=== PATIENT | female | born 1945 | race Caucasian/White ===

== ENCOUNTER → 2019-12-09 | Outpatient (CLI) | payer MEDICARE, OTHER ==
--- NOTE | 2019-12-09 11:26 | XR ---
EXAMINATION TYPE: XR cervical spine comp DATE OF EXAM: 12/09/2019 COMPARISON: None HISTORY: Cervicalgia TECHNIQUE: Five-view cervical spine FINDINGS: There is loss of disc height diffusely through the mid cervical spine. This appears greates t at C4-5 C5-6 C6-7. Some minimal endplate spurring at C4-5 C5-6 may be present. Posterior spinal hampton ellar line is intact. Mild foraminal narrowing is present C5-6 on the right. Moderate foraminal narro wing is present C5-6 on the left. Milder C4-5 and C6-7 foraminal narrowing is present. Facet degenera tive changes are present. Odontoid is limited due to overlying occiput. IMPRESSION: 1. Foraminal narrowing greater on the left than the right. Greatest through the C5-6 level. 2. Degenerative disc changes through the mid cervical spine. 3. No acute osseous abnormality.
--- NOTE | 2019-12-09 11:30 | XR ---
EXAMINATION TYPE: XR shoulder complete RT DATE OF EXAM: 12/09/2019 COMPARISON: NONE HISTORY: Pain TECHNIQUE: Shoulder examined in 3 projections FINDINGS: The humeral head articulates with the glenoid. There is loss of joint space in this region. Some mamadou ral head spurring is present. The acromio-clavicular junction is normal. No acute fractures or dislocations are evident. A follow up study can be performed 7-10 days from acute trauma for continued pain. IMPRESSION: 1. Moderate osteoarthritic degenerative change right shoulder
== END | disposition home or self-care (01) ==
LOC: RADXRYALE 10:44
PROVIDERS: ATTEND Family Medicine
DX: M48.02 Spinal stenosis, cervical region (principal); M47.812 Spondylosis without myelopathy or radiculopathy, cervical region; M19.011 Primary osteoarthritis, right shoulder
CPT/HCPCS: 72050

== ENCOUNTER → 2020-08-04 | Outpatient (CLI) | payer MEDICARE, OTHER ==
[2020-08-04 13:58] VITALS: BP 118/77; PULSE 90; RESP 20; TEMP 98.1
--- NOTE | 2020-08-04 14:27 | P.PAINCN ---
History of Present Illness - Reason for Consult Consult date: 08/04/20 - History of Present Illness Trisha is a 74-year-old female presents today as a new patient consult. She presents a chief complaint of neck pain and shoulder pain. She'll be seen Dr. Blanco and she has had cervical medial branch blocks which she reports improved her pain significantly. She is here today to schedule a second cervical medial branch blocks at the C3 4 C4 5 levels. She denies any significant numbness or tingling down her arms. She has bilateral shoulder weakness. She has a lot of difficulty raising her arms up above 90. She seen Dr. Marvin for that and he given her to steroid injections which did not improve her symptoms. She does have a follow-up appointment with him. She also does have a history of low back pain, she reports she has lumbar spinal stenosis with pain in the low spine rating down both legs occasionally. She occasionally has weakness but is doing okay right now. We do not have that MRI available at this time. \ X-rays of the cervical spine show potential left foraminal narrowing from C4 to C5 and C5-C6. Is also moderate osteoporosis of the shoulder joint on the left. Review of Systems Negative except as mentioned in HPI Past Medical History Past Medical History: Asthma, GERD/Reflux, Hypertension, Sleep Apnea/CPAP/BIPAP Additional Past Medical History / Comment(s): NO CURRENT MACHINE FOR SLEEP APNEA, hx gastric sleeve, .hx of septicemia., neck, back and shoulder pain, uses cane and rolling walker prn. History of Any Multi-Drug Resistant Organisms: None Reported Past Surgical History: Adenoidectomy, Bariatric Surgery, Hernia Repair, Joint Replacement, Tonsillectomy Additional Past Surgical History / Comment(s): GASTRIC SLEEVE (2010- DR MENDEZ), CARPAL TUNNEL MARILYN, CATARACTS, INGUINAL HERNIA, MARILYN TOTAL KNEES, RIGHT TOTAL HIP., injections in back for spinal stenosis and cervical injections Past Anesthesia/Blood Transfusion Reactions: No Reported Reaction, Motion Sickness Past Psychological History: Anxiety, Depression Smoking Status: Never smoker Past Alcohol Use History: None Reported Additional Drug Use History / Comment(s): cbd gummies daily - Past Family History Mother Family Medical History: No Reported History Medications and Allergies Home Medications Medication Instructions Recorded Confirmed Type ALPRAZolam [Xanax] 0.25 mg PO BID PRN 08/02/20 08/04/20 History Allopurinol [Zyloprim] 300 mg PO DAILY 08/02/20 08/04/20 History Amoxicillin 2,000 mg PO ONCE PRN 08/02/20 08/04/20 History Budesonide [Rhinocort Allergy] 1 spr EA NOSTRIL DAILY 08/02/20 08/04/20 History Calcium 600 With D3 1 tab PO DAILY 08/02/20 08/04/20 History Cannabidiol (Cbd) [Epidiolex] 1 dose PO DAILY 08/02/20 08/04/20 History Cholecalciferol [Vitamin D3 (25 4,000 unit PO DAILY 08/02/20 08/04/20 History Mcg = 1000 Iu)] FLUoxetine HCL [PROzac] 60 mg PO DAILY 08/02/20 08/04/20 History Famotidine [Pepcid] 20 mg PO DAILY 08/02/20 08/04/20 History Ipratropium/Albuterol Updraft 1 dose PO DIRECTED 08/02/20 08/04/20 History Loratadine [Claritin] 10 mg PO DAILY 08/02/20 08/04/20 History Losartan/Hydrochlorothiazide 1 tab PO DAILY 08/02/20 08/04/20 History [Losartan-Hctz 100-25 mg Tab] Multivitamins, Thera [Multivitamin 1 tab PO DAILY 08/02/20 08/04/20 History (formulary)] Naproxen Sodium [Aleve] 220 - 660 mg PO DAILY PRN 08/02/20 08/04/20 History Simvastatin [Zocor] 20 mg PO HS 08/02/20 08/04/20 History Zafirlukast [Accolate] 20 mg PO BID 08/02/20 08/04/20 History amLODIPine BESYLATE 10 mg PO DAILY 08/02/20 08/04/20 History busPIRone HCL 10 mg PO BID 08/02/20 08/04/20 History Allergies Allergy/AdvReac Type Severity Reaction Status Date / Time sulfamethoxazole AdvReac Unknown STOMACH Verified 08/02/20 15:58 [From Bactrim] PAIN trimethoprim [From Bactrim] AdvReac Unknown STOMACH Verified 08/02/20 15:58 PAIN HORSE SERUM TETANAS Allergy Severe Anaphylaxis Uncoded 08/02/20 15:57 Physical Exam General: Awake and alert oriented 3 no distress Respiratory exam: No audible wheezing no accessory muscle usage Cardiovascular exam: regular rate, palpable bilateral pulses, no lower extremity edema Abdominal exam: No distention nontender to palpation Cervical spine: Flexion is preserved, extension is limited to 0 P. Right and left lateral sidebending are significantly limited. Braswell's is negative bilaterally. Upper shoulder strength is normal bilaterally. Woods Overseer strength is normal. Pincer grasp is normal. Lumbar spine: Loss of lumbar lordosis, atrophy of the paraspinal muscles. Lower extremity strength is 4-5 bilaterally at the hamstrings and quadriceps. Is able stand on her toes and her heels. Deep tendon reflexes are 2+ bilaterally. Sacroiliac joints: Nontender to palpation, ALEX is negative, Gaenselon negative Neuro exam: Normal sensation in bilateral upper extremities, deep tendon reflexes are 2+ bilateral upper extremities. Normal sensation in bilateral lower extremities. Deep tendon reflexes are 2+ in lower extremities Psych exam: Cooperative, appropriate mood Assessment and Plan Assessment: Cervical spondylosis without myelopathy Shoulder also arthritis, Lumbar spinal stenosis Plan: Schedule for bilateral cervical medial branch blocks at the C3-C4, C4-C5 levels bilaterally. This is because the second test injection. She had one done Dr. Blanco's office. We discussed beta frequency ablation of the cervical spine the potential long-term treatment. We discussed that she follow-up with Dr. Marvin for shoulder pain. Do not believe any steroid injections would improve her shoulder function. PQRS Measure Charge Sheet Measure #130: Documentation of Current Meds in Medical Chart: Patient's medications documented in chart Measure #226: Tobacco Use: Screen & Cessation Intervention: Pt screened for tobacco use AND intervention given Measure #111: Pneumonia Vaccination: Pneumococcal vaccine administered or previously received Measure #47: Advance Care Plan: Advance care planning discussed & documented, plan or surrogate given Measure #412: Opioid Treatment Agreement: Documented signed opioid trtmnt agreemnt min once during opioid trtmnt Measure #408: Opioid Therapy Follow-up Evaluation: Patient had NO f/u eval minimum every 3 months during opioid therapy Measure #317: Preventitive Care & Scrn High Bld Press & F/U: Normal blood pressure, f/u not required Measure #128: Body Mass Index (BMI) Screening & Follow-up: BMI documented ABOVE normal parameters - f/u documented Measure #131: Pain Assessment & Follow-up: Pain positive & plan documented Measure #431: Unhealthy Alcohol Use Preventative Care & Scrn: Patient not identified as an unhealthy alcohol user PQRS Narrative: Pain Intensity [Bilateral 10 Shoulder] Pain Intensity [Lower Back] 7 Pain Intensity [Neck] 1 Scale Used Numeric (1 - 10) Home Medications: Ambulatory Orders ALPRAZolam [Xanax] 0.25 mg PO BID PRN 08/02/20 Allopurinol [Zyloprim] 300 mg PO DAILY 08/02/20 Amoxicillin 2,000 mg PO ONCE PRN 08/02/20 Budesonide [Rhinocort Allergy] 1 spr EA NOSTRIL DAILY 08/02/20 Calcium 600 With D3 1 tab PO DAILY 08/02/20 Cannabidiol (Cbd) [Epidiolex] 1 dose PO DAILY 08/02/20 Cholecalciferol [Vitamin D3 (25 Mcg = 1000 Iu)] 4,000 unit PO DAILY 08/02/20 FLUoxetine HCL [PROzac] 60 mg PO DAILY 08/02/20 Famotidine [Pepcid] 20 mg PO DAILY 08/02/20 Ipratropium/Albuterol Updraft 1 dose PO DIRECTED 08/02/20 Loratadine [Claritin] 10 mg PO DAILY 08/02/20 Losartan/Hydrochlorothiazide [Losartan-Hctz 100-25 mg Tab] 1 tab PO DAILY 08/02/20 Multivitamins, Thera [Multivitamin (formulary)] 1 tab PO DAILY 08/02/20 Naproxen Sodium [Aleve] 220 - 660 mg PO DAILY PRN 08/02/20 Simvastatin [Zocor] 20 mg PO HS 08/02/20 Zafirlukast [Accolate] 20 mg PO BID 08/02/20 amLODIPine BESYLATE 10 mg PO DAILY 08/02/20 busPIRone HCL 10 mg PO BID 08/02/20
== END | disposition home or self-care (01) ==
LOC: PNWHC3 13:41
PROVIDERS: ATTEND Hospitalist
DX: M48.061 Spinal stenosis, lumbar region without neurogenic claudication (principal); M47.812 Spondylosis without myelopathy or radiculopathy, cervical region; M19.019 Primary osteoarthritis, unspecified shoulder; Z79.899 Other long term (current) drug therapy; Z79.02 Long term (current) use of antithrombotics/antiplatelets; Z79.1 Long term (current) use of non-steroidal anti-inflammatories (NSAID)
CPT/HCPCS: 99211

== ENCOUNTER → 2020-08-27 | Day surgery (SDC) | payer MEDICARE, OTHER ==
[~2020-08-27] MED LIST: IOPAMIDOL M200 10 ML VIAL ONE; IV FLUID CONTINUATION 600 ML IV ONE; LACTATED RINGERS 1,000 ML IV ONE; LIDOCAINE 1% (10MG/ML) FOR IV START INTRADERMA ONE; MIDAZOLAM 2 MG/2 ML VIAL ONE; ROPIVACAINE 5MG/ML 20ML VIAL ONE; fentaNYL (PF) 50 MCG/ML 2 ML AMP ONE
[2020-08-27 12:45] VITALS: RESP 16; TEMP 97.8
--- NOTE | 2020-08-27 13:54 | P.PCN ---
Date of Procedure: 08/27/20 Description of Procedure: PREOPERATIVE DIAGNOSIS : Cervicalgia with Facet Arthropathy without myelopathy POSTOPERATIVE DIAGNOSIS: same PROCEDURE: second Diagnostic cervical medial branch block with fluoroscopy at C3, C4, C5 [bilateral] which covers facets C3-C4 and C4-C5 ANESTHESIA: Local anesthetic; moderate IV sedation Fluoroscopy was used for the procedure and images were saved in the radiology portion of the chart. Surgeon: Chapito Taylor MD PROCEDURE INDICATION: Cervical pain without radiculopathy, not responsive to conservative management. PROCEDURE DESCRIPTION: the patient was seen and identified in the preop holding area , risks and benefits and possible complications of the procedure and alternatives were discussed with the patient, and the patient agreed to proceed with the procedure and signed the consent . IV was started , vital signs were monitored during the procedure and fluoroscopy was used to maximize the benefit and accuracy of the needle placement, and sedation was given to decrease patient anxiety. Patient was taken to the procedure room and placed in prone position. An AP fluoroscopic roustabout hand film was taken to identify the dens, the C3, C4, C5 vertebral bodies, and the waists of the articular pillars at the aforementioned levels. A lateral view was then used to identify the aformentioned levels and centroids of C3, C4, C5 The skin was prepped with chlorhexidine and draped in the usual sterile fashion. The skin and subcutaneous tissue overlying the above levels were anesthetized using a 25-gauge 1-1/2-inch needle with 1% preservative free lidocaine for a total volume of 1 ml per level. An 25-gauge 3.5" Quinke needle was advanced, coaxially, in the pillar view until the needle tip was noted to sit in center of the centroid. A true lateral view needle tips were advanced to cover to the, lateral aspect of the articular pillar at bilateral C3 C4 C5 levels.The needle positions were confirmed with AP and lateral fluoroscopic views. 0.2 mL of Isovue 200 per level was injected which revealed no vascular uptake and after negative aspiration, 0.5 mL of marcaine 0.5% was injected at each level and the needle subsequently removed . At the end of the procedure and the needles were removed and a bandage applied after the skin was cleaned. The patient was taken to recovery room in stable condition and monitors in the recovery room for 20-30 minutes and discharged home in stable condition after discharge criteria met and patient will follow up in clinic in 2 weeks EBL: Minimal COMPLICATION: None.
[2020-08-27 14:10] VITALS: BP 128/72; PULSE 80
--- NOTE | 2020-08-27 14:54 | FL ---
Fluoroscopy INDICATION: Pain FINDINGS: Fluoroscopy time: 29 seconds. Images obtained: 6. IMPRESSIONS: 1. Documentation of fluoroscopy.
== END ==
LOC: ORPAIN 12:12
PROVIDERS: ATTEND Anesthesiology
DX: M47.812 Spondylosis without myelopathy or radiculopathy, cervical region (principal); I10 Essential (primary) hypertension; E78.5 Hyperlipidemia, unspecified; J45.909 Unspecified asthma, uncomplicated; E66.9 Obesity, unspecified; F41.9 Anxiety disorder, unspecified; Z88.2 Allergy status to sulfonamides; Z78.0 Asymptomatic menopausal state; Z68.39 Body mass index [BMI] 39.0-39.9, adult
CPT/HCPCS: 64490; 64491; J2250; J3010; J2795

== ENCOUNTER → 2020-09-13 | Outpatient (CLI) | payer MEDICARE, OTHER ==
[2020-09-13 12:26] VITALS: BP 118/70; PULSE 73; RESP 16; TEMP 97.5
--- NOTE | 2020-09-13 13:05 | P.PN ---
Subjective Progress Note Date: 09/13/20 This is a follow-up visit for this 74 years old female with a chronic history of severe neck pain and bilateral shoulder pain and low back pain, she is diagnosed with cervical spondylosis with cervical facet arthropathy, and bilateral shoulder arthralgia, and lumbar spinal stenosis, patient had diagnostic medial branch block cervical area , the first diagnostic block was done by Dr. Dr. Blanco at the [facility] and she reported that her pain was 7/10 before the block dropped to 1-2/10 after the block, and the second diagnostic medial branch block cervical area was done at [facility], and she reported that her pain was 7-8/10 before the block dropped to 1-2/10 after the block, the pain relief lasted for a few days, currently she is complaining of severe neck pain which is increased with any neck movement, also she is complaining of bilateral shoulder pain increases with any shoulder movement, she denies any motor or sensory deficits denies any fever or night sweats and there is no change in the bowel movement or urination Objective - Vital Signs Vital signs: Vital Signs Temp 97.5 F L 09/13/20 12:19 Pulse 73 09/13/20 12:19 Resp 16 09/13/20 12:19 BP 118/70 09/13/20 12:19 Pulse Ox 97 09/13/20 12:19 - Exam Physical Examinations : -Constitutiona : Cooperative , not in acute distress . -HEENT : nech : supple , no Lymphadenopathy , normal thyroid size . : eyes : no ptosis , no icterus, no photophobia . - neurologic : Cranial nerve II to XII intact , no focal neurological deffecit . -psychatric : alert , oriented X 3 , appropriate affect , intact judgment and insight . -Lymphatic : no Lymphadenopathy . - musculoskeltal : Cervical Spine motor stregnth in the deltoid and biceps, normal right side , normal Left side motor stregnth biceps and the wrist extensors normal right side ,normal left side . motor stregnth in the triceps muscle . normal Right side , normal Left side deep tendon reflexes normal at the biceps , normal at Brachioradialis , normal at triceps. cervical facet loading test= Positive Bilaterally Spurling test= positive bilaterally. Neck distraction test= positive bilaterally. Vernon sign= positive bilaterally. Shoulders= active and passive movement of bilateral shoulder associated with pain and decreased range of motion of shoulder joints bilaterally Lumber spine moter stegnth lower extremities ,thigh and legs 5/5 Right side , 5/5 Left side Assessment and Plan Plan: Assessment and plan=1-cervical spondylosis with cervical facet arthropathy without myelopathy. 2-bilateral shoulder arthralgia. Patient had a positive result after diagnostic medial branch block cervical area 2 , he had more than 70% improvement of her neck pain She will be good candidate to have RFA of the medial branch cervical area at C3, C4 , C5 bilaterally - PQRS measures = - Patient's medications are documented in the chart. -Tobacco use is negative and counseling.Given. -Patient's has not received pneumococcal vaccine. -Advanced care planning discussed, patient not eligible. -Opiate contract signed. -Pain positive and follow-up visit/procedure is scheduled. -Patient's blood pressure measured [118/70 ] , and documented in the record ,and patient will follow up with the primary care. -Patient's weight was measured and body mass index above the normal limits and counseling was done. and patient instructed to follow-up with the primary care physician. -Patient was not identified as an unhealthy alcohol user Time with Patient: Less than 30
== END | disposition home or self-care (01) ==
LOC: PNWHC3 12:11
PROVIDERS: ATTEND Specialist
DX: M47.812 Spondylosis without myelopathy or radiculopathy, cervical region (principal); M25.512 Pain in left shoulder; M25.511 Pain in right shoulder
CPT/HCPCS: 99211

== ENCOUNTER 2020-10-05 12:47 | Day surgery (SDC) | payer MEDICARE, OTHER ==
[2020-10-04 10:52] VITALS: BMI 37.4
[2020-10-05 13:06] VITALS: RESP 16; TEMP 98.5
[2020-10-05] MEDS ORDERED: LACTATED RINGERS 1,000 ML IV SCH (13:06)
[2020-10-05] MEDS ORDERED: LIDOCAINE 1% (10MG/ML) FOR IV START INTRADERMA ONE (13:20)
[2020-10-05] MEDS ORDERED: ROPIVACAINE 5MG/ML 20ML VIAL ONE (13:55)
[2020-10-05] MEDS ORDERED: methylPREDNISolone ACETATE 40 MG/ML 1 ML VIAL ONE (13:55)
--- NOTE | 2020-10-05 14:36 | P.PCN ---
Date of Procedure: 10/05/20 Procedure(s) Performed: PREOPERATIVE DIAGNOSIS: Cervical spondylosis with Facet Arthropathy without myelopathy. POSTOPERATIVE DIAGNOSIS: Cervical spondylosis with Facet Arthropathy without myelopathy. PROCEDURES: Radiofrequency thermocoagulation bilateral C3, C4, C5 medial branch with Fluroscopy [place]idence(fluoroscopy was available in etiology department ) (to denervate the facet joint bilateral at C3- 4 , C4- 5 ) ANESTHESIA: Local infiltration with ropivacaine 0.5% only. EBL: Minimal PROCEDURE INDICATION: The patient with neck pain secondary to cervical arthropathy who had more than 50% relief of her pain with previous diagnostic cervical medial branch block. PROCEDURE DESCRIPTION / TECHNIQUE: The patient was seen and identified in the preoperative area. Risks, benefits, complications, and alternatives were discussed with the patient, the patient agreed to proceed with the procedure and signed the consent. IV was started. Vital signs remained stable throughout the procedure. Patient was taken to the OR and time out was completed. The patient was placed in the prone position on the procedure table. A pillow was placed under the patients chest to increase the cervical interlaminar space. The cervical area was prepped and draped in the usual sterile fashion. Critical pause was taken. Vital signs were closely monitored during the procedure.. Using cross-table lateral fluoroscopy, the centroid of the trapezoid of right C3, C4, C5, were identified, marked, and localized with 1% lidocaine. Subsequently, a 20 [id number] radiofrequency cannula with a 10-mm active tip was advanced guided by fluoroscopy to the centroid of the trapezoid of right C3, C4, C5. Needle tip position was confirmed at the centroid of the trapezoids of right C3, C4, C5, with anteroposterior fluoroscopy. Each site then underwent sensory testing at 50 Hz and 0 to 1 volt and motor testing at 2 Hz and 0 to 3 volt with local stimulation, but no radicular symptoms down the arm. Thereafter each sites underwent radiofrequency thermocoagulation at 80 degrees celsius for 90 seconds after injecting 0.5 ml of PF Ropivacaine 0.5 %. After thermocoagulation, 1 ml of the block solution containing Depo-Medrol 20 mg and 3mL of preservative-free normal saline was injected at the right C3, C4, C5, levels after negative aspiration of CSF and blood and with no paresthesias. Cannulas were retracted while injecting ropivacaine 0.5% % until the needle is out. Then later on the exact same procedure was done for the left side C3 ,C4 and C5, and after the procedure was done Skin was cleansed and bandages were applied. COMPLICATIONS: No acute complications. DISPOSITION / PLANS: The patient was placed in a supine position and transferred to the recovery area in a stable condition for observation and was discharged from the recovery room after meeting discharge criteria. Home discharge instructions given to the patient by the staff. The patient was reexamined prior to discharge. The patient will schedule a follow up in the clinic in 2-4 weeks.
[2020-10-05] MEDS ORDERED: IV FLUID CONTINUATION 500 ML IV ONE (14:38)
[2020-10-05 15:05] VITALS: BP 145/76; PULSE 67
--- NOTE | 2020-10-05 15:07 | FL ---
Fluoroscopy INDICATION: Pain FINDINGS: Fluoroscopy time: 22 seconds. Images obtained: 6. IMPRESSIONS: 1. Documentation of fluoroscopy.
== END 2020-10-05 15:14 | disposition home or self-care (01) ==
LOC: ORPAIN 12:47
PROVIDERS: ATTEND Specialist
DX: M47.812 Spondylosis without myelopathy or radiculopathy, cervical region (principal); Z88.2 Allergy status to sulfonamides; Z91.09 Other allergy status, other than to drugs and biological substances
CPT/HCPCS: 64633; 64634; J1030; J2795; 99152; 99153

== ENCOUNTER → 2020-10-25 | Outpatient (CLI) | payer MEDICARE, OTHER ==
[2020-10-25 11:24] VITALS: BP 134/83; PULSE 98; RESP 18; TEMP 98.2
--- NOTE | 2020-10-25 11:40 | P.PAINPG ---
Subjective Progress Note Date: 10/25/20 75-year-old female who returns for postprocedural follow-up visit. She had bilateral cervical radio fluency ablation of C3-C4, C4-C5 medial branches. She reported 90% relief. She is noted significant improved ADLs, improve range of motion, less pain with activity. She is happy with her current treatment plan. She denies any new symptoms. Objective - Vital Signs Vital signs: Vital Signs Temp 98.2 F 10/25/20 11:21 Pulse 98 10/25/20 11:21 Resp 18 10/25/20 11:21 BP 134/83 10/25/20 11:21 Pulse Ox 97 10/25/20 11:21 - Exam General: Awake and alert oriented 3 no distress Respiratory exam: No audible wheezing no accessory muscle usage Cardiovascular exam: regular rate, palpable bilateral pulses, no lower extremity edema Abdominal exam: No distention nontender to palpation Cervical spine: Flexion is preserved, extension is appropriate prove lateral rotation left and right Braswell's is negative bilaterally. Upper shoulder strength is normal bilaterally. Irrigator Head strength is normal. Pincer grasp is normal. Lumbar spine: Loss of lumbar lordosis, atrophy of the paraspinal muscles. Lower extremity strength is 4-5 bilaterally at the hamstrings and quadriceps. Is able stand on her toes and her heels. Deep tendon reflexes are 2+ bilaterally. Sacroiliac joints: Nontender to palpation, ALEX is negative, Gaenselon negative Neuro exam: Normal sensation in bilateral upper extremities, deep tendon reflexes are 2+ bilateral upper extremities. Normal sensation in bilateral lower extremities. Deep tendon reflexes are 2+ in lower extremities Psych exam: Cooperative, appropriate mood Assessment and Plan Assessment: 1. Cervical spondylosis 2. Cervicalgia Plan: Patient to follow up as needed for repeat RFA's. No further workup required this moment. Time with Patient: Less than 30 PQRS Measure Charge Sheet PQRS Narrative: Blood Pressure 134/83 Pain Intensity [Upper Back] 1 Scale Used Numeric (1 - 10) Hx Alcohol Use (MH) No Home Medications: Ambulatory Orders ALPRAZolam [Xanax] 0.25 mg PO BID PRN 08/02/20 Allopurinol [Zyloprim] 300 mg PO DAILY 08/02/20 Amoxicillin 2,000 mg PO ONCE PRN 08/02/20 Budesonide [Rhinocort Allergy] 1 spr EA NOSTRIL DAILY PRN 08/02/20 Calcium 600 With D3 1 tab PO DAILY 08/02/20 Cholecalciferol [Vitamin D3 (25 Mcg = 1000 Iu)] 4,000 unit PO DAILY 08/02/20 FLUoxetine HCL [PROzac] 60 mg PO DAILY 08/02/20 Famotidine [Pepcid] 20 mg PO DAILY 08/02/20 Ipratropium/Albuterol Updraft 1 dose PO DIRECTED 08/02/20 Loratadine [Claritin] 10 mg PO DAILY 08/02/20 Losartan/Hydrochlorothiazide [Losartan-Hctz 100-25 mg Tab] 1 tab PO DAILY 08/02/20 Multivitamins, Thera [Multivitamin (formulary)] 1 tab PO DAILY 08/02/20 Naproxen Sodium [Aleve] 220 - 660 mg PO DAILY PRN 08/02/20 Simvastatin [Zocor] 20 mg PO HS 08/02/20 Zafirlukast [Accolate] 20 mg PO BID 08/02/20 amLODIPine BESYLATE 10 mg PO DAILY 08/02/20 busPIRone HCL 10 mg PO BID 08/02/20 Controlled Substance Measures - Controlled Substance Measures Is patient prescribed a controlled substance at discharge?: No
== END | disposition home or self-care (01) ==
LOC: PNWHC3 11:12
PROVIDERS: ATTEND Anesthesiology
DX: M47.812 Spondylosis without myelopathy or radiculopathy, cervical region (principal); Z79.899 Other long term (current) drug therapy; Z79.891 Long term (current) use of opiate analgesic
CPT/HCPCS: 99211

== ENCOUNTER → 2021-03-11 | Outpatient (CLI) | payer MEDICARE, OTHER ==
--- NOTE | 2021-03-11 16:04 | XR ---
EXAMINATION TYPE: XR lumbosacral spine min 4V DATE OF EXAM: 03/11/2021 CLINICAL HISTORY: Right lower back pain and burning after strain injury. Burning down right leg into groin TECHNIQUE: Frontal, lateral, and oblique images of the lumbar spine are obtained. COMPARISON: None FINDINGS: Diffuse bony demineralization. There are 5 nonrib-bearing lumbar-type vertebral bodies. Loni ntenance of the normal lumbar lordosis. Narrowing of the intervertebral disc spaces at L1-2, L2-3, L3 -4, L4-5 and L5-S1. There is grade 1 anterolisthesis of L4 on L5. Minimal retrolisthesis of L1 on L2. Mild loss of vertebral body height of T12 is age-indeterminate. There is a bridging osteophyte at T1 1-12. Degenerative changes of the facets which appear in alignment. Mild levocurvature of the lumbar spine. Sacroiliac joints are intact. IMPRESSION: 1. Multilevel degenerative changes as described above. 2. There is a mild compression deformity of the T12 vertebral body which is age-indeterminate.
== END | disposition home or self-care (01) ==
LOC: RADXRYALE 10:35
PROVIDERS: ATTEND Family Medicine
DX: M51.37 Other intervertebral disc degeneration, lumbosacral region (principal); M43.16 Spondylolisthesis, lumbar region; M25.78 Osteophyte, vertebrae; M47.816 Spondylosis without myelopathy or radiculopathy, lumbar region; M43.8X6 Other specified deforming dorsopathies, lumbar region
CPT/HCPCS: 72110

== ENCOUNTER → 2021-08-10 | Outpatient (CLI) | payer MEDICARE, OTHER ==
[2021-08-10 14:04] VITALS: BP 105/70; PULSE 104; RESP 18; TEMP 96.8
--- NOTE | 2021-08-10 15:21 | P.PN ---
Subjective Progress Note Date: 08/10/21 Ms. Brito is a 75-year-old female presenting to clinic today for a complaint of low back pain. She was last seen in our office in October 2020 after completing a cervical radiofrequency ablation with very good success. Today she is reporting continued chronic low back pain that has been aggravating her for many years. She describes it as a nonradiating pain in her lower back just above her buttocks. She just describes it as an ache and states it hurts a lot. Pain is aggravated with walking. Pain is relieved with sitting and rest. She has not had physical therapy for this issue. She does take Mobic daily. She reports on average her pain is 5 out of 10. She denies any bowel or bladder dysfunction, saddle anesthesia, or any other red flag symptoms. Objective - Exam Physical Examinations : -Constitutiona : Cooperative , not in acute distress . -HEENT : nech : supple , no Lymphadenopathy , normal thyroid size . : eyes : no ptosis , no icterus, no photop hobia . - neurologic : Cranial nerve II to XII intact , no focal neurological deffecit . -psychatric : alert , oriented X 3 , appropriate affect , intact judgment and insight . -Lymphatic : no Lymphadenopathy . - musculoskeltal : Lumber spine moter stegnth lower extremities ,thigh and legs 5/5 Right side , 5/5 Left side deep tendon reflexes : normal Knee Jerk , normal ankle Jerk lumber facet Loading Test =positive Right , positive Left Range of motion of the lumbar spine Flexion 30 degrees, extension 10 degrees Lumbar paraspinal muscles painful to palpation bilaterally strait leg raising test = negative Fabere test= negative Limited tenderness over the Sacroiliac joint on the Right , and Left sides Gaenslen test= negative Seated flexion test= negative Distraction test= negative Sacroiliac compression test= negative Assessment and Plan Assessment: Assessment and plan Assessment: Lumbar spondylosis and facet arthropathy without myelopathy Lumbar degenerative disc disease Cervical spondylosis and facet arthropathy without myelopathy Cervical degenerative disc disease Plan: Scheduled patient for diagnostic medial branch block at L4 5 and L5-S1. If she has significant relief with the diagnostic moved to confirmatory medial branch block up to and including RFA - PQRS measures = - Patient's medications are documented in the chart. -Tobacco use is positive/negative and counseling.Given. -Patient's has not received pneumococcal vaccine. -Advanced care planning discussed, patient not eligible. -Opiate contract signed. -Pain positive and follow-up visit/procedure is scheduled. -Patient's blood pressure measured [ ] , and documented in the record ,and patient will follow up with the primary care. -Patient's weight was measured and body mass index [ ] above the,within the normal limits and counseling was done. and patient instructed to follow-up with the primary care physician. -Patient was not identified as an unhealthy alcohol user Time with Patient: Less than 30
== END ==
LOC: PNWHC3 13:48
PROVIDERS: ATTEND Student in an Organized Health Care Education/Training Program
DX: M47.816 Spondylosis without myelopathy or radiculopathy, lumbar region (principal); M51.36 Other intervertebral disc degeneration, lumbar region; M47.812 Spondylosis without myelopathy or radiculopathy, cervical region; M50.30 Other cervical disc degeneration, unspecified cervical region; Z88.7 Allergy status to serum and vaccine; Z88.2 Allergy status to sulfonamides
CPT/HCPCS: 99211

== ENCOUNTER → 2021-09-05 | Outpatient (CLI) | payer MEDICARE, OTHER ==
--- NOTE | 2021-09-05 08:40 | US ---
EXAMINATION TYPE: US abdomen limited DATE OF EXAM: 09/05/2021 COMPARISON: NONE CLINICAL HISTORY: R10.11 Right upper quadrant pain. EXAM MEASUREMENTS: Liver Length: 16.5 cm Gallbladder Wall: 0.2 cm CBD: 0.8 cm Right Kidney: 10.3x3.4x6.0 cm Pancreas: Duct 0.2cm Liver: Slightly heterogenous Gallbladder: Multiple gallstones 0.8cm largest. large amount of sludge. Evidence for sonographic Marvin's sign: No CBD: wnl Right Kidney: Cyst inferior lateral 0.8x0.6x0.7cm IMPRESSION: 1. Mild fatty liver. 2. Gallstones with underlying gallbladder sludge.
== END | disposition home or self-care (01) ==
LOC: RADUSWWP 07:49
PROVIDERS: ATTEND Family Medicine
DX: K76.0 Fatty (change of) liver, not elsewhere classified (principal); K80.20 Calculus of gallbladder without cholecystitis without obstruction
CPT/HCPCS: 76705

== ENCOUNTER → 2021-09-08 | Outpatient (CLI) | payer MEDICARE, OTHER ==
--- NOTE | 2021-09-08 15:47 | BD ---
EXAMINATION TYPE: Axial Bone Density DATE OF EXAM: 09/08/2021 COMPARISON: 05/31/2016 CLINICAL HISTORY: Height: 63 IN Weight: 227 LBS FRAX RISK QUESTIONS: History of Fracture in Adulthood: RT ANKLE AGE 73; RT FOREARM AGE 50 Secondary Osteoporosis: 3. Menopause before 45: AGE 53 RISK FACTORS HISTORY OF: History of Wrist Fracture: RT WRIST FX AGE 50 Surgery to Hip(right): YES AGE 65 Active: LIMITED Diet low in dairy products/other sources of calcium: YES Postmenopausal woman: AGE 53 Lost more than 2 inches in height since high school: YES 10/09" MEDICATIONS: Additional Medications: CALCIUM, VIT D, LOSARTAN, FAMOTIDINE, FLUOXETINE, BUSPIRONE, AMLODIPINE, ALLO PURINOL, ZAFIRLUKAST, SIMVASTATIN OMEPRAZOLE, MOBIC, EXAM MEASUREMENTS: Bone mineral densitometry was performed using the [employer] System. Bone mineral density as measured about the Lumbar spine is: ----- L1-L4(G/cm2): 1.240 T Score Values are as follows: ----- L2: 0.1 ----- L3: 0.4 ----- L4: 0.9 ----- L1-L4: 0.5 Bone mineral density has: Increased 3.5since study of: 05/31/2016 Bone mineral density about the L hip (g/cm2): 0.842 T Score values are as follows: -----L Neck: -1.4 -----L Total: -1.1 Bone mineral density has: Decreased -5.1ince study of: 05/31/2016 IMPRESSION: Osteopenia NOTE: T-SCORE=SD OF THE YOUNG ADULT MEAN.
== END | disposition home or self-care (01) ==
LOC: RADBDWWP 15:01
PROVIDERS: ATTEND Family Medicine
DX: M85.88 Other specified disorders of bone density and structure, other site (principal); Z78.0 Asymptomatic menopausal state
CPT/HCPCS: 77080

== ENCOUNTER 2021-09-22 09:52 | Day surgery (SDC) | payer MEDICARE, OTHER ==
[2021-09-21 09:58] VITALS: BMI 38.9
[2021-09-22 10:27] VITALS: TEMP 96.9
[2021-09-22] MEDS: LACTATED RINGERS 1,000 ML IV SCH ×2 (10:27→10:33)
[2021-09-22 10:32] LABS: Glucose,Whole Blood 123 mg/dL (75-99)
[2021-09-22] MEDS ORDERED: methylPREDNISolone ACETATE 40 MG/ML 1 ML VIAL ONE (10:34)
[2021-09-22] MEDS ORDERED: .fentaNYL (PF) 50 MCG/ML 2 ML AMP ONE (10:34)
[2021-09-22] MEDS ORDERED: MIDAZOLAM 2 MG/2 ML VIAL ONE (10:34)
[2021-09-22] MEDS ORDERED: ROPIVACAINE 5MG/ML 20ML VIAL ONE (10:34)
--- NOTE | 2021-09-22 10:58 | P.PCN ---
Date of Procedure: 09/22/21 Procedure(s) Performed: PREOPERATIVE DIAGNOSIS : 1- Lumbar spondylosis with Facet Arthropathy without myelopathy . 2- Lumber degenerative disc disease POSTOPERATIVE DIAGNOSIS: 1- Lumbar spondylosis with Facet Arthropathy without myelopathy . 2- Lumber degenerative disc disease PROCEDURE: Diagnostic bilateral L3 , L4 , and L5 medial branch block under fluoroscopy guidance(fluoroscopy images available in the radiology Department ) ( To target the facet joint between Bilateral L4-5 , and L5-S1 )# 1st ANESTHESIA:, moderate sedation with intravenous Versed 1 mg and Fentanyl 50 mcg. EBL: Minimal COMPLICATION: None PROCEDURE INDICATION: Chronic low back pain secondary to Facet arthropathy unresponsive to conservative treatment. PROCEDURE DESCRIPTION: the patient was seen and identified in the preop holding area , risks and benefits and possible complications of the procedure and alternative were discussed with the patient, and the patient agreed to proceed with the procedure and signed the consent and vital signs monitored during the procedure and fluoroscopy was used to maximize the benefit and accuracy of the needle placement, and sedation was given to decrease patient anxiety, patient was taken to the procedure room and placed in prone position vital signs monitored in the back prepped with chlorhexidine X3 then under strict sterile technique using a right oblique fluoroscopy ,the junction of the transverse process and the superior articulating process of the right L3 , L4 , and L5 vertebra which corresponding to the fluoroscopy image of the eye of the Gianluca dog on the block side for the medial branches and subsequently , after local infiltration of skin and subcu tissuies with Ropivacaine 0.5 % , one mL at each level ,then 22-gauge 5 inches long Quincke-type needles , 3 needle was used , each one of them placed at the junction of the base of the transverse process and the superior articular process at the appropriate level, and the needle was advanced until the periosteum contacted, needle placement confirmed with AP oblique and lateral view and after appropriate needle placement confirmed, and after negative aspiration for heme and CSF and there was no paresthesia 1-1/2 mL of Ropivacaine 0.5% mixed with 20 mg Depo-Medrol , then half mL injected at each level after negative aspiration the needle subsequently removed and the same procedure repeated for the left side at left side at L3 , L4 and L5 levels. At the end of the procedure and the needles removed and a bandage applied after the skin was cleaned the cleaning solution patient taken to recovery room in stable condition and monitors in the recovery room for 20-30 minutes and discharged home in stable condition after discharge criteria met and patient will follow up with the pain clinic in 2-4 weeks
[2021-09-22 11:04] VITALS: RESP 14
[2021-09-22 11:15] VITALS: BP 117/79; PULSE 90
--- NOTE | 2021-09-22 15:09 | FL ---
EXAMINATION TYPE: FL guided pain mgmt statistic DATE OF EXAM: 09/22/2021 FLUOROSCOPY Fluoroscopy time of 17 seconds was used during bilateral lumbar facet blocks. 4 image/s document/s t he procedure.
== END 2021-09-22 11:38 | disposition home or self-care (01) ==
LOC: ORPAIN 09:52
PROVIDERS: ATTEND Specialist
DX: G89.29 Other chronic pain (principal); M51.36 Other intervertebral disc degeneration, lumbar region; M47.816 Spondylosis without myelopathy or radiculopathy, lumbar region; Z88.2 Allergy status to sulfonamides; Z88.8 Allergy status to other drugs, medicaments and biological substances
CPT/HCPCS: 64493; 64494; J2250; J1030; J3010; J2795; 99152

== ENCOUNTER → 2021-10-20 | Outpatient (CLI) | payer MEDICARE, OTHER ==
--- NOTE | 2021-10-20 13:12 | XR ---
EXAMINATION TYPE: XR chest 2V DATE OF EXAM: 10/20/2021 COMPARISON: 02/20/2013 HISTORY: 76-year-old female [id number], preoperative evaluation TECHNIQUE: Frontal and lateral views FINDINGS: Heart upper limits of normal in size. Aorta and pulmonary vasculature within normal limits. Focal bib asilar opacities have strained the configuration. Hyperinflation. Dictation the mid and lower thoraci c spine with mild to moderate degenerative disc disease midthoracic spine is accentuated midthoracic kyphosis. No pleural effusion. IMPRESSION: COPD and strandy bibasilar areas of atelectasis or scarring. No definite acute process.
== END | disposition home or self-care (01) ==
LOC: RADXRYALE 10:11
PROVIDERS: ATTEND Physician Assistant
DX: Z01.811 Encounter for preprocedural respiratory examination (principal); J44.9 Chronic obstructive pulmonary disease, unspecified; J98.11 Atelectasis
CPT/HCPCS: 71046

== ENCOUNTER → 2021-11-07 | Outpatient (CLI) | payer MEDICARE, OTHER ==
--- NOTE | 2021-11-07 11:27 | P.PN ---
Subjective Progress Note Date: 11/07/21 Principal diagnosis: A 76 yr old female with a history of severe and chronic low back pain secondary to lumbar degenerative disc diseases and lumbar spondylosis with facet arthropathy presents today for evaluation after a bilateral facet medial branch block of the L4-L5 and L5-S1. Patient experienced 75% pain relief for 5 weeks after procedure Pain level is currently at 7 out of 10 in intensity, dull and achy in the lumbar spine and radiates and a sharp shooting character down the bilateral hips . Pain is provoked by walking, sitting or standing for periods of 30 minutes or more or twisting. Pain is alleviated with medications, topicals, heat, stretching, physical therapy, rest and repositioning. Interventional pain procedures completed include bilateral L3-L4, L4-L5 facet block medial branches Patient is currently on Mobic Patient denies any side effects of the medication(s), denies excessive drowsiness or sleepiness, denies suicidal ideation and reports that the current pain medication is helping to control the pain and improve activities of daily living. Patient denies any motor or sensory deficits. Patient denies any fever or night sweats, denies any change in the bowel movements or urination. Physical Examination: -Constitutional: Cooperative. Not in acute distress . -HEENT: Neck is supple. No lymphadenopathy. No thyromegaly. Normal thyroid size. Eyes: No ptosis , no icterus, no photophobia. ENT: No auditory deficits. Normal oropharynx. No Thrush. - Respiratory: Chest clear to auscultations bilaterally. No wheezing. No rhonchi. - Cardiovascular: Regular rate and rhythm. S1 / S2 , no S3 , no S4. - Gastrointestinal: Abdomen soft no tenderness. Bowel sounds positive in all four quadrants. No organomegaly. - Genitourinary: Deferred. - Neurologic: Cranial nerve II to XII intact. No focal neurological deficits. - Psychatric: Alert & oriented x 3. Matching mood & appropriate affect. Judgment and insight intact. - Lymphatic: No Lymphadenopathy. - Musculoskeletal: Cervical spine: Muscle bulk/ tone/ strength in the bilateral upper extremities normal. Facet loading test cervical area positive. Lumbar spine: Motor bulk/ tone/ strength lower extremities , thigh and legs : 5/5 Deep tendon reflexes : Normal Knee Jerk. Normal Ankle Jerk . Lumbar Facet Loading Test positive over the L4-L5 & L5-S1 bilaterally Mild vertebral body tenderness to palpation over L5 & S1 Straight Leg Raise: positive at 30 degree right side/ left side Beny test: positive right side / left side Gaenslen's test positive Range of motion: Flexion of the lumbar spine <90 degrees Range of motion: Extension of the lumbar spine <20 degrees Severe tenderness over the Sacroiliac joint: right side / left side Assessment and plan: Chronic low back pain secondary to lumbar degenerative disc disease , lumbar spondylosis with facet arthropathy without myelopathy Recommendation of bilateral facet blocks medial branch block of the L4-L5 and L5-S1 Discontinue Mobic 3 days prior to procedure Risk benefits of the procedure discussed and patient verbalizes understanding All patient questions answered MAPS reviewed and it was appropriate. I have spent 31 minutes on patient care today. Dr Denton was available by phone for the evaluation of this patient. The time was used to review the medical records including relevant urine studies and Prescription history (MAPs), review of the available imaging, evaluation and examination of the patient, coordination of care with the medical staff and if applicable referring physicians, as well as creation of the medical record PQRS Measure Charge Sheet PQRS Narrative: Pain Intensity [Lower Back] 7 Scale Used Numeric (1 - 10) Hx Alcohol Use (MH) No Home Medications: Ambulatory Orders ALPRAZolam [Xanax] 0.25 mg PO BID PRN 08/02/20 Allopurinol [Zyloprim] 300 mg PO DAILY 08/02/20 Budesonide [Rhinocort Allergy] 1 spr EA NOSTRIL DAILY PRN 08/02/20 Calcium 600 With D3 1 tab PO DAILY 08/02/20 Cholecalciferol [Vitamin D3 (25 Mcg = 1000 Iu)] 4,000 unit PO DAILY 08/02/20 FLUoxetine HCL [PROzac] 60 mg PO DAILY 08/02/20 Famotidine [Pepcid] 20 mg PO DAILY 08/02/20 Ipratropium/Albuterol Updraft 1 dose PO DIRECTED 08/02/20 Loratadine [Claritin] 10 mg PO DAILY 08/02/20 Losartan/Hydrochlorothiazide [Losartan-Hctz 100-25 mg Tab] 1 tab PO DAILY 08/02/20 Multivitamins, Thera [Multivitamin (formulary)] 1 tab PO DAILY 08/02/20 Simvastatin [Zocor] 20 mg PO HS 08/02/20 Zafirlukast [Accolate] 20 mg PO BID 08/02/20 amLODIPine BESYLATE 10 mg PO DAILY 08/02/20 busPIRone HCL 10 mg PO BID 08/02/20 Meloxicam [Mobic] 15 mg PO DAILY 08/10/21 Omeprazole 20 mg PO DAILY 08/10/21
[2021-11-07 11:31] VITALS: BP 125/57; PULSE 89; RESP 18; TEMP 98.1
== END ==
LOC: PNWHC3 11:03
PROVIDERS: ATTEND Physician Assistant Medical
DX: G89.29 Other chronic pain (principal); M51.36 Other intervertebral disc degeneration, lumbar region; M47.816 Spondylosis without myelopathy or radiculopathy, lumbar region; Z88.2 Allergy status to sulfonamides; Z88.7 Allergy status to serum and vaccine
CPT/HCPCS: 99211

== ENCOUNTER 2021-12-16 08:13 | Day surgery (SDC) | payer MEDICARE, OTHER ==
[2021-12-15 10:14] VITALS: BMI 39.8
[~2021-12-16 08:13] MED LIST changes: -IOPAMIDOL M200 10 ML VIAL ONE; -IV FLUID CONTINUATION 600 ML IV ONE; -LACTATED RINGERS 1,000 ML IV ONE; +LACTATED RINGERS 1,000 ML IV SCH; -LIDOCAINE 1% (10MG/ML) FOR IV START INTRADERMA ONE; +LIDOCAINE 1% (10MG/ML) FOR IV START INTRADERMA PRN; -MIDAZOLAM 2 MG/2 ML VIAL ONE; -ROPIVACAINE 5MG/ML 20ML VIAL ONE; -fentaNYL (PF) 50 MCG/ML 2 ML AMP ONE
[2021-12-16 08:37] LABS: Glucose,Whole Blood 119 mg/dL (75-99)
[2021-12-16 08:39] VITALS: TEMP 98.1
[2021-12-16] MEDS ORDERED: fentaNYL (PF) 50 MCG/ML 2 ML AMP ONE (09:14)
[2021-12-16] MEDS ORDERED: ROPIVACAINE 5MG/ML 20ML VIAL ONE (09:14)
[2021-12-16] MEDS ORDERED: methylPREDNISolone ACETATE 40 MG/ML 1 ML VIAL ONE (09:14)
[2021-12-16] MEDS ORDERED: MIDAZOLAM 2 MG/2 ML VIAL ONE (09:14)
--- NOTE | 2021-12-16 09:38 | P.PCN ---
Date of Procedure: 12/16/21 Procedure(s) Performed: PREOPERATIVE DIAGNOSIS : 1- Lumbar spondylosis with Facet Arthropathy without myelopathy . 2- Lumber degenerative disc disease POSTOPERATIVE DIAGNOSIS: 1- Lumbar spondylosis with Facet Arthropathy without myelopathy . 2- Lumber degenerative disc disease PROCEDURE: Diagnostic bilateral L3 , L4 , and L5 medial branch block under fluoroscopy guidance(fluoroscopy images available in the radiology Department ) ( To target the facet joint between Bilateral L4-5 , and L5-S1 )# 2nd ANESTHESIA:, Monitored anesthesia care as per anesthesia department. EBL: Minimal COMPLICATION: None PROCEDURE INDICATION: Chronic low back pain secondary to Facet arthropathy unresponsive to conservative treatment. PROCEDURE DESCRIPTION: the patient was seen and identified in the preop holding area , risks and benefits and possible complications of the procedure and alternative were discussed with the patient, and the patient agreed to proceed with the procedure and signed the consent and vital signs monitored during the procedure and fluoroscopy was used to maximize the benefit and accuracy of the needle placement, and sedation was given to decrease patient anxiety, patient was taken to the procedure room and placed in prone position vital signs monitored in the back prepped with chlorhexidine X3 then under strict sterile technique using a right oblique fluoroscopy ,the junction of the transverse process and the superior articulating process of the right L3 , L4 , and L5 vertebra which corresponding to the fluoroscopy image of the eye of the Gianluca dog on the block side for the medial branches and subsequently , after local infiltration of skin and subcu tissuies with Ropivacaine 0.5 % , one mL at each level ,then 22-gauge 5 inches long Quincke-type needles , 3 needle was used , each one of them placed at the junction of the base of the transverse process and the superior articular process at the appropriate level, and the needle was advanced until the periosteum contacted, needle placement confirmed with AP oblique and lateral view and after appropriate needle placement confirmed, and after negative aspiration for heme and CSF and there was no paresthesia 1-1/2 mL of Ropivacaine 0.5% mixed with 20 mg Depo-Medrol , then half mL injected at each level after negative aspiration the needle subsequently removed and the same procedure repeated for the left side at left side at L3 , L4 and L5 levels. At the end of the procedure and the needles removed and a bandage applied after the skin was cleaned the cleaning solution patient taken to recovery room in stable condition and monitors in the recovery room for 20-30 minutes and discharged home in stable condition after discharge criteria met and patient will follow up with the pain clinic in 2-4 weeks
--- NOTE | 2021-12-16 09:49 | FL ---
Fluoroscopy History: LUMBAR PAIN 30 SEC FL
[2021-12-16 10:04] VITALS: RESP 16
[2021-12-16 10:15] VITALS: BP 100/66; PULSE 78
== END 2021-12-16 10:17 | disposition home or self-care (01) ==
LOC: ORPAIN 08:13
PROVIDERS: ATTEND Specialist
DX: G89.29 Other chronic pain (principal); M47.816 Spondylosis without myelopathy or radiculopathy, lumbar region; M51.36 Other intervertebral disc degeneration, lumbar region; I10 Essential (primary) hypertension; E78.5 Hyperlipidemia, unspecified; G47.33 Obstructive sleep apnea (adult) (pediatric); K21.9 Gastro-esophageal reflux disease without esophagitis; Z79.1 Long term (current) use of non-steroidal anti-inflammatories (NSAID); Z79.899 Other long term (current) drug therapy
CPT/HCPCS: 64493; 64494; J2250; J1030; J3010; J2795

== ENCOUNTER → 2022-01-02 | Outpatient (CLI) | payer MEDICARE, OTHER ==
--- NOTE | 2022-01-02 13:19 | P.PN ---
Subjective Progress Note Date: 01/02/22 Principal diagnosis: A 76 yr old female with a history of severe and chronic low back pain secondary to lumbar degenerative disc diseases and lumbar spondylosis with facet arthropathy presents today for evaluation of facet blocks of the medial branches L4-L5 and L5-S1 #2. Patient states she expresses 100% pain relief for 4 hours status post procedure. Pain level is currently at 1 out of 10 in intensity, sore, pressure, weak, heavy sensation in the lower aspects of her lumbar spine that radiates to the left hip occasionally. Pain is provoked by any form of activity that lasts 5 minutes or more. Pain is alleviated with medications, injections, heat, physical therapy 3 years ago, use of a cane for ambulation, use of a recliner and rest. Interventional pain procedures completed include BL facet blocks of the medial branches L4-L5, L5-S1 #2, BL RFA C3 to C5. Patient is currently on Mobic, Tylenol ES. Patient denies any side effects of the medication(s), denies excessive drowsiness or sleepiness, denies suicidal ideation and reports that the current pain medication is helping to control the pain and improve activities of daily living. Patient denies any motor or sensory deficits. Patient denies any fever or night sweats, denies any change in the bowel movements or urination. Physical Examination: -Constitutional: Cooperative. Not in acute distress . -HEENT: Neck is supple. No lymphadenopathy. No thyromegaly. Normal thyroid size. Eyes: No ptosis , no icterus, no photophobia. ENT: No auditory deficits. Normal oropharynx. No Thrush. - Respiratory: Chest clear to auscultations bilaterally. No wheezing. No rhonchi. - Cardiovascular: Regular rate and rhythm. S1 / S2 , no S3 , no S4. - Gastrointestinal: Abdomen soft no tenderness. Bowel sounds positive in all four quadrants. No organomegaly. - Genitourinary: Deferred. - Neurologic: Cranial nerve II to XII intact. No focal neurological deficits. - Psychatric: Alert & oriented x 3. Matching mood & appropriate affect. Judgment and insight intact. - Lymphatic: No Lymphadenopathy. - Musculoskeletal: Cervical spine: Muscle bulk/ tone/ strength in the bilateral upper extremities normal. Facet loading test cervical area positive. Lumbar spine: Motor bulk/ tone/ strength lower extremities , thigh and legs : 5/5 Deep tendon reflexes : Normal Knee Jerk. Normal Ankle Jerk . Vertebral body tenderness to palpation over Lumbar Facet Loading Test positive Straight Leg Raise: positive at 30 degrees right side/ left side Gaenslen's Test positive Sacral spine : Severe tenderness over the Sacroiliac joint: right side / left side Range of motion: Flexion of the lumbar spine <60 degrees Range of motion: Extension of the lumbar spine <20 degrees Gaenslen's Test positive Beny test: positive right side / left side Assessment and plan: Chronic low back pain secondary to lumbar degenerative disc disease , lumbar spondylosis with facet arthropathy without myelopathy Recommendation of BL RFA L4-L5, L5-S1. Pt states she experienced optimal but short lived pain relief with the series of nerve blocks. Risks, benefits of procedure discussed and pt acknowledged understanding. Denies anticoagulant use. Denies medical history of diabetes. All patient questions answered MAPS reviewed and it was appropriate. I have spent 31 minutes on patient care today. Dr Denton was available by phone for the evaluation of this patient. The time was used to review the medical records including relevant urine studies and Prescription history (MAPs), review of the available imaging, evaluation and examination of the patient, coordination of care with the medical staff and if applicable referring physicians, as well as creation of the medical record PQRS Measure Charge Sheet PQRS Narrative: Hx Alcohol Use (MH) No Home Medications: Ambulatory Orders ALPRAZolam [Xanax] 0.25 mg PO BID PRN 08/02/20 Allopurinol [Zyloprim] 300 mg PO DAILY 08/02/20 Budesonide [Rhinocort Allergy] 1 spr EA NOSTRIL DAILY PRN 08/02/20 Calcium 600 With D3 1 tab PO DAILY 08/02/20 Cholecalciferol [Vitamin D3 (25 Mcg = 1000 Iu)] 4,000 unit PO DAILY 08/02/20 FLUoxetine HCL [PROzac] 60 mg PO DAILY 08/02/20 Famotidine [Pepcid] 20 mg PO DAILY 08/02/20 Ipratropium/Albuterol Updraft 1 dose PO DIRECTED 08/02/20 Loratadine [Claritin] 10 mg PO DAILY 08/02/20 Losartan/Hydrochlorothiazide [Losartan-Hctz 100-25 mg Tab] 1 tab PO DAILY 08/02/20 Multivitamins, Thera [Multivitamin (formulary)] 1 tab PO DAILY 08/02/20 Simvastatin [Zocor] 20 mg PO HS 08/02/20 Zafirlukast [Accolate] 20 mg PO BID 08/02/20 amLODIPine BESYLATE 10 mg PO DAILY 08/02/20 busPIRone HCL 10 mg PO BID 08/02/20 Meloxicam [Mobic] 15 mg PO DAILY 08/10/21 Omeprazole 20 mg PO DAILY 08/10/21
[2022-01-02 14:56] VITALS: BP 124/71; PULSE 86; RESP 18; TEMP 98.3
== END ==
LOC: PNWHC3 12:54
PROVIDERS: ATTEND Specialist
DX: G89.29 Other chronic pain (principal); M51.36 Other intervertebral disc degeneration, lumbar region; M47.816 Spondylosis without myelopathy or radiculopathy, lumbar region; Z88.2 Allergy status to sulfonamides; Z88.7 Allergy status to serum and vaccine
CPT/HCPCS: 99211

== ENCOUNTER 2022-02-10 07:55 | Day surgery (SDC) | payer MEDICARE, OTHER ==
[2022-02-09 13:36] VITALS: BMI 41.3
[~2022-02-10 07:55] MED LIST changes: -LIDOCAINE 1% (10MG/ML) FOR IV START INTRADERMA PRN
[2022-02-10 08:10] VITALS: TEMP 97.4
[2022-02-10] MEDS ORDERED: LACTATED RINGERS 1,000 ML IV ONE (08:10)
[2022-02-10] MEDS ORDERED: ROPIVACAINE 5MG/ML 20ML VIAL ONE (09:00)
[2022-02-10] MEDS ORDERED: MIDAZOLAM 2 MG/2 ML VIAL ONE (09:00)
[2022-02-10] MEDS ORDERED: fentaNYL (PF) 50 MCG/ML 2 ML AMP ONE (09:00)
[2022-02-10] MEDS ORDERED: TRIAMCINOLONE ACETONIDE 40 MG/ML 1 ML VIAL ONE (09:00)
--- NOTE | 2022-02-10 09:34 | P.PCN ---
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 Procedure: Bilateral L4-5 radiofrequency thermocoagulation of medial branch under fluoroscopic guidance Bilateral L5-S1 dorsal ramus radiofrequency thermocoagulation under fluoroscopic guidance Surgeon: Marleny Leary Anesthesia: Local: 1% Lidocaine, IV sedation : Midazolam 2 mg, and fentanyl 50 + 50 micrograms. Complications: None Estimated blood loss: None. Specimen removed: None Fluoroscopic image: Saved to patient electronic medical records. Indications for Procedure: The patient is well known to pain clinic for his chronic low back pain management. The lumbar facet loading test was positive with a clinical diagnosis of lumbar facet arthropathy. Patient had marked decrease in pain after the diagnostic medial branch procedure. Came here for radiofrequency ablation for longer pain relief. PROCEDURE DESCRIPTION: The patient was seen and identified in the preoperative area. Risks, benefits, complications, and alternatives were discussed with the patient. The patient agreed to proceed with the procedure and signed the consent. IV was started. Vital signs were stable. Patient was taken to the procedure room and timeout was completed. The patient was placed in the prone position on procedure table and a pillow was placed under the abdomen to reduce lumbar lordosis. The lumbosacral area was prepped and draped in the usual sterile fashion. Critical pause was taken. Vital signs were closely monitored during the procedure. The fluoroscopic camera was placed in the anteroposterior position to identify the junction of superior articular process and its corresponding injection with its transverse process of Right side L4, L5, S1, which were anesthetized with 1% lidocaine. We used 20-gauge 100-mm curved, sharp radiofrequency cannula with 10-mm active tip for the procedure. The first cannula was guided by fluoroscopy to the S1 superior articular process and its corresponding junction with its ala. The second cannula was guided by fluoroscopy into the L5 superior articular process and its corresponding junction with its transverse process and pedicle. The third cannula was guided by fluoroscopy into the L4 SAP and its corresponding junction with its transverse process and its pedicle. After confirmation of needle tip position on oblique view, each site underwent motor testing at 2 Hz and 0 to 2.5 volts, and there was good motor stimulation in the back and no radicular symptoms or paresthesias. After confirmation of motor testing, 0.5 mL of block solution injected at each site . Block solution contained 4 mL of 0.5% ropivacaine preservative free mixed with 40 MG of Kenalog. At this time, each site was ablated using continuous radiofrequency mode at 80 degrees Celsius for 90 seconds at each level. At the end of the procedure, each needle was retracted approximately 1 cm and the skin was infiltrated with 0.5% ropivacaine preservative free 1 ml at each site. Skin was cleansed and bandages were applied. Entire procedure repeated on the left side. Skin was cleansed and bandages were applied. Disposition : The patient tolerated the procedure very well. The patient was transferred to the recovery room and remained stable until discharged home. The patient was given detailed discharge instructions for infection, bleeding, and increased pain at the injection site, and was advised to seek immediate medical attention should significant side effects develop. The patient will be scheduled with Pain Clinic within 4 weeks.
[2022-02-10] MEDS ORDERED: IV FLUID CONTINUATION 1,000 ML IV ONE (09:39)
--- NOTE | 2022-02-10 09:44 | FL ---
Fluoroscopy History: M47.817 LUMBAR SPONDYLOSIS Eddie lum RF. 14 sec fl. 8 images sent.
[2022-02-10 09:56] VITALS: BP 129/84; PULSE 83; RESP 18
== END 2022-02-10 10:09 | disposition home or self-care (01) ==
LOC: ORPAIN 07:55
DX: M47.817 Spondylosis without myelopathy or radiculopathy, lumbosacral region (principal); I10 Essential (primary) hypertension; M19.90 Unspecified osteoarthritis, unspecified site; F32.A Depression, unspecified; F41.9 Anxiety disorder, unspecified; E78.5 Hyperlipidemia, unspecified; G47.33 Obstructive sleep apnea (adult) (pediatric); K21.9 Gastro-esophageal reflux disease without esophagitis; Z79.899 Other long term (current) drug therapy; Z88.2 Allergy status to sulfonamides; Z96.653 Presence of artificial knee joint, bilateral; Z96.641 Presence of right artificial hip joint; Z98.890 Other specified postprocedural states
CPT/HCPCS: 64635; 64636; J2250; J3301; J3010; J2795

== ENCOUNTER → 2022-02-22 | Outpatient (CLI) | payer MEDICARE ==
[2022-02-22 12:58] VITALS: BP 126/78; PULSE 73; RESP 18; TEMP 98.3
--- NOTE | 2022-02-22 13:02 | P.PN ---
Subjective Progress Note Date: 02/22/22 Principal diagnosis: A 76 yr old female with a history of severe and chronic low back pain secondary to lumbar degenerative disc diseases and lumbar spondylosis with facet arthropathy and left hip OA presents today for evaluation status post bilateral RFA L3-L5. She states she experienced over 60% pain relief status post procedure. Pain level is 2 out of 10 in intensity, constant, dull, achy pain in the left hip region. Patient denies radiation of pain from her lumbar spine. Pain is provoked by walking for periods of 10 minutes or more, or bending. Patient uses a walker for ambulatory assistance. Pain is alleviated with medications, injections, heat, physical therapy but only of the lumbar spine, use of a walker for ambulation, sitting and laying supine. Interventional pain procedures completed include BL RFA L3-L5 Patient is currently on Tylenol OTC. Mobic daily. Patient denies any side effects of the medication(s), denies excessive drowsiness or sleepiness, denies suicidal ideation and reports that the current pain medication is helping to control the pain and improve activities of daily living. Patient denies any motor or sensory deficits. Patient denies any fever or night sweats, denies any change in the bowel movements or urination. Physical Examination: -Constitutional: Cooperative. Not in acute distress . -HEENT: Neck is supple. No lymphadenopathy. No thyromegaly. Normal thyroid size. Eyes: No ptosis , no icterus, no photophobia. ENT: No auditory deficits. Normal oropharynx. No Thrush. - Respiratory: Chest clear to auscultations bilaterally. No wheezing. No rhonchi. - Cardiovascular: Regular rate and rhythm. S1 / S2 , no S3 , no S4. - Gastrointestinal: Abdomen soft no tenderness. Bowel sounds positive in all four quadrants. No organomegaly. - Genitourinary: Deferred. - Neurologic: Cranial nerve II to XII intact. No focal neurological deficits. - Psychatric: Alert & oriented x 3. Matching mood & appropriate affect. Judgment and insight intact. - Lymphatic: No Lymphadenopathy. - Musculoskeletal: Cervical spine: Muscle bulk/ tone/ strength in the bilateral upper extremities normal. Vertebral body tenderness to palpation over Facet loading test cervical area positive. Lumbar spine: Motor bulk/ tone/ strength lower extremities , thigh and legs : 5/5 Deep tendon reflexes : Normal Knee Jerk. Normal Ankle Jerk . Vertebral body tenderness to palpation over Lumbar Facet Loading Test positive Straight Leg Raise: positive at 30 degrees right side/ left side Gaenslen's Test positive Sacral spine : Severe tenderness over the Sacroiliac joint: right side / left side Range of motion: Flexion of the lumbar spine <60 degrees Range of motion: Extension of the lumbar spine <20 degrees Gaenslen's Test positive Sohail's Test positive Beny test: positive right side / left side Pelvis: Pain elicited with abduction <45. Pain elicited with flexion <60. Imaging: X-ray of the L hip from 08/15/21 reviewed. Assessment and plan: Chronic low back pain secondary to lumbar degenerative disc disease , lumbar spondylosis with facet arthropathy without myelopathy, left hip OA Recommendation of left hip trochanteric injection. May need a series of injections, up to 3 within a six-month period, for optimal pain relief. Risks, benefits of procedure discussed and patient verbalized understanding. Denies anticoagulant use or medical history of diabetes. All patient questions answered MAPS reviewed and it was appropriate. I have spent 31 minutes on patient care today. Dr Denton was available by phone for the evaluation of this patient. The time was used to review the medical records including relevant urine studies and Prescription history (MAPs), review of the available imaging, evaluation and examination of the patient, coordination of care with the medical staff and if applicable referring physicians, as well as creation of the medical record PQRS Measure Charge Sheet Mode of Arrival: Ambulatory, Walker PQRS Narrative: Blood Pressure 126/78 Pain Intensity [Left Hip] 2 Scale Used Numeric (1 - 10) Hx Alcohol Use (MH) No Home Medications: Ambulatory Orders ALPRAZolam [Xanax] 0.25 mg PO BID PRN 08/02/20 Allopurinol [Zyloprim] 300 mg PO DAILY 08/02/20 Budesonide [Rhinocort Allergy] 1 spr EA NOSTRIL DAILY PRN 08/02/20 Calcium 600 With D3 1 tab PO DAILY 08/02/20 Cholecalciferol [Vitamin D3 (25 Mcg = 1000 Iu)] 4,000 unit PO DAILY 08/02/20 FLUoxetine HCL [PROzac] 60 mg PO DAILY 08/02/20 Famotidine [Pepcid] 20 mg PO DAILY 08/02/20 Loratadine [Claritin] 10 mg PO DAILY 08/02/20 Losartan/Hydrochlorothiazide [Losartan-Hctz 100-25 mg Tab] 1 tab PO DAILY 08/02/20 Multivitamins, Thera [Multivitamin (formulary)] 1 tab PO DAILY 08/02/20 Simvastatin [Zocor] 20 mg PO HS 08/02/20 Zafirlukast [Accolate] 20 mg PO BID 08/02/20 amLODIPine BESYLATE 10 mg PO DAILY 08/02/20 busPIRone HCL 10 mg PO BID 08/02/20 Meloxicam [Mobic] 15 mg PO DAILY 08/10/21 Ipratropium-Albuterol Nebulize [Duoneb 0.5 mg-3 mg/3 ml Soln] 3 ml INHALATION Q6H PRN 02/09/22 Levothyroxine(Unk Dose) 1 dose PO DAILY 02/09/22
== END ==
LOC: PNWHC3 12:24
PROVIDERS: ATTEND Specialist
DX: M51.36 Other intervertebral disc degeneration, lumbar region (principal); M47.816 Spondylosis without myelopathy or radiculopathy, lumbar region; G89.29 Other chronic pain; M16.12 Unilateral primary osteoarthritis, left hip; Z88.2 Allergy status to sulfonamides; Z88.8 Allergy status to other drugs, medicaments and biological substances
CPT/HCPCS: 99211

== ENCOUNTER 2022-04-06 09:35 | Day surgery (SDC) | payer MEDICARE ==
[~2022-04-06 09:35] MED LIST changes: +LIDOCAINE 1% (10MG/ML) FOR IV START INTRADERMA PRN
[2022-04-06 10:02] VITALS: RESP 16; TEMP 97.3
[2022-04-06] MEDS ORDERED: fentaNYL (PF) 50 MCG/ML 2 ML AMP ONE (10:25)
[2022-04-06] MEDS ORDERED: methylPREDNISolone ACETATE 40 MG/ML 1 ML VIAL ONE (10:25)
[2022-04-06] MEDS ORDERED: MIDAZOLAM 2 MG/2 ML VIAL ONE (10:25)
[2022-04-06] MEDS ORDERED: ROPIVACAINE 5MG/ML 20ML VIAL ONE (10:25)
--- NOTE | 2022-04-06 10:35 | P.PCN ---
Date of Procedure: 04/06/22 Procedure(s) Performed: Pre- and Post-operative Diagnosis: left -sided Trochanteric Bursitis Procedure: left Greater Trochanteric Bursa injection under fluoroscopic guidance Anesthesia: Moderate sedation with Versed 1 mg and fentanyl 50 g Complications: none Indications for Procedure: Patient had a history of greater trochanteric bursitis. Tried conservative therapy with minimal response. Came here for intervention procedure. Procedure and Findings: The patient was seen and examined. The written informed consent was obtained after explaining the risks, benefits and alternatives of the procedure to the patient. Patient agreed to proceed for the procedure signed the informed consent. The patient was brought to the procedure room and was placed in prone position on the operating table. The anesthesia was started as mentioned above and monitoring was done with noninvasive blood pressure cuff, EKG and pulse oximetry. The skin preparation was done with ChloraPrep 1, and draping was done in usual sterile fashion. Sterile technique was observed throughout the procedure. Using fluoroscope in the AP view, the greater trochanter was identified. The middle of the greater trochanter was targeted for needle placement. 3 ml of 0.5% ropivacaine was injected with a 25 gauge needle to achieve adequate local anesthesia of the skin and subcutaneous tissue. then 22 gauge 5 inch needle was introduced and advanced into the target area under direct fluoroscopic guidance. A bony contact was felt and the needle was withdrawn for about two millimeters. A negative aspiration was confirmed. then total of 7ml solution containing depo-medrol 40 mg and 6 ml of 0.5% preservative-free ropivacaine was injected slowly. The needle was removed intact, area was cleaned and bandage was applied. The patient tolerated the procedure very well. Additional comments: None Disposition : The patient was transferred to the recovery room and remained stable until discharged home. The patient was given detailed discharge instructions for infection, bleeding, increased pain at the injection site, and was advised to seek immediate medical attention should significant side effects develop. Patient was routinely examined by RN before discharging home. The patient will be followed up with Pain Clinic within 3 weeks.
[2022-04-06] MEDS ORDERED: IV FLUID CONTINUATION 1,000 ML IV ONE (10:39)
--- NOTE | 2022-04-06 10:45 | FL ---
Fluoroscopy History: Bursa Inj FL BURSA INJ. 1SEC. FL TIME. 1 IMAGE SENT TO PACS.
[2022-04-06 11:13] VITALS: BP 114/75; PULSE 75
== END 2022-04-06 11:19 | disposition home or self-care (01) ==
LOC: ORPAIN 09:35
PROVIDERS: ATTEND Specialist
DX: M70.62 Trochanteric bursitis, left hip (principal); Y93.9 Activity, unspecified
CPT/HCPCS: 20610; J2250; J1030; J3010; J2795

== ENCOUNTER → 2022-04-19 | Outpatient (CLI) | payer MEDICARE ==
[2022-04-19 11:48] VITALS: BP 104/64; PULSE 104; RESP 18; TEMP 98
--- NOTE | 2022-04-19 11:49 | P.PAINPG ---
PQRS Measure Charge Sheet Comment: A 76 yr old female with a history of severe and chronic low back pain secondary to lumbar degenerative disc diseases and lumbar spondylosis with facet arthropathy presents today for evaluation status post L trochanteric injection. Pt states she experienced 0% pain relief s/p procedure. Pain level is currently at 8/10 in intensity, intermittent sharp pain from the back of the L hip towards the L knee. Pain is provoked by overactivity. Pain is alleviated with medications, injections, heat, use of a walker for ambulation, repositioning and rest. Interventional pain procedures completed include L Trochanteric injection, BL RFA L3-L5. Patient is currently on Aleve OTC Patient denies any side effects of the medication(s), denies excessive drowsiness or sleepiness, denies suicidal ideation and reports that the current pain medication is helping to control the pain and improve activities of daily living. Patient denies any motor or sensory deficits. Patient denies any fever or night sweats, denies any change in the bowel movements or urination. Physical Examination: -Constitutional: Cooperative. Not in acute distress . - Neurologic: Cranial nerve II to XII intact. No focal neurological deficits. - Psychatric: Alert & oriented x 3. Matching mood & appropriate affect. Judgment and insight intact. - Musculoskeletal: Cervical spine: Muscle bulk/ tone/ strength in the bilateral upper extremities normal Vertebral body tenderness to palpation over Spurling test positive Distraction test positive Facet loading test positive Thoracic spine Muscle bulk / tone/ strength in the bilateral paraspinal muscles normal Vertebral body tender to palpation over Facet loading test positive Lumbar spine: Motor bulk/ tone/ strength lower extremities , thigh and legs : 5/5 Deep tendon reflexes : Normal Knee Jerk. Normal Ankle Jerk . Vertebral body tenderness to palpation over Lumbar Facet Loading Test positive Straight Leg Raise: positive at 30 degrees right side/ left side Gaenslen's Test positive Sacral spine : +L acetabulofemoral TTP Severe tenderness over the Sacroiliac joint: right side / left side Range of motion: Flexion of the lumbar spine <60 degrees Range of motion: Extension of the lumbar spine <20 degrees Gaenslen's Test positive Sohail's Test positive Beny test: positive right side / left side Thigh Thrust Test Sacral Thrust Test Assessment and plan: Chronic low back pain secondary to lumbar degenerative disc disease , lumbar spondylosis with facet arthropathy without myelopathy Did not receive sufficient or satisfactory pain relief with procedure(s). Pt has severe OA of the L hip with L hip total arthroplasty in consideration at [facility]. Pt will follow up with OA for additional treatment options and take Lavelle prn in addition to OTC Aleve with food & water for intermittent pain relief. Risks, benefits of procedure discussed and pt verbalized understanding. Denies anticoagulant use or medical history of diabetes. Chronic and current use of high-risk medication (Opioids). The patient was counseled about risk of opioid use, psychological risk associated with opioids and was orally counseled to not overuse , divert or sell medications. Pt is to store medication in a safe location. The patient is counseled against driving while using narcotic medications and also not to use alcohol or any illicit recreational drugs. Patient verbalized understanding that the lack of compliance will result in failure to renew narcotic prescription(s) as well as possible discharge from the clinic Diagnoses, prognosis and treatment options including but not limited to physical therapy, surgical interventions, interventional therapies and medication management including narcotics and adjuvant medication were discussed. All patient questions answered MAPS reviewed and it was appropriate. Prescription for Lavelle 5/325mg #18 NR. Use, side effects and adverse reactions discussed and pt acknowledged understanding. I have spent less than 30 minutes on patient care today. Dr Denton was available by phone for the evaluation of this patient. The time was used to review the medical records including relevant urine studies and Prescription history (MAPs), review of the available imaging, evaluation and examination of the patient, coordination of care with the medical staff and if applicable referring physicians, as well as creation of the medical record PQRS Narrative: Hx Alcohol Use (MH) No Home Medications: Ambulatory Orders ALPRAZolam [Xanax] 0.25 mg PO BID PRN 08/02/20 Budesonide [Rhinocort Allergy] 1 spr EA NOSTRIL DAILY PRN 08/02/20 Calcium 600 With D3 1 tab PO DAILY 08/02/20 Cholecalciferol [Vitamin D3 (25 Mcg = 1000 Iu)] 4,000 unit PO DAILY 08/02/20 FLUoxetine HCL [PROzac] 60 mg PO DAILY 08/02/20 Famotidine [Pepcid] 20 mg PO DAILY 08/02/20 Loratadine [Claritin] 10 mg PO DAILY 08/02/20 Losartan/Hydrochlorothiazide [Losartan-Hctz 100-25 mg Tab] 1 tab PO DAILY 08/02/20 Multivitamins, Thera [Multivitamin (formulary)] 1 tab PO DAILY 08/02/20 Simvastatin [Zocor] 20 mg PO HS 08/02/20 Zafirlukast [Accolate] 20 mg PO BID 08/02/20 allopurinoL [Zyloprim] 300 mg PO DAILY 08/02/20 amLODIPine BESYLATE 10 mg PO DAILY 08/02/20 busPIRone HCL 10 mg PO BID 08/02/20 Ipratropium-Albuterol Nebulize [Duoneb 0.5 mg-3 mg/3 ml Soln] 3 ml INHALATION Q6H PRN 02/09/22 Levothyroxine Sodium [Synthroid] 50 mcg PO DAILY 02/09/22 Naproxen Sodium [Aleve] 220 mg PO BID 04/04/22 HYDROcodone/APAP 5-325MG [Lavelle 5-325] 1 tab PO Q4HR PRN 3 Days #18 tab 04/19/22 Controlled Substance Measures - Controlled Substance Measures Is patient prescribed a controlled substance at discharge?: Yes When asked, does pt state using other controlled substances?: No If Rx opioid, was Start Talking consent form obtained?: Yes If opioid is for acute pain is fill amount 7 days or less?: Yes Was information provided regarding opioid addiction?: Yes
== END ==
LOC: PNWHC3 11:14
PROVIDERS: ATTEND Specialist
DX: M51.36 Other intervertebral disc degeneration, lumbar region (principal); M47.816 Spondylosis without myelopathy or radiculopathy, lumbar region; G89.29 Other chronic pain; Z88.2 Allergy status to sulfonamides; Z88.7 Allergy status to serum and vaccine; Z79.891 Long term (current) use of opiate analgesic
CPT/HCPCS: 99211

== ENCOUNTER → 2022-05-12 | Outpatient (CLI) | payer MEDICARE ==
[2022-05-12 16:09] LABS: INR 0.9 (<1.2); Partial Thromboplastin Time 22.1 sec (22.0-30.0); Prothrombin Time 9.7 sec (9.0-12.0)
[2022-05-12 22:25] LABS: HCT 40.6 % (37.2-46.3); HGB 13.1 g/dL (12.0-15.0); MCH 31.3 pg (27.0-32.0); MCHC 32.3 g/dL (32.0-37.0); MCV 96.9 fL (80.0-97.0); Mean Platelet Volume 11.7 fL (9.5-12.2); NRBC Per 100 WBC 0 /100 WBCS (0.0-0.0); Platelet Count 313 X 10*3/uL (140-440); RBC 4.19 X 10*6/uL (4.10-5.20); RDW 13.2 % (11.5-14.5); WBC 6.98 X 10*3/uL (4.50-10.00)
[2022-05-12 22:32] LABS: African American GFR (CKD) 42.2 (60.0-200.0); Albumin 4.2 g/dL (3.8-4.9); Albumin/Globulin Ratio 1.68 (1.60-3.17); Anion Gap 9.4 mmol/L (10.00-18.00); Blood Urea Nitrogen 32.2 mg/dL (9.0-27.0); Carbon Dioxide 25.6 mmol/L (20.0-27.5); Globulin 2.5 g/dL (1.6-3.3); Non-African American GFR(CKD) 36.4 (60.0-200.0); Potassium 4.3 mmol/L (3.5-5.5); Total Bilirubin 0.3 mg/dL (0.30-1.20); Total Protein 6.7 g/dL (6.2-8.2)
== END | disposition home or self-care (01) ==
LOC: LABPAT 14:29
PROVIDERS: ATTEND Orthopaedic Surgery
DX: Z01.818 Encounter for other preprocedural examination (principal); M16.12 Unilateral primary osteoarthritis, left hip
CPT/HCPCS: 80053; 85027; 85610; 85730; 93005

== ENCOUNTER 2022-05-19 05:53 | Day surgery (SDC) | payer MEDICARE ==
[2022-05-12 11:48] VITALS: BMI 38.9
[~2022-05-19 05:53] MED LIST changes: -LACTATED RINGERS 1,000 ML IV SCH; -LIDOCAINE 1% (10MG/ML) FOR IV START INTRADERMA PRN; +ROPIVACAINE/EPI/CLONIDINE/KET 50 ML SYRINGE MISCELLANE PRN
[2022-05-19] MEDS ORDERED: DEXAMETHASONE SOD PHOSPHATE 10 MG/ML 1 ML VIAL IV PRN (06:00)
[2022-05-19] MEDS ORDERED: oxyCODONE ER 10 MG TAB.ER.12H PO PRN (06:00)
[2022-05-19] MEDS ORDERED: KETOROLAC 15 MG/ML 1 ML VIAL IVP PRN (06:00)
[2022-05-19] MEDS ORDERED: ACETAMINOPHEN TAB 500 MG TAB PO PRN (06:00)
[2022-05-19] MEDS ORDERED: FAMOTIDINE 20 MG/2 ML VIAL IVP PRN (06:00)
[2022-05-19] MEDS ORDERED: DOCUSATE 100 MG CAP PO PRN (06:00)
[2022-05-19] MEDS ORDERED: ONDANSETRON 4 MG/2 ML VIAL IVP PRN (06:00)
[2022-05-19] MEDS ORDERED: TRANEXAMIC ACID IN NACL,ISO-OS 1,000 MG in SALINE 1 100ML.BAG IVPB PRN (06:00)
[2022-05-19] MEDS ORDERED: DEXAMETHASONE SOD PHOSPHATE 4 MG/ML 1 ML VIAL IV ONE (06:02)
[2022-05-19] MEDS ORDERED: LIDOCAINE 1% (10MG/ML) FOR IV START INTRADERMA PRN (06:02)
[2022-05-19] MEDS ORDERED: ONDANSETRON 4 MG/2 ML VIAL IVP ONE (06:02)
[2022-05-19] MEDS ORDERED: MIDAZOLAM 2 MG/2 ML VIAL IV PRN (06:02)
[2022-05-19] MEDS: LACTATED RINGERS 1,000 ML IV SCH ×3 (06:47→23:12)
[2022-05-19] MEDS ORDERED: MIDAZOLAM 2 MG/2 ML VIAL IVP ONE (07:21)
[2022-05-19] MEDS ORDERED: HYDROmorphone (PF) 1 MG/ML ONE (07:32)
[2022-05-19] MEDS ORDERED: fentaNYL (PF) 50 MCG/ML 2 ML AMP ONE (07:32)
[2022-05-19] MEDS ORDERED: PROPOFOL 10 MG/ML 20 ML VIAL IV ONE (07:32)
[2022-05-19] MEDS ORDERED: GLYCOPYRROLATE 0.2 MG/ML 2 ML VIAL ONE (07:32)
[2022-05-19] MEDS ORDERED: NEOSTIGMINE 1 MG/ML 10 ML VIAL ONE (07:32)
[2022-05-19] MEDS ORDERED: ROCURONIUM 10 MG/ML (5 ML VIAL) IV ONE (07:32)
[2022-05-19] MEDS ORDERED: SUCCINYLCHOLINE CHLORIDE 200 MG/10 ML VIAL IV ONE (07:32)
[2022-05-19] MEDS ORDERED: LIDOCAINE 2% INJ 20 MG/ML (2 ML VIAL) ONE (07:32)
[2022-05-19] MEDS ORDERED: PHENYLEPHRINE-0.9% NACL SYG 1,000 MCG/10 ML SYRINGE ONE (07:32)
[2022-05-19] MEDS ORDERED: ceFAZolin 3,000 MG in SODIUM CHLORIDE 0.9% IRRIGATIO 3,000 ML IRRIGATION ONE (08:33)
[2022-05-19] MEDS ORDERED: LACTATED RINGERS 1,000 ML IV ONE (10:02)
--- NOTE | 2022-05-19 10:15 | XR ---
EXAMINATION TYPE: XR Hip Limited LT DATE OF EXAM: 05/19/2022 CLINICAL HISTORY: Postoperative evaluation TECHNIQUE: Single portable view of the left hip was submitted. FINDINGS: Noted are changes of total hip arthroplasty with femoral and acetabular components appearin g well seated. Alignment is anatomic. Postsurgical soft tissue changes are evident. IMPRESSION: Satisfactory postoperative alignment
[2022-05-19] MEDS ORDERED: NALOXONE 0.4 MG/ML 1 ML VIAL IV PRN (10:26)
[2022-05-19] MEDS ORDERED: hydrOXYzine pamoate 25 MG CAP PO PRN (10:26)
[2022-05-19] MEDS ORDERED: HYDROmorphone 0.5 MG/0.5 ML SYRINGE IVP PRN ×3 (10:26)
[2022-05-19] MEDS ORDERED: HYDROcodone/APAP 5-325MG 1 EACH TAB PO PRN (10:26)
--- NOTE | 2022-05-19 10:28 | P.OP ---
Date of Procedure: 05/19/22 Preoperative Diagnosis: 1. Severe left hip osteoarthritis 2. BMI 39.1 3. Asthma 4. Preoperative creatinine 1.4 Postoperative Diagnosis: Same Procedure(s) Performed: Left direct anterior total hip arthroplasty Implants: 1. Newell Trident II Acetabular Cup, Size #52 2. Kerrie Accolade C Size #5 Femoral Stem, Standard Offset 3. Dual Mobility OD 42-mm, Biolox delta ceramic ID 28-mm, -4 neck Anesthesia: GETA Surgeon: Chip Pham Single Needle Tufting Machine Operator #1: Layton Vera Estimated Blood Loss (ml): 300 IV fluids (ml): 1,200 Pathology: none sent Condition: stable Disposition: PACU Indications for Procedure: I had a long discussion with the patient in the office on the potential risks and complications of an elective total hip replacement through a direct anterior approach. Risks discussed include, but are certainly not limited to, risks from anesthesia, superficial infection requiring local wound care or antibiotics, deep trev-prosthetic joint infection and the treatment required to eradicate infection, intraoperative fracture, postoperative periprosthetic fracture, damage to local blood vessels or nerves particularly the lateral femoral cutaneous nerve, delayed wound healing requiring local wound care or possibly surgical debridement, hip dislocation, leg length discrepancy, soft tissue irritation around the total hip implant such as iliopsoas tendinitis or trochanteric bursitis, wear and osteolysis from the implants, squeaking or audible noises, groin pain, thigh pain, heterotopic ossification, stiffness, aseptic loosening of the implants, dissatisfaction with surgical outcome, need for revision surgery, DVT, PE, swelling of the operative extremity, acute coronary event, stroke, failure to thrive, and possibly loss of life or limb. The patient understands that while these are the most common complications after an elective hip replacement there are certainly other less common complications possible. They were given ample time to ask questions regarding the potential complications of a hip replacement. Following our discussion the patient provided their verbal and written consent to go forward with an elective total hip replacement. Description of Procedure: The patient was identified in the preoperative holding area and the correct hip was marked with my initials. I reviewed the procedure and consent with the patient. All of their questions were answered. The patient was then brought back into the operating room by anesthesia. While on the [facility] anesthesia was administered by the anesthesia team. Preoperative antibiotics and tranexamic acid were also given. After the patient was under anesthesia I examined their ankles to determine their preoperative leg length discrepancy. The skin over the anterior aspect of the hip was shaved to remove hair over the site of planned incision. Both feet and ankles were padded with webril and boots for the [place] were applied. The patient was then carefully transferred onto the [place] table. A perineal post was immediately placed. The arms were placed on arm holders and were well-padded. Both boots were secured to the spars on the [place] table. The patient was positioned so that the pelvis was centered over the post. Nonsterile drapes were applied. A timeout was performed identifying the correct patient, operative extremity, and procedure. At this point fluoroscopy was brought in to take preoperative images of the pelvis and operative hip. Using the standing AP pelvis from the office as a template, a comparable image was obtained with fluoroscopy. A metallic bar was used to create a bi-ischial line for use as a reference to leg length adjustments during the procedure. Global offset was also measured on both the operative and nonoperative leg. Fluoroscopy was then brought out and a pre-scrub using a chlorhexidine scrub brush was performed. The operative limb was then prepped and draped in the standard sterile fashion. An anterior longitudinal incision was made lateral and distal to the ASIS. The skin and subcutaneous tissues were incised sharply. The underlying tensor fascia was identified and incised in its midportion. The fascia was dissected free from the underlying muscle and the muscle belly was retracted. A blunt tipped cobra retractor was placed over the superior neck under the muscle fibers of the gluteus minimus. The deep enveloping fascia of the tensor was incised. The anterior leash of vessels were then identified and cauterized. The fascia between the rectus and the capsule was then incised and the pre-capsular fat was excised. A second Cobra was placed inferior to the neck. The interval between the rectus and iliocapsularis and the hip capsule was developed and a retractor was placed carefully over the anterior rim of the acetabulum. A T-shaped anterior capsulotomy was performed. The superior capsular leaflet was left in place in the inferior capsular flap was excised. The Cobra retractors were placed intracapsularly. We then made a femoral neck osteotomy according to preoperative and intraoperative templating and confirmed the level of the osteotomy using fluoroscopic imaging. The femoral head was removed, passed off to the back table, and sized. The superior capsular flap was excised. Retractors were placed circumferentially exposing the acetabulum. We then circumferentially debrided the acetabulum free of labrum and osteophytes. The pulvinar was removed to fully visualize the cotyloid fossa. We then sequentially reamed to achieve peripheral fit and excellent bleeding subchondral bone. The socket was thoroughly irrigated. The acetabular component was impacted into the appropriate position using fluoroscopy to guide version, inclination, and depth of insertion taking care to have a comparable image of the AP pelvis to the standing image taken in the office. An excellent press-fit was achieved and final position was confirmed using fluoroscopy. The press fit was augmented with bony cancellus dome screws. The liner was then impacted into the socket. Attention was then turned to the femur. The remnant dorsal lateral capsule was excised. The short external rotators were visible and protected. A bone hook was used to confirm appropriate translation of the trochanter away from the acetabulum. The leg was then extended and adducted and the bone hook was used to elevate the femur for broaching. On inspection of the patient's proximal femur, they appeared to have poor bone quality so I elected to proceed with cemented fixation of the femoral component. A box osteotome and blunt tipped canal sound was then utilized to gain access to the femoral canal. We then sequentially broached the femur in appropriate anteversion until torsional stability was achieved and the implant was felt to have reached the appropriate size to allow trialing. The neck cut was brought flush to the trial broach with a calcar planar. A trial neck and head were then placed onto the broach and the hip was atraumatically reduced under direct visualization. External rotation to 90 was performed to assess stability. Fluoroscopy was brought in. An AP and lateral fluoroscopic image of the proximal femur was obtained to assess position and fill of the trial broach. An AP of the pelvis was then obtained and matched to the preoperative image taken. A bi-ischial bar was then placed and measurements were taken to assess changes in length and offset. The hip was then carefully dislocated, the proximal femur was exposed, and the trial implants were removed. The proximal femur was then prepared for cementing. The canal was thoroughly irrigated with pulsatile lavage to remove blood and marrow contents. A cement restrictor was placed to a depth just distal to the tip of the final implant. Epinephrine-soaked gauze was then packed into the proximal femur. 2 bags of cement were then mixed using a centrifuge and placed into a cement gun. Anesthesia was notified that cementing was about to commence to make sure the patient was appropriately ventilated and hydrated. Once the cement had reached appropriate consistency, the cement gun was used to fill the canal in a retrograde fashion starting at the restrictor. Cement was then pressurized into the canal with a blue tipped agriculture instructor. The stem was then carefully introduced into the cement taking care to guide the implant into appropriate version. The stem was held in position until the cement had fully set. All extra cement was removed while the cement was hardening. The trunnion was cleansed and the final head was tapped into place to engage the Campbell taper. The acetabulum was irrigated and visualized to be free of debris. The hip was carefully reduced. Stability was checked clinically with external rotation to 90 and there was no evidence of instability. Final fluoroscopic images were taken. The wound was then thoroughly irrigated and soaked with a dilute Betadine rinse for 3 minutes. 3 L of sterile saline was irrigated through the wound using pulsatile lavage. Local anesthetic cocktail was injected into the soft tissues around the surgical field. A deep drain was placed. The wound was then closed in layers. A sterile dressing was placed over the surgical incision and drain site. The drapes were taken down and the patient was carefully transferred off of the [place] table. Following removal of the boots the leg lengths felt acceptable. The patient was then taken to recovery room having tolerated the procedure well. Layton Vera PA-C was required as a skilled commissary assistant for patient positioning, surgical exposure, retraction, placement of implants, and closure of the surgical wound. PLAN: The patient can weight-bear as tolerated on the operative extremity. 2 doses of postoperative antibiotics. DVT prophylaxis with aspirin 81 mg twice a day based on preoperative risk stratification. Physical therapy for gait training. Discontinue drain postoperative day #1 if output is less than 100 mL per shift.
[2022-05-19] MEDS: HYDROmorphone 0.5 MG/0.5 ML SYRINGE IVP PRN ×3 (10:50→11:26)
[2022-05-19] MEDS ORDERED: FLUTICASONE 50MCG/SPRAY NASAL 16GM EA NOSTRIL PRN (15:22)
[2022-05-19] MEDS ORDERED: IPRATROPIUM-ALBUTEROL 3 ML NEB INHALATION PRN (15:22)
--- NOTE | 2022-05-19 15:25 | P.CONS ---
History of Present Illness - Reason for Consult Consult date: 05/19/22 Asthma Requesting physician: Chip Pham - Chief Complaint hip pain - History of Present Illness Patient is a 76-year-old female with past medical history of asthma, obesity with BMI 39.1, and osteoarthritis who presented for elective left direct anterior total hip arthroplasty. She has been slightly hypotensive on arrival to the floor after surgery. Patient seen and examined at bedside. She is still feeling a little loopy and groogy. She denies light headedness/dizziness. No chest pain, no shortness of breath. No recent cough, cold, fevers, flu. She has fully recovered from her recent gallbladder surgery. She states that her hip was getting worse and worse at home, so she had no choice but surgery. Pertinent positives and negatives as discussed in HPI, a complete review of systems was performed and all other systems are negative. Vital signs reviewed General: nontoxic, no distress, appears at stated age Derm: warm, dry Head: atraumatic, normocephalic, symmetric Eyes: EOMI, no lid lag, anicteric sclera, pupils equal round reactive to light ENT: Nose and ears atraumatic, no thrush, no pharyngeal erythema Neck: No thyromegaly, no cervical lymphadenopathy, trachea midline, supple Mouth: no lip lesion, mucus membranes moist Cardiovascular: S1S2 reg, no murmur, positive posterior tibial pulse bilateral, no edema, capillary refill less than 2 seconds Lungs: clear to auscultation bilateral, no rhonchi, no rales, no wheeze, no accessory muscle use Abdominal: soft, nontender to palpation, no guarding, no appreciable organomegaly, normal bowel sounds Ext: no gross muscle atrophy, muscle strength 5 out of 5 in upper 4 extremities, no contractures Neuro: CN II-XII grossly intact, light touch intact all 4 extremities, finger to nose within normal limits, Psych: awake, oriented, Jovial affect Assessment/Plan: 76 yo CF here for elective total hip arthroplatsy - management per ortho HTN - hypotnesive after surgery -- check stat CBC and BMP in AM - hold lisinopril/hctz, amlodipine - follow BP closely GERD - H2 marce HLD - statin Asthma - prn bronchdilators Obesity with BMI 39.1 - outpatient follow-up Thank you for allowing us to participate in the care of this pleasant patient. Do not hesitate to contact us with questions. Someone can be reached from the [facility] hospitalist group all hours of the day at [phone] or via [employer] Past Medical History Past Medical History: Asthma, GERD/Reflux, Hypertension, Sleep Apnea/CPAP/BIPAP Additional Past Medical History / Comment(s): Sleep Apnea (no machine), hx of septicemia, neck, back and shoulder pain, uses cane and rolling walker prn, just had gallbladder removed 2 weeks ago History of Any Multi-Drug Resistant Organisms: None Reported Past Surgical History: Adenoidectomy, Bariatric Surgery, Cholecystectomy, Hernia Repair, Joint Replacement, Tonsillectomy Additional Past Surgical History / Comment(s): GASTRIC SLEEVE (2010- DR MENDEZ), CARPAL TUNNEL MARILYN, CATARACTS, INGUINAL HERNIA, MARILYN TOTAL KNEES, RIGHT TOTAL HIP, injections in back for spinal stenosis and cervical injections., pain clinic procedures. recent lap kaylan mid March 2022 @[facility] Past Anesthesia/Blood Transfusion Reactions: No Reported Reaction, Motion Sickness Past Psychological History: Anxiety, Depression Smoking Status: Never smoker Past Alcohol Use History: None Reported Past Drug Use History: None Reported Additional History: uses a cane and a walker at home. - Past Family History Mother Additional Family Medical History / Comment(s): heart disease Father Additional Family Medical History / Comment(s): heart disease Medications and Allergies Home Medications Medication Instructions Recorded Confirmed Type ALPRAZolam [Xanax] 0.25 mg PO BID PRN 08/02/20 05/19/22 History Budesonide [Rhinocort Allergy] 1 spr EA NOSTRIL DAILY PRN 08/02/20 05/19/22 History Calcium 600 With D3 1 tab PO DAILY 08/02/20 05/12/22 History Cholecalciferol [Vitamin D3 (25 4,000 unit PO DAILY 08/02/20 05/12/22 History Mcg = 1000 Iu)] FLUoxetine HCL [PROzac] 60 mg PO QAM 08/02/20 05/19/22 History Famotidine [Pepcid] 20 mg PO QAM 08/02/20 05/19/22 History Loratadine [Claritin] 10 mg PO DAILY 08/02/20 05/19/22 History Losartan/Hydrochlorothiazide 1 tab PO QAM 08/02/20 05/19/22 History [Losartan-Hctz 100-25 mg Tab] Multivitamins, Thera [Multivitamin 1 tab PO DAILY 08/02/20 05/12/22 History (formulary)] Simvastatin [Zocor] 20 mg PO HS 08/02/20 05/19/22 History Zafirlukast [Accolate] 20 mg PO BID 08/02/20 05/19/22 History allopurinoL [Zyloprim] 300 mg PO DAILY 08/02/20 05/19/22 History amLODIPine BESYLATE 10 mg PO QAM 08/02/20 05/19/22 History busPIRone HCL 10 mg PO BID 08/02/20 05/19/22 History Ipratropium-Albuterol Nebulize 3 ml INHALATION Q6H PRN 02/09/22 05/19/22 History [Duoneb 0.5 mg-3 mg/3 ml Soln] Levothyroxine Sodium [Synthroid] 50 mcg PO QAM 02/09/22 05/19/22 History HYDROcodone/APAP 5-325MG [[place] 1 tab PO Q4HR PRN 3 Days #18 tab 04/19/22 05/19/22 Rx 5-325] Allergies Allergy/AdvReac Type Severity Reaction Status Date / Time sulfamethoxazole AdvReac Unknown STOMACH Verified 05/19/22 06:30 [From Bactrim] PAIN trimethoprim [From Bactrim] AdvReac Unknown STOMACH Verified 05/19/22 06:30 PAIN HORSE SERUM TETANAS Allergy Severe Anaphylaxis Uncoded 05/19/22 06:30 Novacaine Allergy Swelling Uncoded 05/19/22 06:30 Physical Exam Osteopathic Statement: *. No significant issues noted on an osteopathic structural exam other than those noted in the History and Physical/Consult. Vitals: Vital Signs Temp Pulse Pulse Resp BP BP Pulse Ox 05/19/22 14:41 98.2 F 86 17 91/55 94 L 05/19/22 14:40 98.1 F 83 17 69/52 93 L 05/19/22 14:39 98.2 F 88 17 93/58 93 L 05/19/22 14:38 98.2 F 78 17 76/49 94 L 05/19/22 14:37 98.2 F 93 17 77/51 94 L 05/19/22 14:36 98.2 F 95 18 81/52 89 L 05/19/22 14:35 98.3 F 85 17 77/51 90 L 05/19/22 14:34 98.5 F 86 17 89/60 93 L 05/19/22 14:00 97.5 F L 88 17 94/58 92 L 05/19/22 12:20 97.8 F 86 17 91/55 94 L 05/19/22 11:55 86 16 105/57 96 05/19/22 11:40 86 15 105/55 95 05/19/22 11:25 86 18 106/52 99 05/19/22 11:10 84 16 106/55 99 05/19/22 10:55 75 16 106/53 98 05/19/22 10:40 78 16 104/57 98 05/19/22 10:25 97.5 F L 84 12 101/57 97 05/19/22 07:07 97.2 F L 94 16 120/69 98 Intake and Output 05/19/22 05/19/22 05/19/22 06:59 14:59 22:59 Intake Total 1351 Output Total 215 Balance 1136 Intake: IV 1351 Output: Estimated Blood Loss 215 Other: Weight 100.2 kg
[2022-05-19 15:53] LABS: HCT 37.8 % (34.0-46.0); HGB 11.9 gm/dL (11.4-16.0); MCH 31.2 pg (25.0-35.0); MCHC 31.4 g/dL (31.0-37.0); MCV 99.4 fL (80.0-100.0); Mean Platelet Volume 8.4; Platelet Count 278 k/uL (150-450); RDW 12.8 % (11.5-15.5); WBC 17.2 k/uL (3.8-10.6)
--- NOTE | 2022-05-19 17:14 | FL ---
EXAMINATION TYPE: FL guidance operating room DATE OF EXAM: 05/19/2022 FLUOROSCOPY Fluoroscopy time of 43 seconds was used during left total hip arthroplasty. 10 image/s document/s th e procedure.
[2022-05-19] MEDS ORDERED: ATORVASTATIN 10 MG TAB PO SCH (21:00)
[2022-05-19] MEDS ORDERED: SENNOSIDES-DOCUSATE SODIUM 1 EACH TAB PO SCH (21:00)
[2022-05-19] MEDS ORDERED: MONTELUKAST 10 MG TAB PO SCH (21:00)
[2022-05-19] MEDS: ASPIRIN 81 MG PO SCH (21:25)
[2022-05-19] MEDS: busPIRone HCl 10 MG TAB PO SCH (21:25)
[2022-05-20] MEDS: HYDROcodone/APAP 5-325MG 1 EACH TAB PO PRN ×2 (04:49→13:58)
[2022-05-20] MEDS ORDERED: LEVOTHYROXINE 50 MCG TAB PO SCH (06:30)
[2022-05-20] MEDS: busPIRone HCl 10 MG TAB PO SCH (07:50)
[2022-05-20] MEDS: ASPIRIN 81 MG PO SCH (07:50)
[2022-05-20 07:58] LABS: African American GFR (CKD) 41 (>60 ml/min/1.73 sqM); Anion Gap 8 mmol/L; Blood Urea Nitrogen 33 mg/dL (7-17); Carbon Dioxide 26 mmol/L (22-30); Chloride 100 mmol/L (98-107); Glucose 140 mg/dL (74-99); Non-African American GFR(CKD) 35 (>60 ml/min/1.73 sqM); Potassium 4.1 mmol/L (3.5-5.1); Sodium 134 mmol/L (137-145)
[2022-05-20] MEDS ORDERED: FLUoxetine HCL 20 MG CAP PO SCH (09:00)
[2022-05-20] MEDS ORDERED: FAMOTIDINE 20 MG TAB PO SCH (09:00)
[2022-05-20] MEDS ORDERED: CHOLECALCIFEROL 25 MCG (1000 IU) TABLET PO SCH (09:00)
[2022-05-20] MEDS ORDERED: allopurinoL 300 MG TAB PO SCH (09:00)
[2022-05-20] MEDS ORDERED: LORATADINE 10 MG TAB PO SCH (09:00)
--- NOTE | 2022-05-20 09:08 | P.DS ---
Providers Expected date of discharge: 05/20/22 Attending physician: Chip Pham Consults: 05/19/22 10:33 Consult Physician Routine Consulting Provider: Miranda Estrada Consult Reason/Comments: medical management Do you want consulting provider notified?: Yes [facility] Course: This is a 76-year-old female with known history of degenerative arthritis of the left hip. The patient presents for evaluation. After discussion and consideration patient elects to proceed with direct anterior left total hip arthroplasty. The patient is seen preoperatively by Dr. Williamson and cleared for surgery. Patient is admitted to [facility] on 05/19/22 for left total hip arthroplasty. The procedures performed without complication or sequelae. The patient is doing well postoperatively. Labs and vital signs are stable on day of discharge. Patient is examined bedside this morning with Dr. Pham. Her pain is well- controlled in the left hip. She has been ambulating with a walker with minimal assistance. She has passed physical therapy. No complaints or concerns day of discharge. Patient is mildly short of breath, although this is her baseline. Vital signs stable. On examination, patient is sitting up in the bedside chair in no apparent distress. She is alert and orientated x3. On inspection of the left hip, there are clean, dry, intact Opsite dressings intact. Hemovac drain removed bedside this morning. Mild swelling of the thigh, thigh is soft and compressible. Motor and sensory function intact LLE, femoral nerve function intact. Left lower extremity warm and well perfused. Calf non-tender. Patient is discharged to home with home health care in good condition, pending medical clearance. Please see med rec for accurate list of discharge medications. She was instructed to follow-up in the office in two weeks with Dr. Pham. Plan - Discharge Summary Discharge Rx Participant: Yes New Discharge Prescriptions: New Aspirin 81 mg PO BID 30 Days #60 tab HYDROcodone/APAP 5-325MG [[place] 5-325] 1 - 2 tab PO Q6HR PRN 7 Days #30 tab PRN Reason: Pain Omeprazole 40 mg PO DAILY 30 Days #30 cap Docusate [Colace] 100 mg PO BID #60 capsule Doxycycline Monohydrate 100 mg PO BID 14 Days #28 cap No Action Losartan/Hydrochlorothiazide [Losartan-Hctz 100-25 mg Tab] 1 tab PO QAM Famotidine [Pepcid] 20 mg PO QAM FLUoxetine HCL [PROzac] 60 mg PO QAM busPIRone HCL 10 mg PO BID amLODIPine BESYLATE 10 mg PO QAM allopurinoL [Zyloprim] 300 mg PO DAILY Zafirlukast [Accolate] 20 mg PO BID Simvastatin [Zocor] 20 mg PO HS Loratadine [Claritin] 10 mg PO DAILY ALPRAZolam [Xanax] 0.25 mg PO BID PRN PRN Reason: Anxiety Budesonide [Rhinocort Allergy] 1 spr EA NOSTRIL DAILY PRN PRN Reason: ALLERGY SYMPTOMS Multivitamins, Thera [Multivitamin (formulary)] 1 tab PO DAILY Cholecalciferol [Vitamin D3 (25 Mcg = 1000 Iu)] 4,000 unit PO DAILY Calcium 600 With D3 1 tab PO DAILY Ipratropium-Albuterol Nebulize [Duoneb 0.5 mg-3 mg/3 ml Soln] 3 ml INHALATION Q6H PRN PRN Reason: Shortness Of Breath Levothyroxine Sodium [Synthroid] 50 mcg PO QAM HYDROcodone/APAP 5-325MG [[place] 5-325] 1 tab PO Q4HR PRN 3 Days #18 tab PRN Reason: Pain Discharge Medication List ALPRAZolam [Xanax] 0.25 mg PO BID PRN 08/02/20 [History] Budesonide [Rhinocort Allergy] 1 spr EA NOSTRIL DAILY PRN 08/02/20 [History] Calcium 600 With D3 1 tab PO DAILY 08/02/20 [History] Cholecalciferol [Vitamin D3 (25 Mcg = 1000 Iu)] 4,000 unit PO DAILY 08/02/20 [History] FLUoxetine HCL [PROzac] 60 mg PO QAM 08/02/20 [History] Famotidine [Pepcid] 20 mg PO QAM 08/02/20 [History] Loratadine [Claritin] 10 mg PO DAILY 08/02/20 [History] Losartan/Hydrochlorothiazide [Losartan-Hctz 100-25 mg Tab] 1 tab PO QAM 08/02/20 [History] Multivitamins, Thera [Multivitamin (formulary)] 1 tab PO DAILY 08/02/20 [History] Simvastatin [Zocor] 20 mg PO HS 08/02/20 [History] Zafirlukast [Accolate] 20 mg PO BID 08/02/20 [History] allopurinoL [Zyloprim] 300 mg PO DAILY 08/02/20 [History] amLODIPine BESYLATE 10 mg PO QAM 08/02/20 [History] busPIRone HCL 10 mg PO BID 08/02/20 [History] Ipratropium-Albuterol Nebulize [Duoneb 0.5 mg-3 mg/3 ml Soln] 3 ml INHALATION Q6H PRN 02/09/22 [History] Levothyroxine Sodium [Synthroid] 50 mcg PO QAM 02/09/22 [History] HYDROcodone/APAP 5-325MG [[place] 5-325] 1 tab PO Q4HR PRN 3 Days #18 tab 04/19/22 [Rx] Aspirin 81 mg PO BID 30 Days #60 tab 05/20/22 [Rx] Docusate [Colace] 100 mg PO BID #60 capsule 05/20/22 [Rx] Doxycycline Monohydrate 100 mg PO BID 14 Days #28 cap 05/20/22 [Rx] HYDROcodone/APAP 5-325MG [[place] 5-325] 1 - 2 tab PO Q6HR PRN 7 Days #30 tab 05/20/22 [Rx] Omeprazole 40 mg PO DAILY 30 Days #30 cap 05/20/22 [Rx] Follow up Appointment(s)/Referral(s): [facility] [NON-STAFF] - As Needed Chip Pham MD [Medical Doctor] - 2 Weeks Activity/Diet/Wound Care/Special Instructions: Weight bear as tolerated on operative extremity with a walker. Keep operative dressing intact until follow-up in the office. Call the office if dressing becomes saturated or falls off. Take pain medications as prescribed. Take aspirin 81mg BID x 4 weeks for blood clot prevention. Follow-up in the office in two weeks with Dr. Pham. Call the office with any questions or concerns, Discharge Disposition: HOME WITH HOME HEALTH SERVICES
--- NOTE | 2022-05-20 11:39 | P.PN ---
Subjective Progress Note Date: 05/20/22 Patient this morning he was sleeping comfortably in her bed. When I saw the patient she denied any acute complaints. No acute issues overnight. Patient's blood pressure is normotensive this morning. I discussed with the patient that she should continue to hold her lisinopril and hydrochlorothiazide. I told patient to check up blood pressure at home and to contact her physician if elevated. Objective - Vital Signs Vital signs: Vital Signs Temp 98.5 F 05/20/22 08:00 Pulse 79 05/20/22 08:00 Resp 18 05/20/22 08:00 BP 115/75 05/20/22 08:00 Pulse Ox 97 05/20/22 08:19 FiO2 Intake & Output 05/19/22 05/20/22 05/20/22 18:59 06:59 18:59 Intake Total 1351 Output Total 285 Balance 1066 Weight 100.2 kg Intake: IV 1351 Output: Drainage 70 Left Hip 70 Estimated Blood Loss 215 Other: Voiding Method Toilet Toilet # Voids 1 2 - Exam General examination - Alert and Oriented 3 in NAD Heart - + S1S2 no murmurs Lungs - Clear to auscultation Abdomen soft NT ND +ve BS Extremities - No edema MANAGER RAIL - Moving all 4 extremities spontaneously Psych - Calm and cooperative - Labs CBC & Chem 7: 05/19/22 15:28 05/20/22 07:36 Labs: Abnormal Lab Results - Last 24 Hours (Table) 05/19/22 05/20/22 Range/Units 15:28 07:36 WBC 17.2 H (3.8-10.6) k/uL Sodium 134 L (137-145) mmol/L BUN 33 H (7-17) mg/dL Creatinine 1.44 H (0.52-1.04) mg/dL Glucose 140 H (74-99) mg/dL Assessment and Plan Assessment: 76 yo CF here for elective total hip arthroplatsy - management per ortho HTN - Blood pressure normotensive today - hold lisinopril/hctz -Resume amlodipine on discharge Leukocytosis Likely reactive from surgery Patient denies any sinus symptoms of infection CK D stage III -Patient had blood work done 2 weeks ago that showed a creatinine of 1.4. General hospitalization patient creatinine was 1.44. This is likely patient's baseline. GERD - H2 marce HLD - statin Asthma - prn bronchdilators Obesity with BMI 39.1 - outpatient follow-up Patient stable for discharge from a medical standpoint.
[2022-05-20 11:40] LABS: Basophils # (A) 0.04 X 10*3/uL (0.00-0.10); Basophils % (A) 0.3 %; Eosinophils # (A) 0.03 X 10*3/uL (0.04-0.35); Eosinophils % (A) 0.2 %; HCT 34.4 % (37.2-46.3); HGB 10.8 g/dL (12.0-15.0); Immature Grans, Automated 0.8 %; Lymphocytes # (A) 1.19 X 10*3/uL (0.90-5.00); Lymphocytes % (A) 8.3 %; MCHC 31.4 g/dL (32.0-37.0); MCV 98.9 fL (80.0-97.0); Mean Platelet Volume 11.6 fL (9.5-12.2); Monocytes # (A) 1.22 X 10*3/uL (0.20-1.00); Monocytes % (A) 8.5 %; NRBC Per 100 WBC 0 /100 WBCS (0.0-0.0); Neutrophils # (A) 11.74 X 10*3/uL (1.80-7.70); Neutrophils % (A) 81.9 %; Platelet Count 268 X 10*3/uL (140-440); RBC 3.48 X 10*6/uL (4.10-5.20); RDW 13.2 % (11.5-14.5); WBC 14.33 X 10*3/uL (4.50-10.00)
[2022-05-20 14:10] VITALS: BP 101/59; PULSE 91; RESP 16; TEMP 98.4
== END 2022-05-20 14:51 | disposition home health service (06) ==
LOC: OR 05:53 → 4SSUR 11:44 → OR 05-20 14:51
PROVIDERS: ATTEND Orthopaedic Surgery
DX: M16.12 Unilateral primary osteoarthritis, left hip (principal); J45.909 Unspecified asthma, uncomplicated; Z88.2 Allergy status to sulfonamides; Z88.3 Allergy status to other anti-infective agents; Z88.4 Allergy status to anesthetic agent; Z88.7 Allergy status to serum and vaccine; Z79.899 Other long term (current) drug therapy; Z79.890 Hormone replacement therapy; Z79.82 Long term (current) use of aspirin; Z82.49 Family history of ischemic heart disease and other diseases of the circulatory system
CPT/HCPCS: 94760; 97162; 86900; 86901; 80048; 85025; 85027; 86850; 73501; 27130; C1776; C1713; J2250; J1100; J0690 ×2; J2405; J1885; J1170 ×2

== ENCOUNTER 2023-10-10 11:59 | Inpatient (IN) | payer MEDICARE ==
--- NOTE | 2023-10-10 12:16 | ED ---
Arrhythmia/Palpitations HPI - General Source: patient, RN notes reviewed Mode of arrival: wheelchair Limitations: no limitations <Lizy Laird - Last Filed: 10/10/23 12:19> <Levi Adler - Last Filed: 10/10/23 15:31> - General Chief Complaint: Arrhythmia/Palpitations Stated Complaint: Abnormal EKG Time Seen by Provider: 10/10/23 12:13 - History of Present Illness Initial Comments: This is a 78 year old female who presents to the emergency department for palpitations. Patient saw her PCP for concerns of tachycardia and shortness of breath, and was found to be in a-fib. Denies any hx of a-fib or other cardiac problems. Denies any chest pain. Her PCP instructed her to come to the emergency department for further evaluation/management of new onset a-fib. She did have a chest x-ray at this facility just a few hours before arrival that was ordered by her PCP. (Lizy Laird) This is a 78-year-old female who presents to the emergency department stating over the weekend she felt short of breath and it was worthless exertion. Patient states she went to see her primary medical care doctor today and the doctor told her she had atrial fibrillation and she was rapidly needed to come to the hospital. Patient states she has no chest pain. Patient denies any fever chills or cough per patient denies any swelling to the legs or calf tenderness. Patient denies any recent illness. Patient is still short of breath. Patient has no history of any heart disease. (Levi Adler) - Related Data Home Medications Medication Instructions Recorded Confirmed ALPRAZolam [Xanax] 0.25 mg PO BID PRN 08/02/20 05/19/22 Budesonide [Rhinocort Allergy] 1 spr EA NOSTRIL DAILY PRN 08/02/20 05/19/22 Calcium 600 With D3 1 tab PO DAILY 08/02/20 05/12/22 Cholecalciferol [Vitamin D3 (25 4,000 unit PO DAILY 08/02/20 05/12/22 Mcg = 1000 Iu)] FLUoxetine HCL [PROzac] 60 mg PO QAM 08/02/20 05/19/22 Famotidine [Pepcid] 20 mg PO QAM 08/02/20 05/19/22 Loratadine [Claritin] 10 mg PO DAILY 08/02/20 05/19/22 Multivitamins, Thera [Multivitamin 1 tab PO DAILY 08/02/20 05/12/22 (formulary)] Simvastatin [Zocor] 20 mg PO HS 08/02/20 05/19/22 Zafirlukast [Accolate] 20 mg PO BID 08/02/20 05/19/22 allopurinoL [Zyloprim] 300 mg PO DAILY 08/02/20 05/19/22 amLODIPine BESYLATE 10 mg PO QAM 08/02/20 05/19/22 busPIRone HCL 10 mg PO BID 08/02/20 05/19/22 Ipratropium-Albuterol Nebulize 3 ml INHALATION Q6H PRN 02/09/22 05/19/22 [Duoneb 0.5 mg-3 mg/3 ml Soln] Levothyroxine Sodium [Synthroid] 50 mcg PO QAM 02/09/22 05/19/22 Previous Rx's Medication Instructions Recorded Aspirin 81 mg PO BID 30 Days #60 tab 05/20/22 Docusate [Colace] 100 mg PO BID #60 capsule 05/20/22 Doxycycline Monohydrate 100 mg PO BID 14 Days #28 cap 05/20/22 HYDROcodone/APAP 5-325MG [Phelps 1 - 2 tab PO Q6HR PRN 7 Days #30 05/20/22 5-325] tab Omeprazole 40 mg PO DAILY 30 Days #30 cap 05/20/22 Allergies Allergy/AdvReac Type Severity Reaction Status Date / Time sulfamethoxazole AdvReac Unknown STOMACH Verified 10/10/23 12:05 [From Bactrim] PAIN trimethoprim [From Bactrim] AdvReac Unknown STOMACH Verified 10/10/23 12:05 PAIN HORSE SERUM TETANAS Allergy Severe Anaphylaxis Uncoded 05/19/22 06:30 Novacaine Allergy Swelling Uncoded 05/19/22 06:30 Review of Systems ROS Other: All systems not noted in ROS Statement are negative. <Lizy Laird - Last Filed: 10/10/23 12:19> ROS Other: All systems not noted in ROS Statement are negative. <Levi Adler - Last Filed: 10/10/23 15:31> ROS Statement: Those systems with pertinent positive or pertinent negative responses have been documented in the HPI. Past Medical History Past Medical History: Asthma, GERD/Reflux, Hypertension, Sleep Apnea/CPAP/BIPAP Additional Past Medical History / Comment(s): Sleep Apnea (no machine), hx of septicemia, neck, back and shoulder pain, uses cane and rolling walker prn, just had gallbladder removed 2 weeks ago History of Any Multi-Drug Resistant Organisms: None Reported Past Surgical History: Adenoidectomy, Bariatric Surgery, Cholecystectomy, Hernia Repair, Joint Replacement, Tonsillectomy Additional Past Surgical History / Comment(s): GASTRIC SLEEVE (2010- DR MENDEZ), CARPAL TUNNEL MARILYN, CATARACTS, INGUINAL HERNIA, MARILYN TOTAL KNEES, RIGHT TOTAL HIP, injections in back for spinal stenosis and cervical injections., pain clinic procedures. recent [facility] kaylan mid March 2022 [facility] Past Anesthesia/Blood Transfusion Reactions: No Reported Reaction, Motion Sickness Past Psychological History: Anxiety, Depression Smoking Status: Never smoker Past Alcohol Use History: None Reported Past Drug Use History: None Reported - Past Family History Mother Family Medical History: No Reported History Additional Family Medical History / Comment(s): heart disease Father Additional Family Medical History / Comment(s): heart disease <Lizy Laird - Last Filed: 10/10/23 12:19> General Exam Limitations: no limitations <Lizy Laird - Last Filed: 10/10/23 12:19> <Levi Adler - Last Filed: 10/10/23 15:31> - General Exam Comments Initial Comments: Visual Physical Exam Vital signs reviewed General: Well-appearing, nontoxic, no acute distress. Head: Normocephalic, atraumatic Eyes: PERRLA, EOMI ENT: Airway patent Chest: Nonlabored breathing Skin: No visual rash, normal skin tone Neuro: Alert and oriented 3 Musculoskeletal: No gross abnormalities (Lizy Laird) GENERAL: Patient is well-developed and well-nourished. Patient is nontoxic and well- hydrated and is in mild distress. ENT: Neck is soft and supple. No significant lymphadenopathy is noted. Oropharynx is clear. Moist mucous membranes. Neck has full range of motion without eliciting any pain. There is no thyroid enlargement and no masses were felt. EYES: The sclera were anicteric and conjunctiva were pink and moist. Extraocular movements were intact and pupils were equal round and reactive to light. Eyelids were unremarkable. PULMONARY: Unlabored respirations. Good breath sounds bilaterally. No audible rales rhonchi or wheezing was noted. CARDIOVASCULAR: Patient's heart rate to 150 beats a minute ABDOMEN: Soft and nontender with normal bowel sounds. No palpable organomegaly was noted. There is no palpable pulsatile mass. SKIN: Skin is clear with no lesions or rashes and otherwise unremarkable. NEUROLOGIC: Patient is alert and oriented x3. Cranial nerves II through XII are grossly intact. Motor and sensory are also intact. Normal speech, volume and content. Symmetrical smile. Cerebellar exam grossly intact. MUSCULOSKELETAL: Normal extremities with adequate strength and full range of motion. No lower extremity swelling or edema. No calf tenderness. LYMPHATICS: No significant lymphadenopathy is noted PSYCHIATRIC: Normal psychiatric evaluation. Normal interpersonal interactions appears functionally intact in deals appropriately with others. No signs of depression. No signs of anxiety. No delusions. No hallucinations. (Levi Adler) Course Vital Signs 10/10/23 10/10/23 10/10/23 12:02 13:39 14:00 Temperature 97.8 F 98.6 F Pulse Rate 121 H 110 H 96 Respiratory 18 18 20 Rate Blood Pressure 110/67 101/87 117/95 O2 Sat by Pulse 96 95 96 Oximetry Medical Decision Making <Lizy Laird - Last Filed: 10/10/23 12:19> - Lab Data Result diagrams: 10/10/23 12:26 10/10/23 12:26 <Levi Adler - Last Filed: 10/10/23 15:31> - Medical Decision Making I performed the QuickNote portion of this chart. Signed Lizy Laird PA-C. (Lizy Laird) EKG is interpreted by myself. EKG shows atrial fibrillation with rapid ventricular response at 147 bpm QRS is 90 QT interval 33 QTC is 387. Patient's CT shows no ST segment elevation or depression. Was pt. sent in by a medical professional or institution (ANA LAURA Rodriguez, EVENT MANAGER, urgent care, hospital, or fpc...) When possible be specific @ -Patient was sent into us from her primary medical care doctor's office Did you speak to anyone other than the patient for history (EMS, parent, family, police, friend...)? What history was obtained from this source @ -No Did you review nursing and triage notes (agree or disagree)? Why? @ -I reviewed and agree with nursing and triage notes Were old charts reviewed (outside hosp., previous admission, EMS record, old EKG, old radiological studies, urgent care reports/EKG's, fpc records)? Report findings @ -I reviewed prior charts and prior lab work. Differential Diagnosis (chest pain, altered mental status, abdominal pain women, abdominal pain men, vaginal bleeding, weakness, fever, dyspnea, syncope, headache, dizziness, GI bleed, back pain, seizure, CVA, palpatations, mental health, musculoskeletal)? @ -Differential Palpitations Ventricular arrhythmias, atrial arrhythmias, myocardial infarction, anemia, thyrotoxicosis, electrolyte imbalance, hypokalemia, pulmonary embolism, pulmonary disease, drugs, alcohol, anxiety, stress.... This is not meant to be an all-inclusive list. EKG interpreted by me (3pts min.). @ -As above X-rays interpreted by me (1pt min.). @ -None done CT interpreted by me (1pt min.). @ -CT of the chest shows no pulmonary embolism however does show pulmonary edema U/S interpreted by me (1pt. min.). @ -None done What testing was considered but not performed or refused? (CT, X-rays, U/S, labs)? Why? @ -None What meds were considered but not given or refused? Why? @ -None Did you discuss the management of the patient with other professionals (professionals i.e. , PA, EVENT MANAGER, lab, RT, psych nurse, social scientist, shuttle filler, teacher, chief commercial officer, rehabilitation case coordinator)? Give summary @ -I spoke with Dr. tenorio Was smoking cessation discussed for >3mins.? @ -No Was critical care preformed (if so, how long)? @ -35 minutes Were there social determinants of health that impacted care today? How? (Homelessness, low income, unemployed, alcoholism, drug addiction, transportation, low edu. Level, literacy, decrease access to med. care, correction, rehab)? @ -No Was there de-escalation of care discussed even if they declined (Discuss DNR or withdrawal of care, Hospice)? DNR status @ -No What co-morbidities impacted this encounter? (DM, HTN, Smoking, COPD, CAD, Cancer, CVA, ARF, Chemo, Hep., AIDS, mental health diagnosis, sleep apnea, morbid obesity)? @ -None Was patient admitted / discharged? Hospital course, mention meds given and route, prescriptions, significant lab abnormalities, going to OR and other pertinent info. @ -Patient was started on Cardizem drip after giving the patient a Cardizem bolus per patient also got a fluid bolus. Patient also started on heparin. Undiagnosed new problem with uncertain prognosis? @ -No Drug Therapy requiring intensive monitoring for toxicity (Heparin, Nitro, Insulin, Cardizem)? @ -No Were any procedures done? @ -No Diagnosis/symptom? @ -A. fib with rapid ventricular response Acute, or Chronic, or Acute on Chronic? @ -Acute Uncomplicated (without systemic symptoms) or Complicated (systemic symptoms)? @ -Complicated Side effects of treatment? @ -No Exacerbation, Progression, or Severe Exacerbation? @ -No Poses a threat to life or bodily function? How? (Chest pain, [place], AR, pneumonia, PE, COPD, DKA, ARF, appy, cholecystitis, CVA, Diverticulitis, Homicidal, Suicidal, threat to staff... and all critical care pts) @ -Yes this can lead to hypoxia and intermittent dysfunction Diagnosis/symptom? @ -Pulmonary edema Acute, or Chronic, or Acute on Chronic? @ -Acute Uncomplicated (without systemic symptoms) or Complicated (systemic symptoms)? @ -Complicated Side effects of treatment? @ -none Exacerbation, Progression, or Severe Exacerbation] @ -no Poses a threat to life or bodily function? @ -This facility can lead to hypoxia and end organ dysfunction (Levi Adler) - Lab Data Lab Results 10/10/23 10/10/23 10/10/23 Range/Units 12:26 12:26 12:26 WBC 6.9 (3.8-10.6) k/uL RBC 4.51 (3.80-5.40) m/uL Hgb 13.6 (11.4-16.0) gm/dL Hct 42.8 (34.0-46.0) % MCV 94.9 (80.0-100.0) fL MCH 30.1 (25.0-35.0) pg MCHC 31.7 (31.0-37.0) g/dL RDW 14.1 (11.5-15.5) % Plt Count 260 (150-450) k/uL MPV 8.9 Neutrophils % 75 % Lymphocytes % 14 % Monocytes % 6 % Eosinophils % 2 % Basophils % 1 % Neutrophils # 5.2 (1.3-7.7) k/uL Lymphocytes # 1.0 (1.0-4.8) k/uL Monocytes # 0.4 (0-1.0) k/uL Eosinophils # 0.1 (0-0.7) k/uL Basophils # 0.1 (0-0.2) k/uL Hypochromasia Slight PT 10.6 (10.0-12.5) sec INR 1.0 (<1.2) APTT 22.1 (22.0-30.0) sec D-Dimer (<0.60) mg/L FEU Sodium 142 (137-145) mmol/L Potassium 4.4 (3.5-5.1) mmol/L Chloride 107 (98-107) mmol/L Carbon Dioxide 25 (22-30) mmol/L Anion Gap 10 mmol/L BUN 19 H (7-17) mg/dL Creatinine 1.10 H (0.52-1.04) mg/dL Est GFR (CKD-EPI)AfAm 56 (>60 ml/min/1.73 sqM) Est GFR (CKD-EPI)NonAf 48 (>60 ml/min/1.73 sqM) Glucose 132 H (74-99) mg/dL Calcium 10.0 (8.4-10.2) mg/dL Magnesium 2.0 (1.6-2.3) mg/dL Total Bilirubin 0.9 (0.2-1.3) mg/dL AST 50 H (14-36) U/L ALT 63 H (4-34) U/L Alkaline Phosphatase 123 (38-126) U/L Troponin I (0.000-0.034) ng/mL NT-Pro-B Natriuret Pep 7660 pg/mL Total Protein 6.9 (6.3-8.2) g/dL Albumin 4.2 (3.5-5.0) g/dL TSH (0.465-4.680) mIU/L 10/10/23 10/10/23 10/10/23 Range/Units 12:26 12:26 12:26 WBC (3.8-10.6) k/uL RBC (3.80-5.40) m/uL Hgb (11.4-16.0) gm/dL Hct (34.0-46.0) % MCV (80.0-100.0) fL MCH (25.0-35.0) pg MCHC (31.0-37.0) g/dL RDW (11.5-15.5) % Plt Count (150-450) k/uL MPV Neutrophils % % Lymphocytes % % Monocytes % % Eosinophils % % Basophils % % Neutrophils # (1.3-7.7) k/uL Lymphocytes # (1.0-4.8) k/uL Monocytes # (0-1.0) k/uL Eosinophils # (0-0.7) k/uL Basophils # (0-0.2) k/uL Hypochromasia PT (10.0-12.5) sec INR (<1.2) APTT (22.0-30.0) sec D-Dimer 0.93 H (<0.60) mg/L FEU Sodium (137-145) mmol/L Potassium (3.5-5.1) mmol/L Chloride (98-107) mmol/L Carbon Dioxide (22-30) mmol/L Anion Gap mmol/L BUN (7-17) mg/dL Creatinine (0.52-1.04) mg/dL Est GFR (CKD-EPI)AfAm (>60 ml/min/1.73 sqM) Est GFR (CKD-EPI)NonAf (>60 ml/min/1.73 sqM) Glucose (74-99) mg/dL Calcium (8.4-10.2) mg/dL Magnesium (1.6-2.3) mg/dL Total Bilirubin (0.2-1.3) mg/dL AST (14-36) U/L ALT (4-34) U/L Alkaline Phosphatase (38-126) U/L Troponin I 0.016 (0.000-0.034) ng/mL NT-Pro-B Natriuret Pep pg/mL Total Protein (6.3-8.2) g/dL Albumin (3.5-5.0) g/dL TSH 4.230 (0.465-4.680) mIU/L Critical Care Time Critical Care Time: Yes Total Critical Care Time: 35 <Levi Adler - Last Filed: 10/10/23 15:31> Disposition <Lizy Laird - Last Filed: 10/10/23 12:19> Time of Disposition: 15:31 <Levi Adler - Last Filed: 10/10/23 15:31> Clinical Impression: Atrial fibrillation with rapid ventricular response, Acute pulmonary edema Disposition: ADMITTED IP TO THIS HOSP Referrals: Blas Williamson DO [Primary Care Provider] - 1-2 days
[2023-10-10 12:43] LABS: Basophils # (A) 0.1 k/uL (0-0.2); Basophils % (A) 1 %; Eosinophils # (A) 0.1 k/uL (0-0.7); Eosinophils % (A) 2 %; HCT 42.8 % (34.0-46.0); HGB 13.6 gm/dL (11.4-16.0); Hypochromasia Slight; Lymphocytes % (A) 14 %; MCH 30.1 pg (25.0-35.0); MCHC 31.7 g/dL (31.0-37.0); MCV 94.9 fL (80.0-100.0); Mean Platelet Volume 8.9; Monocytes # (A) 0.4 k/uL (0-1.0); Monocytes % (A) 6 %; Neutrophils # (A) 5.2 k/uL (1.3-7.7); Neutrophils % (A) 75 %; Platelet Count 260 k/uL (150-450); RBC 4.51 m/uL (3.80-5.40); RDW 14.1 % (11.5-15.5); WBC 6.9 k/uL (3.8-10.6)
[2023-10-10] MEDS ORDERED: DILTIAZEM DRIP BOLUS FROM BAG 1 MG SOLN IV ONE (12:52)
[2023-10-10] MEDS ORDERED: HEPARIN SODIUM 1,000 UN/ML (10ML VL) IV ONE (12:52)
[2023-10-10] MEDS ORDERED: SODIUM CHLORIDE 0.9% 1,000 ML IV ONE (12:53)
[2023-10-10] MEDS ORDERED: HEPARIN SOD,PORK IN 0.45% NACL 25,000 UNIT in 0.45% NACL 1 250ML.BAG IV SCH (13:00)
[2023-10-10 13:03] LABS: ALT 63 U/L (4-34); AST 50 U/L (14-36); African American GFR (CKD) 56 (>60 ml/min/1.73 sqM); Albumin 4.2 g/dL (3.5-5.0); Alkaline Phosphatase 123 U/L (38-126); Anion Gap 10 mmol/L; Blood Urea Nitrogen 19 mg/dL (7-17); Carbon Dioxide 25 mmol/L (22-30); Chloride 107 mmol/L (98-107); Glucose 132 mg/dL (74-99); Non-African American GFR(CKD) 48 (>60 ml/min/1.73 sqM); Potassium 4.4 mmol/L (3.5-5.1); Sodium 142 mmol/L (137-145); Total Bilirubin 0.9 mg/dL (0.2-1.3); Total Protein 6.9 g/dL (6.3-8.2)
[2023-10-10 13:04] LABS: Partial Thromboplastin Time 22.1 sec (22.0-30.0); Prothrombin Time 10.6 sec (10.0-12.5)
[2023-10-10 13:11] LABS: NT-Pro-B-Type Natriuretic Pept 7660 pg/mL
[2023-10-10] MEDS: DILTIAZEM 125 MG in SODIUM CHLORIDE 0.9% 100 ML IV SCH (13:12)
--- NOTE | 2023-10-10 15:08 | CT ---
EXAMINATION TYPE: CT chest angio for PE DATE OF EXAM: 10/10/2023 COMPARISON: NONE HISTORY: Abnormal EKG, elevated d-dimer, SOB CT DLP: 577.4 mGycm. Automated Exposure Control for Dose Reduction was Utilized. CONTRAST: CTA scan of the thorax is performed with IV Contrast, patient injected with 80 mL of Isovue 300, pulm onary embolism protocol. MIP Images are created on CT scanner and reviewed. FINDINGS: LUNGS: Small bilateral pleural effusions are present with associated compressive atelectasis in the b ases. No pneumothorax seen bilaterally. MEDIASTINUM: There is satisfactory enhancement of the pulmonary artery and its branches, there is no CT evidence for pulmonary embolism. Cardiomegaly is present. There is at least moderate right greater than left by atrial dilatation. There is mild to moderate biventricular dilatation. There is moderat e to severe coronary artery calcification. Trace pericardial effusion anterior inferior aspect is see n. Some enhancement of the thoracic aorta without aneurysm or dissection. Slightly small thyroid glan d is noted.. OTHER: Surgical changes from gastric sleeve procedure are seen. Scoliotic curvature in the spine. Mul tilevel spurring is present. IMPRESSION: 1. No CT evidence for acute pulmonary embolism. 2. CT findings are consistent with CHF exacerbation as there is cardiomegaly with small bilateral ple ural effusions. Correlate clinically and with BNP values.
[2023-10-10] MEDS ORDERED: FUROSEMIDE 10 MG/ML 2 ML VIAL IV ONE (15:34)
[2023-10-10] MEDS ORDERED: IPRATROPIUM-ALBUTEROL 3 ML NEB INHALATION PRN (16:24)
--- NOTE | 2023-10-10 16:27 | P.HPIM ---
History of Present Illness H&P Date: 10/10/23 78-year-old female with PMH of anxiety disorder, asthma, dyslipidemia, GERD, hypothyroidism presents to the ED for shortness of breath. Shortness of breath has been ongoing for the past 3-4 days. Worsened with exertion. She reports difficulty laying flat. No lower extremity edema. No history of CAD or CHF. In the ED, she underwent extensive evaluation. BP 138/89, HR 106, T 98F, 96% on RA. CBC unremarkable. Coagulation panel within normal limits. D-dimer 0.93. CMP BUN 19, Cr 1.10, glu 132, AST 50, ALT 63. Troponin 0.016. BNP 7660. TSH 4.23. EKG A-Fib with RVR rate 147 Chest CTA no PE, cardiomegaly, small bilateral pleural effusion. Patient is admitted for further management and workup. General: non toxic, no distress, appears at stated age Derm: warm, dry Head: atraumatic, normocephalic, symmetric Eyes: EOMI, no lid lag, anicteric sclera Mouth: no lip lesion, mucus membranes moist Cardiovascular: Irr Irregular, no murmur Lungs: Decreased BS bilateral, no rhonchi, no rales , no accessory muscle use Abdominal: soft, nontender to palpation, no guarding, no appreciable organomegaly Ext: no gross muscle atrophy, no edema, no contractures Neuro: no focal neuro deficits Psych: Alert, oriented, appropriate affect Based on my assessment of this patient, this patient meets a high complexity level of care. Patient has an acute diagnosis of CHF exacerbation with A-Fib with RVR which poses a threat to life or bodily function. Atrial fibrillation with RVR: Cardizem drip at 5 ml/hr. Heparin drip at 10.16 units/kg/hr. Echo. Maintain K > 4 and Mg > 2. Likely CHF exacerbation: Lasix 40 mg IV QD. Strict intake and outtake. Daily weights. Cardiology consult. Acute kidney injury: Monitor while patient is on Lasix. Transaminitis: Venous congestion from CHF? Elevated D-Dimer: PE ruled out. Chronic conditions: anxiety disorder, asthma, dyslipidemia, GERD, hypothyroidism CODE STATUS: FULL CODE DVT Prophylaxis: Heparin drip GI Prophylaxis: Designated medical POA if patient is not able to make medical decisions for themselves: I have reviewed the following industrial methods consultant notes: I have reviewed the results of the following tests: As above. I have ordered the following tests: I have discussed the care of this patient with the following independent historian: I have independently interpreted the following test below: EKG I have discussed the management of this patient with the following physician: Past Medical History Past Medical History: Asthma, GERD/Reflux, Hypertension, Sleep Apnea/CPAP/BIPAP Additional Past Medical History / Comment(s): Sleep Apnea (no machine), hx of septicemia, neck, back and shoulder pain, uses cane and rolling walker prn, just had gallbladder removed 2 weeks ago History of Any Multi-Drug Resistant Organisms: None Reported Past Surgical History: Adenoidectomy, Bariatric Surgery, Cholecystectomy, Hernia Repair, Joint Replacement, Tonsillectomy Additional Past Surgical History / Comment(s): GASTRIC SLEEVE (2010- DR MENDEZ), CARPAL TUNNEL MARILYN, CATARACTS, INGUINAL HERNIA, MARILYN TOTAL KNEES, RIGHT TOTAL HIP, injections in back for spinal stenosis and cervical injections., pain clinic procedures. recent lap kaylan mid March 2022 @[facility] Past Anesthesia/Blood Transfusion Reactions: No Reported Reaction, Motion Sickness Past Psychological History: Anxiety, Depression Smoking Status: Never smoker Past Alcohol Use History: None Reported Past Drug Use History: None Reported - Past Family History Mother Family Medical History: No Reported History Additional Family Medical History / Comment(s): heart disease Father Additional Family Medical History / Comment(s): heart disease Medications and Allergies Home Medications Medication Instructions Recorded Confirmed Type ALPRAZolam [Xanax] 0.25 mg PO BID PRN 08/02/20 05/19/22 History Budesonide [Rhinocort Allergy] 1 spr EA NOSTRIL DAILY PRN 08/02/20 05/19/22 History Calcium 600 With D3 1 tab PO DAILY 08/02/20 05/12/22 History Cholecalciferol [Vitamin D3 (25 4,000 unit PO DAILY 08/02/20 05/12/22 History Mcg = 1000 Iu)] FLUoxetine HCL [PROzac] 60 mg PO QAM 08/02/20 05/19/22 History Famotidine [Pepcid] 20 mg PO QAM 08/02/20 05/19/22 History Loratadine [Claritin] 10 mg PO DAILY 08/02/20 05/19/22 History Multivitamins, Thera [Multivitamin 1 tab PO DAILY 08/02/20 05/12/22 History (formulary)] Simvastatin [Zocor] 20 mg PO HS 08/02/20 05/19/22 History Zafirlukast [Accolate] 20 mg PO BID 08/02/20 05/19/22 History allopurinoL [Zyloprim] 300 mg PO DAILY 08/02/20 05/19/22 History amLODIPine BESYLATE 10 mg PO QAM 08/02/20 05/19/22 History busPIRone HCL 10 mg PO BID 08/02/20 05/19/22 History Ipratropium-Albuterol Nebulize 3 ml INHALATION Q6H PRN 02/09/22 05/19/22 History [Duoneb 0.5 mg-3 mg/3 ml Soln] Levothyroxine Sodium [Synthroid] 50 mcg PO QAM 02/09/22 05/19/22 History Aspirin 81 mg PO BID 30 Days #60 tab 05/20/22 Rx Docusate [Colace] 100 mg PO BID #60 capsule 05/20/22 Rx Doxycycline Monohydrate 100 mg PO BID 14 Days #28 cap 05/20/22 Rx HYDROcodone/APAP 5-325MG [[place] 1 - 2 tab PO Q6HR PRN 7 Days #30 05/20/22 Rx 5-325] tab Omeprazole 40 mg PO DAILY 30 Days #30 cap 05/20/22 Rx Allergies Allergy/AdvReac Type Severity Reaction Status Date / Time sulfamethoxazole AdvReac Unknown STOMACH Verified 10/10/23 12:05 [From Bactrim] PAIN trimethoprim [From Bactrim] AdvReac Unknown STOMACH Verified 10/10/23 12:05 PAIN HORSE SERUM TETANAS Allergy Severe Anaphylaxis Uncoded 05/19/22 06:30 Novacaine Allergy Swelling Uncoded 05/19/22 06:30 Physical Exam Vitals: Vital Signs Temp Pulse Resp BP Pulse Ox 10/10/23 16:18 98.0 F 106 H 18 138/89 96 10/10/23 14:00 96 20 117/95 96 10/10/23 13:39 98.6 F 110 H 18 101/87 95 10/10/23 12:02 97.8 F 121 H 18 110/67 96 Intake and Output 10/10/23 10/10/23 10/10/23 06:59 14:59 22:59 Other: Weight 98.43 kg Results CBC & Chem 7: 10/10/23 12:26 10/10/23 12:26 Labs: Abnormal Lab Results - Last 24 Hours (Table) 10/10/23 10/10/23 Range/Units 12:26 12:26 D-Dimer 0.93 H (<0.60) mg/L FEU BUN 19 H (7-17) mg/dL Creatinine 1.10 H (0.52-1.04) mg/dL Glucose 132 H (74-99) mg/dL AST 50 H (14-36) U/L ALT 63 H (4-34) U/L
[2023-10-10 16:55] LABS: Appearance,Urine Clear (Clear); Bacteria,Urine Rare /hpf; Bilirubin,Urine Negative (Negative); Blood,Urine Negative (Negative); Color,Urine Colorless; Glucose,Urine (UA) Negative (Negative); Ketones,Urine Negative (Negative); Leukocyte Esterase,Urine Moderate (Negative); Mucus,Urine Rare /hpf; Nitrite,Urine Positive (Negative); Protein,Urine Trace (Negative); RBC,Urine 2 /hpf (0-5); Specific Gravity,Urine 1.025 (1.001-1.035); Squamous Epithelial Cell,Urine 4 /hpf (0-4); Urobilinogen,Urine <2.0 mg/dL (<2.0); WBC,Urine 32 /hpf (0-5)
[2023-10-10] MEDS: busPIRone HCl 10 MG TAB PO SCH (20:17)
[2023-10-10] MEDS: ATORVASTATIN 10 MG TAB PO SCH (20:17)
[2023-10-10] MEDS: MONTELUKAST 10 MG TAB PO SCH (20:17)
[2023-10-10] MEDS: HEPARIN SODIUM 1,000 UN/ML (10ML VL) IV PRN (21:01)
[2023-10-11 02:47] LABS: HCT 39.1 % (34.0-46.0); HGB 12.5 gm/dL (11.4-16.0); Hypochromasia Slight; MCH 30.2 pg (25.0-35.0); MCHC 31.9 g/dL (31.0-37.0); MCV 94.7 fL (80.0-100.0); Mean Platelet Volume 8.9; Platelet Count 237 k/uL (150-450); RBC 4.13 m/uL (3.80-5.40); WBC 6.9 k/uL (3.8-10.6)
[2023-10-11 03:02] LABS: ALT 52 U/L (4-34); AST 40 U/L (14-36); African American GFR (CKD) 54 (>60 ml/min/1.73 sqM); Alkaline Phosphatase 115 U/L (38-126); Anion Gap 11 mmol/L; Blood Urea Nitrogen 18 mg/dL (7-17); Calcium 9.8 mg/dL (8.4-10.2); Carbon Dioxide 22 mmol/L (22-30); Chloride 108 mmol/L (98-107); Glucose 103 mg/dL (74-99); Non-African American GFR(CKD) 46 (>60 ml/min/1.73 sqM); Potassium 3.9 mmol/L (3.5-5.1); Sodium 141 mmol/L (137-145); Total Bilirubin 0.9 mg/dL (0.2-1.3); Total Protein 6.5 g/dL (6.3-8.2)
[2023-10-11] MEDS: HEPARIN SODIUM 1,000 UN/ML (10ML VL) IV PRN (04:44)
[2023-10-11] MEDS: LEVOTHYROXINE 50 MCG TAB PO SCH (06:39)
[2023-10-11] MEDS ORDERED: amLODIPine 10 MG TAB PO SCH (09:00)
[2023-10-11 09:01] LABS: Chol/HDL Ratio 2.07 Ratio; LDL Cholesterol,Calculated 35.5 mg/dL (0.0-131.0)
[2023-10-11] MEDS: ASPIRIN 325 MG TAB PO SCH (09:04)
[2023-10-11] MEDS: APIXABAN 5 MG TAB PO SCH ×2 (09:05→21:57)
[2023-10-11] MEDS: amLODIPine 5 MG TAB PO SCH (09:05)
[2023-10-11] MEDS: allopurinoL 300 MG TAB PO SCH (09:05)
[2023-10-11] MEDS: PANTOPRAZOLE 40 MG TABLET PO SCH (09:05)
[2023-10-11] MEDS: FAMOTIDINE 20 MG TAB PO SCH ×2 (09:06→09:07)
[2023-10-11] MEDS: busPIRone HCl 10 MG TAB PO SCH ×2 (09:06→21:58)
[2023-10-11] MEDS: METOPROLOL TARTRATE 50 MG TAB PO SCH ×2 (09:07→21:57)
[2023-10-11] MEDS: FLUoxetine HCL 20 MG CAP PO SCH (09:07)
[2023-10-11] MEDS: LORATADINE 10 MG TAB PO SCH (09:07)
[2023-10-11] MEDS: FUROSEMIDE 10 MG/ML 4 ML VIAL IV SCH (09:08)
[2023-10-11 09:54] LABS: African American GFR (CKD) 57 (>60 ml/min/1.73 sqM); Anion Gap 13 mmol/L; Blood Urea Nitrogen 17 mg/dL (7-17); Calcium 9.8 mg/dL (8.4-10.2); Carbon Dioxide 20 mmol/L (22-30); Chloride 108 mmol/L (98-107); Glucose 120 mg/dL (74-99); Non-African American GFR(CKD) 49 (>60 ml/min/1.73 sqM); Sodium 141 mmol/L (137-145)
--- NOTE | 2023-10-11 11:09 | P.CRDCN ---
History of Present Illness Consult date: 10/11/23 Requesting physician: Levi Adler Consult reason: atrial fibrillation History of present illness: History of present illness: This is a 78-year-old female patient with past medical history of anxiety, asthma, dyslipidemia, gastroesophageal reflux disease, hypothyroidism. We have been asked to evaluate the patient for A. fib with RVR. Patient presented to the hospital due to shortness of breath at about going on for a few days, dyspnea with exertion and difficulty laying flat. Patient states that she has been feeling quite weak and tired and couldn't catch her breath. She denies any lower extremity edema. It has been going on since Sunday almost a week. 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 She is seen today in the emergency center waiting for a bed on the cardiac stepdown unit. Patient is status post IV Lasix 20 mg, Cardizem bolus of 5 mg and a drip at 5 mg per hour and she has been started on heparin drip. EKG atrial fibrillation with ventricular rate of 147 bpm. Telemetry is atrial fibrillation 128 bpm. CTA of the chest negative for acute pulmonary embolism. Findings consistent with CHF exacerbation, cardiomegaly with small bilateral pleural effusions. CBC normal. INR 1. Dimer 0.93. Sodium 141, potassium 3.9, BUN 18 creatinine 1.14. Troponin negative 3. Magnesium 2.0. AST 40, ALT 52, alkaline phosphatase 115. ProBNP 7660. TSH 4.23. Urinalysis with leukoesterase moder ate, wbc's 30 to nitrate positive. Home cardiac medications: Amlodipine 10 mg daily, losartan/hydrochlorothiazide 76780 milligrams daily, simvastatin 20 mg daily. Review Of Systems: At the time of my exam: CONSTITUTIONAL: Denies fever or chills. Reports weakness, fatigue CARDIOVASCULAR: Denies chest pain, reports shortness of breath, no orthopnea, PND or palpitations. RESPIRATORY: Denies cough. GASTROINTESTINAL: Denies abdominal pain, diarrhea, constipation, nausea or vomiting. MUSCULOSKELETAL: Denies myalgias. NEUROLOGIC: Denies numbness, tingling or weakness. ENDOCRINE: Denies fatigue, weight change, polydipsia or polyurina. GENITOURINARY: Denies burning, hematuria or urgency with micturation. HEMATOLOGIC: Denies history of anemia or bleeding. Physical examination: Gen: This is a 78-year-old female appears to be in no acute distress. VS: reviewed HEENT: Head is atraumatic, normocephalic. Pupils equal, round. Sclerae is anicteric. NECK: Supple. No JVD. LUNGS: Clear to auscultation. No wheezes or rhonchi. No intercostal retractions. HEART: Irregular rate and rhythm. No murmur. ABDOMEN: Soft No tenderness. EXTREMITIES: No pedal edema. No calf tenderness. NEUROLOGICAL: Patient is awake, alert and oriented x3. Assessment: New onset paroxysmal atrial fibrillation with RVR History of anxiety History of asthma Dyslipidemia Gastroesophageal reflux disease Hypothyroidism Plan: Discontinue heparin drip and start patient on eliquis 5 mg twice daily Continue Cardizem 5 mg per hour Start patient on Lopressor 50 mg twice daily and if heart rate is controlled t his afternoon, Cardizem will be discontinued. Obtain 2-D echocardiogram and Doppler study to assess cardiac structure and function Further recommendations to follow based upon clinical course Thank you kindly for this consultation. Nurse practitioner note has been reviewed, I agree with documented findings and plan of care. Patient was seen and examined. Past Medical History Past Medical History: Asthma, GERD/Reflux, Hypertension, Sleep Apnea/CPAP/BIPAP Additional Past Medical History / Comment(s): Sleep Apnea (no machine), hx of septicemia, neck, back and shoulder pain, uses cane and rolling walker prn, just had gallbladder removed 2 weeks ago History of Any Multi-Drug Resistant Organisms: None Reported Past Surgical History: Adenoidectomy, Bariatric Surgery, Cholecystectomy, Hernia Repair, Joint Replacement, Tonsillectomy Additional Past Surgical History / Comment(s): GASTRIC SLEEVE (2010- DR MENDEZ), CARPAL TUNNEL MARILYN, CATARACTS, INGUINAL HERNIA, MARILYN TOTAL KNEES, RIGHT TOTAL HIP, injections in back for spinal stenosis and cervical injections., pain clinic procedures. recent lap kaylan mid March 2022 @[facility] Past Anesthesia/Blood Transfusion Reactions: No Reported Reaction, Motion Sickness Past Psychological History: Anxiety, Depression Smoking Status: Never smoker Past Alcohol Use History: None Reported Past Drug Use History: None Reported - Past Family History Mother Family Medical History: No Reported History Additional Family Medical History / Comment(s): heart disease Father Additional Family Medical History / Comment(s): heart disease Medications and Allergies Home Medications Medication Instructions Recorded Confirmed Type ALPRAZolam [Xanax] 0.25 mg PO BID PRN 08/02/20 10/10/23 History Cholecalciferol [Vitamin D3 (25 50 mcg PO DAILY 08/02/20 10/10/23 History Mcg = 1000 Iu)] FLUoxetine HCL [PROzac] 60 mg PO DAILY 08/02/20 10/10/23 History Multivitamins, Thera [Multivitamin 1 tab PO DAILY 08/02/20 10/10/23 History (formulary)] Simvastatin [Zocor] 20 mg PO HS 08/02/20 10/10/23 History Zafirlukast [Accolate] 20 mg PO BID 08/02/20 10/10/23 History allopurinoL [Zyloprim] 300 mg PO DAILY 08/02/20 10/10/23 History amLODIPine BESYLATE 10 mg PO DAILY 08/02/20 10/10/23 History busPIRone HCL 10 mg PO BID 08/02/20 10/10/23 History Levothyroxine Sodium [Synthroid] 50 mcg PO AC-BRKFST 02/09/22 10/10/23 History Losartan/Hydrochlorothiazide 1 tab PO DAILY 10/10/23 10/10/23 History [Losartan-Hctz 100-25 mg Tab] Pantoprazole [Protonix] 40 mg PO DAILY 10/10/23 10/10/23 History Allergies Allergy/AdvReac Type Severity Reaction Status Date / Time sulfamethoxazole AdvReac Unknown STOMACH Verified 10/10/23 16:30 [From Bactrim] PAIN trimethoprim [From Bactrim] AdvReac Unknown STOMACH Verified 10/10/23 16:30 PAIN HORSE SERUM TETANAS Allergy Severe Anaphylaxis Uncoded 10/10/23 16:30 Novacaine Allergy Anaphylaxis Uncoded 10/10/23 16:30 Physical Exam Vitals: Vital Signs Temp Pulse Resp BP Pulse Ox 10/11/23 06:18 98.4 F 72 16 128/92 98 10/10/23 22:35 112 H 18 144/97 95 10/10/23 21:06 111 H 18 115/92 96 10/10/23 19:26 111 H 18 130/95 96 10/10/23 17:23 98.1 F 92 20 159/129 98 10/10/23 16:18 98.0 F 106 H 18 138/89 96 10/10/23 14:00 96 20 117/95 96 10/10/23 13:39 98.6 F 110 H 18 101/87 95 10/10/23 12:02 97.8 F 121 H 18 110/67 96 Intake and Output 10/10/23 10/11/23 10/11/23 22:59 06:59 14:59 Intake Total 69.667 99.738 Balance 69.667 99.738 Intake: Intake, IV Titration 69.667 99.738 Amount Heparin Sod,Pork in 0.45% 69.667 99.738 NaCl 25,000 unit In 0.45 % NaCl 1 250ml.bag @ 10. 16 UNITS/KG/HR 10 mls/hr IV .Q24H [facility] Rx#: [id number] Results 10/11/23 02:15 10/11/23 08:26 Cardiac Enzymes 10/10/23 10/10/23 10/10/23 Range/Units 12:26 12:26 16:34 AST 50 H (14-36) U/L Troponin I 0.016 0.013 (0.000-0.034) ng/mL 10/10/23 10/11/23 Range/Units 19:50 02:15 AST 40 H (14-36) U/L Troponin I 0.013 (0.000-0.034) ng/mL Coagulation 10/10/23 10/10/23 10/11/23 Range/Units 12:26 19:50 02:15 PT 10.6 (10.0-12.5) sec APTT 22.1 26.1 22.7 (22.0-30.0) sec CBC 10/10/23 10/11/23 Range/Units 12:26 02:15 WBC 6.9 6.9 (3.8-10.6) k/uL RBC 4.51 4.13 (3.80-5.40) m/uL Hgb 13.6 12.5 (11.4-16.0) gm/dL Hct 42.8 39.1 (34.0-46.0) % Plt Count 260 237 (150-450) k/uL Comprehensive Metabolic Panel 10/10/23 10/11/23 Range/Units 12:26 02:15 Sodium 142 141 (137-145) mmol/L Potassium 4.4 3.9 (3.5-5.1) mmol/L Chloride 107 108 H (98-107) mmol/L Carbon Dioxide 25 22 (22-30) mmol/L BUN 19 H 18 H (7-17) mg/dL Creatinine 1.10 H 1.14 H (0.52-1.04) mg/dL Glucose 132 H 103 H (74-99) mg/dL Calcium 10.0 9.8 (8.4-10.2) mg/dL AST 50 H 40 H (14-36) U/L ALT 63 H 52 H (4-34) U/L Alkaline Phosphatase 123 115 (38-126) U/L Total Protein 6.9 6.5 (6.3-8.2) g/dL Albumin 4.2 4.0 (3.5-5.0) g/dL Current Medications Generic Name Dose Route Start Last Admin Trade Name Freq PRN Reason Stop Dose Admin Albuterol/Ipratropium 3 ml 10/10/23 16:24 Ipratropium-Albuterol 3 Ml Neb INHALATION Q6H PRN Shortness Of Breath Allopurinol 300 mg 10/11/23 09:00 Allopurinol 300 Mg Tab PO DAILY [facility] Alprazolam 0.25 mg 10/10/23 16:24 Alprazolam 0.25 Mg Tab PO BID PRN Anxiety Amlodipine Besylate 10 mg 10/11/23 09:00 Amlodipine 10 Mg Tab PO QAM [facility] Aspirin 325 mg 10/11/23 09:00 Aspirin 325 Mg Tab PO DAILY [facility] Atorvastatin Calcium 10 mg 10/10/23 21:00 10/10/23 20:17 Atorvastatin 10 Mg Tab PO 10 mg HS CLIVE Administration Buspirone HCl 10 mg 10/10/23 21:00 10/10/23 20:17 Buspirone Hcl 10 Mg Tab PO 10 mg BID [facility] Administration Famotidine 20 mg 10/11/23 09:00 Famotidine 20 Mg Tab PO QAM [facility] Fluoxetine HCl 60 mg 10/11/23 09:00 Fluoxetine Hcl 20 Mg Cap PO QAM [facility] Furosemide 40 mg 10/11/23 09:00 Furosemide 10 Mg/Ml 4 Ml Vial IV DAILY [facility] Heparin Sodium (Porcine) 0 unit 10/10/23 20:56 10/11/23 04:44 Heparin Sodium 1,000 Un/Ml (10ml Vl) IV 4,000 unit PER PROTOCOL PRN Administration Low PTT Protocol Heparin Sodium/Sodium Chloride 250 mls @ 10 mls/hr 10/10/23 13:00 10/11/23 04:42 25,000 unit/ Sodium Chloride IV 16.16 units/kg/hr .Q24H [facility] 15.906 mls/hr Titration Protocol 10.16 UNITS/KG/HR Diltiazem HCl 125 mg/ Sodium 125 mls @ 5 mls/hr 10/10/23 13:00 10/10/23 13:12 Chloride IV 5 mg/hr .Q24H [facility] 5 mls/hr Administration 5 MG/HR Levothyroxine Sodium 50 mcg 10/11/23 06:30 10/11/23 06:39 Levothyroxine 50 Mcg Tab PO 50 mcg DAILY@0630 [facility] Administration Loratadine 10 mg 10/11/23 09:00 Loratadine 10 Mg Tab PO DAILY [facility] Montelukast Sodium 10 mg 10/10/23 21:00 10/10/23 20:17 Montelukast 10 Mg Tab PO 10 mg HS [facility] Administration Pantoprazole Sodium 40 mg 10/11/23 07:30 Pantoprazole 40 Mg Tablet PO AC-BRKFST [facility] Intake and Output 10/10/23 10/11/23 10/11/23 22:59 06:59 14:59 Intake Total 69.667 99.738 Balance 69.667 99.738 Intake: Intake, IV Titration 69.667 99.738 Amount Heparin Sod,Pork in 0.45% 69.667 99.738 NaCl 25,000 unit In 0.45 % NaCl 1 250ml.bag @ 10. 16 UNITS/KG/HR 10 mls/hr IV .Q24H [facility] Rx#: [id number] 10/11/23 02:15 10/11/23 02:15
--- NOTE | 2023-10-11 11:50 | P.PN ---
Subjective Progress Note Date: 10/11/23 78-year-old female with PMH of anxiety disorder, asthma, dyslipidemia, GERD, hypothyroidism presents to the ED for shortness of breath. Shortness of breath has been ongoing for the past 3-4 days. Worsened with exertion. She reports difficulty laying flat. No lower extremity edema. No history of CAD or CHF. In the ED, she underwent extensive evaluation. BP 138/89, HR 106, T 98F, 96% on RA. CBC unremarkable. Coagulation panel within normal limits. D-dimer 0.93. CMP BUN 19, Cr 1.10, glu 132, AST 50, ALT 63. Troponin 0.016. BNP 7660. TSH 4.23. EKG A-Fib with RVR rate 147 Chest CTA no PE, cardiomegaly, small bilateral pleural effusion. 10/11 Patient was seen and examined. Currently on Lasix 40 mg IV QD. Cardiology consulted, heparin drip switched to Eliquis, started on Metoprolol 50 mg PO BID, maintained on Cardizem drip at 5 mg/hr. BMP Cl 108, bicarb 20, Cr 1.08, glu 120. General: non toxic, no distress, appears at stated age Derm: warm, dry Head: atraumatic, normocephalic, symmetric Eyes: EOMI, no lid lag, anicteric sclera Mouth: no lip lesion, mucus membranes moist Cardiovascular: Irr Irregular, no murmur Lungs: Decreased BS bilateral, no rhonchi, no rales , no accessory muscle use Ext: no gross muscle atrophy, no edema, no contractures Neuro: no focal neuro deficits Psych: Alert, oriented, appropriate affect Based on my assessment of this patient, this patient meets a high complexity level of care. Patient has an acute diagnosis of CHF exacerbation with A-Fib with RVR which po ses a threat to life or bodily function. Atrial fibrillation with RVR: Cardizem drip at 5 ml/hr. Eliquis 5 mg PO BID. Metoprolol 50 mg PO BID. Echo. Maintain K > 4 and Mg > 2. Cardiology on board. Likely CHF exacerbation: Lasix 40 mg IV QD. Strict intake and outtake. Daily weights. Echo as above. Cardiology consult. Acute kidney injury: Monitor while patient is on Lasix. Transaminitis: Venous congestion from CHF? Elevated D-Dimer: PE ruled out. Chronic conditions: anxiety disorder, asthma, dyslipidemia, GERD, hypothyroidism CODE STATUS: FULL CODE DVT Prophylaxis: Eliquis GI Prophylaxis: Designated medical POA if patient is not able to make medical decisions for themselves: I have reviewed the following technical marketing consultant notes: Cardiology note. I have reviewed the results of the following tests: BMP. I have ordered the following tests: BMP. Pending: Echo. I have discussed the care of this patient with the following independent historian: I have independently interpreted the following test below: I have discussed the management of this patient with the following physician: Objective - Vital Signs Vital signs: Vital Signs Temp 98.4 F 10/11/23 06:18 Pulse 133 H 10/11/23 07:57 Resp 22 10/11/23 07:57 BP 123/97 10/11/23 07:57 Pulse Ox 96 10/11/23 07:57 FiO2 Intake & Output 10/10/23 10/11/23 10/11/23 18:59 06:59 18:59 Intake Total 169.405 Balance 169.405 Weight 98.43 kg Intake: Intake, IV Titration 169.405 Amount Heparin Sod,Pork in 0.45% 169.405 NaCl 25,000 unit In 0.45 % NaCl 1 250ml.bag @ 10. 16 UNITS/KG/HR 10 mls/hr IV .Q24H [facility] Rx#: [id number] - Labs CBC & Chem 7: 10/11/23 02:15 10/11/23 08:26 Labs: Abnormal Lab Results - Last 24 Hours (Table) 10/10/23 10/10/23 10/10/23 Range/Units 12:26 12:26 16:35 D-Dimer 0.93 H (<0.60) mg/L FEU Chloride (98-107) mmol/L BUN 19 H (7-17) mg/dL Creatinine 1.10 H (0.52-1.04) mg/dL Glucose 132 H (74-99) mg/dL AST 50 H (14-36) U/L ALT 63 H (4-34) U/L Urine Protein Trace H (Negative) Urine Nitrite Positive H (Negative) Ur Leukocyte Esterase Moderate H (Negative) Urine WBC 32 H (0-5) /hpf Urine Bacteria Rare H (None) /hpf Urine Mucus Rare H (None) /hpf 10/11/23 Range/Units 02:15 D-Dimer (<0.60) mg/L FEU Chloride 108 H (98-107) mmol/L BUN 18 H (7-17) mg/dL Creatinine 1.14 H (0.52-1.04) mg/dL Glucose 103 H (74-99) mg/dL AST 40 H (14-36) U/L ALT 52 H (4-34) U/L Urine Protein (Negative) Urine Nitrite (Negative) Ur Leukocyte Esterase (Negative) Urine WBC (0-5) /hpf Urine Bacteria (None) /hpf Urine Mucus (None) /hpf
[2023-10-11] MEDS: DILTIAZEM 125 MG in SODIUM CHLORIDE 0.9% 100 ML IV SCH (15:16)
[2023-10-11] MEDS ORDERED: NON FORMULARY DRUG PO SCH (21:00)
[2023-10-11] MEDS: ATORVASTATIN 10 MG TAB PO SCH (21:57)
[2023-10-11] MEDS: MONTELUKAST 10 MG TAB PO SCH (21:57)
[2023-10-12] MEDS: PANTOPRAZOLE 40 MG TABLET PO SCH (06:44)
[2023-10-12] MEDS: LEVOTHYROXINE 50 MCG TAB PO SCH (06:44)
[2023-10-12] MEDS: busPIRone HCl 10 MG TAB PO SCH ×2 (08:33→20:27)
[2023-10-12] MEDS: allopurinoL 300 MG TAB PO SCH (08:33)
[2023-10-12] MEDS: LORATADINE 10 MG TAB PO SCH (08:33)
[2023-10-12] MEDS: FLUoxetine HCL 20 MG CAP PO SCH (08:33)
[2023-10-12] MEDS: METOPROLOL TARTRATE 50 MG TAB PO SCH ×3 (08:33→20:27)
[2023-10-12] MEDS: APIXABAN 5 MG TAB PO SCH ×2 (08:33→20:26)
[2023-10-12] MEDS: amLODIPine 5 MG TAB PO SCH (08:33)
[2023-10-12] MEDS: ASPIRIN 325 MG TAB PO SCH (08:33)
[2023-10-12] MEDS: DILTIAZEM 125 MG in SODIUM CHLORIDE 0.9% 100 ML IV SCH (08:34)
[2023-10-12] MEDS: FUROSEMIDE 10 MG/ML 4 ML VIAL IV SCH (08:34)
[2023-10-12] MEDS: FAMOTIDINE 20 MG TAB PO SCH (08:35)
--- NOTE | 2023-10-12 09:19 | CA ---
Transthoracic Echo Report Name: Trisha rBito Age: 78 Gender: F : 1945 Exam Date: 10/11/2023 11:18 Exam Location: [facility] Ht (in): 65 Wt (lb): 217 Ordering Physician: Wang Mix MD Attending/Referring Phys: Basket Hand Braider Gissell Steiner RDCS Procedure CPT: Indications: chf Cardiac Hx: Technical Quality: Technically difficult study Contrast 1: Definity Total Dose (mL): 2 Contrast 2: Total Dose (mL): MEASUREMENTS (Male / Female) Normal Values 2D ECHO LV Diastolic Diameter PLAX 5.1 cm 4.2 - 5.9 / 3.9 - 5.3 cm LV Systolic Diameter PLAX 4.3 cm IVS Diastolic Thickness 1.1 cm 0.6 - 1.0 / 0.6 - 0.9 cm LVPW Diastolic Thickness 1.0 cm 0.6 - 1.0 / 0.6 - 0.9 cm LV Relative Wall Thickness 0.4 RV Internal Dim ED PLAX 3.0 cm LVOT Diameter 2.2 cm LA Systolic Diameter LX 4.3 cm 3.0 - 4.0 / 2.7 - 3.8 cm LV Diastolic Volume MOD BP 79.4 cm??? 67 - 155 / 56 - 104 cm??? LV Systolic Volume MOD BP 60.3 cm??? - 58 / 19 - 49 cm??? LV Ejection Fraction MOD BP 24.1 % >= 55 % LV Cardiac Index MOD BP 880.8 cm???/min???m??? LV Diastolic Volume MOD 4C 89.6 cm??? LV Systolic Volume MOD 4C 61.7 cm??? LV Ejection Fraction MOD 4C 31.2 % LV Cardiac Index MOD 4C 1289.7 cm???/min???m??? LV Diastolic Length 4C 7.0 cm LV Systolic Length 4C 6.8 cm LV Diastolic Volume MOD 2C 53.4 cm??? LV Systolic Volume MOD 2C 38.5 cm??? LV Ejection Fraction MOD 2C 27.8 % LV Cardiac Index MOD 2C 685.3 cm???/min???m??? LV Diastolic Length 2C 5.3 cm LV Systolic Length 2C 4.4 cm LA Volume 96.9 cm??? 18 - 58 / 22 - 52 cm??? LA Volume Index 44.7 cm???/m??? 16 - 28 cm???/m??? M-MODE Aortic Root Diameter MM 3.4 cm MV E Point Septal Separation 1.0 cm AV Cusp Separation MM 2.0 cm DOPPLER AV Peak Velocity 119.6 cm/s AV Peak Gradient 5.7 mmHg MV Area PHT 5.7 cm??? MV Deceleration Time 129.3 ms TR Peak Velocity 260.2 cm/s TR Peak Gradient 27.1 mmHg Right Atrial Pressure 15.0 mmHg Pulmonary Artery Systolic Pressu 42.1 mmHg Right Ventricular Systolic Press 42.0 mmHg FINDINGS Left Ventricle Left ventricular ejection fraction is estimated at 25-30 %. Left ventricular wall thickness normal. Mildly increased septal wall thickness. Moderately increased left ventricular systolic volume. Severely decreased left ventricular ejection fraction. Right Ventricle Normal right ventricular size. Right ventricular systolic pressure estimated at 42 mm hg. Mild pulmonary hypertension. Right Atrium Mild right atrial dilatation. Left Atrium Mildly increased left atrial diameter. Severely increased left atrial volume. Moderately increased left atrial area. Mitral Valve Mitral valve thickened. Mild mitral annular calcification. Mild mitral regurgitation. Aortic Valve Trileaflet aortic valve. Aortic valve sclerosis. Tricuspid Valve Structurally normal tricuspid valve. Moderate tricuspid regurgitation. Pulmonic Valve Pulmonic valve not well visualized. Pericardium Small pericardial effusion by posterior wall Aorta Normal size aortic root and proximal ascending aorta. CONCLUSIONS Technically difficult study. Left ventricle is enlarged there is global decrease in contractility estimated ejection fraction of 25%. Both atria are enlarged. Moderate pulmonary hypertension mild to moderate mitral and tricuspid regurgitation small pericardial effusion Previewed by: Dr. Christopher Jacobson MD (Electronically Signed) Final Date: 12 October 2023 09:17
[2023-10-12 09:24] LABS: African American GFR (CKD) 41 (>60 ml/min/1.73 sqM); Anion Gap 15 mmol/L; Blood Urea Nitrogen 26 mg/dL (7-17); Carbon Dioxide 22 mmol/L (22-30); Chloride 105 mmol/L (98-107); Glucose 174 mg/dL (74-99); Non-African American GFR(CKD) 36 (>60 ml/min/1.73 sqM); Potassium 4.3 mmol/L (3.5-5.1); Sodium 142 mmol/L (137-145)
--- NOTE | 2023-10-12 12:00 | P.PN ---
Subjective Progress Note Date: 10/12/23 Consult reason: atrial fibrillation History of present illness: History of present illness: This is a 78-year-old female patient with past medical history of anxiety, asthma, dyslipidemia, gastroesophageal reflux disease, hypothyroidism. We have been asked to evaluate the patient for A. fib with RVR. Patient presented to the hospital due to shortness of breath at about going on for a few days, dyspnea with exertion and difficulty laying flat. Patient states that she has been feeling quite weak and tired and couldn't catch her breath. She denies any lower extremity edema. It has been going on since Sunday almost a week. She does not follow with a card stripper. She is seen today in the emergency center waiting for a bed on the cardiac stepdown unit. Patient is status post IV Lasix 20 mg, Cardizem bolus of 5 mg and a drip at 5 mg per hour and she has been started on heparin drip. EKG atrial fibrillation with ventricular rate of 147 bpm. Telemetry is atrial fibrillation 128 bpm. CTA of the chest negative for acute pulmonary embolism. Findings consistent with CHF exacerbation, cardiomegaly with small bilateral pleural effusions. CBC normal. INR 1. Dimer 0.93. Sodium 141, potassium 3.9, BUN 18 creatinine 1.14. Troponin negative 3. Magnesium 2.0. AST 40, ALT 52, alkaline phosphatase 115. ProBNP 7660. TSH 4.23. Urinalysis with leukoesterase moderate, wbc's 30 to nitrate positive. Home cardiac medications: Amlodipine 10 mg daily, losartan/hydrochlorothiazide 13519 milligrams daily, simvastatin 20 mg daily. 10/12 Telemetry is atrial fibrillation with controlled rate. Heart rate is in the 90s to 109, blood pressure 110/92, pulse ox 97% on room air. Echocardiogram reveals EF of 25%. Moderate pulmonary hypertension, [id number] mitral and tricuspid regurgitation, small pericardial effusion. Patient has been continued on Cardizem drip at 5 mg per hour, metoprolol 50 mg 3 times daily. BUN 26 creatinine 1.42. Physical examination: Gen: This is a 78-year-old female appears to be in no acute distress. VS: reviewed HEENT: Head is atraumatic, normocephalic. Pupils equal, round. Sclerae is anict severiano. NECK: Supple. No JVD. LUNGS: Clear to auscultation. No wheezes or rhonchi. No intercostal r etractions. HEART: Irregular rate and rhythm. No murmur. ABDOMEN: Soft No tenderness. EXTREMITIES: No pedal edema. No calf tenderness. NEUROLOGICAL: Patient is awake, alert and oriented x3. Assessment: New onset paroxysmal atrial fibrillation with RVR History of anxiety History of asthma Dyslipidemia Gastroesophageal reflux disease Hypothyroidism Plan: Continue patient on eliquis 5 mg twice daily Continue Cardizem 5 mg per hour and plan to discontinue at 10 AM tomorrow Discontinue amlodipine Increase metoprolol tartrate 50 mg 3 times daily. Tomorrow, increase metoprolol tartrate to 100 mg twice daily. Nurse practitioner note has been reviewed, I agree with documented findings and plan of care. Patient was seen and examined. Objective - Vital Signs Vital signs: Vital Signs Temp 97.7 F 10/12/23 04:00 Pulse 91 10/12/23 04:00 Resp 18 10/12/23 04:00 BP 110/92 10/12/23 04:00 Pulse Ox 97 10/12/23 04:00 FiO2 Intake & Output 10/11/23 10/12/23 10/12/23 18:59 06:59 18:59 Intake Total 243 180 Balance 243 180 Weight 96.9 kg Intake: Intake, IV Titration 125 Amount Diltiazem 125 mg In 125 Sodium Chloride 0.9% 100 ml @ 5 MG/HR 5 mls/hr IV .Q24H [facility] Rx#:[id number] Oral 118 180 - Labs CBC & Chem 7: 10/11/23 02:15 10/12/23 08:22 Labs: Abnormal Lab Results - Last 24 Hours (Table) 10/11/23 10/12/23 Range/Units 08:26 08:22 Chloride 108 H (98-107) mmol/L Carbon Dioxide 20 L (22-30) mmol/L BUN 26 H (7-17) mg/dL Creatinine 1.08 H 1.42 H (0.52-1.04) mg/dL Glucose 120 H 174 H (74-99) mg/dL
--- NOTE | 2023-10-12 12:18 | P.PN ---
Subjective Progress Note Date: 10/12/23 78-year-old female with PMH of anxiety disorder, asthma, dyslipidemia, GERD, hypothyroidism presents to the ED for shortness of breath. Shortness of breath has been ongoing for the past 3-4 days. Worsened with exertion. She reports difficulty laying flat. No lower extremity edema. No history of CAD or CHF. In the ED, she underwent extensive evaluation. BP 138/89, HR 106, T 98F, 96% on RA. CBC unremarkable. Coagulation panel within normal limits. D-dimer 0.93. CMP BUN 19, Cr 1.10, glu 132, AST 50, ALT 63. Troponin 0.016. BNP 7660. TSH 4.23. EKG A-Fib with RVR rate 147 Chest CTA no PE, cardiomegaly, small bilateral pleural effusion. 10/11 Patient was seen and examined. Currently on Lasix 40 mg IV QD. Cardiology consulted, heparin drip switched to Eliquis, started on Metoprolol 50 mg PO BID, maintained on Cardizem drip at 5 mg/hr. BMP Cl 108, bicarb 20, Cr 1.08, glu 120. 10/12 Patient was seen and examined. Slight improvement in breathing. Continued on Lasix IV, Metoprolol increased to 50 mg PO TID, Eliquis PO. Cardizem drip running at 5 mg/hr. Inaccurate intake/outtake documented. Weight 98.43-96.9 kg since admission. Echocardiogram shows EF 25% with mod pulmonary HTN and mild-mod MR/TR, small pericardial effusion. BMP shows BUN 26, Cr 1.42, glu 174. General: non toxic, no distress, appears at stated age Derm: warm, dry Head: atraumatic, normocephalic, symmetric Eyes: EOMI, no lid lag, anicteric sclera Mouth: no lip lesion, mucus membranes moist Cardiovascular: Irr Irregular, no murmur Lungs: Decreased BS bilateral, no rhonchi, no rales , no accessory muscle use Ext: no gross muscle atrophy, no edema, no contractures Neuro: no focal neuro deficits Psych: Alert, oriented, appropriate affect Based on my assessment of this patient, this patient meets a high complexity level of care. Patient has an acute diagnosis of CHF exacerbation with A-Fib with RVR which poses a threat to life or bodily function. Atrial fibrillation with RVR: Eliquis 5 mg PO BID. Metoprolol 50 mg PO TID. Continue Cardizem drip at 5mg/hr. Echo as above. Maintain K > 4 and Mg > 2. Cardiology on board. Systolic CHF exacerbation: Lasix 40 mg IV QD. Beta marce as above. Would benefit from ACEi and Aldactone. Wound benefit from cardiac cath. Strict intake and outtake. Daily weights. Echo as above. Cardiology consult. Acute kidney injury: Monitor while patient is on Lasix. Transaminitis: Venous congestion from CHF? Elevated D-Dimer: PE ruled out. Chronic conditions: anxiety disorder, asthma, dyslipidemia, GERD, hypothyroidism CODE STATUS: FULL CODE DVT Prophylaxis: Eliquis GI Prophylaxis: Pepcid Designated medical POA if patient is not able to make medical decisions for themselves: I have reviewed the following accounting policy consultant notes: Cardiology note. I have reviewed the results of the following tests: BMP. Echo. I have ordered the following tests: BMP. I have discussed the care of this patient with the following independent historian: I have independently interpreted the following test below: I have discussed the management of this patient with the following physician: Objective - Vital Signs Vital signs: Vital Signs Temp 97.7 F 10/12/23 04:00 Pulse 91 10/12/23 04:00 Resp 18 10/12/23 04:00 BP 110/92 10/12/23 04:00 Pulse Ox 97 10/12/23 04:00 FiO2 Intake & Output 10/11/23 10/12/23 10/12/23 18:59 06:59 18:59 Intake Total 118 Balance 118 Weight 96.9 kg Intake: Oral 118 - Labs CBC & Chem 7: 10/11/23 02:15 10/12/23 08:22 Labs: Abnormal Lab Results - Last 24 Hours (Table) 10/11/23 Range/Units 08:26 Chloride 108 H (98-107) mmol/L Carbon Dioxide 20 L (22-30) mmol/L Creatinine 1.08 H (0.52-1.04) mg/dL Glucose 120 H (74-99) mg/dL
[2023-10-12] MEDS: ATORVASTATIN 10 MG TAB PO SCH (20:27)
[2023-10-12] MEDS: MONTELUKAST 10 MG TAB PO SCH (20:27)
[2023-10-13] MEDS: DILTIAZEM 125 MG in SODIUM CHLORIDE 0.9% 100 ML IV SCH (04:00)
[2023-10-13] MEDS: LEVOTHYROXINE 50 MCG TAB PO SCH (06:39)
[2023-10-13] MEDS: PANTOPRAZOLE 40 MG TABLET PO SCH (06:39)
[2023-10-13] MEDS: FUROSEMIDE 10 MG/ML 4 ML VIAL IV SCH (08:42)
[2023-10-13] MEDS: allopurinoL 300 MG TAB PO SCH (08:43)
[2023-10-13] MEDS: FAMOTIDINE 20 MG TAB PO SCH (08:43)
[2023-10-13] MEDS: APIXABAN 5 MG TAB PO SCH ×2 (08:43→20:19)
[2023-10-13] MEDS: LORATADINE 10 MG TAB PO SCH (08:43)
[2023-10-13] MEDS: ASPIRIN 81 MG PO SCH (08:43)
[2023-10-13] MEDS: busPIRone HCl 10 MG TAB PO SCH ×2 (08:43→20:19)
[2023-10-13] MEDS: FLUoxetine HCL 20 MG CAP PO SCH (08:43)
[2023-10-13] MEDS: METOPROLOL TARTRATE 50 MG TAB PO SCH ×2 (08:44→20:19)
[2023-10-13 09:23] LABS: African American GFR (CKD) 44 (>60 ml/min/1.73 sqM); Anion Gap 15 mmol/L; Blood Urea Nitrogen 37 mg/dL (7-17); Calcium 8.9 mg/dL (8.4-10.2); Carbon Dioxide 21 mmol/L (22-30); Chloride 104 mmol/L (98-107); Glucose 349 mg/dL (74-99); Non-African American GFR(CKD) 38 (>60 ml/min/1.73 sqM); Potassium 3.8 mmol/L (3.5-5.1); Sodium 140 mmol/L (137-145)
[2023-10-13] MEDS ORDERED: SODIUM CHLORIDE 0.9% 1,000 ML IV SCH (11:30)
[2023-10-13] MEDS: AMIODARONE 200 MG TAB PO SCH ×2 (11:35→20:19)
--- NOTE | 2023-10-13 13:05 | P.PN ---
Subjective Progress Note Date: 10/13/23 The patient is a 78-year-old female who presented to the hospital with shortness of breath. She was found to be in A. fib with RVR. Patient was started on anticoagulation and Cardizem drip. Over the last 24 hours her heart rates have improved with high-dose beta blockers and therefore her Cardizem drip has been discontinued. Unfortunately she remains extremely symptomatic while in atrial fibrillation despite being rate controlled. The patient attempted to walk in the hallway with Dr. Garibay, however had to stop after walking approximately 20 feet in order to catch her breath. He recommends starting oral antiarrhythmic therapy and proceeding with cardioversion on Sunday. The patient states she does have old dizziness and lightheadedness upon standing. She is short of breath with minimal exertion. No chest pain. GENERAL: Well-appearing, well-nourished and in no acute distress. NECK: Supple without JVD or thyromegaly. LUNGS: Breath sounds diminished to auscultation bilaterally. Respiration equal and unlabored. No wheezes, rales or rhonchi. HEART: Irregular rate and rhythm without murmurs, rubs or gallops. S1 and S2 heard. EXTREMITIES: Normal range of motion, no edema. No clubbing or cyanosis. Peripheral pulses intact and strong. TELEMETRY: Rate controlled atrial fibrillation IMPRESSION: New onset paroxysmal atrial fibrillation with RVR New onset cardiomyopathy, EF 25% History of anxiety History of asthma Dyslipidemia Gastroesophageal reflux disease Hypothyroidism PLAN: Add oral amiodarone Increase statin as she has coronary calcifications noted on computed tomography scan of the chest Nothing by mouth after midnight on Sunday REJI and cardioversion Sunday I am dictating on behalf of Dr Chet Garibay's history/physical and assessment/plan. Objective - Vital Signs Vital signs: Vital Signs Temp 98.4 F 10/13/23 08:35 Pulse 84 10/13/23 08:35 Resp 18 10/13/23 08:35 BP 118/61 10/13/23 08:35 Pulse Ox 96 10/13/23 08:35 FiO2 Intake & Output 10/12/23 10/13/23 10/13/23 18:59 06:59 18:59 Intake Total 540 337.167 Balance 540 337.167 Weight 96.2 kg Intake: Intake, IV Titration 97.167 Amount Diltiazem 125 mg In 97.167 Sodium Chloride 0.9% 100 ml @ 5 MG/HR 5 mls/hr IV .Q24H [facility] Rx#:[id number] Oral 540 240 - Labs CBC & Chem 7: 10/11/23 02:15 10/13/23 08:38 Labs: Abnormal Lab Results - Last 24 Hours (Table) 10/13/23 Range/Units 08:38 Carbon Dioxide 21 L (22-30) mmol/L BUN 37 H (7-17) mg/dL Creatinine 1.33 H (0.52-1.04) mg/dL Glucose 349 H (74-99) mg/dL
--- NOTE | 2023-10-13 14:13 | P.PN ---
Subjective Progress Note Date: 10/13/23 78-year-old female with PMH of anxiety disorder, asthma, dyslipidemia, GERD, hypothyroidism presents to the ED for shortness of breath. Shortness of breath has been ongoing for the past 3-4 days. Worsened with exertion. She reports difficulty laying flat. No lower extremity edema. No history of CAD or CHF. In the ED, she underwent extensive evaluation. BP 138/89, HR 106, T 98F, 96% on RA. CBC unremarkable. Coagulation panel within normal limits. D-dimer 0.93. CMP BUN 19, Cr 1.10, glu 132, AST 50, ALT 63. Troponin 0.016. BNP 7660. TSH 4.23. EKG A-Fib with RVR rate 147 Chest CTA no PE, cardiomegaly, small bilateral pleural effusion. 10/11 Patient was seen and examined. Currently on Lasix 40 mg IV QD. Cardiology consulted, heparin drip switched to Eliquis, started on Metoprolol 50 mg PO BID, maintained on Cardizem drip at 5 mg/hr. BMP Cl 108, bicarb 20, Cr 1.08, glu 120. 10/12 Patient was seen and examined. Slight improvement in breathing. Continued on Lasix IV, Metoprolol increased to 50 mg PO TID, Eliquis PO. Cardizem drip running at 5 mg/hr. Inaccurate intake/outtake documented. Weight 98.43-96.9 kg since admission. Echocardiogram shows EF 25% with mod pulmonary HTN and mild-mod MR/TR, small pericardial effusion. BMP shows BUN 26, Cr 1.42, glu 174. 10/13 Patient was seen and examined. Persistent SOB with ambulation. Discussed with Dr. Garibay, switched lasix IV to PO, start Amiodarone 200 mg PO BID, plans for REJI and cardioversion on Sunday. BMP bicarb 21, BUN 37, Cr 1.33, glu 349. General: non toxic, no distress, appears at stated age Derm: warm, dry Head: atraumatic, normocephalic, symmetric Eyes: EOMI, no lid lag, anicteric sclera Mouth: no lip lesion, mucus membranes moist Cardiovascular: Irr Irregular, no murmur Lungs: Decreased BS bilateral, no rhonchi, no rales , no accessory muscle use Ext: no gross muscle atrophy, no edema, no contractures Neuro: no focal neuro deficits Psych: Alert, oriented, appropriate affect Based on my assessment of this patient, this patient meets a moderate complexity level of care. Patient has an acute diagnosis of CHF exacerbation with A-Fib with RVR which poses a threat to life or bodily function. Atrial fibrillation with RVR: Eliquis 5 mg PO BID. Metoprolol 50 mg PO TID. Amiodarone 200 mg PO BID. DC Cardizem drip. Echo as above. Maintain K > 4 and Mg > 2. Cardiology on board. Systolic CHF exacerbation: Lasix 40 mg PO QD. Beta marce as above. Would benefit from ACEi and Aldactone. Outpatient cardiac cath per Dr. Garibay. Strict intake and outtake. Daily weights. Echo as above. Cardiology consult. Acute kidney injury: Monitor while patient is on Lasix. Transaminitis: Venous congestion from CHF? Elevated D-Dimer: PE ruled out. Chronic conditions: anxiety disorder, asthma, dyslipidemia, GERD, hypothyroidism CODE STATUS: FULL CODE DVT Prophylaxis: Eliquis GI Prophylaxis: Pepcid Designated medical POA if patient is not able to make medical decisions for themselves: I have reviewed the following retirement consultant notes: Cardiology note. I have reviewed the results of the following tests: BMP. I have ordered the following tests: BMP. I have discussed the care of this patient with the following independent historian: I have independently interpreted the following test below: I have discussed the management of this patient with the following physician: Discussed with Dr. Garibay Objective - Vital Signs Vital signs: Vital Signs Temp 98.4 F 10/13/23 08:35 Pulse 77 10/13/23 11:35 Resp 17 10/13/23 11:35 BP 104/57 10/13/23 11:35 Pulse Ox 98 10/13/23 11:35 FiO2 Intake & Output 10/12/23 10/13/23 10/13/23 18:59 06:59 18:59 Intake Total 540 337.167 Balance 540 337.167 Weight 96.2 kg Intake: Intake, IV Titration 97.167 Amount Diltiazem 125 mg In 97.167 Sodium Chloride 0.9% 100 ml @ 5 MG/HR 5 mls/hr IV .Q24H [facility] Rx#:[id number] Oral 540 240 - Labs CBC & Chem 7: 10/11/23 02:15 10/13/23 08:38 Labs: Abnormal Lab Results - Last 24 Hours (Table) 10/13/23 Range/Units 08:38 Carbon Dioxide 21 L (22-30) mmol/L BUN 37 H (7-17) mg/dL Creatinine 1.33 H (0.52-1.04) mg/dL Glucose 349 H (74-99) mg/dL
[2023-10-13] MEDS: MONTELUKAST 10 MG TAB PO SCH (20:19)
[2023-10-13] MEDS: ATORVASTATIN 20 MG TAB PO SCH (20:19)
[2023-10-13 20:34] LABS: Glucose,Whole Blood 153 mg/dL (70-110)
[2023-10-13] MEDS ORDERED: DEXTROSE 50% SYRINGE 50 ML IVP PRN ×2 (21:59)
[2023-10-14] MEDS: ALPRAZolam 0.25 MG TAB PO PRN ×2 (01:01→20:36)
[2023-10-14 06:13] LABS: Glucose,Whole Blood 150 mg/dL (70-110)
[2023-10-14] MEDS: INSULIN ASPART (NovoLOG) 100 UNIT/ML VIAL SQ SCH ×4 (06:17→20:29)
[2023-10-14] MEDS: LEVOTHYROXINE 50 MCG TAB PO SCH (06:20)
[2023-10-14] MEDS: PANTOPRAZOLE 40 MG TABLET PO SCH (06:21)
[2023-10-14] MEDS: METOPROLOL TARTRATE 50 MG TAB PO SCH ×2 (08:42→20:36)
[2023-10-14] MEDS: FUROSEMIDE 40 MG TAB PO SCH (08:42)
[2023-10-14] MEDS: FLUoxetine HCL 20 MG CAP PO SCH (08:42)
[2023-10-14] MEDS: ASPIRIN 81 MG PO SCH (08:42)
[2023-10-14] MEDS: FAMOTIDINE 20 MG TAB PO SCH (08:43)
[2023-10-14] MEDS: allopurinoL 300 MG TAB PO SCH (08:43)
[2023-10-14] MEDS: AMIODARONE 200 MG TAB PO SCH ×2 (08:43→20:36)
[2023-10-14] MEDS: APIXABAN 5 MG TAB PO SCH ×2 (08:43→20:36)
[2023-10-14] MEDS: LORATADINE 10 MG TAB PO SCH (08:43)
[2023-10-14] MEDS: busPIRone HCl 10 MG TAB PO SCH ×2 (08:43→20:36)
--- NOTE | 2023-10-14 11:45 | P.PN ---
Subjective Progress Note Date: 10/14/23 78-year-old female with PMH of anxiety disorder, asthma, dyslipidemia, GERD, hypothyroidism presents to the ED for shortness of breath. Shortness of breath has been ongoing for the past 3-4 days. Worsened with exertion. She reports difficulty laying flat. No lower extremity edema. No history of CAD or CHF. In the ED, she underwent extensive evaluation. BP 138/89, HR 106, T 98F, 96% on RA. CBC unremarkable. Coagulation panel within normal limits. D-dimer 0.93. CMP BUN 19, Cr 1.10, glu 132, AST 50, ALT 63. Troponin 0.016. BNP 7660. TSH 4.23. EKG A-Fib with RVR rate 147 Chest CTA no PE, cardiomegaly, small bilateral pleural effusion. 10/11 Patient was seen and examined. Currently on Lasix 40 mg IV QD. Cardiology consulted, heparin drip switched to Eliquis, started on Metoprolol 50 mg PO BID, maintained on Cardizem drip at 5 mg/hr. BMP Cl 108, bicarb 20, Cr 1.08, glu 120. 10/12 Patient was seen and examined. Slight improvement in breathing. Continued on Lasix IV, Metoprolol increased to 50 mg PO TID, Eliquis PO. Cardizem drip running at 5 mg/hr. Inaccurate intake/outtake documented. Weight 98.43-96.9 kg since admission. Echocardiogram shows EF 25% with mod pulmonary HTN and mild-mod MR/TR, small pericardial effusion. BMP shows BUN 26, Cr 1.42, glu 174. 10/13 Patient was seen and examined. Persistent SOB with ambulation. Discussed with Dr. Garibay, switched lasix IV to PO, start Amiodarone 200 mg PO BID, plans for REJI and cardioversion on Sunday. BMP bicarb 21, BUN 37, Cr 1.33, glu 349. 10/14 Patient was seen and examined. Clinical condition unchanged. Plans for REJI with cardioversion tomorrow. General: non toxic, no distress, appears at stated age Derm: warm, dry Head: atraumatic, normocephalic, symmetric Eyes: EOMI, no lid lag, anicteric sclera Mouth: no lip lesion, mucus membranes moist Cardiovascular: Irr Irregular, no murmur Lungs: Decreased BS bilateral, no rhonchi, no rales , no accessory muscle use Ext: no gross muscle atrophy, no edema, no contractures Neuro: no focal neuro deficits Psych: Alert, oriented, appropriate affect Based on my assessment of this patient, this patient meets a moderate complexity level of care. Patient has an acute diagnosis of CHF exacerbation with A-Fib with RVR which poses a threat to life or bodily function. Atrial fibrillation with RVR: Eliquis 5 mg PO BID. Metoprolol 100 mg PO BID. Amiodarone 200 mg PO BID. Echo as above. Maintain K > 4 and Mg > 2. Cardiology on board. Systolic CHF exacerbation: Lasix 40 mg PO QD. Beta marce as above. Would benefit from ACEi and Aldactone when renal function improved. Outpatient ischemic workup per Dr. Garibay. Strict intake and outtake. Daily weights. Echo as above. Cardiology on board. Acute kidney injury: Monitor while patient is on Lasix. Transaminitis: Venous congestion from CHF? Elevated D-Dimer: PE ruled out. Chronic conditions: anxiety disorder, asthma, dyslipidemia, GERD, hypothyroidism CODE STATUS: FULL CODE DVT Prophylaxis: Eliquis GI Prophylaxis: Pepcid Designated medical POA if patient is not able to make medical decisions for themselves: I have reviewed the following crop consultant notes: Cardiology note. I have reviewed the results of the following tests: BMP. I have ordered the following tests: BMP. I have discussed the care of this patient with the following independent historian: I have independently interpreted the following test below: I have discussed the management of this patient with the following physician: Objective - Vital Signs Vital signs: Vital Signs Temp 98.0 F 10/13/23 20:00 Pulse 82 10/14/23 04:00 Resp 20 10/14/23 04:00 BP 121/60 10/14/23 04:00 Pulse Ox 96 10/14/23 04:00 FiO2 Intake & Output 10/13/23 10/14/23 10/14/23 18:59 06:59 18:59 Intake Total 540 Balance 540 Weight 97.1 kg Intake: Oral 540 Other: Voiding Method Toilet - Labs CBC & Chem 7: 10/11/23 02:15 10/13/23 08:38 Labs: Abnormal Lab Results - Last 24 Hours (Table) 10/13/23 10/13/23 10/14/23 Range/Units 08:38 20:25 06:11 Carbon Dioxide 21 L (22-30) mmol/L BUN 37 H (7-17) mg/dL Creatinine 1.33 H (0.52-1.04) mg/dL Glucose 349 H (74-99) mg/dL POC Glucose (mg/dL) 153 H 150 H (70-110) mg/dL
[2023-10-14 12:04] LABS: Glucose,Whole Blood 150 mg/dL (70-110)
--- NOTE | 2023-10-14 13:40 | P.PN ---
Subjective Progress Note Date: 10/14/23 The patient is a 78-year-old female who presented to the hospital with shortness of breath. She was found to be in A. fib with RVR. Patient was started on anticoagulation and Cardizem drip. Over the last 24 hours her heart rates have improved with high-dose beta blockers and therefore her Cardizem drip has been discontinued. Unfortunately she remains extremely symptomatic while in atrial fibrillation despite being rate controlled. Oral amiodarone was started within the last 24 hours and we plan on proceeding with REJI and cardioversion Sunday or Sunday of this week. The patient states she does have old dizziness and lightheadedness upon standing. She is short of breath with minimal exertion. No chest pain. GENERAL: Well-appearing, well-nourished and in no acute distress. NECK: Supple without JVD or thyromegaly. LUNGS: Breath sounds diminished to auscultation bilaterally. Respiration equal and unlabored. No wheezes, rales or rhonchi. HEART: Irregular rate and rhythm without murmurs, rubs or gallops. S1 and S2 heard. EXTREMITIES: Normal range of motion, no edema. No clubbing or cyanosis. Peripheral pulses intact and strong. TELEMETRY: Rate controlled atrial fibrillation IMPRESSION: New onset paroxysmal atrial fibrillation with RVR New onset cardiomyopathy, EF 25% History of anxiety History of asthma Dyslipidemia Gastroesophageal reflux disease Hypothyroidism PLAN: Continue oral amiodarone as she remains rate controlled Nothing by mouth after midnight on Sunday REJI and cardioversion Sunday or Sunday with Dr Garibay I am dictating on behalf of Dr Chet Garibay's history/physical and assessment/plan. Objective - Vital Signs Vital signs: Vital Signs Temp 97.6 F 10/14/23 08:35 Pulse 81 10/14/23 12:05 Resp 17 10/14/23 12:05 BP 118/84 10/14/23 12:05 Pulse Ox 99 10/14/23 12:05 FiO2 Intake & Output 10/13/23 10/14/23 10/14/23 18:59 06:59 18:59 Intake Total 540 118 Balance 540 118 Weight 97.1 kg Intake: Oral 540 118 Other: Voiding Method Toilet Toilet - Labs CBC & Chem 7: 10/11/23 02:15 01/06/24 08:38 Labs: Abnormal Lab Results - Last 24 Hours (Table) 10/13/23 10/14/23 10/14/23 Range/Units 20:25 06:11 12:03 POC Glucose (mg/dL) 153 H 150 H 150 H (70-110) mg/dL
[2023-10-14 16:20] LABS: Glucose,Whole Blood 172 mg/dL (70-110)
[2023-10-14] MEDS ORDERED: SODIUM CHLORIDE 0.9% 1,000 ML IV SCH (18:00)
[2023-10-14 20:12] LABS: Glucose,Whole Blood 139 mg/dL (70-110)
[2023-10-14] MEDS: MONTELUKAST 10 MG TAB PO SCH (20:36)
[2023-10-14] MEDS: ATORVASTATIN 20 MG TAB PO SCH (20:36)
[2023-10-15] MEDS: INSULIN ASPART (NovoLOG) 100 UNIT/ML VIAL SQ SCH ×4 (02:25→20:30)
[2023-10-15] MEDS: LEVOTHYROXINE 50 MCG TAB PO SCH (02:25)
[2023-10-15] MEDS: PANTOPRAZOLE 40 MG TABLET PO SCH (02:26)
[2023-10-15 05:56] LABS: Glucose,Whole Blood 145 mg/dL (70-110)
[2023-10-15] MEDS: METOPROLOL TARTRATE 50 MG TAB PO SCH ×2 (09:10→20:29)
[2023-10-15] MEDS: FLUoxetine HCL 20 MG CAP PO SCH (09:10)
[2023-10-15] MEDS: FAMOTIDINE 20 MG TAB PO SCH (09:10)
[2023-10-15] MEDS: LORATADINE 10 MG TAB PO SCH (09:10)
[2023-10-15] MEDS: busPIRone HCl 10 MG TAB PO SCH ×2 (09:10→20:29)
[2023-10-15] MEDS: AMIODARONE 200 MG TAB PO SCH ×2 (09:10→20:29)
[2023-10-15] MEDS: ASPIRIN 81 MG PO SCH (09:10)
[2023-10-15] MEDS: FUROSEMIDE 40 MG TAB PO SCH (09:10)
[2023-10-15] MEDS: APIXABAN 5 MG TAB PO SCH ×2 (09:10→20:29)
[2023-10-15] MEDS: allopurinoL 300 MG TAB PO SCH (09:11)
[2023-10-15 09:26] LABS: HCT 43.8 % (34.0-46.0); HGB 13.7 gm/dL (11.4-16.0); Hypochromasia Moderate; MCH 30.2 pg (25.0-35.0); MCHC 31.3 g/dL (31.0-37.0); MCV 96.6 fL (80.0-100.0); Mean Platelet Volume 9.5; Platelet Count 218 k/uL (150-450); RBC 4.54 m/uL (3.80-5.40); RDW 13.9 % (11.5-15.5); WBC 6.9 k/uL (3.8-10.6)
[2023-10-15 10:45] LABS: African American GFR (CKD) 46 (>60 ml/min/1.73 sqM); Anion Gap 13 mmol/L; Blood Urea Nitrogen 42 mg/dL (7-17); Calcium 9.3 mg/dL (8.4-10.2); Carbon Dioxide 19 mmol/L (22-30); Chloride 108 mmol/L (98-107); Glucose 118 mg/dL (74-99); Magnesium 1.9 mg/dL (1.6-2.3); Non-African American GFR(CKD) 40 (>60 ml/min/1.73 sqM); Sodium 140 mmol/L (137-145)
[2023-10-15 10:46] LABS: Potassium 4.5 mmol/L (3.5-5.1)
[2023-10-15] MEDS ORDERED: IV FLUID CONTINUATION 1,000 ML IV ONE ×2 (11:16→17:43)
[2023-10-15] MEDS ORDERED: SODIUM CHLORIDE 0.9% 500 ML 500 ML IV ONE ×2 (11:16→17:43)
--- NOTE | 2023-10-15 11:18 | P.PN ---
Subjective Progress Note Date: 10/15/23 78-year-old female with PMH of anxiety disorder, asthma, dyslipidemia, GERD, hypothyroidism presents to the ED for shortness of breath. Shortness of breath has been ongoing for the past 3-4 days. Worsened with exertion. She reports difficulty laying flat. No lower extremity edema. No history of CAD or CHF. In the ED, she underwent extensive evaluation. BP 138/89, HR 106, T 98F, 96% on RA. CBC unremarkable. Coagulation panel within normal limits. D-dimer 0.93. CMP BUN 19, Cr 1.10, glu 132, AST 50, ALT 63. Troponin 0.016. BNP 7660. TSH 4.23. EKG A-Fib with RVR rate 147 Chest CTA no PE, cardiomegaly, small bilateral pleural effusion. Patient was admitted for CHF exacerbation and A-Fib with RVR. Started on Lasix 40 mg IV QD from 10/10-10/13, switched to PO. Started on Cardizem drip from 10/10-10/13, Cardiology added Amiodarone and titrated Metoprolol. Echocardiogram showed EF 25% with mod pulmonary HTN and mild-mod MR/TR, small pericardial effusion. Patient continued to feel short of breath with little exertion, discussed with Dr. Garibay, ischemic workup outpatient when renal function stable, plans for REJI and cardioversion on 10/15. 10/15 Patient was seen and examined. Still continues to reports SOB with exertion. Plans for REJI with cardioversion today with Dr. Garibay. CBC unremarkable. BMP Cl 108, bicarb 19, BUN 42, Cr 1.3, glu 118. General: non toxic, no distress, appears at stated age Derm: warm, dry Head: atraumatic, normocephalic, symmetric Eyes: EOMI, no lid lag, anicteric sclera Mouth: no lip lesion, mucus membranes moist Cardiovascular: Irr Irregular, no murmur Lungs: Decreased BS bilateral, no rhonchi, no rales , no accessory muscle use Ext: no gross muscle atrophy, no edema, no contractures Neuro: no focal neuro deficits Psych: Alert, oriented, appropriate affect Based on my assessment of this patient, this patient meets a moderate complexity level of care. Patient has an acute diagnosis of CHF exacerbation with A-Fib with RVR which poses a threat to life or bodily function. Atrial fibrillation with RVR: Eliquis 5 mg PO BID. Metoprolol 100 mg PO BID. Amiodarone 200 mg PO BID. Echo as above. Maintain K > 4 and Mg > 2. Cardiology on board, plans for REJI and cardioversion today. Systolic CHF exacerbation: Lasix 40 mg PO QD. Beta marce as above. Would benefit from ACEi and Aldactone when renal function improved. Outpatient ischemic workup per Dr. Garibay. Strict intake and outtake. Daily weights. Echo as above. Acute kidney injury: Due to forced diuresis. Monitor while patient is on Lasix. Transaminitis: Venous congestion from CHF? Elevated D-Dimer: PE ruled out. Chronic conditions: anxiety disorder, asthma, dyslipidemia, GERD, hypothyroidism CODE STATUS: FULL CODE DVT Prophylaxis: Eliquis GI Prophylaxis: Pepcid Designated medical POA if patient is not able to make medical decisions for themselves: I have reviewed the following sales consultant residential manager notes: Cardiology note. I have reviewed the results of the following tests: CBC, BMP. I have ordered the following tests: BMP. I have discussed the care of this patient with the following independent istorian: I have independently interpreted the following test below: I have discussed the management of this patient with the following physician: Objective - Vital Signs Vital signs: Vital Signs Temp 97.4 F L 10/15/23 08:00 Pulse 89 10/15/23 08:00 Resp 18 10/15/23 08:00 BP 120/76 10/15/23 08:00 Pulse Ox 97 10/15/23 08:00 FiO2 Intake & Output 10/14/23 10/15/23 10/15/23 18:59 06:59 18:59 Intake Total 295 540 Balance 295 540 Intake: Oral 295 540 Other: Voiding Method Toilet Toilet Toilet - Labs CBC & Chem 7: 10/15/23 07:19 10/15/23 07:19 Labs: Abnormal Lab Results - Last 24 Hours (Table) 10/14/23 10/14/23 10/14/23 Range/Units 12:03 16:19 20:09 Chloride (98-107) mmol/L Carbon Dioxide (22-30) mmol/L BUN (7-17) mg/dL Creatinine (0.52-1.04) mg/dL Glucose (74-99) mg/dL POC Glucose (mg/dL) 150 H 172 H 139 H (70-110) mg/dL 10/15/23 10/15/23 Range/Units 05:54 07:19 Chloride 108 H (98-107) mmol/L Carbon Dioxide 19 L (22-30) mmol/L BUN 42 H (7-17) mg/dL Creatinine 1.30 H (0.52-1.04) mg/dL Glucose 118 H (74-99) mg/dL POC Glucose (mg/dL) 145 H (70-110) mg/dL
[2023-10-15] MEDS ORDERED: fentaNYL (PF) 50 MCG/ML 2 ML AMP ONE (11:22)
[2023-10-15] MEDS ORDERED: LIDOCAINE 2% GLYDO JELLY 11 ML APPL MUCOUS MEM STA (11:43)
[2023-10-15] MEDS ORDERED: fentaNYL (PF) 50 MCG/1 ML VIAL IVP ONE (11:53)
[2023-10-15] MEDS ORDERED: MIDAZOLAM 2 MG/2 ML VIAL IVP ONE ×2 (11:53→11:55)
[2023-10-15 11:55] VITALS: BMI 35.6
--- NOTE | 2023-10-15 12:17 | P.TEE ---
Date of Procedure: 10/15/23 Description of Procedure(s): Procedure performed: 1. Transesophageal Echocardiogram with color flow doppler, pulsed wave doppler and continuous wave doppler 2. Moderate conscious sedation. Sedation time 30 mins. Indications: Persistent atrial fibrillation with reduced global LV systolic function. Consent: I have discussed the risks, benefits and alternative therapies for the above-mentioned procedure. The patient has indicated understanding and acceptance of the risks of the procedure. Signed consent was obtained and was placed in the paper chart. Procedural Steps: Timeout was performed in usual fashion. Patient's heart rate, blood pressure, oxygen saturation and ECG were monitored. Benzocaine was not sprayed due to ALLERGY reported to novocaine. Bite block was placed between the jaw.4 mg of Versed and 50 mcg of Fentanyl were administered intravenously. After achieving appropriate moderate conscious sedation, REJI probe was advanced without difficulty and without any immediate complications to the esophagus. REJI study was performed with color flow doppler, pulsed wave doppler and continuous wave doppler. Agitated saline bubbles were injected to assess for any intra- atrial shunt. The probe was then removed. Patient tolerated the procedure we ll. Patient was transferred to the post procedure area in stable and satisfactory condition. Throughout the procedure patient's heart rate, blood pressure, oxygen saturation and ECG were monitored. Total sedation time 30 mins. Complications: none FINDINGS Left Atrium: Mild left atrial dilatation dilatation. No thrombus Left Atrial Appendage: No evidence of thrombus or mass seen in KIMBERLEE. Reduced Doppler velocities and left atrial appendage Inter atrial septum: Intact inter-atrial septum with no evidence of atrial septal defect on color Doppler. Left Ventricle: Globally reduced LV systolic function Right Atrium: Mild right atrial dilatation Right Ventricle: Normal global RV size and systolic function Aortic Valve: Structurally normal Trileaflet, mild regurgitation. Mitral Valve: Restricted posterior mitral leaflet causing eccentric mild to moderate regurgitation Pulmonic Valve: No significant regurgitation Tricuspid Valve: Structurally normal. Moderate regurgitation. Ascending aorta, Aortic root and Aortic arch: Mild intimal thickening. Calcific atheroma was noticed. Descending aorta: Calcific atheroma noticed, intimal thickening. CONCLUSION: No evidence of thrombus and left atrial appendage left atrium Mild biatrial dilatation Moderately reduced global LV systolic function [id number] MR with restricted posterior mitral leaflet Mild aortic regurgitation Moderate tricuspid regurgitation
[2023-10-15 16:45] LABS: Glucose,Whole Blood 124 mg/dL (70-110)
[2023-10-15] MEDS ORDERED: PROPOFOL 10 MG/ML 20 ML VIAL IV ONE (17:43)
--- NOTE | 2023-10-15 18:13 | P.EPPROC ---
- EP Procedure Note Electrophysiology Procedure Note: Diagnosis Persistent atrial fibrillation with reasonable rate control Patient is extremely short of breath with minimal exertion. She underwent a REJI this morning Dilated cardio myopathy with severe LV dysfunction No intracardiac mass or thrombus, mild to moderate mitral regurgitation by REJI Details At 200 J synchronized biphasic shock in the AP configuration was used to convert the patient to sinus rhythm. Plan Switch to metoprolol succinate 100 mg daily in the morning Losartan 50 mg by mouth daily at noontime Continue ELIQUIS 5 mg twice daily Amiodarone 400 mg by mouth daily In addition continue baby aspirin Atorvastatin 20 mg by mouth daily in place of simvastatin Discontinue amlodipine Discontinue hydrochlorothiazide Follow-up with Dr. Garibay in 2 weeks
[2023-10-15] MEDS: MONTELUKAST 10 MG TAB PO SCH (20:29)
[2023-10-15] MEDS: ATORVASTATIN 20 MG TAB PO SCH (20:29)
[2023-10-15 20:35] LABS: Glucose,Whole Blood 252 mg/dL (70-110)
[2023-10-15] MEDS: ALPRAZolam 0.25 MG TAB PO PRN (23:18)
[2023-10-16 05:50] LABS: Glucose,Whole Blood 160 mg/dL (70-110)
[2023-10-16] MEDS: PANTOPRAZOLE 40 MG TABLET PO SCH (06:30)
[2023-10-16] MEDS: INSULIN ASPART (NovoLOG) 100 UNIT/ML VIAL SQ SCH ×2 (06:30→13:05)
[2023-10-16] MEDS: METOPROLOL SUCCINATE (ER) 100 MG TAB.ER.24H PO SCH ×2 (06:30→10:19)
[2023-10-16] MEDS: LEVOTHYROXINE 50 MCG TAB PO SCH (06:30)
[2023-10-16 08:31] VITALS: BP 118/70; PULSE 69; RESP 22; TEMP 97.4
[2023-10-16] MEDS: FLUoxetine HCL 20 MG CAP PO SCH (10:07)
[2023-10-16] MEDS: ASPIRIN 81 MG PO SCH (10:08)
[2023-10-16] MEDS: APIXABAN 5 MG TAB PO SCH (10:08)
[2023-10-16] MEDS: FAMOTIDINE 20 MG TAB PO SCH (10:08)
[2023-10-16] MEDS: LORATADINE 10 MG TAB PO SCH (10:08)
[2023-10-16] MEDS: busPIRone HCl 10 MG TAB PO SCH (10:08)
[2023-10-16] MEDS: allopurinoL 300 MG TAB PO SCH (10:08)
[2023-10-16] MEDS: AMIODARONE 200 MG TAB PO SCH (10:09)
[2023-10-16] MEDS: FUROSEMIDE 40 MG TAB PO SCH (10:09)
--- NOTE | 2023-10-16 10:44 | P.DS ---
Providers Date of admission: 10/10/23 15:36 Expected date of discharge: 10/16/23 Attending physician: Jose Carrasco MD Consults: 10/10/23 15:35 Consult Physician Urgent Consulting Provider: [facility] Consult Reason/Comments: A. fib with rapid ventricular response Do you want consulting provider notified?: Yes Primary care physician: [facility] Course: 78-year-old female with PMH of anxiety disorder, asthma, dyslipidemia, GERD, hypothyroidism presents to the ED for shortness of breath. Shortness of breath has been ongoing for the past 3-4 days. Worsened with exertion. She reports difficulty laying flat. No lower extremity edema. No history of CAD or CHF. In the ED, she underwent extensive evaluation. BP 138/89, HR 106, T 98F, 96% on RA. CBC unremarkable. Coagulation panel within normal limits. D-dimer 0.93. CMP BUN 19, Cr 1.10, glu 132, AST 50, ALT 63. Troponin 0.016. BNP 7660. TSH 4.23. EKG A-Fib with RVR rate 147 Chest CTA no PE, cardiomegaly, small bilateral pleural effusion. Patient was admitted for CHF exacerbation and A-Fib with RVR. Started on Lasix 40 mg IV QD from 10/10-10/13, switched to PO. Started on Cardizem drip from 10/10-10/13, Cardiology added Amiodarone and titrated Metoprolol. Echocardiogram showed EF 25% with mod pulmonary HTN and mild-mod MR/TR, small pericardial effusion. Patient continued to feel short of breath with little exertion, discussed with Dr. Garibay, ischemic workup outpatient when renal function stable. Patient underwent REJI and cardioversion on 10/15. Cardiology recommended the following medications on discharge: Metoprolol succinate 100 mg PO QD. Losartan 50 mg PO Qnoon. Eliquis 5 mg PO BID. Amiodarone 400 mg PO QD. ASA 81 mg PO QD. Atorvastatin 20 mg PO QD. Discontinue amlodipine and hydrochlorothiazide. Also will continue Lasix 40 mg PO QD. 10/16 Patient was seen and examined. Rate controlled. Complains of exertional SOB. Possible discharge home today if cleared by Cardiology. She will need to follow up with Dr. Garibay in 2 weeks. General: non toxic, no distress, appears at stated age Derm: warm, dry Head: atraumatic, normocephalic, symmetric Eyes: EOMI, no lid lag, anicteric sclera Mouth: no lip lesion, mucus membranes moist Cardiovascular: Normal S1 S2, no murmur Lungs: Decreased BS bilateral, no rhonchi, no rales , no accessory muscle use Ext: no gross muscle atrophy, no edema, no contractures Neuro: no focal neuro deficits Psych: Alert, oriented, appropriate affect Discharge Diagnosis: Atrial fibrillation with RVR Systolic CHF exacerbation Acute kidney injury Transaminitis Elevated D-Dimer Chronic conditions: anxiety disorder, asthma, dyslipidemia, GERD, hypothyroidism This complex discharge took 35 minutes to complete. Patient Condition at Discharge: Stable Plan - Discharge Summary Discharge Rx Participant: No New Discharge Prescriptions: New Amiodarone [Cordarone] 400 mg PO DAILY #90 tablet Metoprolol Succinate [Toprol XL] 100 mg PO DAILY #90 tab Aspirin 81 mg PO DAILY #30 tab Furosemide [Lasix] 40 mg PO DAILY #30 tab Losartan [Cozaar] 50 mg PO DAILY #90 tab Atorvastatin [Lipitor] 20 mg PO DAILY #90 tablet Apixaban [Eliquis] 5 mg PO BID #60 tab Continue FLUoxetine HCL [PROzac] 60 mg PO DAILY busPIRone HCL 10 mg PO BID allopurinoL [Zyloprim] 300 mg PO DAILY Zafirlukast [Accolate] 20 mg PO BID ALPRAZolam [Xanax] 0.25 mg PO BID PRN PRN Reason: Anxiety Multivitamins, Thera [Multivitamin (formulary)] 1 tab PO DAILY Cholecalciferol [Vitamin D3 (25 Mcg = 1000 Iu)] 50 mcg PO DAILY Levothyroxine Sodium [Synthroid] 50 mcg PO AC-BRKFST Pantoprazole [Protonix] 40 mg PO DAILY Discontinued amLODIPine BESYLATE 10 mg PO DAILY Simvastatin [Zocor] 20 mg PO HS Losartan/Hydrochlorothiazide [Losartan-Hctz 100-25 mg Tab] 1 tab PO DAILY Discharge Medication List ALPRAZolam [Xanax] 0.25 mg PO BID PRN 08/02/20 [History] Cholecalciferol [Vitamin D3 (25 Mcg = 1000 Iu)] 50 mcg PO DAILY 08/02/20 [History] FLUoxetine HCL [PROzac] 60 mg PO DAILY 08/02/20 [History] Multivitamins, Thera [Multivitamin (formulary)] 1 tab PO DAILY 08/02/20 [History] Zafirlukast [Accolate] 20 mg PO BID 08/02/20 [History] allopurinoL [Zyloprim] 300 mg PO DAILY 08/02/20 [History] busPIRone HCL 10 mg PO BID 08/02/20 [History] Levothyroxine Sodium [Synthroid] 50 mcg PO AC-BRKFST 02/09/22 [History] Pantoprazole [Protonix] 40 mg PO DAILY 10/10/23 [History] Amiodarone [Cordarone] 400 mg PO DAILY #90 tablet 10/15/23 [Rx] Atorvastatin [Lipitor] 20 mg PO DAILY #90 tablet 10/15/23 [Rx] Losartan [Cozaar] 50 mg PO DAILY #90 tab 10/15/23 [Rx] Metoprolol Succinate [Toprol XL] 100 mg PO DAILY #90 tab 10/15/23 [Rx] Apixaban [Eliquis] 5 mg PO BID #60 tab 10/16/23 [Rx] Aspirin 81 mg PO DAILY #30 tab 10/16/23 [Rx] Furosemide [Lasix] 40 mg PO DAILY #30 tab 10/16/23 [Rx] Follow up Appointment(s)/Referral(s): Chet Garibay MD [STAFF PHYSICIAN] - 2 Weeks Blas Williamson DO [Primary Care Provider] - 1-2 days Discharge Disposition: HOME SELF-CARE
[2023-10-16 11:16] LABS: Glucose,Whole Blood 144 mg/dL (70-110)
[2023-10-16] MEDS ORDERED: LOSARTAN 50 MG TAB PO SCH (12:00)
--- NOTE | 2023-10-16 12:37 | P.PN ---
Subjective HISTORY OF PRESENT ILLNESS: Patient is status post REJI and cardioversion. Patient examined this morning at the bedside. Patient reports she is feeling short of breath this morning. She denies any chest pain or pressure. Telemetry reveals sinus mechanism with PACs. PHYSICAL EXAM: VITAL SIGNS: Reviewed. GENERAL: Well-developed in no acute distress. NECK: Supple. No JVD or thyromegaly LUNGS: Respirations even and unlabored. Lungs essentially clear to auscultation bilaterally. HEART: Regular rate and rhythm. S1 and S2 heard. EXTREMITIES: Normal range of motion. No clubbing or cyanosis. Peripheral pulses intact. No lower extremity edema ASSESSMENT: New onset paroxysmal atrial fibrillation with RVR Status post REJI and cardioversion, currently maintaining sinus mechanism New onset cardiomyopathy, EF 25% History of anxiety History of asthma Dyslipidemia Gastroesophageal reflux disease Hypothyroidism PLAN: Continue current cardiac medications Continue telemetry monitoring Further recommendations pending patient's course Nurse practitioner note has been reviewed by physician. Signing provider agrees with the documented findings, assessment, and plan of care. Objective - Vital Signs Vital signs: Vital Signs Temp 97.4 F L 10/16/23 08:00 Pulse 69 10/16/23 08:00 Resp 22 10/16/23 08:00 BP 118/70 10/16/23 08:00 Pulse Ox 96 10/16/23 08:59 FiO2 Intake & Output 10/15/23 10/16/23 10/16/23 18:59 06:59 18:59 Intake Total 490 550 Output Total 1400 200 Balance -910 350 Weight 97.1 kg Intake: IV 250 10 Invasive Line 2 10 Intake, IV Titration 240 Amount Sodium Chloride 0.9% 1, 240 000 ml @ 20 mls/hr IV . Q24H CLIVE Rx#:[id number] Oral 540 Output: Urine 1400 200 Other: Voiding Method Toilet Toilet # Voids 1 # Bowel Movements 1 - Labs CBC & Chem 7: 10/15/23 07:19 10/15/23 07:19 Labs: Abnormal Lab Results - Last 24 Hours (Table) 10/15/23 10/15/23 10/16/23 Range/Units 16:44 20:23 05:48 POC Glucose (mg/dL) 124 H 252 H 160 H (70-110) mg/dL 10/16/23 Range/Units 11:15 POC Glucose (mg/dL) 144 H (70-110) mg/dL
== END 2023-10-16 13:43 | disposition home or self-care (01) | DRG 308 ==
LOC: EC 11:59 → 3SCARD 15:36
PROVIDERS: ADMIT Student in an Organized Health Care Education/Training Program; ATTEND Student in an Organized Health Care Education/Training Program
PROC: B246ZZ4 Ultrasonography of Right and Left Heart, Transesophageal (ICD-10-PCS; 2023-10-15)
PROC: 5A2204Z Restoration of Cardiac Rhythm, Single (ICD-10-PCS; principal; 2023-10-15 09:35)
DX: I48.19 Other persistent atrial fibrillation (principal); I50.23 Acute on chronic systolic (congestive) heart failure; N17.9 Acute kidney failure, unspecified; J44.0 Chronic obstructive pulmonary disease with (acute) lower respiratory infection; I31.39 Other pericardial effusion (noninflammatory); I11.0 Hypertensive heart disease with heart failure; E03.9 Hypothyroidism, unspecified; F32.A Depression, unspecified; I08.1 Rheumatic disorders of both mitral and tricuspid valves; I25.10 Atherosclerotic heart disease of native coronary artery without angina pectoris; I27.20 Pulmonary hypertension, unspecified; I42.9 Cardiomyopathy, unspecified; E78.5 Hyperlipidemia, unspecified; K21.9 Gastro-esophageal reflux disease without esophagitis; G47.30 Sleep apnea, unspecified; F41.9 Anxiety disorder, unspecified; Z79.890 Hormone replacement therapy; Z79.01 Long term (current) use of anticoagulants; Z79.82 Long term (current) use of aspirin; Z79.899 Other long term (current) drug therapy; Z98.84 Bariatric surgery status; Z98.42 Cataract extraction status, left eye; Z98.41 Cataract extraction status, right eye; Z96.641 Presence of right artificial hip joint; Z87.19 Personal history of other diseases of the digestive system; Z90.49 Acquired absence of other specified parts of digestive tract; Z88.2 Allergy status to sulfonamides; Z88.1 Allergy status to other antibiotic agents
CPT/HCPCS: 36415; 71275; 80048; 80053; 80061; 81001; 83735; 83880; 84443; 84484; 85025; 85027; 85379; 85610; 85730; 92960; 93005; 93306; 93312; 93320; 93325; 94760; 96365; 96366; 96368; 96375; 99291

== ENCOUNTER → 2023-10-10 | Outpatient (CLI) | payer MEDICARE ==
--- NOTE | 2023-10-10 10:34 | XR ---
EXAMINATION TYPE: XR chest 2V DATE OF EXAM: 10/10/2023 COMPARISON: 10/20/2021 INDICATION: Tachycardia short of breath TECHNIQUE: Frontal and lateral views of the chest are obtained. FINDINGS: The heart size is upper limits of normal for size. The pulmonary vasculature is normal. Small bilateral pleural effusions are present. Upper lung arthur are clear.. IMPRESSION: 1. Small bilateral pleural effusions
== END | disposition home or self-care (01) ==
LOC: RADXRYALE 10:06
PROVIDERS: ATTEND Physician Assistant Medical
DX: J90 Pleural effusion, not elsewhere classified (principal); R00.0 Tachycardia, unspecified; R06.02 Shortness of breath
CPT/HCPCS: 71046

== ENCOUNTER → 2023-10-25 | Outpatient (CLI) | payer MEDICARE | END | disposition home or self-care (01) | LOC: LABPRL 15:38 | PROVIDERS: ATTEND Orthopaedic Surgery | DX: M25.572 Pain in left ankle and joints of left foot (principal); M10.9 Gout, unspecified | CPT/HCPCS: 87070; 87075; 87205 ==

== ENCOUNTER 2023-11-07 06:22 | Inpatient (IN) | payer MEDICARE ==
[~2023-11-07 06:22] MED LIST changes: +ALPRAZolam 0.25 MG TAB PO PRN; +ALPRAZolam 0.5 MG TAB PO PRN; +NITROGLYCERIN SL TABS 0.4 MG TAB SUBLINGUAL PRN; -ROPIVACAINE/EPI/CLONIDINE/KET 50 ML SYRINGE MISCELLANE PRN
[2023-11-07] MEDS ORDERED: SODIUM CHLORIDE 0.9% 1,000 ML IV ONE ×2 (06:54→13:30)
[2023-11-07] MEDS ORDERED: METOPROLOL SUCCINATE (ER) 50 MG TAB.ER.24H PO STA (06:59)
[2023-11-07] MEDS ORDERED: LOSARTAN 50 MG TAB PO STA (06:59)
[2023-11-07] MEDS ORDERED: AMIODARONE 50 MG TAB PO STA (06:59)
[2023-11-07] MEDS ORDERED: ASPIRIN 325 MG TAB PO ONE (07:00)
[2023-11-07] MEDS ORDERED: LIDOCAINE 1% INJ 10MG/ML (20 ML MDV) ONE (09:04)
[2023-11-07] MEDS ORDERED: VERAPAMIL 2.5 MG/ML 2 ML AMP ONE (09:04)
[2023-11-07] MEDS ORDERED: HEPARIN SODIUM 1,000 UN/ML (10ML VL) ONE (09:12)
[2023-11-07] MEDS ORDERED: fentaNYL (PF) 50 MCG/ML 2 ML AMP ONE (09:12)
[2023-11-07] MEDS ORDERED: fentaNYL (PF) 50 MCG/ML 2 ML AMP IVP ONE (09:18)
[2023-11-07] MEDS ORDERED: MIDAZOLAM 2 MG/2 ML VIAL IVP ONE ×2 (09:18→14:23)
[2023-11-07] MEDS ORDERED: LIDOCAINE 1% INJ 10MG/ML (10 ML MDV) SQ ONE (09:21)
[2023-11-07] MEDS ORDERED: VERAPAMIL SYRINGE (5 MG/10 ML) INTRAARTER ONE (09:24)
[2023-11-07] MEDS ORDERED: HEPARIN SODIUM 1,000 UN/ML (10ML VL) IVP ONE (09:27)
[2023-11-07] MEDS ORDERED: LIDOCAINE 1% INJ 10MG/ML (20 ML MDV) SQ ONE ×2 (09:50→14:20)
[2023-11-07] MEDS ORDERED: IOPAMIDOL-370 100ML BTL INJ ONE ×2 (10:05→15:57)
--- NOTE | 2023-11-07 11:13 | P.CARDCATH ---
Date of Procedure: 11/07/23 Description of Procedure: DIAGNOSTIC CORONARY ANGIOGRAPHY and LEFT HEART CATH REPORT PROCEDURES PERFORMED: Left heart catheterization Selective coronary angiography Moderate conscious sedation 45 mins Right radial access Ultrasound assisted right common femoral access Right common femoral arteriogram Right subclavian artery arteriogram INDICATION: 78-year-old female who saw Dr. Garibay because of worsening shortness of breath with NYHA class III symptoms. She was found to have atrial fibrillation, and cardiomyopathy with a EF of 25%. Her chest CT scan showed coronary artery calcification. Because of these findings she was scheduled for an outpatient heart catheterization procedure. CONSENT: I have discussed the risks, benefits and alternative therapies for the above-mentioned procedure, sedation/analgesia and necessary blood product administration (if indicated, as they pertain to this patient). The patient has indicated understanding and acceptance of the risks and procedures discussed. Conscious Sedation: Patient's ECG, heart rate, blood pressure, pulse oximetry was monitored throughout the duration of procedure under the direct supervision. 2 mg Versed and 25 mg Fentanyl were used for induction of moderate conscious sedation. Total duration of 45 minutes. PROCEDURE:After the risks, benefits and alternatives of the above mentioned procedure explained in detail with the patient, informed consent was obtained. Patient was taken to the catheterization lab and prepped and draped in usual sterile fashion. Right radial artery was identified by palpation method. 1% lidocaine was infiltrated over the right radial artery. The right radial access was obtained by modified Seldinger technique. A 6-English sheath was placed in the right radial artery. J tipped wire was advanced under fluoroscopic guidance. Over the wire JR4 diagnostic catheter was advanced. The catheter and the wire was manipulated to cross the aortic valve. The wire was removed and the catheter was flushed and LV pressures were obtained. The pullback was performed. The catheter was manipulated to selectively engage the right coronary ostium. Right coronary angiogram was performed in different angiographic projections. With the help of the J wire the catheter was exchanged for a JL 4 diagnostic catheter. Due to significant tortuosity at the junction of right subclavian and aortic arch, there was difficulty in manipulating the JR4 diagnostic catheter to selectively engage the left coronary ostium. For this the JL 4 catheter was exchanged for a AL-1 diagnostic catheter. AL-1 catheter was unsuccessful to engage the left coronary ostium. This catheter was exchanged for a 6 English JL 5 diagnostic catheter. This catheter was unsuccessful to engage the left coronary ostium. This catheter was exchanged for a 5 English JL 5 diagnostic catheter. This catheter could not be passed into the aortic arch due to significant tortuosity. Right subclavian angiogram was performed to make sure there was no dissection. The wire and the catheter was removed under fluoroscopy guidance. Decision was made to proceed with ultrasound assisted right common femoral access. Ultrasound was used to identify the right common femoral artery. After confirming the bifurcation site, 1% lidocaine was infiltrated over the right common femoral artery. Under ultrasound guidance right common femoral artery access was obtained using a micropuncture needle. Using modified Seldinger technique, a 6 English sheath was secured into the right common femoral artery. Right common femoral artery angiogram was performed to confirm the placement and seemed appropriate. The J-wire was advanced through the sheath and over the wire a JL 4 diagnostic catheter was advanced. The catheter was manipulated to selectively engage the left coronary ostium. Left coronary angioplasty was performed in different ariela ographic projections. Catheter was removed over the wire. Femoral sheath was flushed. After careful review of images decision was made to plan for PCI of mid LAD. The case was discussed with Dr. Lindsey who agreed with these findings. HEMODYNAMICS: Aortic Pressure: 100/70 mmHg. LV pressure: 104/5 mmHg. LVEDP 10 mmHg. SELECTIVE CORONARY ARTERIOGRAPHY: LEFT MAIN: Very short left main and bifurcates into the LAD and LCx. Appears angiographically normal LEFT ANTERIOR DESCENDING CORONARY ARTERY: LAD is a large-caliber. Proximal LAD has mild to moderate irregularities. Mid LAD has diffuse calcific disease with 80% stenosis. LAD gives rise to a medium subseptate branching medium size diagonal branches which appears to angiographically normal. Distal LAD appears angiographically normal and has GRAHAM-3 flow. LEFT CIRCUMFLEX CORONARY ARTERY: It is nondominant vessel. Left circumflex is a moderate caliber vessel. It gives rise to an 2 mm OM1 which has mild ostial disease but is nonflow limiting. LCx continues to give a medium size OM 2 which appears angiographically normal. RIGHT CORONARY ARTERY: Dominant vessel. The right coronary artery is a large caliber vessel which gives PDA and PLV branch. Distal RCA has 20 to 30% luminal irregularities. 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 Staged PCI with Dr Moreira today overnight observation admission dicussed with family and updated them and they understand the plan Performing Physician Philipp Ulrich MD
[2023-11-07] MEDS ORDERED: HEPARIN SODIUM 1,000 UN/ML (10ML VL) IV ONE (14:31)
[2023-11-07] MEDS ORDERED: CLOPIDOGREL 75 MG TAB PO ONE (14:36)
[2023-11-07] MEDS ORDERED: HYDROmorphone 0.5 MG/0.5 ML SYRINGE IVP ONE ×3 (15:36→16:51)
[2023-11-07] MEDS ORDERED: MORPHINE SULFATE 4 MG/ML SYRINGE IVP ONE (15:45)
[2023-11-07] MEDS ORDERED: AMOXICILLIN PO PRN (16:08)
[2023-11-07] MEDS ORDERED: ALPRAZolam 0.25 MG TAB PO PRN (16:08)
[2023-11-07] MEDS ORDERED: RX INFO: IV CONTRAST WAS GIVEN 1 EACH MISC MISCELLANE PRN (16:09)
[2023-11-07] MEDS ORDERED: MAG HYDROX/AL HYDROX/SIMETH 30 ML CUP PO PRN (16:09)
[2023-11-07] MEDS ORDERED: NITROGLYCERIN SL TABS 0.4 MG TAB SUBLINGUAL PRN (16:09)
[2023-11-07] MEDS ORDERED: ZOLPIDEM 5 MG TAB PO PRN (16:09)
[2023-11-07] MEDS ORDERED: ATROPINE SULFATE 0.1 MG/ML 10ML SYRINGE IV PRN (16:09)
[2023-11-07] MEDS ORDERED: SODIUM CHLORIDE 0.9% 1,000 ML in EMPTY BAG 1 BAG IV SCH (16:15)
[2023-11-07] MEDS: SODIUM CHLORIDE 0.9% 1,000 ML in EMPTY BAG 1 BAG IV SCH ×2 (17:11→17:12)
[2023-11-07 17:12] LABS: Glucose,Whole Blood 165 mg/dL (70-110)
[2023-11-07 17:40] LABS: HCT 36.2 % (34.0-46.0); HGB 11.6 gm/dL (11.4-16.0); Hypochromasia Moderate; MCH 30.4 pg (25.0-35.0); MCV 95.1 fL (80.0-100.0); Mean Platelet Volume 8.5; Platelet Count 288 k/uL (150-450); RDW 14.8 % (11.5-15.5); WBC 9.6 k/uL (3.8-10.6)
[2023-11-07] MEDS ORDERED: ACETAMINOPHEN TAB 325 MG TAB PO PRN (20:00)
[2023-11-07] MEDS: busPIRone HCl 10 MG TAB PO SCH (20:18)
[2023-11-07] MEDS ORDERED: FUROSEMIDE 10 MG/ML 2 ML VIAL IV ONE (20:30)
--- NOTE | 2023-11-07 20:40 | P.PCN ---
Date of Procedure: 11/07/23 Operative Findings: Percutaneous coronary intervention Performing physician Wiley Moreira MD Procedure performed 1. Successful stenting extremely calcified and tortuous tubular lesion involving the proximal LAD artery using 4.0 x 38 mm Xience RODRIGO with an excellent angiographic results and reduction of stenosis 99% to 0% 2. Adjunctive use of orbital atherectomy,lithotripsy balloon, IVUS, and mechanical support 3. Selective left common femoral artery angiogram and the right common femoral artery angiogram Indication The patient is a pleasant 78-year-old female patient who was diagnosed recently with cardiomyopathy. She underwent a heart catheterization by Dr. Ulrich and that revealed critical disease involving the left anterior descending artery was extremely calcified and eccentric lesion. Her last echo showed an EF between 20-25% with a dilated left ventricle. Approach Right and left common femoral arteries Complication None Level of sedation Moderate with sedation length of 2 hours Procedure description Please refer to diagnostic heart catheterization was performed earlier by Dr. Ulrcih. The patient was brought to the cardiac rags laborer in stable medical condition after obtaining an informed consent. The patient was prepped and the drapped in the usual sterile fashion. Subsequently after conscious sedation was performed I decided to change the 6 Malian 11 cm sheath into a new one. That was performed overall 3 5 wire. Subsequently I did selective right common femoral artery angiogram which showed that the entry of the sheath was on the low side and because I wanted to be with mechanical support using Impella CP I decided to access the left common femoral artery. Left common femoral artery was cannulated using micropuncture technique, the micropuncture wire passed easily then I did selective left common femoral artery angiogram with injection through the sheath. After that and after assuring that the sheath entry was appropriate I did exchange my micropuncture sheath into 60 Malian sheath using all 3 5 wire. Subsequently I did deployed two Perclose at 10:00 and 2:00. After that I placed an 8 Malian sheath at the left common femoral artery. After that I did exchange my all 3 5 wire into a stiff all 3 5 wire. Then after that I was able to redilate using 12 Malian dilator before I did advance a 14 Malian 23 cm sheath under fluoroscopy guidance in the left common femoral artery and that she it went very smooth. Subsequently the sheath was flushed. Antic oagulation was initiated using heparin with continuous ACT monitoring. After that I was able to proximal aortic valve using all 3 5 wire with pigtail catheter. Subsequently the or 3 5 wire was exchanged into 018 wire and then the pigtail catheter was pulled out. Then I was able to advance the Impella CP over the 018 wire to the LV under fluoroscopy guidance and subsequently it was turned on. The patient was stable hemodynamically and electrically as well. No PVCs noted. Subsequently I attempted engaging the left main using initially CLS 3.5 guiding catheter but that was unsuccessful and then using JL4 guiding catheter and that was unsuccessful but finally I was able to engage the left main using JL 3.5 carotid guiding catheter. An angiogram was performed and identified the lesion in the proximal left anterior descending artery which is a long tubular lesion heavily calcified. I was able to wire the lesion using along with a wisper wire. Attempting advancing endovascular imaging catheter was unsuccessful after the proximal LAD was the lesion was very heavily calcified. That we get an idea that the LAD diameter was around 4 mm. After that I did exchange my all 4 wire into the flex wire with pinning for talectomy. I did orbital atherectomy of the lesion using four runs in the low speed. After that I did balloon angioplasty using 3 mm balloon. After that I was able to advance 4 mm lithotripsy balloon which was inflated multiple times in the proximal left anterior descending artery before I deployed a 4.0 x 38 mm stent or the stent was positioned under fluoroscopy guidance and deployed under fluoroscopy guidance. The proximal edge of the stent was postdilated using 4.5 mm balloon but subsequently attempting advancing again the endovascular imaging catheter was unsuccessful because of wire bias to the stented segment in spite of wearing the LAD using a jude wire. I decided to postdilated the whole stented segment and a dilated that using 4.5 mm balloon. Final angiogram showed excellent angiographic results. The procedure was completed with no implication and the patient tolerated the procedure very well. Subsequently the mechanical support catheter was pulled from the left ventricle across the aortic valve and then subsequently was pulled out completely. Hemostasis of the left groin was achieved using the Percloses devices and final angiogram from the right groin was performed using a rim catheter and showed good hemostasis. The right groin he is was pulled manually because of the thick was on the low side. Postprocedure management Dual antiplatelet therapy using ASA and Plavix for at least 6 months Standard groin care Risk factors modification Follow-up with the patient
[2023-11-07] MEDS ORDERED: MONTELUKAST 10 MG TAB PO SCH (21:00)
[2023-11-08 00:58] LABS: HCT 36.3 % (34.0-46.0); HGB 11.7 gm/dL (11.4-16.0); Hypochromasia Slight; MCH 30.6 pg (25.0-35.0); MCHC 32.2 g/dL (31.0-37.0); MCV 95.1 fL (80.0-100.0); Mean Platelet Volume 8.8; Platelet Count 186 k/uL (150-450); RBC 3.82 m/uL (3.80-5.40); RDW 14.9 % (11.5-15.5); WBC 10.6 k/uL (3.8-10.6)
[2023-11-08] MEDS: SODIUM CHLORIDE 0.9% 1,000 ML in EMPTY BAG 1 BAG IV SCH ×2 (02:28→08:20)
[2023-11-08 06:03] LABS: HCT 33.1 % (34.0-46.0); HGB 10.2 gm/dL (11.4-16.0); Hypochromasia Moderate; MCH 29.7 pg (25.0-35.0); MCHC 30.9 g/dL (31.0-37.0); MCV 95.8 fL (80.0-100.0); Platelet Count 209 k/uL (150-450); RBC 3.45 m/uL (3.80-5.40); RDW 15.4 % (11.5-15.5); WBC 8.2 k/uL (3.8-10.6)
[2023-11-08] MEDS ORDERED: ONDANSETRON 4 MG/2 ML VIAL IVP STA (06:04)
[2023-11-08] MEDS ORDERED: LEVOTHYROXINE 50 MCG TAB PO SCH (07:30)
[2023-11-08 07:53] LABS: African American GFR (CKD) 50 (>60 ml/min/1.73 sqM); Non-African American GFR(CKD) 43 (>60 ml/min/1.73 sqM)
[2023-11-08] MEDS: busPIRone HCl 10 MG TAB PO SCH (08:21)
[2023-11-08] MEDS ORDERED: FLUoxetine HCL 20 MG CAP PO SCH (09:00)
[2023-11-08] MEDS ORDERED: CHOLECALCIFEROL 25 MCG (1000 IU) TABLET PO SCH (09:00)
[2023-11-08] MEDS ORDERED: allopurinoL 300 MG TAB PO SCH (09:00)
[2023-11-08] MEDS ORDERED: CLOPIDOGREL 75 MG TAB PO SCH (09:00)
[2023-11-08] MEDS ORDERED: PANTOPRAZOLE 40 MG TABLET PO SCH (09:00)
[2023-11-08] MEDS ORDERED: AMIODARONE 200 MG TAB PO SCH (09:00)
[2023-11-08] MEDS ORDERED: LOSARTAN 50 MG TAB PO SCH (09:00)
[2023-11-08] MEDS ORDERED: ATORVASTATIN 20 MG TAB PO SCH (09:00)
[2023-11-08] MEDS ORDERED: MULTIVITAMINS, THERA 1 EACH TAB PO SCH (09:00)
[2023-11-08] MEDS ORDERED: FUROSEMIDE 20 MG TAB PO SCH (09:00)
[2023-11-08] MEDS ORDERED: METOPROLOL SUCCINATE (ER) 50 MG TAB.ER.24H PO SCH (09:00)
[2023-11-08] MEDS ORDERED: ASPIRIN 81 MG PO SCH (09:00)
[2023-11-08 11:52] VITALS: BMI 37.0
[2023-11-08 12:27] VITALS: BP 115/59; PULSE 95; RESP 16; TEMP 98.2
--- NOTE | 2023-11-08 13:17 | P.DS ---
Providers Date of admission: 11/07/23 16:16 Expected date of discharge: 11/08/23 Attending physician: Philipp Ulrich MD Consults: 11/07/23 16:09 Consult Physician Routine Consulting Provider: [facility] Consult Reason/Comments: Post Interventional Patient Do you want consulting provider notified?: Already Contacted Primary care physician: [facility] Course: Patient is a 76-year-old female who is known to Dr. Garibay. She was seen in the clinic because of worsening shortness of breath with NYHA class III symptoms. She was found to have atrial fibrillation along with cardiomyopathy with an EF of 20 to 25%. Her chest CT scan showed moderate to severe coronary artery calcification. Due to these findings she was scheduled for an outpatient heart catheterization procedure yesterday on 11/07/[address] Ulrich. Cath was attempted via right radial approach but due to significant tortuosity at the junction point of right subclavian and aortic arch selective coronary angiogram of left coronary artery could not be obtained. Due to this decision was made to proceed with right common femoral access. Angiogram showed 80% diffuse calcific disease involving the mid LAD which is a large caliber vessel. Case was discussed with Dr. Lindsey who is on-call and decision was made to proceed with LAD PCI. This was staged for later afternoon yesterday. Due to significant low EF, and anticipated need of plaque modification with orbital arthrectomy and shockwave balloon Dr. Moreira decided to place an Impella device via left femoral access approach. He was able to successfully place the 4 x 38 mm RODRIGO in mid LAD with good results. Postoperatively patient was monitored overnight in the ICU. It was noted that patient developed a small hematoma in the right groin. Was examined today. She denied having any active chest pain chest pressure or shortness of breath. She was hemodynamically stable with SBP around 100, diastolic BP around 70. Her heart rate was around 80 to 90 bpm and was in atrial fibrillation. She did not appear volume overloaded. JVD was not elevated no swelling in the bilateral lower extremity. does have systolic murmur which is radiating to her axilla S1-S2 audible, irregularly irregular pulse Good pulses in bilateral lower extremity. Ecchymosis noticed in right groin, small hematoma palpable which has been stable. No swelling or hematoma or ecchymosis on the left groin. Right radial access site appears intact with no hematoma or swelling or ecchymosis Patient is cleared to be discharged from cardiovascular standpoint with outpatient follow-up with Dr. Garibay in next 1 week. Discharge medications include aspirin, Plavix, Eliquis. Once patient follows up with Dr. Garibay we will decide about the triple antiplatelet therapy. Her hemoglobin level is 10 today. On admission yesterday it was 11. Her baseline hemoglobin varies around 10-11. Creatinine is 1.20 stable at baseline. Other medications amiodarone 200 mg, metoprolol 150 mg daily. Reducing dose of losartan from 50 mg to 25 mg due to low blood pressure. Lasix 20 mg daily Assessment: CAD s/p PCI to mid LAD 4 x 38 mm RODRIGO. Impella assisted procedure with shockwave and orbital arthrectomy Dilated cardiomyopathy EF 20 to 25% Persistent atrial fibrillation Anemia CKD Patient is cleared to be discharged from cardiovascular standpoint with outpatient follow-up with Dr. Garibay in next 1 week. Discharge medications include aspirin, Plavix, Eliquis. Once patient follows up with Dr. Garibay we will decide about the triple antiplatelet therapy. Her hemoglobin level is 10 today. On admission yesterday it was 11. Her baseline hemoglobin varies around 10-11. Creatinine is 1.20 stable at baseline. Other medications amiodarone 200 mg, metoprolol 150 mg daily. Reducing dose of losartan from 50 mg to 25 mg due to low blood pressure. Lasix 20 mg daily Plan - Discharge Summary Discharge Rx Participant: No New Discharge Prescriptions: New Atorvastatin [Lipitor] 40 mg PO HS #90 tablet Nitroglycerin Sl Tabs [Nitrostat] 0.4 mg SUBLINGUAL Q5M PRN #100 tab PRN Reason: Chest Pain Clopidogrel [Plavix] 75 mg PO DAILY #90 tab Losartan [Cozaar] 25 mg PO DAILY #90 tab Continue FLUoxetine HCL [PROzac] 60 mg PO DAILY busPIRone HCL 10 mg PO BID allopurinoL [Zyloprim] 300 mg PO DAILY Zafirlukast [Accolate] 20 mg PO BID Multivitamins, Thera [Multivitamin (formulary)] 1 tab PO DAILY Cholecalciferol [Vitamin D3 (25 Mcg = 1000 Iu)] 50 mcg PO DAILY Levothyroxine Sodium [Synthroid] 50 mcg PO AC-BRKFST Aspirin 81 mg PO DAILY #30 tab Pantoprazole [Protonix] 40 mg PO DAILY Apixaban [Eliquis] 5 mg PO BID #60 tab Furosemide [Lasix] 20 mg PO DAILY Metoprolol Succinate [Toprol XL] 150 mg PO DAILY Changed Amiodarone [Cordarone] 200 mg PO DAILY #90 tablet Discontinued Unk Amoxicillin 1 tab PO DIRECTED PRN PRN Reason: prior to dental procedures Losartan [Cozaar] 50 mg PO DAILY #90 tab Atorvastatin [Lipitor] 20 mg PO DAILY #90 tablet No Action ALPRAZolam [Xanax] 0.25 mg PO BID PRN PRN Reason: Anxiety Discharge Medication List ALPRAZolam [Xanax] 0.25 mg PO BID PRN 08/02/20 [History] Cholecalciferol [Vitamin D3 (25 Mcg = 1000 Iu)] 50 mcg PO DAILY 08/02/20 [History] FLUoxetine HCL [PROzac] 60 mg PO DAILY 08/02/20 [History] Multivitamins, Thera [Multivitamin (formulary)] 1 tab PO DAILY 08/02/20 [History] Zafirlukast [Accolate] 20 mg PO BID 08/02/20 [History] allopurinoL [Zyloprim] 300 mg PO DAILY 08/02/20 [History] busPIRone HCL 10 mg PO BID 08/02/20 [History] Levothyroxine Sodium [Synthroid] 50 mcg PO AC-BRKFST 02/09/22 [History] Pantoprazole [Protonix] 40 mg PO DAILY 10/10/23 [History] Apixaban [Eliquis] 5 mg PO BID #60 tab 10/16/23 [Rx] Aspirin 81 mg PO DAILY #30 tab 10/16/23 [Rx] Furosemide [Lasix] 20 mg PO DAILY 11/01/23 [History] Metoprolol Succinate [Toprol XL] 150 mg PO DAILY 11/01/23 [History] Amiodarone [Cordarone] 200 mg PO DAILY #90 tablet 11/08/23 [Rx] Atorvastatin [Lipitor] 40 mg PO HS #90 tablet 11/08/23 [Rx] Clopidogrel [Plavix] 75 mg PO DAILY #90 tab 11/08/23 [Rx] Losartan [Cozaar] 25 mg PO DAILY #90 tab 11/08/23 [Rx] Nitroglycerin Sl Tabs [Nitrostat] 0.4 mg SUBLINGUAL Q5M PRN #100 tab 11/08/23 [Rx] Follow up Appointment(s)/Referral(s): Chet Garibay MD [STAFF PHYSICIAN] - 11/14/23 10:30 am Patient Instructions/Handouts: Moderate Sedation (DC), After Radial Heart Catheterization (GEN) Activity/Diet/Wound Care/Special Instructions: No driving for two days Ok to shower tomorrow but no baths, pools, lakes, doing dishes by hand for five days. Signs of infection IE: fever, rash, drainage from puncture site, swelling go to ER/doctor for immediate evaluation. Avoid using right wrist/hand to bend, flex, lift greater than 5 lbs for five days. For Heavy Bleeding of puncture site apply firm direct pressure and return to ER. Do not attempt to drive self. low sodium/low fat diet medications as directed by Cardiologists
--- NOTE | 2023-11-12 08:45 | CDI ---
Documentation Clarification Form Date: 11/12/2023 08:39:30 AM From: Lucero Stephenson Phone: Admit Date: 11/07/2023 04:16:00 PM Patient Name: Trisha Brito Visit Number: [id number] Discharge Date: 11/08/2023 01:22:00 PM ATTENTION: The Clinical Documentation Specialists (CDI) and [facility] Coding Staff appreciate your assistance in clarifying documentation. Please respond to the clarification below the line at the bottom and electronically sign. The CDI & [facility] Coding staff will review the response and follow-up if needed. Please note: Queries are made part of the Legal Health Record. If you have any questions, please contact the author of this message via ITS. Dr. Philipp Ulrich Unspecified CKD is documented H&P and DC Summary. Additional clarification regarding the stage of CKD is requested. History/Risk Factors: 78yo F, DCM, persistent A Fib, CKD w anemia, HTN, AC, MR, TR, CAD, HLD, gout Clinical Indicators: AfAm GFR 50 Creat: 1.21 Non AFAM GFR: 43 Treatment: monitored Please clarify the stage of the CKD, if known: [ x] CKD Stage 3a [ ] CKD Stage 3b [ ] Other, please specify [ ] Unable to determine Reference: National [employer] Stage 1 eGFR = 90 and kidney damage for =3 months Stage 2 eGFR 60-89 and kidney damage for =3 months Stage 3a eGFR 45-59 and kidney damage for =3 months Stage 3b eGFR 30-44 and kidney damage for =3 months Stage 4 eGFR 15-29 r and kidney damage for =3 months Stage 5 eGFR <15 and kidney damage for =3 months (Template Last revised: October 2023) MTDD
== END 2023-11-08 13:22 | disposition home or self-care (01) | DRG 217 ==
LOC: CATHCVL 06:22 → 2SICU 16:16
PROVIDERS: ADMIT Student in an Organized Health Care Education/Training Program; ATTEND Student in an Organized Health Care Education/Training Program
PROC: 5A0221D Assistance with Cardiac Output using Impeller Pump, Continuous (ICD-10-PCS; 2023-11-07)
PROC: B2111ZZ Fluoroscopy of Multiple Coronary Arteries using Low Osmolar Contrast (ICD-10-PCS; 2023-11-07)
PROC: B41F1ZZ Fluoroscopy of Right Lower Extremity Arteries using Low Osmolar Contrast (ICD-10-PCS; 2023-11-07)
PROC: B3111ZZ Fluoroscopy of Right Brachiocephalic-Subclavian Artery using Low Osmolar Contrast (ICD-10-PCS; 2023-11-07)
PROC: 6A750Z5 Ultrasound Therapy of Heart, Single (ICD-10-PCS; 2023-11-07)
PROC: B41G1ZZ Fluoroscopy of Left Lower Extremity Arteries using Low Osmolar Contrast (ICD-10-PCS; 2023-11-07)
PROC: 02HA3RJ Insertion of Short-term External Heart Assist System into Heart, Intraoperative, Percutaneous Approach (ICD-10-PCS; principal; 2023-11-07 09:00)
PROC: 4A023N7 Measurement of Cardiac Sampling and Pressure, Left Heart, Percutaneous Approach (ICD-10-PCS; 2023-11-07 09:00)
PROC: 027034Z Dilation of Coronary Artery, One Artery with Drug-eluting Intraluminal Device, Percutaneous Approach (ICD-10-PCS; 2023-11-07 11:25)
PROC: 02C03Z7 Extirpation of Matter from Coronary Artery, One Artery, Orbital Atherectomy Technique, Percutaneous Approach (ICD-10-PCS; 2023-11-07 11:25)
DX: I42.0 Dilated cardiomyopathy (principal); I48.19 Other persistent atrial fibrillation; D63.1 Anemia in chronic kidney disease; N18.31 Chronic kidney disease, stage 3a; I12.9 Hypertensive chronic kidney disease with stage 1 through stage 4 chronic kidney disease, or unspecified chronic kidney disease; I08.3 Combined rheumatic disorders of mitral, aortic and tricuspid valves; I25.10 Atherosclerotic heart disease of native coronary artery without angina pectoris; M10.9 Gout, unspecified; E78.5 Hyperlipidemia, unspecified; R03.1 Nonspecific low blood-pressure reading; Z88.1 Allergy status to other antibiotic agents; Z88.7 Allergy status to serum and vaccine; Z88.8 Allergy status to other drugs, medicaments and biological substances; Z79.82 Long term (current) use of aspirin; Z79.01 Long term (current) use of anticoagulants; Z79.899 Other long term (current) drug therapy; Z79.890 Hormone replacement therapy
CPT/HCPCS: 33990; 76937; 82565; 84132; 85027; 86850; 86900; 86901; 92972; 92978; 93458

== ENCOUNTER → 2023-11-16 | Outpatient (CLI) | payer MEDICARE ==
--- NOTE | 2023-11-18 20:48 | XR ---
EXAMINATION TYPE: XR thoracic spine complete DATE OF EXAM: 11/16/2023 3:46 PM CLINICAL INDICATION:Female, 78 years old with history of M546 THOR PAIN; [facility] COMPARISON: CT chest 10/10/2023 TECHNIQUE: 2 views of the thoracic spine in Frontal and lateral projections. FINDINGS: Osseous mineralization appears appropriate. No destructive osseous lesion is seen. There is moderate multilevel degenerative disc disease with disc space narrowing and marginal osteophytes, mostly anter ior. An element of DISH is not excluded. Slight exaggerated thoracic kyphosis. Mild apex right scolio sis in the lower thoracic region. The pedicles appear intact. No paraspinous soft tissue abnormality is seen. The heart appears enlarged. If clinical concern persists, CT or MRI may be obtained as indicated for further evaluation. IMPRESSION: Moderate thoracic spondylosis. No acute radiographic abnormality.
== END | disposition home or self-care (01) ==
LOC: RADXRYALE 15:28
PROVIDERS: ATTEND Physician Assistant Medical
DX: M47.814 Spondylosis without myelopathy or radiculopathy, thoracic region (principal)
CPT/HCPCS: 72072

== ENCOUNTER 2023-11-29 09:58 | Day surgery (SDC) | payer MEDICARE ==
[2023-11-27 11:40] VITALS: BMI 35.2
[~2023-11-29 09:58] MED LIST changes: -ALPRAZolam 0.25 MG TAB PO PRN; -ALPRAZolam 0.5 MG TAB PO PRN; +LACTATED RINGERS 1,000 ML IV SCH; -NITROGLYCERIN SL TABS 0.4 MG TAB SUBLINGUAL PRN; +SODIUM CHLORIDE 0.9% 1,000 ML IV SCH
[2023-11-29] MEDS: SODIUM CHLORIDE 0.9% 500 ML 500 ML IV ONE (10:09)
[2023-11-29 10:36] VITALS: RESP 16; TEMP 98.6
[2023-11-29] MEDS ORDERED: PROPOFOL 10 MG/ML 20 ML VIAL IV ONE (10:53)
--- NOTE | 2023-11-29 11:13 | P.EPPROC ---
- EP Procedure Note Electrophysiology Procedure Note: This is Dr. Garibay dictating an H/P on this patient The patient was interviewed and examined IMPRESSION / ASSESSMENT: Persistent symptomatic atrial fibrillation with difficult rate control Single-vessel coronary artery disease proximal LAD status post stenting Dilated cardiomyopathy ejection fraction 25% Moderate MR Hypertension History of post stenting hypertension and at that time losartan was held PLAN: Electrical cardioversion and amiodarone 200 mg p.o. daily Thereafter follow thyroid function tests and LFTs Reduce the dose of metoprolol thereafter Continue amiodarone Continue Eliquis along with Plavix If this strategy fails then a pace and ablate strategy would be recommended in the future HPI Patient remains short of breath. Even when walking to the bathroom, a very short distance she was found to be quite short of breath in the ESU She remains in atrial fibrillation with RVR. I asked her to hold metoprolol this morning but continue with Eliquis She is also on oral amiodarone She denies any syncope she denies any shortness of breath at rest or while sleeping ROS: No fever chills or rigors, no cough, phlegm or expectoration, no nausea, vomiting or diarrhea, no hematuria, dysuria, no musculoskeletal complaints, no strokes or seizures, no skin lesions. EXAMINATION: Pulse rate at rest 136 beats minute irregular Respiration 16 Blood pressure 159/95 mmHg afebrile Heart sounds are tachycardic No JVD No orthopnea No lower extremity edema Soft abdomen Clear lungs no rhonchi no crackles REVIEW OF LABS, ECG & MEDICAL DATA Amiodarone 200 mg daily, Plavix 75 mg daily, Eliquis 5 mg twice daily, Lasix 20 mg daily Levothyroxine 50 mcg daily, metoprolol succinate 100 mg twice daily
--- NOTE | 2023-11-29 11:15 | P.EPPROC ---
- EP Procedure Note Electrophysiology Procedure Note: Diagnosis Persistent atrial fibrillation with associated cardiomyopathy Single-vessel CAD Atrial fibrillation with RVR Procedure Electrical cardioversion was performed successfully with a 200 J biphasic shock to sinus rhythm in the 50s Plan Continue Eliquis along with Plavix Continue metoprolol long-acting at low-dose of 100 mg p.o. daily Follow-up 2D echo and Doppler study in 6 weeks Follow-up 7-day Holter monitor in 6 weeks
[2023-11-29] MEDS: METOPROLOL SUCCINATE (ER) 100 MG TAB.ER.24H PO STA (11:57)
[2023-11-29] MEDS: FUROSEMIDE 80 MG TAB PO STA (11:58)
[2023-11-29 12:44] LABS: ALT 77 U/L (4-34); AST 52 U/L (14-36); African American GFR (CKD) 54 (>60 ml/min/1.73 sqM); Albumin 3.5 g/dL (3.5-5.0); Alkaline Phosphatase 130 U/L (38-126); Anion Gap 4 mmol/L; Blood Urea Nitrogen 23 mg/dL (7-17); Calcium 8.7 mg/dL (8.4-10.2); Carbon Dioxide 28 mmol/L (22-30); Chloride 108 mmol/L (98-107); Glucose 145 mg/dL (74-99); Non-African American GFR(CKD) 47 (>60 ml/min/1.73 sqM); Potassium 3.7 mmol/L (3.5-5.1); Sodium 140 mmol/L (137-145); Total Bilirubin 1.5 mg/dL (0.2-1.3); Total Protein 5.6 g/dL (6.3-8.2)
[2023-11-29 16:25] VITALS: BP 138/64; PULSE 65
== END 2023-11-29 14:15 | disposition home or self-care (01) ==
LOC: CATHEP 09:58
PROVIDERS: ATTEND Internal Medicine Clinical Cardiac Electrophysiology
DX: I48.19 Other persistent atrial fibrillation (principal); I25.10 Atherosclerotic heart disease of native coronary artery without angina pectoris; I10 Essential (primary) hypertension; Z79.899 Other long term (current) drug therapy
CPT/HCPCS: 92960; 80053; 84443; J2704

== ENCOUNTER 2023-12-06 10:35 | Emergency (ER) | payer MEDICARE ==
[2023-12-06 11:37] LABS: Appearance,Urine Clear (Clear); Bacteria,Urine Occasional /hpf; Bilirubin,Urine Negative (Negative); Blood,Urine Trace (Negative); Color,Urine Colorless; Glucose,Urine (UA) Negative (Negative); Ketones,Urine Negative (Negative); Leukocyte Esterase,Urine Negative (Negative); Nitrite,Urine Positive (Negative); PH, Urine 6.5 (5.0-8.0); Protein,Urine Trace (Negative); RBC,Urine 9 /hpf (0-5); Specific Gravity,Urine 1.006 (1.001-1.035); Squamous Epithelial Cell,Urine <1 /hpf (0-4); Urobilinogen,Urine <2.0 mg/dL (<2.0); WBC,Urine 7 /hpf (0-5)
[2023-12-06 11:52] LABS: Anisocytosis Slight; Basophils # (A) 0.1 k/uL (0-0.2); Basophils % (A) 1 %; Eosinophils # (A) 0.2 k/uL (0-0.7); Eosinophils % (A) 3 %; HCT 38.4 % (34.0-46.0); HGB 12.4 gm/dL (11.4-16.0); Hypochromasia Slight; Lymphocytes # (A) 0.9 k/uL (1.0-4.8); Lymphocytes % (A) 13 %; MCH 32.4 pg (25.0-35.0); MCHC 32.2 g/dL (31.0-37.0); MCV 100.6 fL (80.0-100.0); Macrocytosis Moderate; Monocytes # (A) 0.5 k/uL (0-1.0); Monocytes % (A) 7 %; Neutrophils # (A) 5.1 k/uL (1.3-7.7); Neutrophils % (A) 74 %; Platelet Count 220 k/uL (150-450); RBC 3.82 m/uL (3.80-5.40); RDW 17.9 % (11.5-15.5); WBC 6.9 k/uL (3.8-10.6)
[2023-12-06 12:24] LABS: ALT 79 U/L (4-34); AST 70 U/L (14-36); African American GFR (CKD) 54 (>60 ml/min/1.73 sqM); Albumin 3.4 g/dL (3.5-5.0); Alkaline Phosphatase 140 U/L (38-126); Anion Gap 4 mmol/L; Blood Urea Nitrogen 23 mg/dL (7-17); Calcium 9.1 mg/dL (8.4-10.2); Carbon Dioxide 31 mmol/L (22-30); Chloride 105 mmol/L (98-107); Glucose 147 mg/dL (74-99); Non-African American GFR(CKD) 46 (>60 ml/min/1.73 sqM); Sodium 140 mmol/L (137-145); Total Bilirubin 1.2 mg/dL (0.2-1.3); Total Protein 5.7 g/dL (6.3-8.2)
--- NOTE | 2023-12-06 12:29 | ED ---
Extremity Problem HPI - General Chief complaint: Extremity Problem,Nontraumatic Stated complaint: FEET SWELLING Time Seen by Provider: 12/06/23 11:02 Source: patient, RN notes reviewed Mode of arrival: wheelchair Limitations: no limitations - History of Present Illness Initial comments: This is a 78-year-old female who presents to the emergency department for swelling in her bilateral lower extremities. This has been present for several weeks, but increasing over the last couple of days. She has some wounds on the legs as a result of the swelling that are uncomfortable, but otherwise denies any leg pain. She was diagnosed with congestive heart failure earlier this year. She does take Lasix. Denies any chest pain or shortness of breath associ ated with this. She does also have a history of atrial fibrillation. Follows with Dr. Garibay, cardiology. She is on dual antiplatelet therapy with Eliquis and Plavix. She was told with the swelling to just monitor it for the meantime, but to have it evaluated if it started to increase. MD Complaint: extremity swelling - Related Data Home Medications Medication Instructions Recorded Confirmed ALPRAZolam [Xanax] 0.25 mg PO BID PRN 08/02/20 12/06/23 Cholecalciferol [Vitamin D3 (25 50 mcg PO DAILY 08/02/20 12/06/23 Mcg = 1000 Iu)] FLUoxetine HCL [PROzac] 60 mg PO DAILY 08/02/20 12/06/23 Multivitamins, Thera [Multivitamin 1 tab PO DAILY 08/02/20 12/06/23 (formulary)] Zafirlukast [Accolate] 10 mg PO BID 08/02/20 12/06/23 allopurinoL [Zyloprim] 300 mg PO HS 08/02/20 12/06/23 busPIRone HCL 10 mg PO HS 08/02/20 12/06/23 Levothyroxine Sodium [Synthroid] 50 mcg PO AC-BRKFST 02/09/22 12/06/23 Pantoprazole [Protonix] 40 mg PO DAILY 10/10/23 12/06/23 Furosemide [Lasix] 20 mg PO DAILY 11/01/23 12/06/23 Amiodarone [Cordarone] 400 mg PO DAILY 12/06/23 12/06/23 Budesonide/Formoterol Fumarate 2 puff INHALATION RT-BID 12/06/23 12/06/23 [Symbicort 160-4.5 Mcg Inhaler] amLODIPine [Norvasc] 10 mg PO DAILY 12/06/23 12/06/23 Previous Rx's Medication Instructions Recorded Apixaban [Eliquis] 5 mg PO BID #60 tab 10/16/23 Atorvastatin [Lipitor] 40 mg PO HS #90 tablet 11/08/23 Clopidogrel [Plavix] 75 mg PO DAILY #90 tab 11/08/23 Losartan [Cozaar] 25 mg PO DAILY #90 tab 11/08/23 Nitroglycerin Sl Tabs [Nitrostat] 0.4 mg SUBLINGUAL Q5M PRN #100 tab 11/08/23 Metoprolol Succinate [Toprol XL] 100 mg PO DAILY #90 tab 11/29/23 cefUROXime axetiL [Ceftin] 500 mg PO BID 7 Days #14 tab 12/06/23 Allergies Allergy/AdvReac Type Severity Reaction Status Date / Time sulfamethoxazole AdvReac Unknown STOMACH Verified 12/06/23 14:59 [From Bactrim] PAIN trimethoprim [From Bactrim] AdvReac Unknown STOMACH Verified 12/06/23 14:59 PAIN HORSE SERUM TETANAS Allergy Severe Anaphylaxis Uncoded 11/27/23 11:08 Novacaine Allergy Anaphylaxis Uncoded 11/27/23 11:08 Review of Systems ROS Statement: Those systems with pertinent positive or pertinent negative responses have been documented in the HPI. ROS Other: All systems not noted in ROS Statement are negative. Past Medical History Past Medical History: Atrial Fibrillation, Hyperlipidemia, Hypertension Additional Past Medical History / Comment(s): Sleep Apnea (no machine not working), hx of septicemia, neck, back and shoulder pain, uses cane and rolling walker prn, gout . pt states recent SOB, weakness, History of Any Multi-Drug Resistant Organisms: None Reported Past Surgical History: Adenoidectomy, Bariatric Surgery, Cholecystectomy, Hernia Repair, Joint Replacement, Tonsillectomy Additional Past Surgical History / Comment(s): GASTRIC SLEEVE (2010- DR MENDEZ), CARPAL TUNNEL MARILYN, CATARACTS, INGUINAL HERNIA, MARILYN TOTAL KNEES, Bilateral TOTAL HIPs, injections in back for spinal stenosis and cervical injections., pain clinic procedures. Past Anesthesia/Blood Transfusion Reactions: No Reported Reaction, Motion Sickness Past Psychological History: Anxiety, Depression Smoking Status: Never smoker - Past Family History Mother Additional Family Medical History / Comment(s): heart disease Father Family Medical History: Coronary Artery Disease (CAD), CVA/TIA Additional Family Medical History / Comment(s): heart disease General Exam Limitations: no limitations General appearance: alert, in no apparent distress Head exam: Present: atraumatic, normocephalic, normal inspection Respiratory exam: Present: normal lung sounds bilaterally. Absent: respiratory distress, wheezes, rales, rhonchi, stridor Cardiovascular Exam: Present: regular rate, irregular rhythm Extremities exam: Present: other (Pitting edema to the bilateral lower extremities. No tenderness. No erythema.) Neurological exam: Present: alert, oriented X3, CN II-XII intact Psychiatric exam: Present: normal affect, normal mood Course Vital Signs 12/06/23 12/06/23 12/06/23 10:43 13:57 14:58 Temperature 98.5 F 97.6 F Pulse Rate 104 H 99 76 Respiratory 20 18 18 Rate Blood Pressure 140/80 144/108 125/78 O2 Sat by Pulse 97 97 98 Oximetry Medical Decision Making - Medical Decision Making This is a 78-year-old female who presents to the emergency department for lower extremity swelling. Was pt. sent in by a medical professional or institution? @ -No Did you speak to anyone other than the patient for history? @ -No Did you review nursing and triage notes? @ -Yes, and I agree, it is accurate with regards to the patient's symptoms. Were old charts reviewed? @ -No Differential Diagnosis? @ -Differential Leg Edema: CHF, renal failure, hypothyroidism, dependent edema, DVT, this is not meant to be an all-inclusive list. EKG interpreted by me (3pts min.)? @ -EKG interpreted by me demonstrating the following: Atrial fibrillation. Ventricular rate 102 bpm, QRS duration 109 ms, QTc 420 ms. X-rays interpreted by me (1pt min.)? @ -Chest x-ray obtained. My interpretation identifies no evidence of pulmonary edema. CT interpreted by me (1pt min.)? @ -Not obtained U/S interpreted by me (1pt. min.)? @ -Not obtained What testing was considered but not performed? (CT, X-rays, U/S, labs)? Why? @ -None What meds were considered but not given? Why? @ -None Did you discuss the management of the patient with other professionals? @ -No Did you reconcile home meds? @ -No Was smoking cessation discussed for >3mins.? @ -No Was critical care preformed (if so, how long)? @ -No Were there social determinants of health that impacted care today? How? ( Homelessness, low income, unemployed, alcoholism, drug addiction, transportation, low edu. Level, literacy, decrease access to med. care, intermediate, rehab)? @ -No Was there de-escalation of care discussed even if they declined? (Discuss DNR or withdrawal of care, Hospice)? @ -No What co-morbidities impacted this encounter? (DM, HTN, Smoking, COPD, CAD, Cancer, CVA, Hep., AIDS, mental health diagnosis, sleep apnea, morbid obesity)? @ -A-fib, CHF Was patient admitted / discharged? @ -Discharged. Lab work demonstrates an elevated BNP of 15,600, which has increased when compared with prior. Renal function is stable. Urinalysis also suggestive of infection. Chest x-ray demonstrates a possible small left pleural effusion without evidence of pulmonary edema. Patient was not exhibiting any chest pain or shortness of breath. She was also in atrial fibrillation while in the emergency department, with her heart rate ranging from 85 to 105 bpm. She was also asymptomatic with regards to the atrial fibrillation and states that she is almost always in A-fib with her heart rate around this range. She is a lready on dual antiplatelet therapy. Aside from the lower extremity swelling, patient was essentially asymptomatic in general. She was given 1 g of ceftriaxone in the emergency department and urine cultures were obtained. 40 mg of IV Lasix administered as well. At that point patient requested discharge home. Patient is only on 20 mg of Lasix at home. Advised increasing this to 40 mg daily for about a week. Prescription for Ceftin provided as well for the UTI. Patient discharged home in stable condition and advised to follow-up with her primary care provider and interpretive program coordinator. Undiagnosed new problem with uncertain prognosis? @ -None Drug Therapy requiring intensive monitoring for toxicity (Heparin, Nitro, Insulin, Cardizem)? @ -None Were any procedures done? @ -None Diagnosis/symptom? @ -Bilateral leg edema Acute, or Chronic, or Acute on Chronic? @ -Acute Uncomplicated (without systemic symptoms) or Complicated (systemic symptoms)? @ -Uncomplicated Side effects of treatment? @ -None Exacerbation, Progression, or Severe Exacerbation] @ -Not applicable Poses a threat to life or bodily function? @ -Unlikely Return precautions reviewed in depth, the patient is instructed to return to the emergency department with any new, worsening, or concerning symptoms. Patient verbalized understanding. This case was discussed in detail with the attending ED physician, Dr. Pearl. Presentation, findings, and treatment plan discussed in detail as well. - Lab Data Result diagrams: 12/06/23 11:14 12/06/23 11:14 Lab Results 12/06/23 12/06/23 12/06/23 Range/Units 11:14 11:14 11:14 WBC 6.9 (3.8-10.6) k/uL RBC 3.82 (3.80-5.40) m/uL Hgb 12.4 (11.4-16.0) gm/dL Hct 38.4 (34.0-46.0) % MCV 100.6 H (80.0-100.0) fL MCH 32.4 (25.0-35.0) pg MCHC 32.2 (31.0-37.0) g/dL RDW 17.9 H (11.5-15.5) % Plt Count 220 (150-450) k/uL MPV 8.0 Neutrophils % 74 % Lymphocytes % 13 % Monocytes % 7 % Eosinophils % 3 % Basophils % 1 % Neutrophils # 5.1 (1.3-7.7) k/uL Lymphocytes # 0.9 L (1.0-4.8) k/uL Monocytes # 0.5 (0-1.0) k/uL Eosinophils # 0.2 (0-0.7) k/uL Basophils # 0.1 (0-0.2) k/uL Hypochromasia Slight Anisocytosis Slight Macrocytosis Moderate Sodium 140 (137-145) mmol/L Potassium 4.0 (3.5-5.1) mmol/L Chloride 105 (98-107) mmol/L Carbon Dioxide 31 H (22-30) mmol/L Anion Gap 4 mmol/L BUN 23 H (7-17) mg/dL Creatinine 1.14 H (0.52-1.04) mg/dL Est GFR (CKD-EPI)AfAm 54 (>60 ml/min/1.73 sqM) Est GFR (CKD-EPI)NonAf 46 (>60 ml/min/1.73 sqM) Glucose 147 H (74-99) mg/dL Calcium 9.1 (8.4-10.2) mg/dL Total Bilirubin 1.2 (0.2-1.3) mg/dL AST 70 H (14-36) U/L ALT 79 H (4-34) U/L Alkaline Phosphatase 140 H (38-126) U/L NT-Pro-B Natriuret Pep 61767 pg/mL Total Protein 5.7 L (6.3-8.2) g/dL Albumin 3.4 L (3.5-5.0) g/dL TSH 6.490 H (0.465-4.680) mIU/L Free T4 2.11 (0.78-2.19) ng/dL Urine Color Colorless Urine Appearance Clear (Clear) Urine pH 6.5 (5.0-8.0) Ur Specific [place] 1.006 (1.001-1.035) Urine Protein Trace H (Negative) Urine Glucose (UA) Negative (Negative) Urine Ketones Negative (Negative) Urine Blood Trace H (Negative) Urine Nitrite Positive H (Negative) Urine Bilirubin Negative (Negative) Urine Urobilinogen <2.0 (<2.0) mg/dL Ur Leukocyte Esterase Negative (Negative) Urine RBC 9 H (0-5) /hpf Urine WBC 7 H (0-5) /hpf Ur Squamous Epith Cells <1 (0-4) /hpf Urine Bacteria Occasional H (None) /hpf - Radiology Data Radiology results: report reviewed, image reviewed Disposition Clinical Impression: CHF (congestive heart failure), Bilateral lower extremity edema Disposition: HOME SELF-CARE Instructions (If sedation given, give patient instructions): Heart Failure (ER), Leg Edema (ED) Additional Instructions: Return to the emergency department with any new, worsening, or concerning symptoms. Take the antibiotic as prescribed for 7 days. Double your Lasix dosage for 1 week. Keep your legs elevated. Follow up with your primary care provider in 1-2 days. Prescriptions: cefUROXime axetiL [Ceftin] 500 mg PO BID 7 Days #14 tab Is patient prescribed a controlled substance at d/c from ED?: No Referrals: Blas Williamson, [Primary Care Provider] - 1-2 days Time of Disposition: 14:42
[2023-12-06 12:31] LABS: NT-Pro-B-Type Natriuretic Pept 15600 pg/mL
[2023-12-06] MEDS: cefTRIAXone IN SWFI 1,000 MG/10 ML SYRINGE IVP STA (12:40)
[2023-12-06] MEDS: FUROSEMIDE 10 MG/ML 4 ML VIAL IV STA (12:44)
[2023-12-06 13:35] LABS: T4, Free (Free Thyroxine) 2.11 ng/dL (0.78-2.19)
[2023-12-06 14:25] VITALS: RESP 18
--- NOTE | 2023-12-06 14:39 | XR ---
EXAMINATION TYPE: XR chest 1V portable DATE OF EXAM: 12/06/2023 Comparison: 10/10/2023 Clinical History: 78-year-old female CHF and leg swelling Findings: Heart mildly enlarged. Hyperinflation. There is blunting of the left costophrenic angle with mild pat valentin left basilar opacity. Prominent degenerative change at the left glenohumeral joint. Impression: Mild cardiomegaly and COPD. A small left pleural effusion may indicate mild CHF. No pulmonary edema.
[2023-12-06 15:30] VITALS: BP 125/78; PULSE 76; TEMP 97.6
== END 2023-12-06 15:10 | disposition home or self-care (01) ==
LOC: EC 10:35
DX: I11.0 Hypertensive heart disease with heart failure (principal); I50.9 Heart failure, unspecified; J90 Pleural effusion, not elsewhere classified; I48.91 Unspecified atrial fibrillation; F32.A Depression, unspecified; F41.9 Anxiety disorder, unspecified; Z79.899 Other long term (current) drug therapy; Z88.1 Allergy status to other antibiotic agents; Z88.2 Allergy status to sulfonamides; Z88.7 Allergy status to serum and vaccine; Z88.8 Allergy status to other drugs, medicaments and biological substances; Z90.49 Acquired absence of other specified parts of digestive tract; Z98.84 Bariatric surgery status
CPT/HCPCS: 36415; 93005; 84439; 83880; 80053; 84443; 85025; 81001; 87086; 71045; 99284; 96374; 96375; J1940; J0696

== ENCOUNTER → 2024-02-11 | Outpatient (CLI) | payer MEDICARE ==
--- NOTE | 2024-02-11 10:53 | XR ---
EXAMINATION TYPE: XR thoracic spine complete DATE OF EXAM: 02/11/2024 10:38 AM CLINICAL INDICATION:Female, 78 years old with history of M546,[id number] THOR PAIN,FALL; [facility] COMPARISON: None TECHNIQUE: XR thoracic spine complete views of the spine in Frontal and lateral projections. FINDINGS: There is a fracture line through the anterior vertebral body lower thoracic spine new from prior. The re is scattered multilevel disk space narrowing without loss of vertebral body height. There is alexander l alignment of the thoracic vertebral bodies. Scattered osteophyte formation along the anterior and l ateral aspects of the vertebral bodies. Neural foramen are patent given limitations of this exam. Spi nal canal appears patent. Mild cardiomegaly. IMPRESSION: 1. Fracture line suggested to the anterior vertebral body of the lower thoracic spine 2. Moderate degeneration changes throughout the spine.
== END | disposition home or self-care (01) ==
LOC: RADXRYALE 10:18
PROVIDERS: ATTEND Physician Assistant Medical
DX: M54.6 Pain in thoracic spine (principal); W01.0XXA Fall on same level from slipping, tripping and stumbling without subsequent striking against object, initial encounter
CPT/HCPCS: 72072

== ENCOUNTER 2024-02-20 06:48 | Emergency (ER) | payer MEDICARE ==
--- NOTE | 2024-02-20 07:05 | ED ---
Fall HPI - General Chief Complaint: Fall Stated Complaint: fall Time Seen by Provider: 02/20/24 06:58 Source: patient, EMS, RN notes reviewed Mode of arrival: EMS Limitations: no limitations - History of Present Illness Initial Comments: 78-year-old female presents emergency department chief complaint of a fall. She states she is on her couch and rolled off falling striking her head. She is on blood thinners for A-fib. Patient states she has no significant headache no blurred vision no focal weakness. Patient does complain of left shoulder pain d enies any hip pain denies any back pain, lower extremity injuries. No paresthesias patient has no other associated symptoms or complaints. - Related Data Home Medications Medication Instructions Recorded Confirmed ALPRAZolam [Xanax] 0.25 mg PO BID PRN 08/02/20 12/06/23 Cholecalciferol [Vitamin D3 (25 50 mcg PO DAILY 08/02/20 12/06/23 Mcg = 1000 Iu)] FLUoxetine HCL [PROzac] 60 mg PO DAILY 08/02/20 12/06/23 Multivitamins, Thera [Multivitamin 1 tab PO DAILY 08/02/20 12/06/23 (formulary)] Zafirlukast [Accolate] 10 mg PO BID 08/02/20 12/06/23 allopurinoL [Zyloprim] 300 mg PO HS 08/02/20 12/06/23 busPIRone HCL 10 mg PO HS 08/02/20 12/06/23 Levothyroxine Sodium [Synthroid] 50 mcg PO AC-BRKFST 02/09/22 12/06/23 Pantoprazole [Protonix] 40 mg PO DAILY 10/10/23 12/06/23 Furosemide [Lasix] 20 mg PO DAILY 11/01/23 12/06/23 Amiodarone [Cordarone] 400 mg PO DAILY 12/06/23 12/06/23 Budesonide/Formoterol Fumarate 2 puff INHALATION RT-BID 12/06/23 12/06/23 [Symbicort 160-4.5 Mcg Inhaler] amLODIPine [Norvasc] 10 mg PO DAILY 12/06/23 12/06/23 Previous Rx's Medication Instructions Recorded Apixaban [Eliquis] 5 mg PO BID #60 tab 10/16/23 Atorvastatin [Lipitor] 40 mg PO HS #90 tablet 11/08/23 Clopidogrel [Plavix] 75 mg PO DAILY #90 tab 11/08/23 Losartan [Cozaar] 25 mg PO DAILY #90 tab 11/08/23 Nitroglycerin Sl Tabs [Nitrostat] 0.4 mg SUBLINGUAL Q5M PRN #100 tab 11/08/23 Metoprolol Succinate [Toprol XL] 100 mg PO DAILY #90 tab 11/29/23 cefUROXime axetiL [Ceftin] 500 mg PO BID 7 Days #14 tab 12/06/23 Allergies Allergy/AdvReac Type Severity Reaction Status Date / Time sulfamethoxazole AdvReac Unknown STOMACH Verified 02/20/24 06:57 [From Bactrim] PAIN trimethoprim [From Bactrim] AdvReac Unknown STOMACH Verified 02/20/24 06:57 PAIN HORSE SERUM TETANAS Allergy Severe Anaphylaxis Uncoded 02/20/24 06:57 Novacaine Allergy Anaphylaxis Uncoded 02/20/24 06:57 Review of Systems ROS Statement: Those systems with pertinent positive or pertinent negative responses have been documented in the HPI. ROS Other: All systems not noted in ROS Statement are negative. Past Medical History Past Medical History: Atrial Fibrillation, Hyperlipidemia, Hypertension Additional Past Medical History / Comment(s): Sleep Apnea (no machine not working), hx of septicemia, neck, back and shoulder pain, uses cane and rolling walker prn, gout . pt states recent SOB, weakness, History of Any Multi-Drug Resistant Organisms: None Reported Past Surgical History: Adenoidectomy, Bariatric Surgery, Cholecystectomy, Hernia Repair, Joint Replacement, Tonsillectomy Additional Past Surgical History / Comment(s): GASTRIC SLEEVE (2010- DR MENDEZ), CARPAL TUNNEL MARILYN, CATARACTS, INGUINAL HERNIA, MARILYN TOTAL KNEES, Bilateral TOTAL HIPs, injections in back for spinal stenosis and cervical injections., pain clinic procedures. Past Anesthesia/Blood Transfusion Reactions: No Reported Reaction, Motion Sickness Past Psychological History: Anxiety, Depression Smoking Status: Never smoker Past Alcohol Use History: None Reported Past Drug Use History: None Reported - Past Family History Mother Additional Family Medical History / Comment(s): heart disease Father Family Medical History: Coronary Artery Disease (CAD), CVA/TIA Additional Family Medical History / Comment(s): heart disease General Exam Limitations: no limitations General appearance: alert, in no apparent distress Head exam: Present: atraumatic, normocephalic, normal inspection Eye exam: Present: normal appearance, PERRL, EOMI. Absent: scleral icterus, conjunctival injection, periorbital swelling ENT exam: Present: normal exam, normal oropharynx, mucous membranes moist Neck exam: Present: normal inspection, full ROM. Absent: tenderness, meningismus, lymphadenopathy Respiratory exam: Present: normal lung sounds bilaterally. Absent: respiratory distress, wheezes, rales, rhonchi, stridor Cardiovascular Exam: Present: regular rate, normal rhythm, normal heart sounds. Absent: systolic murmur, diastolic murmur, rubs, gallop, clicks GI/Abdominal exam: Present: soft, normal bowel sounds. Absent: distended, tenderness, guarding, rebound, rigid Extremities exam: Present: other (Left shoulder there is mild tenderness and discomfort with range of motion, neurovascular tact remaining extremities and within normal limits) Back exam: Present: full ROM. Absent: tenderness, paraspinal tenderness, vertebral tenderness Neurological exam: Present: alert, oriented X3, CN II-XII intact, reflexes normal. Absent: motor sensory deficit Skin exam: Present: warm, dry, intact, normal color. Absent: rash Course Vital Signs 02/20/24 06:50 Temperature 98.3 F Pulse Rate 93 Respiratory 18 Rate Blood Pressure 153/117 O2 Sat by Pulse 95 Oximetry Medical Decision Making - Medical Decision Making Was pt. sent in by a medical professional or institution (, PA, SOFTLINES SUPERVISOR, urgent care, hospital, or residential...) When possible be specific @ -No Did you speak to anyone other than the patient for history (EMS, parent, family, police, friend...)? What history was obtained from this source @ -No Did you review nursing and triage notes (agree or disagree)? Why? @ -I reviewed and agree with nursing and triage notes Were old charts reviewed (outside hosp., previous admission, EMS record, old EKG, old radiological studies, urgent care reports/EKG's, residential records)? Report findings @ -No old charts were reviewed Differential Diagnosis (chest pain, altered mental status, abdominal pain women, abdominal pain men, vaginal bleeding, weakness, fever, dyspnea, syncope, headache, dizziness, GI bleed, back pain, seizure, CVA, palpatations, mental health, musculoskeletal)? @ -Fall, intracranial hemorrhage, head injury, shoulder fracture, dislocation, contusion EKG interpreted by me (3pts min.). @ -None X-rays interpreted by me (1pt min.). @ -X-ray left shoulder no acute fracture or dislocation CT interpreted by me (1pt min.). @ -CT brain C-spine showing chronic small vessel disease brain, no intracranial hemorrhage, degenerative changes of the cervical spine without acute fracture U/S interpreted by me (1pt. min.). @ -None done What testing was considered but not performed or refused? (CT, X-rays, U/S, labs)? Why? @ -None What meds were considered but not given or refused? Why? @ -None Did you discuss the management of the patient with other professionals (professionals i.e. , PA, SOFTLINES SUPERVISOR, lab, RT, psych nurse, social media marketer, video game engineer, teacher, forest fire officer, case making machine operator)? Give summary @ -No Was smoking cessation discussed for >3mins.? @ -No Was critical care preformed (if so, how long)? @ -No Were there social determinants of health that impacted care today? How? (Homelessness, low income, unemployed, alcoholism, drug addiction, transportation, low edu. Level, literacy, decrease access to med. care, alf, rehab)? @ -No Was there de-escalation of care discussed even if they declined (Discuss DNR or withdrawal of care, Hospice)? DNR status @ -No What co-morbidities impacted this encounter? (DM, HTN, Smoking, COPD, CAD, Cancer, CVA, ARF, Chemo, Hep., AIDS, mental health diagnosis, sleep apnea, morbid obesity)? @ -A-fib Was patient admitted / discharged? Hospital course, mention meds given and route, prescriptions, significant lab abnormalities, going to OR and other pertinent info. @ -Discharge imaging including brain, cervical spine and shoulder x-ray were negative for acute problems or chronic degenerative changes. Patient is discharged in stable condition return parameters discussed. Undiagnosed new problem with uncertain prognosis? @ -No Drug Therapy requiring intensive monitoring for toxicity (Heparin, Nitro, Insulin, Cardizem)? @ -No Were any procedures done? @ -No Diagnosis/symptom? @ -Fall, closed head injury, shoulder contusion Acute, or Chronic, or Acute on Chronic? @ -Acute Uncomplicated (without systemic symptoms) or Complicated (systemic symptoms)? @ -Uncomplicated Side effects of treatment? @ -No Exacerbation, Progression, or Severe Exacerbation? @ -No Poses a threat to life or bodily function? How? (Chest pain, [place], [place], pneumonia, PE, COPD, DKA, ARF, appy, cholecystitis, CVA, Diverticulitis, Homicidal, Suicidal, threat to staff... and all critical care pts) @ -No Disposition Clinical Impression: Fall, Shoulder contusion, Closed head injury Disposition: HOME SELF-CARE Condition: Stable Instructions (If sedation given, give patient instructions): Head Injury (ED) Additional Instructions: Please return to the Emergency Department if symptoms worsen or any other concerns. Is patient prescribed a controlled substance at d/c from ED?: No Referrals: Laina Aldridge PAC [Family Provider] - 1-2 days Time of Disposition: 08:35
--- NOTE | 2024-02-20 08:22 | CT ---
EXAMINATION TYPE: CT brain andrez rodriguez con DATE OF EXAM: 02/20/2024 COMPARISON: None HISTORY: 78-year-old female with pain after Fall CT DLP: 1438.2 mGycm Automated exposure control for dose reduction was used. Technique: Examination of the head was done in axial plane without intravenous contrast. Coronal and sagittal reconstructions performed. CT of the cervical spine was obtained in axial plane without intravenous injection of contrast mater ial. Coronal and sagittal reformatted images were obtained from the axial views for evaluation of f ractures, spinal alignment and canal. FINDINGS: Head: There is no evidence of acute intracranial hemorrhage, acute ischemic changes, mass, mass-effect, or extra-axial fluid collection. There is no effacement of cerebral sulci or basal subarachnoid cister ns. Mild ventricular prominence likely mild central cerebral atrophy. There is no midline shift. Gra y-white matter distinction is preserved. Moderate patchy white matter hypodensities in both cervical hemispheres. Empty sella noted with smooth remodeling and sellar enlargement. Paranasal sinuses and mastoid air cells well pneumatized. Orbits and globes are intact. Cervical spine: Trace bilateral pleural effusions. No craniocervical junction anomaly, predental space widening, or prevertebral soft tissue swelling. D egenerative change C1 dens articulation. Moderate spondylotic changes especially mid to lower cervical spine. There is reversal of the normal cervical lordosis. Trace degenerative grade 1 anterolisthesis C2-C3, C7-T1, and T1-T2, T2-T3. Disc osteophyte complex at C4-C5 mildly narrows the spinal canal. Variable moderate neuroforaminal narrowing secondary to hypertrophic facet and uncovertebral joint ar thropathy. No acute fracture seen of the cervical spine. Sagittal and coronal reformatted images confirm above findings. COMBINED IMPRESSION: 1. Mild central cerebral atrophy and moderate patchy burden of chronic small vessel ischemic disease. No acute intracranial abnormality seen. Incidental empty sella. 2. Moderate multilevel spondylotic change. Degenerative trace grade 1 anterolisthesis C2-C3 and C7-T3 levels. No acute fracture of the cervical spine. 3. Trace bilateral pleural effusions partially seen in the visualized upper chest. Correlate for any fluid overload state/CHF.
--- NOTE | 2024-02-20 08:26 | XR ---
EXAMINATION TYPE: XR shoulder complete 3 views LT DATE OF EXAM: 02/20/2024 Comparison: None Clinical History: 78-year-old female with pain Findings: Mild degenerative change AC joint. Subacromial space is preserved. There is moderate to severe, suspe cted bone on bone degenerative change at the glenohumeral joint with bulky marginal spurring and subc hondral sclerosis. Electronic device projects at the left lower chest. No acute fracture, subluxation , dislocation is seen. Impression: Severe glenohumeral joint OA. Suspect bone on bone change. No acute osseous abnormality seen.
[2024-02-20 09:13] LABS: Amorphous Sediment,Urine Rare /hpf; Appearance,Urine Cloudy (Clear); Bacteria,Urine Many /hpf; Bilirubin,Urine Negative (Negative); Blood,Urine Small (Negative); Color,Urine Yellow; Glucose,Urine (UA) Negative (Negative); Ketones,Urine Negative (Negative); Leukocyte Esterase,Urine Moderate (Negative); Mucus,Urine Rare /hpf; Nitrite,Urine Negative (Negative); PH, Urine 5.5 (5.0-8.0); Protein,Urine 2+ (Negative); RBC,Urine 3 /hpf (0-5); Specific Gravity,Urine 1.015 (1.001-1.035); Urobilinogen,Urine <2.0 mg/dL (<2.0); WBC,Urine 18 /hpf (0-5)
[2024-02-20 09:18] LABS: Anisocytosis Slight; Basophils % (A) 1 %; Eosinophils # (A) 0.2 k/uL (0-0.7); Eosinophils % (A) 2 %; HCT 42.5 % (34.0-46.0); HGB 13.9 gm/dL (11.4-16.0); Hypochromasia Slight; Lymphocytes % (A) 14 %; MCHC 32.8 g/dL (31.0-37.0); MCV 100.8 fL (80.0-100.0); Macrocytosis Slight; Mean Platelet Volume 9.4; Monocytes # (A) 0.5 k/uL (0-1.0); Monocytes % (A) 7 %; Neutrophils # (A) 5.5 k/uL (1.3-7.7); Neutrophils % (A) 75 %; Platelet Count 255 k/uL (150-450); RBC 4.22 m/uL (3.80-5.40); RDW 16.4 % (11.5-15.5); WBC 7.4 k/uL (3.8-10.6)
[2024-02-20 09:21] LABS: ALT 72 U/L (4-34); AST 59 U/L (14-36); African American GFR (CKD) 51 (>60 ml/min/1.73 sqM); Albumin 3.3 g/dL (3.5-5.0); Alkaline Phosphatase 207 U/L (38-126); Anion Gap 6 mmol/L; Blood Urea Nitrogen 22 mg/dL (7-17); Calcium 9.2 mg/dL (8.4-10.2); Carbon Dioxide 26 mmol/L (22-30); Chloride 108 mmol/L (98-107); Glucose 157 mg/dL (74-99); Non-African American GFR(CKD) 44 (>60 ml/min/1.73 sqM); Potassium 3.4 mmol/L (3.5-5.1); Sodium 140 mmol/L (137-145); Total Bilirubin 1.1 mg/dL (0.2-1.3); Total Protein 5.9 g/dL (6.3-8.2)
[2024-02-20] MEDS: cefTRIAXone IN SWFI 1,000 MG/10 ML SYRINGE IVP STA (09:41)
[2024-02-20] MEDS: cefTRIAXone 1,000 MG VIAL (IM USE) IM STA (09:42)
[2024-02-20 10:53] VITALS: BP 154/110; PULSE 87; RESP 18; TEMP 97.8
== END 2024-02-20 10:32 | disposition home or self-care (01) ==
LOC: EC 06:48
DX: S40.012A Contusion of left shoulder, initial encounter (principal); S09.90XA Unspecified injury of head, initial encounter; Z88.2 Allergy status to sulfonamides; Z88.1 Allergy status to other antibiotic agents; Z88.8 Allergy status to other drugs, medicaments and biological substances; W18.09XA Striking against other object with subsequent fall, initial encounter
CPT/HCPCS: 36415; 80053; 85025; 81001; 87086; 73030; 72125; 70450; 99285; 96374; J0696; 87077; 87186

== ENCOUNTER 2024-03-04 18:11 | Inpatient (IN) | payer MEDICARE ==
--- NOTE | 2024-03-04 18:32 | ED ---
Altered Mental Status HPI - General Source: patient, family, RN notes reviewed Mode of arrival: wheelchair Limitations: no limitations <Arlette Dial - Last Filed: 03/04/24 18:30> <Bro Chand - Last Filed: 03/17/24 04:17> - General Source: RN notes reviewed, old records reviewed Mode of arrival: ambulatory Limitations: no limitations - History of Present Illness MD Complaint: altered mental status, confusion, weakness, other (Lower extremity edema) -: unknown Consistency of Symptoms: waxing and waning Context: drug abuse <Levi Pearl - Last Filed: 03/20/24 13:49> - General Chief Complaint: Altered Mental Status Stated Complaint: AMS Time Seen by Provider: 03/04/24 18:25 - History of Present Illness Initial Comments: Quick Note-this is a 70-year-old female presents emergency department accompanied by her daughter and chief complaint of increasing effusion. Daughter states that patient was started on antibiotics on 02/18 after she was diagnosed with a urinary tract infection. Family states that the patient has been having increased confusion during this time periods of incontinence. (Arlette Dial) This is a 78-year-old female to ER for evaluation today. This patient presents for increased confusion and increased lower extremity swelling and edema (Levi Pearl) - Related Data Home Medications Medication Instructions Recorded Confirmed ALPRAZolam [Xanax] 0.25 mg PO BID PRN 08/02/20 03/04/24 FLUoxetine HCL [PROzac] 60 mg PO DAILY 08/02/20 03/04/24 Multivitamins, Thera [Multivitamin 1 tab PO DAILY 08/02/20 03/04/24 (formulary)] Zafirlukast [Accolate] 20 mg PO BID 08/02/20 03/04/24 allopurinoL [Zyloprim] 300 mg PO HS 08/02/20 03/04/24 Levothyroxine Sodium [Synthroid] 50 mcg PO DAILY 02/09/22 03/04/24 Furosemide [Lasix] 40 mg PO DAILY 11/01/23 03/04/24 Cholecalciferol [Vitamin D3 (25 50 mcg PO DAILY 03/04/24 03/04/24 Mcg = 1000 Iu)] Losartan [Cozaar] 25 mg PO HS 03/04/24 03/04/24 Spironolactone [Aldactone] 25 mg PO DAILY 03/04/24 03/04/24 Previous Rx's Medication Instructions Recorded Apixaban [Eliquis] 5 mg PO BID #60 tab 10/16/23 Atorvastatin [Lipitor] 40 mg PO HS #90 tablet 11/08/23 Clopidogrel [Plavix] 75 mg PO DAILY #90 tab 11/08/23 Nitroglycerin Sl Tabs [Nitrostat] 0.4 mg SUBLINGUAL Q5M PRN #100 tab 11/08/23 Metoprolol Succinate [Toprol XL] 100 mg PO DAILY #90 tab 11/29/23 Allergies Allergy/AdvReac Type Severity Reaction Status Date / Time sulfamethoxazole AdvReac Unknown STOMACH Verified 03/04/24 19:57 [From Bactrim] PAIN trimethoprim [From Bactrim] AdvReac Unknown STOMACH Verified 03/04/24 19:57 PAIN HORSE SERUM TETANAS Allergy Severe Anaphylaxis Uncoded 02/20/24 06:57 Novacaine Allergy Anaphylaxis Uncoded 02/20/24 06:57 Review of Systems ROS Other: All systems not noted in ROS Statement are negative. <Arlette Dial - Last Filed: 03/04/24 18:30> ROS Other: All systems not noted in ROS Statement are negative. <Bro Chand - Last Filed: 03/17/24 04:17> ROS Other: All systems not noted in ROS Statement are negative. <Levi Pearl - Last Filed: 03/20/24 13:49> ROS Statement: Those systems with pertinent positive or pertinent negative responses have been documented in the HPI. Past Medical History Past Medical History: Atrial Fibrillation, Hyperlipidemia, Hypertension Additional Past Medical History / Comment(s): Sleep Apnea (no machine not working), hx of septicemia, neck, back and shoulder pain, uses cane and rolling walker prn, gout . pt states recent SOB, weakness,. Bed Bugs (03/04/24) History of Any Multi-Drug Resistant Organisms: None Reported Past Surgical History: Adenoidectomy, Bariatric Surgery, Cholecystectomy, Hernia Repair, Joint Replacement, Tonsillectomy Additional Past Surgical History / Comment(s): GASTRIC SLEEVE (2010- DR MENDEZ), CARPAL TUNNEL MARILYN, CATARACTS, INGUINAL HERNIA, MARILYN TOTAL KNEES, Bilateral TOTAL HIPs, injections in back for spinal stenosis and cervical injections., pain clinic procedures. Past Anesthesia/Blood Transfusion Reactions: No Reported Reaction, Motion Sickness Past Psychological History: Anxiety, Depression Smoking Status: Never smoker Past Alcohol Use History: None Reported Past Drug Use History: None Reported - Past Family History Mother Additional Family Medical History / Comment(s): heart disease Father Family Medical History: Coronary Artery Disease (CAD), CVA/TIA Additional Family Medical History / Comment(s): heart disease <Arlette Dial - Last Filed: 03/04/24 18:30> General Exam Limitations: no limitations <Arlette Dial - Last Filed: 03/04/24 18:30> General appearance: alert, in no apparent distress Head exam: Present: atraumatic, normocephalic, normal inspection Eye exam: Present: normal appearance, PERRL, EOMI. Absent: scleral icterus, conjunctival injection, periorbital swelling ENT exam: Present: normal exam, mucous membranes moist Neck exam: Present: normal inspection. Absent: tenderness, meningismus, lymphadenopathy Respiratory exam: Present: normal lung sounds bilaterally. Absent: respiratory distress, wheezes, rales, rhonchi, stridor Cardiovascular Exam: Present: regular rate, normal rhythm, normal heart sounds. Absent: systolic murmur, diastolic murmur, rubs, gallop, clicks GI/Abdominal exam: Present: soft, normal bowel sounds. Absent: distended, tenderness, guarding, rebound, rigid Extremities exam: Present: normal inspection, full ROM, normal capillary refill. Absent: tenderness, pedal edema, joint swelling, calf tenderness Back exam: Present: normal inspection Neurological exam: Present: alert, oriented X3, CN II-XII intact Psychiatric exam: Present: normal affect, normal mood Skin exam: Present: warm, dry, intact, normal color. Absent: rash <Levi Pearl - Last Filed: 03/20/24 13:49> - General Exam Comments Initial Comments: Visual Physical Exam Vital signs reviewed General: Well-appearing, nontoxic, no acute distress. Head: Normocephalic, atraumatic Eyes: PERRLA, EOMI ENT: Airway patent Chest: Nonlabored breathing Skin: No visual rash, normal skin tone Neuro: Alert and oriented 3 Musculoskeletal: No gross abnormalities (Stieler,Arlette) Course <Levi Pearl - Last Filed: 03/20/24 13:49> Vital Signs 03/04/24 03/04/24 03/04/24 18:20 21:13 23:26 Temperature 98.3 F Pulse Rate 113 H 98 105 H Pulse Rate [ Pulse Oximetery ] Respiratory 18 18 20 Rate Blood Pressure 144/107 156/102 136/107 Blood Pressure [Left Arm] O2 Sat by Pulse 96 95 98 Oximetry 03/04/24 03/05/24 03/05/24 23:43 00:23 02:00 Temperature Pulse Rate 113 H 109 H 90 Pulse Rate [ Pulse Oximetery ] Respiratory 22 20 Rate Blood Pressure 151/113 165/136 152/118 Blood Pressure [Left Arm] O2 Sat by Pulse 96 97 Oximetry 03/05/24 03/05/24 03/05/24 02:44 04:04 06:17 Temperature 98.2 F Pulse Rate 109 H 108 H 112 H Pulse Rate [ Pulse Oximetery ] Respiratory 20 18 18 Rate Blood Pressure 150/117 136/101 122/112 Blood Pressure [Left Arm] O2 Sat by Pulse 94 L 93 L 95 Oximetry 03/05/24 03/05/24 03/05/24 07:29 15:19 18:12 Temperature 98.2 F 96.7 F L Pulse Rate 111 H Pulse Rate [ 102 H 109 H Pulse Oximetery ] Respiratory 16 18 20 Rate Blood Pressure 134/117 Blood Pressure 129/91 139/96 [Left Arm] O2 Sat by Pulse 96 Oximetry 03/05/24 03/05/24 20:00 22:56 Temperature 98.9 F Pulse Rate Pulse Rate [ 106 H Pulse Oximetery ] Respiratory 18 Rate Blood Pressure Blood Pressure 155/100 131/85 [Left Arm] O2 Sat by Pulse Oximetry - Reevaluation(s) Reevaluation #1: Medical records reviewed (Levi Pearl) Reevaluation #2: Patient symptoms unchanged (Levi Pearl) Reevaluation #3: Patient informed of results questions answered (Levi Pearl) Reevaluation #4: Was pt. sent in by a medical professional or institution (, PA, BELT LOOP MACHINE OPERATOR, urgent care, hospital, or [place] health care facility...) When possible be specific @ -no Did you speak to anyone other than the patient for history (EMS, parent, family, police, friend...)? What history was obtained from this source @ -no Did you review nursing and triage notes (agree or disagree)? Why? @ -agree Are old charts reviewed (outside hosp., previous admission, EMS record, old EKG, old radiological studies, urgent care reports/EKG's, [place] health [facility] facility records)? Report findings @ -yes Differential Diagnosis (chest pain, altered mental status, abdominal pain women, abdominal pain men, vaginal bleeding, weakness, fever, dyspnea, syncope, headache, dizziness, GI bleed, back pain, seizure, CVA, palpatations, mental health, musculoskeletal)? @ -prior EKG interpreted by me (3pts min.). @ -yes X-rays interpreted by me (1pt min.). @ -yes negative for acute disease CT interpreted by me (1pt min.). @ -Yes negative for acute disease U/S interpreted by me (1pt. min.). @ -no What testing was considered but not performed or refused? (CT, X-rays, U/S, labs)? Why? @ -none What meds were considered but not given or refused? Why? @ -none Did you discuss the management of the patient with other professionals (professionals i.e. , PA, BELT LOOP MACHINE OPERATOR, lab, RT, psych nurse, social economist, client strategist, teacher, ground nuclear weapons assembly officer, keycase assembler)? Give summary @ -no Was smoking cessation discussed for >3mins.? @ -no Were there social determinants of health that impacted care today? How? (Homelessness, low income, unemployed, alcoholism, drug addiction, transportation, low edu. Level, literacy, decrease access to med. care, halfway, rehab)? @ -none Was there de-escalation of care discussed even if they declined (Discuss DNR or withdrawal of care, Hospice)? DNR status @ -no What co-morbidities impacted this encounter? (DM, HTN, Smoking, COPD, CAD, Cancer, CVA, ARF, Chemo, Hep., AIDS, mental health diagnosis, sleep apnea, morbid obesity)? @ -none Was patient admitted / discharged? Hospital course, mention meds given and route, prescriptions, significant lab abnormalities, going to OR and other pertinent info. @ - 78 female will be admitted after he became more altered and confused with elevated blood pressure, patient will need to be admitted for significant confusion Admitted Was critical care preformed (if so, how long)? @ -no Undiagnosed new problem with uncertain prognosis? @ -no Drug Therapy requiring intensive monitoring for toxicity (Heparin, Nitro, Insulin, Cardizem)? @ -no Were any procedures done? @ -no Diagnosis/symptom? @ -Confusion, hypertensive, altered mental status Acute, or Chronic, or Acute on Chronic? @ -Acute Uncomplicated (without systemic symptoms) or Complicated (systemic symptoms)? @ -Complicated Side effects of treatment? @ -no Exacerbation, Progression, or Severe Exacerbation? @ -exacerbation Poses a threat to life or bodily function? How? (Chest pain, USA, LA, pneumonia, PE, COPD, DKA, ARF, appy, cholecystitis, CVA, Diverticulitis, Homicidal, Suicidal, threat to staff... and all critical care pts) @ -yes with extremes of age (Levi Pearl) Reevaluation #5: Differential Altered Mental Status: Hypoglycemia, DKA, hypercapnia, ETOH, overdose, CO poisoning, trauma, myxedema coma, HTN encephalopathy, infection, encephalitis, psychosis, intercranial hemorrhage, hepatic encephalopathy, meningitis, CVA, this is not meant to be an all-inclusive list (Levi Pearl) - Consultations Consultation #1: Spoke with admitting physicians who agreed to admit this patient (Levi Pearl) Medical Decision Making <Arlette Dial - Last Filed: 03/04/24 18:30> - Lab Data Result diagrams: 03/15/24 08:07 03/16/24 10:20 <Bro Chand - Last Filed: 03/17/24 04:17> - Lab Data Result diagrams: 03/19/24 07:44 03/19/24 07:44 - EKG Data -: EKG Interpreted by Me (EKG is A-fib with RVR 110 QRS 107 QTc 421) - Radiology Data Radiology results: report reviewed (CT brain and chest x-ray are negative for acute disease), image reviewed <Levi Pearl - Last Filed: 03/20/24 13:49> - Medical Decision Making I completed the quick note portion of this chart signed Arlette Dial PA-C (Arlette Dial) This patient is 78-year-old woman who was initially seen by midlevel practitioner and then by Dr. Pearl, at that point she was felt stable for discharge. While the patient was pending the medication effect of the antihypertensive, she became increasingly disoriented and family stated that this is something completely out of character for her. When I evaluated the patient, she was only oriented to person. She did not know where she was. She did not recognize that her daughter was present, she stated that her mother was with her in the room. As family maintains this is all acute change, patient will be admitted for further evaluation including neurology consultation. Was patient admitted / discharged? Hospital course, mention meds given and route, prescriptions, significant lab abnormalities, going to OR and other pertinent info. @ -[See the above note related to patient's course Undiagnosed new problem with uncertain prognosis? @ -[No] Drug Therapy requiring intensive monitoring for toxicity (Heparin, Nitro, Insulin, Cardizem)? @ -[No] Were any procedures done? @ -[No] Diagnosis/symptom? @ -[Acute altered mental status Acute, or Chronic, or Acute on Chronic? @ -[Acute Uncomplicated (without systemic symptoms) or Complicated (systemic symptoms)? @ -[Uncomplicated Side effects of treatment? @ -[No] Exacerbation, Progression, or Severe Exacerbation? @ -[No] Poses a threat to life or bodily function? How? (Chest pain, USA, LA, pneumonia, PE, COPD, DKA, ARF, appy, cholecystitis, CVA, Diverticulitis, Homicidal, Suicidal, threat to staff... and all critical care pts) @ -[yes (Bro Chand) 78 female will be admitted after he became more altered and confused with ney vated blood pressure, patient will need to be admitted for significant confusion (Levi Pearl) - Lab Data Lab Results 03/04/24 03/04/24 03/04/24 Range/Units 19:21 19:21 19:21 WBC 8.4 (3.8-10.6) k/uL RBC 4.74 (3.80-5.40) m/uL Hgb 14.6 (11.4-16.0) gm/dL Hct 48.3 H (34.0-46.0) % MCV 101.9 H (80.0-100.0) fL MCH 30.8 (25.0-35.0) pg MCHC 30.2 L (31.0-37.0) g/dL RDW 16.9 H (11.5-15.5) % Plt Count 258 (150-450) k/uL MPV 8.6 Neutrophils % 74 % Lymphocytes % 14 % Monocytes % 6 % Eosinophils % 2 % Basophils % 2 % Neutrophils # 6.3 (1.3-7.7) k/uL Lymphocytes # 1.2 (1.0-4.8) k/uL Monocytes # 0.5 (0-1.0) k/uL Eosinophils # 0.2 (0-0.7) k/uL Basophils # 0.2 (0-0.2) k/uL Hypochromasia Slight Anisocytosis Slight Macrocytosis Moderate PT 11.8 (10.0-12.5) sec INR 1.1 (<1.2) APTT 24.9 (22.0-30.0) sec Sodium 138 (137-145) mmol/L Potassium 4.4 (3.5-5.1) mmol/L Chloride 106 (98-107) mmol/L Carbon Dioxide 25 (22-30) mmol/L Anion Gap 7 mmol/L BUN 21 H (7-17) mg/dL Creatinine 1.21 H (0.52-1.04) mg/dL Est GFR (CKD-EPI)AfAm 50 (>60 ml/min/1.73 sqM) Est GFR (CKD-EPI)NonAf 43 (>60 ml/min/1.73 sqM) Glucose 152 H (74-99) mg/dL Calcium 9.6 (8.4-10.2) mg/dL Total Bilirubin 2.3 H (0.2-1.3) mg/dL AST 65 H (14-36) U/L ALT 60 H (4-34) U/L Alkaline Phosphatase 201 H (38-126) U/L Ammonia (<30) umol/L Troponin I (0.000-0.034) ng/mL Total Protein 6.6 (6.3-8.2) g/dL Albumin 4.2 (3.5-5.0) g/dL Urine Color Urine Appearance (Clear) Urine pH (5.0-8.0) Ur Specific [place] (1.001-1.035) Urine Protein (Negative) Urine Glucose (UA) (Negative) Urine Ketones (Negative) Urine Blood (Negative) Urine Nitrite (Negative) Urine Bilirubin (Negative) Urine Urobilinogen (<2.0) mg/dL Ur Leukocyte Esterase (Negative) Urine RBC (0-5) /hpf Urine WBC (0-5) /hpf Ur Squamous Epith Cells (0-4) /hpf Amorphous Sediment (None) /hpf Hyaline Casts (0-2) /lpf Urine Mucus (None) /hpf Urine Opiates Screen (NotDetected) Ur Oxycodone Screen (NotDetected) Urine Methadone Screen (NotDetected) Ur Barbiturates Screen (NotDetected) U Tricyclic Antidepress (NotDetected) Ur Phencyclidine Scrn (NotDetected) Ur Amphetamines Screen (NotDetected) U Methamphetamines Scrn (NotDetected) U Benzodiazepines Scrn (NotDetected) Urine Cocaine Screen (NotDetected) U Marijuana (THC) Screen (NotDetected) 03/04/24 03/04/24 03/04/24 Range/Units 19:21 21:46 21:46 WBC (3.8-10.6) k/uL RBC (3.80-5.40) m/uL Hgb (11.4-16.0) gm/dL Hct (34.0-46.0) % MCV (80.0-100.0) fL MCH (25.0-35.0) pg MCHC (31.0-37.0) g/dL RDW (11.5-15.5) % Plt Count (150-450) k/uL MPV Neutrophils % % Lymphocytes % % Monocytes % % Eosinophils % % Basophils % % Neutrophils # (1.3-7.7) k/uL Lymphocytes # (1.0-4.8) k/uL Monocytes # (0-1.0) k/uL Eosinophils # (0-0.7) k/uL Basophils # (0-0.2) k/uL Hypochromasia Anisocytosis Macrocytosis PT (10.0-12.5) sec INR (<1.2) APTT (22.0-30.0) sec Sodium (137-145) mmol/L Potassium (3.5-5.1) mmol/L Chloride (98-107) mmol/L Carbon Dioxide (22-30) mmol/L Anion Gap mmol/L BUN (7-17) mg/dL Creatinine (0.52-1.04) mg/dL Est GFR (CKD-EPI)AfAm (>60 ml/min/1.73 sqM) Est GFR (CKD-EPI)NonAf (>60 ml/min/1.73 sqM) Glucose (74-99) mg/dL Calcium (8.4-10.2) mg/dL Total Bilirubin (0.2-1.3) mg/dL AST (14-36) U/L ALT (4-34) U/L Alkaline Phosphatase (38-126) U/L Ammonia (<30) umol/L Troponin I 0.015 (0.000-0.034) ng/mL Total Protein (6.3-8.2) g/dL Albumin (3.5-5.0) g/dL Urine Color Light Yellow Urine Appearance Clear (Clear) Urine pH 5.5 (5.0-8.0) Ur Specific [place] 1.013 (1.001-1.035) Urine Protein 1+ H (Negative) Urine Glucose (UA) Negative (Negative) Urine Ketones Negative (Negative) Urine Blood Negative (Negative) Urine Nitrite Negative (Negative) Urine Bilirubin Negative (Negative) Urine Urobilinogen <2.0 (<2.0) mg/dL Ur Leukocyte Esterase Small H (Negative) Urine RBC 1 (0-5) /hpf Urine WBC 3 (0-5) /hpf Ur Squamous Epith Cells 2 (0-4) /hpf Amorphous Sediment Few H (None) /hpf Hyaline Casts 8 H (0-2) /lpf Urine Mucus Rare H (None) /hpf Urine Opiates Screen Not Detected (NotDetected) Ur Oxycodone Screen Not Detected (NotDetected) Urine Methadone Screen Not Detected (NotDetected) Ur Barbiturates Screen Not Detected (NotDetected) U Tricyclic Antidepress Not Detected (NotDetected) Ur Phencyclidine Scrn Not Detected (NotDetected) Ur Amphetamines Screen Not Detected (NotDetected) U Methamphetamines Scrn Not Detected (NotDetected) U Benzodiazepines Scrn Detected H (NotDetected) Urine Cocaine Screen Not Detected (NotDetected) U Marijuana (THC) Screen Not Detected (NotDetected) 03/04/24 Range/Units 22:02 WBC (3.8-10.6) k/uL RBC (3.80-5.40) m/uL Hgb (11.4-16.0) gm/dL Hct (34.0-46.0) % MCV (80.0-100.0) fL MCH (25.0-35.0) pg MCHC (31.0-37.0) g/dL RDW (11.5-15.5) % Plt Count (150-450) k/uL MPV Neutrophils % % Lymphocytes % % Monocytes % % Eosinophils % % Basophils % % Neutrophils # (1.3-7.7) k/uL Lymphocytes # (1.0-4.8) k/uL Monocytes # (0-1.0) k/uL Eosinophils # (0-0.7) k/uL Basophils # (0-0.2) k/uL Hypochromasia Anisocytosis Macrocytosis PT (10.0-12.5) sec INR (<1.2) APTT (22.0-30.0) sec Sodium (137-145) mmol/L Potassium (3.5-5.1) mmol/L Chloride (98-107) mmol/L Carbon Dioxide (22-30) mmol/L Anion Gap mmol/L BUN (7-17) mg/dL Creatinine (0.52-1.04) mg/dL Est GFR (CKD-EPI)AfAm (>60 ml/min/1.73 sqM) Est GFR (CKD-EPI)NonAf (>60 ml/min/1.73 sqM) Glucose (74-99) mg/dL Calcium (8.4-10.2) mg/dL Total Bilirubin (0.2-1.3) mg/dL AST (14-36) U/L ALT (4-34) U/L Alkaline Phosphatase (38-126) U/L Ammonia <9 (<30) umol/L Troponin I (0.000-0.034) ng/mL Total Protein (6.3-8.2) g/dL Albumin (3.5-5.0) g/dL Urine Color Urine Appearance (Clear) Urine pH (5.0-8.0) Ur Specific [place] (1.001-1.035) Urine Protein (Negative) Urine Glucose (UA) (Negative) Urine Ketones (Negative) Urine Blood (Negative) Urine Nitrite (Negative) Urine Bilirubin (Negative) Urine Urobilinogen (<2.0) mg/dL Ur Leukocyte Esterase (Negative) Urine RBC (0-5) /hpf Urine WBC (0-5) /hpf Ur Squamous Epith Cells (0-4) /hpf Amorphous Sediment (None) /hpf Hyaline Casts (0-2) /lpf Urine Mucus (None) /hpf Urine Opiates Screen (NotDetected) Ur Oxycodone Screen (NotDetected) Urine Methadone Screen (NotDetected) Ur Barbiturates Screen (NotDetected) U Tricyclic Antidepress (NotDetected) Ur Phencyclidine Scrn (NotDetected) Ur Amphetamines Screen (NotDetected) U Methamphetamines Scrn (NotDetected) U Benzodiazepines Scrn (NotDetected) Urine Cocaine Screen (NotDetected) U Marijuana (THC) Screen (NotDetected) Disposition <Arlette Dial - Last Filed: 03/04/24 18:30> Is patient prescribed a controlled substance at d/c from ED?: No <Bro Chand - Last Filed: 03/17/24 04:17> Is patient prescribed a controlled substance at d/c from ED?: No <Levi Pearl - Last Filed: 03/20/24 13:49> Clinical Impression: Altered mental status, Hypertension Disposition: ADMITTED IP TO THIS HOSP Condition: Fair
[2024-03-04] MEDS: SODIUM CHLORIDE 0.9% 1,000 ML IV STA (19:31)
[2024-03-04 19:43] LABS: Anisocytosis Slight; Basophils # (A) 0.2 k/uL (0-0.2); Basophils % (A) 2 %; Eosinophils # (A) 0.2 k/uL (0-0.7); Eosinophils % (A) 2 %; HCT 48.3 % (34.0-46.0); HGB 14.6 gm/dL (11.4-16.0); Hypochromasia Slight; Lymphocytes # (A) 1.2 k/uL (1.0-4.8); Lymphocytes % (A) 14 %; MCH 30.8 pg (25.0-35.0); MCHC 30.2 g/dL (31.0-37.0); MCV 101.9 fL (80.0-100.0); Macrocytosis Moderate; Mean Platelet Volume 8.6; Monocytes # (A) 0.5 k/uL (0-1.0); Monocytes % (A) 6 %; Neutrophils # (A) 6.3 k/uL (1.3-7.7); Neutrophils % (A) 74 %; Platelet Count 258 k/uL (150-450); RBC 4.74 m/uL (3.80-5.40); RDW 16.9 % (11.5-15.5); WBC 8.4 k/uL (3.8-10.6)
[2024-03-04 19:54] LABS: INR 1.1 (<1.2); Partial Thromboplastin Time 24.9 sec (22.0-30.0); Prothrombin Time 11.8 sec (10.0-12.5)
[2024-03-04 19:58] LABS: ALT 60 U/L (4-34); AST 65 U/L (14-36); African American GFR (CKD) 50 (>60 ml/min/1.73 sqM); Albumin 4.2 g/dL (3.5-5.0); Alkaline Phosphatase 201 U/L (38-126); Anion Gap 7 mmol/L; Blood Urea Nitrogen 21 mg/dL (7-17); Calcium 9.6 mg/dL (8.4-10.2); Carbon Dioxide 25 mmol/L (22-30); Chloride 106 mmol/L (98-107); Glucose 152 mg/dL (74-99); Non-African American GFR(CKD) 43 (>60 ml/min/1.73 sqM); Potassium 4.4 mmol/L (3.5-5.1); Sodium 138 mmol/L (137-145); Total Bilirubin 2.3 mg/dL (0.2-1.3); Total Protein 6.6 g/dL (6.3-8.2)
--- NOTE | 2024-03-04 20:35 | XR ---
EXAMINATION TYPE: XR chest 2V DATE OF EXAM: 03/04/2024 8:22 PM CLINICAL INDICATION:Female, 78 years old with history of altered mental status; [facility] COMPARISON: Chest radiographs from 12/06/2023 TECHNIQUE: XR chest 2V Frontal and lateral views of the chest. FINDINGS: Lungs/Pleura: There is flattening of the diaphragm with increased lucency of the lungs. No evidence o f pneumothorax, pleural effusion or focal consolidation. Pulmonary vascularity: Unremarkable. Heart/mediastinum: Cardiomediastinal silhouette is enlarged and stable. Atherosclerotic calcificatio ns are seen in the aorta. Musculoskeletal: Degenerative changes of the shoulder joints. IMPRESSION: 1. Cardiomegaly. 2. COPD changes.
--- NOTE | 2024-03-04 21:59 | CT ---
EXAMINATION TYPE: CT brain wo con CT DLP: 1137.4 mGycm, Automated exposure control for dose reduction was used. DATE OF EXAM: 03/04/2024 9:42 PM COMPARISON: 02/20/2024. CLINICAL INDICATION:Female, 78 years old with history of ams, AMS TECHNIQUE: Brain: Axial CT images of the brain were obtained with coronal and sagittal reformats created and rev iewed. Contrast used: None. Oral contrast used: None. FINDINGS: Brain: Extra-axial spaces: No abnormal extra-axial fluid collections. Ventricular system: Dilatation in proportion to cerebral atrophy. Cerebral parenchyma: Hypodense areas within the left periventricular white matter of the frontal lobe and anterior limb of the internal capsule. These are unchanged. Cerebral atrophy. No acute intrapare nchymal hemorrhage or mass effect. The garrison-white junction is well differentiated. Scattered hypoatt enuating areas are seen within the white matter. Cerebellum: Unremarkable. Mass effect: No evidence of midline shift. Intracranial vasculature: unremarkable Soft tissues: Normal. Calvarium/osseous structures: No depressed skull fracture. Paranasal sinuses and mastoid air cells: Mild scattered paranasal sinus disease. Visualized orbits: Bilaterally aphakia. IMPRESSION: 1. No acute intracranial process. 2. Remote left periventricular white matter injuries. Nonspecific white matter changes, likely second elzbieta to chronic small vessel ischemic disease.
[2024-03-04 22:24] LABS: Amorphous Sediment,Urine Few /hpf; Appearance,Urine Clear (Clear); Bilirubin,Urine Negative (Negative); Blood,Urine Negative (Negative); Color,Urine Light Yellow; Glucose,Urine (UA) Negative (Negative); Hyaline Casts,Urine 8 /lpf (0-2); Ketones,Urine Negative (Negative); Leukocyte Esterase,Urine Small (Negative); Mucus,Urine Rare /hpf; Nitrite,Urine Negative (Negative); PH, Urine 5.5 (5.0-8.0); Protein,Urine 1+ (Negative); RBC,Urine 1 /hpf (0-5); Specific Gravity,Urine 1.013 (1.001-1.035); Squamous Epithelial Cell,Urine 2 /hpf (0-4); Urobilinogen,Urine <2.0 mg/dL (<2.0); WBC,Urine 3 /hpf (0-5)
[2024-03-04 22:31] LABS: Amphetamine Screen,Urine Not Detected (NotDetected); Barbiturate Screen,Urine Not Detected (NotDetected); Benzodiazepines Screen,Urine Detected (NotDetected); Cocaine Screen,Urine Not Detected (NotDetected); Methadone Screen, Urine Not Detected (NotDetected); Opiate Screen,Urine Not Detected (NotDetected); Oxycodone Screen, Urine Not Detected (NotDetected); Phencyclidine Screen,Urine Not Detected (NotDetected); Tricyclic Antidepressant,Urine Not Detected (NotDetected); Urn Cannabinoid Scrn Not Detected (NotDetected)
[2024-03-04] MEDS: METOPROLOL TARTRATE 5 MG/5 ML VIAL IVP STA (23:34)
[2024-03-05] MEDS: LOSARTAN 25 MG TAB PO STA (01:33)
[2024-03-05] MEDS: ALPRAZolam 0.5 MG TAB PO STA (01:33)
[2024-03-05] MEDS: METOPROLOL SUCCINATE (ER) 100 MG TAB.ER.24H PO STA (01:33)
[2024-03-05] MEDS ORDERED: MAG HYDROX/AL HYDROX/SIMETH 30 ML CUP PO PRN (02:33)
[2024-03-05] MEDS ORDERED: NALOXONE 0.4 MG/ML 1 ML VIAL IV PRN (02:33)
[2024-03-05] MEDS: SODIUM CHLORIDE 0.9% 1,000 ML IV SCH (03:23)
[2024-03-05] MEDS: MELATONIN 3 MG TABLET PO PRN (03:44)
[2024-03-05 04:19] LABS: Glucose,Whole Blood 151 mg/dL (70-110)
[2024-03-05] MEDS: ACETAMINOPHEN TAB 325 MG TAB PO PRN (04:25)
[2024-03-05] MEDS: QUEtiapine 25 MG TAB PO STA (05:41)
--- NOTE | 2024-03-05 06:44 | P.HPIM ---
History of Present Illness H&P Date: 03/05/24 Chief Complaint: altered mental status 78-year-old female with hypertension hyperlipidemia history of A-fib Patient is unable to provide any meaningful history at this time she seems to be disoriented. She responds to her name she is moving spontaneously but looks uncomfortable and irritable she does not follow commands History obtained by reviewing ER notes she was brought in by family for concerns regarding disorientation and confusion they deny any history of dementia they claimed that this happened all of a sudden she was accompanied by her daughter and . They recall that she was recently started on some antibiotics for presumed UTI about 2 weeks ago, over the past few days she has been having increased confusion and urinary incontinence No further history available at this time While patient in the ED she has been screaming uncontrollably and seems very irritable but then she will get lucid periods in between where she would briefly follow commands and make good eye contact and then becomes irritable again Imaging done in the ED with CT of the brain showed no acute intracranial pathology however did notice some chronic small vessel i ischemic changes Patient nurse noted that she presented with bedbugs and she had to be decontaminated review of systems Unable to obtain due to mental status on exam Constitutional: Irritable restless with lucid periods where she would make good eye contact and respond to her name Eyes: Anicteric sclerae, moist conjunctiva, Pupils equal round reactive to light Neck: Supple, no masses, or JVD No carotid bruits No thyromegaly Lungs: Clear to auscultation Clear to percussion Normal respiratory effort, no accessory muscle use Cardiovascular: Heart regular in rate and rhythm, No murmurs, gallops, or rubs +1 bilateral peripheral edema Abdominal: Soft Nontender, no guarding, rebound or rigidity Abdomen moving with respiration Normoactive bowel sounds Skin: Multiple shallow ulcers from skin picking due to possible bedbugs Extremities: No digital cyanosis No clubbing Pedal pulses intact on the left foot weak on the right foot capillary refill immediate Radial pulses intact and symmetrical No calf tenderness Psychiatric: Disoriented irritable and restless Neuro unable to perform proper neuroexam due to patient disorientation and confusion fails to follow commands, patient moving all 4 extremities spontaneously Past Medical History Past Medical History: Atrial Fibrillation, Hyperlipidemia, Hypertension Additional Past Medical History / Comment(s): Sleep Apnea (no machine not working), hx of septicemia, neck, back and shoulder pain, uses cane and rolling walker prn, gout . pt states recent SOB, weakness,. Bed Bugs (03/04/24) History of Any Multi-Drug Resistant Organisms: None Reported Past Surgical History: Adenoidectomy, Bariatric Surgery, Cholecystectomy, Hernia Repair, Joint Replacement, Tonsillectomy Additional Past Surgical History / Comment(s): GASTRIC SLEEVE (2010- DR MENDEZ), CARPAL TUNNEL MARILYN, CATARACTS, INGUINAL HERNIA, MARILYN TOTAL KNEES, Bilateral TOTAL HIPs, injections in back for spinal stenosis and cervical injections., pain clinic procedures. Past Anesthesia/Blood Transfusion Reactions: No Reported Reaction, Motion Sic kness Past Psychological History: Anxiety, Depression Smoking Status: Never smoker Past Alcohol Use History: None Reported Past Drug Use History: None Reported - Past Family History Mother Additional Family Medical History / Comment(s): heart disease Father Family Medical History: Coronary Artery Disease (CAD), CVA/TIA Additional Family Medical History / Comment(s): heart disease Medications and Allergies Home Medications Medication Instructions Recorded Confirmed Type ALPRAZolam [Xanax] 0.25 mg PO BID PRN 08/02/20 03/04/24 History FLUoxetine HCL [PROzac] 60 mg PO DAILY 08/02/20 03/04/24 History Multivitamins, Thera [Multivitamin 1 tab PO DAILY 08/02/20 03/04/24 History (formulary)] Zafirlukast [Accolate] 20 mg PO BID 08/02/20 03/04/24 History allopurinoL [Zyloprim] 300 mg PO HS 08/02/20 03/04/24 History Levothyroxine Sodium [Synthroid] 50 mcg PO DAILY 02/09/22 03/04/24 History Apixaban [Eliquis] 5 mg PO BID #60 tab 10/16/23 03/04/24 Rx Furosemide [Lasix] 40 mg PO DAILY 11/01/23 03/04/24 History Atorvastatin [Lipitor] 40 mg PO HS #90 tablet 11/08/23 03/04/24 Rx Clopidogrel [Plavix] 75 mg PO DAILY #90 tab 11/08/23 03/04/24 Rx Nitroglycerin Sl Tabs [Nitrostat] 0.4 mg SUBLINGUAL Q5M PRN #100 tab 11/08/23 03/04/24 Rx Metoprolol Succinate [Toprol XL] 100 mg PO DAILY #90 tab 11/29/23 03/04/24 Rx Cholecalciferol [Vitamin D3 (25 50 mcg PO DAILY 03/04/24 03/04/24 History Mcg = 1000 Iu)] Losartan [Cozaar] 25 mg PO HS 03/04/24 03/04/24 History Spironolactone [Aldactone] 25 mg PO DAILY 03/04/24 03/04/24 History Allergies Allergy/AdvReac Type Severity Reaction Status Date / Time sulfamethoxazole AdvReac Unknown STOMACH Verified 03/04/24 19:57 [From Bactrim] PAIN trimethoprim [From Bactrim] AdvReac Unknown STOMACH Verified 03/04/24 19:57 PAIN HORSE SERUM TETANAS Allergy Severe Anaphylaxis Uncoded 02/20/24 06:57 Novacaine Allergy Anaphylaxis Uncoded 02/20/24 06:57 Physical Exam Vitals: Vital Signs Temp Pulse Resp BP Pulse Ox 03/05/24 06:17 112 H 18 122/112 95 03/05/24 04:04 98.2 F 108 H 18 136/101 93 L 03/05/24 02:44 109 H 20 150/117 94 L 03/05/24 02:00 90 20 152/118 97 03/05/24 00:23 109 H 22 165/136 96 03/04/24 23:43 113 H 151/113 03/04/24 23:26 105 H 20 136/107 98 03/04/24 21:13 98 18 156/102 95 03/04/24 18:20 98.3 F 113 H 18 144/107 96 Intake and Output 03/04/24 03/04/24 03/05/24 14:59 22:59 06:59 Other: Weight 90.718 kg Results CBC & Chem 7: 03/04/24 19:21 03/04/24 19:21 Labs: Abnormal Lab Results - Last 24 Hours (Table) 03/04/24 03/04/24 03/04/24 Range/Units 19:21 19:21 21:46 Hct 48.3 H (34.0-46.0) % MCV 101.9 H (80.0-100.0) fL MCHC 30.2 L (31.0-37.0) g/dL RDW 16.9 H (11.5-15.5) % BUN 21 H (7-17) mg/dL Creatinine 1.21 H (0.52-1.04) mg/dL Glucose 152 H (74-99) mg/dL POC Glucose (mg/dL) (70-110) mg/dL Total Bilirubin 2.3 H (0.2-1.3) mg/dL AST 65 H (14-36) U/L ALT 60 H (4-34) U/L Alkaline Phosphatase 201 H (38-126) U/L Urine Protein 1+ H (Negative) Ur Leukocyte Esterase Small H (Negative) Amorphous Sediment Few H (None) /hpf Hyaline Casts 8 H (0-2) /lpf Urine Mucus Rare H (None) /hpf U Benzodiazepines Scrn (NotDetected) 03/04/24 03/05/24 Range/Units 21:46 04:17 Hct (34.0-46.0) % MCV (80.0-100.0) fL MCHC (31.0-37.0) g/dL RDW (11.5-15.5) % BUN (7-17) mg/dL Creatinine (0.52-1.04) mg/dL Glucose (74-99) mg/dL POC Glucose (mg/dL) 151 H (70-110) mg/dL Total Bilirubin (0.2-1.3) mg/dL AST (14-36) U/L ALT (4-34) U/L Alkaline Phosphatase (38-126) U/L Urine Protein (Negative) Ur Leukocyte Esterase (Negative) Amorphous Sediment (None) /hpf Hyaline Casts (0-2) /lpf Urine Mucus (None) /hpf U Benzodiazepines Scrn Detected H (NotDetected) Assessment and Plan Assessment: 78-year-old female with history of A-fib, hypertension, coming in for evaluation of confusion and disorientation family reports recent diagnosis of UTI she was on antibiotics unknown time I discussed the case with ED doctor and accepted the admission for altered mental status for neuro evaluation and further workup with anticipated length of stay less than 2 midnights Altered mental status not clear underlying cause Suspected progressive vascular dementia, versus metabolic encephalopathy CT of the brain no acute intracranial pathology but revealed white matter small vessel chronic ischemic changes Bedside sitter for safety Seroquel 25 mg p.o. once Neuro consult Continue with Plavix and statin Blood work revealed stable chronic kidney disease with sodium 138 potassium 4.4 BUN 21 creatinine 1.2 Elevated liver enzymes with bilirubin of 2.3 AST 65 ALT 60 alkaline phosphatase 201 Check abdominal ultrasound rule out biliary stones Tropes negative UA negative White count 8 hemoglobin 14.5 Hypothyroid Continue with levothyroxine Hypertension Continue with losartan metoprolol and spironolactone Paroxysmal A-fib Continue with metoprolol and Eliquis Full code DVT prophylaxis on Eliquis for A-fib
--- NOTE | 2024-03-05 08:09 | US ---
EXAMINATION TYPE: US liver DATE OF EXAM: 03/05/2024 COMPARISON: NONE CLINICAL INDICATION: Female, 78 years old with history of elevated liver enzymes rule out stones; Pat ient very combative and confused, here with AMS, elevated labs, she does not answer questioning, chol ecystomy TECHNIQUE: Multiple sonographic images of the right upper quadrant are obtained. FINDINGS: EXAM MEASUREMENTS: Liver Length: 17.8 cm Gallbladder Wall: Surgically absent CBD: 0.8 cm Right Kidney: 8.6 x 4.3 x 4.5 cm [employer] NOTES: Patient was unable to tolerate exam by the end Pancreas: wnl Liver: wnl Gallbladder: Surgically absent Evidence for sonographic Marvin's sign: no CBD: wnl Right Kidney: 0.9cm cyst seen mid pole Exam somewhat limited due to intolerance of exam IMPRESSION: 1. Small right renal cyst
[2024-03-05] MEDS: FAMOTIDINE 20 MG TAB PO SCH (08:58)
[2024-03-05] MEDS: SPIRONOLACTONE 25 MG TAB PO SCH (08:58)
[2024-03-05] MEDS: LEVOTHYROXINE 50 MCG TAB PO SCH (08:58)
[2024-03-05] MEDS: APIXABAN 5 MG TAB PO SCH (08:58)
[2024-03-05] MEDS: CLOPIDOGREL 75 MG TAB PO SCH (08:58)
[2024-03-05] MEDS: METOPROLOL SUCCINATE (ER) 100 MG TAB.ER.24H PO SCH (08:58)
[2024-03-05] MEDS: ALPRAZolam 0.25 MG TAB PO PRN (11:53)
--- NOTE | 2024-03-05 14:42 | P.PN ---
Subjective Progress Note Date: 03/05/24 Patient is a 79-year-old female with a past medical history of hypertension, hyperlipidemia and atrial fibrillation who presents to the ED with worsening altered mental status for the past 2 weeks. Per family patient was recently being treated for UTI. In the ED CT head was unremarkable. Patient's labs were mainly remarkable for elevated LFTs. Abdominal ultrasound was unremarkable and only showed small renal cyst. Her UA was negative for UTI. Patient was admitted to the medicine service with neurology consultation. Patient was seen today. She is delirious. Daughter was at bedside. Per brian hudson patient's mental status is worse than when she came in. Per daughter patient has been on Xanax for many years. Per daughter the only change in medication was patient restarting her spironolactone. Physical exam General examination - Alert and Oriented 0 Heart - + S1S2 no murmurs Lungs - Clear to auscultation Abdomen soft NT ND +ve BS Extremities - No edema CPHT -patient is delirious, she is not following any commands. Patient is moving all 4 extremities Psych - Calm and cooperative Assessment and plan Acute encephalopathy. Could be due to progressing vascular dementia One-to-one sitter Will increase Seroquel to 50 mg at bedtime UDS only positive for benzodiazepine. Patient does take Xanax at home UA negative for UTI Check TSH with T4 Check ammonia level Will continue with the home dose Xanax as needed Neurology consult Transaminitis and hyperbilirubinemia Suspect due to fatty liver Abdominal ultrasound was unremarkable Trend CMP Chronic disease stage II Renal function is stable Hypothyroidism Continue levothyroxine Check TSH with free T4 Hypertension Continue with losartan metoprolol and spironolactone Paroxysmal atrial fibrillation Continue metoprolol and Eliquis Full code DVT prophylaxis: Eliquis Objective - Vital Signs Vital signs: Vital Signs Temp 98.2 F 03/05/24 04:04 Pulse 111 H 03/05/24 07:29 Resp 16 03/05/24 07:29 BP 134/117 03/05/24 07:29 Pulse Ox 95 03/05/24 06:17 FiO2 Intake & Output 03/04/24 03/05/24 03/05/24 18:59 06:59 18:59 Weight 90.718 kg - Labs CBC & Chem 7: 03/04/24 19:21 03/04/24 19:21 Labs: Abnormal Lab Results - Last 24 Hours (Table) 03/04/24 03/04/24 03/04/24 Range/Units 19:21 19:21 21:46 Hct 48.3 H (34.0-46.0) % MCV 101.9 H (80.0-100.0) fL MCHC 30.2 L (31.0-37.0) g/dL RDW 16.9 H (11.5-15.5) % BUN 21 H (7-17) mg/dL Creatinine 1.21 H (0.52-1.04) mg/dL Glucose 152 H (74-99) mg/dL POC Glucose (mg/dL) (70-110) mg/dL Total Bilirubin 2.3 H (0.2-1.3) mg/dL AST 65 H (14-36) U/L ALT 60 H (4-34) U/L Alkaline Phosphatase 201 H (38-126) U/L Urine Protein 1+ H (Negative) Ur Leukocyte Esterase Small H (Negative) Amorphous Sediment Few H (None) /hpf Hyaline Casts 8 H (0-2) /lpf Urine Mucus Rare H (None) /hpf U Benzodiazepines Scrn (NotDetected) 03/04/24 03/05/24 Range/Units 21:46 04:17 Hct (34.0-46.0) % MCV (80.0-100.0) fL MCHC (31.0-37.0) g/dL RDW (11.5-15.5) % BUN (7-17) mg/dL Creatinine (0.52-1.04) mg/dL Glucose (74-99) mg/dL POC Glucose (mg/dL) 151 H (70-110) mg/dL Total Bilirubin (0.2-1.3) mg/dL AST (14-36) U/L ALT (4-34) U/L Alkaline Phosphatase (38-126) U/L Urine Protein (Negative) Ur Leukocyte Esterase (Negative) Amorphous Sediment (None) /hpf Hyaline Casts (0-2) /lpf Urine Mucus (None) /hpf U Benzodiazepines Scrn Detected H (NotDetected)
[2024-03-05 16:42] LABS: T4, Free (Free Thyroxine) 1.76 ng/dL (0.78-2.19)
--- NOTE | 2024-03-05 21:01 | P.CNNES ---
History of Present Illness Consult date: 03/05/24 Requesting physician: Bro Chand Reason for Consult: Acute altered mental status History of Present Illness: Patient is a 78-year-old right-handed female came to the hospital yesterday at 6:11 PM for altered mental status. Patient's son, patient's daughter and son-in-law were present who provided with a history, as patient is completely confused, delirious. Patient's family mentions that for the past few weeks to a month, the memory is getting worse. About 4 weeks ago she developed confusion, and was diagnosed with UTI on 02/20/2024 started on antibiotics. However this was not the right antibiotic and was changed to another antibiotic on 02/25/2024. Patient has been throwing up when she eats for the last couple months, trouble keeping food down. Patient has been having hallucinations for the past 1 month, she sees kids, cats, dogs, and a person who is "playing ". He sometimes see flashlight tags. Family took the patient to her primary physician at 4 PM yesterday where she was falling asleep in the office. She was recommended to go to the hospital, and family brought her here. Since arrival to the hospital patient's mentation has further gone worse. Yesterday she was able to walk and talk, but today she is not able to do these tasks. She is not able to drink any fluid, or food. Her mentation is getting worse and she is not able to talk. She is twitching, irritable. Patient at present denies headache, or any pain anywhere (by nodding "no"). Family denies any history of slurred speech facial droop focal weakness numbness or any strokelike symptoms. Vital signs on arrival blood pressure 144/107, pulse rate 1 and 13, temperature 98.3. Patient's blood pressure has been running high, 134/117. The most recent is 139/96. Blood test shows normal CBC with elevated MCV 101.9. PT PTT normal, electrolytes are normal, BUN 21 creatinine 1.1. AST is 65, ALT 60, ammonia is normal, thyroid functions with TSH elevated 14.9, normal free T41.76. UA is negative. Urine drug screen positive for benzodiazepine. EKG shows atrial fibrillation with rapid ventricular rate. Chest x-ray shows cardiomegaly with COPD changes. CT head revealed no acute intracranial process. Remote left periventricular white matter injuries. Nonspecific white matter changes, likely secondary to chronic small vessel ischemic disease. I personally reviewed CT head agree with the findings. Ultrasound of the liver shows small right renal cyst. Patient's 2D echo from 10/10/2023 shows technically limited study. Left ventricle is enlarged with global decrease in contractility estimated ejection fraction is 25%. Both atria are enlarged. Moderate pulmonary hypertension. Moderate MR. She has been using walker for couple years related to her knee surgery, fall and his hip issues. No previous history of strokes or TIA. She is a non-smoker, does not drink alcohol. Family members denies any previous history of dementia except for forgetfulness that has been going on for last 1 month, progressively getting worse Patient was diagnosed with atrial fibrillation several months ago. She was treated with medication for 3 months. She is still in atrial fibrillation, currently on Eliquis. Review of Systems As per report from the family members. Constitutional: Denies chills, Denies fever Eyes: denies blurred vision, denies diplopia, denies pain, denies loss of vision Ears: bilateral: decreased hearing (Aids), deny: earache Ears, nose, mouth and throat: Denies headache, Denies sore throat, Denies vertigo Cardiovascular: Reports shortness of breath, Denies chest pain, Denies lightheadedness Respiratory: Reports excessive sputum, Denies cough Gastrointestinal: Reports nausea, Reports vomiting, Denies abdominal pain, Denies diarrhea Genitourinary: Reports mixed incontinence (last week), Denies dysuria, Denies hematuria Musculoskeletal: Reports low back pain, Denies neck pain Neurological: Reports as per HPI Psychiatric: Reports anxiety, Reports depression Past Medical History Past Medical History: Atrial Fibrillation, Hyperlipidemia, Hypertension Additional Past Medical History / Comment(s): Sleep Apnea (no machine not working), hx of septicemia, neck, back and shoulder pain, uses cane and rolling walker prn, gout . pt states recent SOB, weakness,. Bed Bugs (03/04/24) History of Any Multi-Drug Resistant Organisms: None Reported Past Surgical History: Adenoidectomy, Bariatric Surgery, Cholecystectomy, Hernia Repair, Joint Replacement, Tonsillectomy Additional Past Surgical History / Comment(s): GASTRIC SLEEVE (2010- DR MENDEZ), CARPAL TUNNEL MARILYN, CATARACTS, INGUINAL HERNIA, MARILYN TOTAL KNEES, Bilateral TOTAL HIPs, injections in back for spinal stenosis and cervical injections., pain clinic procedures. Past Anesthesia/Blood Transfusion Reactions: No Reported Reaction, Motion Sickness Past Psychological History: Anxiety, Depression Smoking Status: Never smoker Past Alcohol Use History: None Reported Past Drug Use History: None Reported - Past Family History Mother Additional Family Medical History / Comment(s): heart disease Father Family Medical History: Coronary Artery Disease (CAD), CVA/TIA Additional Family Medical History / Comment(s): heart disease Medications and Allergies Home Medications Medication Instructions Recorded Confirmed Type ALPRAZolam [Xanax] 0.25 mg PO BID PRN 08/02/20 03/04/24 History FLUoxetine HCL [PROzac] 60 mg PO DAILY 08/02/20 03/04/24 History Multivitamins, Thera [Multivitamin 1 tab PO DAILY 08/02/20 03/04/24 History (formulary)] Zafirlukast [Accolate] 20 mg PO BID 08/02/20 03/04/24 History allopurinoL [Zyloprim] 300 mg PO HS 08/02/20 03/04/24 History Levothyroxine Sodium [Synthroid] 50 mcg PO DAILY 02/09/22 03/04/24 History Apixaban [Eliquis] 5 mg PO BID #60 tab 10/16/23 03/04/24 Rx Furosemide [Lasix] 40 mg PO DAILY 11/01/23 03/04/24 History Atorvastatin [Lipitor] 40 mg PO HS #90 tablet 11/08/23 03/04/24 Rx Clopidogrel [Plavix] 75 mg PO DAILY #90 tab 11/08/23 03/04/24 Rx Nitroglycerin Sl Tabs [Nitrostat] 0.4 mg SUBLINGUAL Q5M PRN #100 tab 11/08/23 03/04/24 Rx Metoprolol Succinate [Toprol XL] 100 mg PO DAILY #90 tab 11/29/23 03/04/24 Rx Cholecalciferol [Vitamin D3 (25 50 mcg PO DAILY 03/04/24 03/04/24 History Mcg = 1000 Iu)] Losartan [Cozaar] 25 mg PO HS 03/04/24 03/04/24 History Spironolactone [Aldactone] 25 mg PO DAILY 03/04/24 03/04/24 History Allergies Allergy/AdvReac Type Severity Reaction Status Date / Time sulfamethoxazole AdvReac Unknown STOMACH Verified 03/04/24 19:57 [From Bactrim] PAIN trimethoprim [From Bactrim] AdvReac Unknown STOMACH Verified 03/04/24 19:57 PAIN HORSE SERUM TETANAS Allergy Severe Anaphylaxis Uncoded 02/20/24 06:57 Novacaine Allergy Anaphylaxis Uncoded 02/20/24 06:57 Physical Examination - Vital Signs Vital Signs: Vital Signs Temp Pulse Pulse Resp BP BP Pulse Ox 03/05/24 18:12 96.7 F L 109 H 20 139/96 03/05/24 15:19 98.2 F 102 H 18 129/91 96 03/05/24 07:29 111 H 16 134/117 03/05/24 06:17 112 H 18 122/112 95 03/05/24 04:04 98.2 F 108 H 18 136/101 93 L 03/05/24 02:44 109 H 20 150/117 94 L 03/05/24 02:00 90 20 152/118 97 03/05/24 00:23 109 H 22 165/136 96 03/04/24 23:43 113 H 151/113 03/04/24 23:26 105 H 20 136/107 98 03/04/24 21:13 98 18 156/102 95 Patient is an elderly female, who is obviously encephalopathic, delirious. Patient is having some myoclonic jerks noted intermittently. Patient is very encephalopathic. She is keeping her eyes closed. On calling her name loudly, she does open her eyes, makes slight eye contact, but does not speak. Patient not able to tell me her name, city or month or the year. Patie nt not verbalizing, sometimes moans. Attention, concentration are severely limited and fund of knowledge cannot be assessed due to mentation. On cranial nerve examination, pupils are equal, round and reacting to light. Her gaze was midline. She does move her eyes to the sides. Visual arthur could not be tested because of noncooperation. Face is symmetric, did not protrude her tongue to be checked. Lower cranial nerves cannot be checked mentation. On muscle strength testing, patient did not allow to check for pronator drift, she brings her arms down very soon but equally. She is moving all 4 extremities randomly, but does not follow directions. She did make the furnace roaster about 4, and biceps were equal. She withdraws to painful stimuli bilaterally. Deep tendon reflexes are symmetric (right/left) [] Sensory to touch cannot be assessed, but she withdraws to painful stimuli equally. Cerebellar function cannot be tested because of noncooperation. Tone and bulk of muscles normal. I did not notice any obvious myoclonic jerks of outstretched hands. Gait deferred.. On general examination, there is no carotid bruit or murmur, S1-S2 audible. Chest is clear on consultation. Abdomen is soft nontender. No organomegaly, bowel sounds present. Patient has numerous scabs from picking on the skin and some bruises on the back of the thighs and calves. Patient has badly infested w [facility] bedbugs and she itches to the point of scratching the skin off. Results - Laboratory Findings CBC and BMP: 03/06/24 07:29 03/06/24 07:29 Abnormal Lab Findings: Abnormal Labs 03/04/24 03/04/24 03/04/24 19:21 19:21 21:46 Hct 48.3 H MCV 101.9 H MCHC 30.2 L RDW 16.9 H BUN 21 H Creatinine 1.21 H Glucose 152 H POC Glucose (mg/dL) Total Bilirubin 2.3 H AST 65 H ALT 60 H Alkaline Phosphatase 201 H TSH Urine Protein 1+ H Ur Leukocyte Esterase Small H Amorphous Sediment Few H Hyaline Casts 8 H Urine Mucus Rare H U Benzodiazepines Scrn 03/04/24 03/05/24 03/05/24 21:46 04:17 14:39 Hct MCV MCHC RDW BUN Creatinine Glucose POC Glucose (mg/dL) 151 H Total Bilirubin AST ALT Alkaline Phosphatase TSH 14.900 H Urine Protein Ur Leukocyte Esterase Amorphous Sediment Hyaline Casts Urine Mucus U Benzodiazepines Scrn Detected H Assessment and Plan Assessment: * Altered mental status, likely due to toxic metabolic encephalopathy * Atrial fibrillation with rapid ventricular rate * Acute kidney injury * Elevated liver enzymes * Congestive heart failure with EF 25% * COPD * Hypothyroidism, getting worse * Poor social condition with bedbugs Plan: * Carotid Doppler * EEG * B12, folate, MMA, B6, A1c * Patient's thyroid functions are abnormal. We will defer to IM. * Treatment of other medical conditions as per IM. * Neurology will follow. Thank you for the consult.
[2024-03-05] MEDS: QUEtiapine 50 MG TAB PO SCH (21:41)
[2024-03-05] MEDS: LOSARTAN 25 MG TAB PO SCH (21:41)
[2024-03-05] MEDS: ATORVASTATIN 40 MG TAB PO SCH (21:41)
--- NOTE | 2024-03-06 06:01 | US ---
EXAMINATION TYPE: US carotid duplex BILAT DATE OF EXAM: 03/05/2024 COMPARISON: NONE CLINICAL INDICATION: Female, 78 years old with history of AMS, speech difficulty; Altered mental stat us TECHNIQUE: Carotid duplex ultrasound examination. Indirect Doppler criteria was utilized. FINDINGS: [employer]OPER NOTES: Patient altered mental status and combative. Unable to obtain diagnostic images due to patient movement and uncooperation. IMPRESSION: Nondiagnostic study. Criteria for Assigning % of Stenosis / Diameter reduction (Estimation based on the indirect measurements of the internal carotid artery velocities (ICA PSV). 1. Normal (no stenosis)=ICA PSV < 125 cm/s: ratio < 2.0: ICA EDV<40 cm/s. 2. Less than 50% stenosis=ICA PSV < 125 cm/s: ratio < 2.0: ICA EDV<40 cm/s. 3. 50 to 69% stenosis=ICA PSV of 125 to 230 cm/s: ration 2.0 ? 4.0: ICA EDV 40-100 cm/s. 4. Greater than 70% stenosis to near occlusion= ICA PSV > 230 cm/s: ratio > 4.0: ICA EDV > 100 cm/s. 5. Near occlusion= ICA PSV velocities may be low or undetectable: variable ratio and ICA EDV. 6. Total occlusion=unable to detect flow.
[2024-03-06 08:15] LABS: Anisocytosis Slight; Basophils # (A) 0.1 k/uL (0-0.2); Basophils % (A) 1 %; Eosinophils # (A) 0.1 k/uL (0-0.7); Eosinophils % (A) 1 %; HCT 43.7 % (34.0-46.0); HGB 13.2 gm/dL (11.4-16.0); Hypochromasia Moderate; Lymphocytes # (A) 0.9 k/uL (1.0-4.8); Lymphocytes % (A) 12 %; MCH 31.1 pg (25.0-35.0); MCHC 30.1 g/dL (31.0-37.0); MCV 103.3 fL (80.0-100.0); Macrocytosis Moderate; Mean Platelet Volume 9.4; Monocytes # (A) 0.5 k/uL (0-1.0); Monocytes % (A) 6 %; Neutrophils # (A) 6.3 k/uL (1.3-7.7); Neutrophils % (A) 79 %; Platelet Count 212 k/uL (150-450); RBC 4.23 m/uL (3.80-5.40); RDW 17.2 % (11.5-15.5)
[2024-03-06 08:24] LABS: ALT 135 U/L (4-34); AST 197 U/L (14-36); African American GFR (CKD) 37 (>60 ml/min/1.73 sqM); Albumin 2.8 g/dL (3.5-5.0); Alkaline Phosphatase 170 U/L (38-126); Anion Gap 3 mmol/L; Blood Urea Nitrogen 25 mg/dL (7-17); Calcium 8.8 mg/dL (8.4-10.2); Carbon Dioxide 26 mmol/L (22-30); Chloride 109 mmol/L (98-107); Glucose 125 mg/dL (74-99); Non-African American GFR(CKD) 32 (>60 ml/min/1.73 sqM); Potassium 4.3 mmol/L (3.5-5.1); Sodium 138 mmol/L (137-145); Total Bilirubin 2.1 mg/dL (0.2-1.3); Total Protein 4.9 g/dL (6.3-8.2)
[2024-03-06] MEDS: FAMOTIDINE 20 MG TAB PO SCH (10:36)
--- NOTE | 2024-03-06 15:55 | P.PN ---
Subjective Progress Note Date: 03/06/24 Patient was seen for a follow-up. Patient's daughter and patient's son were present today. They believe that patient is slightly better. She is making out some words although mostly it is unintelligible. She did asked to go to the bathroom. Patient continues to be delirious, hallucinating at times very restless, encephalopathic. Patient denies headache. Objective - Vital Signs Vital signs: Vital Signs Temp 98 F 03/06/24 13:05 Pulse 86 03/06/24 13:05 Resp 20 03/06/24 13:05 BP 144/87 03/06/24 13:05 Pulse Ox 97 03/06/24 13:05 FiO2 Intake & Output 03/05/24 03/06/24 03/06/24 18:59 06:59 18:59 Weight 95 kg Other: Voiding Method Diaper Diaper # Voids 1 1 # Bowel Movements 1 - Exam Patient continues to be delirious, encephalopathic, restless. Family has noticed hallucinations. Patient able to name a few objects presented like "p en". She did not name eyeglasses. Patient tells me that she does live in [facility], but could not tell what building she is in, or current month or year. She mumbles at times, appears to get sometimes irritable when questions are asked. Her face is symmetric, pupils are equal, round and reacting, visual arthur could not be assessed. Patient moves all 4 extremities equally. - Labs CBC & Chem 7: 03/06/24 07:29 03/06/24 07:29 Labs: Abnormal Lab Results - Last 24 Hours (Table) 03/05/24 03/06/24 03/06/24 Range/Units 14:39 07:29 07:29 MCV 103.3 H (80.0-100.0) fL MCHC 30.1 L (31.0-37.0) g/dL RDW 17.2 H (11.5-15.5) % Lymphocytes # 0.9 L (1.0-4.8) k/uL Chloride (98-107) mmol/L BUN (7-17) mg/dL Creatinine (0.52-1.04) mg/dL Glucose (74-99) mg/dL Hemoglobin A1c 8.0 H (<=6.0) % Total Bilirubin (0.2-1.3) mg/dL AST (14-36) U/L ALT (4-34) U/L Alkaline Phosphatase (38-126) U/L Total Protein (6.3-8.2) g/dL Albumin (3.5-5.0) g/dL TSH 14.900 H (0.465-4.680) mIU/L 03/06/24 Range/Units 07:29 MCV (80.0-100.0) fL MCHC (31.0-37.0) g/dL RDW (11.5-15.5) % Lymphocytes # (1.0-4.8) k/uL Chloride 109 H (98-107) mmol/L BUN 25 H (7-17) mg/dL Creatinine 1.53 H (0.52-1.04) mg/dL Glucose 125 H (74-99) mg/dL Hemoglobin A1c (<=6.0) % Total Bilirubin 2.1 H (0.2-1.3) mg/dL AST 197 H (14-36) U/L ALT 135 H (4-34) U/L Alkaline Phosphatase 170 H (38-126) U/L Total Protein 4.9 L (6.3-8.2) g/dL Albumin 2.8 L (3.5-5.0) g/dL TSH (0.465-4.680) mIU/L Assessment and Plan Assessment: * Altered mental status, likely due to toxic metabolic encephalopathy * Atrial fibrillation with rapid ventricular rate * Abnormal CT head, with 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 * Elevated hemoglobin A1c 8.0, probable with new onset diabetes. * Acute kidney injury, slightly worse * Elevated liver enzymes, worsening * Congestive heart failure with EF 25% * COPD * Hypothyroidism, getting worse * Poor social condition with bedbugs infestation. Status post decontamination Plan: * Patient's mentation has not much improved. Patient is still very encephalo pathic, confused, slurring. * Repeat CT head, rule out any bleed or other structural abnormality. * Patient has worsening renal functions, worsening liver functions. However platelets are normal. No evidence of TTP at this time. Repeat CMP, CBC with differential in the morning. * Carotid Doppler could not be performed as patient was not cooperative. * EEG was performed, which was abnormal due to background slowing of moderate to severe degree. This is suggestive of generalized cerebral dysfunction as can be seen with toxic metabolic encephalopathy or related to diffuse structural brain abnormality. Clinical correlation is recommended. No epileptiform activity was seen. * B12, folate, MMA, B6, all pending. Ammonia is normal 16. * Hemoglobin A1c 8.0, consistent with new onset diabetes. Will defer to IM. * Patient has atrial fibrillation, currently on Eliquis 5 mg twice daily and Plavix. These will be continued. * Patient's thyroid functions are abnormal. We will defer to IM. * Treatment of other medical conditions as per IM. * Discussed with family members and primary physician in detail.
--- NOTE | 2024-03-06 16:22 | EEG ---
DATE OF SERVICE: 03/06/2024 ELECTROENCEPHALOGRAM REPORT PREAMBLE: This is a 78-year-old female with altered mental status. EEG FINDINGS: This is a 21-channel digital EEG recorded with video component, utilizing 10/20 international system with referential and bipolar montages. The recording starts and continues with presence of diffuse moderate voltage activity in mixed frequency of 4 to 6 hertz theta, intermixed with some 2 to 3 hertz delta slowing in bihemispheric region. Background does not seem to be reactive to eye opening and closing. Photic driving response was not seen. Some stage 2 sleep was seen periodically with presence of sleep spindles and vertex waves. No focal or generalized epileptiform activity was seen. Well-formed awake pattern not seen in the entire study. IMPRESSION: This is an abnormal EEG due to background slowing of moderate to severe degree. This is suggestive of generalized cerebral dysfunction as can be seen with toxic metabolic encephalopathy or related to diffuse structural brain abnormality. Clinical correlation is recommended. No epileptiform activity was seen. MMODL / IJN: [id number] / MTDD
[2024-03-06] MEDS ORDERED: DEXTROSE 50% SYRINGE 50 ML IVP PRN ×2 (16:24)
--- NOTE | 2024-03-06 16:30 | P.PN ---
Subjective Progress Note Date: 03/06/24 Patient is a 79-year-old female with a past medical history of hypertension, hyperlipidemia and atrial fibrillation who presents to the ED with worsening altered mental status for the past 2 weeks. Per family patient was recently being treated for UTI. In the ED CT head was unremarkable. Patient's labs were mainly remarkable for elevated LFTs. Abdominal ultrasound was unremarkable and only showed small renal cyst. Her UA was negative for UTI. Patient was admitted to the medicine service with neurology consultation. Patient had an EEG done that was consistent with metabolic encephalopathy. Patient's ammonia level was within normal limits. Patient's TSH was elevated but T4 was within normal limits. This is consistent with subclinical hypothyroidism. Her levothyroxine was increased to 75 mcg. Patient was started on Seroquel 50 mg twice daily. Unfortunately patient's mental status is worsening. Family were at bedside. Family is concerned that the patient's mental status is worsening. Patient this morning is also diaphoretic. Physical exam General examination - Alert and Oriented 0, patient is not delirious Heart - + S1S2 no murmurs Lungs -diminished breath sounds bilaterally Abdomen soft NT ND +ve BS Extremities - No edema CRYSTAL GROWER -patient is delirious, she is not following any commands. Patient is moving all 4 extremities Psych -patient delirious and not following any commands Assessment and plan Acute encephalopathy. Could be due to progressing vascular dementia One-to-one sitter Will increase Seroquel to 50 mg twice daily UDS only positive for benzodiazepine. Patient does take Xanax at home I have asked the family to check her Xanax bottle at home and see if she may have overdosed UA negative for UTI We will check blood cultures. Low suspicion for infection since patient is afebrile and no leukocytosis Check ammonia level Will continue with the home dose Xanax as needed Carotid ultrasound was nondiagnostic I discussed with neurology who is recommending to repeat CT head to rule out stroke. Unable to get MRI due to patient not able to tolerate from delirium Transaminitis and hyperbilirubinemia Suspect due to fatty liver Abdominal ultrasound was unremarkable AST is 197 and ALT is 135 and ALP is 170. Liver enzymes are worsening Will consult GI Acute kidney injury on chronic disease stage II Patient's creatinine is worse this morning at 1.53 I suspect it could be due to patient not drinking enough fluids and also on diuretics I will increase patient's normal saline to 100 cc an hour Will discontinue spironolactone and losartan Hypothyroidism TSH is low and T4 within normal limits. Increase levothyroxine to 75 mcg daily Hypertension Continue with losartan metoprolol and spironolactone Paroxysmal atrial fibrillation Continue metoprolol and Eliquis Patient is mildly tachycardic so we will consult cardiology. Full code DVT prophylaxis: Brandiequis Objective - Vital Signs Vital signs: Vital Signs Temp 98 F 03/06/24 13:05 Pulse 86 03/06/24 13:05 Resp 20 03/06/24 13:05 BP 144/87 03/06/24 13:05 Pulse Ox 97 03/06/24 13:05 FiO2 Intake & Output 03/05/24 03/06/24 03/06/24 18:59 06:59 18:59 Weight 95 kg Other: Voiding Method Diaper Diaper # Voids 1 1 # Bowel Movements 1 - Labs CBC & Chem 7: 03/06/24 07:29 03/06/24 07:29 Labs: Abnormal Lab Results - Last 24 Hours (Table) 03/06/24 03/06/24 03/06/24 Range/Units 07:29 07:29 07:29 MCV 103.3 H (80.0-100.0) fL MCHC 30.1 L (31.0-37.0) g/dL RDW 17.2 H (11.5-15.5) % Lymphocytes # 0.9 L (1.0-4.8) k/uL Chloride 109 H (98-107) mmol/L BUN 25 H (7-17) mg/dL Creatinine 1.53 H (0.52-1.04) mg/dL Glucose 125 H (74-99) mg/dL Hemoglobin A1c 8.0 H (<=6.0) % Total Bilirubin 2.1 H (0.2-1.3) mg/dL AST 197 H (14-36) U/L ALT 135 H (4-34) U/L Alkaline Phosphatase 170 H (38-126) U/L Total Protein 4.9 L (6.3-8.2) g/dL Albumin 2.8 L (3.5-5.0) g/dL
--- NOTE | 2024-03-06 16:38 | P.CONS ---
History of Present Illness - Reason for Consult Consult date: 03/06/24 Elevated LFTs Requesting physician: Joel Santiago - Chief Complaint Altered mental status changes - History of Present Illness This is a 78-year-old female with a past medical history of coronary artery disease, atrial fibrillation, hyperlipidemia, hypertension, sleep apnea and recent urinary tract infection as well as bedbug infestation. HPI is obtained by family and chart Due to patient's current mental status. Patient was brought in by her family states that she became confused 1 to 2 days ago with altered mental status changes and not acting like herself. She was noted to have elevated LFTs on admission she was noted to have elevated LFTs on admission and gastroenterology was consulted.family states she has no previous history of liver disease, no history of alcoholism. New medications include Keflex and Cipro as well as spironolactone. They state that she was started on amiodarone as well however that was discontinued about 1 month ago. States that she was recently diagnosed with urinary tract infection and had been started cephalexin however that was not sensitive to the culture and they stated that she was switched to ciprofloxacin. Patient has been obese most of her life. When reviewing her previous LFTs looks like patient has had some mild elevation of her AST and ALT as far back as 2013. She had elevated LFTs on admission with increase in her AST and ALT today. Today's labs WBC 8.0 hemoglobin 13.2 platelet count 212,000 INR 1.1 sodium 138 potassium 4.3 BUN 25 creatinine 1.5 total bilirubin 2.1 AST 197 ALT 135 alkaline phosphatase 170 ammonia 16 Review of Systems ROS unobtainable: due to mental status Past Medical History Past Medical History: Atrial Fibrillation, Hyperlipidemia, Hypertension Additional Past Medical History / Comment(s): Sleep Apnea (no machine not working), hx of septicemia, neck, back and shoulder pain, uses cane and rolling walker prn, gout . pt states recent SOB, weakness,. Bed Bugs (03/04/24) History of Any Multi-Drug Resistant Organisms: None Reported Past Surgical History: Adenoidectomy, Bariatric Surgery, Cholecystectomy, Hernia Repair, Joint Replacement, Tonsillectomy Additional Past Surgical History / Comment(s): GASTRIC SLEEVE (2010- DR MENDEZ), CARPAL TUNNEL MARILYN, CATARACTS, INGUINAL HERNIA, MARILYN TOTAL KNEES, Bilateral TOTAL HIPs, injections in back for spinal stenosis and cervical injections., pain c linic procedures. Past Anesthesia/Blood Transfusion Reactions: No Reported Reaction, Motion Sickness Past Psychological History: Anxiety, Depression Smoking Status: Never smoker Past Alcohol Use History: None Reported Past Drug Use History: None Reported - Past Family History Mother Additional Family Medical History / Comment(s): heart disease Father Family Medical History: Coronary Artery Disease (CAD), CVA/TIA Additional Family Medical History / Comment(s): heart disease Medications and Allergies Home Medications Medication Instructions Recorded Confirmed Type ALPRAZolam [Xanax] 0.25 mg PO BID PRN 08/02/20 03/04/24 History FLUoxetine HCL [PROzac] 60 mg PO DAILY 08/02/20 03/04/24 History Multivitamins, Thera [Multivitamin 1 tab PO DAILY 08/02/20 03/04/24 History (formulary)] Zafirlukast [Accolate] 20 mg PO BID 08/02/20 03/04/24 History allopurinoL [Zyloprim] 300 mg PO HS 08/02/20 03/04/24 History Levothyroxine Sodium [Synthroid] 50 mcg PO DAILY 02/09/22 03/04/24 History Apixaban [Eliquis] 5 mg PO BID #60 tab 10/16/23 03/04/24 Rx Furosemide [Lasix] 40 mg PO DAILY 11/01/23 03/04/24 History Atorvastatin [Lipitor] 40 mg PO HS #90 tablet 11/08/23 03/04/24 Rx Clopidogrel [Plavix] 75 mg PO DAILY #90 tab 11/08/23 03/04/24 Rx Nitroglycerin Sl Tabs [Nitrostat] 0.4 mg SUBLINGUAL Q5M PRN #100 tab 11/08/23 03/04/24 Rx Metoprolol Succinate [Toprol XL] 100 mg PO DAILY #90 tab 11/29/23 03/04/24 Rx Cholecalciferol [Vitamin D3 (25 50 mcg PO DAILY 03/04/24 03/04/24 History Mcg = 1000 Iu)] Losartan [Cozaar] 25 mg PO HS 03/04/24 03/04/24 History Spironolactone [Aldactone] 25 mg PO DAILY 03/04/24 03/04/24 History Allergies Allergy/AdvReac Type Severity Reaction Status Date / Time sulfamethoxazole AdvReac Unknown STOMACH Verified 03/04/24 19:57 [From Bactrim] PAIN trimethoprim [From Bactrim] AdvReac Unknown STOMACH Verified 03/04/24 19:57 PAIN HORSE SERUM TETANAS Allergy Severe Anaphylaxis Uncoded 02/20/24 06:57 Novacaine Allergy Anaphylaxis Uncoded 02/20/24 06:57 Physical Exam Vitals: Vital Signs Temp Pulse Resp BP Pulse Ox 03/06/24 13:05 98 F 86 20 144/87 97 03/06/24 07:46 98.4 F 109 H 19 141/98 98 03/06/24 00:06 97.9 F 111 H 15 117/72 95 03/05/24 22:56 131/85 03/05/24 20:00 98.9 F 106 H 18 155/100 03/05/24 18:12 96.7 F L 109 H 20 139/96 03/05/24 15:19 98.2 F 102 H 18 129/91 96 Intake and Output 03/05/24 03/06/24 03/06/24 22:59 06:59 14:59 Other: Voiding Method Diaper Diaper # Voids 2 1 1 # Bowel Movements 1 Weight 90.718 kg 95 kg General appearance: The patient is disoriented, confused. Obtunded. Appears in no acute distress. HET: Head is normocephalic and atraumatic. Conjunctiva pink. Sclera anicteric. Neck: Supple without lymphadenopathy. Trachea midline. Heart: Regular. Lungs: Equal expansion, normal respiratory effort. Abdomen: Soft, nontender, nondistended. Skin: Rash/bug bites on upper and lower extremities. Mildly jaundiced. Extremities: Normal skin color and turgor. No pedal edema. Neurological: Patient is disoriented and confused. Arousable. Results CBC & Chem 7: 03/06/24 07:29 03/06/24 07:29 Labs: Abnormal Lab Results - Last 24 Hours (Table) 03/05/24 03/06/24 03/06/24 Range/Units 14:39 07:29 07:29 MCV 103.3 H (80.0-100.0) fL MCHC 30.1 L (31.0-37.0) g/dL RDW 17.2 H (11.5-15.5) % Lymphocytes # 0.9 L (1.0-4.8) k/uL Chloride (98-107) mmol/L BUN (7-17) mg/dL Creatinine (0.52-1.04) mg/dL Glucose (74-99) mg/dL Hemoglobin A1c 8.0 H (<=6.0) % Total Bilirubin (0.2-1.3) mg/dL AST (14-36) U/L ALT (4-34) U/L Alkaline Phosphatase (38-126) U/L Total Protein (6.3-8.2) g/dL Albumin (3.5-5.0) g/dL TSH 14.900 H (0.465-4.680) mIU/L 03/06/24 Range/Units 07:29 MCV (80.0-100.0) fL MCHC (31.0-37.0) g/dL RDW (11.5-15.5) % Lymphocytes # (1.0-4.8) k/uL Chloride 109 H (98-107) mmol/L BUN 25 H (7-17) mg/dL Creatinine 1.53 H (0.52-1.04) mg/dL Glucose 125 H (74-99) mg/dL Hemoglobin A1c (<=6.0) % Total Bilirubin 2.1 H (0.2-1.3) mg/dL AST 197 H (14-36) U/L ALT 135 H (4-34) U/L Alkaline Phosphatase 170 H (38-126) U/L Total Protein 4.9 L (6.3-8.2) g/dL Albumin 2.8 L (3.5-5.0) g/dL TSH (0.465-4.680) mIU/L Comments: Liver ultrasound reports normal liver, gallbladder surgically absent, CBD within normal limits and there is a small right renal cyst. Brain CT: No acute intracranial process. Remote left periventricular white matter injuries. Nonspecific white matter changes. Likely secondary to chronic small vessel ischemic disease. Assessment and Plan (1) Elevated LFTs Narrative/Plan: 78-year-old female presenting with altered mental status changes likely secondary to metabolic encephalopathy who had presented with mildly elevated LFTs on admission yesterday with increase in her AST and ALT today. Unclear etiology of elevated LFTs however patient has had some mild elevation in the past dating as far back as 2013. Patient has no history of known liver disease, no history of alcoholism but has been overweight most of her life. There could be some underlying liver disease secondary to hepatic steatosis with acute medication induced secondary to recent antibiotics for urinary tract infection. Patient also had been on amiodarone recently but that has been discontinued about a month ago according to family. Will continue to monitor and trend LFTs, avoid hepatotoxic medications. Liver serologies will be ordered. Current Visit: Yes Status: Acute Code(s): R79.89 - OTHER SPECIFIED ABNORMAL FINDINGS OF BLOOD CHEMISTRY SNOMED Code(s): 893772539 (2) Chronic atrial fibrillation Current Visit: Yes Status: Acute Code(s): I48.20 - CHRONIC ATRIAL FIBRILLATION, UNSPECIFIED SNOMED Code(s): 793353900 (3) Altered mental status Current Visit: Yes Status: Acute Code(s): R41.82 - ALTERED MENTAL STATUS, UNSPECIFIED SNOMED Code(s): 868755052 (4) Recent urinary tract infection Current Visit: Yes Status: Acute Code(s): Z87.440 - PERSONAL HISTORY OF URINARY (TRACT) INFECTIONS SNOMED Code(s): 4570249829369 Plan: 1. Continue symptomatic and supportive care 2. Hepatitis panel ordered 3. Liver serologies ordered 4. Avoid hepatotoxic medications. Hold Lipitor for now. 5. Rest of medical management per primary medical team 6. Patient will likely need to follow-up with gastroenterology on an outpatient basis Thank you for this consultation, we will continue to follow. Dr. Adam Harmon I agree with the dictator's note, documented as a scribe by Nataliya Junior.
[2024-03-06] MEDS: INSULIN ASPART (NovoLOG) 100 UNIT/ML VIAL SQ SCH (18:13)
--- NOTE | 2024-03-06 18:47 | CT ---
EXAMINATION TYPE: CT brain wo con DATE OF EXAM: 03/06/2024 HISTORY: AMS CT DLP: 1166.3 mGycm. Automated Exposure Control for Dose Reduction was Utilized. TECHNIQUE: CT scan of the head is performed without contrast. COMPARISON: CT FINDINGS: There is no skull fracture or intracranial hemorrhage. No mass or mass effect. No definite new attenu ation defect. Extra-axial compartment is unremarkable. Paranasal sinuses and middle ear cavities and mastoid sinus air cells are clear. Orbits are unremarkable. IMPRESSION: No acute process.
[2024-03-06] MEDS: QUEtiapine 50 MG TAB PO SCH (20:34)
[2024-03-06 20:43] LABS: Glucose,Whole Blood 214 mg/dL (70-110)
[2024-03-07 04:10] LABS: Hepatitis A Antibody IgM Nonreactive (Nonreactive); Hepatitis B Core IgM Nonreactive (Nonreactive); Hepatitis B Surface Antigen Nonreactive (Nonreactive); Hepatitis C IgG Antibody Nonreactive (Nonreactive)
[2024-03-07] MEDS: LEVOTHYROXINE 75 MCG TAB PO SCH (05:04)
[2024-03-07 07:28] LABS: Glucose,Whole Blood 130 mg/dL (70-110)
[2024-03-07] MEDS: METOPROLOL TARTRATE 50 MG TAB PO SCH (08:27)
--- NOTE | 2024-03-07 08:44 | XR ---
EXAMINATION TYPE: XR chest 1V DATE OF EXAM: 03/07/2024 COMPARISON: 03/04/2024 INDICATION: Hypoxia TECHNIQUE: Single frontal view of the chest is obtained. FINDINGS: The heart size is prominent. The pulmonary vasculature is normal. Mild bibasilar infiltrates are present. IMPRESSION: 1. Mild bibasilar infiltrates. Correlate for pneumonia and atelectasis. Findings are worsened.
[2024-03-07] MEDS: METOPROLOL TARTRATE 50 MG TAB ONE (09:25)
[2024-03-07 09:27] LABS: Alpha Fetoprotein, Tumor Mkr <3.00 ng/mL (0.00-7.90)
--- NOTE | 2024-03-07 10:30 | P.CRDCN ---
History of Present Illness Consult date: 03/07/24 Reason for Consult (text): Atrial fibrillation with RVR History of present illness: History of present illness: This is a 78-year-old female patient of Dr. Garibay with past medical history of atrial tachycardia with RVR, persistent atrial fibrillation, dilated cardiomyopathy with a EF of 25%, coronary artery disease status post stenting, moderate mitral regurgitation. We have been asked to evaluate the patient for A-fib with RVR. Patient was brought into the hospital on 03/04 for altered mental status and has been seen and followed by neurology, GI for elevated liver function test. This morning, patient is minimally responsive to verbal stimuli. She briefly opens her eyes only. EKG A-fib with moderate ventricular rate, telemetry atrial fibrillation with moderately controlled ventricular rate Chest x-ray: Performed 03/07 reveals mild bibasilar infiltrates correlate for pneumonia and atelectasis. Carotid duplex nondiagnostic study WBC 8, hemoglobin 13.2. Sodium 138, potassium 4.3, BUN 25 and creatinine 1.53. A1c 8. Elevated liver function test. TSH 14.9 with free T4 normal at 1.76. Hepatitis panel negative. Urine drug screen positive for benzodiazepines. Home cardiac medications: Eliquis 5 mg twice daily, atorvastatin 40 mg at bedtime, Plavix 75 mg daily, Lasix 40 mg daily, losartan 25 mg at bedtime, Toprol-XL 100 mg daily, Nitrostat as needed, Aldactone 25 mg daily, patient also on levothyroxine 50 mcg daily. Echocardiogram performed on 03/01/2024 reveals EF of 45 to 50%, moderate to severe mitral regurgitation, moderate tricuspid regurgitation, moderately increased pulmonary artery systolic pressure of 49 mmHg. Physiologic pulmonic regurgitation. Electrocardioversion 11/29/2023 for persistent atrial fibrillation and associated cardiomyopathy Electrocardioversion 10/10/2023 for persistent atrial fibrillation Cardiac catheterization 11/07/[address] Ulrich revealed 80% diffuse calcified mid LAD disease, TIMI3 flow, mild CAD in the left circumflex and RCA. Normal left-sided filling pressures. LVEF 25% by echocardiogram. PCI 11/07/[address] Moreira with stenting of the proximal LAD Review Of Systems: Unable to obtain due to patient's mental status Physical examination: Gen: This is a obese 78-year-old female in no acute distress VS: reviewed, blood pressure 124/84-164/99, heart rate between 58 and 113, pulse ox 97% on 2 L nasal cannula. HEENT: Head is atraumatic, normocephalic. Pupils equal, round. Sclerae is anicteric. NECK: Supple. No JVD. LUNGS: Clear to auscultation. No wheezes or rhonchi. No intercostal retractions. HEART: Irregular rate and rhythm. No murmur. ABDOMEN: Soft No tenderness. EXTREMITIES: No pedal edema. No calf tenderness. NEUROLOGICAL: Patient is not arousable. Assessment: Persistent atrial fibrillation Acute kidney injury Metabolic encephalopathy with concern for dementia No active cardiac concerns at this time History of atrial tachycardia with RVR Dilated cardiomyopathy with EF of 25% in the past, now 45 to 50% Coronary artery disease status post stenting, single-vessel and proximal LAD Moderate mitral regurgitation and moderate tricuspid regurgitation Abnormal TSH Plan: Resume patient's home cardiac medications Change beta-marce to Lopressor 50 mg 3 times daily No need to repeat echocardiogram as this was done this week Further recommendations to follow based upon clinical course Thank you kindly for this consultation. Nurse practitioner note has been reviewed, I agree with documented findings and plan of care. Patient was seen and examined. Past Medical History Past Medical History: Atrial Fibrillation, Hyperlipidemia, Hypertension Additional Past Medical History / Comment(s): Sleep Apnea (no machine not working), hx of septicemia, neck, back and shoulder pain, uses cane and rolling walker prn, gout . pt states recent SOB, weakness,. Bed Bugs (03/04/24) History of Any Multi-Drug Resistant Organisms: None Reported Past Surgical History: Adenoidectomy, Bariatric Surgery, Cholecystectomy, Hernia Repair, Joint Replacement, Tonsillectomy Additional Past Surgical History / Comment(s): GASTRIC SLEEVE (2010- DR MENDEZ), CARPAL TUNNEL MARILYN, CATARACTS, INGUINAL HERNIA, MARILYN TOTAL KNEES, Bilateral TOTAL HIPs, injections in back for spinal stenosis and cervical injections., pain clinic procedures. Past Anesthesia/Blood Transfusion Reactions: No Reported Reaction, Motion Sickness Past Psychological History: Anxiety, Depression Smoking Status: Never smoker Past Alcohol Use History: None Reported Past Drug Use History: None Reported - Past Family History Mother Additional Family Medical History / Comment(s): heart disease Father Family Medical History: Coronary Artery Disease (CAD), CVA/TIA Additional Family Medical History / Comment(s): heart disease Medications and Allergies Home Medications Medication Instructions Recorded Confirmed Type ALPRAZolam [Xanax] 0.25 mg PO BID PRN 08/02/20 03/04/24 History FLUoxetine HCL [PROzac] 60 mg PO DAILY 08/02/20 03/04/24 History Multivitamins, Thera [Multivitamin 1 tab PO DAILY 08/02/20 03/04/24 History (formulary)] Zafirlukast [Accolate] 20 mg PO BID 08/02/20 03/04/24 History allopurinoL [Zyloprim] 300 mg PO HS 08/02/20 03/04/24 History Levothyroxine Sodium [Synthroid] 50 mcg PO DAILY 02/09/22 03/04/24 History Apixaban [Eliquis] 5 mg PO BID #60 tab 10/16/23 03/04/24 Rx Furosemide [Lasix] 40 mg PO DAILY 11/01/23 03/04/24 History Atorvastatin [Lipitor] 40 mg PO HS #90 tablet 11/08/23 03/04/24 Rx Clopidogrel [Plavix] 75 mg PO DAILY #90 tab 11/08/23 03/04/24 Rx Nitroglycerin Sl Tabs [Nitrostat] 0.4 mg SUBLINGUAL Q5M PRN #100 tab 11/08/23 03/04/24 Rx Metoprolol Succinate [Toprol XL] 100 mg PO DAILY #90 tab 11/29/23 03/04/24 Rx Cholecalciferol [Vitamin D3 (25 50 mcg PO DAILY 03/04/24 03/04/24 History Mcg = 1000 Iu)] Losartan [Cozaar] 25 mg PO HS 03/04/24 03/04/24 History Spironolactone [Aldactone] 25 mg PO DAILY 03/04/24 03/04/24 History Allergies Allergy/AdvReac Type Severity Reaction Status Date / Time sulfamethoxazole AdvReac Unknown STOMACH Verified 03/04/24 19:57 [From Bactrim] PAIN trimethoprim [From Bactrim] AdvReac Unknown STOMACH Verified 03/04/24 19:57 PAIN HORSE SERUM TETANAS Allergy Severe Anaphylaxis Uncoded 02/20/24 06:57 Novacaine Allergy Anaphylaxis Uncoded 02/20/24 06:57 Physical Exam Vitals: Vital Signs Temp Pulse Resp BP Pulse Ox 03/07/24 08:00 96.6 F L 113 H 19 164/99 97 03/07/24 02:00 98 F 110 H 16 124/84 91 L 03/06/24 20:00 16 03/06/24 19:00 97.5 F L 58 L 16 137/56 91 L 03/06/24 13:05 98 F 86 20 144/87 97 Intake and Output 03/06/24 03/07/24 03/07/24 22:59 06:59 14:59 Intake Total 1200 Balance 1200 Intake: Intake, IV Titration 1200 Amount Sodium Chloride 0.9% 1, 1200 000 ml @ 100 mls/hr IV . Q10H [facility] Rx#:[id number] Other: Voiding Method Diaper Diaper # Voids 2 # Bowel Movements 1 Results 03/06/24 07:29 03/06/24 07:29 Current Medications Generic Name Dose Route Start Last Admin Trade Name Freq PRN Reason Stop Dose Admin Acetaminophen 650 mg 03/05/24 02:33 03/07/24 05:04 Acetaminophen Tab 325 Mg Tab PO 650 mg Q6HR PRN Administration Mild Pain or Fever > 100.5 Al Hydroxide/Mg Hydroxide 15 ml 03/05/24 02:33 Mag Hydrox/Al Hydrox/Simeth 30 Ml Cup PO Q6HR PRN Indigestion Alprazolam 0.25 mg 03/05/24 02:33 03/07/24 01:43 Alprazolam 0.25 Mg Tab PO 0.25 mg Q6HR PRN Administration Anxiety Apixaban 5 mg 03/05/24 09:00 03/07/24 08:16 Apixaban 5 Mg Tab PO 5 mg BID CLIVE Administration Protocol Clopidogrel Bisulfate 75 mg 03/05/24 09:00 03/07/24 08:16 Clopidogrel 75 Mg Tab PO 75 mg DAILY CLIVE Administration Dextrose/Water 25 ml 03/06/24 16:24 Dextrose 50% Syringe 50 Ml IVP PER PROTOCOL PRN Hypoglycemia Protocol Dextrose/Water 50 ml 03/06/24 16:24 Dextrose 50% Syringe 50 Ml IVP PER PROTOCOL PRN Hypoglycemia Protocol Famotidine 20 mg 03/06/24 09:00 03/07/24 08:16 Famotidine 20 Mg Tab PO 20 mg DAILY CLIVE Administration Insulin Aspart 0 unit 03/06/24 17:30 03/07/24 07:33 Insulin Aspart (Novolog) 100 Unit/Ml Vial SQ Not Given ACHS [facility] Protocol Levothyroxine Sodium 75 mcg 03/07/24 06:30 03/07/24 05:04 Levothyroxine 75 Mcg Tab PO 75 mcg DAILY@0630 CLIVE Administration Melatonin 3 mg 03/05/24 02:33 03/05/24 03:44 Melatonin 3 Mg Tablet PO 3 mg HS PRN Administration Insomnia Metoprolol Tartrate 50 mg 03/07/24 09:00 03/07/24 08:27 Metoprolol Tartrate 50 Mg Tab PO 50 mg TID CLIVE Administration Naloxone HCl 0.2 mg 03/05/24 02:33 Naloxone 0.4 Mg/Ml 1 Ml Vial IV Q2M PRN Opioid Reversal Quetiapine Fumarate 50 mg 03/06/24 21:00 03/07/24 08:16 Quetiapine 50 Mg Tab PO 50 mg BID CLIVE Administration Intake and Output 03/06/24 03/07/24 03/07/24 22:59 06:59 14:59 Intake Total 1200 Balance 1200 Intake: Intake, IV Titration 1200 Amount Sodium Chloride 0.9% 1, 1200 000 ml @ 100 mls/hr IV . Q10H [facility] Rx#:[id number] Other: Voiding Method Diaper Diaper # Voids 2 # Bowel Movements 1 03/06/24 07:29 03/06/24 07:29
[2024-03-07 11:09] LABS: HCT 46.9 % (37.2-46.3); HGB 13.6 g/dL (12.0-15.0); MCH 32.2 pg (27.0-32.0); MCV 111.1 FL (80.0-97.0); NRBC Per 100 WBC 0 X 10*3/uL (0.00-0.01); Platelet Count 226 X 10*3/uL (140-440); RBC 4.22 X 10*6/uL (4.10-5.20); RDW 18.1 % (11.5-14.5); WBC 8.44 X 10*3/uL (4.50-10.00)
[2024-03-07 11:28] LABS: ALT 189 U/L (8-44); AST 199 U/L (13-35); Albumin 3.1 g/dL (3.8-4.9); Albumin/Globulin Ratio 1.94 Ratio (1.60-3.17); Alkaline Phosphatase 225 U/L (41-126); BUN/Creat Ratio 15.24 Ratio (12.00-20.00); Blood Urea Nitrogen 25.9 mg/dL (9.0-27.0); Calcium 8.8 mg/dL (8.7-10.3); Chloride 111 mmol/L (96-109); Globulin 1.6 g/dL (1.6-3.3); Glucose 141 mg/dL (70-110); Potassium 4.4 mmol/L (3.5-5.5); Sodium 143 mmol/L (135-145); Total Bilirubin 1.4 mg/dL (0.3-1.2); Total Protein 4.7 g/dL (6.2-8.2)
[2024-03-07 11:44] LABS: Basophils # (A) 0.14 X 10*3/uL (0.00-0.10); Basophils % (A) 1.7 %; Elliptocytes 2+; Eosinophils # (A) 0.16 X 10*3/uL (0.04-0.35); Eosinophils % (A) 1.9 %; Lymphocytes # (A) 0.89 X 10*3/uL (0.90-5.00); Lymphocytes % (A) 10.5 %; Macrocytosis (M) 2+; Monocytes # (A) 0.75 X 10*3/uL (0.20-1.00); Monocytes % (A) 8.9 %; Neutrophils # (A) 6.44 X 10*3/uL (1.80-7.70); Neutrophils % (A) 76.3 %
[2024-03-07 11:56] LABS: Glucose,Whole Blood 126 mg/dL (70-110)
--- NOTE | 2024-03-07 13:22 | P.PN ---
Subjective Progress Note Date: 03/07/24 (Patient was seen at 0640) Principal diagnosis: Elevated LFTs This is a 78-year-old female with a past medical history of coronary artery disease, atrial fibrillation, hyperlipidemia, hypertension, sleep apnea and recent urinary tract infection as well as bedbug infestation. HPI is obtained by family and chart Due to patient's current mental status. Patient was brought in by her family states that she became confused 1 to 2 days ago with altered mental status changes and not acting like herself. She was noted to have elevated LFTs on admission she was noted to have elevated LFTs on admission and gastroenterology was consulted.family states she has no previous history of liver disease, no history of alcoholism. New medications include Keflex and Cipro as well as spironolactone. They state that she was started on amiodarone as well however that was discontinued about 1 month ago. States that she was recently diagnosed with urinary tract infection and had been started cephalexin however that was not sensitive to the culture and they stated that she was switc hed to ciprofloxacin. Patient has been obese most of her life. When reviewing her previous LFTs looks like patient has had some mild elevation of her AST and ALT as far back as 2013. She had elevated LFTs on admission with increase in her AST and ALT today. Today's labs WBC 8.0 hemoglobin 13.2 platelet count 212,000 INR 1.1 sodium 138 potassium 4.3 BUN 25 creatinine 1.5 total bilirubin 2.1 AST 197 ALT 135 alkaline phosphatase 170 ammonia 16 03/07/2024 Patient was seen and examined today as a follow-up. She was resting with her eyes closed. She is still has altered mental status. Repeat LFTs today total bilirubin 1.4 AST 199 ALT 189 alkaline phosphatase 225 liver serologies normal to date. AFP tumor marker normal. Hepatitis panel nonreactive. Patient had a repeat CT of the brain which reported no acute process. Chest x-ray reports mild bibasilar infiltrates. Correlate for pneumonia and atelectasis. Findings are worsened. Objective - Vital Signs Vital signs: Vital Signs Temp 96.6 F L 03/07/24 08:00 Pulse 113 H 03/07/24 08:00 Resp 19 03/07/24 08:00 BP 164/99 03/07/24 08:00 Pulse Ox 97 03/07/24 08:00 FiO2 Intake & Output 03/06/24 03/07/24 03/07/24 18:59 06:59 18:59 Intake Total 1200 Balance 1200 Intake: Intake, IV Titration 1200 Amount Sodium Chloride 0.9% 1, 1200 000 ml @ 100 mls/hr IV . Q10H [facility] Rx#:[id number] Other: Voiding Method Diaper Diaper Diaper # Voids 1 2 # Bowel Movements 1 1 - Exam General appearance: The patient is Obtunded. Appears in no acute distress. HET: Head is normocephalic and atraumatic. Conjunctiva pink. Sclera anicteric. Neck: Supple without lymphadenopathy. Trachea midline. Abdomen: Soft, nontender, nondistended. Skin: Rash/bug bites on upper and lower extremities. Mildly jaundiced. Extremities: Normal skin color and turgor. No pedal edema. Neurological: Altered mental status, obtunded but arousable. - Labs CBC & Chem 7: 03/07/24 06:58 03/07/24 06:58 Labs: Abnormal Lab Results - Last 24 Hours (Table) 03/06/24 03/07/24 03/07/24 Range/Units 20:40 06:58 06:58 Hct 46.9 H (37.2-46.3) % MCV 111.1 H (80.0-97.0) FL MCH 32.2 H (27.0-32.0) pg MCHC 29.0 L (32.0-37.0) g/dL RDW 18.1 H (11.5-14.5) % Immature Gran # 0.06 H (0.00-0.04) X 10*3/uL Lymphocytes # 0.89 L (0.90-5.00) X 10*3/uL Basophils # 0.14 H (0.00-0.10) X 10*3/uL Macrocytosis (manual) 2+ A Elliptocytes 2+ A Chloride (96-109) mmol/L Carbon Dioxide (21.6-31.8) mmol/L Creatinine (0.6-1.5) mg/dL Est GFR (CKD-EPI) (>=60) Glucose (70-110) mg/dL POC Glucose (mg/dL) 214 H (70-110) mg/dL Hemoglobin A1c 7.9 H (<=6.0) % Total Bilirubin (0.3-1.2) mg/dL AST (13-35) U/L ALT (8-44) U/L Alkaline Phosphatase (41-126) U/L Total Protein (6.2-8.2) g/dL Albumin (3.8-4.9) g/dL 03/07/24 03/07/24 03/07/24 Range/Units 06:58 07:16 11:52 Hct (37.2-46.3) % MCV (80.0-97.0) FL MCH (27.0-32.0) pg MCHC (32.0-37.0) g/dL RDW (11.5-14.5) % Immature Gran # (0.00-0.04) X 10*3/uL Lymphocytes # (0.90-5.00) X 10*3/uL Basophils # (0.00-0.10) X 10*3/uL Macrocytosis (manual) Elliptocytes Chloride 111 H (96-109) mmol/L Carbon Dioxide 20.0 L (21.6-31.8) mmol/L Creatinine 1.7 H (0.6-1.5) mg/dL Est GFR (CKD-EPI) 30 L (>=60) Glucose 141 H (70-110) mg/dL POC Glucose (mg/dL) 130 H 126 H (70-110) mg/dL Hemoglobin A1c (<=6.0) % Total Bilirubin 1.4 H (0.3-1.2) mg/dL AST 199 H (13-35) U/L ALT 189 H (8-44) U/L Alkaline Phosphatase 225 H (41-126) U/L Total Protein 4.7 L (6.2-8.2) g/dL Albumin 3.1 L (3.8-4.9) g/dL Assessment and Plan (1) Elevated LFTs Narrative/Plan: 78-year-old female presenting with altered mental status changes likely secondary to metabolic encephalopathy who had presented with mildly elevated LFTs on admission yesterday with increase in her AST and ALT today. Unclear etiology of elevated LFTs however patient has had some mild elevation in the past dating as far back as 2013. Patient has no history of known liver disease, no history of alcoholism but has been overweight most of her life. There could be some underlying liver disease secondary to hepatic steatosis with acute medication induced secondary to recent antibiotics for urinary tract infection. Patient also had been on amiodarone recently but that has been discontinued about a month ago according to family. Will continue to monitor and trend LFTs, avoid hepatotoxic medications. Liver serologies will be ordered. Current Visit: Yes Status: Acute Code(s): R79.89 - OTHER SPECIFIED ABNORMAL FINDINGS OF BLOOD CHEMISTRY SNOMED Code(s): 976573154 (2) Chronic atrial fibrillation Current Visit: Yes Status: Acute Code(s): I48.20 - CHRONIC ATRIAL FIBRILLATION, UNSPECIFIED SNOMED Code(s): 683693221 (3) Altered mental status Current Visit: Yes Status: Acute Code(s): R41.82 - ALTERED MENTAL STATUS, UNSPECIFIED SNOMED Code(s): 096513019 (4) Recent urinary tract infection Current Visit: Yes Status: Acute Code(s): Z87.440 - PERSONAL HISTORY OF URINARY (TRACT) INFECTIONS SNOMED Code(s): 8260888202230 Plan: 1. Continue symptomatic and supportive care 2. Hepatitis panel ordered and reviewed 3. Liver serologies ordered and reviewed, negative to date. 4. Avoid hepatotoxic medications. Hold Lipitor for now. 5. Rest of medical management per primary medical team 6. No further workup from gastroenterology at this time. Patient will need to follow-up with gastroenterology on an outpatient basis Thank you for this consultation, we will sign off at this time. Dr. Adam Harmon I agree with the dictator's note, documented as a scribe by Nataliya Junior.
--- NOTE | 2024-03-07 14:54 | P.PN ---
Subjective Progress Note Date: 03/07/24 Hospital course Patient is a 79-year-old female with a past medical history of hypertension, hyperlipidemia and atrial fibrillation who presents to the ED with worsening altered mental status for the past 2 weeks. Per family patient was recently being treated for UTI. In the ED CT head was unremarkable. Patient's labs were mainly remarkable for elevated LFTs. Abdominal ultrasound was unremarkable and only showed small renal cyst. Her UA was negative for UTI. Patient was admitted to the medicine service with neurology consultation. Patient had an EEG done that was consistent with metabolic encephalopathy. Patient's ammonia level was within normal limits. Patient's TSH was elevated but T4 was within normal limits. This is consistent with subclinical hypothyroidism. Her levothyroxine was increased to 75 mcg. Patient was started on Seroquel. Patient's LFTs were also worsening. GI was consulted. Patient's hepatitis panel and liver serology testings have been negative. Patient's renal function also worsening. Patient was on fluids and her diuretics were held. Per cardiology note patient does have a history of systolic heart failure with an EF of 25% that recovered to 45%. I suspect that patient's renal function is worsening due to cardiorenal syndrome and I suspect that liver function is worsening due to hepatic congestion. I discontinued the fluids and will give patient 1 dose of IV Lasix. Chest x-ray this morning shows worsening bilateral consolidation. I believe this is due to volume overload. I will empirically start the patient on Unasyn for possible aspiration pneumonia. This morning patient's mental status was slightly better where she was following some simple commands. She is however somnolent. I have decreased her Seroquel dose. Patient seen this morning. She was following some simple commands. However she was somnolent and drowsy. She will quickly fall back asleep. Per nurse patient has urinated twice this morning. Physical exam General examination - Alert and Oriented 0, patient is not delirious Heart - + S1S2 no murmurs Lungs -diminished breath sounds bilaterally Abdomen soft NT ND +ve BS Extremities - No edema NURSING SECRETARY -patient following some simple commands this morning. Patient is moving all 4 extremities Psych -patient delirious and drowsy Assessment and plan Acute encephalopathy. Could be due to progressing vascular dementia One-to-one sitter Patient is somnolent this morning so I will decrease Seroquel to 25 mg at bedtime only Resume home dose as needed Xanax. I did tell the nurse to only given the patient is awake and alert UA negative for UTI Ammonia level is within normal limits Repeat CT head was negative for acute pathology EEG showed toxic encephalopathy Neurology on board This morning patient mental status was slightly better where she was following some simple commands Acute hypoxic respiratory failure Acute on chronic systolic heart failure This morning chest x-ray shows worsening bilateral consolidation which I suspect is due to pulmonary edema I doubt pneumonia because patient does not have leukocytosis or fever. Will continue to monitor for signs of infection and if she does have a fever will start Unasyn. Follow-up on blood cultures that were ordered empirically Patient is now on oxygen on 2 L Per cardiology note patient's echocardiogram in the past was 25% and then recovered to 45% I will give a one-time dose of IV Lasix 40 mg Continue with metoprolol Holding losartan due to JANNETH To consider restarting spironolactone tomorrow if okay with nephrology Transaminitis and hyperbilirubinemia I suspect is due to hepatic congestion Patient does have a history of systolic failure Initially patient was started on IV fluids Since the liver functions are worsening I believe patient may have hepatic congestion. Fluids have been discontinued Will give 1 dose of IV Lasix 40 mg GI on board Hepatitis panel negative. Hepatic serologies are all negative. Acute kidney injury on chronic disease stage II likely due to cardiorenal Fluids have been discontinued Hold losartan Will give 1 dose of IV Lasix 40 mg Will consult nephrology Check bladder scan Hypothyroidism TSH is low and T4 within normal limits. Increase levothyroxine to 75 mcg daily Hypertension Continue with metoprolol. Holding losartan due to acute kidney injury Paroxysmal atrial fibrillation Continue metoprolol and Eliquis Patient is mildly tachycardic so we will consult cardiology. Cardiology increased patient's metoprolol to 50 mg 3 times daily Heart rate this morning is controlled Full code DVT prophylaxis: Eliquis Objective - Vital Signs Vital signs: Vital Signs Temp 96.7 F L 03/07/24 13:17 Pulse 108 H 03/07/24 13:17 Resp 18 03/07/24 13:17 BP 149/100 03/07/24 13:17 Pulse Ox 97 03/07/24 13:17 FiO2 Intake & Output 03/06/24 03/07/24 03/07/24 18:59 06:59 18:59 Intake Total 1200 Balance 1200 Intake: Intake, IV Titration 1200 Amount Sodium Chloride 0.9% 1, 1200 000 ml @ 100 mls/hr IV . Q10H [facility] Rx#:[id number] Other: Voiding Method Diaper Diaper Diaper # Voids 1 2 2 # Bowel Movements 1 1 - Labs CBC & Chem 7: 03/07/24 06:58 03/07/24 06:58 Labs: Abnormal Lab Results - Last 24 Hours (Table) 03/06/24 03/07/24 03/07/24 Range/Units 20:40 06:58 06:58 Hct 46.9 H (37.2-46.3) % MCV 111.1 H (80.0-97.0) FL MCH 32.2 H (27.0-32.0) pg MCHC 29.0 L (32.0-37.0) g/dL RDW 18.1 H (11.5-14.5) % Immature Gran # 0.06 H (0.00-0.04) X 10*3/uL Lymphocytes # 0.89 L (0.90-5.00) X 10*3/uL Basophils # 0.14 H (0.00-0.10) X 10*3/uL Macrocytosis (manual) 2+ A Elliptocytes 2+ A Chloride (96-109) mmol/L Carbon Dioxide (21.6-31.8) mmol/L Creatinine (0.6-1.5) mg/dL Est GFR (CKD-EPI) (>=60) Glucose (70-110) mg/dL POC Glucose (mg/dL) 214 H (70-110) mg/dL Hemoglobin A1c 7.9 H (<=6.0) % Total Bilirubin (0.3-1.2) mg/dL AST (13-35) U/L ALT (8-44) U/L Alkaline Phosphatase (41-126) U/L Total Protein (6.2-8.2) g/dL Albumin (3.8-4.9) g/dL 03/07/24 03/07/24 03/07/24 Range/Units 06:58 07:16 11:52 Hct (37.2-46.3) % MCV (80.0-97.0) FL MCH (27.0-32.0) pg MCHC (32.0-37.0) g/dL RDW (11.5-14.5) % Immature Gran # (0.00-0.04) X 10*3/uL Lymphocytes # (0.90-5.00) X 10*3/uL Basophils # (0.00-0.10) X 10*3/uL Macrocytosis (manual) Elliptocytes Chloride 111 H (96-109) mmol/L Carbon Dioxide 20.0 L (21.6-31.8) mmol/L Creatinine 1.7 H (0.6-1.5) mg/dL Est GFR (CKD-EPI) 30 L (>=60) Glucose 141 H (70-110) mg/dL POC Glucose (mg/dL) 130 H 126 H (70-110) mg/dL Hemoglobin A1c (<=6.0) % Total Bilirubin 1.4 H (0.3-1.2) mg/dL AST 199 H (13-35) U/L ALT 189 H (8-44) U/L Alkaline Phosphatase 225 H (41-126) U/L Total Protein 4.7 L (6.2-8.2) g/dL Albumin 3.1 L (3.8-4.9) g/dL
[2024-03-07] MEDS: FUROSEMIDE 10 MG/ML 4 ML VIAL IV STA (15:43)
[2024-03-07 17:22] LABS: Glucose,Whole Blood 183 mg/dL (70-110)
[2024-03-07] MEDS: QUEtiapine 25 MG TAB PO SCH (20:22)
[2024-03-07] MEDS: NYSTATIN 100,000 UNIT/GM POWD 15 GM TOPICAL SCH (20:25)
[2024-03-07 20:27] LABS: Glucose,Whole Blood 144 mg/dL (70-110)
[2024-03-08 07:02] LABS: Glucose,Whole Blood 135 mg/dL (70-110)
[2024-03-08] MEDS: METOPROLOL TARTRATE 50 MG TAB PO ONE (09:03)
[2024-03-08 11:17] LABS: ALT 175 U/L (8-44); AST 128 U/L (13-35); Albumin 3.5 g/dL (3.8-4.9); Albumin/Globulin Ratio 1.84 Ratio (1.60-3.17); Alkaline Phosphatase 233 U/L (41-126); BUN/Creat Ratio 15.06 Ratio (12.00-20.00); Blood Urea Nitrogen 24.1 mg/dL (9.0-27.0); Calcium 9.4 mg/dL (8.7-10.3); Carbon Dioxide 21.5 mmol/L (21.6-31.8); Chloride 110 mmol/L (96-109); Globulin 1.9 g/dL (1.6-3.3); Glucose 161 mg/dL (70-110); Magnesium 1.9 mg/dL (1.5-2.4); Potassium 4.5 mmol/L (3.5-5.5); Sodium 144 mmol/L (135-145); Total Bilirubin 1.2 mg/dL (0.3-1.2); Total Protein 5.4 g/dL (6.2-8.2)
[2024-03-08 11:53] LABS: Glucose,Whole Blood 155 mg/dL (70-110)
--- NOTE | 2024-03-08 12:23 | P.PN ---
Subjective Progress Note Date: 03/08/24 This is Casey Gaston NP, I'm dictating on behalf of Dr. Garibay's H&P and A&P. Patient was interviewed and examined. Patient is a 78-year-old female who presented to the hospital with altered mental status, and was subsequently found to be in A-fib with RVR. Patient is responsive this morning, but unable to respond to questions appropriately. She grunts and makes noise but no appreciable words come out. Telemetry was reviewed and patient is found to still be in atrial fibrillation with rapid vent ricular response with heart rates between 105 and 115. Patient was recently started on metoprolol 50 mg 3 times daily. GENERAL: Well-appearing, well-nourished and in no acute distress. NECK: Supple without JVD or thyromegaly. LUNGS: Breath sounds demonstrate expiratory wheezing in the left lung field, clear in the right. Respiration equal and unlabored. No rales or rhonchi. HEART: Irregular rate and rhythm without murmurs, rubs or gallops. S1 and S2 heard. EXTREMITIES: Normal range of motion, no edema. No clubbing or cyanosis. Peripheral pulses intact and strong. VITALS: Temp 97.6, pulse 109, respirations 20, blood pressure 144/97, O2 saturation 95% on 2 L TELEMETRY: Atrial fibrillation with rapid ventricular response LABS: Sodium 144, potassium 4.5, BUN 24.1, creatinine 1.6, magnesium 1.9 IMPRESSION: 1. Atrial fibrillation with rapid ventricular response 2. Altered mental status 3. Elevated liver enzymes PLAN: Increase metoprolol to 100 mg twice daily. Will check a magnesium level. Further recommendations based on patient's clinical course. Objective - Vital Signs Vital signs: Vital Signs Temp 97.6 F 03/08/24 06:53 Pulse 109 H 03/08/24 06:53 Resp 20 03/08/24 06:53 BP 144/97 03/08/24 06:53 Pulse Ox 95 03/08/24 06:53 FiO2 Intake & Output 03/07/24 03/08/24 03/08/24 18:59 06:59 18:59 Intake Total 120 Balance 120 Intake: Oral 120 Other: Voiding Method Diaper Diaper # Voids 3 1 # Bowel Movements 1 - Labs CBC & Chem 7: 03/07/24 06:58 03/08/24 04:29 Labs: Abnormal Lab Results - Last 24 Hours (Table) 03/06/24 03/07/24 03/07/24 Range/Units 07:29 06:58 06:58 Hct 46.9 H (37.2-46.3) % MCV 111.1 H (80.0-97.0) FL MCH 32.2 H (27.0-32.0) pg MCHC 29.0 L (32.0-37.0) g/dL RDW 18.1 H (11.5-14.5) % Immature Gran # 0.06 H (0.00-0.04) X 10*3/uL Lymphocytes # 0.89 L (0.90-5.00) X 10*3/uL Basophils # 0.14 H (0.00-0.10) X 10*3/uL Macrocytosis (manual) 2+ A Elliptocytes 2+ A Chloride (96-109) mmol/L Carbon Dioxide (21.6-31.8) mmol/L Creatinine (0.6-1.5) mg/dL Est GFR (CKD-EPI) (>=60) Glucose (70-110) mg/dL POC Glucose (mg/dL) (70-110) mg/dL Hemoglobin A1c 7.9 H (<=6.0) % Total Bilirubin (0.3-1.2) mg/dL AST (13-35) U/L ALT (8-44) U/L Alkaline Phosphatase (41-126) U/L Total Protein (6.2-8.2) g/dL Albumin (3.8-4.9) g/dL Vitamin B12 1659.0 H (200.0-944.0) pg/mL 03/07/24 03/07/24 03/07/24 Range/Units 06:58 11:52 17:06 Hct (37.2-46.3) % MCV (80.0-97.0) FL MCH (27.0-32.0) pg MCHC (32.0-37.0) g/dL RDW (11.5-14.5) % Immature Gran # (0.00-0.04) X 10*3/uL Lymphocytes # (0.90-5.00) X 10*3/uL Basophils # (0.00-0.10) X 10*3/uL Macrocytosis (manual) Elliptocytes Chloride 111 H (96-109) mmol/L Carbon Dioxide 20.0 L (21.6-31.8) mmol/L Creatinine 1.7 H (0.6-1.5) mg/dL Est GFR (CKD-EPI) 30 L (>=60) Glucose 141 H (70-110) mg/dL POC Glucose (mg/dL) 126 H 183 H (70-110) mg/dL Hemoglobin A1c (<=6.0) % Total Bilirubin 1.4 H (0.3-1.2) mg/dL AST 199 H (13-35) U/L ALT 189 H (8-44) U/L Alkaline Phosphatase 225 H (41-126) U/L Total Protein 4.7 L (6.2-8.2) g/dL Albumin 3.1 L (3.8-4.9) g/dL Vitamin B12 (200.0-944.0) pg/mL 03/07/24 03/08/24 Range/Units 20:25 07:00 Hct (37.2-46.3) % MCV (80.0-97.0) FL MCH (27.0-32.0) pg MCHC (32.0-37.0) g/dL RDW (11.5-14.5) % Immature Gran # (0.00-0.04) X 10*3/uL Lymphocytes # (0.90-5.00) X 10*3/uL Basophils # (0.00-0.10) X 10*3/uL Macrocytosis (manual) Elliptocytes Chloride (96-109) mmol/L Carbon Dioxide (21.6-31.8) mmol/L Creatinine (0.6-1.5) mg/dL Est GFR (CKD-EPI) (>=60) Glucose (70-110) mg/dL POC Glucose (mg/dL) 144 H 135 H (70-110) mg/dL Hemoglobin A1c (<=6.0) % Total Bilirubin (0.3-1.2) mg/dL AST (13-35) U/L ALT (8-44) U/L Alkaline Phosphatase (41-126) U/L Total Protein (6.2-8.2) g/dL Albumin (3.8-4.9) g/dL Vitamin B12 (200.0-944.0) pg/mL Microbiology - Last 24 Hours (Table) 03/06/24 17:21 Blood Culture - Preliminary Blood 03/06/24 17:07 Blood Culture - Preliminary Blood
[2024-03-08 12:36] LABS: Basophils # (A) 0.08 X 10*3/uL (0.00-0.10); Basophils % (A) 0.8 %; Eosinophils # (A) 0.14 X 10*3/uL (0.04-0.35); Eosinophils % (A) 1.5 %; HCT 44.8 % (37.2-46.3); HGB 13.9 g/dL (12.0-15.0); Lymphocytes # (A) 0.99 X 10*3/uL (0.90-5.00); Lymphocytes % (A) 10.4 %; MCH 31.2 pg (27.0-32.0); MCV 100.7 FL (80.0-97.0); Mean Platelet Volume 11.5 FL (9.5-12.2); Monocytes # (A) 0.89 X 10*3/uL (0.20-1.00); Monocytes % (A) 9.3 %; NRBC Per 100 WBC 0 X 10*3/uL (0.00-0.01); Neutrophils # (A) 7.38 X 10*3/uL (1.80-7.70); Neutrophils % (A) 77.3 %; Platelet Count 297 X 10*3/uL (140-440); RBC 4.45 X 10*6/uL (4.10-5.20); RDW 17.9 % (11.5-14.5); WBC 9.55 X 10*3/uL (4.50-10.00)
--- NOTE | 2024-03-08 12:45 | P.PN ---
Subjective Progress Note Date: 03/07/24 Patient was seen for a follow-up. Patient's daughter and patient's son were present today. They believe that patient slept a lot. She is tiny bit talking better. She is understanding conversations a little more. She was able to eat food and responding to questions slightly more quicker. No new focal symptoms. Patient denies headache. Objective - Vital Signs Vital signs: Vital Signs Temp 96.7 F L 03/07/24 13:17 Pulse 108 H 03/07/24 13:17 Resp 18 03/07/24 13:17 BP 149/100 03/07/24 13:17 Pulse Ox 97 03/07/24 13:17 FiO2 Intake & Output 03/06/24 03/07/24 03/07/24 18:59 06:59 18:59 Intake Total 1200 Balance 1200 Intake: Intake, IV Titration 1200 Amount Sodium Chloride 0.9% 1, 1200 000 ml @ 100 mls/hr IV . Q10H [facility] Rx#:[id number] Other: Voiding Method Diaper Diaper Diaper # Voids 1 2 2 # Bowel Movements 1 1 - Exam Patient is sleeping at this time. Detailed examination deferred. Family gave detailed information as above. - Labs CBC & Chem 7: 03/08/24 04:29 03/08/24 04:29 Labs: Abnormal Lab Results - Last 24 Hours (Table) 03/06/24 03/06/24 03/07/24 Range/Units 07:29 20:40 06:58 Hct (37.2-46.3) % MCV (80.0-97.0) FL MCH (27.0-32.0) pg MCHC (32.0-37.0) g/dL RDW (11.5-14.5) % Immature Gran # (0.00-0.04) X 10*3/uL Lymphocytes # (0.90-5.00) X 10*3/uL Basophils # (0.00-0.10) X 10*3/uL Macrocytosis (manual) Elliptocytes Chloride (96-109) mmol/L Carbon Dioxide (21.6-31.8) mmol/L Creatinine (0.6-1.5) mg/dL Est GFR (CKD-EPI) (>=60) Glucose (70-110) mg/dL POC Glucose (mg/dL) 214 H (70-110) mg/dL Hemoglobin A1c 7.9 H (<=6.0) % Total Bilirubin (0.3-1.2) mg/dL AST (13-35) U/L ALT (8-44) U/L Alkaline Phosphatase (41-126) U/L Total Protein (6.2-8.2) g/dL Albumin (3.8-4.9) g/dL Vitamin B12 1659.0 H (200.0-944.0) pg/mL 03/07/24 03/07/24 03/07/24 Range/Units 06:58 06:58 07:16 Hct 46.9 H (37.2-46.3) % MCV 111.1 H (80.0-97.0) FL MCH 32.2 H (27.0-32.0) pg MCHC 29.0 L (32.0-37.0) g/dL RDW 18.1 H (11.5-14.5) % Immature Gran # 0.06 H (0.00-0.04) X 10*3/uL Lymphocytes # 0.89 L (0.90-5.00) X 10*3/uL Basophils # 0.14 H (0.00-0.10) X 10*3/uL Macrocytosis (manual) 2+ A Elliptocytes 2+ A Chloride 111 H (96-109) mmol/L Carbon Dioxide 20.0 L (21.6-31.8) mmol/L Creatinine 1.7 H (0.6-1.5) mg/dL Est GFR (CKD-EPI) 30 L (>=60) Glucose 141 H (70-110) mg/dL POC Glucose (mg/dL) 130 H (70-110) mg/dL Hemoglobin A1c (<=6.0) % Total Bilirubin 1.4 H (0.3-1.2) mg/dL AST 199 H (13-35) U/L ALT 189 H (8-44) U/L Alkaline Phosphatase 225 H (41-126) U/L Total Protein 4.7 L (6.2-8.2) g/dL Albumin 3.1 L (3.8-4.9) g/dL Vitamin B12 (200.0-944.0) pg/mL 03/07/24 Range/Units 11:52 Hct (37.2-46.3) % MCV (80.0-97.0) FL MCH (27.0-32.0) pg MCHC (32.0-37.0) g/dL RDW (11.5-14.5) % Immature Gran # (0.00-0.04) X 10*3/uL Lymphocytes # (0.90-5.00) X 10*3/uL Basophils # (0.00-0.10) X 10*3/uL Macrocytosis (manual) Elliptocytes Chloride (96-109) mmol/L Carbon Dioxide (21.6-31.8) mmol/L Creatinine (0.6-1.5) mg/dL Est GFR (CKD-EPI) (>=60) Glucose (70-110) mg/dL POC Glucose (mg/dL) 126 H (70-110) mg/dL Hemoglobin A1c (<=6.0) % Total Bilirubin (0.3-1.2) mg/dL AST (13-35) U/L ALT (8-44) U/L Alkaline Phosphatase (41-126) U/L Total Protein (6.2-8.2) g/dL Albumin (3.8-4.9) g/dL Vitamin B12 (200.0-944.0) pg/mL Assessment and Plan Assessment: * Altered mental status, likely due to toxic metabolic encephalopathy * Atrial fibrillation with rapid ventricular rate * Abnormal CT head, with 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 * Elevated hemoglobin A1c 8.0, probable with new onset diabetes. * Acute kidney injury, slightly worse * Elevated liver enzymes, worsening * Congestive heart failure with EF 25% * COPD * Hypothyroidism, getting worse * Poor social condition with bedbugs infestation. Status post decontamination Plan: * Patient's mentation has not much improved. Patient is still very encephalopathic, confused, slurring. * Repeat CT head, showed no acute process. * Check MRI of the brain because of persistent severe encephalopathy. * Patient has worsening renal functions, worsening liver functions, even as of today. However platelets are normal. No evidence of TTP at this time. * GI has seen the patient, ordered labs. Reviewed notes. * Carotid Doppler could not be performed as patient was not cooperative. * EEG was performed, which was abnormal due to background slowing of moderate to severe degree. This is suggestive of generalized cerebral dysfunction as can be seen with toxic metabolic encephalopathy or related to diffuse structural brain abnormality. Clinical correlation is recommended. No epileptiform activity was seen. * B12 1659, folate 30.9, MMA, B6, pending. Ammonia is normal 16. * Hemoglobin A1c 8.0, consistent with new onset diabetes. Patient does have history of borderline diabetes in the past. Will defer to IM. * Patient has atrial fibrillation, currently on Eliquis 5 mg twice daily and Plavix. These will be continued. * Patient's thyroid functions are abnormal. We will defer to IM. * Treatment of other medical conditions as per IM. * Discussed with multiple family members in detail.
[2024-03-08] MEDS: LORazepam 1 MG/0.5 ML VIAL IV STA (12:48)
--- NOTE | 2024-03-08 13:02 | P.PN ---
Subjective Progress Note Date: 03/08/24 (delayed charting seen at 0915) Patient is a 78-year-old female with known hypertension, dyslipidemia, and A-fib who presented to the emergency department with altered mentation for the previous 2 weeks. Patient was recently being treated for urinary tract infection with Cipro and then nitrofurantoin. On arrival labs were remarkable for creatinine of 1.21 which appears to be at patient's baseline. She had mildly elevated bilirubin at 2.3, AST 65, and ALT of 60. Urinalysis was negative. Urine drug screen was positive for benzodiazepines. She underwent chest x-ray which showed cardiomegaly and COPD. She underwent CT head which demonstrated no acute intracranial process with remote left periventricular white matter changes consistent with small vessel ischemic disease. She was admitted and subsequently underwent liver ultrasound which demonstrated small right renal cyst. She was followed by neurology and GI. She underwent repeat head CT which again showed no acute process. She underwent EEG which demonstrated moderate to severe background slowing consistent with toxic meta bolic encephalopathy. She had carotid Dopplers performed which were nondiagnostic as patient was combative. She developed fluid overload and cardiology was subsequently consulted. It came to light that patient had history of dilated cardiomyopathy and with current ejection fraction 45 to 50%. GI was consulted and the patient had hepatitis serologies performed which were negative, and negative antimitochondrial antibody, and a normal alpha 1 antitrypsin and AFP. B12 and folate were normal. TSH was elevated at 14.9 and hemoglobin A1c was elevated at 8 consistent with new onset diabetes. She developed worsening JANNETH which was felt to be due to cardiorenal syndrome. And nephrology was consulted. Patient seen and examined at bedside. No family present at bedside. Patient is alert to self. She then said beaks about being at the police station. She denies any pain, shortness of breath, nausea, vomiting. Vital signs reviewed General: Nontoxic, no distress, appears at stated age Cardiovascular: S1S2 reg, no murmur Lungs: Coarse breath sounds bilateral, no rhonchi, no rales, no accessory muscle use Abdominal: Soft, nontender to palpation, no guarding Ext: No gross muscle atrophy, 1+ edema bilateral lower extremities, no contractures Neuro: CN II-XI grossly intact, no focal neuro deficits Psych: Alert, oriented to self, appropriate affect Assessment/Plan: Acute encephalopathy with history of underlying dementia, undetermined etiology Hypothyroidism -Possible multifocal etiologies including recent ciprofloxacin use, benzodiazepine use, and undertreated hypothyroidism. -TSH is mildly elevated, levothyroxine increased to 75 mcg this hospital stay -Await further neurology recommendations -Patient scheduled for MRI brain today -Discontinue oral benzodiazepines. Will order 1 dose of IV Ativan as patient is scheduled to undergo MRI brain. -Head CT negative for acute pathology, EEG consistent with toxic metabolic encephalopathy -UA is negative, ammonia level mildly elevated -Check VDRL Acute hypoxic respiratory failure Acute on chronic systolic congestive heart failure with ejection fraction 45 to 50% Persistent atrial fibrillation Hypertension -Status post Lasix 40 mg IV x 1 -Await further cardiology recommendations -Lopressor 100 mg twice daily, Cozaar on hold -Eliquis 5 mg twice daily, Plavix 75 mg daily Transaminitis associated with hyperbilirubinemia, improving Pain could be related to ciprofloxacin use versus hepatic congestion secondary to acute exacerbation of CHF -Patient had been following by GI. They recommend continuing to hold Lipitor. Follow-up with GI as an outpatient basis no further workup needed at this time. -Repeat CMP in a.m. Acute kidney injury chronic kidney disease stage III -Possible cardiorenal syndrome. Patient received Lasix x 1 yesterday -Await nephrology evaluation. -Off of Aldactone and Cozaar Newly discovered diabetes -Continue with sliding scale insulin -Follow blood sugars. This morning blood sugar was 135. -Will need oral medications on discharge to help with diabetes management but given liver and kidney dysfunction will defer decision of this until later time. Imaging: None new Data Review: CMP reviewed from today with creatinine 1.6 down from 1.7, AST 128, ALT 175. DVT prophylaxis: eliquis Anticipated discharge date: pending clinical course Anticipated discharge place: pending clinical course This dictation was prepared using [employer] voice recognition software. Though every attempt is made to correct errors during dictation some may still exist. Objective - Vital Signs Vital signs: Vital Signs Temp 97.6 F 03/08/24 06:53 Pulse 109 H 03/08/24 08:50 Resp 20 03/08/24 08:50 BP 144/97 03/08/24 06:53 Pulse Ox 95 03/08/24 06:53 FiO2 Intake & Output 03/07/24 03/08/24 03/08/24 18:59 06:59 18:59 Intake Total 120 Balance 120 Intake: Oral 120 Other: Voiding Method Diaper Diaper Diaper Incontinent # Voids 3 1 # Bowel Movements 1 - Labs CBC & Chem 7: 03/08/24 04:29 03/08/24 04:29 Labs: Abnormal Lab Results - Last 24 Hours (Table) 03/06/24 03/07/24 03/07/24 Range/Units 07:29 17:06 20:25 MCV (80.0-97.0) FL MCHC (32.0-37.0) g/dL RDW (11.5-14.5) % Immature Gran # (0.00-0.04) X 10*3/uL Chloride (96-109) mmol/L Carbon Dioxide (21.6-31.8) mmol/L Anion Gap (4.00-12.00) mmol/L Creatinine (0.6-1.5) mg/dL Est GFR (CKD-EPI) (>=60) Glucose (70-110) mg/dL POC Glucose (mg/dL) 183 H 144 H (70-110) mg/dL AST (13-35) U/L ALT (8-44) U/L Alkaline Phosphatase (41-126) U/L Total Protein (6.2-8.2) g/dL Albumin (3.8-4.9) g/dL Vitamin B12 1659.0 H (200.0-944.0) pg/mL 03/08/24 03/08/24 03/08/24 Range/Units 04:29 04:29 07:00 MCV 100.7 H (80.0-97.0) FL MCHC 31.0 L (32.0-37.0) g/dL RDW 17.9 H (11.5-14.5) % Immature Gran # 0.07 H (0.00-0.04) X 10*3/uL Chloride 110 H (96-109) mmol/L Carbon Dioxide 21.5 L (21.6-31.8) mmol/L Anion Gap 12.50 H (4.00-12.00) mmol/L Creatinine 1.6 H (0.6-1.5) mg/dL Est GFR (CKD-EPI) 33 L (>=60) Glucose 161 H (70-110) mg/dL POC Glucose (mg/dL) 135 H (70-110) mg/dL AST 128 H (13-35) U/L ALT 175 H (8-44) U/L Alkaline Phosphatase 233 H (41-126) U/L Total Protein 5.4 L (6.2-8.2) g/dL Albumin 3.5 L (3.8-4.9) g/dL Vitamin B12 (200.0-944.0) pg/mL 03/08/24 Range/Units 11:51 MCV (80.0-97.0) FL MCHC (32.0-37.0) g/dL RDW (11.5-14.5) % Immature Gran # (0.00-0.04) X 10*3/uL Chloride (96-109) mmol/L Carbon Dioxide (21.6-31.8) mmol/L Anion Gap (4.00-12.00) mmol/L Creatinine (0.6-1.5) mg/dL Est GFR (CKD-EPI) (>=60) Glucose (70-110) mg/dL POC Glucose (mg/dL) 155 H (70-110) mg/dL AST (13-35) U/L ALT (8-44) U/L Alkaline Phosphatase (41-126) U/L Total Protein (6.2-8.2) g/dL Albumin (3.8-4.9) g/dL Vitamin B12 (200.0-944.0) pg/mL Microbiology - Last 24 Hours (Table) 03/06/24 17:21 Blood Culture - Preliminary Blood 03/06/24 17:07 Blood Culture - Preliminary Blood
--- NOTE | 2024-03-08 13:48 | P.NPCON ---
History of Present Illness - Reason for Consult acute renal failure - History of Present Illness patient is a 78-year-old female with history of hypertension, chronic A. fib was admitted to the hospital with mental status changes. Patient was being treated for UTI as outpatient but her general condition continued to deteriorate that her she was brought in by the family. No evidence of UTI after hospitalization. No previous history of kidney diseases. serum creatinine was 1.2 on initial admission and increased to 1.7 yesterday. To date is at 1.6. it appears that patient was maintained on IV hydration which was eventually discontinued due to concern for volume overload. patient has been incontinent. She had been on losartan which was discontinued. No hypotension documented. Review of Systems as per HPI Past Medical History Past Medical History: Atrial Fibrillation, Hyperlipidemia, Hypertension Additional Past Medical History / Comment(s): Sleep Apnea (no machine not working), hx of septicemia, neck, back and shoulder pain, uses cane and rolling walker prn, gout . pt states recent SOB, weakness,. Bed Bugs (03/04/24) History of Any Multi-Drug Resistant Organisms: None Reported Past Surgical History: Adenoidectomy, Bariatric Surgery, Cholecystectomy, Hernia Repair, Joint Replacement, Tonsillectomy Additional Past Surgical History / Comment(s): GASTRIC SLEEVE (2010- DR MENDEZ), CARPAL TUNNEL MARILYN, CATARACTS, INGUINAL HERNIA, MARILYN TOTAL KNEES, Bilateral TOTAL HIPs, injections in back for spinal stenosis and cervical injections., pain clinic procedures. Past Anesthesia/Blood Transfusion Reactions: No Reported Reaction, Motion Sickness Past Psychological History: Anxiety, Depression Smoking Status: Never smoker Past Alcohol Use History: None Reported Past Drug Use History: None Reported - Past Family History Mother Additional Family Medical History / Comment(s): heart disease Father Family Medical History: Coronary Artery Disease (CAD), CVA/TIA Additional Family Medical History / Comment(s): heart disease Medications and Allergies Home Medications Medication Instructions Recorded Confirmed Type ALPRAZolam [Xanax] 0.25 mg PO BID PRN 08/02/20 03/04/24 History FLUoxetine HCL [PROzac] 60 mg PO DAILY 08/02/20 03/04/24 History Multivitamins, Thera [Multivitamin 1 tab PO DAILY 08/02/20 03/04/24 History (formulary)] Zafirlukast [Accolate] 20 mg PO BID 10/26/20 05/28/24 History allopurinoL [Zyloprim] 300 mg PO HS 08/02/20 03/04/24 History Levothyroxine Sodium [Synthroid] 50 mcg PO DAILY 02/09/22 03/04/24 History Apixaban [Eliquis] 5 mg PO BID #60 tab 10/16/23 03/04/24 Rx Furosemide [Lasix] 40 mg PO DAILY 11/01/23 03/04/24 History Atorvastatin [Lipitor] 40 mg PO HS #90 tablet 11/08/23 03/04/24 Rx Clopidogrel [Plavix] 75 mg PO DAILY #90 tab 11/08/23 03/04/24 Rx Nitroglycerin Sl Tabs [Nitrostat] 0.4 mg SUBLINGUAL Q5M PRN #100 tab 11/08/23 03/04/24 Rx Metoprolol Succinate [Toprol XL] 100 mg PO DAILY #90 tab 11/29/23 03/04/24 Rx Cholecalciferol [Vitamin D3 (25 50 mcg PO DAILY 03/04/24 03/04/24 History Mcg = 1000 Iu)] Losartan [Cozaar] 25 mg PO HS 03/04/24 03/04/24 History Spironolactone [Aldactone] 25 mg PO DAILY 03/04/24 03/04/24 History Allergies Allergy/AdvReac Type Severity Reaction Status Date / Time sulfamethoxazole AdvReac Unknown STOMACH Verified 03/04/24 19:57 [From Bactrim] PAIN trimethoprim [From Bactrim] AdvReac Unknown STOMACH Verified 03/04/24 19:57 PAIN HORSE SERUM TETANAS Allergy Severe Anaphylaxis Uncoded 02/20/24 06:57 Novacaine Allergy Anaphylaxis Uncoded 02/20/24 06:57 Physical Exam Vitals: Vital Signs Temp Pulse Resp BP Pulse Ox 03/08/24 08:50 109 H 20 03/08/24 06:53 97.6 F 109 H 20 144/97 95 03/08/24 01:40 98.0 F 114 H 20 123/95 98 03/07/24 20:00 18 Intake and Output 03/07/24 03/08/24 03/08/24 22:59 06:59 14:59 Intake Total 120 Balance 120 Intake: Oral 120 Other: Voiding Method Diaper Diaper Incontinent # Voids 1 1 # Bowel Movements 1 patient is sleeping. She is arousable but does not communicate much. Examination of the heart S1 and S2 Examination of the lungs bilateral breath sounds are heard no crackles are heard Abdomen is soft nontender Examination of lower extremities shows no significant edema [employer]ACH[employer] exam shows patient is moving all 4 extremities but does not communicate Results - Lab Results Most recent lab results Calcium 9.4 mg/dL (8.7-10.3) 03/08/24 04:29 Magnesium 1.9 mg/dL (1.5-2.4) 03/08/24 04:29 03/08/24 04:29 03/08/24 04:29 Assessment and Plan Assessment: 1. Acute kidney injury most likely ATN, rule out urine retention. At this time patient does not appear to be in volume overload. She is currently not on diuretics or IV fluids. Chest x-ray from yesterday did not show any significant pulmonary vascular congestion. UA is unremarkable. Check ultrasound of the kidneys 2. Mental status changes, mostly metabolic encephalopathy. Patient is being followed by neurology. CT of the brain was unremarkable. 3. status post recent treatment for UTI as outpatient with Cipro 4. chronic A. fib Plan: check ultrasound of the kidneys Hold diuresis for now. Patient does not appear to be in volume overload currently. Repeat labs in a.m. Continue off of angiotensin receptor blockers thank you for the consultation. We will continue to follow the patient with you during her hospitalization.
--- NOTE | 2024-03-08 16:18 | US ---
EXAMINATION TYPE: US kidneys/renal and bladder DATE OF EXAM: 03/08/2024 COMPARISON: 03/05/2024 CLINICAL INDICATION: Female, 78 years old with history of janneth; JANNETH EXAM MEASUREMENTS: Right Kidney: 7.2x5.6x4.6 cm Left Kidney: 8.7x5.1x4.7 cm Right Kidney: small [id number] mid pole cystic structure again seen Left Kidney: No hydronephrosis or masses seen Bladder: wnl Bilateral Jets seen: rt jet visualized There is no evidence for hydronephrosis at this point in time. No nephrolithiasis is seen. The urin elzbieta bladder is anechoic. right ureteral jets are seen. exam limited by limited patient mobility, bowel gas, body habitus IMPRESSION: 1. Small cortical renal cyst right kidney.
[2024-03-08 16:58] LABS: Glucose,Whole Blood 185 mg/dL (70-110)
[2024-03-08 19:58] LABS: Glucose,Whole Blood 168 mg/dL (70-110)
--- NOTE | 2024-03-08 22:41 | P.CONS ---
History of Present Illness - Reason for Consult Consult date: 03/08/24 - History of Present Illness Patient is a 78-year-old female with a past medical history significant for hypertension hyperlipidemia sleep apnea atrial fibrillation patient has been brought into the hospital 5 days ago on 03/04/2024 for evaluation of increasing confusion and this patient apparently was recently t reated with antibiotics for UTI and apparently the patient did have a confusion while on antibiotics and did have worsening of the symptoms patient also noticed to have multiple bedbug bites especially to the upper and lower extremity mostly pronounced to the lower extremity and apparently patient has been scratching them to make them to be worse however the daughter mention she has been applying triple antibiotic cream on those and apparently has been getting worse patient has been eval of multiple consultants including cardiology and neurology and nephrology infectious disease was consulted today regarding her bedbug lesions rule out cellulitis pneumonia patient is currently sleepy lethargic and did not answer any question most information has been obtained from review the chart and talking with the family at the bedside as multiple of them are at the bedside, patient did not have any fever during this hospital stay patient is mildly tachycardic but not hypotensive and currently on a 2 L nasal cannula oxygen patient did have a normal white count on admission as well as this morning of 9.55 creatinine is mildly up at 1.6 liver enzymes are mildly elevated urine has been negative urine drug screen was positive for benzo hepatitis panel negative Treponema pallidum antibodies negative patient did have a chest x-ray mild bibasilar infiltrate correlate for pneumonia atelectasis Past Medical History Past Medical History: Atrial Fibrillation, Hyperlipidemia, Hypertension Additional Past Medical History / Comment(s): Sleep Apnea (no machine not working), hx of septicemia, neck, back and shoulder pain, uses cane and rolling walker prn, gout . pt states recent SOB, weakness,. Bed Bugs (03/04/24) History of Any Multi-Drug Resistant Organisms: None Reported Past Surgical History: Adenoidectomy, Bariatric Surgery, Cholecystectomy, Hernia Repair, Joint Replacement, Tonsillectomy Additional Past Surgical History / Comment(s): GASTRIC SLEEVE (2010- DR MENDEZ), CARPAL TUNNEL MARILYN, CATARACTS, INGUINAL HERNIA, MARILYN TOTAL KNEES, Bilateral TOTAL HIPs, injections in back for spinal stenosis and cervical injections., pain clinic procedures. Past Anesthesia/Blood Transfusion Reactions: No Reported Reaction, Motion Sickness Past Psychological History: Anxiety, Depression Smoking Status: Never smoker Past Alcohol Use History: None Reported Past Drug Use History: None Reported - Past Family History Mother Additional Family Medical History / Comment(s): heart disease Father Family Medical History: Coronary Artery Disease (CAD), CVA/TIA Additional Family Medical History / Comment(s): heart disease Medications and Allergies Home Medications Medication Instructions Recorded Confirmed Type ALPRAZolam [Xanax] 0.25 mg PO BID PRN 08/02/20 03/04/24 History FLUoxetine HCL [PROzac] 60 mg PO DAILY 08/02/20 03/04/24 History Multivitamins, Thera [Multivitamin 1 tab PO DAILY 08/02/20 03/04/24 History (formulary)] Zafirlukast [Accolate] 20 mg PO BID 08/02/20 03/04/24 History allopurinoL [Zyloprim] 300 mg PO HS 08/02/20 03/04/24 History Levothyroxine Sodium [Synthroid] 50 mcg PO DAILY 02/09/22 03/04/24 History Apixaban [Eliquis] 5 mg PO BID #60 tab 10/16/23 03/04/24 Rx Furosemide [Lasix] 40 mg PO DAILY 11/01/23 03/04/24 History Atorvastatin [Lipitor] 40 mg PO HS #90 tablet 11/08/23 03/04/24 Rx Clopidogrel [Plavix] 75 mg PO DAILY #90 tab 11/08/23 03/04/24 Rx Nitroglycerin Sl Tabs [Nitrostat] 0.4 mg SUBLINGUAL Q5M PRN #100 tab 11/08/23 03/04/24 Rx Metoprolol Succinate [Toprol XL] 100 mg PO DAILY #90 tab 11/29/23 03/04/24 Rx Cholecalciferol [Vitamin D3 (25 50 mcg PO DAILY 03/04/24 03/04/24 History Mcg = 1000 Iu)] Losartan [Cozaar] 25 mg PO HS 03/04/24 03/04/24 History Spironolactone [Aldactone] 25 mg PO DAILY 03/04/24 03/04/24 History Allergies Allergy/AdvReac Type Severity Reaction Status Date / Time sulfamethoxazole AdvReac Unknown STOMACH Verified 03/04/24 19:57 [From Bactrim] PAIN trimethoprim [From Bactrim] AdvReac Unknown STOMACH Verified 03/04/24 19:57 PAIN HORSE SERUM TETANAS Allergy Severe Anaphylaxis Uncoded 02/20/24 06:57 Novacaine Allergy Anaphylaxis Uncoded 02/20/24 06:57 Physical Exam Vitals: Vital Signs Temp Pulse Resp BP BP Pulse Ox 03/08/24 14:17 97.1 F L 117 H 28 H 158/95 98 03/08/24 08:50 109 H 20 03/08/24 06:53 97.6 F 109 H 20 144/97 95 03/08/24 01:40 98.0 F 114 H 20 123/95 98 03/07/24 20:00 18 Intake and Output 03/08/24 03/08/24 03/08/24 06:59 14:59 22:59 Other: Voiding Method Diaper Incontinent # Voids 1 Results CBC & Chem 7: 03/08/24 04:29 03/08/24 04:29 Labs: Abnormal Lab Results - Last 24 Hours (Table) 03/06/24 03/07/24 03/07/24 Range/Units 07:29 17:06 20:25 MCV (80.0-97.0) FL MCHC (32.0-37.0) g/dL RDW (11.5-14.5) % Immature Gran # (0.00-0.04) X 10*3/uL Chloride (96-109) mmol/L Carbon Dioxide (21.6-31.8) mmol/L Anion Gap (4.00-12.00) mmol/L Creatinine (0.6-1.5) mg/dL Est GFR (CKD-EPI) (>=60) Glucose (70-110) mg/dL POC Glucose (mg/dL) 183 H 144 H (70-110) mg/dL AST (13-35) U/L ALT (8-44) U/L Alkaline Phosphatase (41-126) U/L Total Protein (6.2-8.2) g/dL Albumin (3.8-4.9) g/dL Vitamin B12 1659.0 H (200.0-944.0) pg/mL 03/08/24 03/08/24 03/08/24 Range/Units 04:29 04:29 07:00 MCV 100.7 H (80.0-97.0) FL MCHC 31.0 L (32.0-37.0) g/dL RDW 17.9 H (11.5-14.5) % Immature Gran # 0.07 H (0.00-0.04) X 10*3/uL Chloride 110 H (96-109) mmol/L Carbon Dioxide 21.5 L (21.6-31.8) mmol/L Anion Gap 12.50 H (4.00-12.00) mmol/L Creatinine 1.6 H (0.6-1.5) mg/dL Est GFR (CKD-EPI) 33 L (>=60) Glucose 161 H (70-110) mg/dL POC Glucose (mg/dL) 135 H (70-110) mg/dL AST 128 H (13-35) U/L ALT 175 H (8-44) U/L Alkaline Phosphatase 233 H (41-126) U/L Total Protein 5.4 L (6.2-8.2) g/dL Albumin 3.5 L (3.8-4.9) g/dL Vitamin B12 (200.0-944.0) pg/mL 03/08/24 Range/Units 11:51 MCV (80.0-97.0) FL MCHC (32.0-37.0) g/dL RDW (11.5-14.5) % Immature Gran # (0.00-0.04) X 10*3/uL Chloride (96-109) mmol/L Carbon Dioxide (21.6-31.8) mmol/L Anion Gap (4.00-12.00) mmol/L Creatinine (0.6-1.5) mg/dL Est GFR (CKD-EPI) (>=60) Glucose (70-110) mg/dL POC Glucose (mg/dL) 155 H (70-110) mg/dL AST (13-35) U/L ALT (8-44) U/L Alkaline Phosphatase (41-126) U/L Total Protein (6.2-8.2) g/dL Albumin (3.8-4.9) g/dL Vitamin B12 (200.0-944.0) pg/mL Microbiology - Last 24 Hours (Table) 03/06/24 17:21 Blood Culture - Preliminary Blood 03/06/24 17:07 Blood Culture - Preliminary Blood Assessment and Plan Plan: 1patient presented to hospital mental status changes likely multifactorial patient did have multiple bug bites to the lower extremity however those are drying out with no evidence of any active cellulitis at the same time the patient did have a chest x-ray with bibasilar infiltrate more likely representing atelectasis clinically not behaving as pneumonia in this patient with no fever or elevated white count 2-we will check inflammatory markers including procalcitonin 3-with low clinical suspicion for cellulitis or pneumonia we will hold on adding antibiotic therapy at this point this has been explained to the patient and family who agree with not adding antibiotic at this point Multiple question concern answered We will follow on clinical condition and cultures to further adjust medication if needed Thank you for this consultation we will follow the patient along with you Dictation was produced using [employer] dictation software. please excuse any grammatical, word or spelling errors. Time with Patient: Greater than 30
[2024-03-09] MEDS: METOPROLOL TARTRATE 50 MG TAB PO SCH ×2 (00:02→22:01)
[2024-03-09] MEDS: LEVOTHYROXINE 75 MCG TAB PO SCH (06:08)
[2024-03-09] MEDS ORDERED: LEVOTHYROXINE 88 MCG TAB PO SCH (06:30)
[2024-03-09 06:59] LABS: Glucose,Whole Blood 145 mg/dL (70-110)
[2024-03-09 08:00] LABS: NT-Pro-B-Type Natriuretic Pept 26600 pg/mL
[2024-03-09 08:04] LABS: ALT 130 U/L (4-34); AST 83 U/L (14-36); African American GFR (CKD) 50 (>60 ml/min/1.73 sqM); Albumin/Globulin Ratio 1.3; Alkaline Phosphatase 222 U/L (38-126); Anion Gap 6 mmol/L; Blood Urea Nitrogen 24 mg/dL (7-17); Calcium 9.2 mg/dL (8.4-10.2); Carbon Dioxide 22 mmol/L (22-30); Chloride 114 mmol/L (98-107); Globulin 2.3 g/dL; Glucose 144 mg/dL (74-99); Non-African American GFR(CKD) 44 (>60 ml/min/1.73 sqM); Potassium 4.7 mmol/L (3.5-5.1); Sodium 142 mmol/L (137-145); Total Bilirubin 1.9 mg/dL (0.2-1.3); Total Protein 5.3 g/dL (6.3-8.2)
[2024-03-09 08:51] LABS: C Reactive Protein 1.3 mg/dL (<1.0)
--- NOTE | 2024-03-09 09:17 | P.PN ---
Subjective Progress Note Date: 03/09/24 This is Casey Gaston NP, I'm dictating on behalf of Dr. Garibay's H&P and A&P. Patient was interviewed and examined. Patient is a 78-year-old female who presented to hospital with status A-fib RVR. Patient remains relatively unresponsive today, unable to answer questions or respond to questions. She continues to moan incoherently. Unknown etiology for patient's altered mental status. GENERAL: Well-appearing, well-nourished and in no acute distress. NECK: Supple without JVD or thyromegaly. LUNGS: Breath sounds demonstrate expiratory wheezing to auscultation bilaterally. Respiration equal and unlabored. No rales or rhonchi. HEART: Irregular rate and rhythm without murmurs, rubs or gallops. S1 and S2 heard. EXTREMITIES: Normal range of motion, no edema. No clubbing or cyanosis. Peripheral pulses intact and strong. VITALS: Temp 97.3, pulse 116, respirations 24, blood pressure 145/110, O2 saturation 97% on 2 L TELEMETRY: Atrial fibrillation with rapid ventricular response LABS: Sodium 142, potassium 4.7, BUN 24, creatinine 1.2, calcium 9.2, CRP 1.3, BNP 26,600 IMPRESSION: 1. Atrial fibrillation with rapid ventricular response 2. Altered mental status 3. Elevated liver enzymes PLAN: Increase metoprolol to 150 mg twice daily. Internal medicine is working the patient up for possible infection. Further recommendations based on patient's clinical course. Objective - Vital Signs Vital signs: Vital Signs Temp 97.3 F L 03/09/24 06:59 Pulse 116 H 03/09/24 06:59 Resp 24 03/09/24 06:59 BP 145/110 03/09/24 06:59 Pulse Ox 97 03/09/24 06:59 FiO2 Intake & Output 03/08/24 03/09/24 03/09/24 18:59 06:59 18:59 Other: Voiding Method Diaper Diaper Incontinent Incontinent # Voids 3 1 - Labs CBC & Chem 7: 03/08/24 04:29 03/09/24 06:47 Labs: Abnormal Lab Results - Last 24 Hours (Table) 03/08/24 03/08/24 03/08/24 Range/Units 04:29 04:29 11:51 MCV 100.7 H (80.0-97.0) FL MCHC 31.0 L (32.0-37.0) g/dL RDW 17.9 H (11.5-14.5) % Immature Gran # 0.07 H (0.00-0.04) X 10*3/uL Chloride 110 H (96-109) mmol/L Carbon Dioxide 21.5 L (21.6-31.8) mmol/L Anion Gap 12.50 H (4.00-12.00) mmol/L BUN (7-17) mg/dL Creatinine 1.6 H (0.6-1.5) mg/dL Est GFR (CKD-EPI) 33 L (>=60) Glucose 161 H (70-110) mg/dL POC Glucose (mg/dL) 155 H (70-110) mg/dL Total Bilirubin (0.2-1.3) mg/dL AST 128 H (13-35) U/L ALT 175 H (8-44) U/L Alkaline Phosphatase 233 H (41-126) U/L C-Reactive Protein (<1.0) mg/dL Total Protein 5.4 L (6.2-8.2) g/dL Albumin 3.5 L (3.8-4.9) g/dL 03/08/24 03/08/24 03/09/24 Range/Units 16:56 19:55 06:47 MCV (80.0-97.0) FL MCHC (32.0-37.0) g/dL RDW (11.5-14.5) % Immature Gran # (0.00-0.04) X 10*3/uL Chloride 114 H (96-109) mmol/L Carbon Dioxide (21.6-31.8) mmol/L Anion Gap (4.00-12.00) mmol/L BUN 24 H (7-17) mg/dL Creatinine 1.20 H (0.6-1.5) mg/dL Est GFR (CKD-EPI) (>=60) Glucose 144 H (70-110) mg/dL POC Glucose (mg/dL) 185 H 168 H (70-110) mg/dL Total Bilirubin 1.9 H (0.2-1.3) mg/dL AST 83 H (13-35) U/L ALT 130 H (8-44) U/L Alkaline Phosphatase 222 H (41-126) U/L C-Reactive Protein 1.3 H (<1.0) mg/dL Total Protein 5.3 L (6.2-8.2) g/dL Albumin 3.0 L (3.8-4.9) g/dL 03/09/24 Range/Units 06:57 MCV (80.0-97.0) FL MCHC (32.0-37.0) g/dL RDW (11.5-14.5) % Immature Gran # (0.00-0.04) X 10*3/uL Chloride (96-109) mmol/L Carbon Dioxide (21.6-31.8) mmol/L Anion Gap (4.00-12.00) mmol/L BUN (7-17) mg/dL Creatinine (0.6-1.5) mg/dL Est GFR (CKD-EPI) (>=60) Glucose (70-110) mg/dL POC Glucose (mg/dL) 145 H (70-110) mg/dL Total Bilirubin (0.2-1.3) mg/dL AST (13-35) U/L ALT (8-44) U/L Alkaline Phosphatase (41-126) U/L C-Reactive Protein (<1.0) mg/dL Total Protein (6.2-8.2) g/dL Albumin (3.8-4.9) g/dL Microbiology - Last 24 Hours (Table) 03/06/24 17:21 Blood Culture - Preliminary Blood 03/06/24 17:07 Blood Culture - Preliminary Blood
[2024-03-09 10:25] LABS: Appearance,Urine Cloudy (Clear); Bacteria,Urine Many /hpf; Bilirubin,Urine Negative (Negative); Blood,Urine Trace (Negative); Color,Urine Yellow; Glucose,Urine (UA) Negative (Negative); Ketones,Urine Negative (Negative); Leukocyte Esterase,Urine Large (Negative); Mucus,Urine Many /hpf; Nitrite,Urine Negative (Negative); PH, Urine 5.5 (5.0-8.0); Protein,Urine 2+ (Negative); RBC,Urine 8 /hpf (0-5); Specific Gravity,Urine 1.017 (1.001-1.035); Urobilinogen,Urine <2.0 mg/dL (<2.0); WBC,Urine >182 /hpf (0-5)
--- NOTE | 2024-03-09 11:08 | XR ---
EXAMINATION TYPE: XR chest 2V DATE OF EXAM: 03/09/2024 COMPARISON: 03/04/2024 HISTORY: Pneumonia TECHNIQUE: Frontal and lateral views of the chest are obtained. FINDINGS: There is persistent [id number] cardiomegaly. There has been interval development of small bilat eral pleural effusions. The pulmonary vasculature appears mildly congested. IMPRESSION: Findings most consistent with moderate CHF. Left lower lobe pneumonia less likely but no t excluded. Short-term follow-up is suggested
--- NOTE | 2024-03-09 11:42 | P.PN ---
Subjective Progress Note Date: 03/08/24 Patient was seen for a follow-up. Patient's , patient's daughter and patient's son were present today. Patient did have bowel movement. She gets agitated when she has to go to the bathroom. She continues to speak with monitoring. However she does express herself when she has to pass urine. She did recognize her daughter, her nephew who came to visit her. She said "is anyone coming to help" when she wanted to pass urine. Patient denies headache. Objective - Vital Signs Vital signs: Vital Signs Temp 97.1 F L 03/08/24 14:17 Pulse 117 H 03/08/24 14:17 Resp 28 H 03/08/24 14:17 BP 158/95 03/08/24 14:17 Pulse Ox 98 03/08/24 14:17 FiO2 Intake & Output 03/07/24 03/08/24 03/08/24 18:59 06:59 18:59 Intake Total 120 Balance 120 Intake: Oral 120 Other: Voiding Method Diaper Diaper Diaper Incontinent # Voids 3 1 # Bowel Movements 1 - Exam Patient continues to be encephalopathic, keeps her eyes closed. She speaks as mentioned above. Patient moves all 4 extremities equally. Patient has multiple scratches on her body from bedbugs bite. Uncertain if there is some cellulitis. Examination limited because patient has received Ativan for MRI. - Labs CBC & Chem 7: 03/08/24 04:29 03/09/24 06:47 Labs: Abnormal Lab Results - Last 24 Hours (Table) 03/06/24 03/07/24 03/07/24 Range/Units 07:29 17:06 20:25 MCV (80.0-97.0) FL MCHC (32.0-37.0) g/dL RDW (11.5-14.5) % Immature Gran # (0.00-0.04) X 10*3/uL Chloride (96-109) mmol/L Carbon Dioxide (21.6-31.8) mmol/L Anion Gap (4.00-12.00) mmol/L Creatinine (0.6-1.5) mg/dL Est GFR (CKD-EPI) (>=60) Glucose (70-110) mg/dL POC Glucose (mg/dL) 183 H 144 H (70-110) mg/dL AST (13-35) U/L ALT (8-44) U/L Alkaline Phosphatase (41-126) U/L Total Protein (6.2-8.2) g/dL Albumin (3.8-4.9) g/dL Vitamin B12 1659.0 H (200.0-944.0) pg/mL 03/08/24 03/08/24 03/08/24 Range/Units 04:29 04:29 07:00 MCV 100.7 H (80.0-97.0) FL MCHC 31.0 L (32.0-37.0) g/dL RDW 17.9 H (11.5-14.5) % Immature Gran # 0.07 H (0.00-0.04) X 10*3/uL Chloride 110 H (96-109) mmol/L Carbon Dioxide 21.5 L (21.6-31.8) mmol/L Anion Gap 12.50 H (4.00-12.00) mmol/L Creatinine 1.6 H (0.6-1.5) mg/dL Est GFR (CKD-EPI) 33 L (>=60) Glucose 161 H (70-110) mg/dL POC Glucose (mg/dL) 135 H (70-110) mg/dL AST 128 H (13-35) U/L ALT 175 H (8-44) U/L Alkaline Phosphatase 233 H (41-126) U/L Total Protein 5.4 L (6.2-8.2) g/dL Albumin 3.5 L (3.8-4.9) g/dL Vitamin B12 (200.0-944.0) pg/mL 03/08/24 Range/Units 11:51 MCV (80.0-97.0) FL MCHC (32.0-37.0) g/dL RDW (11.5-14.5) % Immature Gran # (0.00-0.04) X 10*3/uL Chloride (96-109) mmol/L Carbon Dioxide (21.6-31.8) mmol/L Anion Gap (4.00-12.00) mmol/L Creatinine (0.6-1.5) mg/dL Est GFR (CKD-EPI) (>=60) Glucose (70-110) mg/dL POC Glucose (mg/dL) 155 H (70-110) mg/dL AST (13-35) U/L ALT (8-44) U/L Alkaline Phosphatase (41-126) U/L Total Protein (6.2-8.2) g/dL Albumin (3.8-4.9) g/dL Vitamin B12 (200.0-944.0) pg/mL Microbiology - Last 24 Hours (Table) 03/06/24 17:21 Blood Culture - Preliminary Blood 03/06/24 17:07 Blood Culture - Preliminary Blood Assessment and Plan Assessment: * Altered mental status, likely due to toxic metabolic encephalopathy * Atrial fibrillation with rapid ventricular rate * Abnormal CT head, with 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 * Elevated hemoglobin A1c 8.0, probable with new onset diabetes. * Acute kidney injury, today slightly better * Elevated liver enzymes, today slightly better * Congestive heart failure with EF 25% * COPD * Hypothyroidism, getting worse * Poor social condition with bedbugs infestation. Status post decontamination Plan: * Patient's mentation has not much improved. Patient is still very encephalopathic, confused, slurring. * Repeat CT head, showed no acute process. * MRI was attempted, but patient did not cooperate and was very restless. It was aborted. * Patient has worsening renal functions, worsening liver functions, slightly better as of today. * GI has seen the patient, ordered labs. Reviewed notes. * Patient has multiple scratches on the body. Uncertain if there is some cellulitis. Consult infectious disease. * Carotid Doppler could not be performed as patient was not cooperative. * EEG was performed, which was abnormal due to background slowing of moderate to severe degree. This is suggestive of generalized cerebral dysfunction as can be seen with toxic metabolic encephalopathy or related to diffuse structural brain abnormality. Clinical correlation is recommended. No epileptiform activity was seen. * B12 1659, folate 30.9, MMA, B6, pending. Ammonia is normal 16. * Hemoglobin A1c 8.0, consistent with new onset diabetes. Patient does have history of borderline diabetes in the past. Will defer to IM. * Patient has atrial fibrillation, currently on Eliquis 5 mg twice daily and Plavix. These will be continued. * Patient's thyroid functions are abnormal. We will defer to IM. * Treatment of other medical conditions as per IM. * Discussed with multiple family members in detail.
[2024-03-09 11:49] LABS: Glucose,Whole Blood 186 mg/dL (70-110)
--- NOTE | 2024-03-09 14:49 | P.PN ---
Subjective Progress Note Date: 03/09/24 (delayed charting seen at 0810) Patient is a 78-year-old female with known hypertension, dyslipidemia, and A-fib who presented to the emergency department with altered mentation for the previous 2 weeks. Patient was recently being treated for urinary tract infection with Cipro and then nitrofurantoin. On arrival labs were remarkable for creatinine of 1.21 which appears to be at patient's baseline. She had mildly elevated bilirubin at 2.3, AST 65, and ALT of 60. Urinalysis was negative. Urine drug screen was positive for benzodiazepines. She underwent chest x-ray which showed cardiomegaly and COPD. She underwent CT head which demonstrated no acute intracranial process with remote left periventricular white matter changes consistent with small vessel ischemic disease. She was admitted and subsequently underwent liver ultrasound which demonstrated small right renal cyst. She was followed by neurology and GI. She underwent repeat head CT which again showed no acute process. She underwent EEG which demonstrated moderate to severe background slowing consistent with toxic meta bolic encephalopathy. She had carotid Dopplers performed which were nondiagnostic as patient was combative. She developed fluid overload and cardiology was subsequently consulted. It came to light that patient had history of dilated cardiomyopathy and with current ejection fraction 45 to 50%. GI was consulted and the patient had hepatitis serologies performed which were negative, and negative antimitochondrial antibody, and a normal alpha 1 antitrypsin and AFP. B12 and folate were normal. TSH was elevated at 14.9 and hemoglobin A1c was elevated at 8 consistent with new onset diabetes. She developed worsening JANNETH which was felt to be due to cardiorenal syndrome. And nephrology was consulted. Patient seen and examined at bedside. No family present at bedside. Does not answer questions today. She is staring into space. She is grunting. She is tracting Per nursing as been eating. Slept form 9 pm to 4 am Vital signs reviewed General: Nontoxic, no distress, appears at stated age Cardiovascular: S1S2 reg, no murmur Lungs: Coarse breath sounds bilateral, no rhonchi, no rales, no accessory muscle use Abdominal: Soft, nontender to palpation, no guarding Ext: No gross muscle atrophy, 1+ edema bilateral lower extremities, no contractures Neuro: CN II-XI grossly intact, no focal neuro deficits Psych: Alert, oriented to self, appropriate affect Assessment/Plan: Acute encephalopathy with history of underlying dementia, undetermined etiology Hypothyroidism -Possible multifocal etiologies including recent ciprofloxacin use, benzodiazepine use, under treated hypothyroidism, CVA -TSH is mildly elevated, levothyroxine increased to 75 mcg this hospital stay -Neurology note reviewed from 03/08/2024. -Infectious disease consult reviewed: Low clinical suspicion for pneumonia or cellulitis -Patient unable to follow instructions for MRI brain -Stay off oral benzos. Patient MAPs reviewed and last fill was in Sep 2023. - Decrease seroquel to 12.5 mg daily. -Head CT negative for acute pathology, EEG consistent with toxic metabolic encephalopathy -UA is negative, ammonia negative -Check Urinalysis for RBC, ESR, and YANET to evaluate for possible vasculitis -syphillus antibody negative Acute hypoxic respiratory failure Acute on chronic systolic congestive heart failure with ejection fraction 45 to 50% Persistent atrial fibrillation Hypertension -Cardiology note reviewed: Increase metoprolol to 150 mg twice daily -Lopressor 100 mg twice daily, Cozaar on hold -Eliquis 5 mg twice daily, Plavix 75 mg daily Transaminitis associated with hyperbilirubinemia, worsening today Pain could be related to ciprofloxacin use versus hepatic congestion secondary to acute exacerbation of CHF -Patient had been following by GI. They recommend continuing to hold Lipitor. Follow-up with GI as an outpatient basis no further workup needed at this time. -Repeat CMP in a.m. Acute kidney injury chronic kidney disease stage III - improving - nephrolopgy recs reviewed: off lasix and cozaar, follow CR -Off of Aldactone and Cozaar Newly discovered diabetes -Continue with sliding scale insulin -Follow blood sugars. This morning blood sugar was 135. -Will need oral medications on discharge to help with diabetes management but given liver and kidney dysfunction will defer decision of this until later time. Bedbug infestation on arrival -Status post decontamination Imaging: Renal US with right renal cyst Data Review: Labs reviewed from today include complete metabolic profile which are remarkable for creatinine 1.2, bilirubin 1.9, AST 83, ALT 130, CRP mildly elevated at 1.3, BNP elevated at 26,600. DVT prophylaxis: eliquis Anticipated discharge date: pending clinical course Anticipated discharge place: pending clinical course This dictation was prepared using [employer] voice recognition software. Though every attempt is made to correct errors during dictation some may still exist. Objective - Vital Signs Vital signs: Vital Signs Temp 97.7 F 03/09/24 14:01 Pulse 121 H 03/09/24 14:01 Resp 24 03/09/24 14:01 BP 138/89 03/09/24 14:01 Pulse Ox 97 03/09/24 14:01 FiO2 Intake & Output 03/08/24 03/09/24 03/09/24 18:59 06:59 18:59 Other: Voiding Method Diaper Diaper Diaper Incontinent Incontinent Incontinent # Voids 3 1 - Labs CBC & Chem 7: 03/08/24 04:29 03/09/24 06:47 Labs: Abnormal Lab Results - Last 24 Hours (Table) 03/08/24 03/08/24 03/09/24 Range/Units 16:56 19:55 06:47 Chloride 114 H (98-107) mmol/L BUN 24 H (7-17) mg/dL Creatinine 1.20 H (0.52-1.04) mg/dL Glucose 144 H (74-99) mg/dL POC Glucose (mg/dL) 185 H 168 H (70-110) mg/dL Total Bilirubin 1.9 H (0.2-1.3) mg/dL AST 83 H (14-36) U/L ALT 130 H (4-34) U/L Alkaline Phosphatase 222 H (38-126) U/L C-Reactive Protein 1.3 H (<1.0) mg/dL Total Protein 5.3 L (6.3-8.2) g/dL Albumin 3.0 L (3.5-5.0) g/dL Urine Appearance (Clear) Urine Protein (Negative) Urine Blood (Negative) Ur Leukocyte Esterase (Negative) Urine RBC (0-5) /hpf Urine WBC (0-5) /hpf Urine Bacteria (None) /hpf Urine Mucus (None) /hpf 03/09/24 03/09/24 03/09/24 Range/Units 06:57 10:08 11:48 Chloride (98-107) mmol/L BUN (7-17) mg/dL Creatinine (0.52-1.04) mg/dL Glucose (74-99) mg/dL POC Glucose (mg/dL) 145 H 186 H (70-110) mg/dL Total Bilirubin (0.2-1.3) mg/dL AST (14-36) U/L ALT (4-34) U/L Alkaline Phosphatase (38-126) U/L C-Reactive Protein (<1.0) mg/dL Total Protein (6.3-8.2) g/dL Albumin (3.5-5.0) g/dL Urine Appearance Cloudy H (Clear) Urine Protein 2+ H (Negative) Urine Blood Trace H (Negative) Ur Leukocyte Esterase Large H (Negative) Urine RBC 8 H (0-5) /hpf Urine WBC >182 H (0-5) /hpf Urine Bacteria Many H (None) /hpf Urine Mucus Many H (None) /hpf Microbiology - Last 24 Hours (Table) 03/06/24 17:21 Blood Culture - Preliminary Blood 03/06/24 17:07 Blood Culture - Preliminary Blood
[2024-03-09 17:17] LABS: Glucose,Whole Blood 162 mg/dL (70-110)
--- NOTE | 2024-03-09 18:26 | P.PN ---
Subjective Patient is seen for follow-up for acute kidney injury. Status post recent diuresis. IV fluids and diuretics currently on hold. Mentation slightly improved this morning but patient is not able to carry on a conversation. Serum creatinine improved to 1.2 today. Objective - Vital Signs Vital signs: Vital Signs Temp 97.7 F 03/09/24 14:01 Pulse 121 H 03/09/24 14:01 Resp 24 03/09/24 14:01 BP 138/89 03/09/24 14:01 Pulse Ox 97 03/09/24 14:01 FiO2 Intake & Output 03/08/24 03/09/24 03/09/24 18:59 06:59 18:59 Intake Total 240 Output Total 100 Balance 140 Intake: Oral 240 Output: Urine 100 Other: Voiding Method Diaper Diaper Diaper Incontinent Incontinent Incontinent # Voids 3 1 2 # Bowel Movements 1 - Exam patient is sleeping. She is arousable but does not communicate much. Appears slightly better than yesterday. Examination of the heart S1 and S2 Examination of the lungs bilateral breath sounds are heard no crackles are heard Abdomen is soft nontender Examination of lower extremities shows no significant edema [employer] exam shows patient is moving all 4 extremities but does not communicate - Labs CBC & Chem 7: 03/08/24 04:29 03/09/24 06:47 Labs: Abnormal Lab Results - Last 24 Hours (Table) 03/08/24 03/09/24 03/09/24 Range/Units 19:55 06:47 06:57 Chloride 114 H (98-107) mmol/L BUN 24 H (7-17) mg/dL Creatinine 1.20 H (0.52-1.04) mg/dL Glucose 144 H (74-99) mg/dL POC Glucose (mg/dL) 168 H 145 H (70-110) mg/dL Total Bilirubin 1.9 H (0.2-1.3) mg/dL AST 83 H (14-36) U/L ALT 130 H (4-34) U/L Alkaline Phosphatase 222 H (38-126) U/L C-Reactive Protein 1.3 H (<1.0) mg/dL Total Protein 5.3 L (6.3-8.2) g/dL Albumin 3.0 L (3.5-5.0) g/dL Urine Appearance (Clear) Urine Protein (Negative) Urine Blood (Negative) Ur Leukocyte Esterase (Negative) Urine RBC (0-5) /hpf Urine WBC (0-5) /hpf Urine Bacteria (None) /hpf Urine Mucus (None) /hpf 03/09/24 03/09/24 03/09/24 Range/Units 10:08 11:48 17:15 Chloride (98-107) mmol/L BUN (7-17) mg/dL Creatinine (0.52-1.04) mg/dL Glucose (74-99) mg/dL POC Glucose (mg/dL) 186 H 162 H (70-110) mg/dL Total Bilirubin (0.2-1.3) mg/dL AST (14-36) U/L ALT (4-34) U/L Alkaline Phosphatase (38-126) U/L C-Reactive Protein (<1.0) mg/dL Total Protein (6.3-8.2) g/dL Albumin (3.5-5.0) g/dL Urine Appearance Cloudy H (Clear) Urine Protein 2+ H (Negative) Urine Blood Trace H (Negative) Ur Leukocyte Esterase Large H (Negative) Urine RBC 8 H (0-5) /hpf Urine WBC >182 H (0-5) /hpf Urine Bacteria Many H (None) /hpf Urine Mucus Many H (None) /hpf Microbiology - Last 24 Hours (Table) 03/06/24 17:21 Blood Culture - Preliminary Blood 03/06/24 17:07 Blood Culture - Preliminary Blood Assessment and Plan Assessment: 1. Acute kidney injury most likely ATN, improved. Restarted on diuretics as chest x-ray from today does show pulmonary vascular congestion. UA is unr emarkable with 3 WBCs noted. No evidence of obstruction on ultrasound. 2. Mental status changes, mostly metabolic encephalopathy. Patient is being followed by neurology. CT of the brain was unremarkable. 3. status post recent treatment for UTI as outpatient with Cipro 4. chronic A. fib Plan: Decrease diuretics in a.m. if volume status has improved. Repeat labs in a.m. Continue off of angiotensin receptor blockers
--- NOTE | 2024-03-09 20:03 | P.PN ---
Subjective Progress Note Date: 03/09/24 Patient was seen for a follow-up. Patient's daughter was present today. She is concerned that patient is not eating or drinking. I spoke with the nurse, who said that patient had good breakfast and lunch, did not had dinner. Patient states fingerstick glucose are running on the high side. Patient continues to speak sporadically but mostly mumbling. She responds by moving her eyebrows. N o seizure-like activity. Patient has been found to have acute UTI. Objective - Vital Signs Vital signs: Vital Signs Temp 97.7 F 03/09/24 14:01 Pulse 121 H 03/09/24 14:01 Resp 24 03/09/24 14:01 BP 138/89 03/09/24 14:01 Pulse Ox 97 03/09/24 14:01 FiO2 Intake & Output 03/09/24 03/09/24 03/10/24 06:59 18:59 06:59 Intake Total 240 Output Total 100 Balance 140 Intake: Oral 240 Output: Urine 100 Other: Voiding Method Diaper Diaper Incontinent Incontinent # Voids 1 2 # Bowel Movements 1 - Exam Patient continues to be encephalopathic, keeps her eyes closed. She speaks as mentioned above. Patient moves all 4 extremities equally. Patient has multiple scratches on her body from bedbugs bite. Uncertain if there is some cellulitis. Patient speaks some words when she wants to go to the bathroom. She moves all 4 extremities. - Labs CBC & Chem 7: 03/08/24 04:29 03/09/24 06:47 Labs: Abnormal Lab Results - Last 24 Hours (Table) 03/08/24 03/09/24 03/09/24 Range/Units 19:55 06:47 06:57 Chloride 114 H (98-107) mmol/L BUN 24 H (7-17) mg/dL Creatinine 1.20 H (0.52-1.04) mg/dL Glucose 144 H (74-99) mg/dL POC Glucose (mg/dL) 168 H 145 H (70-110) mg/dL Total Bilirubin 1.9 H (0.2-1.3) mg/dL AST 83 H (14-36) U/L ALT 130 H (4-34) U/L Alkaline Phosphatase 222 H (38-126) U/L C-Reactive Protein 1.3 H (<1.0) mg/dL Total Protein 5.3 L (6.3-8.2) g/dL Albumin 3.0 L (3.5-5.0) g/dL Urine Appearance (Clear) Urine Protein (Negative) Urine Blood (Negative) Ur Leukocyte Esterase (Negative) Urine RBC (0-5) /hpf Urine WBC (0-5) /hpf Urine Bacteria (None) /hpf Urine Mucus (None) /hpf 03/09/24 03/09/24 03/09/24 Range/Units 10:08 11:48 17:15 Chloride (98-107) mmol/L BUN (7-17) mg/dL Creatinine (0.52-1.04) mg/dL Glucose (74-99) mg/dL POC Glucose (mg/dL) 186 H 162 H (70-110) mg/dL Total Bilirubin (0.2-1.3) mg/dL AST (14-36) U/L ALT (4-34) U/L Alkaline Phosphatase (38-126) U/L C-Reactive Protein (<1.0) mg/dL Total Protein (6.3-8.2) g/dL Albumin (3.5-5.0) g/dL Urine Appearance Cloudy H (Clear) Urine Protein 2+ H (Negative) Urine Blood Trace H (Negative) Ur Leukocyte Esterase Large H (Negative) Urine RBC 8 H (0-5) /hpf Urine WBC >182 H (0-5) /hpf Urine Bacteria Many H (None) /hpf Urine Mucus Many H (None) /hpf Microbiology - Last 24 Hours (Table) 03/06/24 17:21 Blood Culture - Preliminary Blood 03/06/24 17:07 Blood Culture - Preliminary Blood Assessment and Plan Assessment: * Altered mental status, likely due to toxic metabolic encephalopathy. Patient diagnosed with acute UTI. 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 * Elevated hemoglobin A1c 8.0, probable with new onset diabetes. * Acute kidney injury, today further better * Elevated liver enzymes, today further better * Congestive heart failure with EF 25% * COPD * Hypothyroidism, getting worse * Poor social condition with bedbugs infestation. Status post decontamination Plan: * Patient's mentation has not much improved. Patient is still very encephalopathic, confused, slurring. * Repeat CT head, showed no acute process. * MRI was attempted, but patient did not cooperate and was very restless. It was aborted. * Patient now diagnosed with acute UTI, started on Zosyn. ID following. * Patient's renal functions, and liver functions have improved. * GI has seen the patient, ordered labs. Reviewed notes. * Patient has multiple scratches on the body. Uncertain if there is some cellulitis. Consult infectious disease. * Carotid Doppler could not be performed as patient was not cooperative. * EEG was performed, which was abnormal due to background slowing of moderate to severe degree. This is suggestive of generalized cerebral dysfunction as can be seen with toxic metabolic encephalopathy or related to diffuse structural brain abnormality. Clinical correlation is recommended. No epileptiform activity was seen. * B12 1659, folate 30.9, MMA, B6, pending. Ammonia is normal 16. * Hemoglobin A1c 8.0, consistent with new onset diabetes. Patient does have history of borderline diabetes in the past. Will defer to IM. * Patient has atrial fibrillation, currently on Eliquis 5 mg twice daily and Plavix. These will be continued. * Patient's thyroid functions are abnormal. We will defer to IM. * Treatment of other medical conditions as per IM. * Dr. Joe Mayes to resume neurology service in the morning.
[2024-03-09 20:26] LABS: Glucose,Whole Blood 177 mg/dL (70-110)
[2024-03-09] MEDS: FUROSEMIDE 10 MG/ML 4 ML VIAL IV SCH (22:02)
[2024-03-09] MEDS: QUEtiapine 25 MG TAB PO SCH (22:02)
[2024-03-09] MEDS: PIPERACILLIN-TAZOBACTAM 3.375 GM in SODIUM CHLORIDE 0.9% 100 ML IVPB SCH (22:13)
[2024-03-10 05:51] LABS: Anisocytosis Slight; HCT 50.1 % (34.0-46.0); HGB 15.1 gm/dL (11.4-16.0); Hypochromasia Moderate; MCH 31.5 pg (25.0-35.0); MCHC 30.2 g/dL (31.0-37.0); MCV 104.3 fL (80.0-100.0); Macrocytosis Moderate; Mean Platelet Volume 9.2; Platelet Count 284 k/uL (150-450); WBC 8.8 k/uL (3.8-10.6)
[2024-03-10 05:52] LABS: ALT 126 U/L (4-34); AST 109 U/L (14-36); African American GFR (CKD) 34 (>60 ml/min/1.73 sqM); Albumin 2.9 g/dL (3.5-5.0); Albumin/Globulin Ratio 1.3; Alkaline Phosphatase 243 U/L (38-126); Anion Gap 4 mmol/L; Blood Urea Nitrogen 32 mg/dL (7-17); Calcium 9.3 mg/dL (8.4-10.2); Carbon Dioxide 23 mmol/L (22-30); Chloride 115 mmol/L (98-107); Globulin 2.3 g/dL; Glucose 157 mg/dL (74-99); Non-African American GFR(CKD) 30 (>60 ml/min/1.73 sqM); Phosphorus 4.4 mg/dL (2.5-4.5); Potassium 4.7 mmol/L (3.5-5.1); Sodium 142 mmol/L (137-145); Total Protein 5.2 g/dL (6.3-8.2)
[2024-03-10 05:54] LABS: INR 1.3 (<1.2); Prothrombin Time 13.4 sec (10.0-12.5)
[2024-03-10 07:08] LABS: Glucose,Whole Blood 167 mg/dL (70-110)
--- NOTE | 2024-03-10 08:38 | P.PN ---
Subjective Patient is seen in follow-up for acute kidney injury. Creatinine 1.64 today. Per nurse, more drowsy today. Remains in A-fib. On IV Lasix. Vital signs: Afebrile. Blood pressure on the higher side. In A-fib. General: No acute distress. HEENT: Head exam is unremarkable. LUNGS: No audible rhonchi or wheezes. HEART: Irregular rate and rhythm. ABDOMEN: Nontender. EXTREMITITES: No edema. Objective - Vital Signs Vital signs: Vital Signs Temp 97.7 F 03/10/24 07:18 Pulse 114 H 03/10/24 07:18 Resp 17 03/10/24 07:18 BP 160/139 03/10/24 07:18 Pulse Ox 97 03/10/24 07:57 FiO2 Intake & Output 03/09/24 03/10/24 03/10/24 18:59 06:59 18:59 Intake Total 240 Output Total 100 100 Balance 140 -100 Intake: Oral 240 Output: Urine 100 100 Other: Voiding Method Diaper Diaper Incontinent Incontinent External Catheter # Voids 2 # Bowel Movements 1 - Labs CBC & Chem 7: 03/10/24 05:15 03/10/24 05:15 Labs: Abnormal Lab Results - Last 24 Hours (Table) 03/09/24 03/09/24 03/09/24 Range/Units 06:47 10:08 11:48 Hct (34.0-46.0) % MCV (80.0-100.0) fL MCHC (31.0-37.0) g/dL RDW (11.5-15.5) % PT (10.0-12.5) sec INR (<1.2) Chloride (98-107) mmol/L BUN (7-17) mg/dL Creatinine (0.52-1.04) mg/dL Glucose (74-99) mg/dL POC Glucose (mg/dL) 186 H (70-110) mg/dL Total Bilirubin (0.2-1.3) mg/dL AST (14-36) U/L ALT (4-34) U/L Alkaline Phosphatase (38-126) U/L C-Reactive Protein 1.3 H (<1.0) mg/dL Total Protein (6.3-8.2) g/dL Albumin (3.5-5.0) g/dL Urine Appearance Cloudy H (Clear) Urine Protein 2+ H (Negative) Urine Blood Trace H (Negative) Ur Leukocyte Esterase Large H (Negative) Urine RBC 8 H (0-5) /hpf Urine WBC >182 H (0-5) /hpf Urine Bacteria Many H (None) /hpf Urine Mucus Many H (None) /hpf 03/09/24 03/09/24 03/10/24 Range/Units 17:15 20:24 05:15 Hct 50.1 H (34.0-46.0) % MCV 104.3 H (80.0-100.0) fL MCHC 30.2 L (31.0-37.0) g/dL RDW 18.0 H (11.5-15.5) % PT (10.0-12.5) sec INR (<1.2) Chloride (98-107) mmol/L BUN (7-17) mg/dL Creatinine (0.52-1.04) mg/dL Glucose (74-99) mg/dL POC Glucose (mg/dL) 162 H 177 H (70-110) mg/dL Total Bilirubin (0.2-1.3) mg/dL AST (14-36) U/L ALT (4-34) U/L Alkaline Phosphatase (38-126) U/L C-Reactive Protein (<1.0) mg/dL Total Protein (6.3-8.2) g/dL Albumin (3.5-5.0) g/dL Urine Appearance (Clear) Urine Protein (Negative) Urine Blood (Negative) Ur Leukocyte Esterase (Negative) Urine RBC (0-5) /hpf Urine WBC (0-5) /hpf Urine Bacteria (None) /hpf Urine Mucus (None) /hpf 03/10/24 03/10/24 03/10/24 Range/Units 05:15 05:15 07:00 Hct (34.0-46.0) % MCV (80.0-100.0) fL MCHC (31.0-37.0) g/dL RDW (11.5-15.5) % PT 13.4 H (10.0-12.5) sec INR 1.3 H (<1.2) Chloride 115 H (98-107) mmol/L BUN 32 H (7-17) mg/dL Creatinine 1.64 H (0.52-1.04) mg/dL Glucose 157 H (74-99) mg/dL POC Glucose (mg/dL) 167 H (70-110) mg/dL Total Bilirubin 2.0 H (0.2-1.3) mg/dL AST 109 H (14-36) U/L ALT 126 H (4-34) U/L Alkaline Phosphatase 243 H (38-126) U/L C-Reactive Protein (<1.0) mg/dL Total Protein 5.2 L (6.3-8.2) g/dL Albumin 2.9 L (3.5-5.0) g/dL Urine Appearance (Clear) Urine Protein (Negative) Urine Blood (Negative) Ur Leukocyte Esterase (Negative) Urine RBC (0-5) /hpf Urine WBC (0-5) /hpf Urine Bacteria (None) /hpf Urine Mucus (None) /hpf Microbiology - Last 24 Hours (Table) 03/06/24 17:21 Blood Culture - Preliminary Blood 03/06/24 17:07 Blood Culture - Preliminary Blood Assessment and Plan Plan: Assessment: 1. Acute kidney injury secondary to ATN secondary to cardiorenal syndrome. Creatinine 1.64 today. No hydronephrosis noted on kidney ultrasound. Both kidneys atrophic. 2. Chronic kidney disease stage IIIa with baseline creatinine 1.1-1.2 in October and November 2023. 3. A-fib with RVR. On metoprolol. Cardiology following. On metoprolol. 4. Diabetes mellitus. 5. Acute on chronic systolic CHF with ejection fraction of 25 to 30% with mild to moderate mitral and tricuspid regurgitation and moderate pulmonary hypertension noted on echocardiogram done October 2023. 6. Volume overload. 7. Hypothyroidism maintained on Synthroid. Plan: Maintain IV Lasix for now. Repeat chest x-ray tomorrow morning. Encouraged oral intake. Avoid nephrotoxins. Continue to monitor renal function and urine output. Add as needed hydralazine.
--- NOTE | 2024-03-10 11:34 | P.PN ---
Subjective HISTORY OF PRESENT ILLNESS: This is a 78-year-old female patient of Dr. Garibay with past medical history of atrial tachycardia with RVR, persistent atrial fibrillation, dilated cardiomyopathy with a EF of 25%, coronary artery disease status post stenting, moderate mitral regurgitation. We have been asked to evaluate the patient for A-fib with RVR. Patient was brought into the hospital on 03/04 for altered mental status and has been seen and followed by neurology, GI for elevated liver function test. This morning, patient is minimally responsive to verbal stimuli. She briefly opens her eyes only. EKG A-fib with moderate ventricular rate, telemetry atrial fibrillation with moderately controlled ventricular rate Chest x-ray: Performed 03/07 reveals mild bibasilar infiltrates correlate for pneumonia and atelectasis. Carotid duplex nondiagnostic study WBC 8, hemoglobin 13.2. Sodium 138, potassium 4.3, BUN 25 and creatinine 1.53. A1c 8. Elevated liver function test. TSH 14.9 with free T4 normal at 1.76. Hepatitis panel negative. Urine drug screen positive for benzodiazepines. Home cardiac medications: Eliquis 5 mg twice daily, atorvastatin 40 mg at bedtime, Plavix 75 mg daily, Lasix 40 mg daily, losartan 25 mg at bedtime, Toprol-XL 100 mg daily, Nitrostat as needed, Aldactone 25 mg daily, patient also on levothyroxine 50 mcg daily. Echocardiogram performed on 03/01/2024 reveals EF of 45 to 50%, moderate to severe mitral regurgitation, moderate tricuspid regurgitation, moderately increased pulmonary artery systolic pressure of 49 mmHg. Physiologic pulmonic regurgitation. Electrocardioversion 11/29/2023 for persistent atrial fibrillation and associated cardiomyopathy Electrocardioversion 10/10/2023 for persistent atrial fibrillation Cardiac catheterization 11/07/[address] Ulrich revealed 80% diffuse calcified mid LAD disease, TIMI3 flow, mild CAD in the left circumflex and RCA. Normal left-sided filling pressures. LVEF 25% by echocardiogram. PCI 11/07/[address] Moreira with stenting of the proximal LAD 03/09/2024 Patient is a 78-year-old female who presented to hospital with status A-fib RVR. Patient remains relatively unresponsive today, unable to answer questions or respond to questions. She continues to moan incoherently. Unknown etiology for patient's altered mental status. 03/10/2024 Patient examined this morning at the bedside. Patient's family is present. Patient remains lethargic and unable to answer any questions. Patient remains on IV Lasix 40 mg every 12 hours per primary medicine. Patient remains in atrial fibrillation with a heart rate in the 120s. She is currently on metoprolol 150 mg twice a day. Blood pressure has also been elevated with a systolic in the 160s and a diastolic ranging between [id number]. PHYSICAL EXAM: VITAL SIGNS: Reviewed. GENERAL: Well-developed in no acute distress. NECK: Supple. No JVD or thyromegaly LUNGS: Respirations even and unlabored. Lungs essentially clear to auscultation bilaterally. HEART: Tachycardic. Irregular rate and rhythm. S1 and S2 heard. EXTREMITIES: Normal range of motion. No clubbing or cyanosis. Peripheral pulses intact. No lower extremity edema ASSESSMENT: Altered mental status Persistent atrial fibrillation with RVR Acute on chronic heart failure with mildly reduced EF, 45-50, previously reduced EF of 25% Transaminitis Acute kidney injury History of atrial tachycardia with RVR Dilated cardiomyopathy with EF of 25% in the past, now 45 to 50% Coronary artery disease status post stenting Moderate mitral regurgitation and moderate tricuspid regurgitation Abnormal TSH PLAN: Add Cardizem 30 mg 3 times a day Continue additional cardiac medications Continue current dose of metoprolol Continue telemetry monitoring Decrease Lasix to once daily dosing secondary to increased creatinine this morning Further recommendations pending patient course Nurse practitioner note has been reviewed by physician. Signing provider agrees with the documented findings, assessment, and plan of care documented by [employer] as a scribe. Objective - Vital Signs Vital signs: Vital Signs Temp 97.7 F 03/10/24 07:18 Pulse 125 H 03/10/24 09:11 Resp 17 03/10/24 07:18 BP 136/102 03/10/24 09:11 Pulse Ox 97 03/10/24 07:57 FiO2 Intake & Output 03/09/24 03/10/24 03/10/24 18:59 06:59 18:59 Intake Total 240 Output Total 100 100 Balance 140 -100 Intake: Oral 240 Output: Urine 100 100 Other: Voiding Method Diaper Diaper Incontinent Incontinent External Catheter # Voids 2 # Bowel Movements 1 - Labs CBC & Chem 7: 03/10/24 05:15 03/10/24 05:15 Labs: Abnormal Lab Results - Last 24 Hours (Table) 03/09/24 03/09/24 03/09/24 Range/Units 10:08 11:48 17:15 Hct (34.0-46.0) % MCV (80.0-100.0) fL MCHC (31.0-37.0) g/dL RDW (11.5-15.5) % PT (10.0-12.5) sec INR (<1.2) Chloride (98-107) mmol/L BUN (7-17) mg/dL Creatinine (0.52-1.04) mg/dL Glucose (74-99) mg/dL POC Glucose (mg/dL) 186 H 162 H (70-110) mg/dL Total Bilirubin (0.2-1.3) mg/dL AST (14-36) U/L ALT (4-34) U/L Alkaline Phosphatase (38-126) U/L Total Protein (6.3-8.2) g/dL Albumin (3.5-5.0) g/dL Urine Appearance Cloudy H (Clear) Urine Protein 2+ H (Negative) Urine Blood Trace H (Negative) Ur Leukocyte Esterase Large H (Negative) Urine RBC 8 H (0-5) /hpf Urine WBC >182 H (0-5) /hpf Urine Bacteria Many H (None) /hpf Urine Mucus Many H (None) /hpf 03/09/24 03/10/24 03/10/24 Range/Units 20:24 05:15 05:15 Hct 50.1 H (34.0-46.0) % MCV 104.3 H (80.0-100.0) fL MCHC 30.2 L (31.0-37.0) g/dL RDW 18.0 H (11.5-15.5) % PT 13.4 H (10.0-12.5) sec INR 1.3 H (<1.2) Chloride (98-107) mmol/L BUN (7-17) mg/dL Creatinine (0.52-1.04) mg/dL Glucose (74-99) mg/dL POC Glucose (mg/dL) 177 H (70-110) mg/dL Total Bilirubin (0.2-1.3) mg/dL AST (14-36) U/L ALT (4-34) U/L Alkaline Phosphatase (38-126) U/L Total Protein (6.3-8.2) g/dL Albumin (3.5-5.0) g/dL Urine Appearance (Clear) Urine Protein (Negative) Urine Blood (Negative) Ur Leukocyte Esterase (Negative) Urine RBC (0-5) /hpf Urine WBC (0-5) /hpf Urine Bacteria (None) /hpf Urine Mucus (None) /hpf 03/10/24 03/10/24 Range/Units 05:15 07:00 Hct (34.0-46.0) % MCV (80.0-100.0) fL MCHC (31.0-37.0) g/dL RDW (11.5-15.5) % PT (10.0-12.5) sec INR (<1.2) Chloride 115 H (98-107) mmol/L BUN 32 H (7-17) mg/dL Creatinine 1.64 H (0.52-1.04) mg/dL Glucose 157 H (74-99) mg/dL POC Glucose (mg/dL) 167 H (70-110) mg/dL Total Bilirubin 2.0 H (0.2-1.3) mg/dL AST 109 H (14-36) U/L ALT 126 H (4-34) U/L Alkaline Phosphatase 243 H (38-126) U/L Total Protein 5.2 L (6.3-8.2) g/dL Albumin 2.9 L (3.5-5.0) g/dL Urine Appearance (Clear) Urine Protein (Negative) Urine Blood (Negative) Ur Leukocyte Esterase (Negative) Urine RBC (0-5) /hpf Urine WBC (0-5) /hpf Urine Bacteria (None) /hpf Urine Mucus (None) /hpf Microbiology - Last 24 Hours (Table) 03/06/24 17:21 Blood Culture - Preliminary Blood 03/06/24 17:07 Blood Culture - Preliminary Blood
[2024-03-10 12:26] LABS: Glucose,Whole Blood 159 mg/dL (70-110)
[2024-03-10] MEDS: DILTIAZEM ORAL 30 MG TAB PO SCH (13:01)
[2024-03-10] MEDS: hydrALAZINE HCL 20 MG/ML 1 ML VIAL IVP PRN (13:12)
--- NOTE | 2024-03-10 14:51 | P.PN ---
Subjective Progress Note Date: 03/10/24 I am seeing the patient for the first time during this admission. Please refer to Dr. Hunt's notes for further details. The patient has altered mental status and was found to due to toxic metabolic encephalopathy. Patient has acute urinary tract infection. During this hospital visit the MRI was attempted but did not cooperate for and was restless therefore was aborted. She had an EEG which was negative for any seizure or discharges. It shows suggestive of toxic metabolic encephalopathy. Today the patient drowsy. Objective - Vital Signs Vital signs: Vital Signs Temp 97.7 F 03/10/24 07:18 Pulse 125 H 03/10/24 13:47 Resp 17 03/10/24 07:18 BP 110/74 03/10/24 13:47 Pulse Ox 97 03/10/24 13:47 FiO2 Intake & Output 03/09/24 03/10/24 03/10/24 18:59 06:59 18:59 Intake Total 240 Output Total 100 100 Balance 140 -100 Intake: Oral 240 Output: Urine 100 100 Other: Voiding Method Diaper Diaper Diaper Incontinent Incontinent Incontinent External Catheter External Catheter # Voids 2 # Bowel Movements 1 - Exam General: Lying in bed and does not appear in acute distress. HENT: Supple neck Neuro: very limited. Is severely drowsy and is minimally open the eyes very briefly. Not verbalizing or following commands. Decrease tone throughout. - Labs CBC & Chem 7: 03/10/24 05:15 03/10/24 05:15 Labs: Abnormal Lab Results - Last 24 Hours (Table) 03/09/24 03/09/24 03/10/24 Range/Units 17:15 20:24 05:15 Hct 50.1 H (34.0-46.0) % MCV 104.3 H (80.0-100.0) fL MCHC 30.2 L (31.0-37.0) g/dL RDW 18.0 H (11.5-15.5) % PT (10.0-12.5) sec INR (<1.2) Chloride (98-107) mmol/L BUN (7-17) mg/dL Creatinine (0.52-1.04) mg/dL Glucose (74-99) mg/dL POC Glucose (mg/dL) 162 H 177 H (70-110) mg/dL Total Bilirubin (0.2-1.3) mg/dL AST (14-36) U/L ALT (4-34) U/L Alkaline Phosphatase (38-126) U/L Total Protein (6.3-8.2) g/dL Albumin (3.5-5.0) g/dL 03/10/24 03/10/24 03/10/24 Range/Units 05:15 05:15 07:00 Hct (34.0-46.0) % MCV (80.0-100.0) fL MCHC (31.0-37.0) g/dL RDW (11.5-15.5) % PT 13.4 H (10.0-12.5) sec INR 1.3 H (<1.2) Chloride 115 H (98-107) mmol/L BUN 32 H (7-17) mg/dL Creatinine 1.64 H (0.52-1.04) mg/dL Glucose 157 H (74-99) mg/dL POC Glucose (mg/dL) 167 H (70-110) mg/dL Total Bilirubin 2.0 H (0.2-1.3) mg/dL AST 109 H (14-36) U/L ALT 126 H (4-34) U/L Alkaline Phosphatase 243 H (38-126) U/L Total Protein 5.2 L (6.3-8.2) g/dL Albumin 2.9 L (3.5-5.0) g/dL 03/10/24 Range/Units 12:23 Hct (34.0-46.0) % MCV (80.0-100.0) fL MCHC (31.0-37.0) g/dL RDW (11.5-15.5) % PT (10.0-12.5) sec INR (<1.2) Chloride (98-107) mmol/L BUN (7-17) mg/dL Creatinine (0.52-1.04) mg/dL Glucose (74-99) mg/dL POC Glucose (mg/dL) 159 H (70-110) mg/dL Total Bilirubin (0.2-1.3) mg/dL AST (14-36) U/L ALT (4-34) U/L Alkaline Phosphatase (38-126) U/L Total Protein (6.3-8.2) g/dL Albumin (3.5-5.0) g/dL Microbiology - Last 24 Hours (Table) 03/06/24 17:21 Blood Culture - Preliminary Blood 03/06/24 17:07 Blood Culture - Preliminary Blood Assessment and Plan Assessment: * Altered mental status, likely due to toxic metabolic encephalopathy. Patient diagnosed with acute UTI. Patient is afebrile and no leukocytosis. 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 * Elevated hemoglobin A1c 8.0, probable with new onset diabetes. * Acute kidney injury, today further better * Elevated liver enzymes, today is slightly worse * Congestive heart failure with EF 25% * COPD * Hypothyroidism, getting worse * Poor social condition with bedbugs infestation. Status post decontamination Plan: * Repeat CT head, showed no acute process. * I will get repeat CT head today. If still confused by tomorrow will pursue with MRI Brain (it seems in past it was aborted since was restless). * Patient now diagnosed with acute UTI, started on Zosyn. ID following. * GI has seen the patient, ordered labs. Reviewed notes. * Patient has multiple scratches on the body. Uncertain if there is some cellulitis. Consult infectious disease. * Carotid Doppler could not be performed as patient was not cooperative. * EEG was performed, which was abnormal due to background slowing of moderate to severe degree. This is suggestive of generalized cerebral dysfunction as can be seen with toxic metabolic encephalopathy or related to diffuse structural brain abnormality. Clinical correlation is recommended. No epileptiform activity was seen. * B12 1659, folate 30.9, MMA, B6, pending. Ammonia is normal 16. * Hemoglobin A1c 8.0, consistent with new onset diabetes. Patient does have history of borderline diabetes in the past. Will defer to IM. * Patient has atrial fibrillation, currently on Eliquis 5 mg twice daily and Plavix. These will be continued. * Patient's thyroid functions are abnormal. We will defer to IM. * Treatment of other medical conditions as per IM. The plan is discussed with patient's family member who is at bedside and primary team. Time with Patient: Less than 30
--- NOTE | 2024-03-10 15:39 | P.PN ---
Subjective Progress Note Date: 03/10/24 Patient is a 78-year-old female with known hypertension, dyslipidemia, and A-fib who presented to the emergency department with altered mentation for the previous 2 weeks. Patient was recently being treated for urinary tract infection with Cipro and then nitrofurantoin. On arrival labs were remarkable for creatinine of 1.21 which appears to be at patient's baseline. She had mildly elevated bilirubin at 2.3, AST 65, and ALT of 60. Urinalysis was negative. Urine drug screen was positive for benzodiazepines. She underwent chest x-ray which showed cardiomegaly and COPD. She underwent CT head which demonstrated no acute intracranial process with remote left periventricular white matter changes consistent with small vessel ischemic disease. She was admitted and subsequently underwent liver ultrasound which demonstrated small right renal cyst. She was followed by neurology and GI. She underwent repeat head CT which again showed no acute process. She underwent EEG which demonstr ated moderate to severe background slowing consistent with toxic metabolic encephalopathy. She had carotid Dopplers performed which were nondiagnostic as patient was combative. She developed fluid overload and cardiology was subsequently consulted. It came to light that patient had history of dilated cardiomyopathy and with current ejection fraction 45 to 50%. GI was consulted and the patient had hepatitis serologies performed which were negative, and negative antimitochondrial antibody, and a normal alpha 1 antitrypsin and AFP. B12 and folate were normal. TSH was elevated at 14.9 and hemoglobin A1c was elevated at 8 consistent with new onset diabetes. She developed worsening JANNETH which was felt to be due to cardiorenal syndrome. And nephrology was consulted. Patient seen and examined at bedside. Family present at bedside. Does not answer questions today. Frequenting Per nursing as been eating. Slept form 9 pm to 4 am Vital signs reviewed General: Nontoxic, no distress, appears at stated age Cardiovascular: S1S2 reg, no murmur Lungs: Coarse breath sounds bilateral, no rhonchi, no rales, no accessory muscle use Abdominal: Soft, nontender to palpation, no guarding Ext: No gross muscle atrophy, 1+ edema bilateral lower extremities, no contractures Neuro: CN II-XI grossly intact, no focal neuro deficits Psych: Normal return oriented Assessment/Plan: Acute encephalopathy with history of underlying dementia, undetermined etiology Hypothyroidism -Possible multifocal etiologies including recent ciprofloxacin use, benzodiazepine use, under treated hypothyroidism, CVA -TSH is mildly elevated, levothyroxine increased to 75 mcg this hospital stay -Discussed with neurology, repeat CT head without contrast -Infectious disease: Low clinical suspicion for pneumonia or cellulitis -Patient unable to follow instructions for MRI brain -Stay off oral benzos. Patient has not been receiving any benzos since September 2023 -Will decrease to 12.5 daily during this admission -Previous head CT negative for any acute process, EEG consistent with toxic metabolic encephalopathy -UA is negative, ammonia negative -YANET pending -syphillus antibody negative -Repeat ammonia level Acute hypoxic respiratory failure Acute on chronic systolic congestive heart failure with ejection fraction 45 to 50% Persistent atrial fibrillation Hypertension -Continue to wean oxygen -Cardiology note reviewed: On metoprolol 150 twice daily, also started on Cardizem 30 3 times daily however, patient unable to take oral medications at the moment -Eliquis 5 mg twice daily, Plavix 75 mg daily -Plan to upgrade patient to stepdown unit. Transaminitis associated with hyperbilirubinemia, stable Possibly related to ciprofloxacin use versus hepatic congestion secondary to acute exacerbation of CHF -Patient had been following by GI. They recommend continuing to hold Lipitor. Follow-up with GI as an outpatient basis no further workup needed at this time. -Repeat CMP in a.m. Acute kidney injury chronic kidney disease stage III - improving - nephrolopgy recs reviewed: Continue IV Lasix 40 mg, monitor renal function and electrolytes, repeat chest x-ray tomorrow, as needed hydralazine added -Off of Aldactone and Cozaar Newly discovered diabetes -Continue with sliding scale insulin -Follow blood sugars -Will need oral medications on discharge to help with diabetes management but given liver and kidney dysfunction will defer decision of this until later time. Bedbug infestation on arrival -Status post decontamination Imaging: Renal US with right renal cyst CT head pending, will be reviewed when available Data Review: WBC 8.8, hemoglobin 15.1, sodium 142, creatinine 1.64, total bili 2, AST 109, ALT 126, ALP 243 DVT prophylaxis: eliquis Anticipated discharge date: pending clinical course Anticipated discharge place: pending clinical course Objective - Vital Signs Vital signs: Vital Signs Temp 97.7 F 03/10/24 07:18 Pulse 125 H 03/10/24 13:47 Resp 17 03/10/24 07:18 BP 110/74 03/10/24 13:47 Pulse Ox 97 06/03/24 13:47 FiO2 Intake & Output 03/09/24 03/10/24 03/10/24 18:59 06:59 18:59 Intake Total 240 Output Total 100 100 Balance 140 -100 Intake: Oral 240 Output: Urine 100 100 Other: Voiding Method Diaper Diaper Diaper Incontinent Incontinent Incontinent External Catheter External Catheter # Voids 2 # Bowel Movements 1 - Labs CBC & Chem 7: 03/10/24 05:15 03/10/24 05:15 Labs: Abnormal Lab Results - Last 24 Hours (Table) 03/09/24 03/09/24 03/10/24 Range/Units 17:15 20:24 05:15 Hct 50.1 H (34.0-46.0) % MCV 104.3 H (80.0-100.0) fL MCHC 30.2 L (31.0-37.0) g/dL RDW 18.0 H (11.5-15.5) % PT (10.0-12.5) sec INR (<1.2) Chloride (98-107) mmol/L BUN (7-17) mg/dL Creatinine (0.52-1.04) mg/dL Glucose (74-99) mg/dL POC Glucose (mg/dL) 162 H 177 H (70-110) mg/dL Total Bilirubin (0.2-1.3) mg/dL AST (14-36) U/L ALT (4-34) U/L Alkaline Phosphatase (38-126) U/L Total Protein (6.3-8.2) g/dL Albumin (3.5-5.0) g/dL 03/10/24 03/10/24 03/10/24 Range/Units 05:15 05:15 07:00 Hct (34.0-46.0) % MCV (80.0-100.0) fL MCHC (31.0-37.0) g/dL RDW (11.5-15.5) % PT 13.4 H (10.0-12.5) sec INR 1.3 H (<1.2) Chloride 115 H (98-107) mmol/L BUN 32 H (7-17) mg/dL Creatinine 1.64 H (0.52-1.04) mg/dL Glucose 157 H (74-99) mg/dL POC Glucose (mg/dL) 167 H (70-110) mg/dL Total Bilirubin 2.0 H (0.2-1.3) mg/dL AST 109 H (14-36) U/L ALT 126 H (4-34) U/L Alkaline Phosphatase 243 H (38-126) U/L Total Protein 5.2 L (6.3-8.2) g/dL Albumin 2.9 L (3.5-5.0) g/dL 03/10/24 Range/Units 12:23 Hct (34.0-46.0) % MCV (80.0-100.0) fL MCHC (31.0-37.0) g/dL RDW (11.5-15.5) % PT (10.0-12.5) sec INR (<1.2) Chloride (98-107) mmol/L BUN (7-17) mg/dL Creatinine (0.52-1.04) mg/dL Glucose (74-99) mg/dL POC Glucose (mg/dL) 159 H (70-110) mg/dL Total Bilirubin (0.2-1.3) mg/dL AST (14-36) U/L ALT (4-34) U/L Alkaline Phosphatase (38-126) U/L Total Protein (6.3-8.2) g/dL Albumin (3.5-5.0) g/dL Microbiology - Last 24 Hours (Table) 03/06/24 17:21 Blood Culture - Preliminary Blood 03/06/24 17:07 Blood Culture - Preliminary Blood
[2024-03-10] MEDS: PIPERACILLIN-TAZOBACTAM 3.375 GM in SODIUM CHLORIDE 0.9% 100 ML IVPB SCH (15:52)
[2024-03-10 16:43] LABS: Glucose,Whole Blood 167 mg/dL (70-110)
--- NOTE | 2024-03-10 17:22 | CT ---
EXAMINATION TYPE: CT brain wo con CT DLP: 1233 mGycm, Automated exposure control for dose reduction was used. DATE OF EXAM: 03/10/2024 3:19 PM COMPARISON: . CLINICAL INDICATION:Female, 78 years old with history of altered mental status, ams TECHNIQUE: Brain: Axial CT images of the brain were obtained with coronal and sagittal reformats created and rev iewed. Contrast used: None. Oral contrast used: None. FINDINGS: Brain: Extra-axial spaces: No abnormal extra-axial fluid collections. Ventricular system: Dilated ventricles and sulci consistent with involutional change Cerebral parenchyma: No acute intraparenchymal hemorrhage or mass effect. The garrison-white junction is well differentiated. Scattered hypoattenuating areas are seen within the white matter. Cerebellum: Unremarkable. Mass effect: No evidence of midline shift. Intracranial vasculature: unremarkable Soft tissues: Normal. Calvarium/osseous structures: No depressed skull fracture. Paranasal sinuses and mastoid air cells: Mild scattered paranasal sinus disease. Visualized orbits: Orbital contents are intact. IMPRESSION: No acute intracranial process. Age-related findings. No change from 03/06/2024
[2024-03-10] MEDS: DILTIAZEM 125 MG in SODIUM CHLORIDE 0.9% 100 ML IV SCH (17:59)
[2024-03-10] MEDS: DILTIAZEM DRIP BOLUS FROM BAG 1 MG SOLN IV ONE (17:59)
[2024-03-10 19:50] LABS: Glucose,Whole Blood 157 mg/dL (70-110)
[2024-03-11 06:11] LABS: Glucose,Whole Blood 145 mg/dL (70-110)
[2024-03-11] MEDS: FUROSEMIDE 10 MG/ML 4 ML VIAL IV SCH (07:34)
--- NOTE | 2024-03-11 08:55 | XR ---
EXAMINATION TYPE: XR chest 1V DATE OF EXAM: 03/11/2024 COMPARISON: 03/09/2024 HISTORY: 78 year-old female shortness of breath TECHNIQUE: Single frontal view of the chest is obtained. FINDINGS: Heart mild to moderately enlarged. Patchy mid and lower lung densities similar to slightly increased, particularly on the left. Underlying small bilateral pleural effusions. IMPRESSION: Mild patchy mid and lower lung densities particularly on the left slightly increased. On going cardiomegaly and small bilateral pleural effusions. Consider sequela of CHF.
--- NOTE | 2024-03-11 10:05 | P.PN ---
Subjective Patient is seen in follow-up for acute kidney injury. Creatinine 1.64 yesterday. On IV Lasix. Nonoliguric. On Cardizem drip for A-fib with RVR. Now has Navarrete catheter. Vital signs stable. General: No acute distress. HEENT: Head exam is unremarkable. LUNGS: No audible rhonchi or wheezes. HEART: Irregular rate and rhythm. ABDOMEN: Nontender. EXTREMITITES: No edema. Objective - Vital Signs Vital signs: Vital Signs Temp 98.1 F 03/11/24 08:00 Pulse 110 H 03/11/24 08:00 Resp 20 03/11/24 08:00 BP 151/66 03/11/24 08:00 Pulse Ox 95 03/11/24 08:00 FiO2 Intake & Output 03/10/24 03/11/24 03/11/24 18:59 06:59 18:59 Intake Total 0 108.667 0 Output Total 575 0 300 Balance -575 108.667 -300 Weight 95.6 kg Intake: Intake, IV Titration 108.667 Amount Diltiazem 125 mg In 108.667 Sodium Chloride 0.9% 100 ml @ 10 MG/HR 10 mls/hr IV .[id number] [facility] Rx#: [id number] Oral 0 0 0 Output: Urine 575 0 300 Other: Voiding Method Indwelling Catheter Indwelling Catheter Indwelling Catheter - Labs CBC & Chem 7: 03/10/24 05:15 03/10/24 05:15 Labs: Abnormal Lab Results - Last 24 Hours (Table) 03/10/24 03/10/24 03/10/24 Range/Units 12:23 16:42 19:49 POC Glucose (mg/dL) 159 H 167 H 157 H (70-110) mg/dL 03/11/24 Range/Units 06:09 POC Glucose (mg/dL) 145 H (70-110) mg/dL Microbiology - Last 24 Hours (Table) 03/09/24 10:08 Urine Culture - Preliminary Urine,Voided Gram Neg Bacilli Assessment and Plan Plan: Assessment: 1. Acute kidney injury secondary to ATN secondary to cardiorenal syndrome and hemodynamic instability. Creatinine 1.64 yesterday. No hydronephrosis noted on kidney ultrasound. Both kidneys atrophic. 2. Chronic kidney disease stage IIIa with baseline creatinine 1.1-1.2 in October and November 2023. 3. A-fib with RVR. On Cardizem drip. Cardiology following. 4. Diabetes mellitus. 5. Acute on chronic systolic CHF with ejection fraction of 25 to 30% with mild to moderate mitral and tricuspid regurgitation and moderate pulmonary hypertension noted on echocardiogram done October 2023. 6. Volume overload. On IV Lasix. 7. Hypothyroidism maintained on Synthroid. Plan: Maintain IV Lasix for now. Encouraged oral intake. Avoid nephrotoxins. Continue to monitor renal function and urine output.
[2024-03-11] MEDS: LORazepam 1 MG/0.5 ML VIAL IV PRN (10:34)
[2024-03-11 11:42] LABS: Glucose,Whole Blood 137 mg/dL (70-110)
--- NOTE | 2024-03-11 12:12 | P.PN ---
Objective - Vital Signs Vital signs: Vital Signs Temp 98.1 F 03/11/24 08:00 Pulse 110 H 03/11/24 08:00 Resp 20 03/11/24 08:00 BP 151/66 03/11/24 08:00 Pulse Ox 95 03/11/24 08:00 FiO2 Intake & Output 03/10/24 03/11/24 03/11/24 18:59 06:59 18:59 Intake Total 0 108.667 0 Output Total 575 0 300 Balance -575 108.667 -300 Weight 95.6 kg Intake: Intake, IV Titration 108.667 Amount Diltiazem 125 mg In 108.667 Sodium Chloride 0.9% 100 ml @ 10 MG/HR 10 mls/hr IV .[id number] [facility] Rx#: [id number] Oral 0 0 0 Output: Urine 575 0 300 Other: Voiding Method Indwelling Catheter Indwelling Catheter Indwelling Catheter - Labs CBC & Chem 7: 03/10/24 05:15 03/10/24 05:15 Labs: Abnormal Lab Results - Last 24 Hours (Table) 03/10/24 03/10/24 03/10/24 Range/Units 12:23 16:42 19:49 POC Glucose (mg/dL) 159 H 167 H 157 H (70-110) mg/dL 03/11/24 Range/Units 06:09 POC Glucose (mg/dL) 145 H (70-110) mg/dL Microbiology - Last 24 Hours (Table) 03/09/24 10:08 Urine Culture - Preliminary Urine,Voided Gram Neg Bacilli
[2024-03-11 13:39] LABS: ALT 85 U/L (4-34); African American GFR (CKD) 22 (>60 ml/min/1.73 sqM); Albumin 2.5 g/dL (3.5-5.0); Anion Gap 7 mmol/L; Blood Urea Nitrogen 43 mg/dL (7-17); Calcium 8.9 mg/dL (8.4-10.2); Carbon Dioxide 21 mmol/L (22-30); Chloride 118 mmol/L (98-107); Glucose 143 mg/dL (74-99); Non-African American GFR(CKD) 20 (>60 ml/min/1.73 sqM); Sodium 146 mmol/L (137-145); Total Bilirubin 1.9 mg/dL (0.2-1.3); Total Protein 4.7 g/dL (6.3-8.2)
[2024-03-11 13:44] LABS: Anisocytosis Slight; Basophils # (A) 0.1 k/uL (0-0.2); Basophils % (A) 1 %; Eosinophils % (A) 0 %; HCT 49.9 % (34.0-46.0); HGB 15.1 gm/dL (11.4-16.0); Hypochromasia Moderate; Lymphocytes # (A) 0.7 k/uL (1.0-4.8); Lymphocytes % (A) 7 %; MCH 31.6 pg (25.0-35.0); MCHC 30.2 g/dL (31.0-37.0); MCV 104.7 fL (80.0-100.0); Macrocytosis Marked; Mean Platelet Volume 9.2; Monocytes # (A) 0.7 k/uL (0-1.0); Monocytes % (A) 6 %; Neutrophils # (A) 8.8 k/uL (1.3-7.7); Neutrophils % (A) 85 %; Platelet Count 272 k/uL (150-450); RBC 4.76 m/uL (3.80-5.40); RDW 17.9 % (11.5-15.5); WBC 10.4 k/uL (3.8-10.6)
[2024-03-11] MEDS ORDERED: HEPARIN SODIUM 1,000 UN/ML (10ML VL) IV PRN (14:07)
[2024-03-11 14:12] LABS: AST 71 U/L (14-36); Alkaline Phosphatase 189 U/L (38-126); Potassium 4.7 mmol/L (3.5-5.1)
[2024-03-11] MEDS: HEPARIN SODIUM 1,000 UN/ML (10ML VL) IV ONE (14:30)
[2024-03-11] MEDS: HEPARIN SOD,PORK IN 0.45% NACL 25,000 UNIT in 0.45% NACL 1 250ML.BAG IV SCH (14:31)
--- NOTE | 2024-03-11 15:15 | P.PN ---
Subjective Progress Note Date: 03/11/24 HISTORY OF PRESENT ILLNESS: This is a 78-year-old female patient of Dr. Garibay with past medical history of atrial tachycardia with RVR, persistent atrial fibrillation, dilated cardiomyopathy with a EF of 25%, coronary artery disease status post stenting, moderate mitral regurgitation. We have been asked to evaluate the patient for A-fib with RVR. Patient was brought into the hospital on 03/04 for altered mental status and has been seen and followed by neurology, GI for elevated liver function test. This morning, patient is minimally responsive to verbal stimuli. She briefly opens her eyes only. EKG A-fib with moderate ventricular rate, telemetry atrial fibrillation with moderately controlled ventricular rate Chest x-ray: Performed 03/07 reveals mild bibasilar infiltrates correlate for pne umonia and atelectasis. Carotid duplex nondiagnostic study WBC 8, hemoglobin 13.2. Sodium 138, potassium 4.3, BUN 25 and creatinine 1.53. A1c 8. Elevated liver function test. TSH 14.9 with free T4 normal at 1.76. Hepatitis panel negative. Urine drug screen positive for benzodiazepines. Home cardiac medications: Eliquis 5 mg twice daily, atorvastatin 40 mg at bedtime, Plavix 75 mg daily, Lasix 40 mg daily, losartan 25 mg at bedtime, Toprol-XL 100 mg daily, Nitrostat as needed, Aldactone 25 mg daily, patient also on levothyroxine 50 mcg daily. Echocardiogram performed on 03/01/2024 reveals EF of 45 to 50%, moderate to severe mitral regurgitation, moderate tricuspid regurgitation, moderately increased pulmonary artery systolic pressure of 49 mmHg. Physiologic pulmonic regurgitation. Electrocardioversion 11/29/2023 for persistent atrial fibrillation and associated cardiomyopathy Electrocardioversion 10/10/2023 for persistent atrial fibrillation Cardiac catheterization 11/07/[address] Ulrich revealed 80% diffuse calcified mid LAD disease, TIMI3 flow, mild CAD in the left circumflex and RCA. Normal left-sided filling pressures. LVEF 25% by echocardiogram. PCI 11/07/[address] Moreira with stenting of the proximal LAD 03/09/2024 Patient is a 78-year-old female who presented to hospital with status A-fib RVR. Patient remains relatively unresponsive today, unable to answer questions or respond to questions. She continues to moan incoherently. Unknown etiology for patient's altered mental status. 03/10/2024 Patient examined this morning at the bedside. Patient's family is present. Patient remains lethargic and unable to answer any questions. Patient remains on IV Lasix 40 mg every 12 hours per primary medicine. Patient remains in atrial fibrillation with a heart rate in the 120s. She is currently on metoprolol 150 mg twice a day. Blood pressure has also been elevated with a systolic in the 160s and a diastolic ranging between [id number]. 03/11 Yesterday, patient went into [facility] with RVR and was transferred back to the cardiac stepdown unit. She was started on a Cardizem drip currently at 15 mg/h. Patient is unable to swallow and take her medications. She continues to have significant mental status changes of unclear etiology. She is followed by neurology and infectious disease. Heart rate is currently around the 1 teens to 120s. She is not on/able to take oral anticoagulation. Blood pressure 112/70, pulse ox 97% on 2 L nasal cannula. PHYSICAL EXAM: VITAL SIGNS: Reviewed. GENERAL: Well-developed in no acute distress. NECK: Supple. No JVD or thyromegaly LUNGS: Respirations even and unlabored. Lungs essentially clear to auscultation bilaterally. HEART: Mild tachycardic. Irregular rate and rhythm. S1 and S2 heard. EXTREMITIES: Normal range of motion. No clubbing or cyanosis. Peripheral pulses intact. No lower extremity edema ASSESSMENT: Altered mental status Persistent atrial fibrillation with RVR Acute on chronic heart failure with mildly reduced EF, 45-50, previously reduced EF of 25% Transaminitis Acute kidney injury History of atrial tachycardia with RVR Dilated cardiomyopathy with EF of 25% in the past, now 45 to 50% Coronary artery disease status post stenting Moderate mitral regurgitation and moderate tricuspid regurgitation Abnormal TSH PLAN: Continue Cardizem drip at 15 mg/h Start patient on heparin drip until she is able to take oral medications Further recommendations pending patient course Nurse practitioner note has been reviewed by physician. Signing provider agrees with the documented findings, assessment, and plan of care documented by MEMBER SERVICES REPRESENTATIVE as a scribe. Objective - Vital Signs Vital signs: Vital Signs Temp 97.6 F 03/11/24 11:38 Pulse 101 H 03/11/24 11:38 Resp 18 03/11/24 11:38 BP 112/70 03/11/24 11:38 Pulse Ox 97 03/11/24 11:38 FiO2 Intake & Output 03/10/24 03/11/24 03/11/24 18:59 06:59 18:59 Intake Total 0 108.667 0 Output Total 575 0 300 Balance -575 108.667 -300 Weight 95.6 kg Intake: Intake, IV Titration 108.667 Amount Diltiazem 125 mg In 108.667 Sodium Chloride 0.9% 100 ml @ 10 MG/HR 10 mls/hr IV .[id number] [facility] Rx#: [id number] Oral 0 0 0 Output: Urine 575 0 300 Other: Voiding Method Indwelling Catheter Indwelling Catheter Indwelling Catheter - Labs CBC & Chem 7: 03/11/24 12:29 03/11/24 12:29 Labs: Abnormal Lab Results - Last 24 Hours (Table) 03/10/24 03/10/24 03/11/24 Range/Units 16:42 19:49 06:09 Hct (34.0-46.0) % MCV (80.0-100.0) fL MCHC (31.0-37.0) g/dL RDW (11.5-15.5) % Neutrophils # (1.3-7.7) k/uL Lymphocytes # (1.0-4.8) k/uL Macrocytosis POC Glucose (mg/dL) 167 H 157 H 145 H (70-110) mg/dL 03/11/24 03/11/24 Range/Units 11:37 12:29 Hct 49.9 H (34.0-46.0) % MCV 104.7 H (80.0-100.0) fL MCHC 30.2 L (31.0-37.0) g/dL RDW 17.9 H (11.5-15.5) % Neutrophils # 8.8 H (1.3-7.7) k/uL Lymphocytes # 0.7 L (1.0-4.8) k/uL Macrocytosis Marked A POC Glucose (mg/dL) 137 H (70-110) mg/dL Microbiology - Last 24 Hours (Table) 03/09/24 10:08 Urine Culture - Preliminary Urine,Voided Gram Neg Bacilli
[2024-03-11] MEDS: DEXTROSE 5% IN WATER 1,000 ML IV SCH (15:38)
[2024-03-11 16:23] LABS: Glucose,Whole Blood 133 mg/dL (70-110)
[2024-03-11 16:27] LABS: INR 1.5 (<1.2); Prothrombin Time 15.3 sec (10.0-12.5)
[2024-03-11 16:33] LABS: Partial Thromboplastin Time >200.0 sec (22.0-30.0)
[2024-03-11] MEDS: PIPERACILLIN-TAZOBACTAM 3.375 GM in SODIUM CHLORIDE 0.9% 100 ML IVPB SCH (17:00)
[2024-03-11 20:19] LABS: Glucose,Whole Blood 152 mg/dL (70-110)
[2024-03-12 06:12] LABS: Glucose,Whole Blood 156 mg/dL (70-110)
--- NOTE | 2024-03-12 09:02 | P.PN ---
Subjective Progress Note Date: 03/09/24 Principal diagnosis: Reason for follow-up is urinary tract infection Patient is a 78-year-old female with a past medical history significant for hypertension hyperlipidemia sleep apnea atrial fibrillation patient has been brought into the hospital on 03/04/2024 for evaluation of increasing confusion, initial consult placed for bug bites and concern for possible cellulitis. On today's evaluation that is 03/09/2024, patient has been afebrile, patient is breathing comfortably and is currently on 2 L nasal cannula oxygen the patient remains to be lethargic nonresponsive did not answer any question and will be diarrhea has been reported by the family at the bedside. No CBC was done today patient creatinine is 1.20 urine was positive cultures pending Objective - Vital Signs Vital signs: Vital Signs Temp 97.3 F L 03/09/24 06:59 Pulse 100 03/09/24 08:40 Resp 24 03/09/24 08:40 BP 145/110 03/09/24 06:59 Pulse Ox 97 03/09/24 06:59 FiO2 Intake & Output 03/08/24 03/09/24 03/09/24 18:59 06:59 18:59 Other: Voiding Method Diaper Diaper Diaper Incontinent Incontinent Incontinent # Voids 3 1 - Exam GENERAL DESCRIPTION: An elderly female lying in bed in no distress RESPIRATORY SYSTEM: Unlabored breathing , decreased breath sounds at bases HEART: S1 S2 regular rate and rhythm , ABDOMEN: Soft , no tenderness EXTREMITIES: Multiple scratch and bite hernandez on the leg which are drying out - Labs CBC & Chem 7: 03/11/24 12:29 03/11/24 12:29 Labs: Abnormal Lab Results - Last 24 Hours (Table) 03/08/24 03/08/24 03/09/24 Range/Units 16:56 19:55 06:47 Chloride 114 H (98-107) mmol/L BUN 24 H (7-17) mg/dL Creatinine 1.20 H (0.52-1.04) mg/dL Glucose 144 H (74-99) mg/dL POC Glucose (mg/dL) 185 H 168 H (70-110) mg/dL Total Bilirubin 1.9 H (0.2-1.3) mg/dL AST 83 H (14-36) U/L ALT 130 H (4-34) U/L Alkaline Phosphatase 222 H (38-126) U/L C-Reactive Protein 1.3 H (<1.0) mg/dL Total Protein 5.3 L (6.3-8.2) g/dL Albumin 3.0 L (3.5-5.0) g/dL Urine Appearance (Clear) Urine Protein (Negative) Urine Blood (Negative) Ur Leukocyte Esterase (Negative) Urine RBC (0-5) /hpf Urine WBC (0-5) /hpf Urine Bacteria (None) /hpf Urine Mucus (None) /hpf 03/09/24 03/09/24 03/09/24 Range/Units 06:57 10:08 11:48 Chloride (98-107) mmol/L BUN (7-17) mg/dL Creatinine (0.52-1.04) mg/dL Glucose (74-99) mg/dL POC Glucose (mg/dL) 145 H 186 H (70-110) mg/dL Total Bilirubin (0.2-1.3) mg/dL AST (14-36) U/L ALT (4-34) U/L Alkaline Phosphatase (38-126) U/L C-Reactive Protein (<1.0) mg/dL Total Protein (6.3-8.2) g/dL Albumin (3.5-5.0) g/dL Urine Appearance Cloudy H (Clear) Urine Protein 2+ H (Negative) Urine Blood Trace H (Negative) Ur Leukocyte Esterase Large H (Negative) Urine RBC 8 H (0-5) /hpf Urine WBC >182 H (0-5) /hpf Urine Bacteria Many H (None) /hpf Urine Mucus Many H (None) /hpf Microbiology - Last 24 Hours (Table) 03/06/24 17:21 Blood Culture - Preliminary Blood 03/06/24 17:07 Blood Culture - Preliminary Blood Assessment and Plan (1) Urinary tract infection Current Visit: Yes Status: Acute Code(s): N39.0 - URINARY TRACT INFECTION, SITE NOT SPECIFIED SNOMED Code(s): 39565681 Plan: 1patient presented to hospital mental status changes likely multifactorial patient did have multiple bug bites to the lower extremity however those are drying out with no evidence of any active cellulitis at the same time the patient did have a chest x-ray with bibasilar infiltrate more likely representing atelectasis clinically not behaving as pneumonia in this patient with no fever or elevated white count 2-patient did have normal procalcitonin however she did have a positive UA 3-patient started on Zosyn to continue while waiting for the culture to finalize family at the bedside questions answered Dictation was produced using [employer] dictation software. please excuse any grammatical, word or spelling errors. Time with Patient: Less than 30
--- NOTE | 2024-03-12 09:03 | P.PN ---
Subjective Progress Note Date: 03/10/24 Principal diagnosis: Reason for follow-up is urinary tract infection Patient is a 78-year-old female with a past medical history significant for hypertension hyperlipidemia sleep apnea atrial fibrillation patient has been brought into the hospital on 03/04/2024 for evaluation of increasing confusion, initial consult placed for bug bites and concern for possible cellulitis. On today's evaluation that is 03/10/2024,the patient continues to be afebrile, patient is breathing comfortably on 2 L nasal cannula oxygen, the patient has been noted to be slightly restless remains to be nonverbal no vomiting diarrhea and the changes reported by the family at the bedside. Patient white count is 8.8 creatinine is 1.64 Objective - Vital Signs Vital signs: Vital Signs Temp 97.2 F L 03/10/24 20:45 Pulse 118 H 03/10/24 20:45 Resp 18 03/10/24 20:45 BP 135/80 03/10/24 20:45 Pulse Ox 94 L 03/10/24 20:45 FiO2 Intake & Output 03/10/24 03/10/24 03/11/24 06:59 18:59 06:59 Intake Total 0 Output Total 100 575 Balance -100 -575 Intake: Oral 0 Output: Urine 100 575 Other: Voiding Method Diaper Indwelling Catheter Indwelling Catheter Incontinent External Catheter - Labs CBC & Chem 7: 03/11/24 12:29 03/11/24 12:29 Labs: Abnormal Lab Results - Last 24 Hours (Table) 03/10/24 03/10/24 03/10/24 Range/Units 05:15 05:15 05:15 Hct 50.1 H (34.0-46.0) % MCV 104.3 H (80.0-100.0) fL MCHC 30.2 L (31.0-37.0) g/dL RDW 18.0 H (11.5-15.5) % PT 13.4 H (10.0-12.5) sec INR 1.3 H (<1.2) Chloride 115 H (98-107) mmol/L BUN 32 H (7-17) mg/dL Creatinine 1.64 H (0.52-1.04) mg/dL Glucose 157 H (74-99) mg/dL POC Glucose (mg/dL) (70-110) mg/dL Total Bilirubin 2.0 H (0.2-1.3) mg/dL AST 109 H (14-36) U/L ALT 126 H (4-34) U/L Alkaline Phosphatase 243 H (38-126) U/L Total Protein 5.2 L (6.3-8.2) g/dL Albumin 2.9 L (3.5-5.0) g/dL 03/10/24 03/10/24 03/10/24 Range/Units 07:00 12:23 16:42 Hct (34.0-46.0) % MCV (80.0-100.0) fL MCHC (31.0-37.0) g/dL RDW (11.5-15.5) % PT (10.0-12.5) sec INR (<1.2) Chloride (98-107) mmol/L BUN (7-17) mg/dL Creatinine (0.52-1.04) mg/dL Glucose (74-99) mg/dL POC Glucose (mg/dL) 167 H 159 H 167 H (70-110) mg/dL Total Bilirubin (0.2-1.3) mg/dL AST (14-36) U/L ALT (4-34) U/L Alkaline Phosphatase (38-126) U/L Total Protein (6.3-8.2) g/dL Albumin (3.5-5.0) g/dL 03/10/24 Range/Units 19:49 Hct (34.0-46.0) % MCV (80.0-100.0) fL MCHC (31.0-37.0) g/dL RDW (11.5-15.5) % PT (10.0-12.5) sec INR (<1.2) Chloride (98-107) mmol/L BUN (7-17) mg/dL Creatinine (0.52-1.04) mg/dL Glucose (74-99) mg/dL POC Glucose (mg/dL) 157 H (70-110) mg/dL Total Bilirubin (0.2-1.3) mg/dL AST (14-36) U/L ALT (4-34) U/L Alkaline Phosphatase (38-126) U/L Total Protein (6.3-8.2) g/dL Albumin (3.5-5.0) g/dL Microbiology - Last 24 Hours (Table) 03/09/24 10:08 Urine Culture - Preliminary Urine,Voided Gram Neg Bacilli 03/06/24 17:21 Blood Culture - Preliminary Blood 03/06/24 17:07 Blood Culture - Preliminary Blood Assessment and Plan (1) Urinary tract infection Current Visit: Yes Status: Acute Code(s): N39.0 - URINARY TRACT INFECTION, SITE NOT SPECIFIED SNOMED Code(s): 95461862 Plan: 1patient presented to hospital mental status changes likely multifactorial patient did have multiple bug bites to the lower extremity however those are drying out with no evidence of any active cellulitis at the same time the patient did have a chest x-ray with bibasilar infiltrate more likely representing atelectasis clinically not behaving as pneumonia in this patient with no fever or elevated white count 2-patient did have normal procalcitonin however she did have a positive UA 3-patient to continue with Zosyn while waiting for the culture to finalize and monitor clinical course closely Dictation was produced using [employer] dictation software. please excuse any grammatical, word or spelling errors. Time with Patient: Less than 30
--- NOTE | 2024-03-12 09:04 | P.PN ---
Subjective Progress Note Date: 03/11/24 Principal diagnosis: Reason for follow-up is urinary tract infection Patient is a 78-year-old female with a past medical history significant for hypertension hyperlipidemia sleep apnea atrial fibrillation patient has been brought into the hospital on 03/04/2024 for evaluation of increasing confusion, initial consult placed for bug bites and concern for possible cellulitis. On today's evaluation that is 03/11/2024,the patient remains to be afebrile, patient is on 2 L nasal cannula supplemental oxygen and seems to be more comfortable today not as restless no vomiting diarrhea any other changes reported by the nursing staff. Patient white count is 10.4 creatinine is 2.33 urine is growing gram-negative with ID sensitivities pending Objective - Vital Signs Vital signs: Vital Signs Temp 97.6 F 03/11/24 11:38 Pulse 101 H 03/11/24 11:38 Resp 18 03/11/24 11:38 BP 112/70 03/11/24 11:38 Pulse Ox 97 03/11/24 11:38 FiO2 Intake & Output 03/10/24 03/11/24 03/11/24 18:59 06:59 18:59 Intake Total 0 108.667 0 Output Total 575 0 300 Balance -575 108.667 -300 Weight 95.6 kg Intake: Intake, IV Titration 108.667 Amount Diltiazem 125 mg In 108.667 Sodium Chloride 0.9% 100 ml @ 10 MG/HR 10 mls/hr IV .[id number] [facility] Rx#: [id number] Oral 0 0 0 Output: Urine 575 0 300 Other: Voiding Method Indwelling Catheter Indwelling Catheter Indwelling Catheter - Exam GENERAL DESCRIPTION: An elderly female lying in bed in no distress RESPIRATORY SYSTEM: Unlabored breathing , decreased breath sounds at bases HEART: S1 S2 regular rate and rhythm , ABDOMEN: Soft , no tenderness EXTREMITIES: Multiple scratch and bite hernandez on the leg which are drying out - Labs CBC & Chem 7: 03/11/24 12:29 03/11/24 12:29 Labs: Abnormal Lab Results - Last 24 Hours (Table) 03/10/24 03/10/24 03/11/24 Range/Units 16:42 19:49 06:09 POC Glucose (mg/dL) 167 H 157 H 145 H (70-110) mg/dL 03/11/24 Range/Units 11:37 POC Glucose (mg/dL) 137 H (70-110) mg/dL Microbiology - Last 24 Hours (Table) 03/09/24 10:08 Urine Culture - Preliminary Urine,Voided Gram Neg Bacilli Assessment and Plan (1) Urinary tract infection Current Visit: Yes Status: Acute Code(s): N39.0 - URINARY TRACT INFECTION, SITE NOT SPECIFIED SNOMED Code(s): 61247649 Plan: 1patient presented to hospital mental status changes likely multifactorial patient did have multiple bug bites to the lower extremity however those are drying out with no evidence of any active cellulitis at the same time the patie nt did have a chest x-ray with bibasilar infiltrate more likely representing atelectasis clinically not behaving as pneumonia in this patient with no fever or elevated white count 2-patient did have normal procalcitonin however she did have a positive UA 3-patient urine is growing gram-negative bacilli with ID sensitive pending patient is covered with Zosyn while waiting for the culture to finalize Dictation was produced using [employer] dictation software. please excuse any grammatical, word or spelling errors.
--- NOTE | 2024-03-12 09:31 | P.PN ---
Subjective Progress Note Date: 03/12/24 Principal diagnosis: Patient is a 78-year-old female with known hypertension, dyslipidemia, and A-fib who presented to the emergency department with altered mentation for the previous 2 weeks. Patient was recently being treated for urinary tract infection with Cipro and then nitrofurantoin. On arrival labs were remarkable for creatinine of 1.21 which appears to be at patient's baseline. She had mildly elevated bilirubin at 2.3, AST 65, and ALT of 60. Urinalysis was negative. Urine drug screen was positive for benzodiazepines. She underwent chest x-ray which showed cardiomegaly and COPD. She underwent CT head which demonstrated no acute intracranial process with remote left periventricular white matter changes consistent with small vessel ischemic disease. She was a dmitted and subsequently underwent liver ultrasound which demonstrated small right renal cyst. She was followed by neurology and GI. She underwent repeat head CT which again showed no acute process. She underwent EEG which demonstrated moderate to severe background slowing consistent with toxic m etabolic encephalopathy. She had carotid Dopplers performed which were nondiagnostic as patient was combative. She developed fluid overload and cardiology was subsequently consulted. It came to light that patient had history of dilated cardiomyopathy and with current ejection fraction 45 to 50%. GI was consulted and the patient had hepatitis serologies performed which were negative, and negative antimitochondrial antibody, and a normal alpha 1 antitrypsin and AFP. B12 and folate were normal. TSH was elevated at 14.9 and hemoglobin A1c was elevated at 8 consistent with new onset diabetes. She developed worsening JANNETH which was felt to be due to cardiorenal syndrome. And nephrology was consulted. Remains confused, no reported vomiting, no reported diarrhea. Sleepy Objective - Vital Signs Vital signs: Vital Signs Temp 97.8 F 03/12/24 08:00 Pulse 101 H 03/12/24 08:00 Resp 20 03/12/24 08:00 BP 125/73 03/12/24 08:00 Pulse Ox 98 03/12/24 09:19 FiO2 Intake & Output 03/11/24 03/12/24 03/12/24 18:59 06:59 18:59 Intake Total 99.25 302.75 0 Output Total 775 425 125 Balance -675.75 -122.25 -125 Intake: Intake, IV Titration 99.25 302.75 Amount Diltiazem 125 mg In 99.25 231.25 Sodium Chloride 0.9% 100 ml @ 15 MG/HR 15 mls/hr IV .Q8H20M [facility] Rx#: [id number] Heparin Sod,Pork in 0.45% 71.5 NaCl 25,000 unit In 0.45 % NaCl 1 250ml.bag @ 10. 46 UNITS/KG/HR 10 mls/hr IV .Q24H [facility] Rx#: [id number] Oral 0 0 Output: Urine 775 425 125 Other: Voiding Method Indwelling Catheter Indwelling Catheter Indwelling Catheter - Exam General: Nontoxic, no distress, appears at stated age Cardiovascular: S1S2 reg, no murmur Lungs: Coarse breath sounds bilateral, no rhonchi, no rales, no accessory muscle use Abdominal: Soft, nontender to palpation, no guarding Ext: No gross muscle atrophy, trace+ edema bilateral lower extremities, no contractures Neuro: CN II-XI grossly intact, no focal neuro deficits Psych: Partially oriented - Labs CBC & Chem 7: 03/11/24 12:29 03/11/24 12:29 Labs: Abnormal Lab Results - Last 24 Hours (Table) 03/11/24 03/11/24 03/11/24 Range/Units 11:37 12:29 12:29 Hct 49.9 H (34.0-46.0) % MCV 104.7 H (80.0-100.0) fL MCHC 30.2 L (31.0-37.0) g/dL RDW 17.9 H (11.5-15.5) % Neutrophils # 8.8 H (1.3-7.7) k/uL Lymphocytes # 0.7 L (1.0-4.8) k/uL Macrocytosis Marked A PT (10.0-12.5) sec INR (<1.2) APTT (22.0-30.0) sec Sodium 146 H (137-145) mmol/L Chloride 118 H (98-107) mmol/L Carbon Dioxide 21 L (22-30) mmol/L BUN 43 H (7-17) mg/dL Creatinine 2.33 H (0.52-1.04) mg/dL Glucose 143 H (74-99) mg/dL POC Glucose (mg/dL) 137 H (70-110) mg/dL Total Bilirubin 1.9 H (0.2-1.3) mg/dL AST 71 H (14-36) U/L ALT 85 H (4-34) U/L Alkaline Phosphatase 189 H (38-126) U/L Total Protein 4.7 L (6.3-8.2) g/dL Albumin 2.5 L (3.5-5.0) g/dL 03/11/24 03/11/24 03/11/24 Range/Units 15:20 16:22 20:04 Hct (34.0-46.0) % MCV (80.0-100.0) fL MCHC (31.0-37.0) g/dL RDW (11.5-15.5) % Neutrophils # (1.3-7.7) k/uL Lymphocytes # (1.0-4.8) k/uL Macrocytosis PT 15.3 H (10.0-12.5) sec INR 1.5 H (<1.2) APTT >200.0 H* >200.0 H* (22.0-30.0) sec Sodium (137-145) mmol/L Chloride (98-107) mmol/L Carbon Dioxide (22-30) mmol/L BUN (7-17) mg/dL Creatinine (0.52-1.04) mg/dL Glucose (74-99) mg/dL POC Glucose (mg/dL) 133 H (70-110) mg/dL Total Bilirubin (0.2-1.3) mg/dL AST (14-36) U/L ALT (4-34) U/L Alkaline Phosphatase (38-126) U/L Total Protein (6.3-8.2) g/dL Albumin (3.5-5.0) g/dL 03/11/24 03/12/24 Range/Units 20:18 06:11 Hct (34.0-46.0) % MCV (80.0-100.0) fL MCHC (31.0-37.0) g/dL RDW (11.5-15.5) % Neutrophils # (1.3-7.7) k/uL Lymphocytes # (1.0-4.8) k/uL Macrocytosis PT (10.0-12.5) sec INR (<1.2) APTT (22.0-30.0) sec Sodium (137-145) mmol/L Chloride (98-107) mmol/L Carbon Dioxide (22-30) mmol/L BUN (7-17) mg/dL Creatinine (0.52-1.04) mg/dL Glucose (74-99) mg/dL POC Glucose (mg/dL) 152 H 156 H (70-110) mg/dL Total Bilirubin (0.2-1.3) mg/dL AST (14-36) U/L ALT (4-34) U/L Alkaline Phosphatase (38-126) U/L Total Protein (6.3-8.2) g/dL Albumin (3.5-5.0) g/dL Microbiology - Last 24 Hours (Table) 03/06/24 17:21 Blood Culture - Final Blood 03/06/24 17:07 Blood Culture - Final Blood 03/09/24 10:08 Urine Culture - Final Urine,Voided Escherichia coli Assessment and Plan Plan: Acute encephalopathy with history of underlying dementia, undetermined etiology Hypothyroidism -Possible multifocal etiologies including recent ciprofloxacin use, benzodiazepine use, under treated hypothyroidism, CVA -TSH is mildly elevated, levothyroxine increased to 75 mcg this hospital stay -Neurology following -Infectious disease: Low clinical suspicion for pneumonia or cellulitis -Patient unable to follow instructions for MRI brain -Stay off oral benzos much as possible. Patient has not been receiving any benzos since September 2023 decrease to 12.5 daily during this admission -Previous head CT negative for any acute process, EEG consistent with toxic metabolic encephalopathy -UA is negative, ammonia negative -YANET pending -syphillus antibody negative Continue supportive care, continue to monitor. Acute hypoxic respiratory failure Acute on chronic systolic congestive heart failure with ejection fraction 45 to 50% Persistent atrial fibrillation Hypertension -Continue to wean oxygen -Cardiology note reviewed: On metoprolol 150 twice daily, also started on Cardiz em 30 3 times daily however, patient unable to take oral medications at the moment -Eliquis 5 mg twice daily, Plavix 75 mg daily Persistent atrial fibrillation with RVR: Cardiology on board Switch to heparin drip On Cardizem drip. Acute on chronic congestive heart failure systolic ejection fraction 25% but now up to 45 to 50%. Cardiology following. Transaminitis associated with hyperbilirubinemia, stable Possibly related to ciprofloxacin use versus hepatic congestion secondary to acute exacerbation of CHF -Patient had been following by GI. They recommend continuing to hold Lipitor. Follow-up with GI as an outpatient basis no further workup needed at this time. Acute kidney injury chronic kidney disease stage III - improving - nephrolopgy recs reviewed: Continue IV Lasix 40 mg, monitor renal function and electrolytes, repeat chest x-ray tomorrow, as needed hydralazine added -Off of Aldactone and Cozaar Creatinine stable at 1.6-1.7 Newly discovered diabetes -Continue with sliding scale insulin -Follow blood sugars -Will need oral medications on discharge to help with diabetes management but given liver and kidney dysfunction will defer decision of this until later time. Bedbug infestation on arrival -Status post decontamination Imaging: Renal US with right renal cyst CT head pending, will be reviewed when available DVT prophylaxis: armani Anticipated discharge date: pending clinical course
--- NOTE | 2024-03-12 11:30 | P.PN ---
Subjective Patient is seen in follow-up for acute kidney injury. Creatinine 2.33 yesterday. On IV Lasix. Nonoliguric. On Cardizem drip for A-fib with RVR. Has Navarrete catheter. Nonoliguric. Not a reliable historian. present at bedside. Vital signs stable. General: No acute distress. Lethargic. HEENT: Head exam is unremarkable. On nasal cannula. LUNGS: No audible rhonchi or wheezes. HEART: Irregular rate and rhythm. ABDOMEN: Nontender. EXTREMITITES: No edema. Objective - Vital Signs Vital signs: Vital Signs Temp 97.8 F 03/12/24 08:00 Pulse 101 H 03/12/24 08:00 Resp 20 03/12/24 08:00 BP 125/73 03/12/24 08:00 Pulse Ox 98 03/12/24 09:19 FiO2 Intake & Output 03/11/24 03/12/24 03/12/24 18:59 06:59 18:59 Intake Total 99.25 302.75 0 Output Total 775 425 125 Balance -675.75 -122.25 -125 Intake: Intake, IV Titration 99.25 302.75 Amount Diltiazem 125 mg In 99.25 231.25 Sodium Chloride 0.9% 100 ml @ 15 MG/HR 15 mls/hr IV .Q8H20M [facility] Rx#: [id number] Heparin Sod,Pork in 0.45% 71.5 NaCl 25,000 unit In 0.45 % NaCl 1 250ml.bag @ 10. 46 UNITS/KG/HR 10 mls/hr IV .Q24H [facility] Rx#: [id number] Oral 0 0 Output: Urine 775 425 125 Other: Voiding Method Indwelling Catheter Indwelling Catheter Indwelling Catheter - Labs CBC & Chem 7: 03/11/24 12:29 03/11/24 12:29 Labs: Abnormal Lab Results - Last 24 Hours (Table) 03/11/24 03/11/24 03/11/24 Range/Units 11:37 12:29 12:29 Hct 49.9 H (34.0-46.0) % MCV 104.7 H (80.0-100.0) fL MCHC 30.2 L (31.0-37.0) g/dL RDW 17.9 H (11.5-15.5) % Neutrophils # 8.8 H (1.3-7.7) k/uL Lymphocytes # 0.7 L (1.0-4.8) k/uL Macrocytosis Marked A PT (10.0-12.5) sec INR (<1.2) APTT (22.0-30.0) sec Sodium 146 H (137-145) mmol/L Chloride 118 H (98-107) mmol/L Carbon Dioxide 21 L (22-30) mmol/L BUN 43 H (7-17) mg/dL Creatinine 2.33 H (0.52-1.04) mg/dL Glucose 143 H (74-99) mg/dL POC Glucose (mg/dL) 137 H (70-110) mg/dL Total Bilirubin 1.9 H (0.2-1.3) mg/dL AST 71 H (14-36) U/L ALT 85 H (4-34) U/L Alkaline Phosphatase 189 H (38-126) U/L Total Protein 4.7 L (6.3-8.2) g/dL Albumin 2.5 L (3.5-5.0) g/dL 03/11/24 03/11/24 03/11/24 Range/Units 15:20 16:22 20:04 Hct (34.0-46.0) % MCV (80.0-100.0) fL MCHC (31.0-37.0) g/dL RDW (11.5-15.5) % Neutrophils # (1.3-7.7) k/uL Lymphocytes # (1.0-4.8) k/uL Macrocytosis PT 15.3 H (10.0-12.5) sec INR 1.5 H (<1.2) APTT >200.0 H* >200.0 H* (22.0-30.0) sec Sodium (137-145) mmol/L Chloride (98-107) mmol/L Carbon Dioxide (22-30) mmol/L BUN (7-17) mg/dL Creatinine (0.52-1.04) mg/dL Glucose (74-99) mg/dL POC Glucose (mg/dL) 133 H (70-110) mg/dL Total Bilirubin (0.2-1.3) mg/dL AST (14-36) U/L ALT (4-34) U/L Alkaline Phosphatase (38-126) U/L Total Protein (6.3-8.2) g/dL Albumin (3.5-5.0) g/dL 03/11/24 03/12/24 Range/Units 20:18 06:11 Hct (34.0-46.0) % MCV (80.0-100.0) fL MCHC (31.0-37.0) g/dL RDW (11.5-15.5) % Neutrophils # (1.3-7.7) k/uL Lymphocytes # (1.0-4.8) k/uL Macrocytosis PT (10.0-12.5) sec INR (<1.2) APTT (22.0-30.0) sec Sodium (137-145) mmol/L Chloride (98-107) mmol/L Carbon Dioxide (22-30) mmol/L BUN (7-17) mg/dL Creatinine (0.52-1.04) mg/dL Glucose (74-99) mg/dL POC Glucose (mg/dL) 152 H 156 H (70-110) mg/dL Total Bilirubin (0.2-1.3) mg/dL AST (14-36) U/L ALT (4-34) U/L Alkaline Phosphatase (38-126) U/L Total Protein (6.3-8.2) g/dL Albumin (3.5-5.0) g/dL Microbiology - Last 24 Hours (Table) 03/06/24 17:21 Blood Culture - Final Blood 03/06/24 17:07 Blood Culture - Final Blood 03/09/24 10:08 Urine Culture - Final Urine,Voided Escherichia coli Assessment and Plan Plan: Assessment: 1. Acute kidney injury secondary to ATN secondary to cardiorenal syndrome and hemodynamic instability. Creatinine 2.33 yesterday. No hydronephrosis noted on kidney ultrasound. Both kidneys atrophic. 2. Chronic kidney disease stage IIIa with baseline creatinine 1.1-1.2 in October and November 2023. 3. A-fib with RVR. On Cardizem drip. Cardiology following. 4. Diabetes mellitus. 5. Acute on chronic systolic CHF with ejection fraction of 25 to 30% with mild to moderate mitral and tricuspid regurgitation and moderate pulmonary hypertension noted on echocardiogram done October 2023. 6. Volume overload. On IV Lasix. 7. Hypothyroidism maintained on Synthroid. 8. Mild hypernatremia from lack of oral water intake. On D5W. 9. E. coli UTI on antibiotics. Plan: Maintain D5W. Maintain IV Lasix for now. Encouraged oral intake. Avoid nephrotoxins. Continue to monitor renal function and urine output. Morning labs pending.
[2024-03-12 11:49] LABS: Glucose,Whole Blood 134 mg/dL (70-110)
[2024-03-12 12:12] LABS: INR 1.2 (<1.2); Partial Thromboplastin Time 38.5 sec (22.0-30.0); Prothrombin Time 12.5 sec (10.0-12.5)
[2024-03-12 12:36] LABS: Anisocytosis Slight; Basophils % (A) 0 %; Eosinophils # (A) 0.1 k/uL (0-0.7); Eosinophils % (A) 1 %; HCT 47.7 % (34.0-46.0); HGB 14.6 gm/dL (11.4-16.0); Hypochromasia Moderate; Lymphocytes # (A) 0.8 k/uL (1.0-4.8); Lymphocytes % (A) 8 %; MCH 31.6 pg (25.0-35.0); MCHC 30.5 g/dL (31.0-37.0); MCV 103.7 fL (80.0-100.0); Macrocytosis Moderate; Mean Platelet Volume 9.5; Monocytes # (A) 0.6 k/uL (0-1.0); Monocytes % (A) 6 %; Neutrophils # (A) 8.5 k/uL (1.3-7.7); Neutrophils % (A) 84 %; Platelet Count 255 k/uL (150-450); RDW 17.8 % (11.5-15.5); WBC 10.1 k/uL (3.8-10.6)
[2024-03-12 13:03] LABS: ALT 74 U/L (4-34); African American GFR (CKD) 21 (>60 ml/min/1.73 sqM); Albumin 2.6 g/dL (3.5-5.0); Anion Gap 8 mmol/L; Blood Urea Nitrogen 50 mg/dL (7-17); Calcium 8.8 mg/dL (8.4-10.2); Carbon Dioxide 20 mmol/L (22-30); Chloride 118 mmol/L (98-107); Glucose 144 mg/dL (74-99); Non-African American GFR(CKD) 18 (>60 ml/min/1.73 sqM); Sodium 146 mmol/L (137-145); Total Bilirubin 1.7 mg/dL (0.2-1.3)
[2024-03-12 13:10] LABS: AST 60 U/L (14-36); Alkaline Phosphatase 162 U/L (38-126); Magnesium 2.1 mg/dL (1.6-2.3); Potassium 4.7 mmol/L (3.5-5.1)
--- NOTE | 2024-03-12 13:34 | P.PN ---
Subjective Progress Note Date: 03/12/24 HISTORY OF PRESENT ILLNESS: This is a 78-year-old female patient of Dr. Garibay with past medical history of atrial tachycardia with RVR, persistent atrial fibrillation, dilated cardiomyopathy with a EF of 25%, coronary artery disease status post stenting, moderate mitral regurgitation. We have been asked to evaluate the patient for A-fib with RVR. Patient was brought into the hospital on 03/04 for altered mental status and has been seen and followed by neurology, GI for elevated liver function test. This morning, patient is minimally responsive to verbal stimuli. She briefly opens her eyes only. EKG A-fib with moderate ventricular rate, telemetry atrial fibrillation with moderately controlled ventricular rate Chest x-ray: Performed 03/07 reveals mild bibasilar infiltrates correlate for pne umonia and atelectasis. Carotid duplex nondiagnostic study WBC 8, hemoglobin 13.2. Sodium 138, potassium 4.3, BUN 25 and creatinine 1.53. A1c 8. Elevated liver function test. TSH 14.9 with free T4 normal at 1.76. Hepatitis panel negative. Urine drug screen positive for benzodiazepines. Home cardiac medications: Eliquis 5 mg twice daily, atorvastatin 40 mg at bedtime, Plavix 75 mg daily, Lasix 40 mg daily, losartan 25 mg at bedtime, Toprol-XL 100 mg daily, Nitrostat as needed, Aldactone 25 mg daily, patient also on levothyroxine 50 mcg daily. Echocardiogram performed on 03/01/2024 reveals EF of 45 to 50%, moderate to severe mitral regurgitation, moderate tricuspid regurgitation, moderately increased pulmonary artery systolic pressure of 49 mmHg. Physiologic pulmonic regurgitation. Electrocardioversion 11/29/2023 for persistent atrial fibrillation and associated cardiomyopathy Electrocardioversion 10/10/2023 for persistent atrial fibrillation Cardiac catheterization 11/07/[address] Ulrich revealed 80% diffuse calcified mid LAD disease, TIMI3 flow, mild CAD in the left circumflex and RCA. Normal left-sided filling pressures. LVEF 25% by echocardiogram. PCI 11/07/[address] Moreira with stenting of the proximal LAD 03/09/2024 Patient is a 78-year-old female who presented to hospital with status A-fib RVR. Patient remains relatively unresponsive today, unable to answer questions or respond to questions. She continues to moan incoherently. Unknown etiology for patient's altered mental status. 03/10/2024 Patient examined this morning at the bedside. Patient's family is present. Patient remains lethargic and unable to answer any questions. Patient remains on IV Lasix 40 mg every 12 hours per primary medicine. Patient remains in atrial fibrillation with a heart rate in the 120s. She is currently on metoprolol 150 mg twice a day. Blood pressure has also been elevated with a systolic in the 160s and a diastolic ranging between [id number]. 03/11 Yesterday, patient went into [facility] with RVR and was transferred back to the cardiac stepdown unit. She was started on a Cardizem drip currently at 15 mg/h. Patient is unable to swallow and take her medications. She continues to have significant mental status changes of unclear etiology. She is followed by neurology and infectious disease. Heart rate is currently around the 1 teens to 120s. She is not on/able to take oral anticoagulation. Blood pressure 112/70, pulse ox 97% on 2 L nasal cannula. 03/12 Patient remains in atrial fibrillation with rate not well-controlled. She is maintained on Cardizem drip at 15 mg/h as well as heparin drip. At 15 mg/h as well as heparin drip. Family states that patient did open her eyes today and took a little bit of water off a sponge. Blood pressure 124/64, heart rate 101- 124, pulse ox 94% on 2 L. Repeat blood work reveals sodium 146, CO2 20, BUN 50 creatinine 2.49. AST 60, ALT 74, alkaline phosphatase 162. PHYSICAL EXAM: VITAL SIGNS: Reviewed. GENERAL: Well-developed in no acute distress. NECK: Supple. No JVD or thyromegaly LUNGS: Re which is an improvement to her mental status.spirations even and un labored. Lungs essentially clear to auscultation bilaterally. HEART: Mild tachycardic. Irregular rate and rhythm. S1 and S2 heard. EXTREMITIES: No clubbing or cyanosis. Peripheral pulses intact. No lower extremity edema ASSESSMENT: Altered mental status of unclear etiology Persistent atrial fibrillation with RVR Acute on chronic heart failure with mildly reduced EF, 45-50, previously reduced EF of 25% Transaminitis Acute kidney injury History of atrial tachycardia with RVR Dilated cardiomyopathy with EF of 25% in the past, now 45 to 50% Coronary artery disease status post stenting Moderate mitral regurgitation and moderate tricuspid regurgitation Abnormal TSH PLAN: Discontinue Cardizem drip at 15 mg/h Start patient on amiodarone bolus followed by drip Continue patient on heparin drip until she is able to take oral medications Further recommendations pending patient course Nurse practitioner note has been reviewed by physician. Signing provider agrees with the documented findings, assessment, and plan of care documented by [employer] as a scribe. Objective - Vital Signs Vital signs: Vital Signs Temp 97.7 F 03/12/24 11:29 Pulse 105 H 03/12/24 11:29 Resp 18 03/12/24 11:29 BP 124/64 03/12/24 11:29 Pulse Ox 94 L 03/12/24 11:29 FiO2 Intake & Output 03/11/24 03/12/24 03/12/24 18:59 06:59 18:59 Intake Total 99.25 302.75 0 Output Total 775 425 450 Balance -675.75 -122.25 -450 Intake: Intake, IV Titration 99.25 302.75 Amount Diltiazem 125 mg In 99.25 231.25 Sodium Chloride 0.9% 100 ml @ 15 MG/HR 15 mls/hr IV .Q8H20M [facility] Rx#: [id number] Heparin Sod,Pork in 0.45% 71.5 NaCl 25,000 unit In 0.45 % NaCl 1 250ml.bag @ 10. 46 UNITS/KG/HR 10 mls/hr IV .Q24H [facility] Rx#: [id number] Oral 0 0 Output: Urine 775 425 450 Other: Voiding Method Indwelling Catheter Indwelling Catheter Indwelling Catheter - Labs CBC & Chem 7: 03/12/24 11:32 03/12/24 11:32 Labs: Abnormal Lab Results - Last 24 Hours (Table) 03/11/24 03/11/24 03/11/24 Range/Units 12:29 12:29 15:20 Hct 49.9 H (34.0-46.0) % MCV 104.7 H (80.0-100.0) fL MCHC 30.2 L (31.0-37.0) g/dL RDW 17.9 H (11.5-15.5) % Neutrophils # 8.8 H (1.3-7.7) k/uL Lymphocytes # 0.7 L (1.0-4.8) k/uL Macrocytosis Marked A PT 15.3 H (10.0-12.5) sec INR 1.5 H (<1.2) APTT >200.0 H* (22.0-30.0) sec Sodium 146 H (137-145) mmol/L Chloride 118 H (98-107) mmol/L Carbon Dioxide 21 L (22-30) mmol/L BUN 43 H (7-17) mg/dL Creatinine 2.33 H (0.52-1.04) mg/dL Glucose 143 H (74-99) mg/dL POC Glucose (mg/dL) (70-110) mg/dL Total Bilirubin 1.9 H (0.2-1.3) mg/dL AST 71 H (14-36) U/L ALT 85 H (4-34) U/L Alkaline Phosphatase 189 H (38-126) U/L Total Protein 4.7 L (6.3-8.2) g/dL Albumin 2.5 L (3.5-5.0) g/dL 03/11/24 03/11/24 03/11/24 Range/Units 16:22 20:04 20:18 Hct (34.0-46.0) % MCV (80.0-100.0) fL MCHC (31.0-37.0) g/dL RDW (11.5-15.5) % Neutrophils # (1.3-7.7) k/uL Lymphocytes # (1.0-4.8) k/uL Macrocytosis PT (10.0-12.5) sec INR (<1.2) APTT >200.0 H* (22.0-30.0) sec Sodium (137-145) mmol/L Chloride (98-107) mmol/L Carbon Dioxide (22-30) mmol/L BUN (7-17) mg/dL Creatinine (0.52-1.04) mg/dL Glucose (74-99) mg/dL POC Glucose (mg/dL) 133 H 152 H (70-110) mg/dL Total Bilirubin (0.2-1.3) mg/dL AST (14-36) U/L ALT (4-34) U/L Alkaline Phosphatase (38-126) U/L Total Protein (6.3-8.2) g/dL Albumin (3.5-5.0) g/dL 03/12/24 Range/Units 06:11 Hct (34.0-46.0) % MCV (80.0-100.0) fL MCHC (31.0-37.0) g/dL RDW (11.5-15.5) % Neutrophils # (1.3-7.7) k/uL Lymphocytes # (1.0-4.8) k/uL Macrocytosis PT (10.0-12.5) sec INR (<1.2) APTT (22.0-30.0) sec Sodium (137-145) mmol/L Chloride (98-107) mmol/L Carbon Dioxide (22-30) mmol/L BUN (7-17) mg/dL Creatinine (0.52-1.04) mg/dL Glucose (74-99) mg/dL POC Glucose (mg/dL) 156 H (70-110) mg/dL Total Bilirubin (0.2-1.3) mg/dL AST (14-36) U/L ALT (4-34) U/L Alkaline Phosphatase (38-126) U/L Total Protein (6.3-8.2) g/dL Albumin (3.5-5.0) g/dL Microbiology - Last 24 Hours (Table) 03/06/24 17:21 Blood Culture - Final Blood 03/06/24 17:07 Blood Culture - Final Blood 03/09/24 10:08 Urine Culture - Final Urine,Voided Escherichia coli
[2024-03-12] MEDS: AMIODARONE 360 MG in DEXTROSE 5% IN WATER 200 ML IV ONE (14:17)
[2024-03-12] MEDS: DEXTROSE 5% IN WATER 100 ML with AMIODARONE 150 MG IV ONE (14:17)
[2024-03-12 15:17] LABS: Crenated RBC Present; Poikilocytosis (M) Present
[2024-03-12 16:36] LABS: Glucose,Whole Blood 169 mg/dL (70-110)
--- NOTE | 2024-03-12 18:25 | P.PN ---
Subjective Progress Note Date: 03/12/24 I am following up with patient. Per patient's family members her son and other family members. It seems that the patient has acute urinary tract infection and she is having confusion and upper family members she is having some improvement today compared to other days. Was attempted to have MRI last week but she was too agitated restless she got medication to help her calm down but then she got more drowsy and the MRI was unable to be completed. Objective - Vital Signs Vital signs: Vital Signs Temp 97.6 F 03/12/24 15:56 Pulse 103 H 03/12/24 15:56 Resp 17 03/12/24 15:56 BP 120/70 03/12/24 15:56 Pulse Ox 97 03/12/24 15:56 FiO2 Intake & Output 03/11/24 03/12/24 03/12/24 18:59 06:59 18:59 Intake Total 99.25 302.75 191.422 Output Total 775 425 875 Balance -675.75 -122.25 -683.578 Weight 95.6 kg Intake: Intake, IV Titration 99.25 302.75 191.422 Amount Diltiazem 125 mg In 99.25 231.25 97.25 Sodium Chloride 0.9% 100 ml @ 15 MG/HR 15 mls/hr IV .Q8H20M [facility] Rx#: [id number] Heparin Sod,Pork in 0.45% 71.5 94.172 NaCl 25,000 unit In 0.45 % NaCl 1 250ml.bag @ 10. 46 UNITS/KG/HR 10 mls/hr IV .Q24H [facility] Rx#: [id number] Oral 0 0 Output: Urine 775 425 875 Other: Voiding Method Indwelling Catheter Indwelling Catheter Indwelling Catheter - Exam General: Lying in bed and does not appear in acute distress. HENT: Supple neck Neuro: Limited. Is severely drowsy but is briefly awakeable to verbal stimuli. She is able to follow few simple commands (showing thumbs up, wiggling toes, tracking right and left briefly to commands). She is not verbalizing. No facial droop appreciated. Motor: Unable to assess strength. Decrease tone throughout. - Labs CBC & Chem 7: 03/12/24 11:32 03/12/24 11:32 Labs: Abnormal Lab Results - Last 24 Hours (Table) 03/11/24 03/11/24 03/12/24 Range/Units 20:04 20:18 06:11 Hct (34.0-46.0) % MCV (80.0-100.0) fL MCHC (31.0-37.0) g/dL RDW (11.5-15.5) % Neutrophils # (1.3-7.7) k/uL Lymphocytes # (1.0-4.8) k/uL INR (<1.2) APTT >200.0 H* (22.0-30.0) sec Sodium (137-145) mmol/L Chloride (98-107) mmol/L Carbon Dioxide (22-30) mmol/L BUN (7-17) mg/dL Creatinine (0.52-1.04) mg/dL Glucose (74-99) mg/dL POC Glucose (mg/dL) 152 H 156 H (70-110) mg/dL Total Bilirubin (0.2-1.3) mg/dL AST (14-36) U/L ALT (4-34) U/L Alkaline Phosphatase (38-126) U/L Total Protein (6.3-8.2) g/dL Albumin (3.5-5.0) g/dL 03/12/24 03/12/24 03/12/24 Range/Units 11:32 11:32 11:32 Hct 47.7 H (34.0-46.0) % MCV 103.7 H (80.0-100.0) fL MCHC 30.5 L (31.0-37.0) g/dL RDW 17.8 H (11.5-15.5) % Neutrophils # 8.5 H (1.3-7.7) k/uL Lymphocytes # 0.8 L (1.0-4.8) k/uL INR 1.2 H (<1.2) APTT 38.5 H (22.0-30.0) sec Sodium 146 H (137-145) mmol/L Chloride 118 H (98-107) mmol/L Carbon Dioxide 20 L (22-30) mmol/L BUN 50 H (7-17) mg/dL Creatinine 2.49 H (0.52-1.04) mg/dL Glucose 144 H (74-99) mg/dL POC Glucose (mg/dL) (70-110) mg/dL Total Bilirubin 1.7 H (0.2-1.3) mg/dL AST 60 H (14-36) U/L ALT 74 H (4-34) U/L Alkaline Phosphatase 162 H (38-126) U/L Total Protein 5.0 L (6.3-8.2) g/dL Albumin 2.6 L (3.5-5.0) g/dL 03/12/24 03/12/24 Range/Units 11:40 16:30 Hct (34.0-46.0) % MCV (80.0-100.0) fL MCHC (31.0-37.0) g/dL RDW (11.5-15.5) % Neutrophils # (1.3-7.7) k/uL Lymphocytes # (1.0-4.8) k/uL INR (<1.2) APTT (22.0-30.0) sec Sodium (137-145) mmol/L Chloride (98-107) mmol/L Carbon Dioxide (22-30) mmol/L BUN (7-17) mg/dL Creatinine (0.52-1.04) mg/dL Glucose (74-99) mg/dL POC Glucose (mg/dL) 134 H 169 H (70-110) mg/dL Total Bilirubin (0.2-1.3) mg/dL AST (14-36) U/L ALT (4-34) U/L Alkaline Phosphatase (38-126) U/L Total Protein (6.3-8.2) g/dL Albumin (3.5-5.0) g/dL Microbiology - Last 24 Hours (Table) 03/06/24 17:21 Blood Culture - Final Blood 03/06/24 17:07 Blood Culture - Final Blood 03/09/24 10:08 Urine Culture - Final Urine,Voided Escherichia coli Assessment and Plan Assessment: * Altered mental status, likely due to toxic metabolic encephalopathy. Patient diagnosed with acute UTI. Patient is afebrile and no leukocytosis---minimal improvement in mentation and followed few simple commands. 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 * Elevated hemoglobin A1c 8.0, probable with new onset diabetes. * Acute kidney injury, today further better * Elevated liver enzymes, today is slightly worse * Congestive heart failure with EF 25% * COPD * Hypothyroidism, getting worse * Poor social condition with bedbugs infestation. Status post decontamination Plan: * Repeat CT head on 03/10/2024, showed no acute process. * The family would like to hold off MRI and if not improving they will consider attempting MRI Brain again. * Patient now diagnosed with acute UTI, started on Zosyn. ID following. * GI is on board. * Patient has multiple scratches on the body. Uncertain if there is some cellulitis. Infectious disease on consult. * Carotid Doppler could not be performed as patient was not cooperative. * EEG was performed, which was abnormal due to background slowing of moderate to severe degree. This is suggestive of generalized cerebral dysfunction as can be seen with toxic metabolic encephalopathy or related to diffuse structural brain abnormality. Clinical correlation is recommended. No epileptiform activity was seen. * B12 1659, folate 30.9, MMA, B6, pending. Ammonia is normal 16. * Hemoglobin A1c 8.0, consistent with new onset diabetes. Patient does have history of borderline diabetes in the past. Will defer to IM. * Patient has atrial fibrillation, currently on Eliquis 5 mg twice daily and Plavix. These will be continued. * Patient's thyroid functions are abnormal. We will defer to IM. * Treatment of other medical conditions as per IM. The plan is discussed with patient's family member who is at bedside and N.P. from primary team. Time with Patient: Less than 30
[2024-03-12 20:07] LABS: Glucose,Whole Blood 186 mg/dL (70-110)
[2024-03-12] MEDS: AMIODARONE 450 MG in DEXTROSE 5% IN WATER 250 ML IV SCH (20:34)
[2024-03-13 05:43] LABS: Glucose,Whole Blood 216 mg/dL (70-110)
[2024-03-13 08:04] LABS: Anisocytosis Slight; Basophils % (A) 1 %; Eosinophils # (A) 0.2 k/uL (0-0.7); Eosinophils % (A) 2 %; HCT 52.2 % (34.0-46.0); HGB 15.1 gm/dL (11.4-16.0); Hypochromasia Marked; Lymphocytes # (A) 0.7 k/uL (1.0-4.8); Lymphocytes % (A) 8 %; MCHC 28.8 g/dL (31.0-37.0); MCV 107.6 fL (80.0-100.0); Macrocytosis Marked; Mean Platelet Volume 8.4; Monocytes # (A) 0.5 k/uL (0-1.0); Monocytes % (A) 6 %; Neutrophils # (A) 7.2 k/uL (1.3-7.7); Neutrophils % (A) 83 %; Platelet Count 229 k/uL (150-450); RBC 4.85 m/uL (3.80-5.40); RDW 17.3 % (11.5-15.5); WBC 8.8 k/uL (3.8-10.6)
[2024-03-13 09:12] LABS: ALT 59 U/L (4-34); African American GFR (CKD) 23 (>60 ml/min/1.73 sqM); Albumin 2.4 g/dL (3.5-5.0); Anion Gap 4 mmol/L; Blood Urea Nitrogen 46 mg/dL (7-17); Calcium 8.4 mg/dL (8.4-10.2); Carbon Dioxide 24 mmol/L (22-30); Chloride 116 mmol/L (98-107); Glucose 198 mg/dL (74-99); Non-African American GFR(CKD) 20 (>60 ml/min/1.73 sqM); Sodium 144 mmol/L (137-145); Total Bilirubin 1.4 mg/dL (0.2-1.3); Total Protein 4.7 g/dL (6.3-8.2)
[2024-03-13 09:22] LABS: AST 57 U/L (14-36); Alkaline Phosphatase 144 U/L (38-126); Potassium 4.1 mmol/L (3.5-5.1)
--- NOTE | 2024-03-13 10:35 | P.PN ---
Subjective Progress Note Date: 03/13/24 Principal diagnosis: Patient is a 78-year-old female with known hypertension, dyslipidemia, and A-fib who presented to the emergency department with altered mentation for the previous 2 weeks. Patient was recently being treated for urinary tract infection with Cipro and then nitrofurantoin. On arrival labs were remarkable for creatinine of 1.21 which appears to be at patient's baseline. She had mildly elevated bilirubin at 2.3, AST 65, and ALT of 60. Urinalysis was negative. Urine drug screen was positive for benzodiazepines. She underwent chest x-ray which showed cardiomegaly and COPD. She underwent CT head which demonstrated no acute intracranial process with remote left periventricular white matter changes consistent with small vessel ischemic disease. She was a dmitted and subsequently underwent liver ultrasound which demonstrated small right renal cyst. She was followed by neurology and GI. She underwent repeat head CT which again showed no acute process. She underwent EEG which demonstrated moderate to severe background slowing consistent with toxic m etabolic encephalopathy. She had carotid Dopplers performed which were nondiagnostic as patient was combative. She developed fluid overload and cardiology was subsequently consulted. It came to light that patient had history of dilated cardiomyopathy and with current ejection fraction 45 to 50%. GI was consulted and the patient had hepatitis serologies performed which were negative, and negative antimitochondrial antibody, and a normal alpha 1 antitrypsin and AFP. B12 and folate were normal. TSH was elevated at 14.9 and hemoglobin A1c was elevated at 8 consistent with new onset diabetes. She developed worsening JANNETH which was felt to be due to cardiorenal syndrome. And nephrology was consulted. , Does not appear to be in distress. Patient's family friend at bedside. Objective - Vital Signs Vital signs: Vital Signs Temp 97.7 F 03/12/24 20:00 Pulse 100 03/13/24 03:50 Resp 16 03/13/24 03:50 BP 119/75 03/13/24 03:50 Pulse Ox 98 03/13/24 03:50 FiO2 Intake & Output 03/12/24 03/13/24 03/13/24 18:59 06:59 18:59 Intake Total 191.422 68.883 Output Total 875 500 Balance -683.578 -431.117 Weight 95.6 kg 92.5 kg Intake: Intake, IV Titration 191.422 68.883 Amount Diltiazem 125 mg In 97.25 Sodium Chloride 0.9% 100 ml @ 15 MG/HR 15 mls/hr IV .Q8H20M [facility] Rx#: [id number] Heparin Sod,Pork in 0.45% 94.172 68.883 NaCl 25,000 unit In 0.45 % NaCl 1 250ml.bag @ 10. 46 UNITS/KG/HR 10 mls/hr IV .Q24H [facility] Rx#: [id number] Oral 0 Output: Urine 875 500 Other: Voiding Method Indwelling Catheter Indwelling Catheter # Bowel Movements 1 - Exam General: Nontoxic, no distress, appears at stated age Cardiovascular: S1S2 reg, no murmur Lungs: Coarse breath sounds bilateral, no rhonchi, no rales, no accessory muscle use Abdominal: Soft, nontender to palpation, no guarding Ext: No gross muscle atrophy, trace+ edema bilateral lower extremities, no contractures Neuro: CN II-XI grossly intact, no focal neuro deficits Psych: Partially oriented - Labs CBC & Chem 7: 03/13/24 07:41 03/13/24 07:41 Labs: Abnormal Lab Results - Last 24 Hours (Table) 03/12/24 03/12/24 03/12/24 Range/Units 11:32 11:32 11:32 Hct 47.7 H (34.0-46.0) % MCV 103.7 H (80.0-100.0) fL MCHC 30.5 L (31.0-37.0) g/dL RDW 17.8 H (11.5-15.5) % Neutrophils # 8.5 H (1.3-7.7) k/uL Lymphocytes # 0.8 L (1.0-4.8) k/uL Macrocytosis INR 1.2 H (<1.2) APTT 38.5 H (22.0-30.0) sec Sodium 146 H (137-145) mmol/L Chloride 118 H (98-107) mmol/L Carbon Dioxide 20 L (22-30) mmol/L BUN 50 H (7-17) mg/dL Creatinine 2.49 H (0.52-1.04) mg/dL Glucose 144 H (74-99) mg/dL POC Glucose (mg/dL) (70-110) mg/dL Total Bilirubin 1.7 H (0.2-1.3) mg/dL AST 60 H (14-36) U/L ALT 74 H (4-34) U/L Alkaline Phosphatase 162 H (38-126) U/L Total Protein 5.0 L (6.3-8.2) g/dL Albumin 2.6 L (3.5-5.0) g/dL 03/12/24 03/12/24 03/12/24 Range/Units 11:40 16:30 19:58 Hct (34.0-46.0) % MCV (80.0-100.0) fL MCHC (31.0-37.0) g/dL RDW (11.5-15.5) % Neutrophils # (1.3-7.7) k/uL Lymphocytes # (1.0-4.8) k/uL Macrocytosis INR (<1.2) APTT 54.4 H (22.0-30.0) sec Sodium (137-145) mmol/L Chloride (98-107) mmol/L Carbon Dioxide (22-30) mmol/L BUN (7-17) mg/dL Creatinine (0.52-1.04) mg/dL Glucose (74-99) mg/dL POC Glucose (mg/dL) 134 H 169 H (70-110) mg/dL Total Bilirubin (0.2-1.3) mg/dL AST (14-36) U/L ALT (4-34) U/L Alkaline Phosphatase (38-126) U/L Total Protein (6.3-8.2) g/dL Albumin (3.5-5.0) g/dL 03/12/24 03/13/24 03/13/24 Range/Units 20:06 05:41 07:11 Hct (34.0-46.0) % MCV (80.0-100.0) fL MCHC (31.0-37.0) g/dL RDW (11.5-15.5) % Neutrophils # (1.3-7.7) k/uL Lymphocytes # (1.0-4.8) k/uL Macrocytosis INR (<1.2) APTT 73.1 H (22.0-30.0) sec Sodium (137-145) mmol/L Chloride (98-107) mmol/L Carbon Dioxide (22-30) mmol/L BUN (7-17) mg/dL Creatinine (0.52-1.04) mg/dL Glucose (74-99) mg/dL POC Glucose (mg/dL) 186 H 216 H (70-110) mg/dL Total Bilirubin (0.2-1.3) mg/dL AST (14-36) U/L ALT (4-34) U/L Alkaline Phosphatase (38-126) U/L Total Protein (6.3-8.2) g/dL Albumin (3.5-5.0) g/dL 03/13/24 03/13/24 Range/Units 07:41 07:41 Hct 52.2 H (34.0-46.0) % MCV 107.6 H (80.0-100.0) fL MCHC 28.8 L (31.0-37.0) g/dL RDW 17.3 H (11.5-15.5) % Neutrophils # (1.3-7.7) k/uL Lymphocytes # 0.7 L (1.0-4.8) k/uL Macrocytosis Marked A INR (<1.2) APTT (22.0-30.0) sec Sodium (137-145) mmol/L Chloride 116 H (98-107) mmol/L Carbon Dioxide (22-30) mmol/L BUN 46 H (7-17) mg/dL Creatinine 2.26 H (0.52-1.04) mg/dL Glucose 198 H (74-99) mg/dL POC Glucose (mg/dL) (70-110) mg/dL Total Bilirubin 1.4 H (0.2-1.3) mg/dL AST 57 H (14-36) U/L ALT 59 H (4-34) U/L Alkaline Phosphatase 144 H (38-126) U/L Total Protein 4.7 L (6.3-8.2) g/dL Albumin 2.4 L (3.5-5.0) g/dL Assessment and Plan Plan: Acute encephalopathy with history of underlying dementia, undetermined etiology Hypothyroidism -Possible multifocal etiologies including recent ciprofloxacin use, benzodiazepine use, under treated hypothyroidism, CVA -TSH is mildly elevated, levothyroxine increased to 75 mcg this hospital stay -Neurology following -Infectious disease: Low clinical suspicion for pneumonia or cellulitis -Patient unable to follow instructions for MRI brain -Stay off oral benzos much as possible. Patient has not been receiving any benzos since September 2023 decrease to 12.5 daily during this admission -Previous head CT negative for any acute process, EEG consistent with toxic metabolic encephalopathy -UA is negative, ammonia negative -YANET pending -syphillus antibody negative Continue supportive care, continue to monitor. Neurology on board, discussed possible MRI, family want to hold off for now. Acute hypoxic respiratory failure Acute on chronic systolic congestive heart failure with ejection fraction 45 to 50% Persistent atrial fibrillation Hypertension -Continue to wean oxygen -Cardiology note reviewed: On metoprolol 150 twice daily, also started on Cardizem 30 3 times daily however, patient unable to take oral medications at the moment -Eliquis 5 mg twice daily, Plavix 75 mg daily Persistent atrial fibrillation with RVR: Cardiology on board Switch to heparin drip On Cardizem drip. Acute on chronic congestive heart failure systolic ejection fraction 25% but now up to 45 to 50%. Cardiology following. Transaminitis associated with hyperbilirubinemia, stable Possibly related to ciprofloxacin use versus hepatic congestion secondary to acute exacerbation of CHF -Patient had been following by GI. They recommend continuing to hold Lipitor. Follow-up with GI as an outpatient basis no further workup needed at this time. Acute kidney injury chronic kidney disease stage III - improving - nephrolopgy recs reviewed: Continue IV Lasix 40 mg, monitor renal function and electrolytes, repeat chest x-ray tomorrow, as needed hydralazine added -Off of Aldactone and Cozaar Creatinine stable at 1.6-1.7 Newly discovered diabetes -Continue with sliding scale insulin -Follow blood sugars -Will need oral medications on discharge to help with diabetes management but given liver and kidney dysfunction will defer decision of this until later time. Bedbug infestation on arrival -Status post decontamination Imaging: Renal US with right renal cyst CT head pending, will be reviewed when available DVT prophylaxis: eliquis Anticipated discharge date: pending clinical course
--- NOTE | 2024-03-13 11:09 | P.PN ---
Subjective Progress Note Date: 03/13/24 HISTORY OF PRESENT ILLNESS: This is a 78-year-old female patient of Dr. Garibay with past medical history of atrial tachycardia with RVR, persistent atrial fibrillation, dilated cardiomyopathy with a EF of 25%, coronary artery disease status post stenting, moderate mitral regurgitation. We have been asked to evaluate the patient for A-fib with RVR. Patient was brought into the hospital on 03/04 for altered mental status and has been seen and followed by neurology, GI for elevated liver function test. This morning, patient is minimally responsive to verbal stimuli. She briefly opens her eyes only. EKG A-fib with moderate ventricular rate, telemetry atrial fibrillation with moderately controlled ventricular rate Chest x-ray: Performed 03/07 reveals mild bibasilar infiltrates correlate for pne umonia and atelectasis. Carotid duplex nondiagnostic study WBC 8, hemoglobin 13.2. Sodium 138, potassium 4.3, BUN 25 and creatinine 1.53. A1c 8. Elevated liver function test. TSH 14.9 with free T4 normal at 1.76. Hepatitis panel negative. Urine drug screen positive for benzodiazepines. Home cardiac medications: Eliquis 5 mg twice daily, atorvastatin 40 mg at bedtime, Plavix 75 mg daily, Lasix 40 mg daily, losartan 25 mg at bedtime, Toprol-XL 100 mg daily, Nitrostat as needed, Aldactone 25 mg daily, patient also on levothyroxine 50 mcg daily. Echocardiogram performed on 03/01/2024 reveals EF of 45 to 50%, moderate to severe mitral regurgitation, moderate tricuspid regurgitation, moderately increased pulmonary artery systolic pressure of 49 mmHg. Physiologic pulmonic regurgitation. Electrocardioversion 11/29/2023 for persistent atrial fibrillation and associated cardiomyopathy Electrocardioversion 10/10/2023 for persistent atrial fibrillation Cardiac catheterization 11/07/[address] Ulrich revealed 80% diffuse calcified mid LAD disease, TIMI3 flow, mild CAD in the left circumflex and RCA. Normal left-sided filling pressures. LVEF 25% by echocardiogram. PCI 11/07/[address] Moreira with stenting of the proximal LAD 03/09/2024 Patient is a 78-year-old female who presented to hospital with status A-fib RVR. Patient remains relatively unresponsive today, unable to answer questions or respond to questions. She continues to moan incoherently. Unknown etiology for patient's altered mental status. 03/10/2024 Patient examined this morning at the bedside. Patient's family is present. Patient remains lethargic and unable to answer any questions. Patient remains on IV Lasix 40 mg every 12 hours per primary medicine. Patient remains in atrial fibrillation with a heart rate in the 120s. She is currently on metoprolol 150 mg twice a day. Blood pressure has also been elevated with a systolic in the 160s and a diastolic ranging between [id number]. 03/11 Yesterday, patient went into A-fib with RVR and was transferred back to the cardiac stepdown unit. She was started on a Cardizem drip currently at 15 mg/h. Patient is unable to swallow and take her medications. She continues to have significant mental status changes of unclear etiology. She is followed by neurology and infectious disease. Heart rate is currently around the 1 teens to 120s. She is not on/able to take oral anticoagulation. Blood pressure 112/70, pulse ox 97% on 2 L nasal cannula. 03/12 Patient remains in atrial fibrillation with rate not well-controlled. She is maintained on Cardizem drip at 15 mg/h as well as heparin drip. At 15 mg/h as well as heparin drip. Family states that patient did open her eyes today and took a little bit of water off a sponge. Blood pressure 124/64, heart rate 101- 124, pulse ox 94% on 2 L. Repeat blood work reveals sodium 146, CO2 20, BUN 50 creatinine 2.49. AST 60, ALT 74, alkaline phosphatase 162. 03/13 Patient continues to have significant change in mental status although she did open her eyes to verbal stimuli this morning. She is maintained on amiodarone drip. She is still not able to take any oral medications. She is also on a heparin drip. Heart rate is running in the low 100s, blood pressure 119/75, pulse ox 90% on 2 L nasal cannula. Patient is on D5W per nephrology. PHYSICAL EXAM: VITAL SIGNS: Reviewed. GENERAL: Well-developed in no acute distress. NECK: Supple. No JVD or thyromegaly LUNGS: Re which is an improvement to her mental status.spirations even and unlabored. Lungs essentially clear to auscultation bilaterally. HEART: Mild tachycardic. Irregular rate and rhythm. S1 and S2 heard. EXTREMITIES: No clubbing or cyanosis. Peripheral pulses intact. No lower extre mity edema ASSESSMENT: Altered mental status of unclear etiology Persistent atrial fibrillation with fairly controlled ventricular rate Acute on chronic heart failure with mildly reduced EF, 45-50, previously reduced EF of 25% Transaminitis Acute kidney injury History of atrial tachycardia with RVR Dilated cardiomyopathy with EF of 25% in the past, now 45 to 50% Coronary artery disease status post stenting Moderate mitral regurgitation and moderate tricuspid regurgitation Abnormal TSH PLAN: Continue patient on amiodarone drip Continue patient on heparin drip until she is able to take oral medications Further recommendations pending patient course Nurse practitioner note has been reviewed by physician. Signing provider agrees with the documented findings, assessment, and plan of care documented by [employer] as a scribe. Objective - Vital Signs Vital signs: Vital Signs Temp 97.7 F 03/12/24 20:00 Pulse 100 03/13/24 03:50 Resp 16 03/13/24 03:50 BP 119/75 03/13/24 03:50 Pulse Ox 98 03/13/24 03:50 FiO2 Intake & Output 03/12/24 03/13/24 03/13/24 18:59 06:59 18:59 Intake Total 191.422 68.883 Output Total 875 500 Balance -683.578 -431.117 Weight 95.6 kg 92.5 kg Intake: Intake, IV Titration 191.422 68.883 Amount Diltiazem 125 mg In 97.25 Sodium Chloride 0.9% 100 ml @ 15 MG/HR 15 mls/hr IV .Q8H20M [facility] Rx#: [id number] Heparin Sod,Pork in 0.45% 94.172 68.883 NaCl 25,000 unit In 0.45 % NaCl 1 250ml.bag @ 10. 46 UNITS/KG/HR 10 mls/hr IV .Q24H [facility] Rx#: [id number] Oral 0 Output: Urine 875 500 Other: Voiding Method Indwelling Catheter Indwelling Catheter # Bowel Movements 1 - Labs CBC & Chem 7: 03/13/24 07:41 03/13/24 07:41 Labs: Abnormal Lab Results - Last 24 Hours (Table) 03/12/24 03/12/24 03/12/24 Range/Units 11:32 11:32 11:32 Hct 47.7 H (34.0-46.0) % MCV 103.7 H (80.0-100.0) fL MCHC 30.5 L (31.0-37.0) g/dL RDW 17.8 H (11.5-15.5) % Neutrophils # 8.5 H (1.3-7.7) k/uL Lymphocytes # 0.8 L (1.0-4.8) k/uL Macrocytosis INR 1.2 H (<1.2) APTT 38.5 H (22.0-30.0) sec Sodium 146 H (137-145) mmol/L Chloride 118 H (98-107) mmol/L Carbon Dioxide 20 L (22-30) mmol/L BUN 50 H (7-17) mg/dL Creatinine 2.49 H (0.52-1.04) mg/dL Glucose 144 H (74-99) mg/dL POC Glucose (mg/dL) (70-110) mg/dL Total Bilirubin 1.7 H (0.2-1.3) mg/dL AST 60 H (14-36) U/L ALT 74 H (4-34) U/L Alkaline Phosphatase 162 H (38-126) U/L Total Protein 5.0 L (6.3-8.2) g/dL Albumin 2.6 L (3.5-5.0) g/dL 03/12/24 03/12/24 03/12/24 Range/Units 11:40 16:30 19:58 Hct (34.0-46.0) % MCV (80.0-100.0) fL MCHC (31.0-37.0) g/dL RDW (11.5-15.5) % Neutrophils # (1.3-7.7) k/uL Lymphocytes # (1.0-4.8) k/uL Macrocytosis INR (<1.2) APTT 54.4 H (22.0-30.0) sec Sodium (137-145) mmol/L Chloride (98-107) mmol/L Carbon Dioxide (22-30) mmol/L BUN (7-17) mg/dL Creatinine (0.52-1.04) mg/dL Glucose (74-99) mg/dL POC Glucose (mg/dL) 134 H 169 H (70-110) mg/dL Total Bilirubin (0.2-1.3) mg/dL AST (14-36) U/L ALT (4-34) U/L Alkaline Phosphatase (38-126) U/L Total Protein (6.3-8.2) g/dL Albumin (3.5-5.0) g/dL 03/12/24 03/13/24 03/13/24 Range/Units 20:06 05:41 07:11 Hct (34.0-46.0) % MCV (80.0-100.0) fL MCHC (31.0-37.0) g/dL RDW (11.5-15.5) % Neutrophils # (1.3-7.7) k/uL Lymphocytes # (1.0-4.8) k/uL Macrocytosis INR (<1.2) APTT 73.1 H (22.0-30.0) sec Sodium (137-145) mmol/L Chloride (98-107) mmol/L Carbon Dioxide (22-30) mmol/L BUN (7-17) mg/dL Creatinine (0.52-1.04) mg/dL Glucose (74-99) mg/dL POC Glucose (mg/dL) 186 H 216 H (70-110) mg/dL Total Bilirubin (0.2-1.3) mg/dL AST (14-36) U/L ALT (4-34) U/L Alkaline Phosphatase (38-126) U/L Total Protein (6.3-8.2) g/dL Albumin (3.5-5.0) g/dL 03/13/24 Range/Units 07:41 Hct 52.2 H (34.0-46.0) % MCV 107.6 H (80.0-100.0) fL MCHC 28.8 L (31.0-37.0) g/dL RDW 17.3 H (11.5-15.5) % Neutrophils # (1.3-7.7) k/uL Lymphocytes # 0.7 L (1.0-4.8) k/uL Macrocytosis Marked A INR (<1.2) APTT (22.0-30.0) sec Sodium (137-145) mmol/L Chloride (98-107) mmol/L Carbon Dioxide (22-30) mmol/L BUN (7-17) mg/dL Creatinine (0.52-1.04) mg/dL Glucose (74-99) mg/dL POC Glucose (mg/dL) (70-110) mg/dL Total Bilirubin (0.2-1.3) mg/dL AST (14-36) U/L ALT (4-34) U/L Alkaline Phosphatase (38-126) U/L Total Protein (6.3-8.2) g/dL Albumin (3.5-5.0) g/dL
--- NOTE | 2024-03-13 11:20 | P.PN ---
Subjective Patient is seen in follow-up for acute kidney injury. Renal function stable. Creatinine 2.26 today. Sodium level 144. On IV Lasix. Nonoliguric. Now on amiodarone drip for A-fib with RVR. Not a reliable historian. Daughter present at bedside. Vital signs stable. General: No acute distress. Lethargic. HEENT: Head exam is unremarkable. On nasal cannula. LUNGS: No audible rhonchi or wheezes. HEART: Irregular rate and rhythm. ABDOMEN: Nontender. EXTREMITITES: No edema. Objective - Vital Signs Vital signs: Vital Signs Temp 97.7 F 03/12/24 20:00 Pulse 100 03/13/24 03:50 Resp 16 03/13/24 03:50 BP 119/75 03/13/24 03:50 Pulse Ox 98 03/13/24 03:50 FiO2 Intake & Output 03/12/24 03/13/24 03/13/24 18:59 06:59 18:59 Intake Total 191.422 68.883 Output Total 875 500 Balance -683.578 -431.117 Weight 95.6 kg 92.5 kg Intake: Intake, IV Titration 191.422 68.883 Amount Diltiazem 125 mg In 97.25 Sodium Chloride 0.9% 100 ml @ 15 MG/HR 15 mls/hr IV .Q8H20M [facility] Rx#: [id number] Heparin Sod,Pork in 0.45% 94.172 68.883 NaCl 25,000 unit In 0.45 % NaCl 1 250ml.bag @ 10. 46 UNITS/KG/HR 10 mls/hr IV .Q24H [facility] Rx#: [id number] Oral 0 Output: Urine 875 500 Other: Voiding Method Indwelling Catheter Indwelling Catheter # Bowel Movements 1 - Labs CBC & Chem 7: 03/13/24 07:41 03/13/24 07:41 Labs: Abnormal Lab Results - Last 24 Hours (Table) 03/12/24 03/12/24 03/12/24 Range/Units 11:32 11:32 11:32 Hct 47.7 H (34.0-46.0) % MCV 103.7 H (80.0-100.0) fL MCHC 30.5 L (31.0-37.0) g/dL RDW 17.8 H (11.5-15.5) % Neutrophils # 8.5 H (1.3-7.7) k/uL Lymphocytes # 0.8 L (1.0-4.8) k/uL Macrocytosis INR 1.2 H (<1.2) APTT 38.5 H (22.0-30.0) sec Sodium 146 H (137-145) mmol/L Chloride 118 H (98-107) mmol/L Carbon Dioxide 20 L (22-30) mmol/L BUN 50 H (7-17) mg/dL Creatinine 2.49 H (0.52-1.04) mg/dL Glucose 144 H (74-99) mg/dL POC Glucose (mg/dL) (70-110) mg/dL Total Bilirubin 1.7 H (0.2-1.3) mg/dL AST 60 H (14-36) U/L ALT 74 H (4-34) U/L Alkaline Phosphatase 162 H (38-126) U/L Total Protein 5.0 L (6.3-8.2) g/dL Albumin 2.6 L (3.5-5.0) g/dL 03/12/24 03/12/24 03/12/24 Range/Units 11:40 16:30 19:58 Hct (34.0-46.0) % MCV (80.0-100.0) fL MCHC (31.0-37.0) g/dL RDW (11.5-15.5) % Neutrophils # (1.3-7.7) k/uL Lymphocytes # (1.0-4.8) k/uL Macrocytosis INR (<1.2) APTT 54.4 H (22.0-30.0) sec Sodium (137-145) mmol/L Chloride (98-107) mmol/L Carbon Dioxide (22-30) mmol/L BUN (7-17) mg/dL Creatinine (0.52-1.04) mg/dL Glucose (74-99) mg/dL POC Glucose (mg/dL) 134 H 169 H (70-110) mg/dL Total Bilirubin (0.2-1.3) mg/dL AST (14-36) U/L ALT (4-34) U/L Alkaline Phosphatase (38-126) U/L Total Protein (6.3-8.2) g/dL Albumin (3.5-5.0) g/dL 03/12/24 03/13/24 03/13/24 Range/Units 20:06 05:41 07:11 Hct (34.0-46.0) % MCV (80.0-100.0) fL MCHC (31.0-37.0) g/dL RDW (11.5-15.5) % Neutrophils # (1.3-7.7) k/uL Lymphocytes # (1.0-4.8) k/uL Macrocytosis INR (<1.2) APTT 73.1 H (22.0-30.0) sec Sodium (137-145) mmol/L Chloride (98-107) mmol/L Carbon Dioxide (22-30) mmol/L BUN (7-17) mg/dL Creatinine (0.52-1.04) mg/dL Glucose (74-99) mg/dL POC Glucose (mg/dL) 186 H 216 H (70-110) mg/dL Total Bilirubin (0.2-1.3) mg/dL AST (14-36) U/L ALT (4-34) U/L Alkaline Phosphatase (38-126) U/L Total Protein (6.3-8.2) g/dL Albumin (3.5-5.0) g/dL 03/13/24 03/13/24 Range/Units 07:41 07:41 Hct 52.2 H (34.0-46.0) % MCV 107.6 H (80.0-100.0) fL MCHC 28.8 L (31.0-37.0) g/dL RDW 17.3 H (11.5-15.5) % Neutrophils # (1.3-7.7) k/uL Lymphocytes # 0.7 L (1.0-4.8) k/uL Macrocytosis Marked A INR (<1.2) APTT (22.0-30.0) sec Sodium (137-145) mmol/L Chloride 116 H (98-107) mmol/L Carbon Dioxide (22-30) mmol/L BUN 46 H (7-17) mg/dL Creatinine 2.26 H (0.52-1.04) mg/dL Glucose 198 H (74-99) mg/dL POC Glucose (mg/dL) (70-110) mg/dL Total Bilirubin 1.4 H (0.2-1.3) mg/dL AST 57 H (14-36) U/L ALT 59 H (4-34) U/L Alkaline Phosphatase 144 H (38-126) U/L Total Protein 4.7 L (6.3-8.2) g/dL Albumin 2.4 L (3.5-5.0) g/dL Assessment and Plan Plan: Assessment: 1. Acute kidney injury secondary to ATN secondary to cardiorenal syndrome and hemodynamic instability. Creatinine stable at 2.26 today. No hydronephrosis noted on kidney ultrasound. Both kidneys atrophic. 2. Chronic kidney disease stage IIIa with baseline creatinine 1.1-1.2 in October and November 2023. 3. A-fib with RVR. On amiodarone drip. Cardiology following. 4. Diabetes mellitus. 5. Acute on chronic systolic CHF with ejection fraction of 25 to 30% with mild to moderate mitral and tricuspid regurgitation and moderate pulmonary hypertension noted on echocardiogram done October 2023. Per cardiology, EF is now 45 to 50%. 6. Volume overload. On IV Lasix. 7. Hypothyroidism maintained on Synthroid. 8. Mild hypernatremia from lack of oral water intake. On D5W. better. 9. E. coli UTI on antibiotics. Plan: Maintain D5W. Maintain IV Lasix for now. Encouraged oral intake. Avoid nephrotoxins. Continue to monitor renal function and urine output.
[2024-03-13 11:29] LABS: Glucose,Whole Blood 161 mg/dL (70-110)
--- NOTE | 2024-03-13 16:31 | P.PN ---
Subjective Progress Note Date: 03/12/24 Principal diagnosis: Reason for follow-up is urinary tract infection Patient is a 78-year-old female with a past medical history significant for hypertension hyperlipidemia sleep apnea atrial fibrillation patient has been brought into the hospital on 03/04/2024 for evaluation of increasing confusion, initial consult placed for bug bites and concern for possible cellulitis. On today's evaluation that is 03/12/2024, the patient continues to be afebrile, the patient is on 2 L nasal oxygen and breathing comfortably, the Pt remains to be lethargic however she did open eyes to her name but did not answer any question no vomiting diarrhea and the changes reported by the family at the bedside Patient white count is 10.1, creatinine is 2.49 Objective - Vital Signs Vital signs: Vital Signs Temp 97.7 F 03/12/24 11:29 Pulse 105 H 03/12/24 11:29 Resp 18 03/12/24 11:29 BP 124/64 03/12/24 11:29 Pulse Ox 94 L 03/12/24 11:29 FiO2 Intake & Output 03/11/24 03/12/24 03/12/24 18:59 06:59 18:59 Intake Total 99.25 302.75 0 Output Total 775 425 450 Balance -675.75 -122.25 -450 Intake: Intake, IV Titration 99.25 302.75 Amount Diltiazem 125 mg In 99.25 231.25 Sodium Chloride 0.9% 100 ml @ 15 MG/HR 15 mls/hr IV .Q8H20M [facility] Rx#: [id number] Heparin Sod,Pork in 0.45% 71.5 NaCl 25,000 unit In 0.45 % NaCl 1 250ml.bag @ 10. 46 UNITS/KG/HR 10 mls/hr IV .Q24H [facility] Rx#: [id number] Oral 0 0 Output: Urine 775 425 450 Other: Voiding Method Indwelling Catheter Indwelling Catheter Indwelling Catheter - Exam GENERAL DESCRIPTION: An elderly female lying in bed in no distress RESPIRATORY SYSTEM: Unlabored breathing , decreased breath sounds at bases HEART: S1 S2 regular rate and rhythm , ABDOMEN: Soft , no tenderness EXTREMITIES: Multiple scratch and bite hernandez on the leg which are drying out - Labs CBC & Chem 7: 03/13/24 07:41 03/13/24 07:41 Labs: Abnormal Lab Results - Last 24 Hours (Table) 03/11/24 03/11/24 03/11/24 Range/Units 12:29 12:29 15:20 Hct 49.9 H (34.0-46.0) % MCV 104.7 H (80.0-100.0) fL MCHC 30.2 L (31.0-37.0) g/dL RDW 17.9 H (11.5-15.5) % Neutrophils # 8.8 H (1.3-7.7) k/uL Lymphocytes # 0.7 L (1.0-4.8) k/uL Macrocytosis Marked A PT 15.3 H (10.0-12.5) sec INR 1.5 H (<1.2) APTT >200.0 H* (22.0-30.0) sec Sodium 146 H (137-145) mmol/L Chloride 118 H (98-107) mmol/L Carbon Dioxide 21 L (22-30) mmol/L BUN 43 H (7-17) mg/dL Creatinine 2.33 H (0.52-1.04) mg/dL Glucose 143 H (74-99) mg/dL POC Glucose (mg/dL) (70-110) mg/dL Total Bilirubin 1.9 H (0.2-1.3) mg/dL AST 71 H (14-36) U/L ALT 85 H (4-34) U/L Alkaline Phosphatase 189 H (38-126) U/L Total Protein 4.7 L (6.3-8.2) g/dL Albumin 2.5 L (3.5-5.0) g/dL 03/11/24 03/11/24 03/11/24 Range/Units 16:22 20:04 20:18 Hct (34.0-46.0) % MCV (80.0-100.0) fL MCHC (31.0-37.0) g/dL RDW (11.5-15.5) % Neutrophils # (1.3-7.7) k/uL Lymphocytes # (1.0-4.8) k/uL Macrocytosis PT (10.0-12.5) sec INR (<1.2) APTT >200.0 H* (22.0-30.0) sec Sodium (137-145) mmol/L Chloride (98-107) mmol/L Carbon Dioxide (22-30) mmol/L BUN (7-17) mg/dL Creatinine (0.52-1.04) mg/dL Glucose (74-99) mg/dL POC Glucose (mg/dL) 133 H 152 H (70-110) mg/dL Total Bilirubin (0.2-1.3) mg/dL AST (14-36) U/L ALT (4-34) U/L Alkaline Phosphatase (38-126) U/L Total Protein (6.3-8.2) g/dL Albumin (3.5-5.0) g/dL 03/12/24 03/12/24 Range/Units 06:11 11:40 Hct (34.0-46.0) % MCV (80.0-100.0) fL MCHC (31.0-37.0) g/dL RDW (11.5-15.5) % Neutrophils # (1.3-7.7) k/uL Lymphocytes # (1.0-4.8) k/uL Macrocytosis PT (10.0-12.5) sec INR (<1.2) APTT (22.0-30.0) sec Sodium (137-145) mmol/L Chloride (98-107) mmol/L Carbon Dioxide (22-30) mmol/L BUN (7-17) mg/dL Creatinine (0.52-1.04) mg/dL Glucose (74-99) mg/dL POC Glucose (mg/dL) 156 H 134 H (70-110) mg/dL Total Bilirubin (0.2-1.3) mg/dL AST (14-36) U/L ALT (4-34) U/L Alkaline Phosphatase (38-126) U/L Total Protein (6.3-8.2) g/dL Albumin (3.5-5.0) g/dL Microbiology - Last 24 Hours (Table) 03/06/24 17:21 Blood Culture - Final Blood 03/06/24 17:07 Blood Culture - Final Blood 03/09/24 10:08 Urine Culture - Final Urine,Voided Escherichia coli Assessment and Plan (1) Urinary tract infection Current Visit: Yes Status: Acute Code(s): N39.0 - URINARY TRACT INFECTION, SITE NOT SPECIFIED SNOMED Code(s): 94243727 Plan: 1patient presented to hospital mental status changes likely multifactorial patient did have multiple bug bites to the lower extremity however those are drying out with no evidence of any active cellulitis at the same time the patient did have a chest x-ray with bibasilar infiltrate more likely representing atelectasis clinically not behaving as pneumonia in this patient with no fever or elevated white count 2-patient did have normal procalcitonin however she did have a positive UA 3-patient urine is growing E. coli that is sensitive to Zosyn to continue and monitor clinical course closely Dictation was produced using [employer] dictation software. please excuse any grammatical, word or spelling errors. Time with Patient: Less than 30
--- NOTE | 2024-03-13 16:32 | P.PN ---
Subjective Progress Note Date: 03/13/24 Principal diagnosis: Reason for follow-up is urinary tract infection Patient is a 78-year-old female with a past medical history significant for hypertension hyperlipidemia sleep apnea atrial fibrillation patient has been brought into the hospital on 03/04/2024 for evaluation of increasing confusion, initial consult placed for bug bites and concern for possible cellulitis. On today's evaluation that is 03/13/2024, Patient is afebrile patient is currently on 2 L nasal oxygen and breathing more comfortably patient is slightly more awake alert today as she open eyes to her name I did answer some simple question and specifically she denies having any headache or intake remains to be poor no diarrhea has been reported by the daughter at the bedside Patient white count is 8.8, creatinine is 2.26 Objective - Vital Signs Vital signs: Vital Signs Temp 97.7 F 03/12/24 20:00 Pulse 100 03/13/24 03:50 Resp 16 03/13/24 03:50 BP 119/75 03/13/24 03:50 Pulse Ox 98 03/13/24 03:50 FiO2 Intake & Output 03/12/24 03/13/24 03/13/24 18:59 06:59 18:59 Intake Total 191.422 68.883 Output Total 875 500 Balance -683.578 -431.117 Weight 95.6 kg 92.5 kg Intake: Intake, IV Titration 191.422 68.883 Amount Diltiazem 125 mg In 97.25 Sodium Chloride 0.9% 100 ml @ 15 MG/HR 15 mls/hr IV .Q8H20M [facility] Rx#: [id number] Heparin Sod,Pork in 0.45% 94.172 68.883 NaCl 25,000 unit In 0.45 % NaCl 1 250ml.bag @ 10. 46 UNITS/KG/HR 10 mls/hr IV .Q24H [facility] Rx#: [id number] Oral 0 Output: Urine 875 500 Other: Voiding Method Indwelling Catheter Indwelling Catheter # Bowel Movements 1 - Exam GENERAL DESCRIPTION: An elderly female lying in bed in no distress RESPIRATORY SYSTEM: Unlabored breathing , decreased breath sounds at bases HEART: S1 S2 regular rate and rhythm , ABDOMEN: Soft , no tenderness EXTREMITIES: Multiple scratch and bite hernandez on the leg which are drying out - Labs CBC & Chem 7: 03/13/24 07:41 03/13/24 07:41 Labs: Abnormal Lab Results - Last 24 Hours (Table) 03/12/24 03/12/24 03/12/24 Range/Units 11:32 11:32 11:32 Hct 47.7 H (34.0-46.0) % MCV 103.7 H (80.0-100.0) fL MCHC 30.5 L (31.0-37.0) g/dL RDW 17.8 H (11.5-15.5) % Neutrophils # 8.5 H (1.3-7.7) k/uL Lymphocytes # 0.8 L (1.0-4.8) k/uL Macrocytosis INR 1.2 H (<1.2) APTT 38.5 H (22.0-30.0) sec Sodium 146 H (137-145) mmol/L Chloride 118 H (98-107) mmol/L Carbon Dioxide 20 L (22-30) mmol/L BUN 50 H (7-17) mg/dL Creatinine 2.49 H (0.52-1.04) mg/dL Glucose 144 H (74-99) mg/dL POC Glucose (mg/dL) (70-110) mg/dL Total Bilirubin 1.7 H (0.2-1.3) mg/dL AST 60 H (14-36) U/L ALT 74 H (4-34) U/L Alkaline Phosphatase 162 H (38-126) U/L Total Protein 5.0 L (6.3-8.2) g/dL Albumin 2.6 L (3.5-5.0) g/dL 03/12/24 03/12/24 03/12/24 Range/Units 11:40 16:30 19:58 Hct (34.0-46.0) % MCV (80.0-100.0) fL MCHC (31.0-37.0) g/dL RDW (11.5-15.5) % Neutrophils # (1.3-7.7) k/uL Lymphocytes # (1.0-4.8) k/uL Macrocytosis INR (<1.2) APTT 54.4 H (22.0-30.0) sec Sodium (137-145) mmol/L Chloride (98-107) mmol/L Carbon Dioxide (22-30) mmol/L BUN (7-17) mg/dL Creatinine (0.52-1.04) mg/dL Glucose (74-99) mg/dL POC Glucose (mg/dL) 134 H 169 H (70-110) mg/dL Total Bilirubin (0.2-1.3) mg/dL AST (14-36) U/L ALT (4-34) U/L Alkaline Phosphatase (38-126) U/L Total Protein (6.3-8.2) g/dL Albumin (3.5-5.0) g/dL 03/12/24 03/13/24 03/13/24 Range/Units 20:06 05:41 07:11 Hct (34.0-46.0) % MCV (80.0-100.0) fL MCHC (31.0-37.0) g/dL RDW (11.5-15.5) % Neutrophils # (1.3-7.7) k/uL Lymphocytes # (1.0-4.8) k/uL Macrocytosis INR (<1.2) APTT 73.1 H (22.0-30.0) sec Sodium (137-145) mmol/L Chloride (98-107) mmol/L Carbon Dioxide (22-30) mmol/L BUN (7-17) mg/dL Creatinine (0.52-1.04) mg/dL Glucose (74-99) mg/dL POC Glucose (mg/dL) 186 H 216 H (70-110) mg/dL Total Bilirubin (0.2-1.3) mg/dL AST (14-36) U/L ALT (4-34) U/L Alkaline Phosphatase (38-126) U/L Total Protein (6.3-8.2) g/dL Albumin (3.5-5.0) g/dL 03/13/24 03/13/24 03/13/24 Range/Units 07:41 07:41 11:27 Hct 52.2 H (34.0-46.0) % MCV 107.6 H (80.0-100.0) fL MCHC 28.8 L (31.0-37.0) g/dL RDW 17.3 H (11.5-15.5) % Neutrophils # (1.3-7.7) k/uL Lymphocytes # 0.7 L (1.0-4.8) k/uL Macrocytosis Marked A INR (<1.2) APTT (22.0-30.0) sec Sodium (137-145) mmol/L Chloride 116 H (98-107) mmol/L Carbon Dioxide (22-30) mmol/L BUN 46 H (7-17) mg/dL Creatinine 2.26 H (0.52-1.04) mg/dL Glucose 198 H (74-99) mg/dL POC Glucose (mg/dL) 161 H (70-110) mg/dL Total Bilirubin 1.4 H (0.2-1.3) mg/dL AST 57 H (14-36) U/L ALT 59 H (4-34) U/L Alkaline Phosphatase 144 H (38-126) U/L Total Protein 4.7 L (6.3-8.2) g/dL Albumin 2.4 L (3.5-5.0) g/dL Assessment and Plan (1) Urinary tract infection Current Visit: Yes Status: Acute Code(s): N39.0 - URINARY TRACT INFECTION, SITE NOT SPECIFIED SNOMED Code(s): 40926393 Plan: 1patient presented to hospital mental status changes likely multifactorial patient did have multiple bug bites to the lower extremity however those are drying out with no evidence of any active cellulitis at the same time the patient did have a chest x-ray with bibasilar infiltrate more likely representing atelectasis clinically not behaving as pneumonia in this patient with no fever or elevated white count 2-patient did have normal procalcitonin however she did have a positive UA 3-patient urine is growing E. coli that is sensitive to Zosyn, patient did have some improvement in her mentation, care has been discussed in detail with the daughter and the at the bedside as well as with the neurologist clinically doubt encephalitis however LP has been offered to the patient daughter and has been offered which has currently being refused at this point Dictation was produced using [employer] software. please excuse any grammatical, word or spelling errors.
[2024-03-13 16:54] LABS: Glucose,Whole Blood 164 mg/dL (70-110)
[2024-03-13 19:46] LABS: Glucose,Whole Blood 185 mg/dL (70-110)
[2024-03-14 05:58] LABS: Glucose,Whole Blood 198 mg/dL (70-110)
[2024-03-14] MEDS: AMIODARONE 200 MG TAB PO SCH (10:34)
[2024-03-14] MEDS: APIXABAN 5 MG TAB PO SCH (10:34)
--- NOTE | 2024-03-14 11:20 | P.PN ---
Subjective Patient is seen in follow-up for acute kidney injury. Renal function stable. Creatinine 2.26 yesterday. Sodium level 144. On IV Lasix. Nonoliguric. On amiodarone drip for A-fib with RVR. Will be transition to oral meds today. Mentation improved. More awake and alert. Daughter present at bedside. Vital signs stable. General: No acute distress. HEENT: Head exam is unremarkable. On nasal cannula. LUNGS: No audible rhonchi or wheezes. HEART: Irregular rate and rhythm. ABDOMEN: Nontender. EXTREMITITES: No edema. Objective - Vital Signs Vital signs: Vital Signs Temp 97.5 F L 03/14/24 08:44 Pulse 139 H 03/14/24 08:45 Resp 16 03/14/24 08:45 BP 113/81 03/14/24 08:44 Pulse Ox 95 03/14/24 08:44 FiO2 Intake & Output 03/13/24 03/14/24 03/14/24 18:59 06:59 18:59 Intake Total 1005.964 279.833 Output Total 850 175 Balance 155.964 104.833 Weight 92.5 kg 93 kg Intake: Intake, IV Titration 1005.964 279.833 Amount Amiodarone 450 mg In 250 246.672 Dextrose 5% in Water 250 ml @ 0.5 MG/MIN 16.667 mls/hr IV .Q15H [facility] Rx#: [id number] Dextrose 5% in Water 1, 600 000 ml @ 75 mls/hr IV . [id number] [facility] Rx#:[id number] Heparin Sod,Pork in 0.45% 155.964 33.161 NaCl 25,000 unit In 0.45 % NaCl 1 250ml.bag @ 10. 46 UNITS/KG/HR 10 mls/hr IV .Q24H [facility] Rx#: [id number] Output: Urine 850 175 Other: Voiding Method Indwelling Catheter Indwelling Catheter Indwelling Catheter # Bowel Movements 1 - Labs CBC & Chem 7: 03/13/24 07:41 03/13/24 07:41 Labs: Abnormal Lab Results - Last 24 Hours (Table) 03/13/24 03/13/24 03/13/24 Range/Units 11:27 16:52 19:45 POC Glucose (mg/dL) 161 H 164 H 185 H (70-110) mg/dL 03/14/24 Range/Units 05:57 POC Glucose (mg/dL) 198 H (70-110) mg/dL Assessment and Plan Plan: Assessment: 1. Acute kidney injury secondary to ATN secondary to cardiorenal syndrome and hemodynamic instability. Creatinine stable at 2.26 as of yesterday. No hydronephrosis noted on kidney ultrasound. Both kidneys atrophic. 2. Chronic kidney disease stage IIIa with baseline creatinine 1.1-1.2 in October and November 2023. 3. A-fib with RVR. On amiodarone drip. Cardiology following. 4. Diabetes mellitus. 5. Acute on chronic systolic CHF with ejection fraction of 25 to 30% with mild to moderate mitral and tricuspid regurgitation and moderate pulmonary hypertension noted on echocardiogram done October 2023. Per cardiology, EF is now 45 to 50%. 6. Volume overload. On IV Lasix. 7. Hypothyroidism maintained on Synthroid. 8. Mild hypernatremia from lack of oral water intake. On D5W. Better. 9. E. coli UTI on antibiotics. Plan: Maintain D5W. Maintain IV Lasix for now. Encouraged oral intake. Avoid nephrotoxins. Continue to monitor renal function and urine output. Will be started on diet today. Morning labs pending.
--- NOTE | 2024-03-14 11:24 | P.PN ---
Subjective Progress Note Date: 03/14/24 Principal diagnosis: Patient is a 78-year-old female with known hypertension, dyslipidemia, and A-fib who presented to the emergency department with altered mentation for the previous 2 weeks. Patient was recently being treated for urinary tract infection with Cipro and then nitrofurantoin. On arrival labs were remarkable for creatinine of 1.21 which appears to be at patient's baseline. She had mildly elevated bilirubin at 2.3, AST 65, and ALT of 60. Urinalysis was negative. Urine drug screen was positive for benzodiazepines. She underwent chest x-ray which showed cardiomegaly and COPD. She underwent CT head which demonstrated no acute intracranial process with remote left periventricular white matter changes consistent with small vessel ischemic disease. She was a dmitted and subsequently underwent liver ultrasound which demonstrated small right renal cyst. She was followed by neurology and GI. She underwent repeat head CT which again showed no acute process. She underwent EEG which demonstrated moderate to severe background slowing consistent with toxic m etabolic encephalopathy. She had carotid Dopplers performed which were nondiagnostic as patient was combative. She developed fluid overload and cardiology was subsequently consulted. It came to light that patient had history of dilated cardiomyopathy and with current ejection fraction 45 to 50%. GI was consulted and the patient had hepatitis serologies performed which were negative, and negative antimitochondrial antibody, and a normal alpha 1 antitrypsin and AFP. B12 and folate were normal. TSH was elevated at 14.9 and hemoglobin A1c was elevated at 8 consistent with new onset diabetes. She developed worsening JANNETH which was felt to be due to cardiorenal syndrome. And nephrology was consulted. More awake today, no reported diarrhea or vomiting, no chest pain. Patient's daughter at bedside.. Objective - Vital Signs Vital signs: Vital Signs Temp 97.5 F L 03/14/24 08:44 Pulse 139 H 03/14/24 08:45 Resp 16 03/14/24 08:45 BP 113/81 03/14/24 08:44 Pulse Ox 95 03/14/24 08:44 FiO2 Intake & Output 03/13/24 03/14/24 03/14/24 18:59 06:59 18:59 Intake Total 1005.964 279.833 Output Total 850 175 Balance 155.964 104.833 Weight 92.5 kg 93 kg Intake: Intake, IV Titration 1005.964 279.833 Amount Amiodarone 450 mg In 250 246.672 Dextrose 5% in Water 250 ml @ 0.5 MG/MIN 16.667 mls/hr IV .Q15H [facility] Rx#: [id number] Dextrose 5% in Water 1, 600 000 ml @ 75 mls/hr IV . [id number] [facility] Rx#:[id number] Heparin Sod,Pork in 0.45% 155.964 33.161 NaCl 25,000 unit In 0.45 % NaCl 1 250ml.bag @ 10. 46 UNITS/KG/HR 10 mls/hr IV .Q24H [facility] Rx#: [id number] Output: Urine 850 175 Other: Voiding Method Indwelling Catheter Indwelling Catheter Indwelling Catheter # Bowel Movements 1 - Exam General: Nontoxic, no distress, appears at stated age Cardiovascular: S1S2 reg, no murmur Lungs: Coarse breath sounds bilateral, no rhonchi, no rales, no accessory muscle use Abdominal: Soft, nontender to palpation, no guarding Ext: No gross muscle atrophy, trace+ edema bilateral lower extremities, no contractures Neuro: CN II-XI grossly intact, no focal neuro deficits Psych: Partially oriented - Labs CBC & Chem 7: 03/13/24 07:41 03/13/24 07:41 Labs: Abnormal Lab Results - Last 24 Hours (Table) 03/13/24 03/13/24 03/13/24 Range/Units 11:27 16:52 19:45 POC Glucose (mg/dL) 161 H 164 H 185 H (70-110) mg/dL 03/14/24 Range/Units 05:57 POC Glucose (mg/dL) 198 H (70-110) mg/dL Assessment and Plan Plan: Acute encephalopathy with history of underlying dementia, undetermined etiology Hypothyroidism -Possible multifocal etiologies including recent ciprofloxacin use, benzodiazepine use, under treated hypothyroidism, CVA -TSH is mildly elevated, levothyroxine increased to 75 mcg this hospital stay -Neurology following -Infectious disease: Low clinical suspicion for pneumonia or cellulitis -Stay off oral benzos much as possible. Patient has not been receiving any benzos since September 2023 decrease to 12.5 daily during this admission -Previous head CT negative for any acute process, EEG consistent with toxic metabolic encephalopathy -UA is negative, ammonia negative -YANET pending -syphillus antibody negative Continue supportive care, continue to monitor. Neurology on board, discussed possible MRI, family want to hold off for now. Continue to monitor, continue participate with PT OT. Acute hypoxic respiratory failure Acute on chronic systolic congestive heart failure with ejection fraction 45 to 50% Persistent atrial fibrillation Hypertension -Continue to wean oxygen -Cardiology note reviewed: On metoprolol 150 twice daily, also started on Cardizem 30 3 times daily however, patient unable to take oral medications at the moment -Eliquis 5 mg twice daily, Plavix 75 mg daily Persistent atrial fibrillation with RVR: Cardiology on board Switch to heparin drip On Cardizem drip. Acute on chronic congestive heart failure systolic ejection fraction 25% but now up to 45 to 50%. Cardiology following. Now with patient able to tolerate oral intake she is switch back to Eliquis and amiodarone as well as p.o. Cardizem. Transaminitis associated with hyperbilirubinemia, stable Possibly related to ciprofloxacin use versus hepatic congestion secondary to acute exacerbation of CHF -Patient had been following by GI. They recommend continuing to hold Lipitor. Follow-up with GI as an outpatient basis no further workup needed at this time. Acute kidney injury chronic kidney disease stage III - improving - nephrolopgy recs reviewed: Continue IV Lasix 40 mg, monitor renal function and electrolytes, repeat chest x-ray tomorrow, as needed hydralazine added -Off of Aldactone and Cozaar Creatinine stable at 1.6-1.7 Serum creatinine has increased up to 2.2, nephrology following, continue to monitor closely. Newly discovered diabetes -Continue with sliding scale insulin -Follow blood sugars -Will need oral medications on discharge to help with diabetes management but given liver and kidney dysfunction will defer decision of this until later time. Bedbug infestation on arrival -Status post decontamination Imaging: Renal US with right renal cyst CT head pending, will be reviewed when available DVT prophylaxis: eliquis Anticipated discharge date: pending clinical course Discussed with patient's daughter at bedside, continue PT OT, hopefully to discharge to rehab once clinically better.
[2024-03-14 11:39] LABS: Glucose,Whole Blood 176 mg/dL (70-110)
[2024-03-14 11:56] LABS: ALT 52 U/L (4-34); AST 61 U/L (14-36); African American GFR (CKD) 29 (>60 ml/min/1.73 sqM); Albumin 2.5 g/dL (3.5-5.0); Alkaline Phosphatase 143 U/L (38-126); Anion Gap 4 mmol/L; Blood Urea Nitrogen 42 mg/dL (7-17); Calcium 8.5 mg/dL (8.4-10.2); Carbon Dioxide 25 mmol/L (22-30); Chloride 112 mmol/L (98-107); Glucose 176 mg/dL (74-99); Magnesium 1.9 mg/dL (1.6-2.3); Non-African American GFR(CKD) 25 (>60 ml/min/1.73 sqM); Potassium 3.7 mmol/L (3.5-5.1); Sodium 141 mmol/L (137-145); Total Bilirubin 1.3 mg/dL (0.2-1.3); Total Protein 4.8 g/dL (6.3-8.2)
--- NOTE | 2024-03-14 12:16 | P.PN ---
Subjective Progress Note Date: 03/14/24 I am following-up with patient and she is accompanied with her family members who feels she continues to make improvement compared to last week and better than a couple days ago. Objective - Vital Signs Vital signs: Vital Signs Temp 97.5 F L 03/14/24 11:36 Pulse 98 03/14/24 11:36 Resp 16 03/14/24 11:36 BP 116/88 03/14/24 11:36 Pulse Ox 98 03/14/24 11:36 FiO2 Intake & Output 03/13/24 03/14/24 03/14/24 18:59 06:59 18:59 Intake Total 1005.964 279.833 Output Total 850 175 Balance 155.964 104.833 Weight 92.5 kg 93 kg Intake: Intake, IV Titration 1005.964 279.833 Amount Amiodarone 450 mg In 250 246.672 Dextrose 5% in Water 250 ml @ 0.5 MG/MIN 16.667 mls/hr IV .Q15H [facility] Rx#: [id number] Dextrose 5% in Water 1, 600 000 ml @ 75 mls/hr IV . [id number] [facility] Rx#:[id number] Heparin Sod,Pork in 0.45% 155.964 33.161 NaCl 25,000 unit In 0.45 % NaCl 1 250ml.bag @ 10. 46 UNITS/KG/HR 10 mls/hr IV .Q24H [facility] Rx#: [id number] Output: Urine 850 175 Other: Voiding Method Indwelling Catheter Indwelling Catheter Indwelling Catheter # Bowel Movements 1 - Exam General: Lying in bed and does not appear in acute distress. HENT: Supple neck Neuro: Limited. Is moderate drowsy but is awakeable to verbal stimuli. She is able to follow few simple commands (showing thumbs up, lifting arms, smiling). She is oriented to self. She correctly named her and daughter name after second try. She correctly named pen and watch. She is verbalizing today more than a couple days ago. No facial droop appreciated. Motor: Limited but is able to lift bilateral uppers above gravity. Decrease tone throughout. - Labs CBC & Chem 7: 03/13/24 07:41 03/14/24 11:19 Labs: Abnormal Lab Results - Last 24 Hours (Table) 03/13/24 03/13/24 03/14/24 Range/Units 16:52 19:45 05:57 Chloride (98-107) mmol/L BUN (7-17) mg/dL Creatinine (0.52-1.04) mg/dL Glucose (74-99) mg/dL POC Glucose (mg/dL) 164 H 185 H 198 H (70-110) mg/dL AST (14-36) U/L ALT (4-34) U/L Alkaline Phosphatase (38-126) U/L Total Protein (6.3-8.2) g/dL Albumin (3.5-5.0) g/dL 03/14/24 03/14/24 Range/Units 11:19 11:37 Chloride 112 H (98-107) mmol/L BUN 42 H (7-17) mg/dL Creatinine 1.87 H (0.52-1.04) mg/dL Glucose 176 H (74-99) mg/dL POC Glucose (mg/dL) 176 H (70-110) mg/dL AST 61 H (14-36) U/L ALT 52 H (4-34) U/L Alkaline Phosphatase 143 H (38-126) U/L Total Protein 4.8 L (6.3-8.2) g/dL Albumin 2.5 L (3.5-5.0) g/dL Assessment and Plan Assessment: * Altered mental status, likely due to toxic metabolic encephalopathy. Patient diagnosed with acute UTI. Patient is afebrile and no leukocytosis---is making improvement in the last few days. 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 * Elevated hemoglobin A1c 8.0, probable with new onset diabetes. * Acute kidney injury, today further better * Elevated liver enzymes, today is slightly worse * Congestive heart failure with EF 25% * COPD * Hypothyroidism, getting worse * Poor social condition with bedbugs infestation. Status post decontamination Plan: * Repeat CT head on 03/10/2024, showed no acute process. * The family would like to hold off MRI and if not improving they will consider attempting MRI Brain again. * Also I.D. was consider lumbar puncture but patient's family wants to hold off since making improvement. * Patient now diagnosed with acute UTI, started on Zosyn. ID following. * GI is on board. * Patient has multiple scratches on the body. Uncertain if there is some cellulitis. Infectious disease on consult. * Carotid Doppler could not be performed as patient was not cooperative. * EEG was performed, which was abnormal due to background slowing of moderate to severe degree. This is suggestive of generalized cerebral dysfunction as can be seen with toxic metabolic encephalopathy or related to diffuse structural brain abnormality. Clinical correlation is recommended. No epileptiform activity was seen. * B12 1659, folate 30.9, MMA, B6, pending. Ammonia is normal 16. * Hemoglobin A1c 8.0, consistent with new onset diabetes. Patient does have history of borderline diabetes in the past. Will defer to IM. * Patient has atrial fibrillation, currently on Eliquis 5 mg twice daily and P lavix. These will be continued. * Patient's thyroid functions are abnormal. We will defer to IM. * Treatment of other medical conditions as per IM. The plan is discussed with patient's family member who is at bedside. Will follow-up sporadically. Dr. Hunt will resume neurology service tomorrow A.M. Time with Patient: Less than 30
[2024-03-14 12:53] LABS: Anisocytosis Slight; Basophils # (A) 0.1 k/uL (0-0.2); Basophils % (A) 1 %; Eosinophils # (A) 0.1 k/uL (0-0.7); Eosinophils % (A) 2 %; HCT 50.8 % (34.0-46.0); HGB 15.2 gm/dL (11.4-16.0); Hypochromasia Moderate; Lymphocytes # (A) 0.6 k/uL (1.0-4.8); Lymphocytes % (A) 7 %; MCH 31.3 pg (25.0-35.0); MCV 104.5 fL (80.0-100.0); Macrocytosis Moderate; Mean Platelet Volume 9.4; Monocytes # (A) 0.4 k/uL (0-1.0); Monocytes % (A) 6 %; Neutrophils # (A) 6.3 k/uL (1.3-7.7); Neutrophils % (A) 84 %; Platelet Count 234 k/uL (150-450); RBC 4.86 m/uL (3.80-5.40); RDW 17.6 % (11.5-15.5); WBC 7.5 k/uL (3.8-10.6)
[2024-03-14] MEDS: POTASSIUM CHLORIDE ER 20 MEQ TAB.ER PO STA (13:27)
--- NOTE | 2024-03-14 15:23 | P.PN ---
Subjective Progress Note Date: 03/14/24 Principal diagnosis: Reason for follow-up is urinary tract infection Patient is a 78-year-old female with a past medical history significant for hypertension hyperlipidemia sleep apnea atrial fibrillation patient has been brought into the hospital on 03/04/2024 for evaluation of increasing confusion, initial consult placed for bug bites and concern for possible cellulitis. On today's evaluation that is 03/14/2024, patient has been afebrile, patient is breathing comfortably and is currently on 3 L current oxygen, patient slightly more awake and alert today and did answer simple question open eyes to her name no vomiting or diarrhea reported by the at the bedside. Patient white count is 7.5 creatinine is 1.87 blood culture negative Objective - Vital Signs Vital signs: Vital Signs Temp 97.5 F L 03/14/24 11:36 Pulse 98 03/14/24 11:36 Resp 16 03/14/24 11:36 BP 116/88 03/14/24 11:36 Pulse Ox 98 03/14/24 11:36 FiO2 Intake & Output 03/13/24 03/14/24 03/14/24 18:59 06:59 18:59 Intake Total 1005.964 279.833 Output Total 850 175 Balance 155.964 104.833 Weight 92.5 kg 93 kg Intake: Intake, IV Titration 1005.964 279.833 Amount Amiodarone 450 mg In 250 246.672 Dextrose 5% in Water 250 ml @ 0.5 MG/MIN 16.667 mls/hr IV .Q15H [facility] Rx#: [id number] Dextrose 5% in Water 1, 600 000 ml @ 75 mls/hr IV . [id number] [facility] Rx#:[id number] Heparin Sod,Pork in 0.45% 155.964 33.161 NaCl 25,000 unit In 0.45 % NaCl 1 250ml.bag @ 10. 46 UNITS/KG/HR 10 mls/hr IV .Q24H [facility] Rx#: [id number] Output: Urine 850 175 Other: Voiding Method Indwelling Catheter Indwelling Catheter Indwelling Catheter # Bowel Movements 1 - Exam GENERAL DESCRIPTION: An elderly female lying in bed in no distress RESPIRATORY SYSTEM: Unlabored breathing , decreased breath sounds at bases HEART: S1 S2 regular rate and rhythm , ABDOMEN: Soft , no tenderness EXTREMITIES: Multiple scratch and bite hernandez on the leg which are drying out - Labs CBC & Chem 7: 03/14/24 11:10 03/14/24 11:19 Labs: Abnormal Lab Results - Last 24 Hours (Table) 03/13/24 03/13/24 03/14/24 Range/Units 16:52 19:45 05:57 Hct (34.0-46.0) % MCV (80.0-100.0) fL MCHC (31.0-37.0) g/dL RDW (11.5-15.5) % Lymphocytes # (1.0-4.8) k/uL Chloride (98-107) mmol/L BUN (7-17) mg/dL Creatinine (0.52-1.04) mg/dL Glucose (74-99) mg/dL POC Glucose (mg/dL) 164 H 185 H 198 H (70-110) mg/dL AST (14-36) U/L ALT (4-34) U/L Alkaline Phosphatase (38-126) U/L Total Protein (6.3-8.2) g/dL Albumin (3.5-5.0) g/dL 03/14/24 03/14/24 03/14/24 Range/Units 11:10 11:19 11:37 Hct 50.8 H (34.0-46.0) % MCV 104.5 H (80.0-100.0) fL MCHC 30.0 L (31.0-37.0) g/dL RDW 17.6 H (11.5-15.5) % Lymphocytes # 0.6 L (1.0-4.8) k/uL Chloride 112 H (98-107) mmol/L BUN 42 H (7-17) mg/dL Creatinine 1.87 H (0.52-1.04) mg/dL Glucose 176 H (74-99) mg/dL POC Glucose (mg/dL) 176 H (70-110) mg/dL AST 61 H (14-36) U/L ALT 52 H (4-34) U/L Alkaline Phosphatase 143 H (38-126) U/L Total Protein 4.8 L (6.3-8.2) g/dL Albumin 2.5 L (3.5-5.0) g/dL Assessment and Plan (1) Urinary tract infection Current Visit: Yes Status: Acute Code(s): N39.0 - URINARY TRACT INFECTION, SITE NOT SPECIFIED SNOMED Code(s): 18707934 Plan: 1patient presented to hospital mental status changes likely multifactorial patient did have multiple bug bites to the lower extremity however those are drying out with no evidence of any active cellulitis at the same time the patient did have a chest x-ray with bibasilar infiltrate more likely representing atelectasis clinically not behaving as pneumonia in this patient with no fever or elevated white count 2-patient did have normal procalcitonin however she did have a positive UA 3-patient urine is growing E. coli that is sensitive to Zosyn, patient did have some improvement in her mentation, to continue with the Zosyn will transition to oral antibiotics on discharge Dictation was produced using [employer] dictation software. please excuse any grammatical, word or spelling errors. Time with Patient: Less than 30
[2024-03-14] MEDS: PIPERACILLIN-TAZOBACTAM 3.375 GM in SODIUM CHLORIDE 0.9% 100 ML IVPB SCH (15:58)
[2024-03-14 16:56] LABS: Glucose,Whole Blood 188 mg/dL (70-110)
--- NOTE | 2024-03-14 17:21 | P.PN ---
Subjective Progress Note Date: 03/14/24 HISTORY OF PRESENT ILLNESS: This is a 78-year-old female patient of Dr. Garibay with past medical history of atrial tachycardia with RVR, persistent atrial fibrillation, dilated cardiomyopathy with a EF of 25%, coronary artery disease status post stenting, moderate mitral regurgitation. We have been asked to evaluate the patient for A-fib with RVR. Patient was brought into the hospital on 03/04 for altered mental status and has been seen and followed by neurology, GI for elevated liver function test. This morning, patient is minimally responsive to verbal stimuli. She briefly opens her eyes only. EKG A-fib with moderate ventricular rate, telemetry atrial fibrillation with moderately controlled ventricular rate Chest x-ray: Performed 03/07 reveals mild bibasilar infiltrates correlate for pne umonia and atelectasis. Carotid duplex nondiagnostic study WBC 8, hemoglobin 13.2. Sodium 138, potassium 4.3, BUN 25 and creatinine 1.53. A1c 8. Elevated liver function test. TSH 14.9 with free T4 normal at 1.76. Hepatitis panel negative. Urine drug screen positive for benzodiazepines. Home cardiac medications: Eliquis 5 mg twice daily, atorvastatin 40 mg at bedtime, Plavix 75 mg daily, Lasix 40 mg daily, losartan 25 mg at bedtime, Toprol-XL 100 mg daily, Nitrostat as needed, Aldactone 25 mg daily, patient also on levothyroxine 50 mcg daily. Echocardiogram performed on 03/01/2024 reveals EF of 45 to 50%, moderate to severe mitral regurgitation, moderate tricuspid regurgitation, moderately increased pulmonary artery systolic pressure of 49 mmHg. Physiologic pulmonic regurgitation. Electrocardioversion 11/29/2023 for persistent atrial fibrillation and associated cardiomyopathy Electrocardioversion 10/10/2023 for persistent atrial fibrillation Cardiac catheterization 11/07/[address] Ulrich revealed 80% diffuse calcified mid LAD disease, TIMI3 flow, mild CAD in the left circumflex and RCA. Normal left-sided filling pressures. LVEF 25% by echocardiogram. PCI 11/07/[address] Moreira with stenting of the proximal LAD 03/09/2024 Patient is a 78-year-old female who presented to hospital with status A-fib RVR. Patient remains relatively unresponsive today, unable to answer questions or respond to questions. She continues to moan incoherently. Unknown etiology for patient's altered mental status. 03/10/2024 Patient examined this morning at the bedside. Patient's family is present. Patient remains lethargic and unable to answer any questions. Patient remains on IV Lasix 40 mg every 12 hours per primary medicine. Patient remains in atrial fibrillation with a heart rate in the 120s. She is currently on metoprolol 150 mg twice a day. Blood pressure has also been elevated with a systolic in the 160s and a diastolic ranging between [id number]. 03/11 Yesterday, patient went into A-fib with RVR and was transferred back to the cardiac stepdown unit. She was started on a Cardizem drip currently at 15 mg/h. Patient is unable to swallow and take her medications. She continues to have significant mental status changes of unclear etiology. She is followed by neurology and infectious disease. Heart rate is currently around the 1 teens to 120s. She is not on/able to take oral anticoagulation. Blood pressure 112/70, pulse ox 97% on 2 L nasal cannula. 03/12 Patient remains in atrial fibrillation with rate not well-controlled. She is maintained on Cardizem drip at 15 mg/h as well as heparin drip. At 15 mg/h as well as heparin drip. Family states that patient did open her eyes today and took a little bit of water off a sponge. Blood pressure 124/64, heart rate 101- 124, pulse ox 94% on 2 L. Repeat blood work reveals sodium 146, CO2 20, BUN 50 creatinine 2.49. AST 60, ALT 74, alkaline phosphatase 162. 03/13 Patient continues to have significant change in mental status although she did open her eyes to verbal stimuli this morning. She is maintained on amiodarone drip. She is still not able to take any oral medications. She is also on a heparin drip. Heart rate is running in the low 100s, blood pressure 119/75, pulse ox 90% on 2 L nasal cannula. Patient is on D5W per nephrology. 03/14 Patient is more awake and alert today. She is able to answer questions and also take her oral medications. She is in atrial fibrillation running 130s. She is on amiodarone drip and heparin drip. She was able to take her Cardizem oral and Lopressor oral this morning. She states she is feeling better from yesterday. Blood pressure 116/88, heart rate 130s, pulse ox 95% on 3 L nasal cannula. Repeat blood work reveals WBC 7.5, hemoglobin 15.2. BUN 42 creatinine 1.87. Potassium 3.7. PHYSICAL EXAM: VITAL SIGNS: Reviewed. GENERAL: Well-developed in no acute distress. NECK: Supple. No JVD or thyromegaly LUNGS: Re which is an improvement to her mental status.spirations even and unlabored. Lungs essentially clear to auscultation bilaterally. HEART: Mild tachycardic. Irregular rate and rhythm. S1 and S2 heard. EXTREMITIES: No clubbing or cyanosis. Peripheral pulses intact. No lower extremity edema ASSESSMENT: Altered mental status of unclear etiology Persistent atrial fibrillation with fairly controlled ventricular rate Acute on chronic heart failure with mildly reduced EF, 45-50, previously reduced EF of 25% Transaminitis Acute kidney injury History of atrial tachycardia with RVR Dilated cardiomyopathy with EF of 25% in the past, now 45 to 50% Coronary artery disease status post stenting Moderate mitral regurgitation and moderate tricuspid regurgitation Abnormal TSH PLAN: Discontinue amiodarone drip and start patient on oral 400 mg twice daily Discontinue heparin drip and start patient on Eliquis 5 mg twice daily Continue patient's other cardiac medications: Plavix 75 mg daily, Cardizem 30 mg 3 times daily, Lasix 40 mg IV daily, Lopressor 150 mg twice daily Further recommendations pending patient course Nurse practitioner note has been reviewed by physician. Signing provider agrees with the documented findings, assessment, and plan of care documented by [employer] PROGRAM DIRECTOR as a scribe. Objective - Vital Signs Vital signs: Vital Signs Temp 97.5 F L 03/14/24 08:44 Pulse 139 H 03/14/24 08:44 Resp 16 03/14/24 08:44 BP 113/81 03/14/24 08:44 Pulse Ox 95 03/14/24 08:44 FiO2 Intake & Output 03/13/24 03/14/24 03/14/24 18:59 06:59 18:59 Intake Total 1005.964 279.833 Output Total 850 175 Balance 155.964 104.833 Weight 92.5 kg 93 kg Intake: Intake, IV Titration 1005.964 279.833 Amount Amiodarone 450 mg In 250 246.672 Dextrose 5% in Water 250 ml @ 0.5 MG/MIN 16.667 mls/hr IV .Q15H [facility] Rx#: [id number] Dextrose 5% in Water 1, 600 000 ml @ 75 mls/hr IV . [id number] [facility] Rx#:[id number] Heparin Sod,Pork in 0.45% 155.964 33.161 NaCl 25,000 unit In 0.45 % NaCl 1 250ml.bag @ 10. 46 UNITS/KG/HR 10 mls/hr IV .Q24H [facility] Rx#: [id number] Output: Urine 850 175 Other: Voiding Method Indwelling Catheter Indwelling Catheter # Bowel Movements 1 - Labs CBC & Chem 7: 03/14/24 11:10 03/14/24 11:19 Labs: Abnormal Lab Results - Last 24 Hours (Table) 03/13/24 03/13/24 03/13/24 Range/Units 07:41 11:27 16:52 Chloride 116 H (98-107) mmol/L BUN 46 H (7-17) mg/dL Creatinine 2.26 H (0.52-1.04) mg/dL Glucose 198 H (74-99) mg/dL POC Glucose (mg/dL) 161 H 164 H (70-110) mg/dL Total Bilirubin 1.4 H (0.2-1.3) mg/dL AST 57 H (14-36) U/L ALT 59 H (4-34) U/L Alkaline Phosphatase 144 H (38-126) U/L Total Protein 4.7 L (6.3-8.2) g/dL Albumin 2.4 L (3.5-5.0) g/dL 03/13/24 03/14/24 Range/Units 19:45 05:57 Chloride (98-107) mmol/L BUN (7-17) mg/dL Creatinine (0.52-1.04) mg/dL Glucose (74-99) mg/dL POC Glucose (mg/dL) 185 H 198 H (70-110) mg/dL Total Bilirubin (0.2-1.3) mg/dL AST (14-36) U/L ALT (4-34) U/L Alkaline Phosphatase (38-126) U/L Total Protein (6.3-8.2) g/dL Albumin (3.5-5.0) g/dL
[2024-03-14 20:26] LABS: Glucose,Whole Blood 188 mg/dL (70-110)
[2024-03-15 06:13] LABS: Glucose,Whole Blood 168 mg/dL (70-110)
[2024-03-15 08:42] LABS: Anisocytosis Slight; Basophils % (A) 1 %; Eosinophils # (A) 0.2 k/uL (0-0.7); Eosinophils % (A) 3 %; HGB 14.5 gm/dL (11.4-16.0); Hypochromasia Marked; Lymphocytes # (A) 0.6 k/uL (1.0-4.8); Lymphocytes % (A) 10 %; MCH 30.9 pg (25.0-35.0); MCHC 29.1 g/dL (31.0-37.0); MCV 106.1 fL (80.0-100.0); Macrocytosis Marked; Mean Platelet Volume 8.7; Monocytes # (A) 0.4 k/uL (0-1.0); Monocytes % (A) 7 %; Neutrophils # (A) 4.5 k/uL (1.3-7.7); Neutrophils % (A) 78 %; Platelet Count 217 k/uL (150-450); RBC 4.71 m/uL (3.80-5.40); RDW 17.5 % (11.5-15.5); WBC 5.7 k/uL (3.8-10.6)
[2024-03-15] MEDS: LACTATED RINGERS 1,000 ML IV ONE (08:48)
[2024-03-15 09:03] LABS: ALT 45 U/L (4-34); AST 45 U/L (14-36); African American GFR (CKD) 29 (>60 ml/min/1.73 sqM); Albumin 2.3 g/dL (3.5-5.0); Alkaline Phosphatase 119 U/L (38-126); Anion Gap 2 mmol/L; Blood Urea Nitrogen 37 mg/dL (7-17); Calcium 8.4 mg/dL (8.4-10.2); Carbon Dioxide 26 mmol/L (22-30); Chloride 112 mmol/L (98-107); Glucose 164 mg/dL (74-99); Magnesium 1.9 mg/dL (1.6-2.3); Non-African American GFR(CKD) 25 (>60 ml/min/1.73 sqM); Potassium 3.7 mmol/L (3.5-5.1); Sodium 140 mmol/L (137-145); Total Bilirubin 1.1 mg/dL (0.2-1.3); Total Protein 4.5 g/dL (6.3-8.2)
--- NOTE | 2024-03-15 10:12 | P.PN ---
Subjective Progress Note Date: 03/15/24 Principal diagnosis: The patient is a pleasant 78-year-old female patient with a past medical history significant for CAD and ischemic cardiomyopathy and atrial fibrillation as well as hypertension and dyslipidemia and renal failure was admitted to the hospital with a change in mental status. March 15, 2024 The patient was seen and evaluated this morning. Her mentation has improved significantly. Her pressure has been soft. She is on Lasix IV which I am going to stop and start her on oral diuretics. She is not hypoxic and she seems to be overall you bulimic. Beside that she has no chest pain or chest discomfort. She continues to be in atrial fibrillation with controlled heart rate. She is on oral anticoagulation. The examination is remarkable for irregular rhythm with diminished breathing sounds bilaterally and no edema was noted in the lower extremities Assessment Change in mental status which has improved Renal failure which has been stable Atrial fibrillation with controlled heart rate Coronary artery disease Cardiomyopathy Multiple comorbid conditions Plan Continue the current medical regimen DC Lasix IV and start the patient on oral Lasix Continue oral anticoagulation Follow-up with the patient Objective - Vital Signs Vital signs: Vital Signs Temp 95.3 F L 03/15/24 08:27 Pulse 70 03/15/24 09:31 Resp 15 03/15/24 09:31 BP 106/79 03/15/24 09:31 Pulse Ox 99 03/15/24 09:31 FiO2 Intake & Output 03/14/24 03/15/24 03/15/24 18:59 06:59 18:59 Intake Total 118 20 138 Output Total 850 600 Balance -732 -580 138 Weight 93 kg 94 kg Intake: IV 20 20 Invasive Line 3 10 10 Invasive Line 7 10 10 Oral 118 118 Output: Urine 850 600 Other: Voiding Method Indwelling Catheter Indwelling Catheter Indwelling Catheter # Bowel Movements 1 - Labs CBC & Chem 7: 03/15/24 08:07 03/15/24 08:07 Labs: Abnormal Lab Results - Last 24 Hours (Table) 03/14/24 03/14/24 03/14/24 Range/Units 11:10 11:19 11:37 Hct 50.8 H (34.0-46.0) % MCV 104.5 H (80.0-100.0) fL MCHC 30.0 L (31.0-37.0) g/dL RDW 17.6 H (11.5-15.5) % Lymphocytes # 0.6 L (1.0-4.8) k/uL Macrocytosis Chloride 112 H (98-107) mmol/L BUN 42 H (7-17) mg/dL Creatinine 1.87 H (0.52-1.04) mg/dL Glucose 176 H (74-99) mg/dL POC Glucose (mg/dL) 176 H (70-110) mg/dL AST 61 H (14-36) U/L ALT 52 H (4-34) U/L Alkaline Phosphatase 143 H (38-126) U/L Total Protein 4.8 L (6.3-8.2) g/dL Albumin 2.5 L (3.5-5.0) g/dL 03/14/24 03/14/24 03/15/24 Range/Units 16:54 20:24 06:12 Hct (34.0-46.0) % MCV (80.0-100.0) fL MCHC (31.0-37.0) g/dL RDW (11.5-15.5) % Lymphocytes # (1.0-4.8) k/uL Macrocytosis Chloride (98-107) mmol/L BUN (7-17) mg/dL Creatinine (0.52-1.04) mg/dL Glucose (74-99) mg/dL POC Glucose (mg/dL) 188 H 188 H 168 H (70-110) mg/dL AST (14-36) U/L ALT (4-34) U/L Alkaline Phosphatase (38-126) U/L Total Protein (6.3-8.2) g/dL Albumin (3.5-5.0) g/dL 03/15/24 03/15/24 Range/Units 08:07 08:07 Hct 50.0 H (34.0-46.0) % MCV 106.1 H (80.0-100.0) fL MCHC 29.1 L (31.0-37.0) g/dL RDW 17.5 H (11.5-15.5) % Lymphocytes # 0.6 L (1.0-4.8) k/uL Macrocytosis Marked A Chloride 112 H (98-107) mmol/L BUN 37 H (7-17) mg/dL Creatinine 1.90 H (0.52-1.04) mg/dL Glucose 164 H (74-99) mg/dL POC Glucose (mg/dL) (70-110) mg/dL AST 45 H (14-36) U/L ALT 45 H (4-34) U/L Alkaline Phosphatase (38-126) U/L Total Protein 4.5 L (6.3-8.2) g/dL Albumin 2.3 L (3.5-5.0) g/dL
[2024-03-15] MEDS: FUROSEMIDE 20 MG TAB PO SCH (10:29)
--- NOTE | 2024-03-15 11:07 | P.PN ---
Subjective Patient is seen in follow-up for acute kidney injury. Renal function stable. Sodium level normal. Changed to oral Lasix this morning. Nonoliguric. Now on oral amiodarone. Family present at bedside. Tolerating pured diet. Vital signs stable. General: No acute distress. HEENT: Head exam is unremarkable. On nasal cannula. LUNGS: No audible rhonchi or wheezes. HEART: Regular rate and rhythm. ABDOMEN: Nontender. EXTREMITITES: No edema. Objective - Vital Signs Vital signs: Vital Signs Temp 95.3 F L 03/15/24 08:27 Pulse 70 03/15/24 09:31 Resp 15 03/15/24 09:31 BP 106/79 03/15/24 09:31 Pulse Ox 99 03/15/24 09:31 FiO2 Intake & Output 03/14/24 03/15/24 03/15/24 18:59 06:59 18:59 Intake Total 118 20 138 Output Total 850 600 300 Balance -732 -580 -162 Weight 93 kg 94 kg Intake: IV 20 20 Invasive Line 3 10 10 Invasive Line 7 10 10 Oral 118 118 Output: Urine 850 600 300 Other: Voiding Method Indwelling Catheter Indwelling Catheter Indwelling Catheter # Bowel Movements 1 - Labs CBC & Chem 7: 03/15/24 08:07 03/15/24 08:07 Labs: Abnormal Lab Results - Last 24 Hours (Table) 03/14/24 03/14/24 03/14/24 Range/Units 11:10 11:19 11:37 Hct 50.8 H (34.0-46.0) % MCV 104.5 H (80.0-100.0) fL MCHC 30.0 L (31.0-37.0) g/dL RDW 17.6 H (11.5-15.5) % Lymphocytes # 0.6 L (1.0-4.8) k/uL Macrocytosis Chloride 112 H (98-107) mmol/L BUN 42 H (7-17) mg/dL Creatinine 1.87 H (0.52-1.04) mg/dL Glucose 176 H (74-99) mg/dL POC Glucose (mg/dL) 176 H (70-110) mg/dL AST 61 H (14-36) U/L ALT 52 H (4-34) U/L Alkaline Phosphatase 143 H (38-126) U/L Total Protein 4.8 L (6.3-8.2) g/dL Albumin 2.5 L (3.5-5.0) g/dL 03/14/24 03/14/24 03/15/24 Range/Units 16:54 20:24 06:12 Hct (34.0-46.0) % MCV (80.0-100.0) fL MCHC (31.0-37.0) g/dL RDW (11.5-15.5) % Lymphocytes # (1.0-4.8) k/uL Macrocytosis Chloride (98-107) mmol/L BUN (7-17) mg/dL Creatinine (0.52-1.04) mg/dL Glucose (74-99) mg/dL POC Glucose (mg/dL) 188 H 188 H 168 H (70-110) mg/dL AST (14-36) U/L ALT (4-34) U/L Alkaline Phosphatase (38-126) U/L Total Protein (6.3-8.2) g/dL Albumin (3.5-5.0) g/dL 03/15/24 03/15/24 Range/Units 08:07 08:07 Hct 50.0 H (34.0-46.0) % MCV 106.1 H (80.0-100.0) fL MCHC 29.1 L (31.0-37.0) g/dL RDW 17.5 H (11.5-15.5) % Lymphocytes # 0.6 L (1.0-4.8) k/uL Macrocytosis Marked A Chloride 112 H (98-107) mmol/L BUN 37 H (7-17) mg/dL Creatinine 1.90 H (0.52-1.04) mg/dL Glucose 164 H (74-99) mg/dL POC Glucose (mg/dL) (70-110) mg/dL AST 45 H (14-36) U/L ALT 45 H (4-34) U/L Alkaline Phosphatase (38-126) U/L Total Protein 4.5 L (6.3-8.2) g/dL Albumin 2.3 L (3.5-5.0) g/dL Assessment and Plan Plan: Assessment: 1. Acute kidney injury secondary to ATN secondary to cardiorenal syndrome and hemodynamic instability. Creatinine stable at 1.9. No hydronephrosis noted on kidney ultrasound. Both kidneys atrophic. 2. Chronic kidney disease stage IIIa with baseline creatinine 1.1-1.2 in October and November 2023. 3. A-fib with RVR. On oral amiodarone, Cardizem and Lopressor. Cardiology following. 4. Diabetes mellitus. 5. Acute on chronic systolic CHF with ejection fraction of 25 to 30% with mild to moderate mitral and tricuspid regurgitation and moderate pulmonary hypertension noted on echocardiogram done October 2023. Per cardiology, EF is now 45 to 50%. 6. Volume overload. On IV Lasix. 7. Hypothyroidism maintained on Synthroid. 8. Mild hypernatremia from lack of oral water intake. On D5W. Better. 9. E. coli UTI on antibiotics. Plan: Hep-Lock IV fluids. Maintain lasix. Avoid nephrotoxins. Continue to monitor renal function and urine output. Encouraged oral intake as able to tolerate.
[2024-03-15 11:31] LABS: Glucose,Whole Blood 142 mg/dL (70-110)
--- NOTE | 2024-03-15 16:23 | P.PN ---
Subjective Progress Note Date: 03/15/24 Patient is still lethargic, but arousable. She is able to identify her at bedside but not able to identify her daughter. She is not able to identify the president or the name of this hospital. Informed by nursing that her rectal temperatures have been low at 95.7 with borderline soft blood pressures in the 80s over 60s. Gen: In NAD, non-toxic HEENT: normocephalic, atraumatic, hearing acuity is intant, mucous membranes moist CVS: perfusing all extremities well, no pitting edema, Respiratory: symmetric chest expansion, no accessory muscle use, GI: soft, NTTP, ND, : no suprapubic tenderness, no CVA tenderness MSK/Derm: no rashes, cyanosis Neuro: CN II-XII intact, no motor weakness, Hospital course: Patient is a 78-year-old female with known hypertension, dyslipidemia, and A-fib who presented to the emergency department with altered mentation for the previous 2 weeks. Patient was recently being treated for urinary tract infection with Cipro and then nitrofurantoin. On arrival labs were remarkable for creatinine of 1.21 which appears to be at patient's baseline. She had mildly elevated bilirubin at 2.3, AST 65, and ALT of 60. Urinalysis was negative. Urine drug screen was positive for benzodiazepines. She underwent chest x-ray which showed cardiomegaly and COPD. She underwent CT head which demonstrated no acute intracranial process with remote left periventricular white matter changes consistent with small vessel ischemic disease. She was admitted and subsequently underwent liver ultrasound which demonstrated small right renal cyst. She was followed by neurology and GI. She underwent repeat head CT which again showed no acute process. She underwent EEG which demonstrated moderate to severe background slowing consistent with toxic metabolic encephalopathy. She had carotid Dopplers performed which were nondiagnostic as patient was combative. She developed fluid overload and cardiology was subsequently consulted. It came to light that patient had history of dilated cardiomyopathy and with current ejection fraction 45 to 50%. GI was consulted and the patient had hepatitis serologies performed which were negative, and negative antimitochondrial antibody, and a normal alpha 1 antitrypsin and AFP. B12 and folate were normal. TSH was elevated at 14.9 and hemoglobin A1c was elevated at 8 consistent with new onset diabetes. She developed worsening JANNETH which was felt to be due to cardiorenal syndrome. And nephrology was consulted. Assessment/plan: Acute encephalopathy with history of underlying dementia, undetermined etiology Hypothyroidism -Possible multifocal etiologies including recent ciprofloxacin use, benzodiazepine use, under treated hypothyroidism, CVA -TSH is mildly elevated, levothyroxine increased to 75 mcg this hospital stay -Neurology following -Infectious disease: Low clinical suspicion for pneumonia or cellulitis -Previous head CT negative for any acute process, EEG consistent with toxic metabolic encephalopathy -UA is negative, ammonia negative -YANET negative -syphillus antibody negative Continue supportive care, continue to monitor. Neurology on board, discussed possible MRI with Neurlogy and family, they would like to pursue; discussed this with nephrology, we will hold off on MRI until sunday to see if kidneys can tolerate contrast. Continue to monitor, continue participate with PT OT. Acute hypoxic respiratory failure Acute on chronic systolic congestive heart failure with ejection fraction 45 to 50% Persistent atrial fibrillation Hypertension -Continue to wean oxygen -Cardiology note reviewed: On metoprolol 150 twice daily, also started on Cardizem 30 3 times daily however, patient unable to take oral medications at the moment -Eliquis 5 mg twice daily, Plavix 75 mg daily Persistent atrial fibrillation with RVR: Cardiology on board Switch to heparin drip On Cardizem drip. Acute on chronic congestive heart failure systolic ejection fraction 25% but now up to 45 to 50%. Cardiology following. Now with patient able to tolerate oral intake she is switch back to Eliquis and amiodarone as well as p.o. Cardizem. Transaminitis associated with hyperbilirubinemia, stable Possibly related to ciprofloxacin use versus hepatic congestion secondary to acute exacerbation of CHF -Patient had been following by GI. They recommend continuing to hold Lipitor. Follow-up with GI as an outpatient basis no further workup needed at this time. Acute kidney injury chronic kidney disease stage III - improving - nephrolopgy recs reviewed: Continue IV Lasix 40 mg, monitor renal function and electrolytes, repeat chest x-ray tomorrow, as needed hydralazine added -Off of Aldactone and Cozaar Creatinine stable at 1.6-1.7 Serum creatinine has increased up to 2.2, nephrology following, continue to monitor closely. Newly discovered diabetes -Continue with sliding scale insulin -Follow blood sugars -Will need oral medications on discharge to help with diabetes management but given liver and kidney dysfunction will defer decision of this until later time. Bedbug infestation on arrival -Status post decontamination DVT prophylaxis: eliquis Anticipated discharge date: pending clinical course Discussed with patient's daughter at bedside, continue PT OT, hopefully to discharge to rehab once clinically better. Objective - Vital Signs Vital signs: Vital Signs Temp 96.7 F L 03/15/24 15:38 Pulse 91 03/15/24 15:38 Resp 16 03/15/24 15:38 BP 116/82 03/15/24 15:38 Pulse Ox 99 03/15/24 15:38 FiO2 Intake & Output 03/14/24 03/15/24 03/15/24 18:59 06:59 18:59 Intake Total 118 20 138 Output Total 850 600 300 Balance -780 -865 -162 Weight 93 kg 94 kg Intake: IV 20 20 Invasive Line 3 10 10 Invasive Line 7 10 10 Oral 118 118 Output: Urine 850 600 300 Other: Voiding Method Indwelling Catheter Indwelling Catheter Indwelling Catheter # Bowel Movements 1 1 - Labs CBC & Chem 7: 03/15/24 08:07 03/15/24 08:07 Labs: Abnormal Lab Results - Last 24 Hours (Table) 03/14/24 03/14/24 03/15/24 Range/Units 16:54 20:24 06:12 Hct (34.0-46.0) % MCV (80.0-100.0) fL MCHC (31.0-37.0) g/dL RDW (11.5-15.5) % Lymphocytes # (1.0-4.8) k/uL Macrocytosis Chloride (98-107) mmol/L BUN (7-17) mg/dL Creatinine (0.52-1.04) mg/dL Glucose (74-99) mg/dL POC Glucose (mg/dL) 188 H 188 H 168 H (70-110) mg/dL AST (14-36) U/L ALT (4-34) U/L Total Protein (6.3-8.2) g/dL Albumin (3.5-5.0) g/dL 03/15/24 03/15/24 03/15/24 Range/Units 08:07 08:07 11:29 Hct 50.0 H (34.0-46.0) % MCV 106.1 H (80.0-100.0) fL MCHC 29.1 L (31.0-37.0) g/dL RDW 17.5 H (11.5-15.5) % Lymphocytes # 0.6 L (1.0-4.8) k/uL Macrocytosis Marked A Chloride 112 H (98-107) mmol/L BUN 37 H (7-17) mg/dL Creatinine 1.90 H (0.52-1.04) mg/dL Glucose 164 H (74-99) mg/dL POC Glucose (mg/dL) 142 H (70-110) mg/dL AST 45 H (14-36) U/L ALT 45 H (4-34) U/L Total Protein 4.5 L (6.3-8.2) g/dL Albumin 2.3 L (3.5-5.0) g/dL
[2024-03-15 16:33] LABS: Glucose,Whole Blood 153 mg/dL (70-110)
[2024-03-15 20:17] LABS: Glucose,Whole Blood 165 mg/dL (70-110)
[2024-03-16 05:44] LABS: Glucose,Whole Blood 206 mg/dL (70-110)
--- NOTE | 2024-03-16 10:12 | P.PN ---
Subjective Progress Note Date: 03/16/24 Principal diagnosis: The patient is a pleasant 78-year-old female patient with a past medical history significant for CAD and ischemic cardiomyopathy and atrial fibrillation as well as hypertension and dyslipidemia and renal failure was admitted to the hospital with a change in mental status. March 15, 2024 The patient was seen and evaluated this morning. Her mentation has improved significantly. Her pressure has been soft. She is on Lasix IV which I am going to stop and start her on oral diuretics. She is not hypoxic and she seems to be overall you bulimic. Beside that she has no chest pain or chest discomfort. She continues to be in atrial fibrillation with controlled heart rate. She is on oral anticoagulation. The examination is remarkable for irregular rhythm with diminished breathing sounds bilaterally and no edema was noted in the lower extremities January 15, 2024 The patient was seen and evaluated this morning which she continues to have some change in mental status and confusion but hemodynamically she is stable. She still having workup about the change in mental status including MRI of the brain when the creatinine is improving and also possible lumbar puncture. The examination is stable for vital signs with normal second and first heart sounds and clear breathing sounds bilaterally and no edema was noted in the lower extremities Assessment Change in mental status which has improved Renal failure which has been stable Atrial fibrillation with controlled heart rate Coronary artery disease Cardiomyopathy Multiple comorbid conditions Plan Continue the current medical regimen Continue oral anticoagulation Follow-up with the patient Objective - Vital Signs Vital signs: Vital Signs Temp 97.6 F 03/16/24 07:59 Pulse 97 03/16/24 09:56 Resp 14 03/16/24 09:56 BP 122/78 03/16/24 07:59 Pulse Ox 97 03/16/24 07:59 FiO2 Intake & Output 03/15/24 03/16/24 03/16/24 18:59 06:59 18:59 Intake Total 188 Output Total 300 600 Balance -112 -600 Weight 94 kg Intake: IV 20 Invasive Line 3 10 Invasive Line 7 10 Oral 168 Output: Urine 300 600 Other: Voiding Method Indwelling Catheter Indwelling Catheter Indwelling Catheter # Bowel Movements 1 1 - Labs CBC & Chem 7: 03/15/24 08:07 03/15/24 08:07 Labs: Abnormal Lab Results - Last 24 Hours (Table) 03/15/24 03/15/24 03/15/24 Range/Units 11:29 16:31 20:16 POC Glucose (mg/dL) 142 H 153 H 165 H (70-110) mg/dL 03/16/24 Range/Units 05:42 POC Glucose (mg/dL) 206 H (70-110) mg/dL
[2024-03-16 11:06] LABS: African American GFR (CKD) 35 (>60 ml/min/1.73 sqM); Anion Gap 2 mmol/L; Blood Urea Nitrogen 31 mg/dL (7-17); Calcium 8.4 mg/dL (8.4-10.2); Carbon Dioxide 25 mmol/L (22-30); Chloride 113 mmol/L (98-107); Glucose 149 mg/dL (74-99); Non-African American GFR(CKD) 30 (>60 ml/min/1.73 sqM); Potassium 3.4 mmol/L (3.5-5.1); Sodium 140 mmol/L (137-145)
--- NOTE | 2024-03-16 11:08 | P.PN ---
Subjective Patient is seen in follow-up for acute kidney injury. Renal function better. Sodium level normal. On oral Lasix. Nonoliguric. Now on oral amiodarone. Tolerating pured diet. Mentation better today. Vital signs stable. General: No acute distress. HEENT: Head exam is unremarkable. On nasal cannula. LUNGS: No audible rhonchi or wheezes. HEART: Regular rate and rhythm. ABDOMEN: Nontender. EXTREMITITES: No edema. Objective - Vital Signs Vital signs: Vital Signs Temp 97.6 F 03/16/24 07:59 Pulse 97 03/16/24 09:56 Resp 14 03/16/24 09:56 BP 122/78 03/16/24 07:59 Pulse Ox 97 03/16/24 07:59 FiO2 Intake & Output 03/15/24 03/16/24 03/16/24 18:59 06:59 18:59 Intake Total 188 120 Output Total 300 600 Balance -112 -600 120 Weight 94 kg Intake: IV 20 Invasive Line 3 10 Invasive Line 7 10 Oral 168 120 Output: Urine 300 600 Other: Voiding Method Indwelling Catheter Indwelling Catheter Indwelling Catheter # Bowel Movements 1 1 - Labs CBC & Chem 7: 03/15/24 08:07 03/16/24 10:20 Labs: Abnormal Lab Results - Last 24 Hours (Table) 03/15/24 03/15/24 03/15/24 Range/Units 11:29 16:31 20:16 Potassium (3.5-5.1) mmol/L Chloride (98-107) mmol/L BUN (7-17) mg/dL Creatinine (0.52-1.04) mg/dL Glucose (74-99) mg/dL POC Glucose (mg/dL) 142 H 153 H 165 H (70-110) mg/dL 03/16/24 03/16/24 Range/Units 05:42 10:20 Potassium 3.4 L (3.5-5.1) mmol/L Chloride 113 H (98-107) mmol/L BUN 31 H (7-17) mg/dL Creatinine 1.63 H (0.52-1.04) mg/dL Glucose 149 H (74-99) mg/dL POC Glucose (mg/dL) 206 H (70-110) mg/dL Assessment and Plan Plan: Assessment: 1. Acute kidney injury secondary to ATN secondary to cardiorenal syndrome and hemodynamic instability. Creatinine improved to 1.63 today. No hydronephrosis noted on kidney ultrasound. Both kidneys atrophic. 2. Chronic kidney disease stage IIIa with baseline creatinine 1.1-1.2 in October and November 2023. 3. A-fib with RVR. On oral amiodarone, Cardizem and Lopressor. Cardiology following. 4. Diabetes mellitus. 5. Acute on chronic systolic CHF with ejection fraction of 25 to 30% with mild to moderate mitral and tricuspid regurgitation and moderate pulmonary hypertension noted on echocardiogram done October 2023. Per cardiology, EF is now 45 to 50%. 6. Volume overload. On IV Lasix. 7. Hypothyroidism maintained on Synthroid. 8. Mild hypernatremia from lack of oral water intake. s/p D5W. Better. 9. E. coli UTI on antibiotics. 10. Hypokalemia from diuresis. Plan: Replace potassium. Maintain lasix. Avoid nephrotoxins. Continue to monitor renal function and urine output. Encouraged oral intake as able to tolerate.
[2024-03-16 11:24] LABS: Glucose,Whole Blood 152 mg/dL (70-110)
[2024-03-16] MEDS: POTASSIUM CHLORIDE ER 20 MEQ TAB.ER PO STA (11:55)
--- NOTE | 2024-03-16 12:24 | P.PN ---
Subjective Progress Note Date: 03/16/24 Patient is still lethargic, but arousable. She is able to identify her at bedside but not able to identify her daughter. She is not able to identify the president or the name of this hospital. Informed by nursing that her rectal temperatures have been low at 95.7 with borderline soft blood pressures in the 80s over 60s. Gen: In NAD, non-toxic HEENT: normocephalic, atraumatic, hearing acuity is intant, mucous membranes moist CVS: perfusing all extremities well, no pitting edema, Respiratory: symmetric chest expansion, no accessory muscle use, GI: soft, NTTP, ND, : no suprapubic tenderness, no CVA tenderness MSK/Derm: no rashes, cyanosis Neuro: CN II-XII intact, no motor weakness, Hospital course: Patient is a 78-year-old female with known hypertension, dyslipidemia, and A-fib who presented to the emergency department with altered mentation for the previous 2 weeks. Patient was recently being treated for urinary tract infection with Cipro and then nitrofurantoin. On arrival labs were remarkable for creatinine of 1.21 which appears to be at patient's baseline. She had mildly elevated bilirubin at 2.3, AST 65, and ALT of 60. Urinalysis was negative. Urine drug screen was positive for benzodiazepines. She underwent chest x-ray which showed cardiomegaly and COPD. She underwent CT head which demonstrated no acute intracranial process with remote left periventricular white matter changes consistent with small vessel ischemic disease. She was admitted and subsequently underwent liver ultrasound which demonstrated small right renal cyst. She was followed by neurology and GI. She underwent repeat head CT which again showed no acute process. She underwent EEG which demonstrated moderate to severe background slowing consistent with toxic metabolic encephalopathy. She had carotid Dopplers performed which were nondiagnostic as patient was combative. She developed fluid overload and cardiology was subsequently consulted. It came to light that patient had history of dilated cardiomyopathy and with current ejection fraction 45 to 50%. GI was consulted and the patient had hepatitis serologies performed which were negative, and negative antimitochondrial antibody, and a normal alpha 1 antitrypsin and AFP. B12 and folate were normal. TSH was elevated at 14.9 and hemoglobin A1c was elevated at 8 consistent with new onset diabetes. She developed worsening JANNETH which was felt to be due to cardiorenal syndrome. And nephrology was consulted. Assessment/plan: Acute encephalopathy with history of underlying dementia, undetermined etiology Hypothyroidism -Possible multifocal etiologies including recent ciprofloxacin use, benzodiazepine use, under treated hypothyroidism, CVA -TSH is mildly elevated, levothyroxine increased to 75 mcg this hospital stay -Neurology following -Infectious disease: Low clinical suspicion for pneumonia or cellulitis -Previous head CT negative for any acute process, EEG consistent with toxic metabolic encephalopathy -UA is negative, ammonia negative -YANET negative -syphillus antibody negative Continue supportive care, continue to monitor. Neurology on board, discussed possible MRI with Neurlogy and family, they would like to pursue; discussed this with nephrology, we will hold off on MRI until sunday to see if kidneys can tolerate contrast. Discussed with ID, it's possible to pursue LP, but family would like to defer due to mental status improvement Continue to monitor, continue participate with PT OT. Acute hypoxic respiratory failure Acute on chronic systolic congestive heart failure with ejection fraction 45 to 50% Persistent atrial fibrillation Hypertension -Continue to wean oxygen -Cardiology note reviewed: On metoprolol 150 twice daily, also started on Cardizem 30 3 times daily however, patient unable to take oral medications at the moment -Eliquis 5 mg twice daily, Plavix 75 mg daily Persistent atrial fibrillation with RVR: Cardiology on board Switch to heparin drip On Cardizem drip. Acute on chronic congestive heart failure systolic ejection fraction 25% but now up to 45 to 50%. Cardiology following. Now with patient able to tolerate oral intake she is switch back to Eliquis and amiodarone as well as p.o. Cardizem. Transaminitis associated with hyperbilirubinemia, stable Possibly related to ciprofloxacin use versus hepatic congestion secondary to acute exacerbation of CHF -Patient had been following by GI. They recommend continuing to hold Lipitor. Follow-up with GI as an outpatient basis no further workup needed at this time. Acute kidney injury chronic kidney disease stage III - improving - nephrolopgy recs reviewed: Continue IV Lasix 40 mg, monitor renal function and electrolytes, repeat chest x-ray tomorrow, as needed hydralazine added -Off of Aldactone and Cozaar Creatinine stable at 1.6-1.7 Serum creatinine has increased up to 2.2, nephrology following, continue to monitor closely. Newly discovered diabetes -Continue with sliding scale insulin -Follow blood sugars -Will need oral medications on discharge to help with diabetes management but given liver and kidney dysfunction will defer decision of this until later time. Bedbug infestation on arrival -Status post decontamination DVT prophylaxis: armani Anticipated discharge date: pending clinical course Discussed with patient's daughter at bedside, continue PT OT, hopefully to discharge to rehab once clinically better. Objective - Vital Signs Vital signs: Vital Signs Temp 97.6 F 03/16/24 11:51 Pulse 95 03/16/24 11:51 Resp 18 03/16/24 11:51 BP 122/88 03/16/24 11:51 Pulse Ox 96 03/16/24 11:51 FiO2 Intake & Output 03/15/24 03/16/24 03/16/24 18:59 06:59 18:59 Intake Total 188 120 Output Total 300 600 350 Balance -112 -600 -230 Weight 94 kg Intake: IV 20 Invasive Line 3 10 Invasive Line 7 10 Oral 168 120 Output: Urine 300 600 350 Other: Voiding Method Indwelling Catheter Indwelling Catheter Indwelling Catheter # Bowel Movements 1 1 - Labs CBC & Chem 7: 03/15/24 08:07 03/16/24 10:20 Labs: Abnormal Lab Results - Last 24 Hours (Table) 03/15/24 03/15/24 03/16/24 Range/Units 16:31 20:16 05:42 Potassium (3.5-5.1) mmol/L Chloride (98-107) mmol/L BUN (7-17) mg/dL Creatinine (0.52-1.04) mg/dL Glucose (74-99) mg/dL POC Glucose (mg/dL) 153 H 165 H 206 H (70-110) mg/dL 03/16/24 03/16/24 Range/Units 10:20 11:18 Potassium 3.4 L (3.5-5.1) mmol/L Chloride 113 H (98-107) mmol/L BUN 31 H (7-17) mg/dL Creatinine 1.63 H (0.52-1.04) mg/dL Glucose 149 H (74-99) mg/dL POC Glucose (mg/dL) 152 H (70-110) mg/dL
[2024-03-16 16:39] LABS: Glucose,Whole Blood 163 mg/dL (70-110)
[2024-03-16 20:21] LABS: Glucose,Whole Blood 144 mg/dL (70-110)
--- NOTE | 2024-03-16 22:56 | P.PN ---
Subjective Progress Note Date: 03/16/24 Principal diagnosis: Reason for follow-up is urinary tract infection Patient is a 78-year-old female with a past medical history significant for hypertension hyperlipidemia sleep apnea atrial fibrillation patient has been brought into the hospital on 03/04/2024 for evaluation of increasing confusion, initial consult placed for bug bites and concern for possible cellulitis. On today's evaluation that is 03/16/2024,the patient continues to be afebrile the patient is more awake and alert and answer some simple question denies having any headache patient know she is in the hospital no vomiting diarrhea or any other changes reported. No CBC was done today creatinine is 1.63 blood culture remains to be negative Objective - Vital Signs Vital signs: Vital Signs Temp 97.6 F 03/16/24 07:59 Pulse 97 03/16/24 07:59 Resp 14 03/16/24 07:59 BP 122/78 03/16/24 07:59 Pulse Ox 97 03/16/24 07:59 FiO2 Intake & Output 03/15/24 03/16/24 03/16/24 18:59 06:59 18:59 Intake Total 188 Output Total 300 600 Balance -112 -600 Weight 94 kg Intake: IV 20 Invasive Line 3 10 Invasive Line 7 10 Oral 168 Output: Urine 300 600 Other: Voiding Method Indwelling Catheter Indwelling Catheter # Bowel Movements 1 1 - Exam Elderly female lying in bed in no distress Unlabored breathing Patient is more awake alert today - Labs CBC & Chem 7: 03/15/24 08:07 03/16/24 10:20 Labs: Abnormal Lab Results - Last 24 Hours (Table) 03/15/24 03/15/24 03/15/24 Range/Units 08:07 11:29 16:31 Lymphocytes # 0.6 L (1.0-4.8) k/uL POC Glucose (mg/dL) 142 H 153 H (70-110) mg/dL 03/15/24 03/16/24 Range/Units 20:16 05:42 Lymphocytes # (1.0-4.8) k/uL POC Glucose (mg/dL) 165 H 206 H (70-110) mg/dL Assessment and Plan (1) Urinary tract infection Current Visit: Yes Status: Acute Code(s): N39.0 - URINARY TRACT INFECTION, SITE NOT SPECIFIED SNOMED Code(s): 73094869 Plan: This is a telehealth visit 1patient presented to hospital mental status changes likely multifactorial patient did have multiple bug bites to the lower extremity however those are drying out with no evidence of any active cellulitis at the same time the patient did have a chest x-ray with bibasilar infiltrate more likely representing atelectasis clinically not behaving as pneumonia in this patient with no fever or elevated white count 2-patient did have normal procalcitonin however she did have a positive UA 3-patient urine is growing E. coli that is sensitive to Zosyn, patient has shown a clinical improvement and is currently covered with the Zosyn apparently the patient has agreed to go for LP with a have previously refused keeping in mind significant improvement in her mentation clinic suspicious remains to be low for encephalitis but I do not have any issue doing an LP this was discussed with the admitting physician on the phone yesterday Dictation was produced using [employer] dictation software. please excuse any grammatical, word or spelling errors. Time with Patient: Less than 30
[2024-03-17 06:13] LABS: Glucose,Whole Blood 145 mg/dL (70-110)
[2024-03-17 08:24] LABS: African American GFR (CKD) 37 (>60 ml/min/1.73 sqM); Anion Gap 4 mmol/L; Blood Urea Nitrogen 28 mg/dL (7-17); Carbon Dioxide 23 mmol/L (22-30); Chloride 114 mmol/L (98-107); Glucose 146 mg/dL (74-99); Magnesium 1.9 mg/dL (1.6-2.3); Non-African American GFR(CKD) 32 (>60 ml/min/1.73 sqM); Potassium 4.2 mmol/L (3.5-5.1); Sodium 141 mmol/L (137-145)
--- NOTE | 2024-03-17 09:19 | P.PN ---
Subjective Progress Note Date: 03/17/24 Patients mentation has been significantly improved. Undergoing EEG today. Cr improved today with eGFR > 30. Plan today is for MRI of brain w/wo contrast Gen: In NAD, non-toxic HEENT: normocephalic, atraumatic, hearing acuity is intant, mucous membranes moist CVS: perfusing all extremities well, no pitting edema, Respiratory: symmetric chest expansion, no accessory muscle use, GI: soft, NTTP, ND, : no suprapubic tenderness, no CVA tenderness MSK/Derm: no rashes, cyanosis Neuro: CN II-XII intact, no motor weakness, Hospital course: Patient is a 78-year-old female with known hypertension, dyslipidemia, and A-fib who presented to the emergency department with altered mentation for the pre vious 2 weeks. Patient was recently being treated for urinary tract infection with Cipro and then nitrofurantoin. On arrival labs were remarkable for creatinine of 1.21 which appears to be at patient's baseline. She had mildly elevated bilirubin at 2.3, AST 65, and ALT of 60. Urinalysis was negative. Urine drug screen was positive for benzodiazepines. She underwent chest x-ray which showed cardiomegaly and COPD. She underwent CT head which demonstrated no acute intracranial process with remote left periventricular white matter changes consistent with small vessel ischemic disease. She was admitted and subsequently underwent liver ultrasound which demonstrated small right renal cyst. She was followed by neurology and GI. She underwent repeat head CT which again showed no acute process. She underwent EEG which demonstrated moderate to severe background slowing consistent with toxic metabolic encephalopathy. She had carotid Dopplers performed which were nondiagnostic as patient was combative. She developed fluid overload and cardiology was subsequently consulted. It came to light that patient had history of dilated cardiomyopathy and with current ejection fraction 45 to 50%. GI was consulted and the patient had hepatitis serologies performed which were negative, and negative antimitochondrial antibody, and a normal alpha 1 antitrypsin and AFP. B12 and folate were normal. TSH was elevated at 14.9 and hemoglobin A1c was elevated at 8 consistent with new onset diabetes. She developed worsening JANNETH which was felt to be due to cardiorenal syndrome. And nephrology was consulted. Assessment/plan: Acute encephalopathy with history of underlying dementia, undetermined etiology Hypothyroidism -Possible multifocal etiologies including recent ciprofloxacin use, b enzodiazepine use, under treated hypothyroidism, CVA -TSH is mildly elevated, levothyroxine increased to 75 mcg this hospital stay -Neurology following -Infectious disease: Low clinical suspicion for pneumonia or cellulitis -Previous head CT negative for any acute process, EEG consistent with toxic metabolic encephalopathy, repeat EEG today -UA is negative, ammonia negative -YANET negative -syphillus antibody negative Continue supportive care, continue to monitor. Neurology on board, EEG today, MR Brain w/wo contrast Discussed with ID, it's possible to pursue LP, but family would like to defer due to mental status improvement Continue to monitor, continue participate with PT OT. Acute hypoxic respiratory failure Acute on chronic systolic congestive heart failure with ejection fraction 45 to 50% Persistent atrial fibrillation Hypertension -Continue to wean oxygen -Cardiology note reviewed: On metoprolol 150 twice daily, also started on Cardizem 30 TID -Eliquis 5 mg twice daily, Plavix 75 mg daily Persistent atrial fibrillation with RVR: Cardiology on board Acute on chronic congestive heart failure systolic ejection fraction 25% but now up to 45 to 50%. Cardiology following. Eliquis, amiodarone, p.o. Cardizem. Transaminitis associated with hyperbilirubinemia, stable Possibly related to ciprofloxacin use versus hepatic congestion secondary to acute exacerbation of CHF -Patient had been following by GI. They recommend continuing to hold Lipitor. Follow-up with GI as an outpatient basis no further workup needed at this time. Acute kidney injury chronic kidney disease stage III - improving - nephrolopgy recs reviewed: transitioned to lasix PO -Off of Aldactone and Cozaar Newly discovered diabetes -Continue with sliding scale insulin -Follow blood sugars -Will need oral medications on discharge to help with diabetes management but given liver and kidney dysfunction will defer decision of this until later time. Bedbug infestation on arrival -Status post decontamination DVT prophylaxis: eliquis Anticipated discharge date: pending clinical course Discussed with patient's daughter at bedside, continue PT OT, hopefully to discharge to rehab once clinically better. Objective - Vital Signs Vital signs: Vital Signs Temp 97.3 F L 03/17/24 08:49 Pulse 107 H 03/17/24 09:05 Resp 16 03/17/24 08:49 BP 142/99 03/17/24 08:49 Pulse Ox 92 L 03/17/24 09:05 FiO2 Intake & Output 03/16/24 03/17/24 03/17/24 18:59 06:59 18:59 Intake Total 120 Output Total 350 Balance -230 Weight 88 kg Intake: Oral 120 Output: Urine 350 Other: Voiding Method Indwelling Catheter Indwelling Catheter - Labs CBC & Chem 7: 03/15/24 08:07 03/17/24 06:50 Labs: Abnormal Lab Results - Last 24 Hours (Table) 03/16/24 03/16/24 03/16/24 Range/Units 10:20 11:18 16:37 Potassium 3.4 L (3.5-5.1) mmol/L Chloride 113 H (98-107) mmol/L BUN 31 H (7-17) mg/dL Creatinine 1.63 H (0.52-1.04) mg/dL Glucose 149 H (74-99) mg/dL POC Glucose (mg/dL) 152 H 163 H (70-110) mg/dL 03/16/24 03/17/24 03/17/24 Range/Units 20:19 06:10 06:50 Potassium (3.5-5.1) mmol/L Chloride 114 H (98-107) mmol/L BUN 28 H (7-17) mg/dL Creatinine 1.54 H (0.52-1.04) mg/dL Glucose 146 H (74-99) mg/dL POC Glucose (mg/dL) 144 H 145 H (70-110) mg/dL
[2024-03-17] MEDS ORDERED: DILTIAZEM CD 180 MG CAP.ER.24H PO STA (10:40)
[2024-03-17] MEDS: DILTIAZEM CD 120 MG CAP.ER.24H PO SCH ×2 (10:41→16:52)
[2024-03-17] MEDS: FUROSEMIDE 10 MG/ML 4 ML VIAL IV STA (10:51)
[2024-03-17 11:22] LABS: Glucose,Whole Blood 187 mg/dL (70-110)
--- NOTE | 2024-03-17 12:13 | EEG ---
DATE OF SERVICE: 03/17/2024 ELECTROENCEPHALOGRAM REPORT PREAMBLE: This is a 78-year-old female with altered mental status. The patient was diagnosed with UTI. The patient was having hallucinations in the past month. EEG FINDINGS: This is a 21-channel digital EEG recorded with video component, utilizing 10/20 international system with referential bipolar montages. Background consists of moderately well-developed and regulated, predominantly low to moderate amplitude 6 to 7 hertz theta activity seen in posterior head region. Intermittent 2 to 3 hertz delta slowing was also seen sporadically. Background does not seem to be clearly reactive to eye opening or closing. Photic driving response was not seen. Different stages of sleep were not seen. No focal or generalized epileptiform activity was seen. IMPRESSION: This is an abnormal EEG due to background slowing of moderate degree. This is suggestive of generalized cerebral dysfunction as can be seen with toxic metabolic encephalopathy or related to diffuse structural brain abnormality. Clinical correlation is recommended. No epileptiform activity was seen. When compared to the EEG from 03/06/2024, the background has improved. MMODL / IJN: [id number] / [facility]ENTERAdrien
--- NOTE | 2024-03-17 12:40 | P.PN ---
Subjective HISTORY OF PRESENT ILLNESS: This is a 78-year-old female patient of Dr. Garibay with past medical history of atrial tachycardia with RVR, persistent atrial fibrillation, dilated cardiomyopathy with a EF of 25%, coronary artery disease status post stenting, moderate mitral regurgitation. We have been asked to evaluate the patient for A-fib with RVR. Patient was brought into the hospital on 03/04 for altered mental status and has been seen and followed by neurology, GI for elevated liver function test. This morning, patient is minimally responsive to verbal stimuli. She briefly opens her eyes only. EKG A-fib with moderate ventricular rate, telemetry atrial fibrillation with moderately controlled ventricular rate Chest x-ray: Performed 03/07 reveals mild bibasilar infiltrates correlate for pneumonia and atelectasis. Carotid duplex nondiagnostic study WBC 8, hemoglobin 13.2. Sodium 138, potassium 4.3, BUN 25 and creatinine 1.53. A1c 8. Elevated liver function test. TSH 14.9 with free T4 normal at 1.76. Hepatitis panel negative. Urine drug screen positive for benzodiazepines. Home cardiac medications: Eliquis 5 mg twice daily, atorvastatin 40 mg at bedtime, Plavix 75 mg daily, Lasix 40 mg daily, losartan 25 mg at bedtime, Toprol-XL 100 mg daily, Nitrostat as needed, Aldactone 25 mg daily, patient also on levothyroxine 50 mcg daily. Echocardiogram performed on 03/01/2024 reveals EF of 45 to 50%, moderate to severe mitral regurgitation, moderate tricuspid regurgitation, moderately increased pulmonary artery systolic pressure of 49 mmHg. Physiologic pulmonic regurgitation. Electrocardioversion 11/29/2023 for persistent atrial fibrillation and associated cardiomyopathy Electrocardioversion 10/10/2023 for persistent atrial fibrillation Cardiac catheterization 11/07/[address] Ulrich revealed 80% diffuse calcified mid LAD disease, TIMI3 flow, mild CAD in the left circumflex and RCA. Normal left-sided filling pressures. LVEF 25% by echocardiogram. PCI 11/07/[address] Moreira with stenting of the proximal LAD 03/09/2024 Patient is a 78-year-old female who presented to hospital with status A-fib RVR. Patient remains relatively unresponsive today, unable to answer questions or respond to questions. She continues to moan incoherently. Unknown etiology for patient's altered mental status. 03/10/2024 Patient examined this morning at the bedside. Patient's family is present. Patient remains lethargic and unable to answer any questions. Patient remains on IV Lasix 40 mg every 12 hours per primary medicine. Patient remains in atrial fibrillation with a heart rate in the 120s. She is currently on metoprolol 150 mg twice a day. Blood pressure has also been elevated with a systolic in the 160s and a diastolic ranging between [id number]. March 15, 2024 The patient was seen and evaluated this morning. Her mentation has improved significantly. Her pressure has been soft. She is on Lasix IV which I am going to stop and start her on oral diuretics. She is not hypoxic and she seems to be overall you bulimic. Beside that she has no chest pain or chest discomfort. She continues to be in atrial fibrillation with controlled heart rate. She is on oral anticoagulation. The examination is remarkable for irregular rhythm with diminished breathing sounds bilaterally and no edema was noted in the lower extremities March 16, 2024 The patient was seen and evaluated this morning which she continues to have some change in mental status and confusion but hemodynamically she is stable. She still having workup about the change in mental status including MRI of the brain when the creatinine is improving and also possible lumbar puncture. The examination is stable for vital signs with normal second and first heart sounds and clear breathing sounds bilaterally and no edema was noted in the lower extremities March 17, 2024 Patient examined this morning at bedside. Patient's family is present. Patient remains in atrial fibrillation with a heart rate around 105. She denies any chest pain or pressure. She does report feeling mildly short of breath this morning. She also reports having decreased energy. PHYSICAL EXAM: VITAL SIGNS: Reviewed. GENERAL: Well-developed in no acute distress. NECK: Supple. Positive JVD LUNGS: Respirations even and unlabored. Lungs with bilateral crackles HEART: Irregular rate and rhythm. S1 and S2 heard. EXTREMITIES: Normal range of motion. No clubbing or cyanosis. Peripheral pulses intact. Bilateral lower extremity edema noted. ASSESSMENT: Altered mental status Persistent atrial fibrillation with RVR Acute on chronic heart failure with mildly reduced EF, 45-50, previously reduced EF of 25% Transaminitis Acute kidney injury History of atrial tachycardia with RVR Dilated cardiomyopathy with EF of 25% in the past, now 45 to 50% Coronary artery disease status post stenting Moderate mitral regurgitation and moderate tricuspid regurgitation Abnormal TSH PLAN: Give 1 dose of IV Lasix 40 mg then continue with oral diuretics Change Cardizem to Cardizem CD 120 mg daily Continue additional cardiac medications Continue telemetry monitoring Continue amiodarone 400 mg twice a day. Decrease dosage to 200 mg twice a day after 1 week Further recommendations pending patient course Nurse practitioner note has been reviewed by physician. Signing provider agrees with the documented findings, assessment, and plan of care documented by AIRCRAFT MECHANIC as a scribe. Objective - Vital Signs Vital signs: Vital Signs Temp 97.3 F L 03/17/24 08:49 Pulse 90 03/17/24 11:52 Resp 16 03/17/24 11:52 BP 133/81 03/17/24 11:52 Pulse Ox 96 03/17/24 11:52 FiO2 Intake & Output 03/16/24 03/17/24 03/17/24 18:59 06:59 18:59 Intake Total 120 Output Total 350 Balance -230 Weight 88 kg 88 kg Intake: Oral 120 Output: Urine 350 Other: Voiding Method Indwelling Catheter Indwelling Catheter # Bowel Movements 1 - Labs CBC & Chem 7: 03/15/24 08:07 03/17/24 06:50 Labs: Abnormal Lab Results - Last 24 Hours (Table) 03/16/24 03/16/24 03/17/24 Range/Units 16:37 20:19 06:10 Chloride (98-107) mmol/L BUN (7-17) mg/dL Creatinine (0.52-1.04) mg/dL Glucose (74-99) mg/dL POC Glucose (mg/dL) 163 H 144 H 145 H (70-110) mg/dL 03/17/24 03/17/24 Range/Units 06:50 11:20 Chloride 114 H (98-107) mmol/L BUN 28 H (7-17) mg/dL Creatinine 1.54 H (0.52-1.04) mg/dL Glucose 146 H (74-99) mg/dL POC Glucose (mg/dL) 187 H (70-110) mg/dL
--- NOTE | 2024-03-17 14:47 | P.PN ---
Subjective Patient is seen for follow-up for acute kidney injury. currently maintained on low-dose lasix. Serum creatinine at 1.5 today. This is improved from peak of 2.49. Objective - Vital Signs Vital signs: Vital Signs Temp 97.3 F L 03/17/24 08:49 Pulse 90 03/17/24 11:52 Resp 16 03/17/24 11:52 BP 133/81 03/17/24 11:52 Pulse Ox 96 03/17/24 11:52 FiO2 Intake & Output 03/16/24 03/17/24 03/17/24 18:59 06:59 18:59 Intake Total 120 Output Total 350 Balance -230 Weight 88 kg 88 kg Intake: Oral 120 Output: Urine 350 Other: Voiding Method Indwelling Catheter Indwelling Catheter # Bowel Movements 1 - Exam patient is sleeping. She is arousable but does not communicate much. Examination of the heart S1 and S2 Examination of the lungs bilateral breath sounds are heard no crackles are heard Abdomen is soft nontender Examination of lower extremities shows no significant edema HARD TILE SETTER exam shows patient is moving all 4 extremities but does not communicate - Labs CBC & Chem 7: 03/15/24 08:07 03/17/24 06:50 Labs: Abnormal Lab Results - Last 24 Hours (Table) 03/16/24 03/16/24 03/17/24 Range/Units 16:37 20:19 06:10 Chloride (98-107) mmol/L BUN (7-17) mg/dL Creatinine (0.52-1.04) mg/dL Glucose (74-99) mg/dL POC Glucose (mg/dL) 163 H 144 H 145 H (70-110) mg/dL 03/17/24 03/17/24 Range/Units 06:50 11:20 Chloride 114 H (98-107) mmol/L BUN 28 H (7-17) mg/dL Creatinine 1.54 H (0.52-1.04) mg/dL Glucose 146 H (74-99) mg/dL POC Glucose (mg/dL) 187 H (70-110) mg/dL Assessment and Plan Assessment: 1. Acute kidney injury, cardiorenal syndrome and ATN from hemodynamic i nstability. Renal function has improved. UA is unremarkable with 3 WBCs noted. No evidence of obstruction on ultrasound. 2. Chronic kidney disease stage IIIa with baseline creatinine 1.1-1.2 in [facility] and November 2023. 3. A-fib with RVR. On oral amiodarone, Cardizem and Lopressor. Cardiology following. 4. Diabetes mellitus. 5. Acute on chronic systolic CHF with ejection fraction of 25 to 30% with mild to moderate mitral and tricuspid regurgitation and moderate pulmonary hypertension noted on echocardiogram done October 2023. Per cardiology, EF is now 45 to 50%. 6. Volume overload. On IV Lasix. 7. Hypothyroidism maintained on Synthroid. 8. Mild hypernatremia from lack of oral water intake. s/p D5W. Better. 9. E. coli UTI on antibiotics. 10. Hypokalemia from diuresis. Plan: continue with current dose of Lasix. Repeat labs in a.m.
--- NOTE | 2024-03-17 15:09 | P.PN ---
Subjective Progress Note Date: 03/17/24 Principal diagnosis: Reason for follow-up is urinary tract infection Patient is a 78-year-old female with a past medical history significant for hypertension hyperlipidemia sleep apnea atrial fibrillation patient has been brought into the hospital on 03/04/2024 for evaluation of increasing confusion, initial consult placed for bug bites and concern for possible cellulitis. On today's evaluation that is 03/17/2024,the patient remains to be afebrile, patient is on 2 L nasal cannula supplemental oxygen,, patient is more awake and alert and denies any shortness of breath no chest pain or cough.Patient denies having any nausea or vomiting, no abdominal pain and no diarrhea has been reported. Patient did not have CBC done today creatinine is 1.54 blood culture has been negative Objective - Vital Signs Vital signs: Vital Signs Temp 97.3 F L 03/17/24 08:49 Pulse 107 H 03/17/24 09:05 Resp 16 03/17/24 08:49 BP 142/99 03/17/24 08:49 Pulse Ox 92 L 03/17/24 09:05 FiO2 Intake & Output 03/16/24 03/17/24 03/17/24 18:59 06:59 18:59 Intake Total 120 Output Total 350 Balance -230 Weight 88 kg Intake: Oral 120 Output: Urine 350 Other: Voiding Method Indwelling Catheter Indwelling Catheter - Exam Elderly female lying in bed in no distress Unlabored breathing decreased breath sounds at the base Heart S1-S2 regular Abdomen soft no tenderness Patient is more awake alert Exam completed with the help of TOOL MACHINE SHOP SUPERVISOR - Labs CBC & Chem 7: 03/15/24 08:07 03/17/24 06:50 Labs: Abnormal Lab Results - Last 24 Hours (Table) 03/16/24 03/16/24 03/16/24 Range/Units 10:20 11:18 16:37 Potassium 3.4 L (3.5-5.1) mmol/L Chloride 113 H (98-107) mmol/L BUN 31 H (7-17) mg/dL Creatinine 1.63 H (0.52-1.04) mg/dL Glucose 149 H (74-99) mg/dL POC Glucose (mg/dL) 152 H 163 H (70-110) mg/dL 03/16/24 03/17/24 03/17/24 Range/Units 20:19 06:10 06:50 Potassium (3.5-5.1) mmol/L Chloride 114 H (98-107) mmol/L BUN 28 H (7-17) mg/dL Creatinine 1.54 H (0.52-1.04) mg/dL Glucose 146 H (74-99) mg/dL POC Glucose (mg/dL) 144 H 145 H (70-110) mg/dL Assessment and Plan (1) Urinary tract infection Current Visit: Yes Status: Acute Code(s): N39.0 - URINARY TRACT INFECTION, SITE NOT SPECIFIED SNOMED Code(s): 09502102 Plan: This is a telehealth visit 1patient presented to hospital mental status changes likely multifactorial patient did have multiple bug bites to the lower extremity however those are drying out with no evidence of any active cellulitis at the same time the patient did have a chest x-ray with bibasilar infiltrate more likely representing atelectasis clinically not behaving as pneumonia in this patient with no fever or elevated white count 2-patient did have normal procalcitonin however she did have a positive UA 3-patient urine is growing E. coli that is sensitive to Zosyn, patient has shown a clinical improvement and is currently covered with the Zosyn to continue MRI has been ordered to further evaluate her neurological symptoms results will be followed Dictation was produced using [employer] dictation software. please excuse any grammatical, word or spelling errors. Time with Patient: Less than 30
[2024-03-17 16:24] LABS: Glucose,Whole Blood 228 mg/dL (70-110)
[2024-03-17 19:48] LABS: Glucose,Whole Blood 244 mg/dL (70-110)
[2024-03-18 05:48] LABS: Glucose,Whole Blood 139 mg/dL (70-110)
[2024-03-18] MEDS ORDERED: QUEtiapine 25 MG TAB PO PRN (09:11)
--- NOTE | 2024-03-18 09:47 | P.PN ---
Subjective Progress Note Date: 03/18/24 Patients mentation has improved, but she is still quite confused. Believes shes having a third baby at the moment of my evaluation. Gen: In NAD, non-toxic HEENT: normocephalic, atraumatic, hearing acuity is intant, mucous membranes moist CVS: perfusing all extremities well, no pitting edema, Respiratory: symmetric chest expansion, no accessory muscle use, GI: soft, NTTP, ND, : no suprapubic tenderness, no CVA tenderness MSK/Derm: no rashes, cyanosis Neuro: CN II-XII intact, no motor weakness, Hospital course: Patient is a 78-year-old female with known hypertension, dyslipidemia, and A-fib who presented to the emergency department with altered mentation for the previous 2 weeks. Patient was recently being treated for urinary tract infection with Cipro and then nitrofurantoin. On arrival labs were remarkable for creatinine of 1.21 which appears to be at patient's baseline. She had mildly elevated bilirubin at 2.3, AST 65, and ALT of 60. Urinalysis was negative. Urine drug screen was positive for benzodiazepines. She underwent chest x-ray which showed cardiomegaly and COPD. She underwent CT head which demonstrated no acute intracranial process with remote left periventricular white matter changes consistent with small vessel ischemic disease. She was admitted and subsequently underwent liver ultrasound which demonstrated small right renal cyst. She was followed by neurology and GI. She underwent repeat head CT which again showed no acute process. She underwent EEG which demonstrated moderate to severe background slowing consistent with toxic metabolic encephalopathy. She had carotid Dopplers performed which were nondiagnostic as patient was combative. She developed fluid overload and cardiology was subsequently consulted. It came to light that patient had history of dilated cardiomyopathy and with current ejection fraction 45 to 50%. GI was consulted and the patient had hepatitis serologies performed which were negative, and negative antimitochondrial antibody, and a normal alpha 1 antitrypsin and AFP. B12 and folate were normal. TSH was elevated at 14.9 and hemoglobin A1c was elevated at 8 consistent with new onset diabetes. She developed worsening JANNETH which was felt to be due to cardiorenal syndrome. And nephrology was consulted. Assessment/plan: Acute encephalopathy with history of underlying dementia, undetermined etiology Hypothyroidism -Possible multifocal etiologies including recent ciprofloxacin use, benzodiazepine use, under treated hypothyroidism, CVA -TSH is mildly elevated, levothyroxine increased to 75 mcg this hospital stay -Neurology following -Infectious disease: Low clinical suspicion for pneumonia or cellulitis -Previous head CT negative for any acute process, repeat EEG consistent with toxic metabolic encephalopathy, -UA is negative, ammonia negative -YANET negative -syphillus antibody negative Continue supportive care, continue to monitor. Neurology on board, MR Brain w/wo contrast today Discussed with ID, it's possible to pursue LP, but family would like to defer due to mental status improvement Continue to monitor, continue participate with PT OT. -adjusted seroquel as follows: increased to 25mg qHS, added 12.5mg HS PRN Acute hypoxic respiratory failure Acute on chronic systolic congestive heart failure with ejection fraction 45 to 50% Persistent atrial fibrillation Hypertension -Continue to wean oxygen -Cardiology note reviewed: On metoprolol 150 twice daily, also started on Cardizem 30 TID -Eliquis 5 mg twice daily, Plavix 75 mg daily Persistent atrial fibrillation with RVR: Cardiology on board Acute on chronic congestive heart failure systolic ejection fraction 25% but now up to 45 to 50%. Cardiology following. Eliquis, amiodarone, p.o. Cardizem. Transaminitis associated with hyperbilirubinemia, stable Possibly related to ciprofloxacin use versus hepatic congestion secondary to acute exacerbation of CHF -Patient had been following by GI. They recommend continuing to hold Lipitor. Follow-up with GI as an outpatient basis no further workup needed at this time. Acute kidney injury chronic kidney disease stage III - improving - nephrolopgy recs reviewed: transitioned to lasix PO -Off of Aldactone and Cozaar Newly discovered diabetes -Continue with sliding scale insulin -Follow blood sugars -Will need oral medications on discharge to help with diabetes management but given liver and kidney dysfunction will defer decision of this until later time. Bedbug infestation on arrival -Status post decontamination DVT prophylaxis: eliquis Anticipated discharge date: pending clinical course Discussed with patient's daughter at bedside, continue PT OT, hopefully to discharge to rehab once clinically better. Objective - Vital Signs Vital signs: Vital Signs Temp 97.4 F L 03/18/24 07:16 Pulse 99 03/18/24 07:16 Resp 16 03/18/24 07:16 BP 139/77 03/18/24 07:16 Pulse Ox 97 03/18/24 07:16 FiO2 Intake & Output 03/17/24 03/18/24 03/18/24 18:59 06:59 18:59 Intake Total 118 Output Total 950 450 Balance -832 -450 Weight 88 kg 85 kg Intake: Oral 118 Output: Urine 950 450 Other: Voiding Method Indwelling Catheter Indwelling Catheter # Bowel Movements 1 - Labs CBC & Chem 7: 03/15/24 08:07 03/17/24 06:50 Labs: Abnormal Lab Results - Last 24 Hours (Table) 03/17/24 03/17/24 03/17/24 Range/Units 11:20 16:22 19:47 POC Glucose (mg/dL) 187 H 228 H 244 H (70-110) mg/dL 03/18/24 Range/Units 05:47 POC Glucose (mg/dL) 139 H (70-110) mg/dL
[2024-03-18 09:53] LABS: Anisocytosis Slight; Basophils # (A) 0.1 k/uL (0-0.2); Basophils % (A) 1 %; Eosinophils # (A) 0.1 k/uL (0-0.7); Eosinophils % (A) 2 %; HCT 49.1 % (34.0-46.0); HGB 14.5 gm/dL (11.4-16.0); Hypochromasia Moderate; Lymphocytes # (A) 0.6 k/uL (1.0-4.8); Lymphocytes % (A) 7 %; MCH 30.9 pg (25.0-35.0); MCHC 29.6 g/dL (31.0-37.0); MCV 104.1 fL (80.0-100.0); Macrocytosis Moderate; Mean Platelet Volume 9.3; Monocytes # (A) 0.5 k/uL (0-1.0); Monocytes % (A) 6 %; Neutrophils # (A) 6.6 k/uL (1.3-7.7); Neutrophils % (A) 83 %; Platelet Count 232 k/uL (150-450); RBC 4.71 m/uL (3.80-5.40); RDW 16.9 % (11.5-15.5); WBC 7.9 k/uL (3.8-10.6)
--- NOTE | 2024-03-18 10:02 | P.PN ---
Subjective Progress Note Date: 03/17/24 Patient was seen for a follow-up. Patient's daughter and son were both present today. Dr. Joe Mayes has been following up on the patient over the last week. Please refer to his notes for details. Patient is much more alert and awake, still very confused, delirious. Please refer to examination below. Patient appears to have some discomfort in the abdomen, as she is rubbing her belly. Ho wever when asked if she has any soreness anywhere, she denies. Patient very restless, delirious. Nephrology has cleared for MRI of the brain with contrast. Patient is being treated for an acute UTI. Objective - Vital Signs Vital signs: Vital Signs Temp 97.3 F L 03/17/24 15:04 Pulse 98 03/17/24 15:04 Resp 16 03/17/24 15:04 BP 161/101 03/17/24 15:04 Pulse Ox 95 03/17/24 15:04 FiO2 Intake & Output 03/16/24 03/17/24 03/17/24 18:59 06:59 18:59 Intake Total 120 118 Output Total 350 Balance -230 118 Weight 88 kg 88 kg Intake: Oral 120 118 Output: Urine 350 Other: Voiding Method Indwelling Catheter Indwelling Catheter Indwelling Catheter # Bowel Movements 1 - Exam Patient at present is very delirious, still appears encephalopathic. She is however fully alert and awake with eyes open. Previously she used to keep her eyes closed and would not talk at all. Patient does not know the name of [employer] president, says "Nicho". She does not know the current month, states "15, 17". On asking the year, patient states "3". Her speech otherwise is clear. She at times appears somewhat irritable. On cranial examination pupils are equal, round and reacting. Patient did not have concentration enough to check for visual arthur. Face is symmetric and tongue protrudes the midline. On muscle strength testing, the strength is completely normal in the arms and legs. Sensory was not able to be checked because of mental status. No obvious ataxia. - Labs CBC & Chem 7: 03/15/24 08:07 03/17/24 06:50 Labs: Abnormal Lab Results - Last 24 Hours (Table) 03/16/24 03/16/24 03/17/24 Range/Units 16:37 20:19 06:10 Chloride (98-107) mmol/L BUN (7-17) mg/dL Creatinine (0.52-1.04) mg/dL Glucose (74-99) mg/dL POC Glucose (mg/dL) 163 H 144 H 145 H (70-110) mg/dL 03/17/24 03/17/24 Range/Units 06:50 11:20 Chloride 114 H (98-107) mmol/L BUN 28 H (7-17) mg/dL Creatinine 1.54 H (0.52-1.04) mg/dL Glucose 146 H (74-99) mg/dL POC Glucose (mg/dL) 187 H (70-110) mg/dL Assessment and Plan Assessment: * Altered mental status, likely due to toxic metabolic encephalopathy. Patient diagnosed with acute UTI. 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 * Elevated hemoglobin A1c 8.0, probable with new onset diabetes. * Acute kidney injury, today further better * Elevated liver enzymes, today further better * Congestive heart failure with EF 25% * COPD * Hypothyroidism, getting worse * Poor social condition with bedbugs infestation. Status post decontamination Plan: * Patient's level of consciousness has much improved, but still very encephalopathic, confused, disoriented. * Patient to undergo MRI of the brain in the morning. * Patient now diagnosed with acute E. coli UTI, started on Zosyn. ID following. * Patient's renal functions, and liver functions have improved, but still abnormal. * GI has seen the patient, ordered labs. Reviewed notes. * Carotid Doppler could not be performed as patient was not cooperative. * Repeat EEG performed today was abnormal due to background slowing of moderate degree. This is suggestive of generalized cerebral dysfunction as can be seen with toxic metabolic encephalopathy or related to diffuse structural brain abnormality. Clinical correlation is recommended. No epileptiform activity was seen. When compared to the EEG from 03/06/2024, the background has improved. * B12 1659, folate 30.9, MMA, B6 11. Ammonia is < 9. * Hemoglobin A1c 8.0, consistent with new onset diabetes. Patient does have history of borderline diabetes in the past. Will defer to IM. * Patient has atrial fibrillation, currently on Eliquis 5 mg twice daily and Plavix. These will be continued. * Patient's thyroid functions are abnormal. We will defer to IM. * Treatment of other medical conditions as per IM. * Discussed with family members in detail.
[2024-03-18 10:05] LABS: African American GFR (CKD) 37 (>60 ml/min/1.73 sqM); Anion Gap 2 mmol/L; Blood Urea Nitrogen 27 mg/dL (7-17); Calcium 9.1 mg/dL (8.4-10.2); Carbon Dioxide 28 mmol/L (22-30); Chloride 112 mmol/L (98-107); Glucose 164 mg/dL (74-99); Magnesium 1.9 mg/dL (1.6-2.3); Non-African American GFR(CKD) 32 (>60 ml/min/1.73 sqM); Potassium 3.4 mmol/L (3.5-5.1); Sodium 142 mmol/L (137-145)
[2024-03-18 11:36] LABS: Glucose,Whole Blood 162 mg/dL (70-110)
[2024-03-18] MEDS ORDERED: Potassium Replacement Protocol 1 EACH MISC MISCELLANE PRN (11:42)
[2024-03-18] MEDS: POTASSIUM CHLORIDE ER 20 MEQ TAB.ER PO SCH (12:27)
--- NOTE | 2024-03-18 12:46 | P.PN ---
Subjective HISTORY OF PRESENT ILLNESS: This is a 78-year-old female patient of Dr. Garibay with past medical history of atrial tachycardia with RVR, persistent atrial fibrillation, dilated cardiomyopathy with a EF of 25%, coronary artery disease status post stenting, moderate mitral regurgitation. We have been asked to evaluate the patient for A-fib with RVR. Patient was brought into the hospital on 03/04 for altered mental status and has been seen and followed by neurology, GI for elevated liver function test. This morning, patient is minimally responsive to verbal stimuli. She briefly opens her eyes only. EKG A-fib with moderate ventricular rate, telemetry atrial fibrillation with moderately controlled ventricular rate Chest x-ray: Performed 03/07 reveals mild bibasilar infiltrates correlate for pneumonia and atelectasis. Carotid duplex nondiagnostic study WBC 8, hemoglobin 13.2. Sodium 138, potassium 4.3, BUN 25 and creatinine 1.53. A1c 8. Elevated liver function test. TSH 14.9 with free T4 normal at 1.76. Hepatitis panel negative. Urine drug screen positive for benzodiazepines. Home cardiac medications: Eliquis 5 mg twice daily, atorvastatin 40 mg at bedtime, Plavix 75 mg daily, Lasix 40 mg daily, losartan 25 mg at bedtime, Toprol-XL 100 mg daily, Nitrostat as needed, Aldactone 25 mg daily, patient also on levothyroxine 50 mcg daily. Echocardiogram performed on 03/01/2024 reveals EF of 45 to 50%, moderate to severe mitral regurgitation, moderate tricuspid regurgitation, moderately increased pulmonary artery systolic pressure of 49 mmHg. Physiologic pulmonic regurgitation. Electrocardioversion 11/29/2023 for persistent atrial fibrillation and associated cardiomyopathy Electrocardioversion 10/10/2023 for persistent atrial fibrillation Cardiac catheterization 11/07/[address] Ulrich revealed 80% diffuse calcified mid LAD disease, TIMI3 flow, mild CAD in the left circumflex and RCA. Normal left-sided filling pressures. LVEF 25% by echocardiogram. PCI 11/07/[address] Moreira with stenting of the proximal LAD 03/09/2024 Patient is a 78-year-old female who presented to hospital with status A-fib RVR. Patient remains relatively unresponsive today, unable to answer questions or respond to questions. She continues to moan incoherently. Unknown etiology for patient's altered mental status. 03/10/2024 Patient examined this morning at the bedside. Patient's family is present. Patient remains lethargic and unable to answer any questions. Patient remains on IV Lasix 40 mg every 12 hours per primary medicine. Patient remains in atrial fibrillation with a heart rate in the 120s. She is currently on metoprolol 150 mg twice a day. Blood pressure has also been elevated with a systolic in the 160s and a diastolic ranging between [id number]. March 15, 2024 The patient was seen and evaluated this morning. Her mentation has improved significantly. Her pressure has been soft. She is on Lasix IV which I am going to stop and start her on oral diuretics. She is not hypoxic and she seems to be overall you bulimic. Beside that she has no chest pain or chest discomfort. She continues to be in atrial fibrillation with controlled heart rate. She is on oral anticoagulation. The examination is remarkable for irregular rhythm with diminished breathing sounds bilaterally and no edema was noted in the lower extremities March 16, 2024 The patient was seen and evaluated this morning which she continues to have some change in mental status and confusion but hemodynamically she is stable. She still having workup about the change in mental status including MRI of the brain when the creatinine is improving and also possible lumbar puncture. The examination is stable for vital signs with normal second and first heart sounds and clear breathing sounds bilaterally and no edema was noted in the lower extremities March 17, 2024 Patient examined this morning at bedside. Patient's family is present. Patient remains in atrial fibrillation with a heart rate around 105. She denies any chest pain or pressure. She does report feeling mildly short of breath this morning. She also reports having decreased energy. 03/18/2024 Patient examined this morning at the bedside. Patient's family is present. Patient currently denies chest pain or pressure. She denies shortness of breath. She remains in atrial fibrillation with controlled ventricular rate. Vital signs are stable. PHYSICAL EXAM: VITAL SIGNS: Reviewed. GENERAL: Well-developed in no acute distress. NECK: Supple. Positive JVD LUNGS: Respirations even and unlabored. Lungs with bilateral crackles HEART: Irregular rate and rhythm. S1 and S2 heard. EXTREMITIES: Normal range of motion. No clubbing or cyanosis. Peripheral pulses intact. Bilateral lower extremity edema noted. ASSESSMENT: Altered mental status Persistent atrial fibrillation with RVR Acute on chronic heart failure with mildly reduced EF, 45-50, previously reduced EF of 25% Transaminitis Acute kidney injury History of atrial tachycardia with RVR Dilated cardiomyopathy with EF of 25% in the past, now 45 to 50% Coronary artery disease status post stenting Moderate mitral regurgitation and moderate tricuspid regurgitation Abnormal TSH PLAN: Continue current cardiac medications Continue telemetry monitoring Continue amiodarone 400 mg twice a day. Decrease dosage to 200 mg twice a day after 1 week No further inpatient recommendations from a cardiac standpoint We will sign off. Please reconsult if needed. Nurse practitioner note has been reviewed by physician. Signing provider agrees with the documented findings, assessment, and plan of care documented by ADULT SPECIALIST as a scribe. Objective - Vital Signs Vital signs: Vital Signs Temp 97.4 F L 03/18/24 07:16 Pulse 80 03/18/24 11:29 Resp 16 03/18/24 11:29 BP 151/83 03/18/24 11:29 Pulse Ox 92 L 03/18/24 11:29 FiO2 Intake & Output 03/17/24 03/18/24 03/18/24 18:59 06:59 18:59 Intake Total 118 Output Total 950 450 800 Balance -832 -450 -800 Weight 88 kg 85 kg Intake: Oral 118 Output: Urine 950 450 800 Other: Voiding Method Indwelling Catheter Indwelling Catheter # Bowel Movements 1 - Labs CBC & Chem 7: 03/18/24 09:16 03/18/24 09:16 Labs: Abnormal Lab Results - Last 24 Hours (Table) 03/17/24 03/17/24 03/18/24 Range/Units 16:22 19:47 05:47 Hct (34.0-46.0) % MCV (80.0-100.0) fL MCHC (31.0-37.0) g/dL RDW (11.5-15.5) % Lymphocytes # (1.0-4.8) k/uL Potassium (3.5-5.1) mmol/L Chloride (98-107) mmol/L BUN (7-17) mg/dL Creatinine (0.52-1.04) mg/dL Glucose (74-99) mg/dL POC Glucose (mg/dL) 228 H 244 H 139 H (70-110) mg/dL 03/18/24 03/18/24 03/18/24 Range/Units 09:16 09:16 11:34 Hct 49.1 H (34.0-46.0) % MCV 104.1 H (80.0-100.0) fL MCHC 29.6 L (31.0-37.0) g/dL RDW 16.9 H (11.5-15.5) % Lymphocytes # 0.6 L (1.0-4.8) k/uL Potassium 3.4 L (3.5-5.1) mmol/L Chloride 112 H (98-107) mmol/L BUN 27 H (7-17) mg/dL Creatinine 1.56 H (0.52-1.04) mg/dL Glucose 164 H (74-99) mg/dL POC Glucose (mg/dL) 162 H (70-110) mg/dL
--- NOTE | 2024-03-18 12:55 | P.PN ---
Subjective Patient is seen for follow-up for acute kidney injury. currently maintained on low-dose lasix. Serum creatinine staying at 1.5 . This is improved from peak of 2.49. Objective - Vital Signs Vital signs: Vital Signs Temp 97.4 F L 03/18/24 07:16 Pulse 80 03/18/24 11:29 Resp 16 03/18/24 11:29 BP 151/83 03/18/24 11:29 Pulse Ox 92 L 03/18/24 11:29 FiO2 Intake & Output 03/17/24 03/18/24 03/18/24 18:59 06:59 18:59 Intake Total 118 Output Total 950 450 800 Balance -832 -450 -800 Weight 88 kg 85 kg Intake: Oral 118 Output: Urine 950 450 800 Other: Voiding Method Indwelling Catheter Indwelling Catheter # Bowel Movements 1 - Exam patient is sleeping. She is arousable but does not communicate much. Examination of the heart S1 and S2 Examination of the lungs bilateral breath sounds are heard no crackles are heard Abdomen is soft nontender Examination of lower extremities shows no significant edema [employer]ATOR exam shows patient is moving all 4 extremities but does not communicate - Labs CBC & Chem 7: 03/18/24 09:16 03/18/24 09:16 Labs: Abnormal Lab Results - Last 24 Hours (Table) 03/17/24 03/17/24 03/18/24 Range/Units 16:22 19:47 05:47 Hct (34.0-46.0) % MCV (80.0-100.0) fL MCHC (31.0-37.0) g/dL RDW (11.5-15.5) % Lymphocytes # (1.0-4.8) k/uL Potassium (3.5-5.1) mmol/L Chloride (98-107) mmol/L BUN (7-17) mg/dL Creatinine (0.52-1.04) mg/dL Glucose (74-99) mg/dL POC Glucose (mg/dL) 228 H 244 H 139 H (70-110) mg/dL 03/18/24 03/18/24 03/18/24 Range/Units 09:16 09:16 11:34 Hct 49.1 H (34.0-46.0) % MCV 104.1 H (80.0-100.0) fL MCHC 29.6 L (31.0-37.0) g/dL RDW 16.9 H (11.5-15.5) % Lymphocytes # 0.6 L (1.0-4.8) k/uL Potassium 3.4 L (3.5-5.1) mmol/L Chloride 112 H (98-107) mmol/L BUN 27 H (7-17) mg/dL Creatinine 1.56 H (0.52-1.04) mg/dL Glucose 164 H (74-99) mg/dL POC Glucose (mg/dL) 162 H (70-110) mg/dL Assessment and Plan Assessment: 1. Acute kidney injury, cardiorenal syndrome and ATN from hemodynamic instability. Renal function has improved. UA is unremarkable with 3 WBCs noted. No evidence of obstruction on ultrasound. 2. Chronic kidney disease stage IIIa with baseline creatinine 1.1-1.2 in October and November 2023. 3. A-fib with RVR. On oral amiodarone, Cardizem and Lopressor. Cardiology following. 4. Diabetes mellitus. 5. Acute on chronic systolic CHF with ejection fraction of 25 to 30% with mild to moderate mitral and tricuspid regurgitation and moderate pulmonary hypertension noted on echocardiogram done October 2023. Per cardiology, EF is now 45 to 50%. 6. Volume overload. On oral Lasix. 7. Hypothyroidism maintained on Synthroid. 8. Mild hypernatremia from lack of oral water intake. s/p D5W. Better. 9. E. coli UTI on antibiotics. 10. Hypokalemia from diuresis. Plan: continue with current dose of Lasix. Repeat labs in a.m. Replace potassium
--- NOTE | 2024-03-18 14:00 | P.PN ---
Subjective Progress Note Date: 03/18/24 Principal diagnosis: Reason for follow-up is urinary tract infection Patient is a 78-year-old female with a past medical history significant for hypertension hyperlipidemia sleep apnea atrial fibrillation patient has been brought into the hospital on 03/04/2024 for evaluation of increasing confusion, initial consult placed for bug bites and concern for possible cellulitis. On today's evaluation that is 03/18/2024, the patient continues to be afebrile, the patient is on room air and breathing comfortably, the Pt has been mention patient has been sleeping mostly today however the patient is arousable and did not answer some simple question no vomiting or diarrhea has been reported. Patient white count is 7.8, creatinine is 1.56 Objective - Vital Signs Vital signs: Vital Signs Temp 97.4 F L 03/18/24 07:16 Pulse 99 03/18/24 07:16 Resp 16 03/18/24 07:16 BP 139/77 03/18/24 07:16 Pulse Ox 97 03/18/24 07:16 FiO2 Intake & Output 03/17/24 03/18/24 03/18/24 18:59 06:59 18:59 Intake Total 118 Output Total 950 450 Balance -832 -450 Weight 88 kg 85 kg Intake: Oral 118 Output: Urine 950 450 Other: Voiding Method Indwelling Catheter Indwelling Catheter # Bowel Movements 1 - Exam Elderly female lying in bed in no distress Unlabored breathing decreased breath sounds at the base Heart S1-S2 regular Abdomen soft no tenderness Patient is more awake alert Exam completed with the help of BIOCHEMISTRY SPECIALIST - Labs CBC & Chem 7: 03/18/24 09:16 03/18/24 09:16 Labs: Abnormal Lab Results - Last 24 Hours (Table) 03/17/24 03/17/24 03/17/24 Range/Units 11:20 16:22 19:47 POC Glucose (mg/dL) 187 H 228 H 244 H (70-110) mg/dL 03/18/24 Range/Units 05:47 POC Glucose (mg/dL) 139 H (70-110) mg/dL Assessment and Plan (1) Urinary tract infection Current Visit: Yes Status: Acute Code(s): N39.0 - URINARY TRACT INFECTION, SITE NOT SPECIFIED SNOMED Code(s): 22733071 Plan: This is a telehealth visit 1patient presented to hospital mental status changes likely multifactorial patient did have multiple bug bites to the lower extremity however those are drying out with no evidence of any active cellulitis at the same time the patient did have a chest x-ray with bibasilar infiltrate more likely representing atelectasis clinically not behaving as pneumonia in this patient with no fever or elevated white count 2-patient did have normal procalcitonin however she did have a positive UA 3-patient urine is growing E. coli that is sensitive to Zosyn, patient did have some improvement in mentation LP has been put on hold patient is rescheduled for MRI today results will be followed Dictation was produced using [employer] dictation software. please excuse any grammatical, word or spelling errors. Time with Patient: Less than 30
[2024-03-18] MEDS: HALOPERIDOL LACTATE 5 MG/ML 1 ML VIAL IVP PRN (15:51)
--- NOTE | 2024-03-18 16:39 | MR ---
EXAMINATION TYPE: MR brain wo/w con DATE OF EXAM: 03/18/2024 COMPARISON: CT brain dated earlier HISTORY: Encephalopathy. TECHNIQUE: Multiplanar, multisequence images of the brain and brainstem is performed without and with IV contras t, utilizing 9 mL intravenous Gadavist . FINDINGS: Exam slightly suboptimal with motion examination. Diffusion weighted images demonstrate no evidence of a recent infarct or other diffusion abnormality. There is mild ventricular and sulcal pr ominence. There is mild low attenuation in the periventricular white matter. Midline structures demonstrate normal morphology. The craniocervical junction appears within normal limits. Post contrast images demonstrate no abnormal enhancement. The dural venous sinuses appear pa tent. Bilateral aphakia is present. Visualized sinuses are clear.. IMPRESSION: Suboptimal study with motion artifact. 1. No MRI evidence for recent infarct. 2. Mild diffuse age-related cerebral atrophy and chronic small vessel ischemic changes are redemonstr ated. No suspicious enhancement noted.
[2024-03-18 17:05] LABS: Glucose,Whole Blood 216 mg/dL (70-110)
[2024-03-18 20:06] LABS: Glucose,Whole Blood 277 mg/dL (70-110)
[2024-03-18] MEDS: MEMANTINE 5 MG TAB PO SCH (21:58)
[2024-03-18] MEDS: QUEtiapine 25 MG TAB PO SCH (22:02)
[2024-03-19 05:22] LABS: Glucose,Whole Blood 178 mg/dL (70-110)
[2024-03-19 08:45] LABS: Anisocytosis Slight; Basophils # (A) 0.1 k/uL (0-0.2); Basophils % (A) 1 %; Eosinophils # (A) 0.1 k/uL (0-0.7); Eosinophils % (A) 1 %; HCT 51.4 % (34.0-46.0); HGB 15.4 gm/dL (11.4-16.0); Hypochromasia Moderate; Lymphocytes # (A) 0.7 k/uL (1.0-4.8); Lymphocytes % (A) 9 %; MCH 30.7 pg (25.0-35.0); MCV 102.1 fL (80.0-100.0); Macrocytosis Moderate; Mean Platelet Volume 9.6; Monocytes # (A) 0.6 k/uL (0-1.0); Monocytes % (A) 7 %; Neutrophils % (A) 82 %; Platelet Count 303 k/uL (150-450); RBC 5.03 m/uL (3.80-5.40); RDW 17.5 % (11.5-15.5); WBC 8.5 k/uL (3.8-10.6)
[2024-03-19 09:11] LABS: African American GFR (CKD) 35 (>60 ml/min/1.73 sqM); Anion Gap 4 mmol/L; Blood Urea Nitrogen 24 mg/dL (7-17); Calcium 9.4 mg/dL (8.4-10.2); Carbon Dioxide 31 mmol/L (22-30); Chloride 111 mmol/L (98-107); Glucose 124 mg/dL (74-99); Magnesium 1.9 mg/dL (1.6-2.3); Non-African American GFR(CKD) 31 (>60 ml/min/1.73 sqM); Potassium 3.8 mmol/L (3.5-5.1); Sodium 146 mmol/L (137-145)
--- NOTE | 2024-03-19 11:34 | P.PN ---
Subjective Progress Note Date: 03/18/24 Patient was seen for a follow-up. Patient's daughter and son were both present today. Patient had undergone MRI of the brain with and without contrast today. Patient was given Haldol 2 mg IV, therefore is very groggy. Will examination deferred. Patient is being treated for an acute UTI. Objective - Vital Signs Vital signs: Vital Signs Temp 97.4 F L 03/18/24 07:16 Pulse 89 03/18/24 16:29 Resp 16 03/18/24 16:29 BP 127/90 03/18/24 16:29 Pulse Ox 94 L 03/18/24 16:29 FiO2 Intake & Output 03/17/24 03/18/24 03/18/24 18:59 06:59 18:59 Intake Total 118 Output Total 950 450 800 Balance -832 -450 -800 Weight 88 kg 85 kg Intake: Oral 118 Output: Urine 950 450 800 Other: Voiding Method Indwelling Catheter Indwelling Catheter Indwelling Catheter # Bowel Movements 1 - Exam 03/18/2024: Patient asleep at this time. Detailed examination deferred. Patient's neck is supple. No rigidity. 03/17/2024: Patient at present is very delirious, still appears encephalopathic. She is however fully alert and awake with eyes open. Previously she used to carlos p her eyes closed and would not talk at all. Patient does not know the name of current president. Patient was able to tell name of her son "Nicho" however not able to tell name of her daughter. She does not know the current month, states "15th, 17th". On asking the year, patient states "3". Her speech otherwise is clear. She at times appears somewhat irritable. On cranial examination pupils are equal, round and reacting. Patient did not have concentration enough to check for visual arthur. Face is symmetric and tongue protrudes the midline. On muscle strength testing, the strength is completely normal in the arms and legs. Sensory was not able to be checked because of mental status. No obvious ataxia. - Labs CBC & Chem 7: 03/19/24 07:44 03/19/24 07:44 Labs: Abnormal Lab Results - Last 24 Hours (Table) 03/17/24 03/18/24 03/18/24 Range/Units 19:47 05:47 09:16 Hct 49.1 H (34.0-46.0) % MCV 104.1 H (80.0-100.0) fL MCHC 29.6 L (31.0-37.0) g/dL RDW 16.9 H (11.5-15.5) % Lymphocytes # 0.6 L (1.0-4.8) k/uL Potassium (3.5-5.1) mmol/L Chloride (98-107) mmol/L BUN (7-17) mg/dL Creatinine (0.52-1.04) mg/dL Glucose (74-99) mg/dL POC Glucose (mg/dL) 244 H 139 H (70-110) mg/dL 03/18/24 03/18/24 Range/Units 09:16 11:34 Hct (34.0-46.0) % MCV (80.0-100.0) fL MCHC (31.0-37.0) g/dL RDW (11.5-15.5) % Lymphocytes # (1.0-4.8) k/uL Potassium 3.4 L (3.5-5.1) mmol/L Chloride 112 H (98-107) mmol/L BUN 27 H (7-17) mg/dL Creatinine 1.56 H (0.52-1.04) mg/dL Glucose 164 H (74-99) mg/dL POC Glucose (mg/dL) 162 H (70-110) mg/dL Assessment and Plan Assessment: * Altered mental status, likely due to toxic metabolic encephalopathy. Patient diagnosed with acute UTI. * Probable underlying dementia. 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 * Elevated hemoglobin A1c 8.0, probable with new onset diabetes. * Acute kidney injury, today further better * Elevated liver enzymes, today further better * Congestive heart failure with EF 25% * COPD * Hypothyroidism, getting worse * Poor social condition with bedbugs infestation. Status post decontamination Plan: * Patient's level of consciousness has much improved, but still very encephalopathic, confused, disoriented. I discussed with patient's family in detail. It appears patient does have history of progressive memory loss going on for almost 1 year. She has been forgetful. Suspect patient probably has some component of underlying dementia. As patient's condition is not improving, we will empirically start Namenda 5 mg twice daily. Possible side effects were discussed. Primary he is also started patient on Seroquel. * Also discussed about potential for lumbar puncture. Patient's neck is supple. Her temperatures are normal. White cells are normal. Chances of intracranial infection is very low due to reasons mentioned above. In order to perform lumbar puncture patient has to be put on hold on Eliquis and Plavix. As there is very low index of suspicion for any intracranial infection, therefore family did not want to pursue lumbar puncture. * MRI of the brain with and without contrast was suboptimal study with motion artifact. No MRI evidence for recent infarct. Mild diffuse age-related cerebral atrophy and chronic small vessel ischemic change artery redemonstrated. No suspicious enhancement noted. I personally reviewed MRI agree with the findings. * Patient now diagnosed with acute E. coli UTI, started on Zosyn. ID following. * Patient's renal functions, and liver functions have improved, but still abnormal. * GI has seen the patient, ordered labs. Reviewed notes. * Carotid Doppler could not be performed as patient was not cooperative. * Repeat EEG 03/17/2024 was abnormal due to background slowing of moderate degree. This is suggestive of generalized cerebral dysfunction as can be seen with toxic metabolic encephalopathy or related to diffuse structural brain abnormality. Clinical correlation is recommended. No epileptiform activity was seen. When compared to the EEG from 03/06/2024, the background has improved. * B12 1659, folate 30.9, MMA, B6 11. Ammonia is < 9. * Hemoglobin A1c 8.0, consistent with new onset diabetes. Patient does have history of borderline diabetes in the past. Will defer to IM. * Patient has atrial fibrillation, currently on Eliquis 5 mg twice daily and Plavix. These will be continued. * Patient's thyroid functions are abnormal. We will defer to IM. * Treatment of other medical conditions as per IM. * Discussed with family members in detail.
[2024-03-19 11:42] LABS: Glucose,Whole Blood 122 mg/dL (70-110)
--- NOTE | 2024-03-19 12:22 | P.PN ---
Subjective Progress Note Date: 03/19/24 Patients mentation has improved, but she is still quite confused. Discussed with son at bedside today, we will discontinue zuniga catheter and IV, as well as abx, and see if that improves. She was also started on namenda, and had seroquel increased. Gen: In NAD, non-toxic HEENT: normocephalic, atraumatic, hearing acuity is intant, mucous membranes moist CVS: perfusing all extremities well, no pitting edema, Respiratory: symmetric chest expansion, no accessory muscle use, GI: soft, NTTP, ND, : no suprapubic tenderness, no CVA tenderness MSK/Derm: no rashes, cyanosis Neuro: CN II-XII intact, no motor weakness, Hospital course: Patient is a 78-year-old female with known hypertension, dyslipidemia, and A-fib who presented to the emergency department with altered mentation for the previous 2 weeks. Patient was recently being treated for urinary tract infection with Cipro and then nitrofurantoin. On arrival labs were remarkable for creatinine of 1.21 which appears to be at patient's baseline. She had mildly elevated bilirubin at 2.3, AST 65, and ALT of 60. Urinalysis was negative. Urine drug screen was positive for benzodiazepines. She underwent chest x-ray which showed cardiomegaly and COPD. She underwent CT head which demonstrated no acute intracranial process with remote left periventricular white matter changes consistent with small vessel ischemic disease. She was ad mitted and subsequently underwent liver ultrasound which demonstrated small right renal cyst. She was followed by neurology and GI. She underwent repeat head CT which again showed no acute process. She underwent EEG which demonstrated moderate to severe background slowing consistent with toxic me tabolic encephalopathy. She had carotid Dopplers performed which were nondiagnostic as patient was combative. She developed fluid overload and cardiology was subsequently consulted. It came to light that patient had history of dilated cardiomyopathy and with current ejection fraction 45 to 50%. GI was consulted and the patient had hepatitis serologies performed which were negative, and negative antimitochondrial antibody, and a normal alpha 1 antitrypsin and AFP. B12 and folate were normal. TSH was elevated at 14.9 and hemoglobin A1c was elevated at 8 consistent with new onset diabetes. She developed worsening JANNETH which was felt to be due to cardiorenal syndrome. And nephrology was consulted. Assessment/plan: Acute encephalopathy with history of underlying dementia, undetermined etiology Hypothyroidism -Possible multifocal etiologies including recent ciprofloxacin use, benzodi azepine use, under treated hypothyroidism, CVA -TSH is mildly elevated, levothyroxine increased to 75 mcg this hospital stay -Neurology following -Infectious disease: Low clinical suspicion for pneumonia or cellulitis -Previous head CT negative for any acute process, repeat EEG consistent with toxic metabolic encephalopathy, -UA is negative, ammonia negative -YANET negative -syphillus antibody negative Continue supportive care, continue to monitor. Neurology on board, MR Brain w/wo contrast shows no acute findings Continue to monitor, continue participate with PT OT. -seroquel as follows: 25mg qHS, added 12.5mg HS PRN -added namenda per neurology -discontinue zuniga catheter, IV line, and abx. Acute hypoxic respiratory failure Acute on chronic systolic congestive heart failure with ejection fraction 45 to 50% Persistent atrial fibrillation Hypertension -Continue to wean oxygen -Cardiology note reviewed: On metoprolol 150 twice daily, also started on Cardizem 30 TID -Eliquis 5 mg twice daily, Plavix 75 mg daily Persistent atrial fibrillation with RVR: Cardiology on board Acute on chronic congestive heart failure systolic ejection fraction 25% but now up to 45 to 50%. Cardiology following. Eliquis, amiodarone, p.o. Cardizem. Transaminitis associated with hyperbilirubinemia, stable Possibly related to ciprofloxacin use versus hepatic congestion secondary to acute exacerbation of CHF -Patient had been following by GI. They recommend continuing to hold Lipitor. Follow-up with GI as an outpatient basis no further workup needed at this time. Acute kidney injury chronic kidney disease stage III - improving - nephrolopgy recs reviewed: transitioned to lasix PO -Off of Aldactone and Cozaar Newly discovered diabetes -Continue with sliding scale insulin -Follow blood sugars -Will need oral medications on discharge to help with diabetes management but given liver and kidney dysfunction will defer decision of this until later time. Bedbug infestation on arrival -Status post decontamination DVT prophylaxis: eliquis Anticipated discharge date: pending clinical course Discussed with patient's daughter at bedside, continue PT OT, hopefully to discharge to rehab once clinically better. Objective - Vital Signs Vital signs: Vital Signs Temp 97.5 F L 03/19/24 11:11 Pulse 84 03/19/24 11:11 Resp 18 03/19/24 11:11 BP 142/99 03/19/24 11:11 Pulse Ox 96 03/19/24 11:11 FiO2 Intake & Output 03/18/24 03/19/24 03/19/24 18:59 06:59 18:59 Intake Total 75 Output Total 1250 600 Balance -1250 -600 75 Intake: Oral 75 Output: Urine 1250 600 Other: Voiding Method Indwelling Catheter Indwelling Catheter Indwelling Catheter - Labs CBC & Chem 7: 03/19/24 07:44 03/19/24 07:44 Labs: Abnormal Lab Results - Last 24 Hours (Table) 03/18/24 03/18/24 03/19/24 Range/Units 17:03 20:05 05:21 Hct (34.0-46.0) % MCV (80.0-100.0) fL MCHC (31.0-37.0) g/dL RDW (11.5-15.5) % Lymphocytes # (1.0-4.8) k/uL Sodium (137-145) mmol/L Chloride (98-107) mmol/L Carbon Dioxide (22-30) mmol/L BUN (7-17) mg/dL Creatinine (0.52-1.04) mg/dL Glucose (74-99) mg/dL POC Glucose (mg/dL) 216 H 277 H 178 H (70-110) mg/dL 03/19/24 03/19/24 03/19/24 Range/Units 07:44 07:44 11:41 Hct 51.4 H (34.0-46.0) % MCV 102.1 H (80.0-100.0) fL MCHC 30.0 L (31.0-37.0) g/dL RDW 17.5 H (11.5-15.5) % Lymphocytes # 0.7 L (1.0-4.8) k/uL Sodium 146 H (137-145) mmol/L Chloride 111 H (98-107) mmol/L Carbon Dioxide 31 H (22-30) mmol/L BUN 24 H (7-17) mg/dL Creatinine 1.60 H (0.52-1.04) mg/dL Glucose 124 H (74-99) mg/dL POC Glucose (mg/dL) 122 H (70-110) mg/dL
--- NOTE | 2024-03-19 13:16 | P.PN ---
Subjective Patient is seen for follow-up for acute kidney injury. currently maintained on low-dose lasix. Serum creatinine at 1.6 today. Objective - Vital Signs Vital signs: Vital Signs Temp 97.5 F L 03/19/24 11:11 Pulse 84 03/19/24 11:11 Resp 18 03/19/24 11:11 BP 142/99 03/19/24 11:11 Pulse Ox 96 03/19/24 11:11 FiO2 Intake & Output 03/18/24 03/19/24 03/19/24 18:59 06:59 18:59 Intake Total 75 Output Total 1250 600 Balance -1250 -600 75 Intake: Oral 75 Output: Urine 1250 600 Other: Voiding Method Indwelling Catheter Indwelling Catheter Indwelling Catheter - Exam patient is sleeping. She is arousable , answered questions appropriately. 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 - Labs CBC & Chem 7: 03/19/24 07:44 03/19/24 07:44 Labs: Abnormal Lab Results - Last 24 Hours (Table) 03/18/24 03/18/24 03/19/24 Range/Units 17:03 20:05 05:21 Hct (34.0-46.0) % MCV (80.0-100.0) fL MCHC (31.0-37.0) g/dL RDW (11.5-15.5) % Lymphocytes # (1.0-4.8) k/uL Sodium (137-145) mmol/L Chloride (98-107) mmol/L Carbon Dioxide (22-30) mmol/L BUN (7-17) mg/dL Creatinine (0.52-1.04) mg/dL Glucose (74-99) mg/dL POC Glucose (mg/dL) 216 H 277 H 178 H (70-110) mg/dL 03/19/24 03/19/24 03/19/24 Range/Units 07:44 07:44 11:41 Hct 51.4 H (34.0-46.0) % MCV 102.1 H (80.0-100.0) fL MCHC 30.0 L (31.0-37.0) g/dL RDW 17.5 H (11.5-15.5) % Lymphocytes # 0.7 L (1.0-4.8) k/uL Sodium 146 H (137-145) mmol/L Chloride 111 H (98-107) mmol/L Carbon Dioxide 31 H (22-30) mmol/L BUN 24 H (7-17) mg/dL Creatinine 1.60 H (0.52-1.04) mg/dL Glucose 124 H (74-99) mg/dL POC Glucose (mg/dL) 122 H (70-110) mg/dL Assessment and Plan Assessment: 1. Acute kidney injury, cardiorenal syndrome and ATN from hemodynamic instability. Renal function has improved. UA is unremarkable with 3 WBCs noted. No evidence of obstruction on ultrasound. 2. Chronic kidney disease stage IIIa with baseline creatinine 1.1-1.2 in October and November 2023. 3. A-fib with RVR. On oral amiodarone, Cardizem and Lopressor. Cardiology following. 4. Diabetes mellitus. 5. Acute on chronic systolic CHF with ejection fraction of 25 to 30% with mild to moderate mitral and tricuspid regurgitation and moderate pulmonary hypertension noted on echocardiogram done October 2023. Per cardiology, EF is now 45 to 50%. 6. Volume overload. improved. 7. Hypothyroidism maintained on Synthroid. 8. Mild hypernatremia from lack of oral water intake. s/p D5W. Better. 9. E. coli UTI on antibiotics. 10. Hypokalemia from diuresis. Plan: hold Lasix Repeat labs in a.m.
[2024-03-19] MEDS: CEFDINIR 300 MG CAP PO SCH (16:14)
[2024-03-19 16:46] LABS: Glucose,Whole Blood 183 mg/dL (70-110)
[2024-03-19 20:13] LABS: Glucose,Whole Blood 197 mg/dL (70-110)
[2024-03-20 05:35] LABS: Glucose,Whole Blood 146 mg/dL (70-110)
--- NOTE | 2024-03-20 09:35 | P.PN ---
Subjective Progress Note Date: 03/19/24 Patient was seen for a follow-up. Patient's was present today. Patient continues to be very confused, delirious. Patient has not improved at all. Patient is being treated for an acute UTI. Objective - Vital Signs Vital signs: Vital Signs Temp 97.4 F L 03/19/24 16:07 Pulse 77 03/19/24 16:07 Resp 18 03/19/24 16:07 BP 143/100 03/19/24 16:07 Pulse Ox 95 03/19/24 16:07 FiO2 Intake & Output 03/18/24 03/19/24 03/19/24 18:59 06:59 18:59 Intake Total 75 Output Total 1250 600 250 Balance -1250 -600 -175 Weight 85 kg Intake: Oral 75 Output: Urine 1250 600 250 Other: Voiding Method Indwelling Catheter Indwelling Catheter Diaper Incontinent # Bowel Movements 1 - Exam 03/19/2024: Patient continues to be very delirious, emotional at times. Very confused and disoriented. Does not cooperate with examination. 03/18/2024: Patient asleep at this time. Detailed examination deferred. Patient's neck is supple. No rigidity. 03/17/2024: Patient at present is very delirious, still appears encephalopathic. She is however fully alert and awake with eyes open. Previously she used to keep her eyes closed and would not talk at all. Patient does not know the name of current president. Patient was able to tell name of her son "Nicho" however not able to tell name of her daughter. She does not know the current month, states "15th, 17th". On asking the year, patient states "3". Her speech otherwise is clear. She at times appears somewhat irritable. On cranial examination pupils are equal, round and reacting. Patient did not have concentration enough to check for visual arthur. Face is symmetric and tongue protrudes the midline. On muscle strength testing, the strength is completely normal in the arms and legs. Sensory was not able to be checked because of mental status. No obvious ataxia. - Labs CBC & Chem 7: 03/19/24 07:44 03/19/24 07:44 Labs: Abnormal Lab Results - Last 24 Hours (Table) 03/18/24 03/19/24 03/19/24 Range/Units 20:05 05:21 07:44 Hct 51.4 H (34.0-46.0) % MCV 102.1 H (80.0-100.0) fL MCHC 30.0 L (31.0-37.0) g/dL RDW 17.5 H (11.5-15.5) % Lymphocytes # 0.7 L (1.0-4.8) k/uL Sodium (137-145) mmol/L Chloride (98-107) mmol/L Carbon Dioxide (22-30) mmol/L BUN (7-17) mg/dL Creatinine (0.52-1.04) mg/dL Glucose (74-99) mg/dL POC Glucose (mg/dL) 277 H 178 H (70-110) mg/dL 03/19/24 03/19/24 03/19/24 Range/Units 07:44 11:41 16:44 Hct (34.0-46.0) % MCV (80.0-100.0) fL MCHC (31.0-37.0) g/dL RDW (11.5-15.5) % Lymphocytes # (1.0-4.8) k/uL Sodium 146 H (137-145) mmol/L Chloride 111 H (98-107) mmol/L Carbon Dioxide 31 H (22-30) mmol/L BUN 24 H (7-17) mg/dL Creatinine 1.60 H (0.52-1.04) mg/dL Glucose 124 H (74-99) mg/dL POC Glucose (mg/dL) 122 H 183 H (70-110) mg/dL Assessment and Plan Assessment: * Altered mental status, not improving. Patient continues to be extremely confused, delirious, encephalopathic. Rule out psychosis. Consult psychiatry. * Probable underlying dementia. 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 * Elevated hemoglobin A1c 8.0, probable with new onset diabetes. * Acute kidney injury, today further better * Elevated liver enzymes, today further better * Congestive heart failure with EF 25% * COPD * Hypothyroidism, getting worse * Poor social condition with bedbugs infestation. Status post decontamination Plan: * Patient's mentation is just not improving. Namenda was tried, but has not improved. Uncertain if patient has developed some psychosis related to cognitive impairment. We will consult psychiatry. * Patient's level of consciousness has much improved, but still very encephalopathic, confused, disoriented. I discussed with patient's family in detail. It appears patient does have history of progressive memory loss going on for almost 1 year. She has been forgetful. Suspect patient probably has some component of underlying dementia. As patient's condition is not improving, we will empirically start Namenda 5 mg twice daily. Possible side effects were discussed. Primary he is also started patient on Seroquel 25 mg at bedtime by primary. * Also discussed about potential for lumbar puncture. Patient's neck is supple. Her temperatures are normal. White cells are normal. Chances of intracranial infection is very low due to reasons mentioned above. In order to perform lumbar puncture patient has to be put on hold on Eliquis and Plavix. As there is very low index of suspicion for any intracranial infection, therefore family did not want to pursue lumbar puncture. * MRI of the brain with and without contrast was suboptimal study with motion artifact. No MRI evidence for recent infarct. Mild diffuse age-related cerebral atrophy and chronic small vessel ischemic change artery redemonstrated. No suspicious enhancement noted. I personally reviewed MRI agree with the findings. * Patient now diagnosed with acute E. coli UTI, started on Zosyn. ID following. * Patient's renal functions, and liver functions have improved, but still abnormal. * GI has seen the patient, ordered labs. Reviewed notes. * Carotid Doppler could not be performed as patient was not cooperative. * Repeat EEG 03/17/2024 was abnormal due to background slowing of moderate degree. This is suggestive of generalized cerebral dysfunction as can be seen with toxic metabolic encephalopathy or related to diffuse structural brain abnormality. Clinical correlation is recommended. No epileptiform activity was seen. When compared to the EEG from 03/06/2024, the background has improved. * B12 1659, folate 30.9, MMA, B6 11. Ammonia is < 9. * Hemoglobin A1c 8.0, consistent with new onset diabetes. Patient does have history of borderline diabetes in the past. Will defer to IM. * Patient has atrial fibrillation, currently on Eliquis 5 mg twice daily and Plavix. These will be continued. * Patient's thyroid functions are abnormal. We will defer to IM. * Treatment of other medical conditions as per IM. * Discussed with family members in detail.
--- NOTE | 2024-03-20 11:28 | P.PN ---
Subjective Progress Note Date: 03/20/24 No new complaints. CM working on discharge. Gen: In NAD, non-toxic HEENT: normocephalic, atraumatic, hearing acuity is intant, mucous membranes moist CVS: perfusing all extremities well, no pitting edema, Respiratory: symmetric chest expansion, no accessory muscle use, GI: soft, NTTP, ND, : no suprapubic tenderness, no CVA tenderness MSK/Derm: no rashes, cyanosis Neuro: CN II-XII intact, no motor weakness, Hospital course: Patient is a 78-year-old female with known hypertension, dyslipidemia, and A-fib who presented to the emergency department with altered mentation for the previous 2 weeks. Patient was recently being treated for urinary tract infection with Cipro and then nitrofurantoin. On arrival labs were remarkable for creatinine of 1.21 which appears to be at patient's baseline. She had mildly elevated bilirubin at 2.3, AST 65, and ALT of 60. Urinalysis was negative. Urine drug screen was positive for benzodiazepines. She underwent chest x-ray which showed cardiomegaly and COPD. She underwent CT head which demonstrated no acute intracranial process with remote left periventricular white matter changes consistent with small vessel ischemic disease. She was admitted and subsequently underwent liver ultrasound which demonstrated small right renal cyst. She was followed by neurology and GI. She underwent repeat head CT which again showed no acute process. She underwent EEG which demonstrated moderate to severe background slowing consistent with toxic metabol ic encephalopathy. She had carotid Dopplers performed which were nondiagnostic as patient was combative. She developed fluid overload and cardiology was subsequently consulted. It came to light that patient had history of dilated cardiomyopathy and with current ejection fraction 45 to 50%. GI was consulted and the patient had hepatitis serologies performed which were negative, and negative antimitochondrial antibody, and a normal alpha 1 antitrypsin and AFP. B12 and folate were normal. TSH was elevated at 14.9 and hemoglobin A1c was elevated at 8 consistent with new onset diabetes. She developed worsening JANNETH which was felt to be due to cardiorenal syndrome. And nephrology was consulted. Assessment/plan: Acute encephalopathy with history of underlying dementia, undetermined etiology Hypothyroidism -Possible multifocal etiologies including recent ciprofloxacin use, benzodiazepi ne use, under treated hypothyroidism, CVA -TSH is mildly elevated, levothyroxine increased to 75 mcg this hospital stay -Neurology following -Infectious disease: Low clinical suspicion for pneumonia or cellulitis -Previous head CT negative for any acute process, repeat EEG consistent with toxic metabolic encephalopathy, -UA is negative, ammonia negative -YANET negative -syphillus antibody negative Continue supportive care, continue to monitor. Neurology on board, MR Brain w/wo contrast shows no acute findings Continue to monitor, continue participate with PT OT. -seroquel as follows: 25mg qHS, added 12.5mg HS PRN -added namenda per neurology -discontinue zuniga catheter, IV line, and abx. Acute hypoxic respiratory failure Acute on chronic systolic congestive heart failure with ejection fraction 45 to 50% Persistent atrial fibrillation Hypertension -Continue to wean oxygen -Cardiology note reviewed: On metoprolol 150 twice daily, also started on Cardizem 30 TID -Eliquis 5 mg twice daily, Plavix 75 mg daily Persistent atrial fibrillation with RVR: Cardiology on board Acute on chronic congestive heart failure systolic ejection fraction 25% but now up to 45 to 50%. Cardiology following. Eliquis, amiodarone, p.o. Cardizem. Transaminitis associated with hyperbilirubinemia, stable Possibly related to ciprofloxacin use versus hepatic congestion secondary to acute exacerbation of CHF -Patient had been following by GI. They recommend continuing to hold Lipitor. Follow-up with GI as an outpatient basis no further workup needed at this time. Acute kidney injury chronic kidney disease stage III - improving - nephrolopgy recs reviewed: transitioned to lasix PO -Off of Aldactone and Cozaar Newly discovered diabetes -Continue with sliding scale insulin -Follow blood sugars -Will need oral medications on discharge to help with diabetes management but given liver and kidney dysfunction will defer decision of this until later time. Bedbug infestation on arrival -Status post decontamination DVT prophylaxis: eliquis Anticipated discharge date: pending clinical course Discussed with patient's daughter at bedside, continue PT OT, hopefully to discharge to rehab once clinically better. Objective - Vital Signs Vital signs: Vital Signs Temp 97.6 F 03/20/24 11:02 Pulse 100 03/20/24 11:02 Resp 17 03/20/24 11:02 BP 150/100 03/20/24 11:02 Pulse Ox 95 03/20/24 11:02 FiO2 Intake & Output 03/19/24 03/20/24 03/20/24 18:59 06:59 18:59 Intake Total 275 Output Total 250 267 Balance 25 -267 Weight 85 kg 85.5 kg Intake: Oral 275 Output: Urine 250 0 Post Void Residual 267 Other: Voiding Method Diaper Diaper Diaper Incontinent Incontinent Incontinent # Voids 1 # Bowel Movements 1 - Labs CBC & Chem 7: 03/19/24 07:44 03/19/24 07:44 Labs: Abnormal Lab Results - Last 24 Hours (Table) 03/19/24 03/19/24 03/19/24 Range/Units 11:41 16:44 20:12 POC Glucose (mg/dL) 122 H 183 H 197 H (70-110) mg/dL 03/20/24 Range/Units 05:33 POC Glucose (mg/dL) 146 H (70-110) mg/dL
[2024-03-20 11:34] LABS: Glucose,Whole Blood 167 mg/dL (70-110)
[2024-03-20] MEDS: amLODIPine 10 MG TAB PO SCH (12:22)
--- NOTE | 2024-03-20 13:44 | P.PN ---
Subjective Patient is seen for follow-up for acute kidney injury. Lasix was held yesterday. Serum creatinine at 1.6 yesterday. Labs are pending from today. Patient is being fed. She does answer questions today. Objective - Vital Signs Vital signs: Vital Signs Temp 97.6 F 03/20/24 11:02 Pulse 100 03/20/24 11:02 Resp 17 03/20/24 11:02 BP 150/100 03/20/24 11:02 Pulse Ox 95 03/20/24 11:02 FiO2 Intake & Output 03/19/24 03/20/24 03/20/24 18:59 06:59 18:59 Intake Total 275 215 Output Total 250 267 Balance 25 -267 215 Weight 85 kg 85.5 kg Intake: Oral 275 215 Output: Urine 250 0 Post Void Residual 267 Other: Voiding Method Diaper Diaper Diaper Incontinent Incontinent Incontinent # Voids 1 # Bowel Movements 1 - Exam patient is sleeping. She is arousable , answered questions appropriately. 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 Acute kidney injury, cardiorenal syndrome and ATN from hemodynamic instability. Renal function has improved. UA is unremarkable with 3 WBCs no edmund. No evidence of obstruction on ultrasound. 2. Chronic kidney disease stage IIIa with baseline creatinine 1.1-1.2 in October and November 2023. 3. A-fib with RVR. On oral amiodarone, Cardizem and Lopressor. Cardiology following. 4. Diabetes mellitus. 5. Acute on chronic systolic CHF with ejection fraction of 25 to 30% with mild to moderate mitral and tricuspid regurgitation and moderate pulmonary hypertension noted on echocardiogram done October 2023. Per cardiology, EF is now 45 to 50%. 6. Volume overload. improved. 7. Hypothyroidism maintained on Synthroid. 8. Mild hypernatremia from lack of oral water intake. s/p D5W. Better. 9. E. coli UTI on antibiotics. 10. Hypokalemia from diuresis. Plan: continue to hold Lasix Repeat labs in a.m.
[2024-03-20 14:06] LABS: African American GFR (CKD) 41 (>60 ml/min/1.73 sqM); Anion Gap 6 mmol/L; Blood Urea Nitrogen 23 mg/dL (7-17); Calcium 9.4 mg/dL (8.4-10.2); Carbon Dioxide 26 mmol/L (22-30); Chloride 111 mmol/L (98-107); Glucose 176 mg/dL (74-99); Non-African American GFR(CKD) 35 (>60 ml/min/1.73 sqM); Sodium 143 mmol/L (137-145)
[2024-03-20 14:08] LABS: Potassium 4.1 mmol/L (3.5-5.1)
--- NOTE | 2024-03-20 16:20 | CDI ---
Documentation Clarification Form Date: 03/20/2024 03:46:41 PM From: Carol Eubanks RN, CCDS Phone: [phone] Admit Date: 03/05/2024 02:34:00 AM Patient Name: Trisha Brito Visit Number: [id number] Discharge Date: ATTENTION: The Clinical Documentation Specialists (CDI) and [facility] Coding Staff appreciate your assistance in clarifying documentation. Please respond to the clarification below the line at the bottom and electronically sign. The CDI & [facility] Coding staff will review the response and follow-up if needed. Please note: Queries are made part of the Legal Health Record. If you have any questions, please contact the author of this message via ITS. Dr. Belen Sorto Diabetes is documented in the attending progress notes starting on . Additional specificity regarding the diabetes diagnosis is requested. History/Risk Factors: Atrial Fibrillation, Hyperlipidemia, Hypertension Clinical Indicators: 78-year-old female presented to the ED with altered mentation for the previous 2 weeks. Patient was recently being treated for urinary tract infection with Cipro and then nitrofurantoin. She was diagnosed as newly discover diabetes 03/06 Labs: Hemoglobin A1c 8.0 Glucose:(mg/dl) 151, 214, 130, 126, 183, 144 Treatment: Sliding scale insulin coverage (per orders Diabetes management at discharge Please clarify the type of diabetes, if known: [ ] Diabetes Type 1 [x] Diabetes Type 2 [ ] Other, please specify [ ] Unable to Determine (Template Last Revised: December 2020) MTDD
[2024-03-20 16:47] LABS: Glucose,Whole Blood 163 mg/dL (70-110)
[2024-03-20 20:09] LABS: Glucose,Whole Blood 162 mg/dL (70-110)
[2024-03-20] MEDS: ZINC OXIDE PASTE (Z-GUARD) 1 APPLIC TOPICAL PRN (20:35)
[2024-03-21 06:07] LABS: Glucose,Whole Blood 149 mg/dL (70-110)
[2024-03-21 11:04] LABS: Glucose,Whole Blood 148 mg/dL (70-110)
--- NOTE | 2024-03-21 11:12 | P.PN ---
Subjective Progress Note Date: 03/21/24 No new complaints. CM working on discharge. Gen: In NAD, non-toxic HEENT: normocephalic, atraumatic, hearing acuity is intant, mucous membranes moist CVS: perfusing all extremities well, no pitting edema, Respiratory: symmetric chest expansion, no accessory muscle use, GI: soft, NTTP, ND, : no suprapubic tenderness, no CVA tenderness MSK/Derm: no rashes, cyanosis Neuro: CN II-XII intact, no motor weakness, Hospital course: Patient is a 78-year-old female with known hypertension, dyslipidemia, and A-fib who presented to the emergency department with altered mentation for the previous 2 weeks. Patient was recently being treated for urinary tract infection with Cipro and then nitrofurantoin. On arrival labs were remarkable for creatinine of 1.21 which appears to be at patient's baseline. She had mildly elevated bilirubin at 2.3, AST 65, and ALT of 60. Urinalysis was negative. Urine drug screen was positive for benzodiazepines. She underwent chest x-ray which showed cardiomegaly and COPD. She underwent CT head which demonstrated no acute intracranial process with remote left periventricular white matter changes consistent with small vessel ischemic disease. She was admitted and subsequently underwent liver ultrasound which demonstrated small right renal cyst. She was followed by neurology and GI. She underwent repeat head CT which again showed no acute process. She underwent EEG which demonstrated moderate to severe background slowing consistent with toxic metabol ic encephalopathy. She had carotid Dopplers performed which were nondiagnostic as patient was combative. She developed fluid overload and cardiology was subsequently consulted. It came to light that patient had history of dilated cardiomyopathy and with current ejection fraction 45 to 50%. GI was consulted and the patient had hepatitis serologies performed which were negative, and negative antimitochondrial antibody, and a normal alpha 1 antitrypsin and AFP. B12 and folate were normal. TSH was elevated at 14.9 and hemoglobin A1c was elevated at 8 consistent with new onset diabetes. She developed worsening JANNETH which was felt to be due to cardiorenal syndrome. And nephrology was consulted. -Previous head CT negative for any acute process, repeat EEG consistent with toxic metabolic encephalopathy, -UA is negative, ammonia negative -YANET negative -syphillus antibody negative MR Brain w/wo contrast shows no acute findings Assessment/plan: Acute encephalopathy with history of underlying dementia Hypothyroidism -levothyroxine 75 mcg -Neurology following, multiple EEGs demonstrating generalized slowed background c/w metabolic encephalopathy -Infectious disease: discussed with them yesterday, finalize course of abx for uti with cefdinir -Continue to monitor, continue participate with PT OT. -seroquel as follows: 12.5mg HS PRN, discontinued 25mg HS standing dose -continue namenda 5mg BID -discontinue zuniga catheter, IV line -bladder scan today Acute hypoxic respiratory failure, resolved Chronic systolic congestive heart failure with ejection fraction 45 to 50%, Persistent atrial fibrillation, rate controlled Hypertension -Cardiology note reviewed: On metoprolol 150 twice daily, also started on Cardizem 120mg daily -Eliquis 5 mg twice daily, Plavix 75 mg daily -lasix 20mg q48h Transaminitis associated with hyperbilirubinemia, stable -Patient had been following by GI. They recommend continuing to hold Lipitor. Follow-up with GI as an outpatient basis no further workup needed at this time. Acute kidney injury chronic kidney disease stage III - improving - nephrolopgy recs reviewed: transitioned to lasix PO -Off of Aldactone and Cozaar Newly discovered diabetes type II -Continue with sliding scale insulin -Follow blood sugars -Will need oral medications on discharge to help with diabetes management but given liver and kidney dysfunction will defer decision of this until later time. Bedbug infestation on arrival -Status post decontamination DVT prophylaxis: eliquis Anticipated discharge date: pending clinical course Discussed with patient's daughter at bedside, continue PT OT, hopefully to discharge to rehab once clinically better. Objective - Vital Signs Vital signs: Vital Signs Temp 97.6 F 03/21/24 07:15 Pulse 108 H 03/21/24 07:15 Resp 17 03/21/24 07:15 BP 147/95 03/21/24 07:15 Pulse Ox 95 03/21/24 07:15 FiO2 Intake & Output 03/20/24 03/21/24 03/21/24 18:59 06:59 18:59 Intake Total 215 Balance 215 Weight 81.5 kg Intake: Oral 215 Other: Voiding Method Diaper Diaper Diaper Incontinent Incontinent Incontinent # Voids 3 1 1 - Labs CBC & Chem 7: 03/19/24 07:44 03/20/24 13:11 Labs: Abnormal Lab Results - Last 24 Hours (Table) 03/20/24 03/20/24 03/20/24 Range/Units 11:32 13:11 16:46 Chloride 111 H (98-107) mmol/L BUN 23 H (7-17) mg/dL Creatinine 1.43 H (0.52-1.04) mg/dL Glucose 176 H (74-99) mg/dL POC Glucose (mg/dL) 167 H 163 H (70-110) mg/dL 03/20/24 03/21/24 03/21/24 Range/Units 20:07 06:04 11:03 Chloride (98-107) mmol/L BUN (7-17) mg/dL Creatinine (0.52-1.04) mg/dL Glucose (74-99) mg/dL POC Glucose (mg/dL) 162 H 149 H 148 H (70-110) mg/dL
--- NOTE | 2024-03-21 11:58 | P.PN ---
Subjective Progress Note Date: 03/20/24 Patient was seen for a follow-up. Family members were not present today. Patient continues to be very confused, delirious. Patient has not improved at all. Patient is being treated for an acute UTI. Objective - Vital Signs Vital signs: Vital Signs Temp 97.4 F L 03/20/24 15:46 Pulse 96 03/20/24 15:46 Resp 18 03/20/24 15:46 BP 143/88 03/20/24 18:26 Pulse Ox 94 L 03/20/24 15:46 FiO2 Intake & Output 03/19/24 03/20/24 03/20/24 18:59 06:59 18:59 Intake Total 275 215 Output Total 250 267 Balance 25 -267 215 Weight 85 kg 85.5 kg Intake: Oral 275 215 Output: Urine 250 0 Post Void Residual 267 Other: Voiding Method Diaper Diaper Diaper Incontinent Incontinent Incontinent # Voids 1 3 # Bowel Movements 1 - Exam 03/20/2024: Patient continues to be very confused. Patient is breathing at 24/min. Sometimes coughing. Patient has very odd affect. On asking about the month patient states "it will be a lot". "You are right, you are right". Patient's strength appears normal. 03/19/2024: Patient continues to be very delirious, emotional at times. Very confused and disoriented. Does not cooperate with examination. 03/18/2024: Patient asleep at this time. Detailed examination deferred. Patient's neck is supple. No rigidity. 03/17/2024: Patient at present is very delirious, still appears encephalopathic. She is however fully alert and awake with eyes open. Previously she used to keep her eyes closed and would not talk at all. Patient does not know the name of current president. Patient was able to tell name of her son "Nicho" however not able to tell name of her daughter. She does not know the current month, states ", ". On asking the year, patient states "3". Her speech otherw ise is clear. She at times appears somewhat irritable. On cranial examination pupils are equal, round and reacting. Patient did not have concentration enough to check for visual arthur. Face is symmetric and tongue protrudes the midline. On muscle strength testing, the strength is completely normal in the arms and legs. Sensory was not able to be checked because of mental status. No obvious ataxia. - Labs CBC & Chem 7: 03/19/24 07:44 03/20/24 13:11 Labs: Abnormal Lab Results - Last 24 Hours (Table) 03/19/24 03/20/24 03/20/24 Range/Units 20:12 05:33 11:32 Chloride (98-107) mmol/L BUN (7-17) mg/dL Creatinine (0.52-1.04) mg/dL Glucose (74-99) mg/dL POC Glucose (mg/dL) 197 H 146 H 167 H (70-110) mg/dL 03/20/24 03/20/24 Range/Units 13:11 16:46 Chloride 111 H (98-107) mmol/L BUN 23 H (7-17) mg/dL Creatinine 1.43 H (0.52-1.04) mg/dL Glucose 176 H (74-99) mg/dL POC Glucose (mg/dL) 163 H (70-110) mg/dL Assessment and Plan Assessment: * Altered mental status, not improving. Patient continues to be extremely confused, delirious, encephalopathic. Rule out psychosis. Consult psychiatry. * Probable underlying dementia. 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 * Elevated hemoglobin A1c 8.0, probable with new onset diabetes. * Acute kidney injury, today further better * Elevated liver enzymes, today further better * Congestive heart failure with EF 25% * COPD * Hypothyroidism, getting worse * Poor social condition with bedbugs infestation. Status post decontamination Plan: * Patient's mentation is just not improving. Namenda was tried, but has not improved. Uncertain if patient has developed some psychosis related to co gnitive impairment. Await psychiatry input. * Patient's level of consciousness has much improved, but still very encephalopathic, confused, disoriented. I discussed with patient's family in detail. It appears patient does have history of progressive memory loss going on for almost 1 year. She has been forgetful. Suspect patient probably has some component of underlying dementia. As patient's condition is not improving, we will empirically start Namenda 5 mg twice daily. Possible side effects were discussed. Primary he is also started patient on Seroquel 25 mg at bedtime by primary. * Also discussed about potential for lumbar puncture. Patient's neck is supple. Her temperatures are normal. White cells are normal. Chances of intracranial infection is very low due to reasons mentioned above. In order to perform lumbar puncture patient has to be put on hold on Eliquis and Plavix. As there is very low index of suspicion for any intracranial infection, therefore family did not want to pursue lumbar puncture. * MRI of the brain with and without contrast was suboptimal study with motion artifact. No MRI evidence for recent infarct. Mild diffuse age-related cerebral atrophy and chronic small vessel ischemic change artery redemonstrated. No suspicious enhancement noted. I personally reviewed MRI agree with the findings. * Patient now diagnosed with acute E. coli UTI, started on Zosyn. ID following. * Patient's renal functions, and liver functions have improved, but still abnormal. * GI has seen the patient, ordered labs. Reviewed notes. * Carotid Doppler could not be performed as patient was not cooperative. * Repeat EEG 03/17/2024 was abnormal due to background slowing of moderate degree. This is suggestive of generalized cerebral dysfunction as can be seen with toxic metabolic encephalopathy or related to diffuse structural brain abnormality. Clinical correlation is recommended. No epileptiform activity was seen. When compared to the EEG from 03/06/2024, the background has improved. * B12 1659, folate 30.9, MMA, B6 11. Ammonia is < 9. * Hemoglobin A1c 8.0, consistent with new onset diabetes. Patient does have history of borderline diabetes in the past. Will defer to IM. * Patient has atrial fibrillation, currently on Eliquis 5 mg twice daily and Plavix. These will be continued. * Patient's thyroid functions are abnormal. We will defer to IM. * Treatment of other medical conditions as per IM.
--- NOTE | 2024-03-21 13:41 | P.CN ---
Psychiatric Consult - . Consult date: 03/21/24 Consult:: 03/21/24 13:39 CONSULTATION Reason for consult: Altered MS. identifying Data: The patient is 78 years old, white female, who lives in [place], [place] with her . Reason for admission: Altered MS. History of present illness: The patient was brought to the emergency with increased confusion and visual hallucinations. She developed UTI around mid-February. As per family, she started having confusion, impaired memory, and visual hallucinations prior to that. After this she fell off the couch and was taken to her PCP by the family. The patient was considered fine as far as head injury was concerned but she was found to have UTI. The PCP started the patient on antibiotics which did not work. She was placed on a different antibiotic. She got worse and was brought to ER of this hospital. After initial evaluation and work-up, she was transferred to medical floor for further management. This consult is generated to assess the MS. During this evaluation, the patient could not provide any information. She was very confused, disoriented, unable to hold any meaning full conversation. She was pulling her clothes, picking things and saying illegible things. She appeared to be in subacute delirium. The history above was obtained from her daughter and , Current psychotropic medication; Seroquel 25 mg at bedtime for sleep and 12,5 mg if needed an additional dose for sleep. None in the past. Out-pt follow-up: No history of psychiatric out-pt treatment. History of past psychiatric illness: None. No history of suicidal or homicidal ideations or behavior. Past medical history: CHD, CHF, HTN, A. Fib, COPD Substance abuse history: None Family history of psychiatric disorder: None. MSE: The patient was alert but unable to hold any conversation. Cognition: Confused, disoriented, with global impairment of cognitive functions. Judgement and Insight: Very Poor. Diagnosis: Subacute delirium- multifactorial, possibly secondary to metabolic encephalopathy. REC: Continue Seroquel as per your recommendation for sleep. Will sign off the case. Reconsult, if MS changes. Celio Ulrich MD Psychiatry
[2024-03-21 16:49] LABS: Glucose,Whole Blood 266 mg/dL (70-110)
--- NOTE | 2024-03-21 18:50 | P.PN ---
Subjective Patient is seen for follow-up for acute kidney injury. Serum creatinine at 1.4 today. Lasix has been decreased. Objective - Vital Signs Vital signs: Vital Signs Temp 97.7 F 03/21/24 14:40 Pulse 86 03/21/24 14:40 Resp 17 03/21/24 14:40 BP 155/101 03/21/24 14:40 Pulse Ox 95 03/21/24 14:40 FiO2 Intake & Output 03/20/24 03/21/24 03/21/24 18:59 06:59 18:59 Intake Total 215 Balance 215 Weight 81.5 kg 81.5 kg Intake: Oral 215 Other: Voiding Method Diaper Diaper Diaper Incontinent Incontinent Incontinent # Voids 3 1 3 # Bowel Movements 8 - Exam patient is sleeping. She is arousable. Examination of the heart S1 and S2 Examination of the lungs bilateral breath sounds are heard no crackles are heard Abdomen is soft nontender Examination of lower extremities shows no significant edema [facility] [employer] exam shows patient is moving all 4 extremities - Labs CBC & Chem 7: 03/19/24 07:44 03/20/24 13:11 Labs: Abnormal Lab Results - Last 24 Hours (Table) 03/20/24 03/21/24 03/21/24 Range/Units 20:07 06:04 11:03 POC Glucose (mg/dL) 162 H 149 H 148 H (70-110) mg/dL 03/21/24 Range/Units 16:48 POC Glucose (mg/dL) 266 H (70-110) mg/dL Assessment and Plan Assessment: 1. Acute kidney injury, cardiorenal syndrome and ATN from hemodynamic instability. Renal function has improved. UA is unremarkable with 3 WBCs noted. No evidence of obstruction on ultrasound. 2. Chronic kidney disease stage IIIa with baseline creatinine 1.1-1.2 in October and November 2023. 3. A-fib with RVR. On oral amiodarone, Cardizem and Lopressor. Cardiology following. 4. Diabetes mellitus. 5. Acute on chronic systolic CHF with ejection fraction of 25 to 30% with mild to moderate mitral and tricuspid regurgitation and moderate pulmonary hyperte nsion noted on echocardiogram done October 2023. Per cardiology, EF is now 45 to 50%. 6. Volume overload. improved. 7. Hypothyroidism maintained on Synthroid. 8. Mild hypernatremia from lack of oral water intake. s/p D5W. Better. 9. E. coli UTI on antibiotics. 10. Hypokalemia from diuresis. Plan: continue with decreased dose of Lasix. Encouraged to increase oral intake. Repeat labs in a.m.
[2024-03-21 20:32] LABS: Glucose,Whole Blood 202 mg/dL (70-110)
[2024-03-21 22:36] LABS: Glucose,Whole Blood 194 mg/dL (70-110)
[2024-03-21] MEDS: AMIODARONE 200 MG TAB PO SCH (22:49)
--- NOTE | 2024-03-21 23:28 | P.PN ---
Subjective Progress Note Date: 03/21/24 Patient was seen for a follow-up. Family members were not present today. Patient continues to be very confused, delirious. Patient has not improved at all. Patient's , patient's son, daughter and patient's her own sister were also present today. All of them trying to alert her, but patient is very groggy. They were able to have her take 2 small applesauce packs. Patient is being treated for an acute UTI. Objective - Vital Signs Vital signs: Vital Signs Temp 97.7 F 03/21/24 14:40 Pulse 86 03/21/24 14:40 Resp 17 03/21/24 14:40 BP 155/101 03/21/24 14:40 Pulse Ox 95 03/21/24 14:40 FiO2 Intake & Output 03/20/24 03/21/24 03/21/24 18:59 06:59 18:59 Intake Total 215 Balance 215 Weight 81.5 kg 81.5 kg Intake: Oral 215 Other: Voiding Method Diaper Diaper Diaper Incontinent Incontinent Incontinent # Voids 3 1 1 - Exam 03/21/2024: Patient is very groggy. Patient was able to tell her family her own name. She was able to recognize her son, and the sister, but not the da ughter. She does raise her 1 or the other extremity on repeated instructions. Patient's son and patient's daughter very much trying to gain patient's attention but she is very somnolent. Neck is supple. No obvious seizure-like activity noted. 03/20/2024: Patient continues to be very confused. Patient is breathing at 24/min. Sometimes coughing. Patient has very odd affect. On asking about the month patient states "it will be a lot". "You are right, you are right". Patient's strength appears normal. 03/19/2024: Patient continues to be very delirious, emotional at times. Very confused and disoriented. Does not cooperate with examination. 03/18/2024: Patient asleep at this time. Detailed examination deferred. Patient 's neck is supple. No rigidity. 03/17/2024: Patient at present is very delirious, still appears encephalopathic. She is however fully alert and awake with eyes open. Previously she used to keep her eyes closed and would not talk at all. Patient does not know the name of current president. Patient was able to tell name of her son "Nicho" however not able to tell name of her daughter. She does not know the current month, states "15th, 17th". On asking the year, patient states "3". Her speech otherwise is clear. She at times appears somewhat irritable. On cranial examination pupils are equal, round and reacting. Patient did not have concentration enough to check for visual arthur. Face is symmetric and tongue protrudes the midline. On muscle strength testing, the strength is completely normal in the arms and legs. Sensory was not able to be checked because of mental status. No obvious ataxia. - Labs CBC & Chem 7: 03/19/24 07:44 03/20/24 13:11 Labs: Abnormal Lab Results - Last 24 Hours (Table) 03/20/24 03/20/24 03/21/24 Range/Units 16:46 20:07 06:04 POC Glucose (mg/dL) 163 H 162 H 149 H (70-110) mg/dL 03/21/24 Range/Units 11:03 POC Glucose (mg/dL) 148 H (70-110) mg/dL Assessment and Plan Assessment: * Altered mental status, not improving. Patient continues to be extremely confused, delirious, encephalopathic. Patient now even more lethargic. Uncertain from Seroquel. * Probable underlying dementia. 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 * Elevated hemoglobin A1c 8.0, probable with new onset diabetes. * Acute kidney injury, today further better * Elevated liver enzymes, today further better * Congestive heart failure with EF 25% * COPD * Hypothyroidism, getting worse * Poor social condition with bedbugs infestation. Status post decontamination Plan: * Patient's mentation is just not improving. Namenda was tried, but has not improved. Psychiatry has seen the patient, with no suggestions. Suspecting encephalopathy. * I discussed case with patient's family and then with Dr. Sorto about lumbar puncture. Family previously have declined lumbar puncture. However they were somewhat open to it at this point. I discussed with Dr. Sorto, who believes that patient's somnolence is related to Seroquel and he wants to stop it and see if patient wakes up. * Patient does have history of progressive memory loss going on for almost 1 year. She has been forgetful. Suspect patient probably has some component of underlying dementia. As patient's condition is not improving, we will empirically start Namenda 5 mg twice daily. Possible side effects were discussed. * Also had previously discussed about potential for lumbar puncture. Patient's neck is supple. Her temperatures are normal. White cells are normal. Chances of intracranial infection is very low due to reasons mentioned above. In order to perform lumbar puncture patient has to be put on hold on Eliquis and Plavix. * MRI of the brain with and without contrast was suboptimal study with motion artifact. No MRI evidence for recent infarct. Mild diffuse age-related cerebral atrophy and chronic small vessel ischemic change artery redemon strated. No suspicious enhancement noted. I personally reviewed MRI agree with the findings. * Patient now diagnosed with acute E. coli UTI, started on Zosyn. ID following. * Patient's renal functions, and liver functions have improved, but still abnormal. * GI has seen the patient, ordered labs. Reviewed notes. * Carotid Doppler could not be performed as patient was not cooperative. * Repeat EEG 03/17/2024 was abnormal due to background slowing of moderate degree. This is suggestive of generalized cerebral dysfunction as can be seen with toxic metabolic encephalopathy or related to diffuse structural brain abnormality. Clinical correlation is recommended. No epileptiform activity was seen. When compared to the EEG from 03/06/2024, the background has improved. * B12 1659, folate 30.9, MMA, B6 11. Ammonia is < 9. * Hemoglobin A1c 8.0, consistent with new onset diabetes. Patient does have history of borderline diabetes in the past. Will defer to IM. * Patient has atrial fibrillation, currently on Eliquis 5 mg twice daily and Plavix. These will be continued. * Patient's thyroid functions are abnormal. We will defer to IM. * Treatment of other medical conditions as per IM. * Dr. Pinto covering neurology service over the weekend.
[2024-03-22 06:03] LABS: Glucose,Whole Blood 152 mg/dL (70-110)
--- NOTE | 2024-03-22 11:41 | P.PN ---
Subjective Progress Note Date: 03/22/24 No new complaints. Pt has ongoing confusion that is sometimes worse and sometimes improved. Discontinued seroquel. CM working on discharge. Gen: In NAD, non-toxic HEENT: normocephalic, atraumatic, hearing acuity is intant, mucous membranes moist CVS: perfusing all extremities well, no pitting edema, Respiratory: symmetric chest expansion, no accessory muscle use, GI: soft, NTTP, ND, : no suprapubic tenderness, no CVA tenderness MSK/Derm: no rashes, cyanosis Neuro: CN II-XII intact, no motor weakness, Hospital course: Patient is a 78-year-old female with known hypertension, dyslipidemia, and A-fib who presented to the emergency department with altered mentation for the previous 2 weeks. Patient was recently being treated for urinary tract infection with Cipro and then nitrofurantoin. On arrival labs were remarkable for creatinine of 1.21 which appears to be at patient's baseline. She had mildly elevated bilirubin at 2.3, AST 65, and ALT of 60. Urinalysis was negative. Urine drug screen was positive for benzodiazepines. She underwent chest x-ray which showed cardiomegaly and COPD. She underwent CT head which demonstrated no acute intracranial process with remote left periventricular white matter changes consistent with small vessel ischemic disease. She was admitted and subsequently underwent liver ultrasound which demonstrated small right renal cyst. She was followed by neurology and GI. She underwent repeat head CT which again showed no acute process. She underwent EEG which demonstrated moderate to severe background slowing consistent with toxic metabolic encephalopathy. She had carotid Dopplers performed which were nondiagnostic as patient was combative. She developed fluid overload and cardiology was subsequently consulted. It came to light that patient had history of dilated cardiomyopathy and with current ejection fraction 45 to 50%. GI was consulted and the patient had hepatitis serologies performed which were negative, and negative antimitochondrial antibody, and a normal alpha 1 antitrypsin and AFP. B12 and folate were normal. TSH was elevated at 14.9 and hemoglobin A1c was elevated at 8 consistent with new onset diabetes. She dev eloped worsening JANNETH which was felt to be due to cardiorenal syndrome. And nephrology was consulted. -Previous head CT negative for any acute process, repeat EEG consistent with toxic metabolic encephalopathy, -UA is negative, ammonia negative -YANET negative -syphillus antibody negative MR Brain w/wo contrast shows no acute findings Assessment/plan: Acute encephalopathy with history of underlying dementia Hypothyroidism -levothyroxine 75 mcg -Neurology following, multiple EEGs demonstrating generalized slowed background c/w metabolic encephalopathy -Infectious disease: discussed with them yesterday, finalize course of abx for uti with cefdinir -Continue to monitor, continue participate with PT OT. -seroquel as follows: 12.5mg HS PRN, discontinued 25mg HS standing dose -continue namenda 5mg BID -discontinue zuniga catheter, IV line -bladder scan today Acute hypoxic respiratory failure, resolved Chronic systolic congestive heart failure with ejection fraction 45 to 50%, Persistent atrial fibrillation, rate controlled Hypertension -Cardiology note reviewed: On metoprolol 150 twice daily, also started on Cardizem 120mg daily -Eliquis 5 mg twice daily, Plavix 75 mg daily -lasix 20mg q48h Transaminitis associated with hyperbilirubinemia, stable -Patient had been following by GI. They recommend continuing to hold Lipitor. Follow-up with GI as an outpatient basis no further workup needed at this time. Acute kidney injury chronic kidney disease stage III - improving - nephrolopgy recs reviewed: transitioned to lasix PO -Off of Aldactone and Cozaar Newly discovered diabetes type II -Continue with sliding scale insulin -Follow blood sugars -Will need oral medications on discharge to help with diabetes management but given liver and kidney dysfunction will defer decision of this until later time. Bedbug infestation on arrival -Status post decontamination DVT prophylaxis: eliquis Anticipated discharge date: pending clinical course Discussed with patient's daughter at bedside, continue PT OT, hopefully to discharge to rehab once clinically better. Objective - Vital Signs Vital signs: Vital Signs Temp 97.5 F L 03/22/24 07:12 Pulse 80 03/22/24 07:12 Resp 18 03/22/24 07:12 BP 151/104 03/22/24 07:12 Pulse Ox 95 03/22/24 07:12 FiO2 Intake & Output 03/21/24 03/22/24 03/22/24 18:59 06:59 18:59 Weight 81.5 kg 86.5 kg Other: Voiding Method Diaper Bedpan Incontinent # Voids 3 1 # Bowel Movements 8 2 - Labs CBC & Chem 7: 03/19/24 07:44 03/20/24 13:11 Labs: Abnormal Lab Results - Last 24 Hours (Table) 03/21/24 03/21/24 03/21/24 Range/Units 11:03 16:48 20:30 POC Glucose (mg/dL) 148 H 266 H 202 H (70-110) mg/dL 03/21/24 03/22/24 Range/Units 22:34 06:01 POC Glucose (mg/dL) 194 H 152 H (70-110) mg/dL
[2024-03-22 12:06] LABS: Glucose,Whole Blood 226 mg/dL (70-110)
--- NOTE | 2024-03-22 15:37 | P.PN ---
Subjective Progress Note Date: 03/22/24 Principal diagnosis: Reason for follow-up is urinary tract infection Patient is a 78-year-old female with a past medical history significant for hypertension hyperlipidemia sleep apnea atrial fibrillation patient has been brought into the hospital on 03/04/2024 for evaluation of increasing confusion, initial consult placed for bug bites and concern for possible cellulitis. On today's evaluation that is 03/22/2024,the patient is more awake and alert today denies any fever or any chills, patient is breathing comfortably on room air, the patient denies chest pain shortness of breath and no significant cough, patient denies abdominal pain did have some frequent soft stools as reported by the daughter at the bedside. No new labs obtained today Objective - Vital Signs Vital signs: Vital Signs Temp 97.5 F L 03/22/24 07:12 Pulse 80 03/22/24 07:12 Resp 18 03/22/24 07:12 BP 151/104 03/22/24 07:12 Pulse Ox 95 03/22/24 07:12 FiO2 Intake & Output 03/21/24 03/22/24 03/22/24 18:59 06:59 18:59 Weight 81.5 kg 86.5 kg Other: Voiding Method Diaper Bedpan Incontinent # Voids 3 1 # Bowel Movements 8 2 - Exam Elderly female lying in bed in no distress Unlabored breathing decreased breath sounds at the base Heart S1-S2 regular Abdomen soft no tenderness Patient is more awake alert, mood and affect normal - Labs CBC & Chem 7: 03/19/24 07:44 03/20/24 13:11 Labs: Abnormal Lab Results - Last 24 Hours (Table) 03/21/24 03/21/24 03/21/24 Range/Units 16:48 20:30 22:34 POC Glucose (mg/dL) 266 H 202 H 194 H (70-110) mg/dL 03/22/24 Range/Units 06:01 POC Glucose (mg/dL) 152 H (70-110) mg/dL Assessment and Plan (1) Urinary tract infection Current Visit: Yes Status: Acute Code(s): N39.0 - URINARY TRACT INFECTION, SITE NOT SPECIFIED SNOMED Code(s): 97526419 Plan: T 1patient presented to hospital mental status changes likely multifactorial patient did have multiple bug bites to the lower extremity however those are drying out with no evidence of any active cellulitis at the same time the patient did have a chest x-ray with bibasilar infiltrate more likely representing atelectasis clinically not behaving as pneumonia in this patient with no fever or elevated white count 2-patient did have normal procalcitonin however she did have a positive UA 3-patient urine culture did grow E. coli that is sensitive to Zosyn as well as Rocephin, patient has received adequate Zosyn as well as Omnicef we will go ahead and discontinue Omnicef encouraged to increase her probiotic and yogurt intake Dictation was produced using [employer] software. please excuse any grammatical, word or spelling errors. Time with Patient: Less than 30
[2024-03-22 16:45] LABS: Glucose,Whole Blood 171 mg/dL (70-110)
--- NOTE | 2024-03-22 19:49 | P.PN ---
Subjective Progress Note Date: 03/22/24 Patient is seen for follow-up for acute kidney injury. Currently sleeping but improving per family at bedside. Awaiting CHANG. patient is sleeping. She is arousable. Examination of the heart S1 and S2 Examination of the lungs bilateral breath sounds are heard no crackles are heard Abdomen is soft nontender Examination of lower extremities shows no significant edema MAGICIAN/ILLUSIONIST exam shows patient is moving all 4 extremities Objective - Vital Signs Vital signs: Vital Signs Temp 97.5 F L 03/22/24 07:12 Pulse 80 03/22/24 07:12 Resp 18 03/22/24 07:12 BP 151/104 03/22/24 07:12 Pulse Ox 95 03/22/24 07:12 FiO2 Intake & Output 03/21/24 03/22/24 03/22/24 18:59 06:59 18:59 Weight 81.5 kg 86.5 kg Other: Voiding Method Diaper Bedpan Incontinent # Voids 3 1 # Bowel Movements 8 2 - Labs CBC & Chem 7: 03/19/24 07:44 03/20/24 13:11 Labs: Abnormal Lab Results - Last 24 Hours (Table) 03/21/24 03/21/24 03/21/24 Range/Units 16:48 20:30 22:34 POC Glucose (mg/dL) 266 H 202 H 194 H (70-110) mg/dL 03/22/24 03/22/24 Range/Units 06:01 12:04 POC Glucose (mg/dL) 152 H 226 H (70-110) mg/dL Assessment and Plan Assessment: 1. Acute kidney injury, cardiorenal syndrome and ATN from hemodynamic instability. Renal function has improved. UA is unremarkable with 3 WBCs noted. No evidence of obstruction on ultrasound. 2. Chronic kidney disease stage IIIa with baseline creatinine 1.1-1.2 in October and November 2023. 3. A-fib with RVR. On oral amiodarone, Cardizem and Lopressor. Cardiology following. 4. Diabetes mellitus. 5. Acute on chronic systolic CHF with ejection fraction of 25 to 30% with mild to moderate mitral and tricuspid regurgitation and moderate pulmonary hypertension noted on echocardiogram done October 2023. Per cardiology, EF is now 45 to 50%. 6. Volume overload. improved. 7. Hypothyroidism maintained on Synthroid. 8. Mild hypernatremia from lack of oral water intake. s/p D5W. Better. 9. E. coli UTI on antibiotics. 10. Hypokalemia from diuresis. Plan: Continue with decreased dose of Lasix. Encouraged to increase oral intake. No recent labs, renal function was at baseline level.
[2024-03-22 20:41] LABS: Glucose,Whole Blood 169 mg/dL (70-110)
[2024-03-23 06:15] LABS: Glucose,Whole Blood 174 mg/dL (70-110)
[2024-03-23] MEDS: FUROSEMIDE 20 MG TAB PO SCH (08:54)
--- NOTE | 2024-03-23 11:29 | P.PN ---
Subjective Progress Note Date: 03/23/24 No new complaints. Patient's mental status appears to be confused after discontinuation of Seroquel. Gen: In NAD, non-toxic HEENT: normocephalic, atraumatic, hearing acuity is intant, mucous membranes [address] CVS: perfusing all extremities well, no pitting edema, Respiratory: symmetric chest expansion, no accessory muscle use, GI: soft, NTTP, ND, : no suprapubic tenderness, no CVA tenderness MSK/Derm: no rashes, cyanosis Neuro: CN II-XII intact, no motor weakness, Hospital course: Patient is a 78-year-old female with known hypertension, dyslipidemia, and A-fib who presented to the emergency department with altered mentation for the previous 2 weeks. Patient was recently being treated for urinary tract infection with Cipro and then nitrofurantoin. On arrival labs were remarkable for creatinine of 1.21 which appears to be at patient's baseline. She had mildly elevated bilirubin at 2.3, AST 65, and ALT of 60. Urinalysis was negative. Urine drug screen was positive for benzodiazepines. She underwent chest x-ray which showed cardiomegaly and COPD. She underwent CT head which dem onstrated no acute intracranial process with remote left periventricular white matter changes consistent with small vessel ischemic disease. She was admitted and subsequently underwent liver ultrasound which demonstrated small right renal cyst. She was followed by neurology and GI. She underwent repeat head CT which again showed no acute process. She underwent EEG which demonstrated moderate to severe background slowing consistent with toxic metabolic encephalopathy. She had carotid Dopplers performed which were nondiagnostic as patient was combative. She developed fluid overload and cardiology was subsequently consulted. It came to light that patient had history of dilated cardiomyopathy and with current ejection fraction 45 to 50%. GI was consulted and the patient had hepatitis serologies performed which were negative, and negative antimitochondrial antibody, and a normal alpha 1 antitrypsin and AFP. B12 and folate were normal. TSH was elevated at 14.9 and hemoglobin A1c was elevated at 8 consistent with new onset diabetes. She developed worsening JANNETH which was felt to be due to cardiorenal syndrome. And nephrology was consulted. -Previous head CT negative for any acute process, repeat EEG consistent with toxic metabolic encephalopathy, -UA is negative, ammonia negative -YANET negative -syphillus antibody negative MR Brain w/wo contrast shows no acute findings Assessment/plan: Acute encephalopathy with history of underlying dementia Hypothyroidism -levothyroxine 75 mcg -Neurology following, multiple EEGs demonstrating generalized slowed background c/w metabolic encephalopathy -Infectious disease: discussed with them yesterday, finalize course of abx for uti with cefdinir -Continue to monitor, continue participate with PT OT. -seroquel as follows: 12.5mg HS PRN, discontinued 25mg HS standing dose -continue namenda 5mg BID -discontinue zuniga catheter, IV line -bladder scan today Acute hypoxic respiratory failure, resolved Chronic systolic congestive heart failure with ejection fraction 45 to 50%, Persistent atrial fibrillation, rate controlled Hypertension -Cardiology note reviewed: On metoprolol 150 twice daily, also started on Cardizem 120mg daily -Eliquis 5 mg twice daily, Plavix 75 mg daily -lasix 20mg q48h Transaminitis associated with hyperbilirubinemia, stable -Patient had been following by GI. They recommend continuing to hold Lipitor. Follow-up with GI as an outpatient basis no further workup needed at this time. Acute kidney injury chronic kidney disease stage III - improving - nephrolopgy recs reviewed: transitioned to lasix PO -Off of Aldactone and Cozaar Newly discovered diabetes type II -Continue with sliding scale insulin -Follow blood sugars -Will need oral medications on discharge to help with diabetes management but given liver and kidney dysfunction will defer decision of this until later time. Bedbug infestation on arrival -Status post decontamination DVT prophylaxis: eliquis Anticipated discharge date: pending clinical course Discussed with patient's daughter at bedside, continue PT OT, hopefully to discharge to rehab once clinically better. Objective - Vital Signs Vital signs: Vital Signs Temp 97.4 F L 03/23/24 07:51 Pulse 71 03/23/24 07:51 Resp 18 03/23/24 07:51 BP 148/114 03/23/24 07:51 Pulse Ox 95 03/23/24 09:26 FiO2 21 03/23/24 09:26 Intake & Output 03/22/24 03/23/24 03/23/24 18:59 06:59 18:59 Weight 84.5 kg Other: Voiding Method Bedpan Bedpan Diaper Diaper Diaper Incontinent Incontinent Incontinent # Voids 4 1 1 # Bowel Movements 3 - Labs CBC & Chem 7: 03/19/24 07:44 03/20/24 13:11 Labs: Abnormal Lab Results - Last 24 Hours (Table) 03/22/24 03/22/24 03/22/24 Range/Units 12:04 16:44 20:39 POC Glucose (mg/dL) 226 H 171 H 169 H (70-110) mg/dL 03/23/24 Range/Units 06:13 POC Glucose (mg/dL) 174 H (70-110) mg/dL
[2024-03-23 11:51] LABS: Glucose,Whole Blood 171 mg/dL (70-110)
--- NOTE | 2024-03-23 12:31 | P.PN ---
Subjective Progress Note Date: 03/23/24 Patient is seen for follow-up for acute kidney injury. No acute events over night. Awaiting CHANG. patient is sleeping. She is arousable. Examination of the heart S1 and S2 Examination of the lungs bilateral breath sounds are heard no crackles are heard Abdomen is soft nontender Examination of lower extremities shows no significant edema BASEBALL WINDER exam shows patient is moving all 4 extremities Objective - Vital Signs Vital signs: Vital Signs Temp 97.4 F L 03/23/24 07:51 Pulse 71 03/23/24 07:51 Resp 18 03/23/24 07:51 BP 148/114 03/23/24 07:51 Pulse Ox 95 03/23/24 09:26 FiO2 21 03/23/24 09:26 Intake & Output 03/22/24 03/23/24 03/23/24 18:59 06:59 18:59 Weight 84.5 kg Other: Voiding Method Bedpan Bedpan Diaper Diaper Diaper Incontinent Incontinent Incontinent # Voids 4 1 1 # Bowel Movements 3 - Labs CBC & Chem 7: 03/19/24 07:44 03/20/24 13:11 Labs: Abnormal Lab Results - Last 24 Hours (Table) 03/22/24 03/22/24 03/22/24 Range/Units 12:04 16:44 20:39 POC Glucose (mg/dL) 226 H 171 H 169 H (70-110) mg/dL 03/23/24 Range/Units 06:13 POC Glucose (mg/dL) 174 H (70-110) mg/dL Assessment and Plan Assessment: 1. Acute kidney injury, cardiorenal syndrome and ATN from hemodynamic instability. Renal function has improved. UA is unremarkable with 3 WBCs noted. No evidence of obstruction on ultrasound. 2. Chronic kidney disease stage IIIa with baseline creatinine 1.1-1.2 in October and November 2023. 3. A-fib with RVR. On oral amiodarone, Cardizem and Lopressor. Cardiology following. 4. Diabetes mellitus. 5. Acute on chronic systolic CHF with ejection fraction of 25 to 30% with mild to moderate mitral and tricuspid regurgitation and moderate pulmonary hypertension noted on echocardiogram done October 2023. Per cardiology, EF is now 45 to 50%. 6. Volume overload. improved. 7. Hypothyroidism maintained on Synthroid. 8. Mild hypernatremia from lack of oral water intake. s/p D5W. Better. 9. E. coli UTI on antibiotics. 10. Hypokalemia from diuresis. Plan: Continue with decreased dose of Lasix. Encouraged to increase oral intake. No recent labs, renal function was at baseline level.
--- NOTE | 2024-03-23 13:53 | P.PN ---
Subjective Progress Note Date: 03/23/24 Principal diagnosis: Reason for follow-up is urinary tract infection Patient is a 78-year-old female with a past medical history significant for hypertension hyperlipidemia sleep apnea atrial fibrillation patient has been brought into the hospital on 03/04/2024 for evaluation of increasing confusion, initial consult placed for bug bites and concern for possible cellulitis. On today's evaluation that is 03/23/2024,the patient remains to be afebrile, patient is on room air not requiring supplemental oxygen and denies any shortness of breath no chest pain or cough.Patient denies having any nausea or vomiting, no abdominal pain and no diarrhea has been reported no new lab has been obtained today Objective - Vital Signs Vital signs: Vital Signs Temp 97.4 F L 03/23/24 07:51 Pulse 71 03/23/24 07:51 Resp 18 03/23/24 07:51 BP 148/114 03/23/24 07:51 Pulse Ox 95 03/23/24 09:26 FiO2 21 03/23/24 09:26 Intake & Output 03/22/24 03/23/24 03/23/24 18:59 06:59 18:59 Weight 84.5 kg Other: Voiding Method Bedpan Bedpan Diaper Diaper Diaper Incontinent Incontinent Incontinent # Voids 4 1 1 # Bowel Movements 3 - Exam Elderly female lying in bed in no distress Unlabored breathing decreased breath sounds at the base Heart S1-S2 regular Abdomen soft no tenderness Patient is more awake alert, mood and affect normal - Labs CBC & Chem 7: 03/19/24 07:44 03/20/24 13:11 Labs: Abnormal Lab Results - Last 24 Hours (Table) 03/22/24 03/22/24 03/23/24 Range/Units 16:44 20:39 06:13 POC Glucose (mg/dL) 171 H 169 H 174 H (70-110) mg/dL 03/23/24 Range/Units 11:49 POC Glucose (mg/dL) 171 H (70-110) mg/dL Assessment and Plan (1) Urinary tract infection Current Visit: Yes Status: Acute Code(s): N39.0 - URINARY TRACT INFECTION, SITE NOT SPECIFIED SNOMED Code(s): 08726741 Plan: T 1patient presented to hospital mental status changes likely multifactorial patient did have multiple bug bites to the lower extremity however those are drying out with no evidence of any active cellulitis at the same time the patient did have a chest x-ray with bibasilar infiltrate more likely representing atelectasis clinically not behaving as pneumonia in this patient with no fever or elevated white count 2-patient did have normal procalcitonin however she did have a positive UA 3-patient urine culture did grow E. coli that is sensitive to Zosyn as well as Rocephin, patient has received adequate Zosyn as well as Omnicef, currently being monitored closely off antibiotic therapy Dictation was produced using [employer] dictation software. please excuse any gramm atical, word or spelling errors. Time with Patient: Less than 30
[2024-03-23 16:24] LABS: Glucose,Whole Blood 176 mg/dL (70-110)
[2024-03-23 20:30] LABS: Glucose,Whole Blood 214 mg/dL (70-110)
[2024-03-24 05:06] LABS: African American GFR (CKD) 60 (>60 ml/min/1.73 sqM); Anion Gap 6 mmol/L; Blood Urea Nitrogen 21 mg/dL (7-17); Calcium 9.3 mg/dL (8.4-10.2); Carbon Dioxide 29 mmol/L (22-30); Chloride 109 mmol/L (98-107); Glucose 156 mg/dL (74-99); Non-African American GFR(CKD) 52 (>60 ml/min/1.73 sqM); Potassium 4.2 mmol/L (3.5-5.1); Sodium 144 mmol/L (137-145)
[2024-03-24 06:03] LABS: Glucose,Whole Blood 150 mg/dL (70-110)
--- NOTE | 2024-03-24 11:17 | P.PN ---
Subjective Patient is seen in follow-up for acute kidney injury. Renal function better. Sodium level normal. On oral Lasix. Nonoliguric. Family present at bedside. Vital signs stable. General: No acute distress. Sitting up in chair. HEENT: Head exam is unremarkable. On nasal cannula. LUNGS: No audible rhonchi or wheezes. HEART: Regular rate and rhythm. ABDOMEN: Nontender. EXTREMITITES: No edema. Objective - Vital Signs Vital signs: Vital Signs Temp 97.7 F 03/24/24 07:00 Pulse 95 03/24/24 09:26 Resp 18 03/24/24 07:00 BP 138/90 03/24/24 07:00 Pulse Ox 93 L 03/24/24 07:00 FiO2 21 03/23/24 09:26 Intake & Output 03/23/24 03/24/24 03/24/24 18:59 06:59 18:59 Intake Total 120 Balance 120 Weight 85 kg Intake: Oral 120 Other: Voiding Method Diaper Bedpan Diaper Incontinent Diaper Incontinent # Voids 1 3 - Labs CBC & Chem 7: 03/19/24 07:44 03/24/24 03:30 Labs: Abnormal Lab Results - Last 24 Hours (Table) 03/23/24 03/23/24 03/23/24 Range/Units 11:49 16:23 20:27 Chloride (98-107) mmol/L BUN (7-17) mg/dL Glucose (74-99) mg/dL POC Glucose (mg/dL) 171 H 176 H 214 H (70-110) mg/dL 03/24/24 03/24/24 Range/Units 03:30 06:02 Chloride 109 H (98-107) mmol/L BUN 21 H (7-17) mg/dL Glucose 156 H (74-99) mg/dL POC Glucose (mg/dL) 150 H (70-110) mg/dL Assessment and Plan Plan: Assessment: 1. Acute kidney injury secondary to ATN secondary to cardiorenal syndrome and hemodynamic instability. Creatinine improved to 1.03 today. No hydronephrosis noted on kidney ultrasound. Both kidneys atrophic. 2. Chronic kidney disease stage IIIa with baseline creatinine 1.1-1.2 in October and November 2023. 3. A-fib with RVR. On oral amiodarone, Cardizem and Lopressor. Cardiology following. 4. Diabetes mellitus. 5. Acute on chronic systolic CHF with ejection fraction of 25 to 30% with mild to moderate mitral and tricuspid regurgitation and moderate pulmonary hypertension noted on echocardiogram done October 2023. Per cardiology, EF is now 45 to 50%. 6. Volume overload. Improved with diuresis. 7. Hypothyroidism maintained on Synthroid. 8. Mild hypernatremia from lack of oral water intake. s/p D5W. Better. 9. E. coli UTI s/p antibiotics. 10. Hypokalemia from diuresis. Replaced. Improved. Plan: Maintain lasix. Avoid nephrotoxins. Continue to monitor renal function and urine output. Encouraged oral intake. Potential discharge to rehab today. Follow-up outpatient 1 week postdischarge.
[2024-03-24 11:33] LABS: Glucose,Whole Blood 251 mg/dL (70-110)
--- NOTE | 2024-03-24 12:17 | P.DS ---
Providers Date of admission: 03/05/24 02:34 Expected date of discharge: 03/24/24 Attending physician: Verna Baez MD Consults: 03/05/24 02:33 Consult Physician Routine Consulting Provider: Bacilio Hunt Consult Reason/Comments: Acute altered mental status Do you want consulting provider notified?: Yes 03/07/24 14:32 Consult Physician Routine Consulting Provider: Yina Allan Consult Reason/Comments: JANNETH Do you want consulting provider notified?: Yes 03/08/24 14:52 Consult Physician Routine Consulting Provider: Darrell Tsai Consult Reason/Comments: Altered mental status, bedbugs lesions, r/o cellulitis, pneumonia Do you want consulting provider notified?: Yes 03/19/24 18:13 Consult Physician Routine Consulting Provider: Riaz Rolle Consult Reason/Comments: Psychosis/delirium Do you want consulting provider notified?: Yes Primary care physician: [facility] Course: Patient is a 78-year-old female with known hypertension, dyslipidemia, and A-fib who presented to the emergency department with altered mentation for the previous 2 weeks. Patient was recently being treated for urinary tract infection with Cipro and then nitrofurantoin. On arrival labs were remarkable for creatinine of 1.21 which appears to be at patient's baseline. She had mildly elevated bilirubin at 2.3, AST 65, and ALT of 60. Urinalysis was negative. Urine drug screen was positive for benzodiazepines. She underwent chest x-ray which showed cardiomegaly and COPD. She underwent CT head which demonstrated no acute intracranial process with remote left periventricular white matter changes consistent with small vessel ischemic disease. She was admitted and subsequently underwent liver ultrasound which demonstrated small right renal cyst. She was followed by neurology and GI. She underwent repeat head CT which again showed no acute process. She underwent EEG which demonstrated moderate to severe background slowing consistent with toxic metabolic encephalopathy. She had carotid Dopplers performed which were nondiagnostic as patient was combative. B12 and folate were normal. Ammonia was negative. Syphilis Ab was negative. TSH was elevated at 14.9, FT4 1.76. MR Brain w/wo contrast shows no acute findings. Her altered mental status was thought to be multifactorial due to UTI, undertreated hypothyroidism and delirium. UA was positive and UCx grew >100k E. coli. BCx negative. Procal negative. CRP mildly elevated 1.3. ID consulted, received Zosyn and Rocephin, completed course of antibiotics with Cefdinir. She developed fluid overload and cardiology was subsequently consulted. It came to light that patient had history of dilated cardiomyopathy and with current ejection fraction 45 to 50%. She was diuresed with Lasix IV and medications were adjusted with regard to her A-Fib. GI was consulted and the patient had hepatitis serologies performed which were negative, and negative antimitochondrial antibody, ceruloplasmin, and a normal alpha 1 antitrypsin, AFP and YANET. GI recommended holding Lipitor. HbA1c was elevated at 8 consistent with new onset diabetes. She developed worsening JANNETH which was felt to be due to cardiorenal syndrome and nephrology was consulted. Her renal function improved to baseline at the time of discharge. 03/24 Patient was seen and examined. Sleeping comfortably. Wakes up with arousal. Daughter at bedside requesting repeat UA due to increased sleepiness. Plans for discharge to [facility] today. Plans to follow up with Cardiology, Nephrology, Gastroenterology in the outpatient setting. Follow up with PCP for DM management and repeat thyroid function testing and further titration of Synthroid in the outpatient setting. General: non toxic, no distress, appears at stated age Derm: warm, dry Head: atraumatic, normocephalic, symmetric Eyes: EOMI, no lid lag, anicteric sclera Mouth: no lip lesion, mucus membranes moist Cardiovascular: S1S2 reg, no murmur Lungs: CTA bilateral, no rhonchi, no rales , no accessory muscle use Ext: no gross muscle atrophy, no edema, no contractures Neuro: no focal neuro deficits Psych: Sleepy but easy arousal Discharge Diagnosis: Acute encephalopathy with history of underlying dementia likely due undertreated hypothyroidism and UTI with component of delirium Acute hypoxic respiratory failure due to systolic congestive heart failure exacerbation with ejection fraction 45 to 50% Persistent atrial fibrillation, rate controlled Hypertension Transaminitis associated with hyperbilirubinemia, stable JANNETH on CKD stage III Newly discovered diabetes type II with A1c of 8 Bedbug infestation on arrival This complex discharge took 35 minutes to complete. Patient Condition at Discharge: Stable Plan - Discharge Summary New Discharge Prescriptions: New Furosemide [Lasix] 20 mg PO Q48H tab Memantine [Namenda] 5 mg PO BID tab QUEtiapine [SEROquel] 12.5 mg PO HS PRN tab PRN Reason: Agitation Or Acute Anxiety Levothyroxine Sodium [Synthroid] 75 mcg PO DAILY@0630 tab Amiodarone [Cordarone] 200 mg PO BID tab Metoprolol Tartrate [Lopressor] 150 mg PO BID tab amLODIPine [Norvasc] 10 mg PO DAILY tab Continue FLUoxetine HCL [PROzac] 60 mg PO DAILY allopurinoL [Zyloprim] 300 mg PO HS Zafirlukast [Accolate] 20 mg PO BID Multivitamins, Thera [Multivitamin (formulary)] 1 tab PO DAILY Atorvastatin [Lipitor] 40 mg PO HS #90 tablet Nitroglycerin Sl Tabs [Nitrostat] 0.4 mg SUBLINGUAL Q5M PRN #100 tab PRN Reason: Chest Pain Clopidogrel [Plavix] 75 mg PO DAILY #90 tab ALPRAZolam [Xanax] 0.25 mg PO BID PRN #6 tab PRN Reason: Anxiety Apixaban [Eliquis] 5 mg PO BID #60 tab Cholecalciferol [Vitamin D3 (25 Mcg = 1000 Iu)] 50 mcg PO DAILY Discontinued Levothyroxine Sodium [Synthroid] 50 mcg PO DAILY Metoprolol Succinate [Toprol XL] 100 mg PO DAILY #90 tab Losartan [Cozaar] 25 mg PO HS Furosemide [Lasix] 40 mg PO DAILY Spironolactone [Aldactone] 25 mg PO DAILY Discharge Medication List FLUoxetine HCL [PROzac] 60 mg PO DAILY 08/02/20 [History] Multivitamins, Thera [Multivitamin (formulary)] 1 tab PO DAILY 08/02/20 [History] Zafirlukast [Accolate] 20 mg PO BID 08/02/20 [History] allopurinoL [Zyloprim] 300 mg PO HS 08/02/20 [History] Apixaban [Eliquis] 5 mg PO BID #60 tab 10/16/23 [Rx] Atorvastatin [Lipitor] 40 mg PO HS #90 tablet 11/08/23 [Rx] Clopidogrel [Plavix] 75 mg PO DAILY #90 tab 11/08/23 [Rx] Nitroglycerin Sl Tabs [Nitrostat] 0.4 mg SUBLINGUAL Q5M PRN #100 tab 11/08/23 [Rx] Cholecalciferol [Vitamin D3 (25 Mcg = 1000 Iu)] 50 mcg PO DAILY 03/04/24 [History] ALPRAZolam [Xanax] 0.25 mg PO BID PRN #6 tab 03/24/24 [Rx] Amiodarone [Cordarone] 200 mg PO BID tab 03/24/24 [Rx] Furosemide [Lasix] 20 mg PO Q48H tab 03/24/24 [Rx] Levothyroxine Sodium [Synthroid] 75 mcg PO DAILY@0630 tab 03/24/24 [Rx] Memantine [Namenda] 5 mg PO BID tab 03/24/24 [Rx] Metoprolol Tartrate [Lopressor] 150 mg PO BID tab 03/24/24 [Rx] QUEtiapine [SEROquel] 12.5 mg PO HS PRN tab 03/24/24 [Rx] amLODIPine [Norvasc] 10 mg PO DAILY tab 03/24/24 [Rx] Follow up Appointment(s)/Referral(s): Naomie Ndiaye, SOHAN [REFERRING] - 1 Week (Gastroenterology follow-up for elevated liver function tests) Blas Williamson DO [Primary Care Provider] - 1-2 days Patient Instructions/Handouts: Altered Mental Status (ED)
[2024-03-24 14:27] LABS: Appearance,Urine Turbid (Clear); Bilirubin,Urine Negative (Negative); Blood,Urine Moderate (Negative); Color,Urine Light Yellow; Glucose,Urine (UA) Trace (Negative); Ketones,Urine Negative (Negative); Leukocyte Esterase,Urine Large (Negative); Nitrite,Urine Negative (Negative); PH, Urine 6.5 (5.0-8.0); Protein,Urine 1+ (Negative); Specific Gravity,Urine 1.016 (1.001-1.035); Urobilinogen,Urine <2.0 mg/dL (<2.0)
[2024-03-24 14:32] LABS: Mucus,Urine Rare /hpf; RBC,Urine 27 /hpf (0-5); Squamous Epithelial Cell,Urine 2 /hpf (0-4); WBC,Urine >182 /hpf (0-5)
--- NOTE | 2024-03-24 15:04 | XR ---
EXAMINATION TYPE: XR chest 1V portable DATE OF EXAM: 03/24/2024 COMPARISON: 03/11/2024 INDICATION: Low O2 sat TECHNIQUE: Single frontal view of the chest is obtained. FINDINGS: The heart size is rounded prominence. The pulmonary vasculature is normal. Left lower lobe infiltrate is present. Some perihilar and traits are present. IMPRESSION: 1. Left lower lobe infiltrate and increasing perihilar infiltrates. Continued follow-up is recommende d
[2024-03-24 16:43] LABS: Glucose,Whole Blood 171 mg/dL (70-110)
--- NOTE | 2024-03-24 17:47 | P.PN ---
Subjective Progress Note Date: 03/24/24 I have seen this patient during this admission and is seeing her last on 03/14/2024 and since seen her last Dr. Hunt was managing her care from a neurologic perspective. Please refer to Dr. Hunt's note for further details. Patient continues to have confusion. Patient's is at bedside and he stated yesterday she was talking very well conversing making sense and today she is very sleepy and confused. It seems that she is waxing and waning. Objective - Vital Signs Vital signs: Vital Signs Temp 97.6 F 03/24/24 14:00 Pulse 87 03/24/24 14:00 Resp 18 03/24/24 14:00 BP 126/88 03/24/24 14:00 Pulse Ox 89 L 03/24/24 14:00 FiO2 21 03/23/24 09:26 Intake & Output 03/23/24 03/24/24 03/24/24 18:59 06:59 18:59 Intake Total 438 Balance 438 Weight 85 kg Intake: Oral 438 Other: Voiding Method Diaper Bedpan Diaper Incontinent Diaper Incontinent # Voids 1 3 - Exam General: Lying in bed and does not appear in acute distress. HENT: Supple neck Neuro: Limited. Is moderate drowsy but is awakeable to verbal stimuli. Patient is oriented to self after the second try. Alternating her 's name correctly. She is able to name objects and some of them correctly such as pen. Second and third tries she got watch and glasses correct. Sometimes she is talking gibberish. No facial weakness. No dysarthria. Motor is limited but she is lifting the right upper extremity above gravity. - Labs CBC & Chem 7: 03/19/24 07:44 03/24/24 03:30 Labs: Abnormal Lab Results - Last 24 Hours (Table) 03/23/24 03/24/24 03/24/24 Range/Units 20:27 03:30 06:02 Chloride 109 H (98-107) mmol/L BUN 21 H (7-17) mg/dL Glucose 156 H (74-99) mg/dL POC Glucose (mg/dL) 214 H 150 H (70-110) mg/dL Urine Appearance (Clear) Urine Protein (Negative) Urine Glucose (UA) (Negative) Urine Blood (Negative) Ur Leukocyte Esterase (Negative) Urine RBC (0-5) /hpf Urine WBC (0-5) /hpf Urine WBC Clumps (None) /hpf Urine Mucus (None) /hpf 03/24/24 03/24/24 03/24/24 Range/Units 11:31 13:44 16:42 Chloride (98-107) mmol/L BUN (7-17) mg/dL Glucose (74-99) mg/dL POC Glucose (mg/dL) 251 H 171 H (70-110) mg/dL Urine Appearance Turbid H (Clear) Urine Protein 1+ H (Negative) Urine Glucose (UA) Trace H (Negative) Urine Blood Moderate H (Negative) Ur Leukocyte Esterase Large H (Negative) Urine RBC 27 H (0-5) /hpf Urine WBC >182 H (0-5) /hpf Urine WBC Clumps Moderate H (None) /hpf Urine Mucus Rare H (None) /hpf Assessment and Plan Assessment: * Delirium. Per yesterday she was conversing really well had no issues. She is more confused and sleepy. * Probable underlying dementia. 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 * Elevated hemoglobin A1c 8.0, probable with new onset diabetes. * Acute kidney injury, today further better * Elevated liver enzymes, today further better * Congestive heart failure with EF 25% * COPD * Hypothyroidism, getting worse * Poor social condition with bedbugs infestation. Status post decontamination Plan: * Patient does have history of progressive memory loss going on for almost 1 year. She has been forgetful. Suspect patient probably has some component of underlying dementia. As patient's condition is not improving, we will empirically start Namenda 5 mg twice daily. Possible side effects were discussed. * Patient's neck is supple. Her temperatures are normal. White cells are normal. Chances of intracranial infection is very low due to reasons mentioned above. In order to perform lumbar puncture patient has to be put on hold on Eliquis and Plavix. And Dr. Hnut recommending to pursue the lumbar puncture but upon talking with the patient's he is reluctant Especially since her mentation was doing better yesterday, I feel like this is more delirium and not underlying [employer] infection. * MRI of the brain with and without contrast was suboptimal study with motion artifact. No MRI evidence for recent infarct. Mild diffuse age-related cerebral atrophy and chronic small vessel ischemic change artery redemonstrated. No suspicious enhancement noted. I personally reviewed MRI agree with the findings. * Patient now diagnosed with acute E. coli UTI, started on Zosyn. ID following. * Patient's renal functions, and liver functions have improved, but still abnormal. * GI has seen the patient, ordered labs. Reviewed notes. * Carotid Doppler could not be performed as patient was not cooperative. * Repeat EEG 03/17/2024 was abnormal due to background slowing of moderate degree. This is suggestive of generalized cerebral dysfunction as can be seen with toxic metabolic encephalopathy or related to diffuse structural brain a bnormality. Clinical correlation is recommended. No epileptiform activity was seen. When compared to the EEG from 03/06/2024, the background has improved. * B12 1659, folate 30.9, MMA, B6 11. Ammonia is < 9. * Hemoglobin A1c 8.0, consistent with new onset diabetes. Patient does have history of borderline diabetes in the past. Will defer to IM. * Patient has atrial fibrillation, currently on Eliquis 5 mg twice daily and Plavix. These will be continued. * Patient's thyroid functions are abnormal. We will defer to IM. * Treatment of other medical conditions as per IM. Discussed with the patient's who is at bedside and the primary team Time with Patient: Less than 30
--- NOTE | 2024-03-24 18:02 | P.PN ---
Subjective Progress Note Date: 03/24/24 Principal diagnosis: Reason for follow-up is urinary tract infection Patient is a 78-year-old female with a past medical history significant for hypertension hyperlipidemia sleep apnea atrial fibrillation patient has been brought into the hospital on 03/04/2024 for evaluation of increasing confusion, initial consult placed for bug bites and concern for possible cellulitis. On today's evaluation that is 03/24/2024, the patient continues to be afebrile, the patient is on room air and breathing comfortably, the Pt overall mentation has improved and more active she was in the restroom having a bowel movement no vomiting or diarrhea reported by the nursing staff. No new labs has been obtained today Objective - Vital Signs Vital signs: Vital Signs Temp 97.7 F 03/24/24 07:00 Pulse 95 03/24/24 09:26 Resp 18 03/24/24 07:00 BP 138/90 03/24/24 07:00 Pulse Ox 93 L 03/24/24 07:00 FiO2 21 03/23/24 09:26 Intake & Output 03/23/24 03/24/24 03/24/24 18:59 06:59 18:59 Intake Total 238 Balance 238 Weight 85 kg Intake: Oral 238 Other: Voiding Method Diaper Bedpan Diaper Incontinent Diaper Incontinent # Voids 1 3 - Labs CBC & Chem 7: 03/19/24 07:44 03/24/24 03:30 Labs: Abnormal Lab Results - Last 24 Hours (Table) 03/23/24 03/23/24 03/24/24 Range/Units 16:23 20:27 03:30 Chloride 109 H (98-107) mmol/L BUN 21 H (7-17) mg/dL Glucose 156 H (74-99) mg/dL POC Glucose (mg/dL) 176 H 214 H (70-110) mg/dL 03/24/24 03/24/24 Range/Units 06:02 11:31 Chloride (98-107) mmol/L BUN (7-17) mg/dL Glucose (74-99) mg/dL POC Glucose (mg/dL) 150 H 251 H (70-110) mg/dL Assessment and Plan (1) Urinary tract infection Current Visit: Yes Status: Acute Code(s): N39.0 - URINARY TRACT INFECTION, SITE NOT SPECIFIED SNOMED Code(s): 11755604 Plan: T 1patient presented to hospital mental status changes likely multifactorial patient did have multiple bug bites to the lower extremity however those are drying out with no evidence of any active cellulitis at the same time the patient did have a chest x-ray with bibasilar infiltrate more likely representing atelectasis clinically not behaving as pneumonia in this patient with no fever or elevated white count 2-patient did have normal procalcitonin however she did have a positive UA 3-patient has received adequate antibiotic for her E. coli urinary tract infection and currently being monitored closely off antibiotic therapy Dictation was produced using [employer] dictation software. please excuse any grammatical, word or spelling errors. Time with Patient: Less than 30
[2024-03-24 20:17] LABS: Glucose,Whole Blood 178 mg/dL (70-110)
[2024-03-25 05:36] LABS: Glucose,Whole Blood 162 mg/dL (70-110)
[2024-03-25] MEDS: PIPERACILLIN-TAZOBACTAM 3.375 GM in SODIUM CHLORIDE 0.9% 100 ML IVPB STA (10:52)
--- NOTE | 2024-03-25 11:14 | P.PN ---
Subjective Progress Note Date: 03/25/24 Patient is a 78-year-old female with known hypertension, dyslipidemia, and A-fib who presented to the emergency department with altered mentation for the previous 2 weeks. Patient was recently being treated for urinary tract infection with Cipro and then nitrofurantoin. On arrival labs were remarkable f or creatinine of 1.21 which appears to be at patient's baseline. She had mildly elevated bilirubin at 2.3, AST 65, and ALT of 60. Urinalysis was negative. Urine drug screen was positive for benzodiazepines. She underwent chest x-ray which showed cardiomegaly and COPD. She underwent CT head which demonstrated no acute intracranial process with remote left periventricular white matter changes consistent with small vessel ischemic disease. She was admitted and subsequently underwent liver ultrasound which demonstrated small right renal cyst. She was followed by neurology and GI. She underwent repeat head CT which again showed no acute process. She underwent EEG which demonstrated moderate to severe background slowing consistent with toxic metabolic encephalopathy. She had carotid Dopplers performed which were nondiagnostic as patient was combative. B12 and folate were normal. Ammonia was negative. Syphilis Ab was negative. TSH was elevated at 14.9, FT4 1.76. MR Brain w/wo contrast shows no acute findings. Her altered mental status was thought to be multifactorial due to UTI, undertreated hypothyroidism and delirium. UA was positive and UCx grew >100k E. coli. BCx negative. Procal negative. CRP mildly elevated 1.3. ID consulted, received Zosyn and Rocephin, completed course of antibiotics with Cefdinir. She developed fluid overload and cardiology was subsequently consulted. It came to light that patient had history of dilated cardiomyopathy and with current ejection fraction 45 to 50%. She was diuresed with Lasix IV and medications were adjusted with regard to her A-Fib. GI was consulted and the patient had hepatitis serologies performed which were negative, and negative antimitochondrial antibody, ceruloplasmin, and a normal alpha 1 antitrypsin, AFP and YANET. GI recommended holding Lipitor. HbA1c was elevated at 8 consistent with new onset diabetes. She developed worsening JANNETH which was felt to be due to cardiorenal syndrome and nephrology was consulted. Her renal function improved to baseline at the time of discharge. 03/24 Patient was seen and examined. Sleeping comfortably. Wakes up with arousal. Daughter at bedside requesting repeat UA due to increased sleepiness. BMP Cl 109, BUN 21, glu 156. 03/25 Patient was seen and examined. Patient slept most of the day yesterday. She continues to be lethargic. She wakes up easily but goes back to sleep. She was noted to require 2L O2 as well. UA was ordered which showed turbid, moderate blood, large LE. CXR shows increased left sided infiltrates. I restarted the patient on Zosyn today for treatment of UTI and possible aspiration PNA. She will also be given a dose of Lasix 40 mg IV x 1. General: non toxic, no distress, appears at stated age Derm: warm, dry Head: atraumatic, normocephalic, symmetric Eyes: EOMI, no lid lag, anicteric sclera Mouth: no lip lesion, mucus membranes moist Cardiovascular: S1S2 reg, no murmur Lungs: CTA bilateral, no rhonchi, no rales , no accessory muscle use Ext: no gross muscle atrophy, no edema, no contractures Neuro: no focal neuro deficits Psych: Sleepy but easy arousal Acute encephalopathy with history of underlying dementia likely due undertreated hypothyroidism and UTI with component of delirium Acute hypoxic respiratory failure due to systolic congestive heart failure exacerbation with ejection fraction 45 to 50% Persistent atrial fibrillation, rate controlled Hypertension Transaminitis associated with hyperbilirubinemia, stable JANNETH on CKD stage III Newly discovered diabetes type II with A1c of 8 Bedbug infestation on arrival UA and CXR reviewed. Restart Zosyn 3.375 g IV TID for treatment of UTI and possible aspiration. Check urine culture and procalcitonin. Lasix 40 mg IV x 1 ordered today. Supplemental O2 to maintain O2 saturation > 92%. Repeat CBC and BMP tomorrow morning. Discussed management and plan with daughter, and RN. Discharge Plans: [facility]. Plans to follow up with Cardiology, Nephrology, Gastroenterology in the outpatient setting. Follow up with PCP for DM management and repeat thyroid function testing and further titration of Synthroid in the outpatient setting. Objective - Vital Signs Vital signs: Vital Signs Temp 97.3 F L 03/25/24 07:22 Pulse 75 03/25/24 07:22 Resp 18 03/25/24 07:22 BP 115/82 03/25/24 09:23 Pulse Ox 96 03/25/24 09:30 FiO2 21 03/23/24 09:26 Intake & Output 03/24/24 03/25/24 03/25/24 18:59 06:59 18:59 Intake Total 438 Output Total 400 680 Balance 38 -680 Weight 84.5 kg Intake: Oral 438 Output: Urine 400 400 Uretheral (Navarrete) 400 Post Void Residual 280 Other: Voiding Method Diaper Diaper Diaper Incontinent Incontinent Incontinent - Labs CBC & Chem 7: 03/19/24 07:44 03/24/24 03:30 Labs: Abnormal Lab Results - Last 24 Hours (Table) 03/24/24 03/24/24 03/24/24 Range/Units 11:31 13:44 16:42 POC Glucose (mg/dL) 251 H 171 H (70-110) mg/dL Urine Appearance Turbid H (Clear) Urine Protein 1+ H (Negative) Urine Glucose (UA) Trace H (Negative) Urine Blood Moderate H (Negative) Ur Leukocyte Esterase Large H (Negative) Urine RBC 27 H (0-5) /hpf Urine WBC >182 H (0-5) /hpf Urine WBC Clumps Moderate H (None) /hpf Urine Mucus Rare H (None) /hpf 03/24/24 03/25/24 Range/Units 20:15 05:34 POC Glucose (mg/dL) 178 H 162 H (70-110) mg/dL Urine Appearance (Clear) Urine Protein (Negative) Urine Glucose (UA) (Negative) Urine Blood (Negative) Ur Leukocyte Esterase (Negative) Urine RBC (0-5) /hpf Urine WBC (0-5) /hpf Urine WBC Clumps (None) /hpf Urine Mucus (None) /hpf
--- NOTE | 2024-03-25 11:44 | P.PN ---
Subjective Patient is seen in follow-up for acute kidney injury. Renal function improved with creatinine 1.03 yesterday. Sodium level was also normal. On oral Lasix. Nonoliguric. Patient more lethargic today. Family present at bedside. Vital signs stable. General: No acute distress. Resting in bed. HEENT: Head exam is unremarkable. On nasal cannula. LUNGS: No audible rhonchi or wheezes. HEART: Regular rate and rhythm. ABDOMEN: Nontender. EXTREMITITES: No edema. Objective - Vital Signs Vital signs: Vital Signs Temp 97.3 F L 03/25/24 07:22 Pulse 75 03/25/24 07:22 Resp 18 03/25/24 07:22 BP 115/82 03/25/24 09:23 Pulse Ox 96 03/25/24 09:30 FiO2 21 03/23/24 09:26 Intake & Output 03/24/24 03/25/24 03/25/24 18:59 06:59 18:59 Intake Total 438 Output Total 400 680 Balance 38 -680 Weight 84.5 kg Intake: Oral 438 Output: Urine 400 400 Uretheral (Navarrete) 400 Post Void Residual 280 Other: Voiding Method Diaper Diaper Diaper Incontinent Incontinent Incontinent - Labs CBC & Chem 7: 03/19/24 07:44 03/24/24 03:30 Labs: Abnormal Lab Results - Last 24 Hours (Table) 03/24/24 03/24/24 03/24/24 Range/Units 13:44 16:42 20:15 POC Glucose (mg/dL) 171 H 178 H (70-110) mg/dL Urine Appearance Turbid H (Clear) Urine Protein 1+ H (Negative) Urine Glucose (UA) Trace H (Negative) Urine Blood Moderate H (Negative) Ur Leukocyte Esterase Large H (Negative) Urine RBC 27 H (0-5) /hpf Urine WBC >182 H (0-5) /hpf Urine WBC Clumps Moderate H (None) /hpf Urine Mucus Rare H (None) /hpf 03/25/24 Range/Units 05:34 POC Glucose (mg/dL) 162 H (70-110) mg/dL Urine Appearance (Clear) Urine Protein (Negative) Urine Glucose (UA) (Negative) Urine Blood (Negative) Ur Leukocyte Esterase (Negative) Urine RBC (0-5) /hpf Urine WBC (0-5) /hpf Urine WBC Clumps (None) /hpf Urine Mucus (None) /hpf Assessment and Plan Plan: Assessment: 1. Acute kidney injury secondary to ATN secondary to cardiorenal syndrome and hemodynamic instability. Creatinine improved to 1.03 as of yesterday. No hydronephrosis noted on kidney ultrasound. Both kidneys atrophic. 2. Chronic kidney disease stage IIIa with baseline creatinine 1.1-1.2 in October and November 2023. 3. A-fib with RVR. On oral amiodarone, Cardizem and Lopressor. Cardiology following. 4. Diabetes mellitus. 5. Acute on chronic systolic CHF with ejection fraction of 25 to 30% with mild to moderate mitral and tricuspid regurgitation and moderate pulmonary hypertension noted on echocardiogram done October 2023. Per cardiology, EF is now 45 to 50%. 6. Volume overload. Improved with diuresis. 7. Hypothyroidism maintained on Synthroid. 8. Mild hypernatremia from lack of oral water intake. s/p D5W. Better. 9. E. coli UTI s/p antibiotics. UA again suggestive of UTI. Back on antibiotics. 10. Hypokalemia from diuresis. Replaced. Improved. Plan: Maintain lasix. Avoid nephrotoxins. Continue to monitor renal function and urine output. Encouraged oral intake. Awaits discharge to rehab today. Follow-up outpatient 1 week postdischarge.
[2024-03-25 11:54] LABS: Glucose,Whole Blood 139 mg/dL (70-110)
[2024-03-25] MEDS: FUROSEMIDE 10 MG/ML 4 ML VIAL IV STA (11:55)
[2024-03-25] MEDS: PIPERACILLIN-TAZOBACTAM 3.375 GM in SODIUM CHLORIDE 0.9% 100 ML IVPB SCH (16:25)
[2024-03-25 16:45] LABS: Glucose,Whole Blood 179 mg/dL (70-110)
[2024-03-25 20:11] LABS: Glucose,Whole Blood 179 mg/dL (70-110)
[2024-03-26 05:38] LABS: Glucose,Whole Blood 156 mg/dL (70-110)
--- NOTE | 2024-03-26 08:06 | XR ---
EXAMINATION TYPE: XR chest 1V portable DATE OF EXAM: 03/26/2024 HISTORY: Shortness of breath. COMPARISON: 03/24/2024 TECHNIQUE: Single view of the chest is submitted. FINDINGS: Demonstrated are scattered senescent parenchymal change. No change in perihilar and basilar infiltrates. The heart is stable. Hilar and mediastinal structures are within normal limits. Degenerative changes are seen of the dorsal spine. IMPRESSION: No change in perihilar and basilar infiltrates.
[2024-03-26 08:24] VITALS: BMI 30.9
[2024-03-26 08:30] VITALS: TEMP 97.8
[2024-03-26] MEDS: FUROSEMIDE 10 MG/ML 4 ML VIAL IV SCH (08:35)
[2024-03-26 08:44] LABS: BUN/Creat Ratio 15.25 Ratio (12.00-20.00); Blood Urea Nitrogen 18.3 mg/dL (9.0-27.0); Calcium 8.5 mg/dL (8.7-10.3); Carbon Dioxide 25.7 mmol/L (21.6-31.8); Chloride 106 mmol/L (96-109); Glucose 179 mg/dL (70-110); Magnesium 1.7 mg/dL (1.5-2.4); Potassium 3.2 mmol/L (3.5-5.5); Sodium 145 mmol/L (135-145)
[2024-03-26 09:01] LABS: Anisocytosis Slight; HCT 49.3 % (34.0-46.0); HGB 15.4 gm/dL (11.4-16.0); Hypochromasia Slight; MCH 32.3 pg (25.0-35.0); MCHC 31.3 g/dL (31.0-37.0); MCV 103.4 fL (80.0-100.0); Macrocytosis Moderate; Mean Platelet Volume 10.4; Platelet Count 223 k/uL (150-450); RBC 4.77 m/uL (3.80-5.40); RDW 16.5 % (11.5-15.5); WBC 9.7 k/uL (3.8-10.6)
[2024-03-26 09:46] LABS: African American GFR (CKD) 60 (>60 ml/min/1.73 sqM); Anion Gap 5 mmol/L; Blood Urea Nitrogen 20 mg/dL (7-17); Calcium 8.9 mg/dL (8.4-10.2); Carbon Dioxide 30 mmol/L (22-30); Chloride 106 mmol/L (98-107); Glucose 174 mg/dL (74-99); Non-African American GFR(CKD) 52 (>60 ml/min/1.73 sqM); Potassium 3.5 mmol/L (3.5-5.1); Sodium 141 mmol/L (137-145)
--- NOTE | 2024-03-26 10:53 | P.DS ---
Providers Date of admission: 03/05/24 02:34 Expected date of discharge: 03/26/24 Attending physician: Verna Baez MD Consults: 03/05/24 02:33 Consult Physician Routine Consulting Provider: Bacilio Hunt Consult Reason/Comments: Acute altered mental status Do you want consulting provider notified?: Yes 03/07/24 14:32 Consult Physician Routine Consulting Provider: Yina Allan Consult Reason/Comments: JANNETH Do you want consulting provider notified?: Yes 03/08/24 14:52 Consult Physician Routine Consulting Provider: Darrell Tsai Consult Reason/Comments: Altered mental status, bedbugs lesions, r/o cellulitis, pneumonia Do you want consulting provider notified?: Yes 03/19/24 18:13 Consult Physician Routine Consulting Provider: Riaz Rolle Consult Reason/Comments: Psychosis/delirium Do you want consulting provider notified?: Yes Primary care physician: McPherson Hospital Course: Patient is a 78-year-old female with known hypertension, dyslipidemia, and A-fib who presented to the emergency department with altered mentation for the previous 2 weeks. Patient was recently being treated for urinary tract infection with Cipro and then nitrofurantoin. On arrival labs were remarkable for creatinine of 1.21 which appears to be at patient's baseline. She had mildly elevated bilirubin at 2.3, AST 65, and ALT of 60. Urinalysis was negative. Urine drug screen was positive for benzodiazepines. She underwent chest x-ray which showed cardiomegaly and COPD. She underwent CT head which demonstrated no acute intracranial process with remote left periventricular white matter changes consistent with small vessel ischemic disease. She was admitted and subsequently underwent liver ultrasound which demonstrated small right renal cyst. She was followed by neurology and GI. She underwent repeat head CT which again showed no acute process. She underwent EEG which demonstrated moderate to severe background slowing consistent with toxic metabolic encephalopathy. She had carotid Dopplers performed which were nondiagnostic as patient was combative. B12 and folate were normal. Ammonia was negative. Syphilis Ab was negative. TSH was elevated at 14.9, FT4 1.76. MR Brain w/wo contrast shows no acute findings. Her altered mental status was thought to be multifactorial due to UTI, undertreated hypothyroidism and delirium. UA was positive and UCx grew >100k E. coli. BCx negative. Procal negative. CRP mildly elevated 1.3. ID consulted, received Zosyn and Rocephin, completed course of antibiotics with Cefdinir. She developed fluid overload and cardiology was subsequently consulted. It came to light that patient had history of dilated cardiomyopathy and with current ejection fraction 45 to 50%. She was diuresed with Lasix IV and medications were adjusted with regard to her A-Fib. GI was consulted and the patient had hepatitis serologies performed which were negative, and negative antimitochondrial antibody, ceruloplasmin, and a normal alpha 1 antitrypsin, AFP and YANET. GI recommended holding Lipitor. HbA1c was elevated at 8 consistent with new onset diabetes. She developed worsening JANNETH which was felt to be due to cardiorenal syndrome and nephrology was consulted. Her renal function improved to baseline at the time of discharge. CBC Hct 29.3 MCV 103.4. BMP BUN 20, glu 174. Mag 1.8. 03/24 Patient was seen and examined. Sleeping comfortably. Wakes up with arousal. Daughter at bedside requesting repeat UA due to increased sleepiness. BMP Cl 109, BUN 21, glu 156. 03/25 Patient was seen and examined. Patient slept most of the day yesterday. She continues to be lethargic. She wakes up easily but goes back to sleep. She was noted to require 2L O2 as well. UA was ordered which showed turbid, moderate blood, large LE. CXR shows increased left sided infiltrates. I restarted the patient on Zosyn today for treatment of UTI and possible aspiration PNA. She will also be given a dose of Lasix 40 mg IV x 1. 03/26 Patient was seen and examined. More awake. CXR done today shows slightly improved aeration of the lungs. Her procal is negative. Her lethargy is less likely an infectious source. Plans for discharge to [facility] today. Plans to follow up with Cardiology, Nephrology, Gastroenterology in the outpatient setting. Follow up with PCP for DM management and repeat thyroid function testing and further titration of Synthroid in the outpatient setting. We will prescribe Bumex 1 mg PO QD for 7 days followed by Lasix 20 mg PO Q48H. Repeat BMP in 3 days. Wean oxygen as tolerated. Diet should be NDD3 with 1:1 assist to prevent aspiration. General: non toxic, no distress, appears at stated age Derm: warm, dry Head: atraumatic, normocephalic, symmetric Eyes: EOMI, no lid lag, anicteric sclera Mouth: no lip lesion, mucus membranes moist Cardiovascular: S1S2 reg, no murmur Lungs: CTA bilateral, no rhonchi, no rales , no accessory muscle use Ext: no gross muscle atrophy, no edema, no contractures Neuro: no focal neuro deficits Psych: Sleepy but easy arousal Discharge Diagnosis: Acute encephalopathy with history of underlying dementia likely due undertreated hypothyroidism and UTI with component of delirium Acute hypoxic respiratory failure due to systolic congestive heart failure exacerbation with ejection fraction 45 to 50% Persistent atrial fibrillation, rate controlled Hypertension Transaminitis associated with hyperbilirubinemia, stable JANNETH on CKD stage III Newly discovered diabetes type II with A1c of 8 Bedbug infestation on arrival This complex discharge took 35 minutes to complete. Patient Condition at Discharge: Stable Plan - Discharge Summary New Discharge Prescriptions: New Furosemide [Lasix] 20 mg PO Q48H tab Memantine [Namenda] 5 mg PO BID tab QUEtiapine [SEROquel] 12.5 mg PO HS PRN tab PRN Reason: Agitation Or Acute Anxiety Levothyroxine Sodium [Synthroid] 75 mcg PO DAILY@0630 tab Diltiazem Cd [Cardizem CD] 120 mg PO DAILY cap Amiodarone [Cordarone] 200 mg PO BID tab Metoprolol Tartrate [Lopressor] 150 mg PO BID tab amLODIPine [Norvasc] 10 mg PO DAILY tab Bumetanide [BUMEX] 1 mg PO DAILY 7 Days tab Continue FLUoxetine HCL [PROzac] 60 mg PO DAILY allopurinoL [Zyloprim] 300 mg PO HS Zafirlukast [Accolate] 20 mg PO BID Multivitamins, Thera [Multivitamin (formulary)] 1 tab PO DAILY Atorvastatin [Lipitor] 40 mg PO HS #90 tablet Nitroglycerin Sl Tabs [Nitrostat] 0.4 mg SUBLINGUAL Q5M PRN #100 tab PRN Reason: Chest Pain Clopidogrel [Plavix] 75 mg PO DAILY #90 tab ALPRAZolam [Xanax] 0.25 mg PO BID PRN #6 tab PRN Reason: Anxiety Apixaban [Eliquis] 5 mg PO BID #60 tab Cholecalciferol [Vitamin D3 (25 Mcg = 1000 Iu)] 50 mcg PO DAILY Discontinued Levothyroxine Sodium [Synthroid] 50 mcg PO DAILY Metoprolol Succinate [Toprol XL] 100 mg PO DAILY #90 tab Losartan [Cozaar] 25 mg PO HS Furosemide [Lasix] 40 mg PO DAILY Spironolactone [Aldactone] 25 mg PO DAILY Discharge Medication List FLUoxetine HCL [PROzac] 60 mg PO DAILY 08/02/20 [History] Multivitamins, Thera [Multivitamin (formulary)] 1 tab PO DAILY 08/02/20 [History] Zafirlukast [Accolate] 20 mg PO BID 08/02/20 [History] allopurinoL [Zyloprim] 300 mg PO HS 08/02/20 [History] Apixaban [Eliquis] 5 mg PO BID #60 tab 10/16/23 [Rx] Atorvastatin [Lipitor] 40 mg PO HS #90 tablet 11/08/23 [Rx] Clopidogrel [Plavix] 75 mg PO DAILY #90 tab 11/08/23 [Rx] Nitroglycerin Sl Tabs [Nitrostat] 0.4 mg SUBLINGUAL Q5M PRN #100 tab 11/08/23 [Rx] Cholecalciferol [Vitamin D3 (25 Mcg = 1000 Iu)] 50 mcg PO DAILY 03/04/24 [History] ALPRAZolam [Xanax] 0.25 mg PO BID PRN #6 tab 03/24/24 [Rx] Amiodarone [Cordarone] 200 mg PO BID tab 03/24/24 [Rx] Furosemide [Lasix] 20 mg PO Q48H tab 03/24/24 [Rx] Levothyroxine Sodium [Synthroid] 75 mcg PO DAILY@0630 tab 03/24/24 [Rx] Memantine [Namenda] 5 mg PO BID tab 03/24/24 [Rx] Metoprolol Tartrate [Lopressor] 150 mg PO BID tab 03/24/24 [Rx] QUEtiapine [SEROquel] 12.5 mg PO HS PRN tab 03/24/24 [Rx] amLODIPine [Norvasc] 10 mg PO DAILY tab 03/24/24 [Rx] Bumetanide [BUMEX] 1 mg PO DAILY 7 Days tab 03/26/24 [Rx] Diltiazem Cd [Cardizem CD] 120 mg PO DAILY cap 03/26/24 [Rx] Follow up Appointment(s)/Referral(s): Lani Fu MD [STAFF PHYSICIAN] - 03/31/24 10:30 am Naomie Ndiaye NPC [REFERRING] - 1 Week (Gastroenterology follow-up for elevated liver function tests) Stephanie Harmon MD [STAFF PHYSICIAN] - 1 Week Vishal Blount DO [STAFF PHYSICIAN] - 04/04/24 11:00 am Blas Williamson DO [Primary Care Provider] - 1-2 days (ECF please call for follow-up appointment.) Ambulatory/Diagnostic Orders: Basic Metabolic Panel [LAB.AMB] Time Frame: 3 Days, Location: None Selected Patient Instructions/Handouts: Altered Mental Status (ED) Activity/Diet/Wound Care/Special Instructions: Further diabetes management by PCP. Repeat thyroid function in 6 weeks to be followed up with PCP. Bumex 1 mg by mouth daily for 7 days. After than, continue Lasix 20 mg by mouth every other day. Discharge Disposition: TRANSFER TO SNF/ECF
[2024-03-26 11:18] LABS: Glucose,Whole Blood 159 mg/dL (70-110)
[2024-03-26 14:57] VITALS: BP 133/75; PULSE 80; RESP 18
[2024-03-27] MEDS ORDERED: BUMETANIDE 1 MG TAB PO SCH (09:00)
== END 2024-03-26 14:45 | DRG 884 ==
LOC: EC 18:11 → 3SCARD 03-05 02:34 → OBSVTOIN 03-05 02:34 → 3SCARD 03-05 12:58 → 5NMEDONC 03-05 21:06 → 3SCARD 03-10 16:40 → 4SSUR 03-20 22:20
PROVIDERS: ADMIT Internal Medicine; ATTEND Internal Medicine
PROC: 4A10X4Z Monitoring of Central Nervous Electrical Activity, External Approach (ICD-10-PCS; 2024-03-06)
PROC: 05H933Z Insertion of Infusion Device into Right Brachial Vein, Percutaneous Approach (ICD-10-PCS; 2024-03-11)
PROC: 05HB33Z Insertion of Infusion Device into Right Basilic Vein, Percutaneous Approach (ICD-10-PCS; 2024-03-14)
PROC: 05HF33Z Insertion of Infusion Device into Left Cephalic Vein, Percutaneous Approach (ICD-10-PCS; principal; 2024-03-25 10:00)
DX: F03.94 Unspecified dementia, unspecified severity, with anxiety (principal); I50.23 Acute on chronic systolic (congestive) heart failure; G92.8 Other toxic encephalopathy; J96.01 Acute respiratory failure with hypoxia; N17.0 Acute kidney failure with tubular necrosis; I13.0 Hypertensive heart and chronic kidney disease with heart failure and stage 1 through stage 4 chronic kidney disease, or unspecified chronic kidney disease; F05 Delirium due to known physiological condition; I48.19 Other persistent atrial fibrillation; I42.0 Dilated cardiomyopathy; N39.0 Urinary tract infection, site not specified; E87.0 Hyperosmolality and hypernatremia; Z68.1 Body mass index [BMI] 19.9 or less, adult; R17 Unspecified jaundice; E03.9 Hypothyroidism, unspecified; I25.10 Atherosclerotic heart disease of native coronary artery without angina pectoris; F41.9 Anxiety disorder, unspecified; E80.6 Other disorders of bilirubin metabolism; N18.32 Chronic kidney disease, stage 3b; I27.20 Pulmonary hypertension, unspecified; Z59.19 Other inadequate housing; I08.1 Rheumatic disorders of both mitral and tricuspid valves; E87.70 Fluid overload, unspecified; I25.5 Ischemic cardiomyopathy; Z88.2 Allergy status to sulfonamides; Z88.1 Allergy status to other antibiotic agents; B96.20 Unspecified Escherichia coli [E. coli] as the cause of diseases classified elsewhere; E87.6 Hypokalemia; X58.XXXA Exposure to other specified factors, initial encounter; R35.89 Other polyuria; E78.5 Hyperlipidemia, unspecified; E66.9 Obesity, unspecified; F32.A Depression, unspecified; R74.01 Elevation of levels of liver transaminase levels; M10.9 Gout, unspecified; Z90.49 Acquired absence of other specified parts of digestive tract; Z88.8 Allergy status to other drugs, medicaments and biological substances; Z96.653 Presence of artificial knee joint, bilateral; Z96.643 Presence of artificial hip joint, bilateral; Z98.42 Cataract extraction status, left eye; Z98.41 Cataract extraction status, right eye
CPT/HCPCS: 36410; 36415; 70450; 70553; 71045; 71046; 76705; 76770; 76937; 80048; 80053; 80074; 80306; 81001; 82009; 82103; 82105; 82140; 82390; 82607; 82746; 83036; 83516; 83735; 83880; 83921; 84100; 84145; 84207; 84439; 84443; 84484; 85025; 85027; 85610; 85652; 85730; 86038; 86140; 86780; 87040; 87077; 87086; 87186; 93005; 93880; 94760; 95816; 96361; 96374; 99285

== ENCOUNTER 2024-05-08 10:42 | Inpatient (IN) | payer MEDICARE ==
--- NOTE | 2024-05-08 11:00 | ED ---
Recheck HPI - General Chief Complaint: Recheck/Abnormal Lab/Rx Stated Complaint: UTI Time Seen by Provider: 05/08/24 10:58 Source: patient, EMS, RN notes reviewed Mode of arrival: EMS Limitations: no limitations - History of Present Illness Initial Comments: 78-year-old female presents emergency department via EMS for chief complaint of urinary symptoms. Patient states that over the past week she has been experiencing dysuria and increasing urinary frequency and urgency. She is also endorsing suprapubic tenderness. She reports that last week she felt chilled however the symptoms have resolved. Denies nausea, vomiting, weakness. Patient was started on macrobid for urine infection and culture was sent. States that her symptoms have not improved since starting antibiotics a few days ago. - Related Data Home Medications Medication Instructions Recorded Confirmed FLUoxetine HCL [PROzac] 60 mg PO DAILY 08/02/20 03/04/24 Multivitamins, Thera [Multivitamin 1 tab PO DAILY 08/02/20 03/04/24 (formulary)] Zafirlukast [Accolate] 20 mg PO BID 08/02/20 03/04/24 allopurinoL [Zyloprim] 300 mg PO HS 08/02/20 03/04/24 Cholecalciferol [Vitamin D3 (25 50 mcg PO DAILY 03/04/24 03/04/24 Mcg = 1000 Iu)] Previous Rx's Medication Instructions Recorded Apixaban [Eliquis] 5 mg PO BID #60 tab 10/16/23 Atorvastatin [Lipitor] 40 mg PO HS #90 tablet 11/08/23 Clopidogrel [Plavix] 75 mg PO DAILY #90 tab 11/08/23 Nitroglycerin Sl Tabs [Nitrostat] 0.4 mg SUBLINGUAL Q5M PRN #100 tab 11/08/23 Amiodarone [Cordarone] 200 mg PO BID tab 03/24/24 Furosemide [Lasix] 20 mg PO Q48H tab 03/24/24 Levothyroxine Sodium [Synthroid] 75 mcg PO DAILY@0630 tab 03/24/24 Memantine [Namenda] 5 mg PO BID tab 03/24/24 Metoprolol Tartrate [Lopressor] 150 mg PO BID tab 03/24/24 QUEtiapine [SEROquel] 12.5 mg PO HS PRN tab 03/24/24 amLODIPine [Norvasc] 10 mg PO DAILY tab 03/24/24 Bumetanide [BUMEX] 1 mg PO DAILY 7 Days tab 03/26/24 Diltiazem Cd [Cardizem CD] 120 mg PO DAILY cap 03/26/24 Allergies Allergy/AdvReac Type Severity Reaction Status Date / Time sulfamethoxazole AdvReac Unknown STOMACH Verified 03/04/24 19:57 [From Bactrim] PAIN trimethoprim [From Bactrim] AdvReac Unknown STOMACH Verified 03/04/24 19:57 PAIN spironolactone AdvReac Unknown Verified 03/21/24 17:05 [From Aldactone] HORSE SERUM TETANAS Allergy Severe Anaphylaxis Uncoded 02/20/24 06:57 Novacaine Allergy Anaphylaxis Uncoded 02/20/24 06:57 Review of Systems ROS Statement: Those systems with pertinent positive or pertinent negative responses have been documented in the HPI. ROS Other: All systems not noted in ROS Statement are negative. Past Medical History Past Medical History: Atrial Fibrillation, Hyperlipidemia, Hypertension Additional Past Medical History / Comment(s): Sleep Apnea (no machine not working), hx of septicemia, neck, back and shoulder pain, uses cane and rolling walker prn, gout . pt states recent SOB, weakness,. Bed Bugs (03/04/24) History of Any Multi-Drug Resistant Organisms: None Reported Past Surgical History: Adenoidectomy, Bariatric Surgery, Cholecystectomy, Hernia Repair, Joint Replacement, Tonsillectomy Additional Past Surgical History / Comment(s): GASTRIC SLEEVE (2010- DR MENDEZ), CARPAL TUNNEL MARILYN, CATARACTS, INGUINAL HERNIA, MARILYN TOTAL KNEES, Bilateral TOTAL HIPs, injections in back for spinal stenosis and cervical injections., pain clinic procedures. Past Anesthesia/Blood Transfusion Reactions: No Reported Reaction, Motion Sick ness Past Psychological History: Anxiety, Depression Smoking Status: Never smoker Past Alcohol Use History: None Reported Past Drug Use History: None Reported - Past Family History Mother Additional Family Medical History / Comment(s): heart disease Father Family Medical History: Coronary Artery Disease (CAD), CVA/TIA Additional Family Medical History / Comment(s): heart disease General Exam Limitations: no limitations General appearance: alert, in no apparent distress Head exam: Present: atraumatic, normocephalic, normal inspection Eye exam: Present: normal appearance, PERRL, EOMI. Absent: scleral icterus, conjunctival injection, periorbital swelling ENT exam: Present: normal exam, mucous membranes moist Neck exam: Present: normal inspection. Absent: tenderness, meningismus, lymphadenopathy Respiratory exam: Present: normal lung sounds bilaterally. Absent: respiratory distress, wheezes, rales, rhonchi, stridor Cardiovascular Exam: Present: regular rate, normal rhythm, normal heart sounds. Absent: systolic murmur, diastolic murmur, rubs, gallop, clicks GI/Abdominal exam: Present: soft, tenderness (suprapubic/pelvic), normal bowel sounds. Absent: distended, guarding, rebound, rigid Extremities exam: Present: normal inspection, full ROM, normal capillary refill. Absent: tenderness, pedal edema, joint swelling, calf tenderness Back exam: Present: normal inspection Neurological exam: Present: alert, oriented X3, CN II-XII intact Psychiatric exam: Present: normal affect, normal mood Skin exam: Present: warm, dry, intact, normal color. Absent: rash Course Vital Signs 05/08/24 10:54 Temperature 98.4 F Pulse Rate 102 H Respiratory 16 Rate Blood Pressure 100/69 O2 Sat by Pulse 93 L Oximetry Medical Decision Making - Medical Decision Making Was pt. sent in by a medical professional or institution (, PA, [facility] F[employer]ER, urgent care, hospital, or longterm...) When possible be specific @ -No Did you speak to anyone other than the patient for history (EMS, parent, family, police, friend...)? What history was obtained from this source @ -Spoke to the patient's family at bedside he states that the patient was recently treated for urinary tract infection with Macrobid. Did you review nursing and triage notes (agree or disagree)? Why? @ -I reviewed and agree with nursing and triage notes Were old charts reviewed (outside hosp., previous admission, EMS record, old EKG, old radiological studies, urgent care reports/EKG's, longterm records)? Report findings @ -Reviewed the patient's urine culture results from 05/05/2024 where the culture grew Proteus Mirabilis and E. coli bacteria. Reviewed the patient's urinalysis that was completed on 05/05/2024 which revealed a turbid appearance, elevated proteins, small blood, leukocyte esterase and blood cells and white blood cells. Differential Diagnosis (chest pain, altered mental status, abdominal pain women, abdominal pain men, vaginal bleeding, weakness, fever, dyspnea, syncope, headache, dizziness, GI bleed, back pain, seizure, CVA, palpatations, mental health, musculoskeletal)? @ -Differential Abdominal Pain Women: Appendicitis, Cholecystitis, diverticulosis, ischemic bowel, pancreatitis, he patitis, UTI, gastroenteritis, AAA, incarcerated hernia, bowel obstruction, constipation, inflammatory bowel, hepatitis, peptic ulcer disease, splenic infarction, perforated viscus, vulvitis, ovarian torsion, PID, kidney stone, placenta abruption, this is not meant to be an all-inclusive list EKG interpreted by me (3pts min.). @ -none X-rays interpreted by me (1pt min.). @ -None done CT interpreted by me (1pt min.). @ -None done U/S interpreted by me (1pt. min.). @ -None done What testing was considered but not performed or refused? (CT, X-rays, U/S, labs)? Why? @ -None What meds were considered but not given or refused? Why? @ -None Did you discuss the management of the patient with other professionals (professionals i.e. , PA, [employer]ER, lab, RT, psych nurse, family welfare social work professor, paint mixer, teacher, consular officer, rn field case manager)? Give summary @ -i spoke with [facility]LL[employer] [facility]ER, Prashanth Gramajo, from [facility] in regard to the patient's case and presentation. Was excepted with admission for hypokalemia and urinary tract infection. She will be started on IV antibiotics and potassium supplementation will be ordered. Was smoking cessation discussed for >3mins.? @ -No Was critical care preformed (if so, how long)? @ -No Were there social determinants of health that impacted care today? How? (Homelessness, low income, unemployed, alcoholism, drug addiction, transportation, low edu. Level, literacy, decrease access to med. care, usp, rehab)? @ -No Was there de-escalation of care discussed even if they declined (Discuss DNR or withdrawal of care, Hospice)? DNR status @ -No What co-morbidities impacted this encounter? (DM, HTN, Smoking, COPD, CAD, Cancer, CVA, ARF, Chemo, Hep., AIDS, mental health diagnosis, sleep apnea, morbid obesity)? @ -None Was patient admitted / discharged? Hospital course, mention meds given and route, prescriptions, significant lab abnormalities, going to OR and other [facility] info. @ -78-year-old female with urinary symptoms. On examination patient noted to have suprapubic tenderness. Vitals reveal a mildly hypotensive with a blood pressure of 100/69 and a tachycardia 102. Afebrile. Symptomatically treated with IV fluids pending labs and urinalysis result. I reviewed the patient's urine culture is positive for Proteus mirabilis and E. coli bacteria UA remarkable for infection including large blood, large leukocyte esterase white blood cells and red blood cells in addition to WBC clumps. CBC Unremarkable, CMP reveals a mild hyponatremia of 134 and a hypokalemia of 2.9. BUN mildly elevated at 32. Mild transaminitis. Urinalysis remarkable for severe infection. Patient will be admitted to internal medicine for hypokalemia and urinary tract infection. She started on IV antibiotics and provided with as needed pain medication. Discussed with Dr. Warren. Undiagnosed new problem with uncertain prognosis? @ -No Drug Therapy requiring intensive monitoring for toxicity (Heparin, Nitro, Insulin, Cardizem)? @ -No Were any procedures done? @ -No Diagnosis/symptom? @ -Hypokalemia, urinary tract infection Acute, or Chronic, or Acute on Chronic? @ -Acute Uncomplicated (without systemic symptoms) or Complicated (systemic symptoms)? @ -Uncomplicated Side effects of treatment? @ -No Exacerbation, Progression, or Severe Exacerbation? @ -No Poses a threat to life or bodily function? How? (Chest pain, [place], [place], pneumonia, PE, COPD, DKA, ARF, appy, cholecystitis, CVA, Diverticulitis, Homicidal, Suicidal, threat to staff... and all critical care pts) @ -No - Lab Data Result diagrams: 05/08/24 11:45 05/08/24 11:45 Lab Results 05/08/24 05/08/24 05/08/24 Range/Units 11:45 11:45 11:45 WBC 8.9 (3.8-10.6) k/uL RBC 4.27 (3.80-5.40) m/uL Hgb 13.8 (11.4-16.0) gm/dL Hct 43.1 (34.0-46.0) % MCV 100.9 H D (80.0-100.0) fL MCH 32.3 (25.0-35.0) pg MCHC 32.0 (31.0-37.0) g/dL RDW 15.1 (11.5-15.5) % Plt Count 403 (150-450) k/uL MPV 8.0 Neutrophils % 80 % Lymphocytes % 10 % Monocytes % 8 % Eosinophils % 1 % Basophils % 0 % Neutrophils # 7.1 (1.3-7.7) k/uL Lymphocytes # 0.8 L (1.0-4.8) k/uL Monocytes # 0.7 (0-1.0) k/uL Eosinophils # 0.1 (0-0.7) k/uL Basophils # 0.0 (0-0.2) k/uL Hypochromasia Slight Macrocytosis Slight Sodium 134 L (137-145) mmol/L Potassium 2.9 L (3.5-5.1) mmol/L Chloride 99 (98-107) mmol/L Carbon Dioxide 26 (22-30) mmol/L Anion Gap 9 mmol/L BUN 32 H (7-17) mg/dL Creatinine 1.02 (0.52-1.04) mg/dL Est GFR (CKD-EPI)AfAm 61 (>60 ml/min/1.73 sqM) Est GFR (CKD-EPI)NonAf 53 (>60 ml/min/1.73 sqM) Glucose 153 H (74-99) mg/dL Plasma Lactic Acid Braden 1.2 (0.7-2.0) mmol/L Calcium 9.2 (8.4-10.2) mg/dL Total Bilirubin 1.1 (0.2-1.3) mg/dL AST 84 H (14-36) U/L ALT 65 H (4-34) U/L Alkaline Phosphatase 172 H (38-126) U/L Total Protein 5.4 L (6.3-8.2) g/dL Albumin 3.0 L (3.5-5.0) g/dL Urine Color Urine Appearance (Clear) Urine pH (5.0-8.0) Ur Specific [place] (1.001-1.035) Urine Protein (Negative) Urine Glucose (UA) (Negative) Urine Ketones (Negative) Urine Blood (Negative) Urine Nitrite (Negative) Urine Bilirubin (Negative) Urine Urobilinogen (<2.0) mg/dL Ur Leukocyte Esterase (Negative) Urine RBC (0-5) /hpf Urine WBC (0-5) /hpf Urine WBC Clumps (None) /hpf Urine Bacteria (None) /hpf Urine Yeast (Budding) (None) /hpf 05/08/24 Range/Units 12:11 WBC (3.8-10.6) k/uL RBC (3.80-5.40) m/uL Hgb (11.4-16.0) gm/dL Hct (34.0-46.0) % MCV (80.0-100.0) fL MCH (25.0-35.0) pg MCHC (31.0-37.0) g/dL RDW (11.5-15.5) % Plt Count (150-450) k/uL MPV Neutrophils % % Lymphocytes % % Monocytes % % Eosinophils % % Basophils % % Neutrophils # (1.3-7.7) k/uL Lymphocytes # (1.0-4.8) k/uL Monocytes # (0-1.0) k/uL Eosinophils # (0-0.7) k/uL Basophils # (0-0.2) k/uL Hypochromasia Macrocytosis Sodium (137-145) mmol/L Potassium (3.5-5.1) mmol/L Chloride (98-107) mmol/L Carbon Dioxide (22-30) mmol/L Anion Gap mmol/L BUN (7-17) mg/dL Creatinine (0.52-1.04) mg/dL Est GFR (CKD-EPI)AfAm (>60 ml/min/1.73 sqM) Est GFR (CKD-EPI)NonAf (>60 ml/min/1.73 sqM) Glucose (74-99) mg/dL Plasma Lactic Acid Brdaen (0.7-2.0) mmol/L Calcium (8.4-10.2) mg/dL Total Bilirubin (0.2-1.3) mg/dL AST (14-36) U/L ALT (4-34) U/L Alkaline Phosphatase (38-126) U/L Total Protein (6.3-8.2) g/dL Albumin (3.5-5.0) g/dL Urine Color Light Red Urine Appearance Turbid H (Clear) Urine pH 7.0 (5.0-8.0) Ur Specific [place] 1.016 (1.001-1.035) Urine Protein 2+ H (Negative) Urine Glucose (UA) Negative (Negative) Urine Ketones Trace H (Negative) Urine Blood Large H (Negative) Urine Nitrite Negative (Negative) Urine Bilirubin Negative (Negative) Urine Urobilinogen 8.0 (<2.0) mg/dL Ur Leukocyte Esterase Large H (Negative) Urine RBC 120 H (0-5) /hpf Urine WBC >182 H (0-5) /hpf Urine WBC Clumps Many H (None) /hpf Urine Bacteria Many H (None) /hpf Urine Yeast (Budding) Many H (None) /hpf Disposition Clinical Impression: UTI (urinary tract infection), Hypokalemia Disposition: ADMITTED IP TO THIS [facility] Condition: Good Decision to Admit Reason: Admit from EC Decision Date: 05/08/24 Decision Time: 13:00
[2024-05-08] MEDS: SODIUM CHLORIDE 0.9% 500 ML 500 ML IV STA (11:50)
[2024-05-08 12:19] LABS: Basophils % (A) 0 %; Eosinophils # (A) 0.1 k/uL (0-0.7); Eosinophils % (A) 1 %; HCT 43.1 % (34.0-46.0); HGB 13.8 gm/dL (11.4-16.0); Hypochromasia Slight; Lymphocytes # (A) 0.8 k/uL (1.0-4.8); Lymphocytes % (A) 10 %; MCH 32.3 pg (25.0-35.0); Macrocytosis Slight; Monocytes # (A) 0.7 k/uL (0-1.0); Monocytes % (A) 8 %; Neutrophils # (A) 7.1 k/uL (1.3-7.7); Neutrophils % (A) 80 %; Platelet Count 403 k/uL (150-450); RBC 4.27 m/uL (3.80-5.40); RDW 15.1 % (11.5-15.5); WBC 8.9 k/uL (3.8-10.6)
[2024-05-08 12:25] LABS: Appearance,Urine Turbid (Clear); Bacteria,Urine Many /hpf; Bilirubin,Urine Negative (Negative); Blood,Urine Large (Negative); Budding Yeast,Urine Many /hpf; Color,Urine Light Red; Glucose,Urine (UA) Negative (Negative); Ketones,Urine Trace (Negative); Leukocyte Esterase,Urine Large (Negative); Nitrite,Urine Negative (Negative); Protein,Urine 2+ (Negative); RBC,Urine 120 /hpf (0-5); Specific Gravity,Urine 1.016 (1.001-1.035); WBC,Urine >182 /hpf (0-5)
[2024-05-08 12:27] LABS: MCV 100.9 fL (80.0-100.0)
[2024-05-08 12:34] LABS: ALT 65 U/L (4-34); AST 84 U/L (14-36); African American GFR (CKD) 61 (>60 ml/min/1.73 sqM); Alkaline Phosphatase 172 U/L (38-126); Anion Gap 9 mmol/L; Blood Urea Nitrogen 32 mg/dL (7-17); Calcium 9.2 mg/dL (8.4-10.2); Carbon Dioxide 26 mmol/L (22-30); Chloride 99 mmol/L (98-107); Glucose 153 mg/dL (74-99); Non-African American GFR(CKD) 53 (>60 ml/min/1.73 sqM); Potassium 2.9 mmol/L (3.5-5.1); Sodium 134 mmol/L (137-145); Total Bilirubin 1.1 mg/dL (0.2-1.3); Total Protein 5.4 g/dL (6.3-8.2)
[2024-05-08] MEDS ORDERED: NALOXONE 0.4 MG/ML 1 ML VIAL IV PRN (13:00)
[2024-05-08] MEDS: POTASSIUM CHLORIDE ER 20 MEQ TAB.ER PO STA (13:24)
[2024-05-08] MEDS: KETOROLAC 15 MG/ML 1 ML VIAL IVP STA (13:24)
[2024-05-08] MEDS: POTASSIUM CHLORIDE 20 MEQ in WATER FOR INJECTION 1 100ML.BAG IVPB STA (13:24)
[2024-05-08] MEDS: SODIUM CHLORIDE 0.9% 1,000 ML IV SCH (13:25)
[2024-05-08] MEDS ORDERED: DEXTROSE 50% SYRINGE 50 ML IVP PRN ×2 (15:31)
--- NOTE | 2024-05-08 17:41 | P.HPIM ---
History of Present Illness H&P Date: 05/08/24 Patient is a 78-year-old female with past medical history of persistent atrial fibrillation, hyperlipidemia, hypertension, CAD status post stent, HFrEF with EF 25%, obstructive sleep apnea, gastric sleeve, hysterectomy, hernia repair, anxiety, depression, hypertension, who is ambulating using a cane and rolling walker. She was recently in the hospital for acute toxic metabolic encephalopathy with underlying dementia likely due to untreated hypothyroidism and UTI with component of delirium, acute hypoxic respiratory failure because of systolic congestive heart failure exacerbation with ejection fraction 45 to 50%, transaminitis associated with hyperbilirubinemia and JANNETH on CKD stage III, bed bug infestation on arrival(03/04/24) and was discharged on 03/26/24. She presented to the ED today with dysuria, increased frequency and urgency, suprapubic tenderness and chills since a couple of weeks. She reports sharp lower abdominal pain not radiating. She mentions she was started on Macrobid 2 days ago for the UTI but her symptoms did not improve. She also mentions coughing and yellow phlegm production with no blood. She reports mild headache and constipation. Denies fever, blurry vision, sore throat, runny nose, shortness of breath, chest pain, palpitations, flank pain, weakness, dizziness. Vital signs temperature 98.4, pulse 102, RR 16, BP 100/69, O2 93% on room air Labs significant for sodium 134, potassium 2.9, BUN 32, glucose 153, AST 84, ALT 65, ALP 172, total protein 5.4, albumin 3. UA shows turbid urine, 2+ protein, trace ketones, large blood, large leukocyte esterase, 120 RBC, more than 182 W BC, many WBC clumps, many bacteria, many budding yeast. Review of systems: Pertinent positives and negatives as discussed in HPI, a complete review of systems was performed and all other systems are negative. Family history: CAD, CVA, TIA in father Heart disease in mother Social history: Smoking: Never smoker Alcohol: None Drug: None Travel: No recent travel Physical examination: Vital signs reviewed General: nontoxic, no distress, appears at stated age Derm: warm, dry, intact Head: atraumatic, normocephalic, symmetric Eyes: EOMI, no lid lag, anicteric sclera Mouth: no lip lesion, mucus membranes moist Cardiovascular: S1 S2 reg, no murmur, rubs, or gallops Lungs: CTA bilateral, no rhonchi, no rales, no accessory muscle use Abdominal: Suprapubic tenderness, soft, no appreciable organomegaly Extremities: Trace bilateral pitting edema, no gross muscle atrophy, no contractures Neuro: Alert, Oriented, left lower extremity strength 3/5, right lower extremity 4/5, upper extremities 5/5, CNII-XII grossly intact Psych: well appearing, appropriate affect Assessment/plan: 78-year-old female with past medical history of persistent atrial fibrillation, systolic congestive heart failure, has presented to the ED today with dysuria, increased frequency and urgency, suprapubic tenderness and chills and is diagnosed with suspected complicated MDRO cystitis. Acute recurrent complicated MDRO cystitis: -Urine culture from 05/05/24 shows more than 100,000 CFU per mL Proteus mirabilis and a 50-100,000 CFU per mL E. coli that is sensitive to cephalosporins(including ceftriaxone). -Ceftriaxone 2 g IV Q24HR -Acetaminophen 650 mg p.o. Q6HR PRN -Zosyn was discontinued -Ketorolac discontinued -Patient has history of recurrent urinary tract infection, previous renal scans did not show any obstructive uropathy. Either she is having recurrent UTIs secondary to poor hygiene or due to anatomical cause. Consider outpatient urology referral Hypokalemia: -Potassium chloride 40 mg p.o. once, Potassium chloride 20 mEq IV once, repleted in the ED -Magnesium within normal limits -Will continue to monitor BMP, magnesium level Type 2 diabetes mellitus, hyperglycemia: -Insulin sliding scale, monitor for hypoglycemia -Not on any antidiabetic medications at home Hyponatremia, likely hypovolemic: -Status post normal saline 500 cc in the ED -Patient does have history of systolic CHF, monitor fluid status closely CKD stage III A: -BUN 32, creatinine 1.02, GFR 53 -Avoid NSAIDs Transaminitis, stable: -AST 84, ALT 65 -Will continue to monitor -Previous abdominal ultrasound did not show any hepatobiliary pathology Debility -Physical therapy consult ordered History of dementia -Likely at baseline mentation -Continue memantine 5 mg twice daily HFrEF, not in exacerbation, LVEF 25% Suspected ischemic cardiomyopathy History of CAD status post stent -Not on any statins or antiplatelet therapy -Continue metoprolol succinate 100 mg daily -Consider STEWART inhibitor/ARB/ARNI outpatient -Currently not on guideline directed medical therapy for heart failure, needs outpatient follow-up with cardiology -Continue Lasix 20 mg p.o. every 48 hours Persistent atrial fibrillation -Continue Eliquis 5 mg twice daily -Continue metoprolol 100 mg daily -If tachycardic, will get EKG Hypothyroidism -Continue 75 mcg daily levothyroxine History of asthma -Continue zafirlukast 20 mg twice daily DVT prophylaxis: Eliquis 5 mg twice daily CODE STATUS: Full code The patient is admitted with an anticipated less than 2 midnight stay as observation status for evaluation of complicated cystitis, failed outpatient t reatment. Surrogate decision-maker: Daughter Anticipated discharge date: Pending clinical course Anticipated discharge place: Pending clinical course A total of 55 minutes was spent on the care of this complex patient more than 50% of the time was spent in counseling and care coordination. I have seen and evaluated the patient today. Discussed with the resident and agree with the residents finding and plan as documented in the resident's note. Changes highlighted in blue font. Past Medical History Past Medical History: Atrial Fibrillation, Hyperlipidemia, Hypertension Additional Past Medical History / Comment(s): Sleep Apnea (no machine not working), hx of septicemia, neck, back and shoulder pain, uses cane and rolling walker prn, gout . pt states recent SOB, weakness,. Bed Bugs (03/04/24) History of Any Multi-Drug Resistant Organisms: None Reported Past Surgical History: Adenoidectomy, Bariatric Surgery, Cholecystectomy, Hernia Repair, Joint Replacement, Tonsillectomy Additional Past Surgical History / Comment(s): GASTRIC SLEEVE (2010- DR MENDEZ), CARPAL TUNNEL MARILYN, CATARACTS, INGUINAL HERNIA, MARILYN TOTAL KNEES, Bilateral TOTAL HIPs, injections in back for spinal stenosis and cervical injections., pain clinic procedures. Past Anesthesia/Blood Transfusion Reactions: No Reported Reaction, Motion Sickness Past Psychological History: Anxiety, Depression Smoking Status: Never smoker Past Alcohol Use History: None Reported Past Drug Use History: None Reported - Past Family History Mother Additional Family Medical History / Comment(s): heart disease Father Family Medical History: Coronary Artery Disease (CAD), CVA/TIA Additional Family Medical History / Comment(s): heart disease Medications and Allergies Home Medications Medication Instructions Recorded Confirmed Type FLUoxetine HCL [PROzac] 60 mg PO HS 08/02/20 05/08/24 History Multivitamins, Thera [Multivitamin 1 tab PO DAILY 08/02/20 05/08/24 History (formulary)] Zafirlukast [Accolate] 20 mg PO BID 08/02/20 05/08/24 History allopurinoL [Zyloprim] 300 mg PO HS 08/02/20 05/08/24 History Apixaban [Eliquis] 5 mg PO BID #60 tab 10/16/23 05/08/24 Rx Furosemide [Lasix] 20 mg PO Q48H tab 03/24/24 05/08/24 Rx Memantine [Namenda] 5 mg PO BID tab 03/24/24 05/08/24 Rx Butalb/Acetaminophen/Caffeine 1 cap PO Q4HR PRN 05/08/24 05/08/24 History [Fioricet 50-300-40 mg Capsule] Levothyroxine Sodium [Synthroid] 75 mcg PO DAILY 05/08/24 05/08/24 History Metoprolol Succinate (ER) [Toprol 100 mg PO DAILY 05/08/24 05/08/24 History Xl] Nitrofurantoin Monohyd/M-Cryst 100 mg PO BID 05/08/24 05/08/24 History [Macrobid] Nitroglycerin Sl Tabs [Nitrostat] 0.4 mg SL Q5M PRN 05/08/24 05/08/24 History Ondansetron Odt [Zofran Odt] 8 mg PO Q8HR PRN 05/08/24 05/08/24 History Ondansetron [Zofran] 4 mg PO Q6H PRN 05/08/24 05/08/24 History Allergies Allergy/AdvReac Type Severity Reaction Status Date / Time sulfamethoxazole AdvReac Unknown STOMACH Verified 03/04/24 19:57 [From Bactrim] PAIN trimethoprim [From Bactrim] AdvReac Unknown STOMACH Verified 03/04/24 19:57 PAIN spironolactone AdvReac Unknown Verified 03/21/24 17:05 [From Aldactone] HORSE SERUM TETANAS Allergy Severe Anaphylaxis Uncoded 02/20/24 06:57 Novacaine Allergy Anaphylaxis Uncoded 02/20/24 06:57 Physical Exam Vitals: Vital Signs Temp Pulse Resp BP Pulse Ox 05/08/24 10:54 98.4 F 102 H 16 100/69 93 L Intake and Output 05/08/24 05/08/24 05/08/24 06:59 14:59 22:59 Other: Weight 79.832 kg Results CBC & Chem 7: 05/08/24 11:45 05/08/24 11:45 Labs: Abnormal Lab Results - Last 24 Hours (Table) 05/08/24 05/08/24 05/08/24 Range/Units 11:45 11:45 12:11 MCV 100.9 H D (80.0-100.0) fL Lymphocytes # 0.8 L (1.0-4.8) k/uL Sodium 134 L (137-145) mmol/L Potassium 2.9 L (3.5-5.1) mmol/L BUN 32 H (7-17) mg/dL Glucose 153 H (74-99) mg/dL AST 84 H (14-36) U/L ALT 65 H (4-34) U/L Alkaline Phosphatase 172 H (38-126) U/L Total Protein 5.4 L (6.3-8.2) g/dL Albumin 3.0 L (3.5-5.0) g/dL Urine Appearance Turbid H (Clear) Urine Protein 2+ H (Negative) Urine Ketones Trace H (Negative) Urine Blood Large H (Negative) Ur Leukocyte Esterase Large H (Negative) Urine RBC 120 H (0-5) /hpf Urine WBC >182 H (0-5) /hpf Urine WBC Clumps Many H (None) /hpf Urine Bacteria Many H (None) /hpf Urine Yeast (Budding) Many H (None) /hpf
[2024-05-08] MEDS ORDERED: KETOROLAC 15 MG/ML 1 ML VIAL IVP SCH (18:00)
[2024-05-08 18:02] LABS: Glucose,Whole Blood 150 mg/dL (70-110)
[2024-05-08] MEDS: INSULIN ASPART (NovoLOG) 100 UNIT/ML VIAL SQ SCH (18:43)
[2024-05-08 20:26] LABS: Glucose,Whole Blood 179 mg/dL (70-110)
[2024-05-08] MEDS: MEMANTINE 5 MG TAB PO SCH (20:40)
[2024-05-08] MEDS: allopurinoL 300 MG TAB PO SCH (20:40)
[2024-05-08] MEDS: ACETAMINOPHEN TAB 325 MG TAB PO PRN (20:40)
[2024-05-08] MEDS: FLUoxetine HCL 20 MG CAP PO SCH (20:40)
[2024-05-08] MEDS: APIXABAN 5 MG TAB PO SCH (20:40)
[2024-05-08] MEDS: MONTELUKAST 10 MG TAB PO SCH (20:41)
[2024-05-08] MEDS ORDERED: PIPERACILLIN-TAZOBACTAM 3.375 GM in SODIUM CHLORIDE 0.9% 100 ML IVPB SCH (21:00)
[2024-05-09] MEDS: LEVOTHYROXINE 75 MCG TAB PO SCH (05:09)
[2024-05-09 07:04] LABS: Glucose,Whole Blood 114 mg/dL (70-110)
--- NOTE | 2024-05-09 07:09 | P.PN ---
Subjective Progress Note Date: 05/09/24 Principal diagnosis: Patient is a 78-year-old female with past medical history of persistent atrial fibrillation, hyperlipidemia, hypertension, CAD status post stent, HFrEF with EF 25%, obstructive sleep apnea, gastric sleeve, hysterectomy, hernia repair, anxiety, depression, hypertension, who is ambulating using a cane and rolling walker. She was recently in the hospital for acute toxic metabolic encephalopathy with underlying dementia likely due to untreated hypothyroidism and UTI with component of delirium, acute hypoxic respiratory failure because of systolic congestive heart failure exacerbation with ejection fraction 45 to 50%, transaminitis associated with hyperbilirubinemia and JANNETH on CKD stage III, bed bug infestation on arrival(03/04/24) and was discharged on 03/26/24. She presented to the ED today with dysuria, increased frequency and urgency, suprapubic te nderness and chills since a couple of weeks. She reports sharp lower abdominal pain not radiating. She mentions she was started on Macrobid 2 days ago for the UTI but her symptoms did not improve. She also mentions coughing and yellow phlegm production with no blood. She reports mild headache and constipation. Denies fever, blurry vision, sore throat, runny nose, shortness of breath, chest pain, palpitations, flank pain, weakness, dizziness. 05/09 patient was seen and examined today in room 524. Patient was seen and examined at bedside in room 524. Her main complain today of burning with urination and suprapubic tenderness. Denies fever, chills, shortness of breath. Labs today show BUN 27.8, glucose 183, A1c 7.2. Physical examination: Vital signs reviewed General: nontoxic, no distress, appears at stated age Derm: warm, dry, intact Head: atraumatic, normocephalic, symmetric Eyes: EOMI, no lid lag, anicteric sclera Mouth: no lip lesion, mucus membranes moist Cardiovascular: S1 S2 reg, no murmur, rubs, or gallops Lungs: CTA bilateral, no rhonchi, no rales, no accessory muscle use Abdominal: Suprapubic tenderness, soft, no appreciable organomegaly Extremities: Trace bilateral pitting edema, no gross muscle atrophy, no contractures Neuro: Alert, Oriented, left lower extremity strength 3/5, right lower extremity 4/5, upper extremities 5/5, CNII-XII grossly intact Psych: well appearing, appropriate affect Assessment/plan: 78-year-old female with past medical history of persistent atrial fibrillation, systolic congestive heart failure, has presented to the ED today with dysuria, increased frequency and urgency, suprapubic tenderness and chills and is diagnosed with suspected complicated MDRO cystitis and A-fib with RVR. Acute recurrent complicated MDRO cystitis: -Urine culture from 05/05/24 shows more than 100,000 CFU per mL Proteus mirabilis and a 50-100,000 CFU per mL E. coli that is sensitive to cephalosporins(including ceftriaxone). -Ceftriaxone 2 g IV Q24HR -Acetaminophen 650 mg p.o. Q6HR PRN -Patient has history of recurrent urinary tract infection, previous renal scans did not show any obstructive uropathy. Either she is having recurrent UTIs secondary to poor hygiene or due to anatomical cause. Consider outpatient urology referral Atrial fibrillation with RVR: EKG independently interpreted, shows atrial fibrillation with RVR Metoprolol succinate increased to 150 mg p.o. daily -Continue Eliquis 5 mg twice daily -Monitor on telemetry Hypokalemia: -Today K 3.6 -Potassium 40meq given today -Potassium chloride 40 mg p.o. once, Potassium chloride 20 mEq IV once, repleted in the ED -Magnesium within normal limits -Will continue to monitor BMP, magnesium level Type 2 diabetes mellitus, hyperglycemia: -Glucose range between 10 9-1 83 -Insulin sliding scale, monitor for hypoglycemia -Not on any antidiabetic medications at home, consider metformin at discharge Hyponatremia, likely hypovolemic: -Normal saline IV 20 mill per hr -Status post normal saline 500 cc in the ED -History of systolic CHF, monitor fluid status closely CKD stage III A: -BUN 32, creatinine 1.02, GFR 53 -Avoid NSAIDs Transaminitis, stable: -AST 65, ALT 61 -Will continue to monitor -Previous abdominal ultrasound did not show any hepatobiliary pathology Debility: -Physical therapy consult ordered -She denied PT evaluation History of dementia: -Likely at baseline mentation -Continue memantine 5 mg twice daily HFrEF, not in exacerbation, LVEF 25% Suspected ischemic cardiomyopathy History of CAD status post stent: -Continue metoprolol succinate 150 mg daily -Continue Lasix 20 mg p.o. every 48 hours -Not on any statins or antiplatelet therapy -Currently not on guideline directed medical therapy for heart failure, needs outpatient follow-up with cardiology -Consider STEWART inhibitor/ARB/ARNI outpatient Hypothyroidism: -Continue 75 mcg daily levothyroxine History of asthma: -Continue zafirlukast 20 mg twice daily History of anxiety: Fluoxetine 60 mg p.o. at bedtime DVT prophylaxis: Eliquis 5 mg twice daily CODE STATUS: Full code Disposition: Pending clinical course I have seen and evaluated the patient today. Discussed with the resident and agree with the residents finding and plan as documented in the resident's note. Changes highlighted in blue font. Objective - Vital Signs Vital signs: Vital Signs Temp 98.1 F 05/09/24 02:00 Pulse 105 H 05/09/24 02:00 Resp 16 05/09/24 02:00 BP 114/76 05/09/24 02:00 Pulse Ox 92 L 05/09/24 02:00 FiO2 Intake & Output 05/08/24 05/08/24 05/09/24 06:59 18:59 06:59 Intake Total 710 Output Total 200 Balance 510 Weight 79.832 kg 79.832 kg Intake: Oral 710 Output: Urine 200 Other: Voiding Method Bedpan Bedpan External Catheter - Labs CBC & Chem 7: 05/09/24 02:53 05/09/24 02:53 Labs: Abnormal Lab Results - Last 24 Hours (Table) 05/08/24 05/08/24 05/08/24 Range/Units 11:45 11:45 12:11 MCV 100.9 H D (80.0-100.0) fL Lymphocytes # 0.8 L (1.0-4.8) k/uL Sodium 134 L (137-145) mmol/L Potassium 2.9 L (3.5-5.1) mmol/L BUN 32 H (7-17) mg/dL Glucose 153 H (74-99) mg/dL POC Glucose (mg/dL) (70-110) mg/dL AST 84 H (14-36) U/L ALT 65 H (4-34) U/L Alkaline Phosphatase 172 H (38-126) U/L Total Protein 5.4 L (6.3-8.2) g/dL Albumin 3.0 L (3.5-5.0) g/dL Urine Appearance Turbid H (Clear) Urine Protein 2+ H (Negative) Urine Ketones Trace H (Negative) Urine Blood Large H (Negative) Ur Leukocyte Esterase Large H (Negative) Urine RBC 120 H (0-5) /hpf Urine WBC >182 H (0-5) /hpf Urine WBC Clumps Many H (None) /hpf Urine Bacteria Many H (None) /hpf Urine Yeast (Budding) Many H (None) /hpf 05/08/24 05/08/24 Range/Units 18:00 20:25 MCV (80.0-100.0) fL Lymphocytes # (1.0-4.8) k/uL Sodium (137-145) mmol/L Potassium (3.5-5.1) mmol/L BUN (7-17) mg/dL Glucose (74-99) mg/dL POC Glucose (mg/dL) 150 H 179 H (70-110) mg/dL AST (14-36) U/L ALT (4-34) U/L Alkaline Phosphatase (38-126) U/L Total Protein (6.3-8.2) g/dL Albumin (3.5-5.0) g/dL Urine Appearance (Clear) Urine Protein (Negative) Urine Ketones (Negative) Urine Blood (Negative) Ur Leukocyte Esterase (Negative) Urine RBC (0-5) /hpf Urine WBC (0-5) /hpf Urine WBC Clumps (None) /hpf Urine Bacteria (None) /hpf Urine Yeast (Budding) (None) /hpf
[2024-05-09 08:37] LABS: Basophils # (A) 0.07 X 10*3/uL (0.00-0.10); Basophils % (A) 1.1 %; Eosinophils # (A) 0.17 X 10*3/uL (0.04-0.35); Eosinophils % (A) 2.7 %; HCT 39.4 % (37.2-46.3); HGB 12.5 g/dL (12.0-15.0); Lymphocytes # (A) 1.09 X 10*3/uL (0.90-5.00); Lymphocytes % (A) 17.5 %; MCH 31.9 pg (27.0-32.0); MCHC 31.7 g/dL (32.0-37.0); MCV 100.5 FL (80.0-97.0); Mean Platelet Volume 11.2 FL (9.5-12.2); Monocytes # (A) 0.76 X 10*3/uL (0.20-1.00); Monocytes % (A) 12.2 %; NRBC Per 100 WBC 0 X 10*3/uL (0.00-0.01); Neutrophils # (A) 4.02 X 10*3/uL (1.80-7.70); Neutrophils % (A) 64.7 %; Platelet Count 353 X 10*3/uL (140-440); RBC 3.92 X 10*6/uL (4.10-5.20); RDW 15.4 % (11.5-14.5); WBC 6.22 X 10*3/uL (4.50-10.00)
[2024-05-09 08:46] LABS: ALT 61 U/L (8-44); AST 65 U/L (13-35); Albumin 2.9 g/dL (3.8-4.9); Albumin/Globulin Ratio 1.53 Ratio (1.60-3.17); Alkaline Phosphatase 147 U/L (41-126); BUN/Creat Ratio 25.27 Ratio (12.00-20.00); Blood Urea Nitrogen 27.8 mg/dL (9.0-27.0); Calcium 8.8 mg/dL (8.7-10.3); Carbon Dioxide 25.2 mmol/L (21.6-31.8); Chloride 102 mmol/L (96-109); Globulin 1.9 g/dL (1.6-3.3); Glucose 109 mg/dL (70-110); Potassium 3.6 mmol/L (3.5-5.5); Sodium 139 mmol/L (135-145); Total Bilirubin 0.4 mg/dL (0.3-1.2); Total Protein 4.8 g/dL (6.2-8.2)
[2024-05-09] MEDS: MULTIVITAMINS, THERA 1 EACH TAB PO SCH (09:34)
[2024-05-09] MEDS: FUROSEMIDE 20 MG TAB PO SCH (09:34)
[2024-05-09] MEDS: METOPROLOL SUCCINATE (ER) 100 MG TAB.ER.24H PO SCH (09:35)
[2024-05-09] MEDS: METOPROLOL SUCCINATE (ER) 50 MG TAB.ER.24H PO STA (11:47)
[2024-05-09 12:05] LABS: Glucose,Whole Blood 183 mg/dL (70-110)
[2024-05-09 17:18] LABS: Glucose,Whole Blood 165 mg/dL (70-110)
[2024-05-09] MEDS: POTASSIUM CHLORIDE ER 20 MEQ TAB.ER PO STA (17:37)
[2024-05-09 20:15] LABS: Glucose,Whole Blood 135 mg/dL (70-110)
[2024-05-10 07:10] LABS: Glucose,Whole Blood 141 mg/dL (70-110)
--- NOTE | 2024-05-10 07:19 | P.PN ---
Subjective Progress Note Date: 05/10/24 Principal diagnosis: Hospital course: Patient is a 78-year-old female with past medical history of persistent atrial fibrillation, hyperlipidemia, hypertension, CAD status post stent, HFrEF with EF 25%, obstructive sleep apnea, gastric sleeve, hysterectomy, hernia repair, anxiety, depression, hypertension, who is ambulating using a cane and rolling walker. She was recently in the hospital for acute toxic metabolic encephalopathy with underlying dementia likely due to untreated hypothyroidism and UTI with component of delirium, acute hypoxic respiratory failure because of systolic congestive heart failure exacerbation with ejection fraction 45 to 50%, transaminitis associated with hyperbilirubinemia and JANNETH on CKD stage III, bed bug infestation on arrival(03/04/24) and was discharged on 03/26/24. She presented to the ED today with dysuria, increased frequency and urgency, suprapubic tenderness and chills since a couple of weeks. She reports sharp lower abdominal pain not radiating. She mentions she was started on Macrobid 2 days ago for the UTI but her symptoms did not improve. She also mentions coughing and yellow phlegm production with no blood. She reports mild headache and constipation. Denies fever, blurry vision, sore throat, runny nose, shortness of breath, chest pain, palpitations, flank pain, weakness, dizziness. 05/09/24 Patient was seen and examined at bedside in room 524. Her main complain today of burning with urination and suprapubic tenderness. Denies fever, chills, shortness of breath. Labs today show BUN 27.8, glucose 183, A1c 7.2. Subjective: Patient was seen and examined at bedside in room 524. She complains of suprapubic tenderness, dysuria, burning with urination. Denies chest pain, palpitations, fever, chills, shortness of breath. Labs significant for glucose 135. Physical exam: Vital signs are reviewed General: nontoxic, no distress, appears at stated age Derm: warm, dry, intact Head: atraumatic, normocephalic, symmetric Eyes: EOMI, no lid lag, anicteric sclera Mouth: no lip lesion, mucus membranes moist Cardiovascular: S1 S2 reg, no murmur, rubs, or gallops Lungs: CTA bilateral, no rhonchi, no rales, no accessory muscle use Abdominal: Suprapubic tenderness, soft, no appreciable organomegaly Extremities: Trace bilateral pitting edema, no gross muscle atrophy, no contractures Neuro: Alert, Oriented, left lower extremity strength 3/5, right lower extremity 4/5, upper extremities 5/5, CNII-XII grossly intact Psych: well appearing, appropriate affect Assessment/plan: 78-year-old female with past medical history of persistent atrial fibrillation, systolic congestive heart failure, has presented to the ED today with dysuria, increased frequency and urgency, suprapubic tenderness and chills and is diagn osed with suspected complicated MDRO cystitis and A-fib with RVR. Acute recurrent complicated MDRO cystitis: -Repeat Urinalysis reflex to culture -midstream clean catch as the patient isn't improving; if improved urinalysis with persistent symptoms, consider interstitial cystitis on differential. -Urine culture from 05/05/24 shows more than 100,000 CFU per mL Proteus mirabilis and a 50-100,000 CFU per mL E. coli that is sensitive to cephalosporins(including ceftriaxone). -Continue Ceftriaxone 2 g IV Q24HR -Continue Acetaminophen 650 mg p.o. Q6HR PRN -Patient has history of recurrent urinary tract infection, previous renal scans did not show any obstructive uropathy. Either she is having recurrent UTIs secondary to poor hygiene or due to anatomical cause. Consider outpatient urology referral Atrial fibrillation with RVR: EKG independently interpreted yesterday, shows atrial fibrillation with RVR Metoprolol succinate changed to metoprolol tartrate 50mg PO QID -Continue Eliquis 5 mg twice daily -Monitor on telemetry, telemetry data reviewed which showed persistently elevated heart rate ranging between 100-1 20 Type 2 diabetes mellitus, hyperglycemia: -Glucose range between 1 35-1 58 -HbA1c 7.2 -Insulin sliding scale, monitor for hypoglycemia -Not on any antidiabetic medications at home, consider metformin at discharge CKD stage III A: -BUN , creatinine , GFR -Avoid NSAIDs Transaminitis, stable: -AST 84, ALT 63 -Will continue to monitor -Previous abdominal ultrasound did not show any hepatobiliary pathology Debility: -Physical therapy consult ordered -She denied PT evaluation History of dementia: -Likely at baseline mentation -Continue memantine 5 mg PO twice daily HFrEF, not in exacerbation, LVEF 25% Suspected ischemic cardiomyopathy History of CAD status post stent: -Continue metoprolol succinate 50 mg PO QID -Continue Lasix 20 mg p.o. every 48 hours -Not on any statins or antiplatelet therapy -Currently not on guideline directed medical therapy for heart failure, needs outpatient follow-up with cardiology -Consider STEWART inhibitor/ARB/ARNI outpatient Hypothyroidism: -Continue 75 mcg daily levothyroxine History of asthma: -Continue Montelukast 10 mg PO HS History of anxiety: Fluoxetine 60 mg p.o. at bedtime Resolved hyponatremia, likely hypovolemic: -Today Na 138 -Normal saline IV 20 mill per hr -Status post normal saline 500 cc in the ED -History of systolic CHF, monitor fluid status closely Resolved, hypokalemia: -Today K 4.0 improved from 3.6 yesterday -Potassium 40meq once stat given yesterday -Potassium chloride 40 mg p.o. once, Potassium chloride 20 mEq IV once, repleted in the ED -Magnesium within normal limits -Will continue to monitor BMP, magnesium level DVT prophylaxis: Eliquis 5 mg twice daily CODE STATUS: Full code Disposition: Pending clinical course I have seen and evaluated the patient today. Discussed with the resident and agree with the residents finding and plan as documented in the resident's note. Changes highlighted in blue font. Objective - Vital Signs Vital signs: Vital Signs Temp 98.9 F 05/10/24 01:31 Pulse 103 H 05/10/24 01:31 Resp 17 05/10/24 01:31 BP 122/84 05/10/24 01:31 Pulse Ox 92 L 05/10/24 01:31 FiO2 Intake & Output 05/09/24 05/10/24 05/10/24 18:59 06:59 18:59 Output Total 450 150 Balance -450 -150 Output: Urine 450 150 Other: Voiding Method Bedpan Bedpan External Catheter External Catheter # Voids 1 1 # Bowel Movements 1 - Labs CBC & Chem 7: 05/10/24 03:41 05/10/24 03:41 Labs: Abnormal Lab Results - Last 24 Hours (Table) 05/09/24 05/09/24 05/09/24 Range/Units 02:53 02:53 02:53 RBC 3.92 L (4.10-5.20) X 10*6/uL MCV 100.5 H (80.0-97.0) FL MCHC 31.7 L (32.0-37.0) g/dL RDW 15.4 H (11.5-14.5) % Immature Gran # 0.11 H (0.00-0.04) X 10*3/uL BUN 27.8 H (9.0-27.0) mg/dL Est GFR (CKD-EPI) 51 L (>=60) BUN/Creatinine Ratio 25.27 H (12.00-20.00) Ratio POC Glucose (mg/dL) (70-110) mg/dL Hemoglobin A1c 7.2 H (<=6.0) % AST 65 H (13-35) U/L ALT 61 H (8-44) U/L Alkaline Phosphatase 147 H (41-126) U/L Total Protein 4.8 L (6.2-8.2) g/dL Albumin 2.9 L (3.8-4.9) g/dL Albumin/Globulin Ratio 1.53 L (1.60-3.17) Ratio 05/09/24 05/09/24 05/09/24 Range/Units 07:02 12:03 17:16 RBC (4.10-5.20) X 10*6/uL MCV (80.0-97.0) FL MCHC (32.0-37.0) g/dL RDW (11.5-14.5) % Immature Gran # (0.00-0.04) X 10*3/uL BUN (9.0-27.0) mg/dL Est GFR (CKD-EPI) (>=60) BUN/Creatinine Ratio (12.00-20.00) Ratio POC Glucose (mg/dL) 114 H 183 H 165 H (70-110) mg/dL Hemoglobin A1c (<=6.0) % AST (13-35) U/L ALT (8-44) U/L Alkaline Phosphatase (41-126) U/L Total Protein (6.2-8.2) g/dL Albumin (3.8-4.9) g/dL Albumin/Globulin Ratio (1.60-3.17) Ratio 05/09/24 Range/Units 20:11 RBC (4.10-5.20) X 10*6/uL MCV (80.0-97.0) FL MCHC (32.0-37.0) g/dL RDW (11.5-14.5) % Immature Gran # (0.00-0.04) X 10*3/uL BUN (9.0-27.0) mg/dL Est GFR (CKD-EPI) (>=60) BUN/Creatinine Ratio (12.00-20.00) Ratio POC Glucose (mg/dL) 135 H (70-110) mg/dL Hemoglobin A1c (<=6.0) % AST (13-35) U/L ALT (8-44) U/L Alkaline Phosphatase (41-126) U/L Total Protein (6.2-8.2) g/dL Albumin (3.8-4.9) g/dL Albumin/Globulin Ratio (1.60-3.17) Ratio
[2024-05-10] MEDS: METOPROLOL TARTRATE 50 MG TAB PO SCH (08:53)
[2024-05-10] MEDS ORDERED: METOPROLOL SUCCINATE (ER) 50 MG TAB.ER.24H PO SCH (09:00)
[2024-05-10 11:46] LABS: HCT 40.1 % (37.2-46.3); HGB 12.9 g/dL (12.0-15.0); MCH 32.2 pg (27.0-32.0); MCHC 32.2 g/dL (32.0-37.0); NRBC Per 100 WBC 0 X 10*3/uL (0.00-0.01); Platelet Count 390 X 10*3/uL (140-440); RBC 4.01 X 10*6/uL (4.10-5.20); RDW 15.2 % (11.5-14.5); WBC 5.85 X 10*3/uL (4.50-10.00)
[2024-05-10 12:02] LABS: ALT 63 U/L (8-44); AST 84 U/L (13-35); Alkaline Phosphatase 159 U/L (41-126); Blood Urea Nitrogen 21.4 mg/dL (9.0-27.0); Carbon Dioxide 24.8 mmol/L (21.6-31.8); Chloride 103 mmol/L (96-109); Glucose 140 mg/dL (70-110); Magnesium 1.7 mg/dL (1.5-2.4); Sodium 138 mmol/L (135-145); Total Bilirubin 0.4 mg/dL (0.3-1.2)
[2024-05-10 12:23] LABS: Glucose,Whole Blood 158 mg/dL (70-110)
[2024-05-10 17:18] LABS: Bacteria,Urine Many /hpf; Mucus,Urine Occasional /hpf; RBC,Urine >182 /hpf (0-5); Squamous Epithelial Cell,Urine 11 /hpf (0-4); WBC,Urine >182 /hpf (0-5)
[2024-05-10 17:19] LABS: Appearance,Urine Bloody (Clear)
[2024-05-10 17:37] LABS: Glucose,Whole Blood 131 mg/dL (70-110)
[2024-05-10 20:28] LABS: Glucose,Whole Blood 170 mg/dL (70-110)
[2024-05-11 07:53] LABS: Glucose,Whole Blood 119 mg/dL (70-110)
[2024-05-11] MEDS: DILTIAZEM ORAL 30 MG TAB PO SCH (09:15)
[2024-05-11 10:16] LABS: Appearance,Urine Turbid (Clear); Bacteria,Urine Many /hpf; Bilirubin,Urine Negative (Negative); Blood,Urine Large (Negative); Color,Urine Light Red; Glucose,Urine (UA) Negative (Negative); Ketones,Urine Negative (Negative); Leukocyte Esterase,Urine Large (Negative); Nitrite,Urine Negative (Negative); PH, Urine 7.5 (5.0-8.0); Protein,Urine 2+ (Negative); RBC,Urine >182 /hpf (0-5); Specific Gravity,Urine 1.016 (1.001-1.035); Squamous Epithelial Cell,Urine 9 /hpf (0-4); Urobilinogen,Urine <2.0 mg/dL (<2.0); WBC,Urine >182 /hpf (0-5)
--- NOTE | 2024-05-11 11:56 | P.PN ---
Subjective Progress Note Date: 05/11/24 Hospital course: Patient is a 78-year-old female with past medical history of persistent atrial fibrillation, hyperlipidemia, hypertension, CAD status post stent, HFrEF with EF 25%, obstructive sleep apnea, gastric sleeve, hysterectomy, hernia repair, anxiety, depression, hypertension, who is ambulating using a cane and rolling walker. She was recently in the hospital for acute toxic metabolic encephalopathy with underlying dementia likely due to untreated hypothyroidism and UTI with component of delirium, acute hypoxic respiratory failure because of systolic congestive heart failure exacerbation with ejection fraction 45 to 50%, transaminitis associated with hyperbilirubinemia and JANNETH on CKD stage III, bed bug infestation on arrival(03/04/24) and was discharged on 03/26/24. She presented to the ED today with dysuria, increased frequency and urgency, suprapubic tenderness and chills since a couple of weeks. She reports sharp lower abdominal pain not radiating. She mentions she was started on Macrobid 2 days ago for the UTI but her symptoms did not improve. She also mentions coughing and yellow phlegm production with no blood. She reports mild headache and constipation. Denies fever, blurry vision, sore throat, runny nose, shortness of breath, chest pain, palpitations, flank pain, weakness, dizziness. 05/09/24 Patient was seen and examined at bedside in room 524. Her main complain today of burning with urination and suprapubic tenderness. Denies fever, chills, shortness of breath. Labs today show BUN 27.8, glucose 183, A1c 7.2. Subjective: Patient was seen and examined at bedside. Claims that dysuria is improving. Physical exam: Vital signs are reviewed General: nontoxic, no distress, appears at stated age Derm: warm, dry, intact Head: atraumatic, normocephalic, symmetric Eyes: EOMI, no lid lag, anicteric sclera Mouth: no lip lesion, mucus membranes moist Cardiovascular: S1 S2 reg, no murmur, rubs, or gallops Lungs: CTA bilateral, no rhonchi, no rales, no accessory muscle use Abdominal: Suprapubic tenderness, soft, no appreciable organomegaly Extremities: Trace bilateral pitting edema, no gross muscle atrophy, no contractures Neuro: Alert, Oriented, left lower extremity strength 3/5, right lower extremity 4/5, upper extremities 5/5, CNII-XII grossly intact Psych: well appearing, appropriate affect Assessment/plan: 78-year-old female with past medical history of persistent atrial fibrillation, systolic congestive heart failure, has presented to the ED today with dysuria, increased frequency and urgency, suprapubic tenderness and chills and is diagnosed with suspected complicated MDRO cystitis and A-fib with RVR. Acute recurrent complicated MDRO cystitis Hematuria -Renal/bladder ultrasound pending -Repeat urinalysis has significant squamous epithelial cells -Symptoms slightly improved -Continue Ceftriaxone 2 g IV Q24HR -Continue Acetaminophen 650 mg p.o. Q6HR PRN -Urology consulted -Patient has history of recurrent urinary tract infection, previous renal scans did not show any obstructive uropathy. Either she is having recurrent UTIs secondary to poor hygiene or due to anatomical cause Atrial fibrillation with RVR: On metoprolol tartrate 50mg PO QID -Continue Eliquis 5 mg twice daily -Monitor on telemetry, telemetry data reviewed which showed persistently elevated heart rate ranging between 100-1 20 -Also started on Cardizem oral 30 QID Type 2 diabetes mellitus, hyperglycemia: -Glucose range between 1 19-1 70 -HbA1c 7.2 -Insulin sliding scale, monitor for hypoglycemia -Not on any antidiabetic medications at home, consider metformin at discharge CKD stage III A: -BUN , creatinine , GFR -Avoid NSAIDs Transaminitis, stable: -AST 84, ALT 63 -Will continue to monitor -Previous abdominal ultrasound did not show any hepatobiliary pathology Debility: -Physical therapy consult ordered -She denied PT evaluation History of dementia: -Likely at baseline mentation -Continue memantine 5 mg PO twice daily HFrEF, not in exacerbation, LVEF 25% Suspected ischemic cardiomyopathy History of CAD status post stent: -Continue metoprolol succinate 50 mg PO QID -Continue Lasix 20 mg p.o. every 48 hours -Not on any statins or antiplatelet therapy -Currently not on guideline directed medical therapy for heart failure, needs outpatient follow-up with cardiology -Consider STEWART inhibitor/ARB/ARNI outpatient Hypothyroidism: -Continue 75 mcg daily levothyroxine History of asthma: -Continue Montelukast 10 mg PO HS History of anxiety: Fluoxetine 60 mg p.o. at bedtime Resolved hyponatremia, likely hypovolemic: Resolved, hypokalemia: DVT prophylaxis: Eliquis 5 mg twice daily CODE STATUS: Full code Disposition: Pending clinical course Objective - Vital Signs Vital signs: Vital Signs Temp 97.8 F 05/11/24 07:53 Pulse 108 H 05/11/24 08:45 Resp 18 05/11/24 08:45 BP 133/94 05/11/24 07:53 Pulse Ox 95 05/11/24 07:53 FiO2 Intake & Output 05/10/24 05/11/24 05/11/24 18:59 06:59 18:59 Intake Total 200 Output Total 95 325 Balance -95 -125 Intake: Oral 200 Output: Urine 95 325 Other: Voiding Method Bedpan Bedpan Bedpan External Catheter Diaper Diaper External Catheter External Catheter # Bowel Movements 3 - Labs CBC & Chem 7: 05/10/24 03:41 05/10/24 03:41 Labs: Abnormal Lab Results - Last 24 Hours (Table) 05/10/24 05/10/24 05/10/24 Range/Units 03:41 12:22 17:00 Est GFR (CKD-EPI) 58 L (>=60) BUN/Creatinine Ratio 21.40 H (12.00-20.00) Ratio Glucose 140 H (70-110) mg/dL POC Glucose (mg/dL) 158 H (70-110) mg/dL AST 84 H (13-35) U/L ALT 63 H (8-44) U/L Alkaline Phosphatase 159 H (41-126) U/L Total Protein 5.0 L (6.2-8.2) g/dL Albumin 3.0 L (3.8-4.9) g/dL Albumin/Globulin Ratio 1.50 L (1.60-3.17) Ratio Urine Appearance Bloody H (Clear) Urine Protein (Negative) Urine Blood (Negative) Ur Leukocyte Esterase (Negative) Urine RBC >182 H (0-5) /hpf Urine WBC >182 H (0-5) /hpf Urine WBC Clumps (None) /hpf Ur Squamous Epith Cells 11 H (0-4) /hpf Urine Bacteria Many H (None) /hpf Urine Mucus Occasional H (None) /hpf 05/10/24 05/10/24 05/11/24 Range/Units 17:34 20:26 07:51 Est GFR (CKD-EPI) (>=60) BUN/Creatinine Ratio (12.00-20.00) Ratio Glucose (70-110) mg/dL POC Glucose (mg/dL) 131 H 170 H 119 H (70-110) mg/dL AST (13-35) U/L ALT (8-44) U/L Alkaline Phosphatase (41-126) U/L Total Protein (6.2-8.2) g/dL Albumin (3.8-4.9) g/dL Albumin/Globulin Ratio (1.60-3.17) Ratio Urine Appearance (Clear) Urine Protein (Negative) Urine Blood (Negative) Ur Leukocyte Esterase (Negative) Urine RBC (0-5) /hpf Urine WBC (0-5) /hpf Urine WBC Clumps (None) /hpf Ur Squamous Epith Cells (0-4) /hpf Urine Bacteria (None) /hpf Urine Mucus (None) /hpf 05/11/24 Range/Units 09:31 Est GFR (CKD-EPI) (>=60) BUN/Creatinine Ratio (12.00-20.00) Ratio Glucose (70-110) mg/dL POC Glucose (mg/dL) (70-110) mg/dL AST (13-35) U/L ALT (8-44) U/L Alkaline Phosphatase (41-126) U/L Total Protein (6.2-8.2) g/dL Albumin (3.8-4.9) g/dL Albumin/Globulin Ratio (1.60-3.17) Ratio Urine Appearance Turbid H (Clear) Urine Protein 2+ H (Negative) Urine Blood Large H (Negative) Ur Leukocyte Esterase Large H (Negative) Urine RBC >182 H (0-5) /hpf Urine WBC >182 H (0-5) /hpf Urine WBC Clumps Many H (None) /hpf Ur Squamous Epith Cells 9 H (0-4) /hpf Urine Bacteria Many H (None) /hpf Urine Mucus (None) /hpf
[2024-05-11 12:25] LABS: Glucose,Whole Blood 157 mg/dL (70-110)
--- NOTE | 2024-05-11 13:20 | US ---
EXAMINATION TYPE: US kidneys/renal and bladder DATE OF EXAM: 05/11/2024 COMPARISON: US 2023 CLINICAL INDICATION: Female, 78 years old with history of recurrent cystitis; Recurrent cystitis. EXAM MEASUREMENTS: Right Kidney: 9.9 x 5.4 x 4.7 cm Left Kidney: 9.5 x 5.1 x 4.9 cm Right Kidney: Prominent renal pelvis. Hypoechoic area seen upper/mid: 1.1 x 0.8 x 0.8 cm. Complex area seen laterally/inferiorly: 1.4 x 1.3 x 1.3 cm. Left Kidney: Anechoic area seen laterally: 1.7 x 1.1 x 1.5 cm. Hypoechoic area seen inferiorly: 1.5 x 1.2 x 1.3 cm. Bladder: Echogenic material seen within the bladder: 2.3 x 6.0 x 5.0 cm. Bilateral Jets seen: Yes IMPRESSION: 1. Layering suspected debris within the bladder correlate with urinalysis. 2. No evidence for obstructive uropathy. 3. Renal cortical cysts bilaterally.
[2024-05-11 17:28] LABS: Glucose,Whole Blood 95 mg/dL (70-110)
[2024-05-11 20:38] LABS: Glucose,Whole Blood 175 mg/dL (70-110)
[2024-05-12 07:11] LABS: Glucose,Whole Blood 113 mg/dL (70-110)
--- NOTE | 2024-05-12 07:31 | P.PN ---
Subjective Progress Note Date: 05/12/24 Principal diagnosis: Hospital course: Patient is a 78-year-old female with past medical history of persistent atrial fibrillation, hyperlipidemia, hypertension, CAD status post stent, HFrEF with EF 25%, obstructive sleep apnea, gastric sleeve, hysterectomy, hernia repair, anxiety, depression, hypertension, who is ambulating using a cane and rolling walker. She was recently in the hospital for acute toxic metabolic encephalopathy with underlying dementia likely due to untreated hypothyroidism and UTI with component of delirium, acute hypoxic respiratory failure because of systolic congestive heart failure exacerbation with ejection fraction 45 to 50%, transaminitis associated with hyperbilirubinemia and JANNETH on CKD stage III, bed bug infestation on arrival(03/04/24) and was discharged on 03/26/24. She presented to the ED today with dysuria, increased frequency and urgency, suprapubic tenderness and chills since a couple of weeks. She reports sharp lower abd ominal pain not radiating. She mentions she was started on Macrobid 2 days ago for the UTI but her symptoms did not improve. She also mentions coughing and yellow phlegm production with no blood. She reports mild headache and constipation. Denies fever, blurry vision, sore throat, runny nose, shortness of breath, chest pain, palpitations, flank pain, weakness, dizziness. 05/09/24 Patient was seen and examined at bedside in room 524. Her main complain today of burning with urination and suprapubic tenderness. Denies fever, chills, shortness of breath. Labs today show BUN 27.8, glucose 183, A1c 7.2. 05/10/24 Patient was seen and examined at bedside. Claims that dysuria is improving. Subjective: Patient seen and examined at bedside. No acute events overnight. Still complains of. Denies. Labs significant for glucose 113. Physical exam: Vital signs are reviewed General: nontoxic, no distress, appears at stated age Derm: warm, dry, intact Head: atraumatic, normocephalic, symmetric Eyes: EOMI, no lid lag, anicteric sclera Mouth: no lip lesion, mucus membranes moist Cardiovascular: S1 S2 reg, no murmur, rubs, or gallops Lungs: CTA bilateral, no rhonchi, no rales, no accessory muscle use Abdominal: Suprapubic tenderness, soft, no appreciable organomegaly Extremities: Trace bilateral pitting edema, no gross muscle atrophy, no contractures Neuro: Alert, Oriented, left lower extremity strength 3/5, right lower extremity 4/5, upper extremities 5/5, CNII-XII grossly intact Psych: well appearing, appropriate affect Assessment/plan: 78-year-old female with past medical history of persistent atrial fibrillation, systolic congestive heart failure, has presented to the ED today with dysuria, increased frequency and urgency, suprapubic tenderness and chills and is diagnosed with suspected complicated MDRO cystitis and A-fib with RVR. Acute recurrent complicated MDRO cystitis Hematuria -Renal/bladder ultrasound pending -Repeat urinalysis has significant squamous epithelial cells -Symptoms slightly improved -Continue Ceftriaxone 2 g IV Q24HR -Continue Acetaminophen 650 mg p.o. Q6HR PRN -Urology consulted -Patient has history of recurrent urinary tract infection, previous renal scans did not show any obstructive uropathy. Either she is having recurrent UTIs secondary to poor hygiene or due to anatomical cause Atrial fibrillation with RVR: On metoprolol tartrate 50mg PO QID -Continue Eliquis 5 mg twice daily -Monitor on telemetry, telemetry data reviewed which showed persistently elevated heart rate in past 24h ranging between 97-121 -Also started on Cardizem oral 30 QID Type 2 diabetes mellitus, hyperglycemia: -Glucose range in the past 24h between 95-175 -HbA1c 7.2 -Insulin sliding scale, monitor for hypoglycemia -Not on any antidiabetic medications at home, consider metformin at discharge CKD stage III A: -BUN , creatinine , GFR -Avoid NSAIDs Transaminitis, stable: -AST , ALT -Will continue to monitor -Previous abdominal ultrasound did not show any hepatobiliary pathology Debility: -Physical therapy consult ordered -She denied PT evaluation History of dementia: -Likely at baseline mentation -Continue memantine 5 mg PO twice daily HFrEF, not in exacerbation, LVEF 25% Suspected ischemic cardiomyopathy History of CAD status post stent: -Continue metoprolol succinate 50 mg PO QID -Continue Lasix 20 mg p.o. every 48 hours -Not on any statins or antiplatelet therapy -Currently not on guideline directed medical therapy for heart failure, needs outpatient follow-up with cardiology -Consider STEWART inhibitor/ARB/ARNI outpatient Hypothyroidism: -Continue 75 mcg daily levothyroxine History of asthma: -Continue Montelukast 10 mg PO HS History of anxiety: Fluoxetine 60 mg p.o. at bedtime Resolved hypokalemia; hyponatremia, likely hypovolemic DVT prophylaxis: Eliquis 5 mg twice daily CODE STATUS: Full code Disposition: Pending clinical course Objective - Vital Signs Vital signs: Vital Signs Temp 98.0 F 05/12/24 01:43 Pulse 97 05/12/24 01:43 Resp 16 05/12/24 01:43 BP 127/87 05/12/24 01:43 Pulse Ox 93 L 05/12/24 01:43 FiO2 Intake & Output 05/11/24 05/12/24 05/12/24 18:59 06:59 18:59 Output Total 725 300 Balance -725 -300 Output: Urine 725 300 Other: Voiding Method Bedpan Bedpan Diaper Diaper External Catheter External Catheter # Bowel Movements 1 - Labs CBC & Chem 7: 05/10/24 03:41 05/10/24 03:41 Labs: Abnormal Lab Results - Last 24 Hours (Table) 05/11/24 05/11/24 05/11/24 Range/Units 07:51 09:31 12:24 POC Glucose (mg/dL) 119 H 157 H (70-110) mg/dL Urine Appearance Turbid H (Clear) Urine Protein 2+ H (Negative) Urine Blood Large H (Negative) Ur Leukocyte Esterase Large H (Negative) Urine RBC >182 H (0-5) /hpf Urine WBC >182 H (0-5) /hpf Urine WBC Clumps Many H (None) /hpf Ur Squamous Epith Cells 9 H (0-4) /hpf Urine Bacteria Many H (None) /hpf 05/11/24 05/12/24 Range/Units 20:36 07:09 POC Glucose (mg/dL) 175 H 113 H (70-110) mg/dL Urine Appearance (Clear) Urine Protein (Negative) Urine Blood (Negative) Ur Leukocyte Esterase (Negative) Urine RBC (0-5) /hpf Urine WBC (0-5) /hpf Urine WBC Clumps (None) /hpf Ur Squamous Epith Cells (0-4) /hpf Urine Bacteria (None) /hpf Microbiology - Last 24 Hours (Table) 05/10/24 17:00 Urine Culture - Preliminary Urine,Voided
[2024-05-12 07:32] VITALS: BP 136/89; PULSE 106; RESP 15; TEMP 97.5
[2024-05-12] MEDS ORDERED: MULTIVITAMINS, THERA 1 EACH TAB ONE (09:20)
[2024-05-12] MEDS ORDERED: APIXABAN 5 MG TAB ONE ×2 (09:20→20:21)
[2024-05-12] MEDS ORDERED: SODIUM CHLORIDE 0.9% 50 ML BAG ONE (09:21)
[2024-05-12] MEDS ORDERED: SODIUM CHLORIDE 0.9% 50 ML ONE (09:21)
[2024-05-12] MEDS ORDERED: METOPROLOL TARTRATE 50 MG TAB ONE ×4 (09:21→21:59)
[2024-05-12] MEDS ORDERED: cefTRIAXone 2 GM VIAL ONE (09:21)
[2024-05-12 11:56] LABS: Glucose,Whole Blood 208 mg/dL (70-110)
[2024-05-12] MEDS ORDERED: INSULIN ASPART (NovoLOG) 100 UNIT/ML VIAL SQ ONE (13:08)
[2024-05-12] MEDS ORDERED: polyethylene glycoL 3350 17 GM POWD.PACK ONE (13:08)
[2024-05-12] MEDS ORDERED: SENNOSIDES-DOCUSATE SODIUM 1 EACH TAB PO ONE ×2 (13:10)
[2024-05-12] MEDS ORDERED: SENNOSIDES 8.6 MG TAB ONE (13:11)
[2024-05-12 16:58] LABS: Glucose,Whole Blood 100 mg/dL (70-110)
[2024-05-12] MEDS ORDERED: MONTELUKAST 10 MG TAB ONE (20:22)
[2024-05-12] MEDS ORDERED: allopurinoL 300 MG TAB PO ONE (20:22)
[2024-05-12] MEDS ORDERED: FLUoxetine HCL 20 MG CAP ONE (20:22)
[2024-05-12 20:34] LABS: Glucose,Whole Blood 124 mg/dL (70-110)
[2024-05-12] MEDS ORDERED: SODIUM CHLORIDE 0.9% 1,000 ML BAG ONE (23:59)
[2024-05-13] MEDS ORDERED: LEVOTHYROXINE 75 MCG TAB ONE (05:19)
[2024-05-13 07:04] LABS: Glucose,Whole Blood 107 mg/dL (70-110)
[2024-05-13] MEDS ORDERED: APIXABAN 5 MG TAB ONE ×2 (10:01→21:16)
[2024-05-13] MEDS ORDERED: MULTIVITAMINS, THERA 1 EACH TAB ONE (10:03)
[2024-05-13] MEDS ORDERED: METOPROLOL TARTRATE 50 MG TAB ONE ×4 (10:04→21:17)
[2024-05-13] MEDS ORDERED: SODIUM CHLORIDE 0.9% 50 ML ONE (10:04)
[2024-05-13] MEDS ORDERED: bisacodyL 10 MG SUPP RECTAL ONE ×2 (10:04)
[2024-05-13] MEDS ORDERED: SENNOSIDES 8.6 MG TAB ONE (10:04)
[2024-05-13] MEDS ORDERED: cefTRIAXone 2 GM VIAL ONE (10:04)
[2024-05-13] MEDS ORDERED: polyethylene glycoL 3350 17 GM POWD.PACK ONE (10:04)
[2024-05-13] MEDS ORDERED: SODIUM CHLORIDE 0.9% 50 ML BAG ONE (10:04)
[2024-05-13 12:28] LABS: Glucose,Whole Blood 143 mg/dL (70-110)
[2024-05-13 16:58] LABS: Glucose,Whole Blood 127 mg/dL (70-110)
[2024-05-13 20:40] LABS: Glucose,Whole Blood 149 mg/dL (70-110)
[2024-05-13] MEDS ORDERED: MONTELUKAST 10 MG TAB ONE (21:17)
[2024-05-13] MEDS ORDERED: FLUoxetine HCL 20 MG CAP ONE (21:17)
[2024-05-13] MEDS ORDERED: allopurinoL 300 MG TAB PO ONE (21:17)
[2024-05-13] MEDS ORDERED: SENNOSIDES-DOCUSATE SODIUM 1 EACH TAB PO ONE ×2 (23:44)
[2024-05-14] MEDS ORDERED: LEVOTHYROXINE 75 MCG TAB ONE (05:55)
[2024-05-14 07:05] LABS: Glucose,Whole Blood 112 mg/dL (70-110)
[2024-05-14] MEDS ORDERED: APIXABAN 5 MG TAB ONE ×2 (09:23→21:16)
[2024-05-14] MEDS ORDERED: FUROSEMIDE 20 MG TAB ONE (09:24)
[2024-05-14] MEDS ORDERED: MULTIVITAMINS, THERA 1 EACH TAB ONE (09:25)
[2024-05-14] MEDS ORDERED: METOPROLOL TARTRATE 50 MG TAB ONE ×2 (09:25→21:17)
[2024-05-14 11:59] LABS: Glucose,Whole Blood 137 mg/dL (70-110)
[2024-05-14] MEDS ORDERED: HEPARIN SODIUM,PORCINE 5,000 UNIT/ML 1 ML VIAL ONE (16:50)
[2024-05-14 17:11] LABS: Glucose,Whole Blood 163 mg/dL (70-110)
[2024-05-14 20:21] LABS: Glucose,Whole Blood 200 mg/dL (70-110)
[2024-05-14] MEDS ORDERED: MONTELUKAST 10 MG TAB ONE (21:17)
[2024-05-14] MEDS ORDERED: INSULIN ASPART (NovoLOG) 100 UNIT/ML VIAL SQ ONE (21:17)
[2024-05-14] MEDS ORDERED: allopurinoL 300 MG TAB PO ONE (21:18)
[2024-05-14] MEDS ORDERED: FLUoxetine HCL 20 MG CAP ONE (21:18)
[2024-05-14] MEDS ORDERED: METOPROLOL SUCCINATE (ER) 50 MG TAB.ER.24H PO ONE (21:35)
[2024-05-14] MEDS ORDERED: SENNOSIDES 8.6 MG TAB ONE (21:37)
[2024-05-14] MEDS ORDERED: DILTIAZEM ORAL 30 MG TAB ONE (21:59)
[2024-05-14] MEDS ORDERED: DILTIAZEM CD 120 MG CAP.ER.24H PO ONE (21:59)
[2024-05-14] MEDS ORDERED: MEMANTINE 5 MG TAB ONE (21:59)
[2024-05-14] MEDS ORDERED: SODIUM CHLORIDE 0.9% 50 ML BAG IV ONE (21:59)
[2024-05-14] MEDS ORDERED: DAPTOmycin 500 MG VIAL ONE (21:59)
[2024-05-14] MEDS ORDERED: SODIUM CHLORIDE 0.9% 100 ML BAG ONE (23:59)
[2024-05-14] MEDS ORDERED: MEROPENEM 500 MG VIAL ONE (23:59)
[2024-05-15] MEDS ORDERED: LEVOTHYROXINE 75 MCG TAB ONE (05:45)
[2024-05-15 07:22] LABS: Glucose,Whole Blood 109 mg/dL (70-110)
[2024-05-15] MEDS ORDERED: APIXABAN 5 MG TAB ONE ×2 (09:20→20:31)
[2024-05-15] MEDS ORDERED: FUROSEMIDE 20 MG TAB ONE (09:21)
[2024-05-15] MEDS ORDERED: MULTIVITAMINS, THERA 1 EACH TAB ONE (09:21)
[2024-05-15] MEDS ORDERED: SENNOSIDES-DOCUSATE SODIUM 1 EACH TAB PO ONE ×2 (09:24)
[2024-05-15] MEDS ORDERED: polyethylene glycoL 3350 17 GM POWD.PACK ONE (09:24)
[2024-05-15] MEDS ORDERED: METOPROLOL SUCCINATE (ER) 50 MG TAB.ER.24H PO ONE ×2 (09:24→20:32)
[2024-05-15] MEDS ORDERED: SENNOSIDES 8.6 MG TAB ONE ×2 (09:34→20:32)
[2024-05-15 12:24] LABS: Glucose,Whole Blood 134 mg/dL (70-110)
[2024-05-15 17:40] LABS: Glucose,Whole Blood 177 mg/dL (70-110)
[2024-05-15] MEDS ORDERED: INSULIN ASPART (NovoLOG) 100 UNIT/ML VIAL SQ ONE (18:01)
[2024-05-15 19:57] LABS: Glucose,Whole Blood 146 mg/dL (70-110)
[2024-05-15] MEDS ORDERED: MONTELUKAST 10 MG TAB ONE (20:32)
[2024-05-15] MEDS ORDERED: allopurinoL 300 MG TAB PO ONE (20:32)
[2024-05-15] MEDS ORDERED: FLUoxetine HCL 20 MG CAP ONE (20:33)
[2024-05-15] MEDS ORDERED: SODIUM CHLORIDE 0.9% 50 ML BAG ONE (23:59)
[2024-05-15] MEDS ORDERED: MEMANTINE 5 MG TAB ONE (23:59)
[2024-05-15] MEDS ORDERED: DILTIAZEM CD 120 MG CAP.ER.24H PO ONE (23:59)
[2024-05-15] MEDS ORDERED: DAPTOmycin 500 MG VIAL ONE (23:59)
[2024-05-16] MEDS ORDERED: LEVOTHYROXINE 75 MCG TAB ONE (05:54)
[2024-05-16 07:18] LABS: Glucose,Whole Blood 169 mg/dL (70-110)
[2024-05-16] MEDS ORDERED: APIXABAN 5 MG TAB ONE ×2 (08:27→20:55)
[2024-05-16] MEDS ORDERED: METOPROLOL TARTRATE 50 MG TAB ONE (08:28)
[2024-05-16] MEDS ORDERED: MULTIVITAMINS, THERA 1 EACH TAB ONE (08:28)
[2024-05-16] MEDS ORDERED: INSULIN ASPART (NovoLOG) 100 UNIT/ML VIAL SQ ONE ×2 (08:29→13:16)
[2024-05-16] MEDS ORDERED: FUROSEMIDE 20 MG TAB ONE (08:29)
[2024-05-16 12:19] LABS: Glucose,Whole Blood 152 mg/dL (70-110)
[2024-05-16 17:26] LABS: Glucose,Whole Blood 141 mg/dL (70-110)
[2024-05-16 20:23] LABS: Glucose,Whole Blood 149 mg/dL (70-110)
[2024-05-16] MEDS ORDERED: allopurinoL 300 MG TAB PO ONE (20:54)
[2024-05-16] MEDS ORDERED: MONTELUKAST 10 MG TAB ONE (20:54)
[2024-05-16] MEDS ORDERED: FLUoxetine HCL 20 MG CAP ONE (20:55)
[2024-05-16] MEDS ORDERED: METOPROLOL SUCCINATE (ER) 50 MG TAB.ER.24H PO ONE (20:57)
[2024-05-16] MEDS ORDERED: SENNOSIDES 8.6 MG TAB ONE (20:57)
[2024-05-16] MEDS ORDERED: DAPTOmycin 500 MG VIAL ONE (21:59)
[2024-05-16] MEDS ORDERED: SODIUM CHLORIDE 0.9% 50 ML BAG IV ONE (21:59)
[2024-05-16] MEDS ORDERED: DILTIAZEM CD 120 MG CAP.ER.24H PO ONE (21:59)
[2024-05-16] MEDS ORDERED: MEMANTINE 5 MG TAB ONE (21:59)
[2024-05-17] MEDS ORDERED: LEVOTHYROXINE 75 MCG TAB ONE (05:56)
[2024-05-17 06:41] LABS: Glucose,Whole Blood 173 mg/dL (70-110)
[2024-05-17] MEDS ORDERED: INSULIN ASPART (NovoLOG) 100 UNIT/ML VIAL SQ ONE ×2 (06:41→20:33)
[2024-05-17] MEDS ORDERED: METOPROLOL TARTRATE 50 MG TAB ONE ×2 (08:54→08:59)
[2024-05-17] MEDS ORDERED: APIXABAN 5 MG TAB ONE ×2 (08:54→20:32)
[2024-05-17] MEDS ORDERED: FUROSEMIDE 20 MG TAB ONE (08:55)
[2024-05-17] MEDS ORDERED: MULTIVITAMINS, THERA 1 EACH TAB ONE (08:56)
[2024-05-17] MEDS ORDERED: SENNOSIDES-DOCUSATE SODIUM 1 EACH TAB PO ONE ×2 (09:00)
[2024-05-17] MEDS ORDERED: polyethylene glycoL 3350 17 GM POWD.PACK ONE (09:02)
[2024-05-17 12:00] LABS: Glucose,Whole Blood 121 mg/dL (70-110)
[2024-05-17] MEDS ORDERED: POTASSIUM CHLORIDE ER 20 MEQ TAB.ER PO ONE (13:13)
[2024-05-17 16:58] LABS: Glucose,Whole Blood 114 mg/dL (70-110)
[2024-05-17] MEDS ORDERED: MONTELUKAST 10 MG TAB ONE (20:31)
[2024-05-17] MEDS ORDERED: METOPROLOL SUCCINATE (ER) 50 MG TAB.ER.24H PO ONE (20:34)
[2024-05-17] MEDS ORDERED: allopurinoL 300 MG TAB PO ONE (20:34)
[2024-05-17] MEDS ORDERED: FLUoxetine HCL 20 MG CAP ONE (20:34)
[2024-05-18] MEDS ORDERED: LEVOTHYROXINE 75 MCG TAB ONE (06:16)
[2024-05-18] MEDS ORDERED: APIXABAN 5 MG TAB ONE ×2 (08:19→20:44)
[2024-05-18] MEDS ORDERED: METOPROLOL SUCCINATE (ER) 50 MG TAB.ER.24H PO ONE ×2 (08:19→20:52)
[2024-05-18] MEDS ORDERED: FUROSEMIDE 20 MG TAB ONE (08:19)
[2024-05-18] MEDS ORDERED: MULTIVITAMINS, THERA 1 EACH TAB ONE (08:20)
[2024-05-18] MEDS ORDERED: INSULIN ASPART (NovoLOG) 100 UNIT/ML VIAL SQ ONE (13:16)
[2024-05-18] MEDS ORDERED: allopurinoL 300 MG TAB PO ONE ×2 (20:43→20:57)
[2024-05-18] MEDS ORDERED: MONTELUKAST 10 MG TAB ONE (20:43)
[2024-05-18] MEDS ORDERED: FLUoxetine HCL 20 MG CAP ONE (20:44)
[2024-05-18] MEDS ORDERED: DAPTOmycin 500 MG VIAL ONE (21:59)
[2024-05-18] MEDS ORDERED: SODIUM CHLORIDE 0.9% 50 ML BAG ONE (21:59)
[2024-05-18] MEDS ORDERED: MEMANTINE 5 MG TAB ONE (21:59)
[2024-05-18] MEDS ORDERED: DILTIAZEM CD 120 MG CAP.ER.24H PO ONE (21:59)
[2024-05-19] MEDS ORDERED: LEVOTHYROXINE 75 MCG TAB ONE (05:30)
[2024-05-19] MEDS ORDERED: APIXABAN 5 MG TAB ONE (09:02)
[2024-05-19] MEDS ORDERED: MULTIVITAMINS, THERA 1 EACH TAB ONE (09:02)
[2024-05-19] MEDS ORDERED: METOPROLOL SUCCINATE (ER) 50 MG TAB.ER.24H PO ONE (09:02)
[2024-05-19 12:10] LABS: Glucose,Whole Blood 176 mg/dL (70-110)
[2024-05-19] MEDS ORDERED: INSULIN ASPART (NovoLOG) 100 UNIT/ML VIAL SQ ONE (12:43)
[2024-05-19] MEDS ORDERED: DAPTOmycin 500 MG VIAL ONE (15:00)
[2024-05-19] MEDS ORDERED: SODIUM CHLORIDE 0.9% 50 ML BAG ONE (15:00)
[2024-05-19] MEDS ORDERED: MEMANTINE 5 MG TAB ONE (15:00)
[2024-05-19] MEDS ORDERED: DILTIAZEM CD 120 MG CAP.ER.24H PO ONE (15:00)
--- NOTE | 2024-05-30 15:52 | PN ---
Date of service is 05/18/2024 PROGRESS NOTE LOCATION: [address] [place] [address]. REASON FOR FOLLOWUP VISIT: VRE urinary tract infection. INTERVAL HISTORY: The patient remains to be afebrile. The patient is breathing comfortably on room air. The patient denies having any chest pain, shortness of breath, or cough. The patient denies any nausea, no vomiting. No abdominal pain. No diarrhea has been reported. PHYSICAL EXAMINATION: VITAL SIGNS: Blood pressure is 115/76, pulse of 90, temperature 98.8. GENERAL DESCRIPTION: This is an elderly female up in the chair, in no distress. RESPIRATORY SYSTEM: Unlabored breathing, clear to auscultation anteriorly. HEART: S1 and S2, regular rate and rhythm. ABDOMEN: Soft, no tenderness. EXTREMITIES: No edema of the feet. DIAGNOSTIC IMPRESSION AND PLAN: The patient with vancomycin-resistant enterococcal urinary tract infection. The patient seems to have clinically responded to daptomycin, to continue to finish a 10- day course of therapy, and we will monitor clinical course closely. MMHEATHL / IJN: [id number] / JENI
--- NOTE | 2024-05-30 15:52 | PN ---
Date of service is 05/19/2024 PROGRESS NOTE LOCATION: [facility]. REASON FOR FOLLOWUP: VRE urinary tract infection. INTERVAL HISTORY: The patient was seen on rounds this morning. The patient was afebrile. She was breathing comfortably. No chest pain, shortness of breath, or cough. No nausea, vomiting. No abdominal pain or diarrhea. PHYSICAL EXAMINATION: VITAL SIGNS: Blood pressure is 127/85, pulse of 90, temperature 98. GENERAL DESCRIPTION: This is an elderly female up in the chair, in no distress. RESPIRATORY SYSTEM: Unlabored breathing. Clear to auscultation anteriorly. HEART: S1 and S2. Regular rate. ABDOMEN: Soft, no tenderness. LABORATORY DATA: No new labs have been obtained today. DIAGNOSTIC IMPRESSION AND PLAN: Patient with vancomycin-resistant enterococcus, urinary tract infection, clinically responded to daptomycin, to continue for about a week to finish a course of therapy and close outpatient followup. MMODL / IJN: [id number] / MTDD
[2024-06-04 08:58] LABS: HCT 45.9 % (34.0-46.0); HGB 14.1 gm/dL (11.4-16.0); MCH 31.5 pg (25.0-35.0); MCHC 30.7 g/dL (31.0-37.0); MCV 102.8 fL (80.0-100.0); Mean Platelet Volume 9.4; Platelet Count 404 k/uL (150-450); RBC 4.47 m/uL (3.80-5.40); RDW 15.4 % (11.5-15.5); WBC 5.5 k/uL (3.8-10.6)
[2024-06-04 09:00] LABS: Anion Gap 3 mmol/L; Blood Urea Nitrogen 18 mg/dL (7-17); Calcium 8.9 mg/dL (8.4-10.2); Carbon Dioxide 23 mmol/L (22-30); Chloride 107 mmol/L (98-107); Glucose 120 mg/dL (74-99); Potassium 3.8 mmol/L (3.5-5.1); Sodium 133 mmol/L (137-145)
[2024-06-04 09:01] LABS: ALT 87 U/L (4-34); AST 150 U/L (14-36); Albumin 2.7 g/dL (3.5-5.0); Albumin/Globulin Ratio 1.1; Alkaline Phosphatase 188 U/L (38-126); Globulin 2.4 g/dL; Total Bilirubin 0.7 mg/dL (0.2-1.3); Total Protein 5.1 g/dL (6.3-8.2)
== END 2024-05-19 16:12 | disposition home or self-care (01) | DRG 689 ==
LOC: EC 10:42 → OBSVTOIN 12:52 → 5NMEDONC 12:52 → UNDODISOB 05-19 16:12
PROVIDERS: ADMIT Student in an Organized Health Care Education/Training Program; ATTEND Student in an Organized Health Care Education/Training Program
PROC: 05HY33Z Insertion of Infusion Device into Upper Vein, Percutaneous Approach (ICD-10-PCS; principal; 2024-05-15 12:52)
DX: N30.91 Cystitis, unspecified with hematuria (principal); J96.01 Acute respiratory failure with hypoxia; I48.19 Other persistent atrial fibrillation; E87.1 Hypo-osmolality and hyponatremia; I13.0 Hypertensive heart and chronic kidney disease with heart failure and stage 1 through stage 4 chronic kidney disease, or unspecified chronic kidney disease; I50.22 Chronic systolic (congestive) heart failure; Z16.21 Resistance to vancomycin; N17.9 Acute kidney failure, unspecified; F03.93 Unspecified dementia, unspecified severity, with mood disturbance; F03.94 Unspecified dementia, unspecified severity, with anxiety; Z16.24 Resistance to multiple antibiotics; B95.2 Enterococcus as the cause of diseases classified elsewhere; E87.6 Hypokalemia; E11.22 Type 2 diabetes mellitus with diabetic chronic kidney disease; E11.65 Type 2 diabetes mellitus with hyperglycemia; R74.01 Elevation of levels of liver transaminase levels; E03.9 Hypothyroidism, unspecified; J45.909 Unspecified asthma, uncomplicated; N18.31 Chronic kidney disease, stage 3a; E78.5 Hyperlipidemia, unspecified; F32.A Depression, unspecified; F03.90 Unspecified dementia, unspecified severity, without behavioral disturbance, psychotic disturbance, mood disturbance, and anxiety; G47.33 Obstructive sleep apnea (adult) (pediatric); I25.5 Ischemic cardiomyopathy; R35.0 Frequency of micturition; F41.9 Anxiety disorder, unspecified; R19.7 Diarrhea, unspecified; M48.00 Spinal stenosis, site unspecified; E86.1 Hypovolemia; R39.15 Urgency of urination; K59.00 Constipation, unspecified; I25.10 Atherosclerotic heart disease of native coronary artery without angina pectoris; Z87.440 Personal history of urinary (tract) infections; Z95.5 Presence of coronary angioplasty implant and graft; Z98.84 Bariatric surgery status; Z79.01 Long term (current) use of anticoagulants; Z79.02 Long term (current) use of antithrombotics/antiplatelets; Z79.890 Hormone replacement therapy; Z79.899 Other long term (current) drug therapy; Z88.2 Allergy status to sulfonamides; Z82.49 Family history of ischemic heart disease and other diseases of the circulatory system; Z88.4 Allergy status to anesthetic agent; Z88.7 Allergy status to serum and vaccine; Z88.8 Allergy status to other drugs, medicaments and biological substances; Z96.643 Presence of artificial hip joint, bilateral; Z96.653 Presence of artificial knee joint, bilateral
CPT/HCPCS: 36410; 36415; 76770; 76937; 80048; 80053; 81001; 81003; 83036; 83605; 83735; 85025; 85027; 87077; 87086; 87186; 93005; 96361; 96365; 96366; 96367; 96375; 99285

== ENCOUNTER → 2024-06-11 | Outpatient (CLI) | payer MEDICARE ==
--- NOTE | 2024-06-11 12:15 | FL ---
EXAMINATION TYPE: FL UGI air w small bowel DATE OF EXAM: 06/11/2024 COMPARISON: None HISTORY: Nausea and vomiting TECHNIQUE: A single contrast UGI study is performed with small bowel follow through. A total of 1 m inute and 23 seconds of fluoroscopic time was utilized during procedure and 29 images obtained. Tota l dose area product (DAP) in uGy*m?, mGy*cm? (or similar): Not obtained. FINDINGS: Licensed Final [employer] image of the abdomen osteopenia with multilevel hypertrophic and degenerative change s. Postsurgical change of bilateral hip. Scoliosis. Bowel gas pattern nonspecific bibasilar consolida tion correlate for atelectasis or infiltrate. Retrocardiac nodule seen on the left. . Numerous tertiary contractions of esophagus. There is either small hiatal hernia or small gastric div erticulum. Would recommend correlation with EGD. Mild gastroesophageal reflux. No obstruction. No obvious filling defect within the stomach. Multiple duodenal diverticula. No diagnostic evidence o f duodenal ulcer. The small bowel study shows normal transit to the colon in less than one hour and 45 minutes. There is normal mucosal fold pattern throughout the small bowel. There is no evidence of any stricture or filling defect noted. The terminal ileum is unremarkable. IMPRESSION: 1. Tertiary contractions in esophagus with a eccentric protrusion of the distal esophagus may represe nt a small esophageal diverticulum favored over hiatal hernia. Recommend follow-up EGD. 2. Duodenal diverticulum. 3. Normal transit time of the small bowel with no evidence of obstruction. 4. Left lower lobe atelectasis favored over rate. There is a 1 cm left retrocardiac nodule was likely related to calcified lymph node or granuloma. Recommend follow-up chest x-ray.
== END | disposition home or self-care (01) ==
LOC: RADFLMAIN 07:53
PROVIDERS: ATTEND Internal Medicine Gastroenterology
DX: R11.0 Nausea
CPT/HCPCS: 74240; 74248

== ENCOUNTER 2024-06-17 07:00 | Emergency (ER) | payer MEDICARE ==
[2024-06-17 07:07] VITALS: RESP 18
--- NOTE | 2024-06-17 07:57 | ED ---
General Adult HPI - General Chief complaint: Urogenital Stated complaint: ABD Pain Time Seen by Provider: 06/17/24 07:14 Source: patient Mode of arrival: wheelchair - History of Present Illness Initial comments: Dictation was produced using Pipewise dictation software. please excuse any grammatical, word or spelling errors. Chief Complaint: 78-year-old female with urinary retention History of Present Illness: Patient 78-year-old debilitated female multiple comorbidities presents to the emergency department with family for urinary retention. Patient states she has not urinated since last night. Patient currently being treated for urinary tract infection. She was just discharged from [facility]. She has been battling chronic nausea and vomiting. She is scheduled to have outpatient scope. History of present illness obtained from family at the bedside. The ROS documented in this emergency department record has been reviewed and confirmed by me. Those systems with pertinent positive or negative responses have been documented in the HPI. All other systems are other negative and/or noncontributory. - Related Data Home Medications Medication Instructions Recorded Confirmed FLUoxetine HCL [PROzac] 60 mg PO HS 08/02/20 05/08/24 Multivitamins, Thera [Multivitamin 1 tab PO DAILY 08/02/20 05/08/24 (formulary)] Zafirlukast [Accolate] 20 mg PO BID 08/02/20 05/08/24 allopurinoL [Zyloprim] 300 mg PO HS 08/02/20 05/08/24 Butalb/Acetaminophen/Caffeine 1 cap PO Q4HR PRN 05/08/24 05/08/24 [Fioricet 50-300-40 mg Capsule] Levothyroxine Sodium [Synthroid] 75 mcg PO DAILY 05/08/24 05/08/24 Metoprolol Succinate (ER) [Toprol 100 mg PO DAILY 05/08/24 05/08/24 Xl] Nitrofurantoin Monohyd/M-Cryst 100 mg PO BID 05/08/24 05/08/24 [Macrobid] Nitroglycerin Sl Tabs [Nitrostat] 0.4 mg SL Q5M PRN 05/08/24 05/08/24 Ondansetron Odt [Zofran Odt] 8 mg PO Q8HR PRN 05/08/24 05/08/24 Ondansetron [Zofran] 4 mg PO Q6H PRN 05/08/24 05/08/24 Previous Rx's Medication Instructions Recorded Apixaban [Eliquis] 5 mg PO BID #60 tab 10/16/23 Furosemide [Lasix] 20 mg PO Q48H tab 03/24/24 Memantine [Namenda] 5 mg PO BID tab 03/24/24 Allergies Allergy/AdvReac Type Severity Reaction Status Date / Time sulfamethoxazole AdvReac Unknown STOMACH Verified 06/17/24 07:07 [From Bactrim] PAIN trimethoprim [From Bactrim] AdvReac Unknown STOMACH Verified 06/17/24 07:07 PAIN spironolactone AdvReac Unknown Verified 06/17/24 07:07 [From Aldactone] HORSE SERUM TETANAS Allergy Severe Anaphylaxis Uncoded 06/17/24 07:07 Novacaine Allergy Anaphylaxis Uncoded 06/17/24 07:07 Review of Systems ROS Statement: Those systems with pertinent positive or pertinent negative responses have been documented in the HPI. ROS Other: All systems not noted in ROS Statement are negative. Past Medical History Past Medical History: Atrial Fibrillation, Diabetes Mellitus, Hyperlipidemia, Hypertension Additional Past Medical History / Comment(s): Sleep Apnea (no machine not working), hx of septicemia, neck, back and shoulder pain, uses cane and rolling walker prn, gout . pt states recent diagnosis of DM 2. History of Any Multi-Drug Resistant Organisms: None Reported Past Surgical History: Adenoidectomy, Bariatric Surgery, Cholecystectomy, Hernia Repair, Joint Replacement, Tonsillectomy Additional Past Surgical History / Comment(s): GASTRIC SLEEVE (2010- DR MENDEZ), CARPAL TUNNEL MARILYN, CATARACTS, INGUINAL HERNIA, MARILYN TOTAL KNEES, Bilateral TOTAL HIPs, injections in back for spinal stenosis and cervical injections., pain clinic procedures. Past Anesthesia/Blood Transfusion Reactions: No Reported Reaction, Motion Sickness Past Psychological History: Anxiety, Depression Smoking Status: Never smoker Past Alcohol Use History: None Reported Past Drug Use History: None Reported - Past Family History Mother Additional Family Medical History / Comment(s): heart disease Father Family Medical History: Coronary Artery Disease (CAD), CVA/TIA Additional Family Medical History / Comment(s): heart disease General Exam - General Exam Comments Initial Comments: PHYSICAL EXAM: General Impression: Alert and oriented x3, not in acute distress HEENT: Normocephalic atraumatic, extra-ocular movements intact, pupils equal and reactive to light bilaterally, mucous membranes moist. Cardiovascular: Heart regular rate and rhythm Chest: Able to complete full sentences, no retractions, no tachypnea Abdomen: abdomen soft, non-tender, non-distended, no organomegaly Musculoskeletal: Pulses present and equal in all extremities, no peripheral edema Motor: no focal deficits noted Neurological: CN II-XII grossly intact, no focal motor or sensory deficits noted Skin: Intact with no visualized rashes Psych: Normal affect and mood Course Vital Signs 06/17/24 07:02 Temperature 97.5 F L Pulse Rate 106 H Respiratory 18 Rate Blood Pressure 131/80 O2 Sat by Pulse 96 Oximetry Medical Decision Making - Medical Decision Making Was pt. sent in by a medical professional or institution (, [facility], [facility], urgent care, hospital, or alf...) When possible be specific @ -No Did you speak to anyone other than the patient for history (EMS, parent, family, police, friend...)? What history was obtained from this source @ -See above Did you review nursing and triage notes (agree or disagree)? Why? @ -I reviewed and agree with nursing and triage notes Were old charts reviewed (outside hosp., previous admission, EMS record, old EKG, old radiological studies, urgent care reports/EKG's, alf records)? Report findings @ -No old charts were reviewed Differential Diagnosis (chest pain, altered mental status, abdominal pain women, abdominal pain men, vaginal bleeding, musculoskeletal, weakness, fever, dyspnea, syncope, headache, dizziness, GI bleed, back pain, seizure, CVA, palpatations, mental health)? @ -UTI, urethritis, pyelonephritis EKG interpreted by me (3pts min.). @ -None done X-rays interpreted by me (1pt min.). @ -None done CT interpreted by me (1pt min.). @ -None done U/S interpreted by me (1pt. min.). @ -None done What testing was considered but not performed or refused? (CT, X-rays, U/S, labs)? Why? @ -None What meds were considered but not given or refused? Why? @ -None Was smoking cessation discussed for >3mins.? @ -No Were there social determinants of health that impacted care today? How? (Homelessness, low income, unemployed, alcoholism, drug addiction, transportation, low edu. Level, literacy, decrease access to med. care, fdc, rehab)? @ -No Was there de-escalation of care discussed even if they declined (Discuss DNR or withdrawal of care, Hospice)? DNR status @ -No What co-morbidities impacted this encounter? (DM, HTN, Smoking, COPD, CAD, Cancer, CVA, ARF, Chemo, Hep., AIDS, mental health diagnosis, sleep apnea, morbid obesity)? @ -See above Was patient admitted / discharged? Hospital course, mention meds given and route, prescriptions, significant lab abnormalities, going to OR and other pertinent info. @ -78-year-old female with multiple comorbidities presents to the emergency department for urinary retention. Vital signs stable. Patient in no acute distress. Bladder scan shows 450 cc of retained urine. Navarrete catheter was placed. Patient reported some relief. Patient currently dealing with chronic dizziness and vomiting. Family requests referral to ENT. Patient also given referral to urology. Urinalysis shows 96 white blood cells in the urine with nitrite positivity. Suspect E. coli UTI. Medication review with family shows that patient currently on cefuroxime previous microbiology results shows sensitivity to all cephalosporins. Did you discuss the management of the patient with other professionals (professionals i.e. , PA, [employer], lab, RT, psych nurse, protective services social worker, supervisor asphalt paving, teacher, airfield engineer officer, telehealth case manager)? Give summary @ -No Was critical care preformed (if so, how long)? @ -No Undiagnosed new problem with uncertain prognosis? @ -No Drug Therapy requiring intensive monitoring for toxicity (Heparin, Nitro, Insulin, Cardizem)? @ -No Were any procedures done? @ -No Diagnosis/symptom? Acute, or Chronic, or Acute on Chronic? Uncomplicated (without systemic symptoms) or Complicated (systemic symptoms)? @ -Urinary retention Side effects of treatment? @ -No Exacerbation, Progression, or Severe Exacerbation? @ -No Poses a threat to life or bodily function? How? (Chest pain, [place], [place], pneumonia, PE, COPD, DKA, ARF, appy, cholecystitis, CVA, Diverticulitis, Homicidal, Suicidal, threat to staff... and all critical care pts) @ -yes - Lab Data Lab Results 06/17/24 Range/Units 07:38 Urine Color Yellow Urine Appearance Cloudy H (Clear) Urine pH 6.0 (5.0-8.0) Ur Specific Harrington 1.013 (1.001-1.035) Urine Protein Trace H (Negative) Urine Glucose (UA) Negative (Negative) Urine Ketones Negative (Negative) Urine Blood Negative (Negative) Urine Nitrite Positive H (Negative) Urine Bilirubin Negative (Negative) Urine Urobilinogen <2.0 (<2.0) mg/dL Ur Leukocyte Esterase Large H (Negative) Urine RBC 2 (0-5) /hpf Urine WBC 96 H (0-5) /hpf Ur Squamous Epith Cells <1 (0-4) /hpf Urine Bacteria Occasional H (None) /hpf Urine Mucus Rare H (None) /hpf Disposition Clinical Impression: Urinary retention Disposition: HOME SELF-CARE Condition: Good Instructions (If sedation given, give patient instructions): Acute Urinary Retention in Women (ED) Is patient prescribed a controlled substance at d/c from ED?: No Referrals: Bals Williamson DO [Primary Care Provider] - 1-2 days Chase Ramirez MD [STAFF PHYSICIAN] - 1-2 days Bernabe Rodriguez MD [STAFF PHYSICIAN] - 1-2 days Time of Disposition: 08:14
[2024-06-17 08:06] LABS: Appearance,Urine Cloudy (Clear); Bacteria,Urine Occasional /hpf; Bilirubin,Urine Negative (Negative); Blood,Urine Negative (Negative); Color,Urine Yellow; Glucose,Urine (UA) Negative (Negative); Ketones,Urine Negative (Negative); Leukocyte Esterase,Urine Large (Negative); Mucus,Urine Rare /hpf; Nitrite,Urine Positive (Negative); Protein,Urine Trace (Negative); RBC,Urine 2 /hpf (0-5); Specific Gravity,Urine 1.013 (1.001-1.035); Squamous Epithelial Cell,Urine <1 /hpf (0-4); Urobilinogen,Urine <2.0 mg/dL (<2.0); WBC,Urine 96 /hpf (0-5)
[2024-06-17 09:07] VITALS: BP 128/82; PULSE 95; TEMP 97.8
== END 2024-06-17 09:07 | disposition home or self-care (01) ==
LOC: EC 07:00
CPT/HCPCS: 51702; 51798; 81001; 99284

== ENCOUNTER → 2024-07-01 | Day surgery (SDC) | payer MEDICARE ==
[~2024-07-01] MED LIST changes: -LACTATED RINGERS 1,000 ML IV SCH; +PROPOFOL 10 MG/ML 20 ML VIAL IV ONE; -SODIUM CHLORIDE 0.9% 1,000 ML IV SCH
[2024-07-01] MEDS: LACTATED RINGERS 1,000 ML IV SCH (10:37)
[2024-07-01 10:39] LABS: Glucose,Whole Blood 113 mg/dL (70-110)
[2024-07-01] MEDS: IV FLUID CONTINUATION 1,000 ML IV ONE (10:49)
[2024-07-01 10:53] VITALS: RESP 16; TEMP 97
--- NOTE | 2024-07-01 11:21 | P.PCN ---
Date of Procedure: 07/01/24 Procedure(s) Performed: BRIEF HISTORY: Patient is a 78-year-old, pleasant, white female scheduled for an upper endoscopy as a part evaluation of epigastric pain associated intermittent nausea vomiting for the last 6 months duration.. PROCEDURE PERFORMED: Esophagogastroduodenoscopy with biopsy. PREOPERATIVE DIAGNOSIS: Chronic intermittent nausea vomiting of 6 months duration. IV sedation per anesthesia. PROCEDURE: After informed consent was obtained, the patient was brought into the endoscopy unit. IV sedation was administered by Anesthesia under continuous monitoring. Initially the Olympus GIF-140 video endoscope was inserted into the mouth. Esophagus intubated without any difficulty. It was gradually advanced into the stomach and duodenum and carefully examined. The bulb and the second part of the duodenum appeared normal. These were done from the duodenum to evaluate for celiac disease. The scope at this time was withdrawn to the stomach, adequately insufflated with air, and upon careful examination, mucosa of the antrum mild diffuse gastritis and biopsies were done from this area. There was evidence of gastric sleeve surgery in the mucosa in the gastric sleeve also had erythema consistent with gastritis.The scope was then withdrawn into the esophagus. Small hiatal hernia noted. The GE junction was located at 39 cm from the incisors. The esophagus appeared normal. There were no erosions or ulcerations seen biopsies were done from the distal esophagus and the patient to lerated the procedure well. IMPRESSION: 1. Mild diffuse gastritis. 2. Evidence of gastric sleeve surgery with gastritis noted 3. Small hiatal hernia. RECOMMENDATIONS: The findings of this examination were discussed with the patient as well as her family. She was advised to follow-up with the biopsy results. Continue with pantoprazole 40 mg daily and follow antireflux measures.
[2024-07-01 11:39] VITALS: BP 126/85; PULSE 118
== END ==
LOC: ORWHC2ENDO 09:45
PROVIDERS: ATTEND Internal Medicine Gastroenterology
DX: R11.0 Nausea
CPT/HCPCS: 43239; 88305

== ENCOUNTER → 2024-07-04 | Outpatient (CLI) | payer MEDICARE | END | disposition home or self-care (01) | LOC: LABWHC1 12:51 | PROVIDERS: ATTEND Orthopaedic Surgery | DX: Z47.1 Aftercare following joint replacement surgery (principal); M16.11 Unilateral primary osteoarthritis, right hip; L76.34 Postprocedural seroma of skin and subcutaneous tissue following other procedure; Z96.642 Presence of left artificial hip joint | CPT/HCPCS: 36415; 85379; 85652; 86140 ==

== ENCOUNTER 2024-08-05 12:01 | Emergency (ER) | payer MEDICARE ==
[2024-08-05 12:15] VITALS: TEMP 97.2
[2024-08-05 13:24] VITALS: RESP 20
--- NOTE | 2024-08-05 13:33 | ED ---
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 Patient states she was getting up from her chair onto a commode when she lost her balance and fell backwards onto her left side, hitting the back of her head. Denies loss of consciousness. States this was a mechanical fall, denies syncope or symptoms surrounding the fall. Patient is on Eliquis for atrial fibrillation. Patient is also complaining of right hand pain as she fell on her outstretched hand. No other injuries. Denies chest pain, shortness of breath, headache, vision changes. Family is requesting UA today as well as patient gets frequent UTIs. - Related Data Home Medications Medication Instructions Recorded Confirmed FLUoxetine HCL [PROzac] 60 mg PO HS 08/02/20 08/05/24 Multivitamins, Thera [Multivitamin 1 tab PO DAILY 08/02/20 08/05/24 (formulary)] Zafirlukast [Accolate] 20 mg PO BID 08/02/20 08/05/24 allopurinoL [Zyloprim] 300 mg PO HS 08/02/20 08/05/24 Levothyroxine Sodium [Synthroid] 75 mcg PO DAILY 05/08/24 08/05/24 Metoprolol Succinate (ER) [Toprol 100 mg PO DAILY 05/08/24 08/05/24 Xl] Nitroglycerin Sl Tabs [Nitrostat] 0.4 mg SL Q5M PRN 05/08/24 08/05/24 Bismuth Subsalicylate 524 mg PO Q4H PRN 06/25/24 08/05/24 [Pepto-Bismol] Clotrimazole/Betameth Cream 1 applic TOPICAL DAILY PRN 06/25/24 08/05/24 [Lotrisone] Cranberry 1 dose PO DAILY@1200 06/25/24 08/05/24 L.acidoph,Paracasei, B.lactis 1 cap PO DAILY@1200 06/25/24 08/05/24 [Probiotic] Pantoprazole Sodium [Protonix] 40 mg PO BID 06/25/24 08/05/24 Promethazine HCl 12.5 mg PO AC-TID 06/25/24 08/05/24 metFORMIN HCL [Glucophage] 500 mg PO BID 06/25/24 08/05/24 Calcium Carbonate [Tums] 500 mg PO QID PRN 08/05/24 08/05/24 Estradiol Cream [Estrace Cream 1 gm VAGINAL DIRECTED 08/05/24 08/05/24 0.01%] Methenamine Hippurate 1 gm PO BID 08/05/24 08/05/24 Metoprolol Succinate (ER) [Toprol 50 mg PO HS 08/05/24 08/05/24 Xl] Ondansetron Odt [Zofran Odt] 8 mg PO Q8HR PRN 08/05/24 08/05/24 Previous Rx's Medication Instructions Recorded Apixaban [Eliquis] 5 mg PO BID #60 tab 10/16/23 Furosemide [Lasix] 20 mg PO Q48H tab 03/24/24 Memantine [Namenda] 5 mg PO BID tab 03/24/24 Cephalexin [Keflex] 500 mg PO Q12H 7 Days #14 cap 08/05/24 Allergies/Adverse reactions: Allergies Allergy/AdvReac Type Severity Reaction Status Date / Time sulfamethoxazole AdvReac Unknown STOMACH Verified 08/05/24 14:20 [From Bactrim] PAIN trimethoprim [From Bactrim] AdvReac Unknown STOMACH Verified 08/05/24 14:20 PAIN spironolactone AdvReac Unknown Verified 08/05/24 14:20 [From Aldactone] HORSE SERUM TETANAS Allergy Severe Anaphylaxis Uncoded 08/05/24 12:15 Novacaine Allergy Anaphylaxis Uncoded 08/05/24 12:15 Review of Systems ROS Statement: Those systems with pertinent positive or pertinent negative responses have been documented in the HPI. ROS Other: All systems not noted in ROS Statement are negative. Past Medical History Past Medical History: Atrial Fibrillation, Diabetes Mellitus, Hyperlipidemia, Hypertension Additional Past Medical History / Comment(s): Sleep Apnea (no machine not working), hx of septicemia, neck, back and shoulder pain, uses cane and rolling walker prn, gout . pt states recent diagnosis of DM 2. History of Any Multi-Drug Resistant Organisms: None Reported Past Surgical History: Adenoidectomy, Bariatric Surgery, Cholecystectomy, Heart Catheterization With Stent, Hernia Repair, Joint Replacement, Tonsillectomy Additional Past Surgical History / Comment(s): GASTRIC SLEEVE (2011- DR MENDEZ), CARPAL TUNNEL MARILYN, CATARACTS, INGUINAL HERNIA, MARILYN TOTAL KNEES, Bilateral TOTAL HIPs, injections in back for spinal stenosis and cervical injections., pain clinic procedures. Past Anesthesia/Blood Transfusion Reactions: No Reported Reaction, Motion Sickness Past Psychological History: Anxiety, Depression Smoking Status: Never smoker Past Alcohol Use History: None Reported Past Drug Use History: None Reported - Past Family History Mother Additional Family Medical History / Comment(s): heart disease Father Family Medical History: Coronary Artery Disease (CAD), CVA/TIA Additional Family Medical History / Comment(s): heart disease General Exam Limitations: no limitations Head exam: Present: normocephalic, other (Small hematoma present on occipital portion of scalp) Eye exam: Present: normal appearance, PERRL, EOMI. Absent: scleral icterus, conjunctival injection, periorbital swelling ENT exam: Present: normal exam, mucous membranes moist Neck exam: Present: normal inspection. Absent: tenderness, meningismus, lymphadenopathy Respiratory exam: Present: normal lung sounds bilaterally. Absent: respiratory distress, wheezes, rales, rhonchi, stridor Cardiovascular Exam: Present: regular rate, normal rhythm, normal heart sounds. Absent: systolic murmur, diastolic murmur, rubs, gallop, clicks GI/Abdominal exam: Present: soft, normal bowel sounds. Absent: distended, tenderness, guarding, rebound, rigid Extremities exam: Present: full ROM, normal capillary refill. Absent: normal inspection (Contusion and edema present on dorsal aspect of left hand with mild TTP.), tenderness, pedal edema, joint swelling, calf tenderness Back exam: Present: normal inspection Neurological exam: Present: alert, oriented X3, CN II-XII intact Psychiatric exam: Present: normal affect, normal mood Skin exam: Present: warm, dry, intact, normal color. Absent: rash Course Vital Signs 08/05/24 08/05/24 08/05/24 12:07 12:38 14:15 Temperature 97.2 F L Pulse Rate 109 H 110 H 68 Respiratory 18 20 20 Rate Blood Pressure 126/86 125/81 130/68 O2 Sat by Pulse 98 100 98 Oximetry 08/05/24 16:15 Temperature Pulse Rate 65 Respiratory 20 Rate Blood Pressure 145/68 O2 Sat by Pulse 98 Oximetry Medical Decision Making - Medical Decision Making Was pt. sent in by a medical professional or institution ([facility] Rodriguez, CHIMNEY BUILDER HELPER, urgent care, hospital, or fpc...) When possible be specific @ -No Did you speak to anyone other than the patient for history (EMS, parent, family, police, friend...)? What history was obtained from this source @ -Caregiver and supplemented history Did you review nursing and triage notes (agree or disagree)? Why? @ -I reviewed and agree with nursing and triage notes Were old charts reviewed (outside hosp., previous admission, EMS record, old EKG, old radiological studies, urgent care reports/EKG's, fpc records)? Report findings @ -No old charts were reviewed Differential Diagnosis (chest pain, altered mental status, abdominal pain women, abdominal pain men, vaginal bleeding, weakness, fever, dyspnea, syncope, headache, dizziness, GI bleed, back pain, seizure, CVA, palpatations, mental health, musculoskeletal)? @ -Differential Musculoskeletal Concussion, intracranial bleed, skull fracture, UTI, muscular strain, contusion, ligament sprain, fracture, arthritis, septic arthritis, bursitis, cellulitis, muscle spasm, nerve compression, DVT, arterial occlusion, herpes zoster, electrolyte abnormality, tumor.... This is not meant to be in all inclusive list EKG interpreted by me (3pts min.). @ -As above X-rays interpreted by me (1pt min.). @ -X-ray left hand revealed severe osteoarthritis, no acute fracture CT interpreted by me (1pt min.). @ -CT head and neck revealed no acute process U/S interpreted by me (1pt. min.). @ -None done What testing was considered but not performed or refused? (CT, X-rays, U/S, labs)? Why? @ -Considered lab work and and further workup however patient and family feel that this fall was mechanical and would not like further workup at this time What meds were considered but not given or refused? Why? @ -None Did you discuss the management of the patient with other professionals (professionals i.e. ANA LAURA Rodriguez, CHIMNEY BUILDER HELPER, lab, RT, psych nurse, social media analyst, k9 handler, teacher, chief strategy officer, case mgr)? Give summary @ -No Was smoking cessation discussed for >3mins.? @ -No Was critical care preformed (if so, how long)? @ -No Were there social determinants of health that impacted care today? How? (Homelessness, low income, unemployed, alcoholism, drug addiction, transportation, low edu. Level, literacy, decrease access to med. care, care home, rehab)? @ -No Was there de-escalation of care discussed even if they declined (Discuss DNR or withdrawal of care, Hospice)? DNR status @ -No What co-morbidities impacted this encounter? (DM, HTN, Smoking, COPD, CAD, Cancer, CVA, ARF, Chemo, Hep., AIDS, mental health diagnosis, sleep apnea, morbid obesity)? @ -None Was patient admitted / discharged? Hospital course, mention meds given and route, prescriptions, significant lab abnormalities, going to OR and other pertinent info. @ -Discharged. This is a 78-year-old female presenting for mechanical fall last night with head injury. Patient is on Eliquis for atrial fibrillation. Denies chest pain, shortness of breath now or at time of fall. Does endorse left hand pain since the fall. Neurovascularly intact. EKG reveals atrial fibrillation. CT head and neck revealed no acute process. X-ray left hand reveals severe osteoarthritis, no acute fracture. Urinalysis obtained significant for UTI. Discussed results with patient, caregiver, and . Will treat with Keflex for UTI. Advise close follow-up with PCP for reevaluation next week. Return precautions discussed, patient and family agreeable to plan. Case was discussed with my ED attending Dr. Pearl. Patient discharged in stable condition. Undiagnosed new problem with uncertain prognosis? @ -No Drug Therapy requiring intensive monitoring for toxicity (Heparin, Nitro, Insulin, Cardizem)? @ -No Were any procedures done? @ -No Diagnosis/symptom? @ -Urinary tract infection, fall with head injury Acute, or Chronic, or Acute on Chronic? @ -Acute Uncomplicated (without systemic symptoms) or Complicated (systemic symptoms)? @ -Uncomplicated Side effects of treatment? @ -No Exacerbation, Progression, or Severe Exacerbation? @ -No Poses a threat to life or bodily function? How? (Chest pain, [place], [place], pneumonia, PE, COPD, DKA, ARF, appy, cholecystitis, CVA, Diverticulitis, Homicidal, Suicidal, threat to staff... and all critical care pts) @ -No - Lab Data Lab Results 08/05/24 Range/Units 14:49 Urine Color Colorless Urine Appearance Cloudy H (Clear) Urine pH 8.0 (5.0-8.0) Ur Specific [place] 1.010 (1.001-1.035) Urine Protein Trace H (Negative) Urine Glucose (UA) Negative (Negative) Urine Ketones Negative (Negative) Urine Blood Trace H (Negative) Urine Nitrite Negative (Negative) Urine Bilirubin Negative (Negative) Urine Urobilinogen <2.0 (<2.0) mg/dL Ur Leukocyte Esterase Large H (Negative) Urine RBC 2 (0-5) /hpf Urine WBC 76 H (0-5) /hpf Ur Squamous Epith Cells 5 H (0-4) /hpf Urine Bacteria Rare H (None) /hpf Hyaline Casts 1 (0-2) /lpf Urine Mucus Rare H (None) /hpf - EKG Data -: EKG Interpreted by Me EKG Comments: EKG reveals atrial fibrillation. Ventricular rate 102 bpm, RI interval not calculated, QRS duration 96, QT/QTc 379/438 Disposition Clinical Impression: Urinary tract infection, Fall Disposition: HOME SELF-CARE Condition: Stable Instructions (If sedation given, give patient instructions): Urinary Tract Infection in Older Adults (ED) Additional Instructions: Take Keflex twice daily for 7 days. Hydrate aggressively. Follow-up with PCP next week for reevaluation. Please return to the Emergency Department if symptoms worsen or any other concerns. Prescriptions: Cephalexin [Keflex] 500 mg PO Q12H 7 Days #14 cap Is patient prescribed a controlled substance at d/c from ED?: No Referrals: Blas Williamosn DO [Primary Care Provider] - 1-2 days Time of Disposition: 16:02
--- NOTE | 2024-08-05 14:35 | XR ---
EXAMINATION TYPE: XR hand complete LT DATE OF EXAM: 08/05/2024 Comparison: None Clinical History: 78-year-old female pain and bruising, swelling across the second through fourth MCP joints after fall, left hand injury Findings: There is soft tissue swelling overlying the knuckles. Severe degenerative change third MCP joint with joint space narrowing and prominent marginal spurring. Moderate degenerative change fourth MCP joint with joint space narrowing. Diffuse osteopenia. Severe degenerative change first CMC joint and moder ate at the triscaphe joint. At least moderate degenerative change distal radial ulnar joint. No acute fracture is seen. 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 Soft tissue swelling overlying the knuckles. S evere degenerative change third MCP joint and moderate at the fourth MCP joint. No acute fracture see n. [facility], , 08/05/2024 2:33 PM
--- NOTE | 2024-08-05 15:11 | CT ---
EXAMINATION TYPE: CT brain andrez gipson DATE OF EXAM: 08/05/2024 COMPARISON: None HISTORY: Pain, fall CT DLP: 1332.6 mGycm, Automated exposure control for dose reduction was used. CONTRAST: Patient injected with 0 mL of Isovue 300. CT of the brain is performed utilizing 3 mm thick sections through the posterior fossa and 3 mm thick sections through the remaining calvarium. Study is performed within 24 hours of arrival to the hospital. No abnormal hyperdensity is present to suggest an acute intracranial hemorrhage. No mass lesion is evident. No acute infarcts are evident. Periventricular white matter hypodensity is present, likely on the ba sis of chronic white matter ischemic change. Ventricles and sulci are appropriate for the patient age. Paranasal sinuses and mastoid air cells within the [id number] are clear. There is soft tissue swelling over the left posterior parietal-occipital vertex. IMPRESSIONS: 1. No acute intracranial process. Follow-up MRI can be performed as clinically indicated. CT cervical spine. COMPARISON: None CT of the cervical spine is performed in the axial plane at 2 mm thick sections. Reconstructed image s in the coronal, and sagittal plane are reviewed on the computer. No acute fractures are evident. Vertebral body alignment is normal. There is narrowing of disc height at C4-5 C5-6 C6-7. Vacuum disc phenomenon is present at this level. Posterior endplate spurring is present at these levels. Anterior vertebral body spurring is present C4 through C7. No focal disc herniation or significant disc bulge. No spinal canal stenosis. Neural foramen are patent. Prevertebral space is normal. Vertebral body heights are preserved. No spinal canal stenosis is evident. C4-5 foraminal narrowing is present bilaterally at C5-6 foraminal narrowing is present bilaterally Small bilateral pleural effusions are present. Correlate for trauma versus other etiology IMPRESSION: 1. No acute osseous abnormality cervical spine. 2. Foraminal narrowing C4-5 and C5-6. 3. Chronic degenerative disc changes. 4. Small bilateral pleural fluid collections. In trauma situation, hemorrhage should be considered wi thin the differential. [facility], Workstation: [facility], 08/05/2024 3:09 PM
[2024-08-05 15:15] LABS: Appearance,Urine Cloudy (Clear); Bacteria,Urine Rare /hpf; Bilirubin,Urine Negative (Negative); Blood,Urine Trace (Negative); Color,Urine Colorless; Glucose,Urine (UA) Negative (Negative); Hyaline Casts,Urine 1 /lpf (0-2); Ketones,Urine Negative (Negative); Leukocyte Esterase,Urine Large (Negative); Mucus,Urine Rare /hpf; Nitrite,Urine Negative (Negative); Protein,Urine Trace (Negative); RBC,Urine 2 /hpf (0-5); Squamous Epithelial Cell,Urine 5 /hpf (0-4); Urobilinogen,Urine <2.0 mg/dL (<2.0); WBC,Urine 76 /hpf (0-5)
[2024-08-05] MEDS: CEPHALEXIN 500 MG CAP PO STA (16:12)
[2024-08-05 16:16] VITALS: BP 145/68; PULSE 65
== END 2024-08-05 16:16 | disposition home or self-care (01) ==
LOC: EC 12:01
CPT/HCPCS: 70450; 72125; 81001; 99284

== ENCOUNTER 2024-08-16 09:14 | Inpatient (IN) | payer MEDICARE ==
[2024-08-16 13:06] LABS: Appearance,Urine Cloudy (Clear); Bacteria,Urine Rare /hpf; Bilirubin,Urine Negative (Negative); Blood,Urine Trace (Negative); Budding Yeast,Urine Few /hpf; Color,Urine Light Yellow; Glucose,Urine (UA) Negative (Negative); Hyphae Yeast, Urine Rare /hpf; Ketones,Urine Negative (Negative); Leukocyte Esterase,Urine Large (Negative); Nitrite,Urine Negative (Negative); PH, Urine 5.5 (5.0-8.0); Protein,Urine 1+ (Negative); RBC,Urine 3 /hpf (0-5); Specific Gravity,Urine 1.014 (1.001-1.035); Squamous Epithelial Cell,Urine 1 /hpf (0-4); Urobilinogen,Urine <2.0 mg/dL (<2.0); WBC,Urine 161 /hpf (0-5)
[2024-08-16] MEDS: SODIUM CHLORIDE 0.9% 500 ML 500 ML IV ONE ×2 (13:15→14:52)
[2024-08-16 13:40] LABS: Anisocytosis Slight; Basophils # (A) 0.1 k/uL (0-0.2); Basophils % (A) 1 %; Eosinophils # (A) 0.1 k/uL (0-0.7); Eosinophils % (A) 1 %; HCT 40.7 % (34.0-46.0); HGB 12.5 gm/dL (11.4-16.0); Hypochromasia Moderate; Lymphocytes # (A) 1.4 k/uL (1.0-4.8); Lymphocytes % (A) 13 %; MCH 31.9 pg (25.0-35.0); MCHC 30.8 g/dL (31.0-37.0); MCV 103.7 fL (80.0-100.0); Macrocytosis Moderate; Mean Platelet Volume 8.9; Monocytes # (A) 0.5 k/uL (0-1.0); Monocytes % (A) 5 %; Neutrophils # (A) 8.7 k/uL (1.3-7.7); Neutrophils % (A) 80 %; Platelet Count 311 k/uL (150-450); RBC 3.92 m/uL (3.80-5.40); RDW 16.6 % (11.5-15.5); WBC 10.9 k/uL (3.8-10.6)
[2024-08-16 13:50] LABS: ALT 54 U/L (4-34); AST 42 U/L (14-36); African American GFR (CKD) 48 (>60 ml/min/1.73 sqM); Albumin 4.1 g/dL (3.5-5.0); Alkaline Phosphatase 124 U/L (38-126); Anion Gap 12 mmol/L; Blood Urea Nitrogen 32 mg/dL (7-17); Calcium 9.5 mg/dL (8.4-10.2); Carbon Dioxide 22 mmol/L (22-30); Chloride 108 mmol/L (98-107); Glucose 151 mg/dL (74-99); Non-African American GFR(CKD) 42 (>60 ml/min/1.73 sqM); Potassium 3.4 mmol/L (3.5-5.1); Sodium 142 mmol/L (137-145); Total Bilirubin 1.3 mg/dL (0.2-1.3); Total Protein 6.8 g/dL (6.3-8.2)
--- NOTE | 2024-08-16 14:21 | XR ---
EXAMINATION TYPE: XR chest 2V DATE OF EXAM: 08/16/2024 2:14 PM COMPARISON: Previous chest radiographs, most recently dated 03/26/2024. CLINICAL INDICATION: Female, 78 years old with history of altered mental status; MERGED WITH [facility] TECHNIQUE: XR chest 2V Frontal and lateral views of the chest. FINDINGS: Cardiomegaly, similar to prior studies. Patchy bilateral pleural-parenchymal opacities. Small bilateral pleural effusions. No appreciable pne umothorax. Degenerative arthritis of the thoracic spine and bilateral shoulders. IMPRESSION: Bilateral patchy pleural and parenchymal opacities with small effusions suggesting either pulmonary e heavenly versus multifocal pneumonia. [facility], Workstation: [facility], 08/16/2024 2:18 PM
--- NOTE | 2024-08-16 14:46 | ED ---
General Adult HPI - General Chief complaint: Urogenital Stated complaint: UTI Time Seen by Provider: 08/16/24 09:30 Source: patient, family, RN notes reviewed, old records reviewed Mode of arrival: wheelchair Limitations: no limitations - History of Present Illness Initial comments: This is a 78-year-old female who I saw in the waiting room. She is becoming more more altered and weak since she has been diagnosed with urinary tract infection. Family states that they do not know what antibiotic she was on but does not appear to be working. Patient herself states she just feels extremely tired and fatigued. Patient does states she tries to urinate but cannot go often. Patient denies any chest pain difficulty breathing shortness of breath. Patient has any cough. Patient has any known fever. - Related Data Home Medications Medication Instructions Recorded Confirmed FLUoxetine HCL [PROzac] 60 mg PO HS 08/02/20 08/05/24 Multivitamins, Thera [Multivitamin 1 tab PO DAILY 08/02/20 08/05/24 (formulary)] Zafirlukast [Accolate] 20 mg PO BID 08/02/20 08/05/24 allopurinoL [Zyloprim] 300 mg PO HS 08/02/20 08/05/24 Levothyroxine Sodium [Synthroid] 75 mcg PO DAILY 05/08/24 08/05/24 Metoprolol Succinate (ER) [Toprol 100 mg PO DAILY 05/08/24 08/05/24 Xl] Nitroglycerin Sl Tabs [Nitrostat] 0.4 mg SL Q5M PRN 05/08/24 08/05/24 Bismuth Subsalicylate 524 mg PO Q4H PRN 06/25/24 08/05/24 [Pepto-Bismol] Clotrimazole/Betameth Cream 1 applic TOPICAL DAILY PRN 06/25/24 08/05/24 [Lotrisone] Cranberry 1 dose PO DAILY@1200 06/25/24 08/05/24 L.acidoph,Paracasei, B.lactis 1 cap PO DAILY@1200 06/25/24 08/05/24 [Probiotic] Pantoprazole Sodium [Protonix] 40 mg PO BID 06/25/24 08/05/24 Promethazine HCl 12.5 mg PO AC-TID 06/25/24 08/05/24 metFORMIN HCL [Glucophage] 500 mg PO BID 06/25/24 08/05/24 Calcium Carbonate [Tums] 500 mg PO QID PRN 08/05/24 08/05/24 Estradiol Cream [Estrace Cream 1 gm VAGINAL DIRECTED 08/05/24 08/05/24 0.01%] Methenamine Hippurate 1 gm PO BID 08/05/24 08/05/24 Metoprolol Succinate (ER) [Toprol 50 mg PO HS 08/05/24 08/05/24 Xl] Ondansetron Odt [Zofran Odt] 8 mg PO Q8HR PRN 08/05/24 08/05/24 Previous Rx's Medication Instructions Recorded Apixaban [Eliquis] 5 mg PO BID #60 tab 10/16/23 Furosemide [Lasix] 20 mg PO Q48H tab 03/24/24 Memantine [Namenda] 5 mg PO BID tab 03/24/24 Cephalexin [Keflex] 500 mg PO Q12H 7 Days #14 cap 08/05/24 Allergies Allergy/AdvReac Type Severity Reaction Status Date / Time sulfamethoxazole AdvReac Unknown STOMACH Verified 08/16/24 09:26 [From Bactrim] PAIN trimethoprim [From Bactrim] AdvReac Unknown STOMACH Verified 08/16/24 09:26 PAIN spironolactone AdvReac Unknown Verified 08/16/24 09:26 [From Aldactone] HORSE SERUM TETANAS Allergy Severe Anaphylaxis Uncoded 08/16/24 09:26 Novacaine Allergy Anaphylaxis Uncoded 08/16/24 09:26 Review of Systems ROS Statement: Those systems with pertinent positive or pertinent negative responses have been documented in the HPI. ROS Other: All systems not noted in ROS Statement are negative. Past Medical History Past Medical History: Atrial Fibrillation, Diabetes Mellitus, Hyperlipidemia, Hypertension Additional Past Medical History / Comment(s): Sleep Apnea (no machine not working), hx of septicemia, neck, back and shoulder pain, uses cane and rolling walker prn, gout . pt states recent diagnosis of DM 2. History of Any Multi-Drug Resistant Organisms: None Reported Past Surgical History: Adenoidectomy, Bariatric Surgery, Cholecystectomy, Heart Catheterization With Stent, Hernia Repair, Joint Replacement, Tonsillectomy Additional Past Surgical History / Comment(s): GASTRIC SLEEVE (2010- DR MENDEZ), CARPAL TUNNEL MARILYN, CATARACTS, INGUINAL HERNIA, MARILYN TOTAL KNEES, Bilateral TOTAL HIPs, injections in back for spinal stenosis and cervical injections., pain clinic procedures. Past Anesthesia/Blood Transfusion Reactions: No Reported Reaction, Motion Sickness Past Psychological History: Anxiety, Depression Smoking Status: Never smoker Past Alcohol Use History: None Reported Past Drug Use History: None Reported - Past Family History Mother Additional Family Medical History / Comment(s): heart disease Father Family Medical History: Coronary Artery Disease (CAD), CVA/TIA Additional Family Medical History / Comment(s): heart disease General Exam - General Exam Comments Initial Comments: GENERAL: Patient is well-developed and well-nourished. Patient is nontoxic and well- hydrated and is in mild distress. ENT: Neck is soft and supple. No significant lymphadenopathy is noted. Oropharynx is clear. Moist mucous membranes. Neck has full range of motion without eliciting any pain. EYES: The sclera were anicteric and conjunctiva were pink and moist. Extraocular movements were intact and pupils were equal round and reactive to light. Eyelids were unremarkable. PULMONARY: Unlabored respirations. Good breath sounds bilaterally. No audible rales rhonchi or wheezing was noted. CARDIOVASCULAR: There is a regular rate and rhythm without any murmurs gallops or rubs. ABDOMEN: Soft and nontender with normal bowel sounds. SKIN: Skin is clear with no lesions or rashes and otherwise unremarkable. NEUROLOGIC: Patient is alert and oriented x3. Cranial nerves II through XII are grossly intact. Motor and sensory are also intact. Normal speech, volume and content. Symmetrical smile. MUSCULOSKELETAL: Normal extremities with adequate strength and full range of motion. LYMPHATICS: No significant lymphadenopathy is noted PSYCHIATRIC: Normal psychiatric evaluation. Limitations: no limitations Course Vital Signs 08/16/24 09:22 Temperature 98.3 F Pulse Rate 114 H Respiratory 20 Rate Blood Pressure 139/86 O2 Sat by Pulse 92 L Oximetry Medical Decision Making - Medical Decision Making EKG is interpreted by myself. EKG shows atrial fibrillation at 114 bpm QRS is 94 QT interval 362 QTc is 430. Patient's EKG shows no ST segment ovation or d epression Was pt. sent in by a medical professional or institution (, PA, LIVESTOCK TRUCKER, urgent care, hospital, or assisted...) When possible be specific @ -No Did you speak to anyone other than the patient for history (EMS, parent, family, police, friend...)? What history was obtained from this source @ -Family gave quite a bit of the history because patient was extremely tired and did not remember everything Did you review nursing and triage notes (agree or disagree)? Why? @ -I reviewed and agree with nursing and triage notes Were old charts reviewed (outside hosp., previous admission, EMS record, old EKG, old radiological studies, urgent care reports/EKG's, assisted records)? Report findings @ -I reviewed patient's prior urine results and microbiology. Differential Diagnosis? @ -Differential Altered Mental Status: Hypoglycemia, DKA, hypercapnia, ETOH, overdose, CO poisoning, trauma, myxedema coma, HTN encephalopathy, infection, encephalitis, psychosis, intercranial hemorrhage, hepatic encephalopathy, meningitis, CVA, this is not meant to be an all-inclusive list EKG interpreted by me (3pts min.). @ -As above X-rays interpreted by me (1pt min.). @ -Chest x-ray shows bilateral infiltrates CT interpreted by me (1pt min.). @ -None done U/S interpreted by me (1pt. min.). @ -None done What testing was considered but not performed or refused? (CT, X-rays, U/S, labs)? Why? @ -None What meds were considered but not given or refused? Why? @ -None Did you discuss the management of the patient with other professionals (professionals i.e. , PA, LIVESTOCK TRUCKER, lab, RT, psych nurse, social studies teacher, yardage estimator, teacher, property utilization officer, caseworker)? Give summary @ -I spoke with sound physicians agreed to admit the patient admit the patient wrote admitting orders. Was smoking cessation discussed for >3mins.? @ -No Was critical care preformed (if so, how long)? @ -No Were there social determinants of health that impacted care today? How? (Homelessness, low income, unemployed, alcoholism, drug addiction, transportation, low edu. Level, literacy, decrease access to med. care, long term, rehab)? @ -No Was there de-escalation of care discussed even if they declined (Discuss DNR or withdrawal of care, Hospice)? DNR status @ -No What co-morbidities impacted this encounter? (DM, HTN, Smoking, COPD, CAD, Cancer, CVA, ARF, Chemo, Hep., AIDS, mental health diagnosis, sleep apnea, morbid obesity)? @ -None Was patient admitted / discharged? Hospital course, mention meds given and route, prescriptions, significant lab abnormalities, going to OR and other pertinent info. @ -Patient was started on Rocephin in the emergency department. Patient had urinary tract infectionswas at outpatient failure on antibiotics and she had questionable pneumonia. I will admit to sound physicians Undiagnosed new problem with uncertain prognosis? @ -No Drug Therapy requiring intensive monitoring for toxicity (Heparin, Nitro, Insulin, Cardizem)? @ -No Were any procedures done? @ -No Diagnosis/symptom? @ -Urinary tract infection Acute, or Chronic, or Acute on Chronic? @ -Acute Uncomplicated (without systemic symptoms) or Complicated (systemic symptoms)? @ -Complicated Side effects of treatment? @ -No Exacerbation, Progression, or Severe Exacerbation? @ -No Poses a threat to life or bodily function? How? (Chest pain, [place], [place], pneumonia, PE, COPD, DKA, ARF, appy, cholecystitis, CVA, Diverticulitis, Homicidal, Suicidal, threat to staff... and all critical care pts) @ -No Diagnosis/symptom? @ -Pneumonia Acute, or Chronic, or Acute on Chronic? @ -Acute Uncomplicated (without systemic symptoms) or Complicated (systemic symptoms)? @ -Complicated Side effects of treatment? @ -Gated Exacerbation, Progression, or Severe Exacerbation] @ -No Poses a threat to life or bodily function? @ -Yes this could lead to sepsis and endorgan dysfunction - Lab Data Result diagrams: 08/16/24 13:30 08/16/24 13:30 Lab Results 08/16/24 08/16/24 08/16/24 Range/Units 12:37 13:30 13:30 WBC 10.9 H (3.8-10.6) k/uL RBC 3.92 (3.80-5.40) m/uL Hgb 12.5 (11.4-16.0) gm/dL Hct 40.7 (34.0-46.0) % MCV 103.7 H (80.0-100.0) fL MCH 31.9 (25.0-35.0) pg MCHC 30.8 L (31.0-37.0) g/dL RDW 16.6 H (11.5-15.5) % Plt Count 311 (150-450) k/uL MPV 8.9 Neutrophils % 80 % Lymphocytes % 13 % Monocytes % 5 % Eosinophils % 1 % Basophils % 1 % Neutrophils # 8.7 H (1.3-7.7) k/uL Lymphocytes # 1.4 (1.0-4.8) k/uL Monocytes # 0.5 (0-1.0) k/uL Eosinophils # 0.1 (0-0.7) k/uL Basophils # 0.1 (0-0.2) k/uL Hypochromasia Moderate Anisocytosis Slight Macrocytosis Moderate Sodium 142 (137-145) mmol/L Potassium 3.4 L (3.5-5.1) mmol/L Chloride 108 H (98-107) mmol/L Carbon Dioxide 22 (22-30) mmol/L Anion Gap 12 mmol/L BUN 32 H (7-17) mg/dL Creatinine 1.24 H (0.52-1.04) mg/dL Est GFR (CKD-EPI)AfAm 48 (>60 ml/min/1.73 sqM) Est GFR (CKD-EPI)NonAf 42 (>60 ml/min/1.73 sqM) Glucose 151 H (74-99) mg/dL Calcium 9.5 (8.4-10.2) mg/dL Total Bilirubin 1.3 (0.2-1.3) mg/dL AST 42 H (14-36) U/L ALT 54 H (4-34) U/L Alkaline Phosphatase 124 (38-126) U/L Total Protein 6.8 (6.3-8.2) g/dL Albumin 4.1 (3.5-5.0) g/dL Urine Color Light Yellow Urine Appearance Cloudy H (Clear) Urine pH 5.5 (5.0-8.0) Ur Specific [place] 1.014 (1.001-1.035) Urine Protein 1+ H (Negative) Urine Glucose (UA) Negative (Negative) Urine Ketones Negative (Negative) Urine Blood Trace H (Negative) Urine Nitrite Negative (Negative) Urine Bilirubin Negative (Negative) Urine Urobilinogen <2.0 (<2.0) mg/dL Ur Leukocyte Esterase Large H (Negative) Urine RBC 3 (0-5) /hpf Urine WBC 161 H (0-5) /hpf Urine WBC Clumps Rare H (None) /hpf Ur Squamous Epith Cells 1 (0-4) /hpf Urine Bacteria Rare H (None) /hpf Ur Yeast w Hyphae Rare (None) /hpf Urine Yeast (Budding) Few H (None) /hpf Disposition Clinical Impression: Urinary tract infection, Pneumonia Disposition: ADMITTED IP TO THIS HOSP Referrals: Blas Williamson DO [Primary Care Provider] - 1-2 days Time of Disposition: 14:47
[2024-08-16] MEDS: cefTRIAXone IN SWFI 1,000 MG/10 ML SYRINGE IVP STA ×2 (14:48→14:49)
[2024-08-16] MEDS ORDERED: ONDANSETRON 4 MG/2 ML VIAL IVP PRN (15:02)
[2024-08-16] MEDS ORDERED: NALOXONE 0.4 MG/ML 1 ML VIAL IV PRN (15:02)
[2024-08-16] MEDS: SODIUM CHLORIDE 0.9% 1,000 ML IV SCH (15:46)
[2024-08-16] MEDS ORDERED: DEXTROSE 50% SYRINGE 50 ML IVP PRN ×2 (15:47)
[2024-08-16] MEDS: FUROSEMIDE 10 MG/ML 4 ML VIAL IV STA (15:53)
[2024-08-16] MEDS: METOPROLOL SUCCINATE (ER) 50 MG TAB.ER.24H PO SCH (15:53)
[2024-08-16] MEDS: POTASSIUM CHLORIDE ER 20 MEQ TAB.ER PO STA (15:53)
[2024-08-16] MEDS: DAPTOmycin 500 MG in SODIUM CHLORIDE 0.9% 50 ML IVPB SCH (15:54)
--- NOTE | 2024-08-16 15:55 | P.HPIM ---
History of Present Illness H&P Date: 08/16/24 78 year old F with PMH of CAD, HFrEF EF 25-30% on 10/2023 Echo, recurrent UTI, DM, Gout, A-Fib, Hypothyroid, Dementia, Gastritis presents to the ED. Son and providing majority of the history. They report confusion, urinary urgency, delirium and restlessness over the past 2 days. Also reports decreased appetite and PO intake over the past 2 days. Patient reports some shortness of breath with ambulation and lower extremity swelling. She was recently seen in the ED on 08/05 for a mechanical fall. In the ED she underwent extensive evaluation. BP 139/86, HR 114, T 98.3F, RR 20, 92% on RA. CBC, CMP significant for WBC 10.9, MCV 103.7, K 3.4, Cl 108, BUN 32, Cr 1.24, glu 151, AST 42, ALT 54. BNP 14358. Lactic acid 2.0. UA large LE. EKG A-Fib with RVR rate of 114, incomplete RBBB. CXR showed bilateral patchy pleural opacities with pleural effusion. Patient was given 1g of Rocephin IV and 2 x 500 cc NS bolus. Admitted for treatment of UTI sepsis. General: non toxic, no distress, appears at stated age Derm: warm, dry Head: atraumatic, normocephalic, symmetric Eyes: EOMI, no lid lag, anicteric sclera Mouth: no lip lesion, mucus membranes moist Cardiovascular: S1S2 irreg, no murmur, 1-2+ pitting LE edema Lungs: Decreased BS bilaterally, no rhonchi, no rales , no accessory muscle use Abd: Soft non tender to palpation Neuro: no focal neuro deficits Psych: Lethargic Based on my assessment of this patient, this patient meets a high complexity level of care. Acute metabolic encephalopathy: Fall precautions. Likely due to UTI sepsis. Acute hypoxic respiratory failure secondary to systolic CHF exacerbation: Cepheid 4-Plex ordered. Start Lasix 40 mg IV BID. Strict intake and outtake. Daily weights. Echo ordered. Cardio consulted. 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 Collect UCx. Follow BCx. Telemetry monitoring. Stop IVF given BP maintaining and h/o CHF. ID consulted. Atrial fibrillation with RVR: Metoprolol 100 mg PO now followed by 100 mg PO BI D. Replace K. Obtain Mag. Digoxin 0.125 mg PO QD. Eliquis 5 mg PO BID for AC. Cardio consulted. Acute kidney injury on chronic kidney disease: Status post 2 x 500 cc NS bolus. Avoid nephrotoxic meds. Monitor. Hypokalemia: KCl 40 meq PO x 1. Transaminitis: Monitor. Dementia: Memantine 5 mg PO BID. CAD: Not of ASA or statin. Beta marce as above. Cardio consulted. Diabetes mellitus: ISS ACHS. Accuchecks ACHS. Hypoglycemic precautions. Gout: Allopurinol 100 mg PO QHS. Hypothyroid: Synthroid 75 mcg PO QD. Gastritis: Protonix 40 mg PO BID. CODE STATUS: NO CODE. DVT Prophylaxis: Elquis GI Prophylaxis: Protonix Designated medical POA if patient is not able to make medical decisions for themselves: , Son and Daughter I have reviewed the following cardiology clinical consultant notes: ED note I have reviewed the results of the following tests: As above. I have ordered the following tests: As above. I have discussed the care of this patient with the following independent historian: Son and . RN. I have independently interpreted the following test below: EKG. Past Medical History Past Medical History: Atrial Fibrillation, Diabetes Mellitus, Hyperlipidemia, Hypertension Additional Past Medical History / Comment(s): Sleep Apnea (no machine not working), hx of septicemia, neck, back and shoulder pain, uses cane and rolling walker prn, gout . pt states recent diagnosis of DM 2. History of Any Multi-Drug Resistant Organisms: None Reported Past Surgical History: Adenoidectomy, Bariatric Surgery, Cholecystectomy, Heart Catheterization With Stent, Hernia Repair, Joint Replacement, Tonsillectomy Additional Past Surgical History / Comment(s): GASTRIC SLEEVE (2010- DR MENDEZ), CARPAL TUNNEL MARILYN, CATARACTS, INGUINAL HERNIA, MARILYN TOTAL KNEES, Bilateral TOTAL HIPs, injections in back for spinal stenosis and cervical injections., pain clinic procedures. Past Anesthesia/Blood Transfusion Reactions: No Reported Reaction, Motion Sick ness Past Psychological History: Anxiety, Depression Smoking Status: Never smoker Past Alcohol Use History: None Reported Past Drug Use History: None Reported - Past Family History Mother Additional Family Medical History / Comment(s): heart disease Father Family Medical History: Coronary Artery Disease (CAD), CVA/TIA Additional Family Medical History / Comment(s): heart disease Medications and Allergies Home Medications Medication Instructions Recorded Confirmed Type FLUoxetine HCL [PROzac] 60 mg PO HS 08/02/20 08/16/24 History Multivitamins, Thera [Multivitamin 1 tab PO DAILY 08/02/20 08/16/24 History (formulary)] Zafirlukast [Accolate] 20 mg PO BID 08/02/20 08/16/24 History allopurinoL [Zyloprim] 300 mg PO HS 08/02/20 08/16/24 History Apixaban [Eliquis] 5 mg PO BID #60 tab 10/16/23 08/16/24 Rx Furosemide [Lasix] 20 mg PO Q48H tab 03/24/24 08/16/24 Rx Memantine [Namenda] 5 mg PO BID tab 03/24/24 08/16/24 Rx Levothyroxine Sodium [Synthroid] 75 mcg PO DAILY 05/08/24 08/16/24 History Metoprolol Succinate (ER) [Toprol 100 mg PO DAILY 05/08/24 08/16/24 History Xl] Nitroglycerin Sl Tabs [Nitrostat] 0.4 mg SL Q5M PRN 05/08/24 08/16/24 History Bismuth Subsalicylate 524 mg PO Q4H PRN 06/25/24 08/16/24 History [Pepto-Bismol] Clotrimazole/Betameth Cream 1 applic TOPICAL DAILY PRN 06/25/24 08/16/24 History [Lotrisone] Cranberry 1 dose PO DAILY@1200 06/25/24 08/16/24 History L.acidoph,Paracasei, B.lactis 1 cap PO DAILY@1200 06/25/24 08/16/24 History [Probiotic] Pantoprazole Sodium [Protonix] 40 mg PO BID 06/25/24 08/16/24 History Promethazine HCl 12.5 mg PO AC-TID 06/25/24 08/16/24 History metFORMIN HCL [Glucophage] 500 mg PO BID 06/25/24 08/16/24 History Calcium Carbonate [Tums] 500 mg PO QID PRN 08/05/24 08/16/24 History Estradiol Cream [Estrace Cream 1 gm VAGINAL DIRECTED 08/05/24 08/16/24 History 0.01%] Methenamine Hippurate 1 gm PO BID 08/05/24 08/16/24 History Metoprolol Succinate (ER) [Toprol 50 mg PO HS 08/05/24 08/16/24 History Xl] Ondansetron Odt [Zofran Odt] 8 mg PO Q8HR PRN 08/05/24 08/16/24 History Digoxin [Digitek] 125 mcg PO DAILY 08/16/24 08/16/24 History Allergies Allergy/AdvReac Type Severity Reaction Status Date / Time sulfamethoxazole AdvReac Unknown STOMACH Verified 08/16/24 09:26 [From Bactrim] PAIN trimethoprim [From Bactrim] AdvReac Unknown STOMACH Verified 08/16/24 09:26 PAIN spironolactone AdvReac Unknown Verified 08/16/24 09:26 [From Aldactone] HORSE SERUM TETANAS Allergy Severe Anaphylaxis Uncoded 08/16/24 09:26 Novacaine Allergy Anaphylaxis Uncoded 08/16/24 09:26 Physical Exam Vitals: Vital Signs Temp Pulse Resp BP Pulse Ox 08/16/24 14:56 122 H 18 153/80 89 L 08/16/24 09:22 98.3 F 114 H 20 139/86 92 L Intake and Output 08/16/24 08/16/24 08/16/24 06:59 14:59 22:59 Other: Weight 77.111 kg Results CBC & Chem 7: 08/16/24 13:30 08/16/24 13:30 Labs: Abnormal Lab Results - Last 24 Hours (Table) 08/16/24 08/16/24 08/16/24 Range/Units 12:37 13:30 13:30 WBC 10.9 H (3.8-10.6) k/uL MCV 103.7 H (80.0-100.0) fL MCHC 30.8 L (31.0-37.0) g/dL RDW 16.6 H (11.5-15.5) % Neutrophils # 8.7 H (1.3-7.7) k/uL Potassium 3.4 L (3.5-5.1) mmol/L Chloride 108 H (98-107) mmol/L BUN 32 H (7-17) mg/dL Creatinine 1.24 H (0.52-1.04) mg/dL Glucose 151 H (74-99) mg/dL AST 42 H (14-36) U/L ALT 54 H (4-34) U/L Urine Appearance Cloudy H (Clear) Urine Protein 1+ H (Negative) Urine Blood Trace H (Negative) Ur Leukocyte Esterase Large H (Negative) Urine WBC 161 H (0-5) /hpf Urine WBC Clumps Rare H (None) /hpf Urine Bacteria Rare H (None) /hpf Urine Yeast (Budding) Few H (None) /hpf
[2024-08-16 17:41] LABS: Glucose,Whole Blood 128 mg/dL (70-110)
[2024-08-16] MEDS: PANTOPRAZOLE 40 MG TABLET PO SCH (17:41)
[2024-08-16] MEDS: INSULIN ASPART (NovoLOG) 100 UNIT/ML VIAL SQ SCH (17:44)
[2024-08-16] MEDS: ACETAMINOPHEN TAB 325 MG TAB PO PRN (19:36)
[2024-08-16] MEDS: QUEtiapine 50 MG TAB PO STA (19:57)
[2024-08-16] MEDS: DILTIAZEM ORAL 60 MG TAB PO STA (19:57)
[2024-08-16] MEDS ORDERED: METOPROLOL SUCCINATE (ER) 50 MG TAB.ER.24H PO SCH (21:00)
[2024-08-16 21:10] LABS: Glucose,Whole Blood 151 mg/dL (70-110)
[2024-08-16] MEDS: allopurinoL 300 MG TAB PO SCH (21:12)
[2024-08-16] MEDS: MEMANTINE 5 MG TAB PO SCH (21:12)
[2024-08-16] MEDS: MONTELUKAST 10 MG TAB PO SCH (21:12)
[2024-08-16] MEDS: APIXABAN 5 MG TAB PO SCH (21:12)
[2024-08-16] MEDS: FLUoxetine HCL 20 MG CAP PO SCH (21:12)
[2024-08-17] MEDS: LEVOTHYROXINE 75 MCG TAB PO SCH (06:38)
[2024-08-17 06:48] LABS: Glucose,Whole Blood 83 mg/dL (70-110)
[2024-08-17 07:58] LABS: Anisocytosis Slight; Basophils # (A) 0.1 k/uL (0-0.2); Basophils % (A) 1 %; Eosinophils # (A) 0.2 k/uL (0-0.7); Eosinophils % (A) 2 %; HGB 11.4 gm/dL (11.4-16.0); Hypochromasia Slight; Lymphocytes # (A) 1.2 k/uL (1.0-4.8); Lymphocytes % (A) 14 %; MCH 33.1 pg (25.0-35.0); MCHC 31.7 g/dL (31.0-37.0); MCV 104.5 fL (80.0-100.0); Macrocytosis Moderate; Mean Platelet Volume 9.4; Monocytes # (A) 0.6 k/uL (0-1.0); Monocytes % (A) 7 %; Neutrophils # (A) 6.2 k/uL (1.3-7.7); Neutrophils % (A) 74 %; Platelet Count 228 k/uL (150-450); RBC 3.44 m/uL (3.80-5.40); RDW 17.1 % (11.5-15.5); WBC 8.4 k/uL (3.8-10.6)
[2024-08-17 08:05] LABS: ALT 41 U/L (4-34); AST 35 U/L (14-36); African American GFR (CKD) 48 (>60 ml/min/1.73 sqM); Albumin 3.2 g/dL (3.5-5.0); Albumin/Globulin Ratio 1.3; Alkaline Phosphatase 99 U/L (38-126); Anion Gap 8 mmol/L; Blood Urea Nitrogen 33 mg/dL (7-17); Calcium 8.9 mg/dL (8.4-10.2); Carbon Dioxide 21 mmol/L (22-30); Chloride 114 mmol/L (98-107); Globulin 2.5 g/dL; Glucose 81 mg/dL (74-99); Magnesium 1.4 mg/dL (1.6-2.3); Non-African American GFR(CKD) 41 (>60 ml/min/1.73 sqM); Potassium 3.5 mmol/L (3.5-5.1); Sodium 143 mmol/L (137-145); Total Bilirubin 0.9 mg/dL (0.2-1.3); Total Protein 5.7 g/dL (6.3-8.2)
[2024-08-17] MEDS: FUROSEMIDE 10 MG/ML 4 ML VIAL IV SCH (08:52)
[2024-08-17] MEDS ORDERED: FUROSEMIDE 20 MG TAB PO SCH (09:00)
[2024-08-17] MEDS: DIGOXIN 125 MCG TAB PO SCH (09:31)
[2024-08-17] MEDS: METOPROLOL SUCCINATE (ER) 100 MG TAB.ER.24H PO SCH (09:31)
--- NOTE | 2024-08-17 11:01 | XR ---
EXAMINATION TYPE: XR chest 1V portable DATE OF EXAM: 08/17/2024 COMPARISON: 08/16/2024 HISTORY: CHF TECHNIQUE: Single frontal view of the chest is obtained. FINDINGS: There is moderate cardiomegaly. There is decreasing airspace opacification in the perihilar regions. There is no large pleural effusion. There is no pneumothorax. There are advanced degenerative changes of the glenohumeral joints bilaterally. IMPRESSION: Significant improvement in the acute cardiopulmonary disease as described above. The fin dings are possibly indicate resolving CHF. [facility], , 08/17/2024 10:59 AM
[2024-08-17] MEDS: MAGNESIUM SULFATE-D5W PMX 1 GM in DEXTROSE/WATER 1 100ML.BAG IVPB SCH (11:27)
[2024-08-17 12:17] LABS: Glucose,Whole Blood 126 mg/dL (70-110)
--- NOTE | 2024-08-17 12:17 | P.PN ---
Subjective Progress Note Date: 08/17/24 78 year old F with PMH of CAD, HFrEF EF 25-30% on 10/2023 Echo, recurrent UTI, DM, Gout, A-Fib, Hypothyroid, Dementia, Gastritis presents to the ED. Son and providing majority of the history. They report confusion, urinary urgency, delirium and restlessness over the past 2 days. Also reports decreased appetite and PO intake over the past 2 days. Patient reports some shortness of breath with ambulation and lower extremity swelling. She was recently seen in the ED on 08/05 for a mechanical fall. In the ED she underwent extensive evaluation. BP 139/86, HR 114, T 98.3F, RR 20, 92% on RA. CBC, CMP significant for WBC 10.9, MCV 103.7, K 3.4, Cl 108, BUN 32, Cr 1.24, glu 151, AST 42, ALT 54. BNP 35741. Lactic acid 2.0. UA large LE. EKG A-Fib with RVR rate of 114, incomplete RBBB. CXR showed bilateral patchy pleural opacities with pleural effusion. Patient was given 1g of Rocephin IV and 2 x 500 cc NS bolus. Admitted for treatment of UTI sepsis. 08/17 Patient was seen and examined. Breathing better. HR in the low 100s. CBC and CMP significant for RBC 3.44, MCV 104.5, Cl 114, bicarb 21, BUN 33, Cr 1.25, ALT 41, alb 3.2. Mag 1.4. Cepheid 4-Plex neg. CXR shows significant improvement in pulmonary vascular congestion. General: non toxic, no distress, appears at stated age Derm: warm, dry Head: atraumatic, normocephalic, symmetric Eyes: EOMI, no lid lag, anicteric sclera Mouth: no lip lesion, mucus membranes moist Cardiovascular: S1S2 irreg, no murmur, 1-2+ pitting LE edema Lungs: Decreased BS bilaterally, no rhonchi, no rales , no accessory muscle use Abd: Soft non tender to palpation Neuro: no focal neuro deficits Psych: Lethargic Based on my assessment of this patient, this patient meets a high complexity level of care. Acute metabolic encephalopathy: Fall precautions. Likely due to UTI sepsis. Acute hypoxic respiratory failure secondary to systolic CHF exacerbation: Dec reased Lasix to 40 mg IV QD from BID. Strict intake and outtake. Daily weights. Echo ordered. Cardio consulted. 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 Follow UCx, BCx. Telemetry monitoring. Stop IVF given BP maintaining and h/o CHF. ID consulted. Atrial fibrillation with RVR: Metoprolol 100 mg PO now followed by 100 mg PO BID. K > 4 and Mg > 2. Digoxin 0.125 mg PO QD. Eliquis 5 mg PO BID for AC. Cardio consulted. Acute kidney injury on chronic kidney disease: Status post 2 x 500 cc NS bolus. Avoid nephrotoxic meds. Monitor. HypoMag Mag suflate x 1. Transaminitis: Monitor. Dementia: Memantine 5 mg PO BID. CAD: Not of ASA or statin. Beta marce as above. Cardio consulted. Diabetes mellitus: ISS ACHS. Accuchecks ACHS. Hypoglycemic precautions. Gout: Allopurinol 100 mg PO QHS. Hypothyroid: Synthroid 75 mcg PO QD. Gastritis: Protonix 40 mg PO BID. CODE STATUS: NO CODE. DVT Prophylaxis: Elquis GI Prophylaxis: Protonix Designated medical POA if patient is not able to make medical decisions for themselves: , Son and Daughter I have reviewed the following outreach consultant notes: I have reviewed the results of the following tests: CBC, CMP, Mag, COVID/RSV/F jason. I have ordered the following tests: Echo pending. CBC and BMP, Mag in the AM. I have discussed the care of this patient with the following independent historian: I have independently interpreted the following test below: CXR Objective - Vital Signs Vital signs: Vital Signs Temp 97.5 F L 08/17/24 08:00 Pulse 76 08/17/24 08:00 Resp 18 08/17/24 08:00 BP 140/91 08/17/24 08:00 Pulse Ox 94 L 08/17/24 08:00 FiO2 Intake & Output 08/16/24 08/17/24 08/17/24 18:59 06:59 18:59 Output Total 1000 Balance -1000 Weight 77.111 kg 77.111 kg Output: Urine 1000 - Labs CBC & Chem 7: 08/17/24 07:30 08/17/24 07:30 Labs: Abnormal Lab Results - Last 24 Hours (Table) 08/16/24 08/16/24 08/16/24 Range/Units 12:37 13:30 13:30 WBC 10.9 H (3.8-10.6) k/uL RBC (3.80-5.40) m/uL MCV 103.7 H (80.0-100.0) fL MCHC 30.8 L (31.0-37.0) g/dL RDW 16.6 H (11.5-15.5) % Neutrophils # 8.7 H (1.3-7.7) k/uL Potassium 3.4 L (3.5-5.1) mmol/L Chloride 108 H (98-107) mmol/L Carbon Dioxide (22-30) mmol/L BUN 32 H (7-17) mg/dL Creatinine 1.24 H (0.52-1.04) mg/dL Glucose 151 H (74-99) mg/dL POC Glucose (mg/dL) (70-110) mg/dL Magnesium (1.6-2.3) mg/dL AST 42 H (14-36) U/L ALT 54 H (4-34) U/L Total Protein (6.3-8.2) g/dL Albumin (3.5-5.0) g/dL Urine Appearance Cloudy H (Clear) Urine Protein 1+ H (Negative) Urine Blood Trace H (Negative) Ur Leukocyte Esterase Large H (Negative) Urine WBC 161 H (0-5) /hpf Urine WBC Clumps Rare H (None) /hpf Urine Bacteria Rare H (None) /hpf Urine Yeast (Budding) Few H (None) /hpf 08/16/24 08/16/24 08/17/24 Range/Units 17:39 21:09 07:30 WBC (3.8-10.6) k/uL RBC 3.44 L (3.80-5.40) m/uL MCV 104.5 H (80.0-100.0) fL MCHC (31.0-37.0) g/dL RDW 17.1 H (11.5-15.5) % Neutrophils # (1.3-7.7) k/uL Potassium (3.5-5.1) mmol/L Chloride (98-107) mmol/L Carbon Dioxide (22-30) mmol/L BUN (7-17) mg/dL Creatinine (0.52-1.04) mg/dL Glucose (74-99) mg/dL POC Glucose (mg/dL) 128 H 151 H (70-110) mg/dL Magnesium (1.6-2.3) mg/dL AST (14-36) U/L ALT (4-34) U/L Total Protein (6.3-8.2) g/dL Albumin (3.5-5.0) g/dL Urine Appearance (Clear) Urine Protein (Negative) Urine Blood (Negative) Ur Leukocyte Esterase (Negative) Urine WBC (0-5) /hpf Urine WBC Clumps (None) /hpf Urine Bacteria (None) /hpf Urine Yeast (Budding) (None) /hpf 08/17/24 Range/Units 07:30 WBC (3.8-10.6) k/uL RBC (3.80-5.40) m/uL MCV (80.0-100.0) fL MCHC (31.0-37.0) g/dL RDW (11.5-15.5) % Neutrophils # (1.3-7.7) k/uL Potassium (3.5-5.1) mmol/L Chloride 114 H (98-107) mmol/L Carbon Dioxide 21 L (22-30) mmol/L BUN 33 H (7-17) mg/dL Creatinine 1.25 H (0.52-1.04) mg/dL Glucose (74-99) mg/dL POC Glucose (mg/dL) (70-110) mg/dL Magnesium 1.4 L (1.6-2.3) mg/dL AST (14-36) U/L ALT 41 H (4-34) U/L Total Protein 5.7 L (6.3-8.2) g/dL Albumin 3.2 L (3.5-5.0) g/dL Urine Appearance (Clear) Urine Protein (Negative) Urine Blood (Negative) Ur Leukocyte Esterase (Negative) Urine WBC (0-5) /hpf Urine WBC Clumps (None) /hpf Urine Bacteria (None) /hpf Urine Yeast (Budding) (None) /hpf
[2024-08-17] MEDS: HYDROcodone/APAP 5-325MG 1 EACH TAB PO PRN (12:37)
[2024-08-17] MEDS: DILTIAZEM ORAL 60 MG TAB PO SCH (13:13)
--- NOTE | 2024-08-17 15:50 | P.CRDCN ---
History of Present Illness Consult date: 08/17/24 History of present illness: HISTORY OF PRESENTING ILLNESS With past medical history of persistent atrial fibrillation, dilated cardiomyopathy EF 25% coronary artery disease with PCI, moderate mitral regurgitation. She was last in hospital in February 2024 with symptoms of altered mental status and concerns of possible UTI. Currently she is in the hospital with a similar presentation of altered mental status and concerns of UTI. She is also in mild heart failure exacerbation with elevated NT proBNP. She is also noticed to be in atrial fibrillation with RVR on admission. She denies any any chest pain chest pressure. She is a poor historian because of impaired hearing REVIEW OF SYSTEMS 14 point review of system is negative except what is mentioned above in HPI. PHYSICAL EXAMINATION Neck: Brisk carotid upstroke, elevated JVD Lungs: Clear to auscultation. Heart: Irregularly irregular pulse, systolic murmur audible Abdomen: Soft nontender, positive bowel sounds. Extremities: No significant swelling in bilateral lower extremity Neuro: Alert, oritented, no focal deficits. Detailed neuro exam was not performed. ASSESSMENT Acute HFrEF exacerbation Cardiomyopathy , mostly nonischemic cardiomyopathy competent. Moderate mitral regurgitation Persistent atrial fibrillation CAD status post PCI October 2023 Metabolic encephalopathy and altered mental status UTI PLAN Continue Eliquis. Resume Plavix for recent PCI Continue digoxin 125 mcg daily, metoprolol increased to 100 mg twice daily Discontinue Cardizem because of low LVEF Cannot add Farxiga because of UTIs Aldactone 12.5 mg daily and change IV Lasix to p.o. torsemide 10 mg daily. Philipp Ulrich MD, FACC, RPVI Thank you for allowing [facility] to participate in this patient's care. Feel free to reach out in case of any followup questions. Past Medical History Past Medical History: Atrial Fibrillation, Diabetes Mellitus, Hyperlipidemia, Hypertension Additional Past Medical History / Comment(s): Sleep Apnea (no machine not working), hx of septicemia, neck, back and shoulder pain, uses cane and rolling walker prn, gout . pt states recent diagnosis of DM 2. History of Any Multi-Drug Resistant Organisms: None Reported Past Surgical History: Adenoidectomy, Bariatric Surgery, Cholecystectomy, Heart Catheterization With Stent, Hernia Repair, Joint Replacement, Tonsillectomy Additional Past Surgical History / Comment(s): GASTRIC SLEEVE (2010- DR MENDEZ), CARPAL TUNNEL MARILYN, CATARACTS, INGUINAL HERNIA, MARILYN TOTAL KNEES, Bilateral TOTAL HIPs, injections in back for spinal stenosis and cervical injections., pain clinic procedures. Past Anesthesia/Blood Transfusion Reactions: No Reported Reaction, Motion Sickness Date of Last Stent Placement:: 11/07/23 Past Psychological History: Anxiety, Depression Smoking Status: Never smoker Past Alcohol Use History: None Reported Past Drug Use History: None Reported Additional Drug Use History / Comment(s): cbd oil in the past. - Past Family History Mother Additional Family Medical History / Comment(s): heart disease Father Family Medical History: Coronary Artery Disease (CAD), CVA/TIA Additional Family Medical History / Comment(s): heart disease Medications and Allergies Home Medications Medication Instructions Recorded Confirmed Type FLUoxetine HCL [PROzac] 60 mg PO HS 08/02/20 08/16/24 History Multivitamins, Thera [Multivitamin 1 tab PO DAILY 08/02/20 08/16/24 History (formulary)] Zafirlukast [Accolate] 20 mg PO BID 08/02/20 08/16/24 History allopurinoL [Zyloprim] 300 mg PO HS 08/02/20 08/16/24 History Apixaban [Eliquis] 5 mg PO BID #60 tab 10/16/23 08/16/24 Rx Furosemide [Lasix] 20 mg PO Q48H tab 03/24/24 08/16/24 Rx Memantine [Namenda] 5 mg PO BID tab 03/24/24 08/16/24 Rx Levothyroxine Sodium [Synthroid] 75 mcg PO DAILY 05/08/24 08/16/24 History Metoprolol Succinate (ER) [Toprol 100 mg PO DAILY 05/08/24 08/16/24 History Xl] Nitroglycerin Sl Tabs [Nitrostat] 0.4 mg SL Q5M PRN 05/08/24 08/16/24 History Bismuth Subsalicylate 524 mg PO Q4H PRN 06/25/24 08/16/24 History [Pepto-Bismol] Clotrimazole/Betameth Cream 1 applic TOPICAL DAILY PRN 06/25/24 08/16/24 History [Lotrisone] Cranberry 1 dose PO DAILY@1200 06/25/24 08/16/24 History L.acidoph,Paracasei, B.lactis 1 cap PO DAILY@1200 06/25/24 08/16/24 History [Probiotic] Pantoprazole Sodium [Protonix] 40 mg PO BID 06/25/24 08/16/24 History Promethazine HCl 12.5 mg PO AC-TID 06/25/24 08/16/24 History metFORMIN HCL [Glucophage] 500 mg PO BID 06/25/24 08/16/24 History Calcium Carbonate [Tums] 500 mg PO QID PRN 08/05/24 08/16/24 History Estradiol Cream [Estrace Cream 1 gm VAGINAL DIRECTED 08/05/24 08/16/24 History 0.01%] Methenamine Hippurate 1 gm PO BID 08/05/24 08/16/24 History Metoprolol Succinate (ER) [Toprol 50 mg PO HS 08/05/24 08/16/24 History Xl] Ondansetron Odt [Zofran Odt] 8 mg PO Q8HR PRN 08/05/24 08/16/24 History Digoxin [Digitek] 125 mcg PO DAILY 08/16/24 08/16/24 History Allergies Allergy/AdvReac Type Severity Reaction Status Date / Time sulfamethoxazole AdvReac Unknown STOMACH Verified 08/16/24 09:26 [From Bactrim] PAIN trimethoprim [From Bactrim] AdvReac Unknown STOMACH Verified 08/16/24 09:26 PAIN spironolactone AdvReac Unknown Verified 08/16/24 09:26 [From Aldactone] HORSE SERUM TETANAS Allergy Severe Anaphylaxis Uncoded 08/16/24 09:26 Novacaine Allergy Anaphylaxis Uncoded 08/16/24 09:26 Physical Exam Vitals: Vital Signs Temp Pulse Pulse Resp BP BP BP 08/17/24 14:10 98.3 F 70 17 135/78 08/17/24 12:49 158/123 08/17/24 08:00 97.5 F L 76 18 140/91 08/17/24 07:40 97.6 F 103 H 20 116/68 08/17/24 06:00 98.1 F 99 20 114/79 08/17/24 04:00 98.2 F 90 18 118/74 08/17/24 01:30 99.0 F 106 H 20 116/77 08/17/24 00:00 87 20 111/73 08/16/24 19:42 124 H 20 145/107 08/16/24 17:00 117 H 18 166/90 08/16/24 16:15 97.8 F 08/16/24 16:10 125 H 18 158/127 08/16/24 16:00 117 H 20 150/137 Pulse Ox 08/17/24 14:10 96 08/17/24 12:49 08/17/24 08:00 94 L 08/17/24 07:40 96 08/17/24 06:00 97 08/17/24 04:00 99 08/17/24 01:30 98 08/17/24 00:00 98 08/16/24 19:42 96 08/16/24 17:00 94 L 08/16/24 16:15 92 L 08/16/24 16:10 92 L 08/16/24 16:00 93 L Intake and Output 08/17/24 08/17/24 08/17/24 06:59 14:59 22:59 Other: Weight 77.111 kg Results 08/17/24 07:30 08/17/24 07:30 Cardiac Enzymes 08/17/24 Range/Units 07:30 AST 35 (14-36) U/L CBC 08/17/24 Range/Units 07:30 WBC 8.4 (3.8-10.6) k/uL RBC 3.44 L (3.80-5.40) m/uL Hgb 11.4 (11.4-16.0) gm/dL Hct 36.0 (34.0-46.0) % Plt Count 228 (150-450) k/uL Comprehensive Metabolic Panel 08/17/24 Range/Units 07:30 Sodium 143 (137-145) mmol/L Potassium 3.5 (3.5-5.1) mmol/L Chloride 114 H (98-107) mmol/L Carbon Dioxide 21 L (22-30) mmol/L BUN 33 H (7-17) mg/dL Creatinine 1.25 H (0.52-1.04) mg/dL Glucose 81 (74-99) mg/dL Calcium 8.9 (8.4-10.2) mg/dL AST 35 (14-36) U/L ALT 41 H (4-34) U/L Alkaline Phosphatase 99 (38-126) U/L Total Protein 5.7 L (6.3-8.2) g/dL Albumin 3.2 L (3.5-5.0) g/dL Current Medications Generic Name Dose Route Start Last Admin Trade Name Freq PRN Reason Stop Dose Admin Acetaminophen 650 mg 08/16/24 15:02 08/16/24 19:36 Acetaminophen Tab 325 Mg Tab PO 650 mg Q6HR PRN Administration Mild Pain or Fever > 100.5 Hydrocodone Bitart/Acetaminophen 1 each 08/16/24 15:02 08/17/24 12:37 Hydrocodone/Apap 5-325mg 1 Each Tab PO 1 each Q4HR PRN Administration Moderate Pain (Scale 4 to 6) Allopurinol 300 mg 08/16/24 21:00 08/16/24 21:12 Allopurinol 300 Mg Tab PO 300 mg HS CLIVE Administration Apixaban 5 mg 08/16/24 21:00 08/17/24 08:51 Apixaban 5 Mg Tab PO 5 mg BID CLIVE Administration Protocol Atorvastatin Calcium 40 mg 08/17/24 21:00 Atorvastatin 40 Mg Tab PO HS CLIVE Clopidogrel Bisulfate 75 mg 08/17/24 15:45 Clopidogrel 75 Mg Tab PO DAILY CLIVE Dextrose/Water 25 ml 08/16/24 15:47 Dextrose 50% Syringe 50 Ml IVP PER PROTOCOL PRN Hypoglycemia Protocol Dextrose/Water 50 ml 08/16/24 15:47 Dextrose 50% Syringe 50 Ml IVP PER PROTOCOL PRN Hypoglycemia Protocol Digoxin 125 mcg 08/17/24 09:00 08/17/24 09:31 Digoxin 125 Mcg Tab PO 125 mcg DAILY CLIVE Administration Fluoxetine HCl 60 mg 08/16/24 21:00 08/16/24 21:12 Fluoxetine Hcl 20 Mg Cap PO 60 mg HS CLIVE Administration Furosemide 40 mg 08/18/24 09:00 Furosemide 10 Mg/Ml 4 Ml Vial IV DAILY CLIVE Daptomycin 500 mg/ Sodium 50 mls @ 100 mls/hr 08/16/24 15:00 08/17/24 15:19 Chloride IVPB 100 mls/hr Q24H CLIVE Administration Protocol Insulin Aspart 0 unit 08/16/24 17:30 08/17/24 12:20 Insulin Aspart (Novolog) 100 Unit/Ml Vial SQ Not Given ACHS CLIVE Protocol Levothyroxine Sodium 75 mcg 08/17/24 06:30 08/17/24 06:38 Levothyroxine 75 Mcg Tab PO 75 mcg DAILY@0630 CLIVE Administration Memantine 5 mg 08/16/24 21:00 08/17/24 08:51 Memantine 5 Mg Tab PO 5 mg BID CLIVE Administration Metoprolol Succinate 100 mg 08/17/24 09:00 08/17/24 09:31 Metoprolol Succinate (Er) 100 Mg Tab.Er.24h PO 100 mg DAILY CLIVE Administration Metoprolol Succinate 100 mg 08/16/24 21:00 08/16/24 15:53 Metoprolol Succinate (Er) 50 Mg Tab.Er.24h PO 100 mg HS CLIVE Administration Montelukast Sodium 10 mg 08/16/24 21:00 08/16/24 21:12 Montelukast 10 Mg Tab PO 10 mg HS CLIVE Administration Naloxone HCl 0.2 mg 08/16/24 15:02 Naloxone 0.4 Mg/Ml 1 Ml Vial IV Q2M PRN Opioid Reversal Ondansetron HCl 4 mg 08/16/24 15:02 Ondansetron 4 Mg/2 Ml Vial IVP Q8HR PRN Nausea And Vomiting Pantoprazole Sodium 40 mg 08/16/24 17:30 08/17/24 08:51 Pantoprazole 40 Mg Tablet PO 40 mg AC-BID CLIVE Administration Intake and Output 08/17/24 08/17/24 08/17/24 06:59 14:59 22:59 Other: Weight 77.111 kg Patient Weight 08/18/24 06:59 Weight 77.111 kg 08/17/24 07:30 08/17/24 07:30
[2024-08-17] MEDS: TORSEMIDE 20 MG TAB PO SCH (16:27)
[2024-08-17] MEDS: LOSARTAN 25 MG TAB PO SCH (16:27)
[2024-08-17] MEDS: CLOPIDOGREL 75 MG TAB PO SCH (16:27)
[2024-08-17 17:00] LABS: Glucose,Whole Blood 164 mg/dL (70-110)
[2024-08-17 20:35] LABS: Glucose,Whole Blood 115 mg/dL (70-110)
--- NOTE | 2024-08-17 21:37 | P.CONS ---
History of Present Illness - Reason for Consult Consult date: 08/17/24 UTI, sepsis Requesting physician: Wang Mix - Chief Complaint Mental status changes x 1 day - History of Present Illness Patient is a 78-year-old female with a past medical history of again for diabetes mellitus hypertension hyperlipidemia atrial fibrillation patient has been brought into the hospital for evaluation of weakness and mental status changes apparently patient has been recently diagnosed with a UTI and has been antibiotic however the patient family was not aware of name of the antibiotics, patient becoming more weak and fatigue did have difficulty urination, some nausea but no vomiting patient denies having any chest pain or shortness of breath occasional cough no sputum production and no fever have recorded at home on presentation to the hospital the patient was afebrile did have 102 low-grade fever of 99 F patient was mildly tachycardic but not hypotensive she is currently on 2 L nasal cannula oxygen patient did have a white count of 10.9 with a left shift BUN and creatinine has been mildly elevated liver enzymes are mildly elevated urine was positive with large leukocyte esterase 161 WBC patient did have a chest x-ray patchy bilateral pleural and parenchymal opacity concerning for multifocal pneumonia patient has been started on daptomycin on the basis of the last urine culture on 05/10/2024 that was a VRE infectious dagmar trinh was consulted for further management of antibiotic therapy patient at the time my evaluation today seem to be doing better as reported by the at the bedside mentation seem to have slightly improved Review of Systems Positive point and negatives has been mentioned in the HPI, complete review of systems was performed and all other systems are negative Past Medical History Past Medical History: Atrial Fibrillation, Diabetes Mellitus, Hyperlipidemia, Hypertension Additional Past Medical History / Comment(s): Sleep Apnea (no machine not working), hx of septicemia, neck, back and shoulder pain, uses cane and rolling walker prn, gout . pt states recent diagnosis of DM 2. History of Any Multi-Drug Resistant Organisms: None Reported Past Surgical History: Adenoidectomy, Bariatric Surgery, Cholecystectomy, Heart Catheterization With Stent, Hernia Repair, Joint Replacement, Tonsillectomy Additional Past Surgical History / Comment(s): GASTRIC SLEEVE (2010- DR MENDEZ), CARPAL TUNNEL MARILYN, CATARACTS, INGUINAL HERNIA, MARILYN TOTAL KNEES, Bilateral TOTAL HIPs, injections in back for spinal stenosis and cervical injections., pain clinic procedures. Past Anesthesia/Blood Transfusion Reactions: No Reported Reaction, Motion Sickness Date of Last Stent Placement:: 11/07/23 Past Psychological History: Anxiety, Depression Smoking Status: Never smoker Past Alcohol Use History: None Reported Past Drug Use History: None Reported Additional Drug Use History / Comment(s): cbd oil in the past. - Past Family History Mother Additional Family Medical History / Comment(s): heart disease Father Family Medical History: Coronary Artery Disease (CAD), CVA/TIA Additional Family Medical History / Comment(s): heart disease Medications and Allergies Home Medications Medication Instructions Recorded Confirmed Type FLUoxetine HCL [PROzac] 60 mg PO HS 08/02/20 08/16/24 History Multivitamins, Thera [Multivitamin 1 tab PO DAILY 08/02/20 08/16/24 History (formulary)] Zafirlukast [Accolate] 20 mg PO BID 08/02/20 08/16/24 History allopurinoL [Zyloprim] 300 mg PO HS 08/02/20 08/16/24 History Apixaban [Eliquis] 5 mg PO BID #60 tab 10/16/23 08/16/24 Rx Furosemide [Lasix] 20 mg PO Q48H tab 03/24/24 08/16/24 Rx Memantine [Namenda] 5 mg PO BID tab 03/24/24 08/16/24 Rx Levothyroxine Sodium [Synthroid] 75 mcg PO DAILY 05/08/24 08/16/24 History Metoprolol Succinate (ER) [Toprol 100 mg PO DAILY 05/08/24 08/16/24 History Xl] Nitroglycerin Sl Tabs [Nitrostat] 0.4 mg SL Q5M PRN 05/08/24 08/16/24 History Bismuth Subsalicylate 524 mg PO Q4H PRN 06/25/24 08/16/24 History [Pepto-Bismol] Clotrimazole/Betameth Cream 1 applic TOPICAL DAILY PRN 06/25/24 08/16/24 History [Lotrisone] Cranberry 1 dose PO DAILY@1200 06/25/24 08/16/24 History L.acidoph,Paracasei, B.lactis 1 cap PO DAILY@1200 06/25/24 08/16/24 History [Probiotic] Pantoprazole Sodium [Protonix] 40 mg PO BID 06/25/24 08/16/24 History Promethazine HCl 12.5 mg PO AC-TID 06/25/24 08/16/24 History metFORMIN HCL [Glucophage] 500 mg PO BID 06/25/24 08/16/24 History Calcium Carbonate [Tums] 500 mg PO QID PRN 08/05/24 08/16/24 History Estradiol Cream [Estrace Cream 1 gm VAGINAL DIRECTED 08/05/24 08/16/24 History 0.01%] Methenamine Hippurate 1 gm PO BID 08/05/24 08/16/24 History Metoprolol Succinate (ER) [Toprol 50 mg PO HS 08/05/24 08/16/24 History Xl] Ondansetron Odt [Zofran Odt] 8 mg PO Q8HR PRN 08/05/24 08/16/24 History Digoxin [Digitek] 125 mcg PO DAILY 08/16/24 08/16/24 History Allergies Allergy/AdvReac Type Severity Reaction Status Date / Time sulfamethoxazole AdvReac Unknown STOMACH Verified 08/16/24 09:26 [From Bactrim] PAIN trimethoprim [From Bactrim] AdvReac Unknown STOMACH Verified 08/16/24 09:26 PAIN spironolactone AdvReac Unknown Verified 08/16/24 09:26 [From Aldactone] HORSE SERUM TETANAS Allergy Severe Anaphylaxis Uncoded 08/16/24 09:26 Novacaine Allergy Anaphylaxis Uncoded 08/16/24 09:26 Physical Exam Vitals: Vital Signs Temp Pulse Pulse Resp BP BP BP 08/17/24 12:49 158/123 08/17/24 08:00 97.5 F L 76 18 140/91 08/17/24 07:40 97.6 F 103 H 20 116/68 08/17/24 06:00 98.1 F 99 20 114/79 08/17/24 04:00 98.2 F 90 18 118/74 08/17/24 01:30 99.0 F 106 H 20 116/77 08/17/24 00:00 87 20 111/73 08/16/24 19:42 124 H 20 145/107 08/16/24 17:00 117 H 18 166/90 08/16/24 16:15 97.8 F 08/16/24 16:10 125 H 18 158/127 08/16/24 16:00 117 H 20 150/137 08/16/24 15:50 117 H 18 164/117 08/16/24 15:00 20 08/16/24 14:56 122 H 18 153/80 Pulse Ox 08/17/24 12:49 08/17/24 08:00 94 L 08/17/24 07:40 96 08/17/24 06:00 97 08/17/24 04:00 99 08/17/24 01:30 98 08/17/24 00:00 98 08/16/24 19:42 96 08/16/24 17:00 94 L 08/16/24 16:15 92 L 08/16/24 16:10 92 L 08/16/24 16:00 93 L 08/16/24 15:50 93 L 08/16/24 15:00 92 L 08/16/24 14:56 89 L Intake and Output 08/16/24 08/17/24 08/17/24 22:59 06:59 14:59 Output Total 1000 Balance -1000 Output: Urine 1000 Other: Weight 77.111 kg GENERAL DESCRIPTION: Elderly female lying in bed, no distress. No tachypnea or accessory muscle of respiration use. HEENT: Shows Pallor , no scleral icterus. Oral mucous membrane is dry. NECK: Trachea central, no thyromegaly. LUNGS: Unlabored breathing. Clear to auscultation anteriorly. No wheeze or crackle. HEART: S1, S2, regular rate and rhythm. No loud murmur ABDOMEN: Soft, no tenderness , guarding or rigidity, no organomegaly EXTREMITIES: No edema of feet. SKIN: No rash, no masses palpable. NEUROLOGICAL: The patient is awake, alert, oriented x2, mood and affect normal. Results CBC & Chem 7: 08/17/24 07:30 08/17/24 07:30 Labs: Abnormal Lab Results - Last 24 Hours (Table) 08/16/24 08/16/24 08/16/24 Range/Units 13:30 17:39 21:09 RBC (3.80-5.40) m/uL MCV (80.0-100.0) fL RDW (11.5-15.5) % Potassium 3.4 L (3.5-5.1) mmol/L Chloride 108 H (98-107) mmol/L Carbon Dioxide (22-30) mmol/L BUN 32 H (7-17) mg/dL Creatinine 1.24 H (0.52-1.04) mg/dL Glucose 151 H (74-99) mg/dL POC Glucose (mg/dL) 128 H 151 H (70-110) mg/dL Magnesium (1.6-2.3) mg/dL AST 42 H (14-36) U/L ALT 54 H (4-34) U/L Total Protein (6.3-8.2) g/dL Albumin (3.5-5.0) g/dL 08/17/24 08/17/24 08/17/24 Range/Units 07:30 07:30 12:16 RBC 3.44 L (3.80-5.40) m/uL MCV 104.5 H (80.0-100.0) fL RDW 17.1 H (11.5-15.5) % Potassium (3.5-5.1) mmol/L Chloride 114 H (98-107) mmol/L Carbon Dioxide 21 L (22-30) mmol/L BUN 33 H (7-17) mg/dL Creatinine 1.25 H (0.52-1.04) mg/dL Glucose (74-99) mg/dL POC Glucose (mg/dL) 126 H (70-110) mg/dL Magnesium 1.4 L (1.6-2.3) mg/dL AST (14-36) U/L ALT 41 H (4-34) U/L Total Protein 5.7 L (6.3-8.2) g/dL Albumin 3.2 L (3.5-5.0) g/dL Assessment and Plan (1) Urinary tract infection Current Visit: Yes Status: Acute Code(s): N39.0 - URINARY TRACT INFECTION, SITE NOT SPECIFIED SNOMED Code(s): 07636863 Plan: 1patient presented to hospital with mental status changes did have a difficult urination positive UA elevated white count, concerning for a symptomatic urinary tract infection with a last urine culture positive for VRE and the patient seemed to have some clinical improvement compared to yesterday on daptomycin may be dealing with the same pathogen 2we will continue the patient daptomycin while waiting for the culture to finalize We will follow on clinical condition and cultures to further adjust medication i f needed Thank you for this consultation we will follow the patient along with you Dictation was produced using [employer] dictation software. please excuse any grammatical, word or spelling errors. Time with Patient: Greater than 30
[2024-08-17] MEDS: ATORVASTATIN 40 MG TAB PO SCH (22:05)
[2024-08-18 04:18] LABS: Anisocytosis Slight; HCT 38.9 % (34.0-46.0); HGB 12.5 gm/dL (11.4-16.0); Hypochromasia Slight; MCH 33.2 pg (25.0-35.0); MCV 103.7 fL (80.0-100.0); Macrocytosis Moderate; Mean Platelet Volume 8.4; Platelet Count 302 k/uL (150-450); RBC 3.76 m/uL (3.80-5.40); RDW 16.3 % (11.5-15.5); WBC 11.8 k/uL (3.8-10.6)
[2024-08-18 04:27] LABS: African American GFR (CKD) 50 (>60 ml/min/1.73 sqM); Anion Gap 10 mmol/L; Blood Urea Nitrogen 30 mg/dL (7-17); Calcium 9.1 mg/dL (8.4-10.2); Carbon Dioxide 22 mmol/L (22-30); Chloride 104 mmol/L (98-107); Glucose 106 mg/dL (74-99); Non-African American GFR(CKD) 43 (>60 ml/min/1.73 sqM); Sodium 136 mmol/L (137-145)
[2024-08-18 04:31] LABS: Magnesium 1.5 mg/dL (1.6-2.3); Potassium 3.1 mmol/L (3.5-5.1)
[2024-08-18 06:33] LABS: Glucose,Whole Blood 105 mg/dL (70-110)
--- NOTE | 2024-08-18 08:07 | XR ---
EXAMINATION TYPE: XR chest 1V portable DATE OF EXAM: 08/18/2024 6:37 AM COMPARISON: 08/17/2024 CLINICAL INDICATION: Female, 78 years old with history of CHF, TECHNIQUE: XR chest 1V portable view(s) obtained. FINDINGS: The heart size is prominent. The pulmonary vasculature is normal. Bilateral perihilar infiltrates are present, greater on the left. Some left lower lobe infiltrate is developing. Correlate for atelectasis and pneumonia. Advanced degenerative changes at the bilateral shoulders IMPRESSION: 1. Worsening bilateral perihilar and traits and left lower lobe infiltrate worse on the left. Conside r atelectasis and pneumonia. [facility], , 08/18/2024 8:04 AM
[2024-08-18] MEDS ORDERED: FUROSEMIDE 10 MG/ML 4 ML VIAL IV SCH (09:00)
[2024-08-18] MEDS: POTASSIUM CHLORIDE ER 20 MEQ TAB.ER PO STA ×2 (09:58→10:00)
[2024-08-18] MEDS: MAGNESIUM SULFATE-D5W PMX 1 GM in DEXTROSE/WATER 1 100ML.BAG IVPB SCH (10:00)
[2024-08-18] MEDS: METOPROLOL SUCCINATE (ER) 100 MG TAB.ER.24H PO SCH ×2 (10:04→20:37)
--- NOTE | 2024-08-18 12:13 | P.PN ---
Subjective Progress Note Date: 08/18/24 78 year old F with PMH of CAD, HFrEF EF 25-30% on 10/2023 Echo, recurrent UTI, DM, Gout, A-Fib, Hypothyroid, Dementia, Gastritis presents to the ED. Son and providing majority of the history. They report confusion, urinary urgency, delirium and restlessness over the past 2 days. Also reports decreased appetite and PO intake over the past 2 days. Patient reports some shortness of breath with ambulation and lower extremity swelling. She was recently seen in the ED on 08/05 for a mechanical fall. In the ED she underwent extensive evaluation. BP 139/86, HR 114, T 98.3F, RR 20, 92% on RA. CBC, CMP significant for WBC 10.9, MCV 103.7, K 3.4, Cl 108, BUN 32, Cr 1.24, glu 151, AST 42, ALT 54. BNP 81409. Lactic acid 2.0. UA large LE. EKG A-Fib with RVR rate of 114, incomplete RBBB. CXR showed bilateral patchy pleural opacities with pleural effusion. Patient was given 1g of Rocephin IV and 2 x 500 cc NS bolus. Admitted for treatment of UTI sepsis. Started on Daptomycin and ID consulted. Also st arted on Lasix IV for systolic CHF exacerbation and Cardiology consulted. 08/18 Patient was seen and examined. Breathing better. HR in the low 100s. CBC and CMP significant for WBC 11.8, RBC 3.76, MCV 103.7, Na 136, K 3.1, BUN 30, Cr 1.21, glu 106. Mag 1.5. UCx growing evelyn so far. BCx neg so far. General: non toxic, no distress, appears at stated age Derm: warm, dry Head: atraumatic, normocephalic, symmetric Eyes: EOMI, no lid lag, anicteric sclera Mouth: no lip lesion, mucus membranes moist Cardiovascular: S1S2 irreg, no murmur, 1+ pitting LE edema Lungs: Decreased BS bilaterally, no rhonchi, no rales , no accessory muscle use Abd: Soft non tender to palpation Neuro: no focal neuro deficits Psych: Lethargic Based on my assessment of this patient, this patient meets a high complexity level of care. Acute metabolic encephalopathy: Fall precautions. Likely due to UTI sepsis. Acute hypoxic respiratory failure secondary to systolic CHF exacerbation: Lasix IV switched to Torsemide 20 mg PO QD by Cardiology. Strict intake and outtake. Daily weights. Echo ordered. Cardio on board. 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 Follow UCx, BCx. Telemetry monitoring. Stop IVF given BP maintaining and h/o CHF. ID on board. Atrial fibrillation with RVR: Metoprolol 100 mg PO BID. K > 4 and Mg > 2. Digoxin 0.125 mg PO QD. Eliquis 5 mg PO BID for AC. Cardio on board. Acute kidney injury on chronic kidney disease: Status post 2 x 500 cc NS bolus. Avoid nephrotoxic meds. Monitor. HypoMag and HypoK: Likely due to Lasix. KCl 60 meq PO x 1. 2g Mag suflate x 1. Transaminitis: Monitor. Dementia: Memantine 5 mg PO BID. CAD: Not of ASA. Lipitor 40 mg PO QHS. Beta marce as above. Cardio on board. Diabetes mellitus: ISS ACHS. Accuchecks ACHS. Hypoglycemic precautions. Gout: Allopurinol 100 mg PO QHS. Hypothyroid: Synthroid 75 mcg PO QD. Gastritis: Protonix 40 mg PO BID. CODE STATUS: NO CODE. DVT Prophylaxis: Elquis GI Prophylaxis: Protonix Designated medical POA if patient is not able to make medical decisions for themselves: , Son and Daughter I have reviewed the following new home sales consultant notes: Cardio, ID. I have reviewed the results of the following tests: CBC, BMP, Mag, UCx, BCx. I have ordered the following tests: Echo pending. CBC and BMP, Mag in the AM. I have discussed the care of this patient with the following independent historian: I have independently interpreted the following test below: Objective - Vital Signs Vital signs: Vital Signs Temp 98.4 F 08/18/24 07:05 Pulse 102 H 08/18/24 07:05 Resp 17 08/18/24 07:05 BP 133/85 08/18/24 07:05 Pulse Ox 96 08/18/24 07:05 FiO2 Intake & Output 08/17/24 08/18/24 08/18/24 18:59 06:59 18:59 Intake Total 200 Output Total 800 3425 Balance -600 -3425 Weight 77.111 kg Intake: Oral 200 Output: Urine 800 3425 Other: Voiding Method External Catheter - Labs CBC & Chem 7: 08/18/24 03:56 08/18/24 03:56 Labs: Abnormal Lab Results - Last 24 Hours (Table) 08/17/24 08/17/24 08/17/24 Range/Units 12:16 16:59 20:32 WBC (3.8-10.6) k/uL RBC (3.80-5.40) m/uL MCV (80.0-100.0) fL RDW (11.5-15.5) % Sodium (137-145) mmol/L Potassium (3.5-5.1) mmol/L BUN (7-17) mg/dL Creatinine (0.52-1.04) mg/dL Glucose (74-99) mg/dL POC Glucose (mg/dL) 126 H 164 H 115 H (70-110) mg/dL Magnesium (1.6-2.3) mg/dL 08/18/24 08/18/24 Range/Units 03:56 03:56 WBC 11.8 H (3.8-10.6) k/uL RBC 3.76 L (3.80-5.40) m/uL MCV 103.7 H (80.0-100.0) fL RDW 16.3 H (11.5-15.5) % Sodium 136 L (137-145) mmol/L Potassium 3.1 L (3.5-5.1) mmol/L BUN 30 H (7-17) mg/dL Creatinine 1.21 H (0.52-1.04) mg/dL Glucose 106 H (74-99) mg/dL POC Glucose (mg/dL) (70-110) mg/dL Magnesium 1.5 L (1.6-2.3) mg/dL Microbiology - Last 24 Hours (Table) 08/16/24 13:30 Blood Culture - Preliminary Blood 08/16/24 12:37 Urine Culture - Preliminary Urine,Clean Catch Evelyn albicans
--- NOTE | 2024-08-18 12:18 | CA ---
Transthoracic Echo Report Name: Trisha Brito Age: 78 Gender: F : 1945 Exam Date: 08/18/2024 10:59 Exam Location: [place] [facility] Ht (in): 65 Wt (lb): 170 Ordering Physician: Wang Mix MD Attending/Referring Phys: Shearing Machine Operator Jenn Amaro RDCS Procedure CPT: Indications: chf Cardiac Hx: Technical Quality: Fair Contrast 1: Total Dose (mL): Contrast 2: Total Dose (mL): MEASUREMENTS (Male / Female) Normal Values 2D ECHO LV Diastolic Diameter PLAX 4.0 cm 4.2 - 5.9 / 3.9 - 5.3 cm LV Systolic Diameter PLAX 3.2 cm IVS Diastolic Thickness 1.0 cm 0.6 - 1.0 / 0.6 - 0.9 cm LVPW Diastolic Thickness 1.1 cm 0.6 - 1.0 / 0.6 - 0.9 cm LV Relative Wall Thickness 0.5 RV Internal Dim ED PLAX 2.7 cm LA Systolic Diameter LX 4.1 cm 3.0 - 4.0 / 2.7 - 3.8 cm LV Diastolic Volume MOD 4C 47.9 cm??? LV Systolic Volume MOD 4C 20.0 cm??? LV Ejection Fraction MOD 4C 58.3 % LV Cardiac Index MOD 4C 1571.7 cm???/min???m??? LV Diastolic Length 4C 6.4 cm LV Systolic Length 4C 6.2 cm M-MODE Aortic Root Diameter MM 3.1 cm LA Systolic Diameter MM 4.0 cm LA Ao Ratio MM 1.3 AV Cusp Separation MM 1.4 cm DOPPLER AV Peak Velocity 132.4 cm/s AV Peak Gradient 7.0 mmHg AV Mean Velocity 93.3 cm/s AV Mean Gradient 3.9 mmHg AV Velocity Time Integral 24.5 cm AI Peak Velocity 371.7 cm/s AI Peak Gradient 55.3 mmHg AI Pressure Half Time 782.3 ms MV E' Velocity 10.1 cm/s TR Peak Velocity 357.8 cm/s TR Peak Gradient 51.2 mmHg Right Ventricular Systolic Press 61.3 mmHg FINDINGS Left Ventricle Left ventricular ejection fraction is estimated at 50-55 %. Mildly increased posterior wall thickness. No obvious regional wall motion abnormalities. Left ventricular cavity size normal. Mildly reduced global left ventricular systolic function. Right Ventricle Severe right ventricular dilatation. Severe pulmonary hypertension. Right ventricular systolic pressure estimated at 61 mmHg. Right Atrium Severe right atrial dilatation. Left Atrium Moderate left atrial dilatation. Mitral Valve Mitral valve thickened. Moderate mitral regurgitation. No mitral stenosis. Moderate mitral annular calcification. Aortic Valve Trileaflet aortic valve. [id number] aortic regurgitation. No aortic stenosis. Diffuse thickening (sclerosis) of the aortic valve cusps without reduced excursion. Tricuspid Valve Structurally normal tricuspid valve. [id number] tricuspid regurgitation. Pulmonic Valve Structurally normal pulmonic valve. Trace pulmonic regurgitation. No pulmonic stenosis. Pericardium Small pericardial effusion. Aorta Normal size aortic root and proximal ascending aorta. CONCLUSIONS Normal LV systolic function Moderate mitral regurgitation Mild to moderate aortic regurgitation Severe pulmonary hypertension Dilated RV Trace pericardial effusion Previewed by: Dr. Wiley Moreira MD (Electronically Signed) Final Date: 18 August 2024 12:17
[2024-08-18 12:22] LABS: Glucose,Whole Blood 192 mg/dL (70-110)
--- NOTE | 2024-08-18 12:26 | P.PN ---
Subjective Progress Note Date: 08/18/24 HISTORY OF PRESENTING ILLNESS With past medical history of persistent atrial fibrillation, dilated cardiom yopathy EF 25% coronary artery disease with PCI, moderate mitral regurgitation. She was last in hospital in February 2024 with symptoms of altered mental status and concerns of possible UTI. Currently she is in the hospital with a similar presentation of altered mental status and concerns of UTI. She is also in mild heart failure exacerbation with elevated NT proBNP. She is also noticed to be in atrial fibrillation with RVR on admission. She denies any any chest pain chest pressure. She is a poor historian because of impaired hearing 08/18/2024 Patient is seen and examined. Patient is somewhat tachycardic this morning. Heart rate is running between 101 19, blood pressure 133/85, pulse ox 96% on 2 L. No fluid overload, euvolemic. No lower extremity edema. WBC 11.8, hemoglobin 12.5. Potassium 3.1, BUN 30 and creatinine 1.21. PHYSICAL EXAMINATION Neck: Brisk carotid upstroke, elevated JVD Lungs: Clear to auscultation. Heart: Irregularly irregular pulse, systolic murmur audible Abdomen: Soft nontender, positive bowel sounds. Extremities: No significant swelling in bilateral lower extremity Neuro: Alert, oriented, no focal deficits. Detailed neuro exam was not performed. ASSESSMENT Acute HFrEF exacerbation Cardiomyopathy , mostly nonischemic cardiomyopathy competent. Moderate mitral regurgitation Persistent atrial fibrillation CAD status post PCI October 2023 Metabolic encephalopathy and altered mental status UTI PLAN Continue current cardiac medications: Eliquis 5 mg twice daily, atorvastatin 40 mg at bedtime, Plavix 75 mg daily, digoxin 125 mcg daily, losartan 12.5 mg daily, torsemide 20 mg daily Increase metoprolol succinate to 150 mg twice daily Discontinue Cardizem because of low LVEF Cannot add Farxiga because of UTIs No Aldactone as patient has allergic reaction Nurse practitioner note has been reviewed, I agree with documented findings and plan of care. Patient was seen and examined. Objective - Vital Signs Vital signs: Vital Signs Temp 98.4 F 08/18/24 07:05 Pulse 102 H 08/18/24 07:05 Resp 17 08/18/24 07:05 BP 133/85 08/18/24 07:05 Pulse Ox 96 08/18/24 07:05 FiO2 Intake & Output 08/17/24 08/18/24 08/18/24 18:59 06:59 18:59 Intake Total 200 Output Total 800 3425 Balance -600 -3425 Weight 77.111 kg Intake: Oral 200 Output: Urine 800 3425 Other: Voiding Method External Catheter - Labs CBC & Chem 7: 08/18/24 03:56 08/18/24 03:56 Labs: Abnormal Lab Results - Last 24 Hours (Table) 08/17/24 08/17/24 08/17/24 Range/Units 12:16 16:59 20:32 WBC (3.8-10.6) k/uL RBC (3.80-5.40) m/uL MCV (80.0-100.0) fL RDW (11.5-15.5) % Sodium (137-145) mmol/L Potassium (3.5-5.1) mmol/L BUN (7-17) mg/dL Creatinine (0.52-1.04) mg/dL Glucose (74-99) mg/dL POC Glucose (mg/dL) 126 H 164 H 115 H (70-110) mg/dL Magnesium (1.6-2.3) mg/dL 08/18/24 08/18/24 Range/Units 03:56 03:56 WBC 11.8 H (3.8-10.6) k/uL RBC 3.76 L (3.80-5.40) m/uL MCV 103.7 H (80.0-100.0) fL RDW 16.3 H (11.5-15.5) % Sodium 136 L (137-145) mmol/L Potassium 3.1 L (3.5-5.1) mmol/L BUN 30 H (7-17) mg/dL Creatinine 1.21 H (0.52-1.04) mg/dL Glucose 106 H (74-99) mg/dL POC Glucose (mg/dL) (70-110) mg/dL Magnesium 1.5 L (1.6-2.3) mg/dL Microbiology - Last 24 Hours (Table) 08/16/24 13:30 Blood Culture - Preliminary Blood 08/16/24 12:37 Urine Culture - Preliminary Urine,Clean Catch Evelyn albicans
[2024-08-18] MEDS: ZINC OXIDE PASTE (Z-GUARD) 1 APPLIC TOPICAL PRN (12:34)
--- NOTE | 2024-08-18 12:35 | P.PN ---
Subjective Progress Note Date: 08/18/24 Principal diagnosis: Reason for follow-up is a urinary tract infection Patient is a 78-year-old female with a past medical history of again for diabetes mellitus hypertension hyperlipidemia atrial fibrillation patient has been brought into the hospital for evaluation of weakness and mental status changes and elicited with outpatient setting for UTI concerning for UTI failing outpatient treatment. On today's evaluation that is 08/18/2024,the patient denies any fever or any chills, patient is breathing comfortably on 2 L nasal cannula oxygen the patient denies chest pain shortness of breath and no significant cough, patient denies abdominal pain, no nausea vomiting or diarrhea. Patient white count is 11.8, creatinine is 1.21 urine is growing Evelyn albicans blood cultures are pending Objective - Vital Signs Vital signs: Vital Signs Temp 98.4 F 08/18/24 07:05 Pulse 102 H 08/18/24 07:05 Resp 17 08/18/24 07:05 BP 133/85 08/18/24 07:05 Pulse Ox 96 08/18/24 07:05 FiO2 Intake & Output 08/17/24 08/18/24 08/18/24 18:59 06:59 18:59 Intake Total 200 120 Output Total 800 3425 Balance -600 -3425 120 Weight 77.111 kg Intake: Oral 200 120 Output: Urine 800 3425 Other: Voiding Method External Catheter External Catheter - Exam GENERAL DESCRIPTION: An elderly female lying in bed in no distress RESPIRATORY SYSTEM: Unlabored breathing , decreased breath sounds at bases HEART: S1 S2 regular rate and rhythm , ABDOMEN: Soft , no tenderness EXTREMITIES: No edema feet - Labs CBC & Chem 7: 08/18/24 03:56 08/18/24 03:56 Labs: Abnormal Lab Results - Last 24 Hours (Table) 08/17/24 08/17/24 08/18/24 Range/Units 16:59 20:32 03:56 WBC 11.8 H (3.8-10.6) k/uL RBC 3.76 L (3.80-5.40) m/uL MCV 103.7 H (80.0-100.0) fL RDW 16.3 H (11.5-15.5) % Sodium (137-145) mmol/L Potassium (3.5-5.1) mmol/L BUN (7-17) mg/dL Creatinine (0.52-1.04) mg/dL Glucose (74-99) mg/dL POC Glucose (mg/dL) 164 H 115 H (70-110) mg/dL Magnesium (1.6-2.3) mg/dL 08/18/24 08/18/24 Range/Units 03:56 12:20 WBC (3.8-10.6) k/uL RBC (3.80-5.40) m/uL MCV (80.0-100.0) fL RDW (11.5-15.5) % Sodium 136 L (137-145) mmol/L Potassium 3.1 L (3.5-5.1) mmol/L BUN 30 H (7-17) mg/dL Creatinine 1.21 H (0.52-1.04) mg/dL Glucose 106 H (74-99) mg/dL POC Glucose (mg/dL) 192 H (70-110) mg/dL Magnesium 1.5 L (1.6-2.3) mg/dL Microbiology - Last 24 Hours (Table) 08/16/24 13:30 Blood Culture - Preliminary Blood 08/16/24 12:37 Urine Culture - Preliminary Urine,Clean Catch Evelyn albicans Assessment and Plan (1) Urinary tract infection Current Visit: Yes Status: Acute Code(s): N39.0 - URINARY TRACT INFECTION, SITE NOT SPECIFIED SNOMED Code(s): 76607519 Plan: 1patient presented to hospital with mental status changes did have a difficult urination positive UA elevated white count, concerning for a symptomatic urinary tract infection with a last urine culture positive for VRE and the patient seemed to have some clinical improvement compared to yesterday on daptomycin may be dealing with the same pathogen 2urine is currently growing Evelyn albicans will add Diflucan and see response Dictation was produced using [employer] software. please excuse any grammatical, word or spelling errors.
[2024-08-18] MEDS: FLUCONAZOLE 100 MG TAB PO SCH (13:21)
[2024-08-18 16:50] LABS: Glucose,Whole Blood 267 mg/dL (70-110)
[2024-08-18 20:12] LABS: Glucose,Whole Blood 142 mg/dL (70-110)
[2024-08-19 04:04] LABS: African American GFR (CKD) 58 (>60 ml/min/1.73 sqM); Anion Gap 6 mmol/L; Blood Urea Nitrogen 27 mg/dL (7-17); Calcium 8.3 mg/dL (8.4-10.2); Carbon Dioxide 23 mmol/L (22-30); Chloride 106 mmol/L (98-107); Glucose 106 mg/dL (74-99); Magnesium 1.7 mg/dL (1.6-2.3); Non-African American GFR(CKD) 50 (>60 ml/min/1.73 sqM); Potassium 3.2 mmol/L (3.5-5.1); Sodium 135 mmol/L (137-145)
[2024-08-19 06:41] LABS: Glucose,Whole Blood 117 mg/dL (70-110)
[2024-08-19 08:23] LABS: Basophils # (A) 0.04 X 10*3/uL (0.00-0.10); Basophils % (A) 0.5 %; Eosinophils % (A) 1.2 %; HCT 32.6 % (37.2-46.3); HGB 10.5 g/dL (12.0-15.0); Lymphocytes # (A) 0.99 X 10*3/uL (0.90-5.00); Lymphocytes % (A) 11.6 %; MCH 33.1 pg (27.0-32.0); MCHC 32.2 g/dL (32.0-37.0); MCV 102.8 FL (80.0-97.0); Mean Platelet Volume 12.3 FL (9.5-12.2); Monocytes # (A) 0.84 X 10*3/uL (0.20-1.00); Monocytes % (A) 9.8 %; NRBC Per 100 WBC 0 X 10*3/uL (0.00-0.01); Platelet Count 286 X 10*3/uL (140-440); RBC 3.17 X 10*6/uL (4.10-5.20); RDW 16.8 % (11.5-14.5); WBC 8.55 X 10*3/uL (4.50-10.00)
[2024-08-19] MEDS: POTASSIUM CHLORIDE ER 20 MEQ TAB.ER PO STA (10:59)
--- NOTE | 2024-08-19 11:15 | P.PN ---
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 She was last in hospital in February 2024 with symptoms of altered mental status and concerns of possible UTI. Currently she is in the hospital with a similar presentation of altered mental status and concerns of UTI. She is also in mild heart failure exacerbation with elevated NT proBNP. She is also noticed to be in atrial fibrillation with RVR on admission. She denies any any chest pain chest pressure. She is a poor historian because of impaired hearing 08/18/2024 Patient is seen and examined. Patient is somewhat tachycardic this morning. Heart rate is running between 101 119, blood pressure 133/85, pulse ox 96% on 2 L. No fluid overload, euvolemic. No lower extremity edema. WBC 11.8, hemoglobin 12.5. Potassium 3.1, BUN 30 and creatinine 1.21. 08/19/2024 Patient is seen and examined. Yesterday metoprolol succinate was increased to 150 mg twice daily due to tachycardia. Heart rate is now 87-103. Blood pressure 137/96, pulse ox 100% on 2 L nasal cannula. Repeat blood work reveals hemoglobin 10.5. Potassium 3.2 and was replaced, BUN 27 creatinine 1.07. Patient is on all oral medications. PHYSICAL EXAMINATION Neck: Brisk carotid upstroke, elevated JVD Lungs: Clear to auscultation. Heart: Irregularly irregular pulse, systolic murmur audible Abdomen: Soft nontender, positive bowel sounds. Extremities: No significant swelling in bilateral lower extremity Neuro: Alert, oriented, no focal deficits. Detailed neuro exam was not performed. ASSESSMENT Acute HFrEF exacerbation Cardiomyopathy , mostly nonischemic cardiomyopathy competent. Moderate mitral regurgitation Persistent atrial fibrillation CAD status post PCI October 2023 Metabolic encephalopathy and altered mental status UTI PLAN Continue current cardiac medications: Eliquis 5 mg twice daily, atorvastatin 40 mg at bedtime, Plavix 75 mg daily, digoxin 125 mcg daily, losartan 12.5 mg daily, torsemide 20 mg daily Continue the increased dose of metoprolol succinate 150 mg twice daily Discontinue Cardizem because of low LVEF Cannot add Farxiga because of UTIs No Aldactone as patient has allergic reaction Cardiology will sign off this case and follow on an as-needed basis. Please reconsult for any new concerns. Patient may follow-up in the office in one to 2 weeks. Nurse practitioner note has been reviewed, I agree with documented findings and plan of care. Patient was seen and examined. Objective - Vital Signs Vital signs: Vital Signs Temp 97.5 F L 08/19/24 07:45 Pulse 103 H 08/19/24 07:45 Resp 18 08/19/24 07:45 BP 137/96 08/19/24 07:45 Pulse Ox 100 08/19/24 07:45 FiO2 Intake & Output 08/18/24 08/19/24 08/19/24 18:59 06:59 18:59 Intake Total 240 Output Total 1000 Balance 240 -1000 Intake: Oral 240 Output: Urine 1000 Other: Voiding Method Bedside Commode Bedside Commode External Catheter # Voids 3 2 # Bowel Movements 3 - Labs CBC & Chem 7: 08/19/24 02:30 08/19/24 02:30 Labs: Abnormal Lab Results - Last 24 Hours (Table) 08/18/24 08/18/24 08/18/24 Range/Units 12:20 16:49 20:10 RBC (4.10-5.20) X 10*6/uL Hgb (12.0-15.0) g/dL Hct (37.2-46.3) % MCV (80.0-97.0) FL MCH (27.0-32.0) pg RDW (11.5-14.5) % MPV (9.5-12.2) FL Immature Gran # (0.00-0.04) X 10*3/uL Sodium (137-145) mmol/L Potassium (3.5-5.1) mmol/L BUN (7-17) mg/dL Creatinine (0.52-1.04) mg/dL Glucose (74-99) mg/dL POC Glucose (mg/dL) 192 H 267 H 142 H (70-110) mg/dL Calcium (8.4-10.2) mg/dL 08/19/24 08/19/24 08/19/24 Range/Units 02:30 02:30 06:39 RBC 3.17 L (4.10-5.20) X 10*6/uL Hgb 10.5 L (12.0-15.0) g/dL Hct 32.6 L (37.2-46.3) % MCV 102.8 H (80.0-97.0) FL MCH 33.1 H (27.0-32.0) pg RDW 16.8 H (11.5-14.5) % MPV 12.3 H (9.5-12.2) FL Immature Gran # 0.08 H (0.00-0.04) X 10*3/uL Sodium 135 L (137-145) mmol/L Potassium 3.2 L (3.5-5.1) mmol/L BUN 27 H (7-17) mg/dL Creatinine 1.07 H (0.52-1.04) mg/dL Glucose 106 H (74-99) mg/dL POC Glucose (mg/dL) 117 H (70-110) mg/dL Calcium 8.3 L (8.4-10.2) mg/dL Microbiology - Last 24 Hours (Table) 08/16/24 13:30 Blood Culture - Preliminary Blood 08/16/24 12:37 Urine Culture - Final Urine,Clean Catch Evelyn albicans Escherichia coli
[2024-08-19 11:22] LABS: Glucose,Whole Blood 121 mg/dL (70-110)
--- NOTE | 2024-08-19 13:01 | P.PN ---
Subjective Progress Note Date: 08/19/24 Principal diagnosis: Reason for follow-up is a urinary tract infection Patient is a 78-year-old female with a past medical history of again for diabetes mellitus hypertension hyperlipidemia atrial fibrillation patient has been brought into the hospital for evaluation of weakness and mental status changes and elicited with outpatient setting for UTI concerning for UTI failing outpatient treatment. On today's evaluation that is 08/19/2024,the patient remains to be afebrile, patient is on 2 L nasal cannula supplemental oxygen, the patient is slightly lethargic today and did not answer any question no vomiting or diarrhea has been reported by the nursing staff. Patient white count is 8.55, creatinine 1.07 urine is now also growing E. coli in addition to the Evelyn albicans Objective - Vital Signs Vital signs: Vital Signs Temp 97.5 F L 08/19/24 07:45 Pulse 103 H 08/19/24 07:45 Resp 18 08/19/24 07:45 BP 137/96 08/19/24 07:45 Pulse Ox 100 08/19/24 07:45 FiO2 Intake & Output 08/18/24 08/19/24 08/19/24 18:59 06:59 18:59 Intake Total 240 120 Output Total 1000 Balance 240 -1000 120 Intake: Oral 240 120 Output: Urine 1000 Other: Voiding Method Bedside Commode Bedside Commode External Catheter # Voids 3 2 1 # Bowel Movements 3 1 - Exam GENERAL DESCRIPTION: An elderly female lying in bed in no distress RESPIRATORY SYSTEM: Unlabored breathing , decreased breath sounds at bases HEART: S1 S2 regular rate and rhythm , ABDOMEN: Soft , no tenderness EXTREMITIES: No edema feet - Labs CBC & Chem 7: 08/19/24 02:30 08/19/24 02:30 Labs: Abnormal Lab Results - Last 24 Hours (Table) 08/18/24 08/18/24 08/19/24 Range/Units 16:49 20:10 02:30 RBC (4.10-5.20) X 10*6/uL Hgb (12.0-15.0) g/dL Hct (37.2-46.3) % MCV (80.0-97.0) FL MCH (27.0-32.0) pg RDW (11.5-14.5) % MPV (9.5-12.2) FL Immature Gran # (0.00-0.04) X 10*3/uL Sodium 135 L (137-145) mmol/L Potassium 3.2 L (3.5-5.1) mmol/L BUN 27 H (7-17) mg/dL Creatinine 1.07 H (0.52-1.04) mg/dL Glucose 106 H (74-99) mg/dL POC Glucose (mg/dL) 267 H 142 H (70-110) mg/dL Calcium 8.3 L (8.4-10.2) mg/dL 08/19/24 08/19/24 08/19/24 Range/Units 02:30 06:39 11:20 RBC 3.17 L (4.10-5.20) X 10*6/uL Hgb 10.5 L (12.0-15.0) g/dL Hct 32.6 L (37.2-46.3) % MCV 102.8 H (80.0-97.0) FL MCH 33.1 H (27.0-32.0) pg RDW 16.8 H (11.5-14.5) % MPV 12.3 H (9.5-12.2) FL Immature Gran # 0.08 H (0.00-0.04) X 10*3/uL Sodium (137-145) mmol/L Potassium (3.5-5.1) mmol/L BUN (7-17) mg/dL Creatinine (0.52-1.04) mg/dL Glucose (74-99) mg/dL POC Glucose (mg/dL) 117 H 121 H (70-110) mg/dL Calcium (8.4-10.2) mg/dL Microbiology - Last 24 Hours (Table) 08/16/24 13:30 Blood Culture - Preliminary Blood 08/16/24 12:37 Urine Culture - Final Urine,Clean Catch Evelyn albicans Escherichia coli Assessment and Plan (1) Urinary tract infection Current Visit: Yes Status: Acute Code(s): N39.0 - URINARY TRACT INFECTION, SITE NOT SPECIFIED SNOMED Code(s): 12037098 Plan: 1patient presented to hospital with mental status changes did have a difficult urination positive UA elevated white count, concerning for a symptomatic urinary tract infection with a last urine culture positive for VRE 2urine this admission initially grew Evelyn albicans for which Diflucan was added and is now also growing E. coli we will add Rocephin and see clinical response Dictation was produced using [employer] dictation software. please excuse any grammatical, word or spelling errors. Time with Patient: Less than 30
--- NOTE | 2024-08-19 13:13 | P.PN ---
Subjective Progress Note Date: 08/19/24 Hospital course 78 year old F with PMH of CAD, HFrEF EF 25-30% on 10/2023 Echo, recurrent UTI, DM, Gout, A-Fib, Hypothyroid, Dementia, Gastritis presents to the ED. Son and providing majority of the history. They report confusion, urinary urgency, delirium and restlessness over the past 2 days. Also reports decreased appetite and PO intake over the past 2 days. Patient reports some shortness of breath with ambulation and lower extremity swelling. She was recently seen in the ED on 08/05 for a mechanical fall. In the ED she underwent extensive evaluation. BP 139/86, HR 114, T 98.3F, RR 20, 92% on RA. CBC, CMP significant for WBC 10.9, MCV 103.7, K 3.4, Cl 108, BUN 32, Cr 1.24, glu 151, AST 42, ALT 54. BNP 70048. Lactic acid 2.0. UA large LE. EKG A-Fib with RVR rate of 114, incomplete RBBB. CXR showed bilateral patchy pleural opacities with pleural effusion. Patient was given 1g of Rocephin IV and 2 x 500 cc NS bolus. Admitted for treatment of UTI sepsis. Started on Daptomycin and ID consulted. Also started on Lasix IV for systolic CHF exacerbation and Cardiology consulted. Patient's urine culture grew pansensitive E. coli so patient was switched over to IV Rocephin. Cardiology switch the patient to torsemide 20 mg daily. Cardiology then signed off. Patient seen this morning. Patient is a poor historian secondary to confusion. Patient is AO x 2. She is answering questions slowly. She is following commands. Physical exam General examination - Alert and Oriented 2 in NAD Heart - + S1S2 no murmurs Lungs -diminished breath sounds bilaterally Abdomen soft NT ND +ve BS Extremities - No edema [employer] - Moving all 4 extremities spontaneously Psych -patient appears confused Assessment and plan Acute metabolic encephalopathy UTI Sepsis on admission I reviewed patient's urine culture that grew pansensitive E. coli I switch patient to IV Rocephin 1 g daily WBC normalized at 8.55 Acute hypoxic respiratory failure Acute on chronic systolic heart failure Cardiology started the patient on torsemide 20 mg daily I reviewed cardiology note and they signed off I reviewed echocardiogram that shows normal LV function and mild to moderate aortic regurgitation and moderate MR and severe pulmonary hypertension. Patient currently satting 100% on 2 L nasal cannula Will try to wean patient off oxygen Hypokalemia Potassium this morning is 3.2 so we will order for 60 mg of potassium chloride Atrial fibrillation with RVR Cardiology increased the patient's metoprolol at 150 mg p.o. twice daily Heart rate is controlled Continue with digoxin 0.125 mg p.o. daily and Eliquis 5 mg p.o. twice daily Dementia Continue with memantine 5 mg p.o. twice daily Coronary disease Continue Lipitor 40 mg at bedtime and beta-marce Diabetes mellitus Sliding scale insulin Gout Continue allopurinol 100 mg p.o. at bedtime Hypothyroidism Continue Synthroid 75 mcg p.o. daily Gastritis Continue Protonix 40 mg p.o. twice daily DVT prophylaxis: Isael I discussed with the who states that his is much weaker than her baseline. is not sure if he wants her to go to alf facility. He states that he will discuss it with his daughters. I did consult PT OT. Objective - Vital Signs Vital signs: Vital Signs Temp 97.5 F L 08/19/24 07:45 Pulse 103 H 08/19/24 07:45 Resp 18 08/19/24 07:45 BP 137/96 08/19/24 07:45 Pulse Ox 100 08/19/24 07:45 FiO2 Intake & Output 08/18/24 08/19/24 08/19/24 18:59 06:59 18:59 Intake Total 240 120 Output Total 1000 Balance 240 -1000 120 Intake: Oral 240 120 Output: Urine 1000 Other: Voiding Method Bedside Commode Bedside Commode External Catheter # Voids 3 2 1 # Bowel Movements 3 1 - Labs CBC & Chem 7: 08/19/24 02:30 08/19/24 02:30 Labs: Abnormal Lab Results - Last 24 Hours (Table) 08/18/24 08/18/24 08/19/24 Range/Units 16:49 20:10 02:30 RBC (4.10-5.20) X 10*6/uL Hgb (12.0-15.0) g/dL Hct (37.2-46.3) % MCV (80.0-97.0) FL MCH (27.0-32.0) pg RDW (11.5-14.5) % MPV (9.5-12.2) FL Immature Gran # (0.00-0.04) X 10*3/uL Sodium 135 L (137-145) mmol/L Potassium 3.2 L (3.5-5.1) mmol/L BUN 27 H (7-17) mg/dL Creatinine 1.07 H (0.52-1.04) mg/dL Glucose 106 H (74-99) mg/dL POC Glucose (mg/dL) 267 H 142 H (70-110) mg/dL Calcium 8.3 L (8.4-10.2) mg/dL 08/19/24 08/19/24 08/19/24 Range/Units 02:30 06:39 11:20 RBC 3.17 L (4.10-5.20) X 10*6/uL Hgb 10.5 L (12.0-15.0) g/dL Hct 32.6 L (37.2-46.3) % MCV 102.8 H (80.0-97.0) FL MCH 33.1 H (27.0-32.0) pg RDW 16.8 H (11.5-14.5) % MPV 12.3 H (9.5-12.2) FL Immature Gran # 0.08 H (0.00-0.04) X 10*3/uL Sodium (137-145) mmol/L Potassium (3.5-5.1) mmol/L BUN (7-17) mg/dL Creatinine (0.52-1.04) mg/dL Glucose (74-99) mg/dL POC Glucose (mg/dL) 117 H 121 H (70-110) mg/dL Calcium (8.4-10.2) mg/dL Microbiology - Last 24 Hours (Table) 08/16/24 13:30 Blood Culture - Preliminary Blood 08/16/24 12:37 Urine Culture - Final Urine,Clean Catch Evelyn albicans Escherichia coli
[2024-08-19 16:41] LABS: Glucose,Whole Blood 306 mg/dL (70-110)
[2024-08-19 20:30] LABS: Glucose,Whole Blood 107 mg/dL (70-110)
[2024-08-20 06:35] LABS: Glucose,Whole Blood 96 mg/dL (70-110)
[2024-08-20 08:29] LABS: Basophils # (A) 0.07 X 10*3/uL (0.00-0.10); Basophils % (A) 1.1 %; Eosinophils # (A) 0.28 X 10*3/uL (0.04-0.35); Eosinophils % (A) 4.2 %; HCT 36.7 % (37.2-46.3); HGB 11.6 g/dL (12.0-15.0); Lymphocytes # (A) 1.18 X 10*3/uL (0.90-5.00); Lymphocytes % (A) 17.8 %; MCH 33.1 pg (27.0-32.0); MCHC 31.6 g/dL (32.0-37.0); MCV 104.9 FL (80.0-97.0); Mean Platelet Volume 12.2 FL (9.5-12.2); Monocytes # (A) 0.69 X 10*3/uL (0.20-1.00); Monocytes % (A) 10.4 %; NRBC Per 100 WBC 0 X 10*3/uL (0.00-0.01); Neutrophils # (A) 4.34 X 10*3/uL (1.80-7.70); Neutrophils % (A) 65.6 %; Platelet Count 306 X 10*3/uL (140-440); RDW 16.8 % (11.5-14.5); WBC 6.62 X 10*3/uL (4.50-10.00)
[2024-08-20 08:49] LABS: Blood Urea Nitrogen 32.8 mg/dL (9.0-27.0); Calcium 8.8 mg/dL (8.7-10.3); Chloride 105 mmol/L (96-109); Glucose 86 mg/dL (70-110); Magnesium 1.7 mg/dL (1.5-2.4); Potassium 4.3 mmol/L (3.5-5.5); Sodium 142 mmol/L (135-145)
--- NOTE | 2024-08-20 11:50 | P.PN ---
Subjective Progress Note Date: 08/20/24 Hospital course 78 year old F with PMH of CAD, HFrEF EF 25-30% on 10/2023 Echo, recurrent UTI, DM, Gout, A-Fib, Hypothyroid, Dementia, Gastritis presents to the ED. Son and providing majority of the history. They report confusion, urinary urgency, delirium and restlessness over the past 2 days. Also reports decreased appetite and PO intake over the past 2 days. Patient reports some shortness of breath with ambulation and lower extremity swelling. She was recently seen in the ED on 08/05 for a mechanical fall. In the ED she underwent extensive evaluation. BP 139/86, HR 114, T 98.3F, RR 20, 92% on RA. CBC, CMP significant for WBC 10.9, MCV 103.7, K 3.4, Cl 108, BUN 32, Cr 1.24, glu 151, AST 42, ALT 54. BNP 83433. Lactic acid 2.0. UA large LE. EKG A-Fib with RVR rate of 114, incomplete RBBB. CXR showed bilateral patchy pleural opacities with pleural effusion. Patient was given 1g of Rocephin IV and 2 x 500 cc NS bolus. Admitted for treatment of UTI sepsis. Started on Daptomycin and ID consulted. Also started on Lasix IV for systolic CHF exacerbation and Cardiology consulted. Patient's urine culture grew pansensitive E. coli so patient was switched over to IV Rocephin. Cardiology switch the patient to torsemide 20 mg daily. Cardiology then signed off. Patient seen this morning. She is a poor historian due to underlying dementia. She denies any acute complaints. No other acute issues overnight. Physical exam General examination - Alert and Oriented 2 in NAD Heart - + S1S2 no murmurs Lungs -diminished breath sounds bilaterally Abdomen soft NT ND +ve BS Extremities - No edema [employer]GER - Moving all 4 extremities spontaneously Psych -patient appears confused Assessment and plan Acute metabolic encephalopathy UTI Sepsis on admission I reviewed patient's urine culture that grew pansensitive E. coli I switch patient to IV Rocephin 1 g daily WBC normalized at 8.55 Acute hypoxic respiratory failure Acute on chronic systolic heart failure Cardiology started the patient on torsemide 20 mg daily I reviewed cardiology note and they signed off I reviewed echocardiogram that shows normal LV function and mild to moderate aortic regurgitation and moderate MR and severe pulmonary hypertension. This morning patient is 97% on room air Hypokalemia repleted Atrial fibrillation with RVR Cardiology increased the patient's metoprolol at 150 mg p.o. twice daily Heart rate is controlled Continue with digoxin 0.125 mg p.o. daily and Eliquis 5 mg p.o. twice daily Dementia Continue with memantine 5 mg p.o. twice daily Coronary disease Continue Lipitor 40 mg at bedtime and beta-marce Diabetes mellitus Sliding scale insulin Gout Continue allopurinol 100 mg p.o. at bedtime Hypothyroidism Continue Synthroid 75 mcg p.o. daily Gastritis Continue Protonix 40 mg p.o. twice daily DVT prophylaxis: Eliquis Patient stable for discharge. Discussed with shoe parts caser who said patient has a bed at [facility]. Awaiting for prior authorization. Anticipate patient will be discharged today. Objective - Vital Signs Vital signs: Vital Signs Temp 97.5 F L 08/20/24 07:20 Pulse 67 08/20/24 07:20 Resp 16 08/20/24 09:00 BP 143/87 08/20/24 07:20 Pulse Ox 97 08/20/24 07:20 FiO2 Intake & Output 08/19/24 08/20/24 08/20/24 18:59 06:59 18:59 Intake Total 440 Output Total 800 Balance 440 -800 Intake: Oral 440 Output: Urine 800 Other: Voiding Method Bedside Commode External Catheter External Catheter # Voids 3 1 # Bowel Movements 1 - Labs CBC & Chem 7: 08/20/24 02:45 08/20/24 02:45 Labs: Abnormal Lab Results - Last 24 Hours (Table) 08/19/24 08/20/24 08/20/24 Range/Units 16:37 02:45 02:45 RBC 3.50 L (4.10-5.20) X 10*6/uL Hgb 11.6 L (12.0-15.0) g/dL Hct 36.7 L (37.2-46.3) % MCV 104.9 H (80.0-97.0) FL MCH 33.1 H (27.0-32.0) pg MCHC 31.6 L (32.0-37.0) g/dL RDW 16.8 H (11.5-14.5) % Immature Gran # 0.06 H (0.00-0.04) X 10*3/uL BUN 32.8 H (9.0-27.0) mg/dL Creatinine 1.6 H (0.6-1.5) mg/dL Est GFR (CKD-EPI) 33 L (>=60) BUN/Creatinine Ratio 20.50 H (12.00-20.00) Ratio POC Glucose (mg/dL) 306 H (70-110) mg/dL Microbiology - Last 24 Hours (Table) 08/16/24 13:30 Blood Culture - Preliminary Blood
[2024-08-20 11:51] LABS: Glucose,Whole Blood 238 mg/dL (70-110)
[2024-08-20 16:47] LABS: Glucose,Whole Blood 118 mg/dL (70-110)
[2024-08-20 21:08] LABS: Glucose,Whole Blood 175 mg/dL (70-110)
[2024-08-21 06:36] LABS: Glucose,Whole Blood 129 mg/dL (70-110)
[2024-08-21 09:00] VITALS: BP 119/81; PULSE 91; RESP 16; TEMP 97.6
--- NOTE | 2024-08-21 11:45 | P.DS ---
Providers Date of admission: 08/16/24 15:02 Expected date of discharge: 08/21/24 Attending physician: Wang Mix MD Consults: 08/16/24 15:51 Consult Physician Routine Consulting Provider: Darrell Tsai Consult Reason/Comments: UTI sepsis Do you want consulting provider notified?: Yes Consult Physician Stat Consulting Provider: Philipp Ulrich Consult Reason/Comments: CHF exacerbation Do you want consulting provider notified?: Yes Primary care physician: [facility] Course: Discharge Diagnosis: Acute metabolic encephalopathy History of dementia Urinary tract infection Sepsis on admission Acute hypoxic respiratory failure Acute on chronic systolic heart failure Hypokalemia Atrial fibrillation with RVR Type 2 diabetes Hospital Course: 78 year old F with PMH of CAD, HFrEF EF 25-30% on 10/2023 Echo, recurrent UTI, DM, Gout, A-Fib, Hypothyroid, Dementia, Gastritis presents to the ED. Son and providing majority of the history. They report confusion, urinary urgency, delirium and restlessness over the past 2 days. Also reports decreased appetite and PO intake over the past 2 days. Patient reports some shortness of breath with ambulation and lower extremity swelling. She was recently seen in the ED on 08/05 for a mechanical fall. In the ED she underwent extensive evaluation. BP 139/86, HR 114, T 98.3F, RR 20, 92% on RA. CBC, CMP significant for WBC 10.9, MCV 103.7, K 3.4, Cl 108, BUN 32, Cr 1.24, glu 151, AST 42, ALT 54. BNP 87160. Lactic acid 2.0. UA large LE. EKG A-Fib with RVR rate of 114, incomplete RBBB. CXR showed bilateral patchy pleural opacities with pleural effusion. Patient was given 1g of Rocephin IV and 2 x 500 cc NS bolus. Admitted for treatment of UTI sepsis. Started on Daptomycin and ID consulted. Also started on Lasix IV for systolic CHF exacerbation and Cardiology consulted. Patient's urine culture grew pansensitive E. coli so patient was switched over to IV Rocephin. Also found to have Evelyn, started on Diflucan. Cardiology switch the patient to torsemide 20 mg daily. Cardiology then signed off. Patient has prior history of allergy to spironolactone, unable to take SGLT2 inhibitor due to recurrent UTI. Outpatient follow-up with PCP and cardiology. Patient seen and examined at bedside. Vital signs reviewed and stable. General: Nontoxic, no distress, appears at stated age Derm: Warm, dry Head: Atraumatic, normocephalic, symmetric Eyes: EOMI, no lid lag, anicteric sclera Mouth: No lip lesion, mucus membranes moist Cardiovascular: S1S2 reg, no murmur Lungs: Diminished breath sounds bilaterally at the bases, no accessory muscle use Abdominal: Soft, nontender to palpation, no guarding, no appreciable organomegaly Ext: No gross muscle atrophy, no edema, no contractures Neuro: CN II-XI grossly intact, no focal neuro deficits Psych: Alert, oriented x 2, appropriate affect A total of 36 minutes of time were spent preparing this complex discharge summary. Patient was discharged on 08/21/2024 at 1122. Patient Condition at Discharge: Stable Plan - Discharge Summary Discharge Rx Participant: No New Discharge Prescriptions: New Cefdinir 300 mg PO Q12HR #8 cap Atorvastatin [Lipitor] 40 mg PO HS tab Metoprolol Succinate (ER) [Toprol XL] 150 mg PO DAILY tab Losartan [Cozaar] 12.5 mg PO DAILY tab Torsemide [Demadex] 20 mg PO DAILY tab Fluconazole [Diflucan] 100 mg PO DAILY #10 tab Clopidogrel [Plavix] 75 mg PO DAILY tab Metoprolol Succinate (ER) [Toprol XL] 150 mg PO HS tab Continue FLUoxetine HCL [PROzac] 60 mg PO HS allopurinoL [Zyloprim] 300 mg PO HS Zafirlukast [Accolate] 20 mg PO BID Multivitamins, Thera [Multivitamin (formulary)] 1 tab PO DAILY Memantine [Namenda] 5 mg PO BID tab Nitroglycerin Sl Tabs [Nitrostat] 0.4 mg SL Q5M PRN PRN Reason: Chest Pain Pantoprazole Sodium [Protonix] 40 mg PO BID Ondansetron Odt [Zofran ODT] 8 mg PO Q8HR PRN PRN Reason: Nausea Apixaban [Eliquis] 5 mg PO BID #60 tab Levothyroxine Sodium [Synthroid] 75 mcg PO DAILY Promethazine HCl 12.5 mg PO AC-TID metFORMIN HCL [Glucophage] 500 mg PO BID L.acidoph,Paracasei, B.lactis [Probiotic] 1 cap PO DAILY@1200 Bismuth Subsalicylate [Pepto-Bismol] 524 mg PO Q4H PRN PRN Reason: gi upset Clotrimazole/Betameth Cream [Lotrisone] 1 applic TOPICAL DAILY PRN PRN Reason: Rash Cranberry 1 dose PO DAILY@1200 Calcium Carbonate [Tums] 500 mg PO QID PRN PRN Reason: Gi Upset Estradiol Cream [Estrace Cream 0.01%] 1 gm VAGINAL DIRECTED Methenamine Hippurate 1 gm PO BID Digoxin [Digitek] 125 mcg PO DAILY Discontinued Furosemide [Lasix] 20 mg PO Q48H tab Metoprolol Succinate (ER) [Toprol Xl] 100 mg PO DAILY Metoprolol Succinate (ER) [Toprol Xl] 50 mg PO HS Discharge Medication List FLUoxetine HCL [PROzac] 60 mg PO HS 08/02/20 [History] Multivitamins, Thera [Multivitamin (formulary)] 1 tab PO DAILY 08/02/20 [History] Zafirlukast [Accolate] 20 mg PO BID 08/02/20 [History] allopurinoL [Zyloprim] 300 mg PO HS 08/02/20 [History] Apixaban [Eliquis] 5 mg PO BID #60 tab 10/16/23 [Rx] Memantine [Namenda] 5 mg PO BID tab 03/24/24 [Rx] Levothyroxine Sodium [Synthroid] 75 mcg PO DAILY 05/08/24 [History] Nitroglycerin Sl Tabs [Nitrostat] 0.4 mg SL Q5M PRN 05/08/24 [History] Bismuth Subsalicylate [Pepto-Bismol] 524 mg PO Q4H PRN 06/25/24 [History] Clotrimazole/Betameth Cream [Lotrisone] 1 applic TOPICAL DAILY PRN 06/25/24 [History] Cranberry 1 dose PO DAILY@1200 06/25/24 [History] L.acidoph,Paracasei, B.lactis [Probiotic] 1 cap PO DAILY@1200 06/25/24 [History] Pantoprazole Sodium [Protonix] 40 mg PO BID 06/25/24 [History] Promethazine HCl 12.5 mg PO AC-TID 06/25/24 [History] metFORMIN HCL [Glucophage] 500 mg PO BID 06/25/24 [History] Calcium Carbonate [Tums] 500 mg PO QID PRN 08/05/24 [History] Estradiol Cream [Estrace Cream 0.01%] 1 gm VAGINAL DIRECTED 08/05/24 [History] Methenamine Hippurate 1 gm PO BID 08/05/24 [History] Ondansetron Odt [Zofran ODT] 8 mg PO Q8HR PRN 08/05/24 [History] Digoxin [Digitek] 125 mcg PO DAILY 08/16/24 [History] Atorvastatin [Lipitor] 40 mg PO HS tab 08/21/24 [Rx] Cefdinir 300 mg PO Q12HR #8 cap 08/21/24 [Rx] Clopidogrel [Plavix] 75 mg PO DAILY tab 08/21/24 [Rx] Fluconazole [Diflucan] 100 mg PO DAILY #10 tab 08/21/24 [Rx] Losartan [Cozaar] 12.5 mg PO DAILY tab 08/21/24 [Rx] Metoprolol Succinate (ER) [Toprol XL] 150 mg PO DAILY tab 08/21/24 [Rx] Metoprolol Succinate (ER) [Toprol XL] 150 mg PO HS tab 08/21/24 [Rx] Torsemide [Demadex] 20 mg PO DAILY tab 08/21/24 [Rx] Follow up Appointment(s)/Referral(s): Wiley Moreira MD [STAFF PHYSICIAN] - 1 Week Blas Williamson DO [Primary Care Provider] - 1-2 days Patient Instructions/Handouts: Heart Failure (DC), Urinary Tract Infection in Women (DC) Activity/Diet/Wound Care/Special Instructions: Please see PCP, and cardiology. Discharge Disposition: TRANSFER TO SNF/ECF
[2024-08-21 11:54] LABS: Glucose,Whole Blood 111 mg/dL (70-110)
--- NOTE | 2024-08-21 14:42 | P.PN ---
Subjective Progress Note Date: 08/20/24 Principal diagnosis: Reason for follow-up is a urinary tract infection Patient is a 78-year-old female with a past medical history of again for diabetes mellitus hypertension hyperlipidemia atrial fibrillation patient has been brought into the hospital for evaluation of weakness and mental status changes and elicited with outpatient setting for UTI concerning for UTI failing outpatient treatment. On today's evaluation that is 08/20/2024, the patient continues to be afebrile, the patient is on room air and breathing comfortably, the Pt denies having any chest pain or cough, the patient denies having any abdominal pain no vomiting or any diarrhea has been reported by the nursing staff. Patient white count 6.62, creatinine is 1.6 urine with Evelyn and E. coli Objective - Vital Signs Vital signs: Vital Signs Temp 97.5 F L 08/20/24 07:20 Pulse 67 08/20/24 07:20 Resp 16 08/20/24 09:00 BP 143/87 08/20/24 07:20 Pulse Ox 97 08/20/24 07:20 FiO2 Intake & Output 08/19/24 08/20/24 08/20/24 18:59 06:59 18:59 Intake Total 440 Output Total 800 Balance 440 -800 Intake: Oral 440 Output: Urine 800 Other: Voiding Method Bedside Commode External Catheter External Catheter # Voids 3 1 # Bowel Movements 1 - Exam GENERAL DESCRIPTION: An elderly female lying in bed in no distress RESPIRATORY SYSTEM: Unlabored breathing , decreased breath sounds at bases HEART: S1 S2 regular rate and rhythm , ABDOMEN: Soft , no tenderness EXTREMITIES: No edema feet - Labs CBC & Chem 7: 08/20/24 02:45 08/20/24 02:45 Labs: Abnormal Lab Results - Last 24 Hours (Table) 08/19/24 08/20/24 08/20/24 Range/Units 16:37 02:45 02:45 RBC 3.50 L (4.10-5.20) X 10*6/uL Hgb 11.6 L (12.0-15.0) g/dL Hct 36.7 L (37.2-46.3) % MCV 104.9 H (80.0-97.0) FL MCH 33.1 H (27.0-32.0) pg MCHC 31.6 L (32.0-37.0) g/dL RDW 16.8 H (11.5-14.5) % Immature Gran # 0.06 H (0.00-0.04) X 10*3/uL BUN 32.8 H (9.0-27.0) mg/dL Creatinine 1.6 H (0.6-1.5) mg/dL Est GFR (CKD-EPI) 33 L (>=60) BUN/Creatinine Ratio 20.50 H (12.00-20.00) Ratio POC Glucose (mg/dL) 306 H (70-110) mg/dL 08/20/24 Range/Units 11:49 RBC (4.10-5.20) X 10*6/uL Hgb (12.0-15.0) g/dL Hct (37.2-46.3) % MCV (80.0-97.0) FL MCH (27.0-32.0) pg MCHC (32.0-37.0) g/dL RDW (11.5-14.5) % Immature Gran # (0.00-0.04) X 10*3/uL BUN (9.0-27.0) mg/dL Creatinine (0.6-1.5) mg/dL Est GFR (CKD-EPI) (>=60) BUN/Creatinine Ratio (12.00-20.00) Ratio POC Glucose (mg/dL) 238 H (70-110) mg/dL Microbiology - Last 24 Hours (Table) 08/16/24 13:30 Blood Culture - Preliminary Blood Assessment and Plan (1) Urinary tract infection Status: Acute Code(s): N39.0 - URINARY TRACT INFECTION, SITE NOT SPECIFIED SNOMED Code(s): 84522223 Plan: 1patient presented to hospital with mental status changes did have a difficult urination positive UA elevated white count, concerning for a symptomatic urinary tract infection with a last urine culture positive for VRE 2urine culture grew Evelyn albicans and E. coli 3-patient to continue with the Diflucan and Rocephin short course of oral antibiotic on discharge Dictation was produced using [employer] dictation software. please excuse any grammatical, word or spelling errors. Time with Patient: Less than 30
--- NOTE | 2024-08-21 14:43 | P.PN ---
Subjective Progress Note Date: 08/21/24 Principal diagnosis: Reason for follow-up is a urinary tract infection Patient is a 78-year-old female with a past medical history of again for diabetes mellitus hypertension hyperlipidemia atrial fibrillation patient has been brought into the hospital for evaluation of weakness and mental status changes and elicited with outpatient setting for UTI concerning for UTI failing outpatient treatment. On today's evaluation that is 08/21/2024, Patient is afebrile patient is currently on room air and denies having any shortness of breath, the patient denies any chest pain or cough, the patient denies any nausea vomiting did not have any abdominal pain and no diarrhea, mention feeling better. No new lab has been obtained today Objective - Vital Signs Vital signs: Vital Signs Temp 97.6 F 08/21/24 07:35 Pulse 91 08/21/24 07:35 Resp 16 08/21/24 10:04 BP 119/81 08/21/24 07:35 Pulse Ox 96 08/21/24 07:35 FiO2 Intake & Output 08/20/24 08/21/24 08/21/24 18:59 06:59 18:59 Output Total 900 2250 Balance -900 -2250 Output: Urine 900 2250 Other: Voiding Method External Catheter External Catheter External Catheter # Voids 1 # Bowel Movements 1 - Exam GENERAL DESCRIPTION: An elderly female lying in bed in no distress RESPIRATORY SYSTEM: Unlabored breathing , decreased breath sounds at bases HEART: S1 S2 regular rate and rhythm , ABDOMEN: Soft , no tenderness EXTREMITIES: No edema feet - Labs CBC & Chem 7: 08/20/24 02:45 08/20/24 02:45 Labs: Abnormal Lab Results - Last 24 Hours (Table) 08/20/24 08/20/24 08/21/24 Range/Units 16:46 21:07 06:35 POC Glucose (mg/dL) 118 H 175 H 129 H (70-110) mg/dL 08/21/24 Range/Units 11:53 POC Glucose (mg/dL) 111 H (70-110) mg/dL Assessment and Plan (1) Urinary tract infection Status: Acute Code(s): N39.0 - URINARY TRACT INFECTION, SITE NOT SPECIFIED SNOMED Code(s): 27656860 Plan: 1patient presented to hospital with mental status changes did have a difficult urination positive UA elevated white count, concerning for a symptomatic urinary tract infection with a last urine culture positive for VRE 2urine culture grew Evelyn albicans and E. coli 3-patient has shown clinical improvement she will finish therapy with oral Diflucan and Cefdinar on discharge Dictation was produced using [employer] software. please excuse any grammatical, word or spelling errors. Time with Patient: Less than 30
== END 2024-08-21 14:30 | DRG 871 ==
LOC: EC 09:14 → 4SSUR 15:02
PROVIDERS: ADMIT Family Medicine; ATTEND Family Medicine
DX: A41.51 Sepsis due to Escherichia coli [E. coli] (principal); G93.41 Metabolic encephalopathy; I50.23 Acute on chronic systolic (congestive) heart failure; J96.01 Acute respiratory failure with hypoxia; J18.9 Pneumonia, unspecified organism; I13.0 Hypertensive heart and chronic kidney disease with heart failure and stage 1 through stage 4 chronic kidney disease, or unspecified chronic kidney disease; I48.19 Other persistent atrial fibrillation; B37.49 Other urogenital candidiasis; F03.94 Unspecified dementia, unspecified severity, with anxiety; I42.0 Dilated cardiomyopathy; N17.9 Acute kidney failure, unspecified; Z16.21 Resistance to vancomycin; N18.9 Chronic kidney disease, unspecified; E11.22 Type 2 diabetes mellitus with diabetic chronic kidney disease; R74.01 Elevation of levels of liver transaminase levels; E87.6 Hypokalemia; Z79.899 Other long term (current) drug therapy; T50.1X5A Adverse effect of loop [high-ceiling] diuretics, initial encounter; I25.10 Atherosclerotic heart disease of native coronary artery without angina pectoris; Z98.61 Coronary angioplasty status; E78.5 Hyperlipidemia, unspecified; E83.42 Hypomagnesemia; I27.20 Pulmonary hypertension, unspecified; I08.0 Rheumatic disorders of both mitral and aortic valves; Z88.2 Allergy status to sulfonamides; Z88.1 Allergy status to other antibiotic agents; Z88.8 Allergy status to other drugs, medicaments and biological substances; B37.7 Candidal sepsis; E03.9 Hypothyroidism, unspecified; F32.A Depression, unspecified; H91.90 Unspecified hearing loss, unspecified ear; I45.10 Unspecified right bundle-branch block; M10.9 Gout, unspecified; K29.70 Gastritis, unspecified, without bleeding; W19.XXXA Unspecified fall, initial encounter; Z79.01 Long term (current) use of anticoagulants; Z79.84 Long term (current) use of oral hypoglycemic drugs; Z79.890 Hormone replacement therapy; Z82.49 Family history of ischemic heart disease and other diseases of the circulatory system; Z87.440 Personal history of urinary (tract) infections; Z98.84 Bariatric surgery status; Z87.19 Personal history of other diseases of the digestive system; Z96.1 Presence of intraocular lens; Z98.42 Cataract extraction status, left eye; Z98.41 Cataract extraction status, right eye; Z96.653 Presence of artificial knee joint, bilateral; Z96.643 Presence of artificial hip joint, bilateral; Z90.49 Acquired absence of other specified parts of digestive tract; Z88.7 Allergy status to serum and vaccine
CPT/HCPCS: 36415; 71045; 71046; 80048; 80053; 81001; 83605; 83735; 83880; 85025; 85027; 87040; 87077; 87086; 87186; 87636; 93005; 93306; 96361; 96365; 96375; 96376; 99285

== ENCOUNTER 2024-08-28 16:09 | Inpatient (IN) | payer MEDICARE ==
--- NOTE | 2024-08-28 17:01 | ED ---
Altered Mental Status HPI - General Chief Complaint: Recheck/Abnormal Lab/Rx Stated Complaint: abn labs, lethargy Time Seen by Provider: 08/28/24 16:22 Source: EMS, RN notes reviewed, old records reviewed Mode of arrival: EMS Limitations: altered mental status - History of Present Illness Initial Comments: This is a 78-year-old female to ER for evaluation of abnormal lab values but patient is unable to provide history Patient was sent in for alleged abnormal lab values unsure of what abnormal lab values may be MD Complaint: altered mental status -: unknown Associated Symptoms: denies other symptoms - Related Data Home Medications Medication Instructions Recorded Confirmed FLUoxetine HCL [PROzac] 60 mg PO HS 08/02/20 08/28/24 Zafirlukast [Accolate] 20 mg PO BID 08/02/20 08/28/24 allopurinoL [Zyloprim] 300 mg PO HS 08/02/20 08/28/24 Nitroglycerin Sl Tabs [Nitrostat] 0.4 mg SL Q5M PRN 05/08/24 08/28/24 Bismuth Subsalicylate 524 mg PO Q4H PRN 06/25/24 08/28/24 [Pepto-Bismol] L.acidoph,Paracasei, B.lactis 1 cap PO DAILY 06/25/24 08/28/24 [Probiotic] Pantoprazole Sodium [Protonix] 40 mg PO DAILY@0600 06/25/24 08/28/24 metFORMIN HCL [Glucophage] 500 mg PO BID 06/25/24 08/28/24 Calcium Carbonate [Tums] 500 mg PO QID PRN 08/05/24 08/28/24 Estradiol Cream [Estrace Cream 1 gm VAGINAL MOTH 08/05/24 08/28/24 0.01%] Methenamine Hippurate 1 gm PO BID 08/05/24 08/28/24 Clopidogrel [Plavix] 75 mg PO HS 08/28/24 08/28/24 Cranberry 450mg 1 tab PO DAILY 08/28/24 08/28/24 Metoprolol Succinate (ER) [Toprol 50 mg PO HS 08/28/24 08/28/24 XL] Metoprolol Succinate (ER) [Toprol 100 mg PO HS 08/28/24 08/28/24 XL] Torsemide [Demadex] 20 mg PO DAILY@0600 08/28/24 08/28/24 ondansetron HCL [Zofran] 8 mg PO Q8HR PRN 08/28/24 08/28/24 Previous Rx's Medication Instructions Recorded Apixaban [Eliquis] 5 mg PO BID #60 tab 10/16/23 Memantine [Namenda] 5 mg PO BID tab 03/24/24 Acetaminophen Tab [Tylenol] 500 mg PO Q6HR PRN tab 09/05/24 Levothyroxine Sodium [Synthroid] 112 mcg PO DAILY@0630 #0 tab 09/05/24 Losartan [Cozaar] 25 mg PO DAILY #90 tab 09/05/24 Melatonin 5 mg PO HS tab 09/05/24 polyethylene glycoL 3350 [Miralax] 17 gm PO DAILY packet 09/05/24 Allergies Allergy/AdvReac Type Severity Reaction Status Date / Time sulfamethoxazole AdvReac Unknown STOMACH Verified 08/28/24 20:16 [From Bactrim] PAIN trimethoprim [From Bactrim] AdvReac Unknown STOMACH Verified 08/28/24 20:16 PAIN spironolactone AdvReac Unknown Verified 08/28/24 20:16 [From Aldactone] HORSE SERUM TETANAS Allergy Severe Anaphylaxis Uncoded 08/28/24 20:16 Novacaine Allergy Anaphylaxis Uncoded 08/28/24 20:16 Review of Systems ROS Statement: Those systems with pertinent positive or pertinent negative responses have been documented in the HPI. ROS Other: All systems not noted in ROS Statement are negative. Past Medical History Past Medical History: Atrial Fibrillation, Heart Failure, Dementia, Diabetes Mellitus, GERD/Reflux, Hyperlipidemia, Hypertension, Thyroid Disorder Additional Past Medical History / Comment(s): Sleep Apnea (no machine not working), hx of septicemia, neck, back and shoulder pain, uses cane and rolling walker prn, gout . pt states recent diagnosis of DM 2, metabolic encephalopathy, gout, History of Any Multi-Drug Resistant Organisms: None Reported Past Surgical History: Adenoidectomy, Bariatric Surgery, Cholecystectomy, Heart Catheterization With Stent, Hernia Repair, Joint Replacement, Tonsillectomy Additional Past Surgical History / Comment(s): GASTRIC SLEEVE (2010- DR MENDEZ), CARPAL TUNNEL MARILYN, CATARACTS, INGUINAL HERNIA, MARILYN TOTAL KNEES, Bilateral TOTAL HIPs, injections in back for spinal stenosis and cervical injections., pain clinic procedures. Past Anesthesia/Blood Transfusion Reactions: No Reported Reaction, Motion Sickness Date of Last Stent Placement:: 11/07/23 Past Psychological History: Anxiety, Depression Smoking Status: Never smoker Past Alcohol Use History: None Reported Past Drug Use History: None Reported - Past Family History Mother Additional Family Medical History / Comment(s): heart disease Father Family Medical History: Coronary Artery Disease (CAD), CVA/TIA Additional Family Medical History / Comment(s): heart disease General Exam Limitations: altered mental status, physical limitation General appearance: alert, in no apparent distress, anxious Head exam: Present: atraumatic, normocephalic, normal inspection Eye exam: Present: normal appearance, PERRL, EOMI. Absent: scleral icterus, conjunctival injection, periorbital swelling ENT exam: Present: normal exam, mucous membranes moist Neck exam: Present: normal inspection. Absent: tenderness, meningismus, lymphadenopathy Respiratory exam: Present: normal lung sounds bilaterally. Absent: respiratory distress, wheezes, rales, rhonchi, stridor Cardiovascular Exam: Present: regular rate, normal rhythm, normal heart sounds. Absent: systolic murmur, diastolic murmur, rubs, gallop, clicks GI/Abdominal exam: Present: soft, normal bowel sounds. Absent: distended, te nderness, guarding, rebound, rigid Extremities exam: Present: normal inspection, full ROM, normal capillary refill. Absent: tenderness, pedal edema, joint swelling, calf tenderness Back exam: Present: normal inspection Neurological exam: Present: alert, oriented X3, CN II-XII intact Psychiatric exam: Present: normal affect, normal mood Skin exam: Present: warm, dry, intact, normal color. Absent: rash Course Vital Signs 08/28/24 08/28/24 08/28/24 16:13 18:44 21:32 Temperature 97.7 F Pulse Rate 58 L 61 64 Pulse Rate [ Pulse Oximetery ] Respiratory 18 18 16 Rate Blood Pressure 107/66 109/75 110/60 Blood Pressure [Left Arm] O2 Sat by Pulse 95 95 95 Oximetry 08/28/24 08/28/24 08/29/24 22:00 23:00 02:38 Temperature Pulse Rate 60 57 L 57 L Pulse Rate [ Pulse Oximetery ] Respiratory 16 18 17 Rate Blood Pressure 110/60 119/81 113/74 Blood Pressure [Left Arm] O2 Sat by Pulse 96 97 95 Oximetry 08/29/24 08/29/24 08/29/24 05:30 08:28 09:42 Temperature 97.6 F Pulse Rate 62 58 L 59 L Pulse Rate [ Pulse Oximetery ] Respiratory 16 16 16 Rate Blood Pressure 121/68 97/63 104/65 Blood Pressure [Left Arm] O2 Sat by Pulse 97 94 L 96 Oximetry 08/29/24 08/29/24 08/29/24 11:28 12:09 15:02 Temperature Pulse Rate 63 64 61 Pulse Rate [ Pulse Oximetery ] Respiratory 16 16 16 Rate Blood Pressure 114/62 106/56 117/65 Blood Pressure [Left Arm] O2 Sat by Pulse 94 L 94 L 94 L Oximetry 08/29/24 08/29/24 08/29/24 16:00 17:00 20:02 Temperature Pulse Rate 58 L 57 L 67 Pulse Rate [ Pulse Oximetery ] Respiratory 16 16 16 Rate Blood Pressure 123/71 123/62 124/75 Blood Pressure [Left Arm] O2 Sat by Pulse 95 95 100 Oximetry 08/29/24 20:30 Temperature 97.2 F L Pulse Rate Pulse Rate [ 63 Pulse Oximetery ] Respiratory 18 Rate Blood Pressure Blood Pressure 109/46 [Left Arm] O2 Sat by Pulse 96 Oximetry - Reevaluation(s) Reevaluation #1: 08/28/24 18:57 Medical records reviewed Reevaluation #2: 08/28/24 18:57 Patient symptoms unchanged Reevaluation #3: 08/28/24 18:57 Patient informed of results questions answered Reevaluation #4: Was pt. sent in by a medical professional or institution (, PA, [facility], urgent care, hospital, or [place] [facility] facility...) When possible be specific @ -no Did you speak to anyone other than the patient for history (EMS, parent, family, police, friend...)? What history was obtained from this source @ -no Did you review nursing and triage notes (agree or disagree)? Why? @ -agree Are old charts reviewed (outside hosp., previous admission, EMS record, old EKG, old radiological studies, urgent care reports/EKG's, [place] [facility] facility records)? Report findings @ -yes Differential Diagnosis (chest pain, altered mental status, abdominal pain women, abdominal pain men, vaginal bleeding, weakness, fever, dyspnea, syncope, headache, dizziness, GI bleed, back pain, seizure, CVA, palpatations, mental health, musculoskeletal)? @ -prior EKG interpreted by me (3pts min.). @ -yes X-rays interpreted by me (1pt min.). @ -no CT interpreted by me (1pt min.). @ -no U/S interpreted by me (1pt. min.). @ -no What testing was considered but not performed or refused? (CT, X-rays, U/S, labs)? Why? @ -none What meds were considered but not given or refused? Why? @ -none Did you discuss the management of the patient with other professionals (professionals i.e. , PA, [facility], lab, RT, psych nurse, social media coordinator, tinning machine set up operator, teacher, staff air defense officer, rifle case repairer)? Give summary @ -no Was smoking cessation discussed for >3mins.? @ -no Was critical care preformed (if so, how long)? @ -no Were there social determinants of health that impacted care today? How? (Homelessness, low income, unemployed, alcoholism, drug addiction, transportation, low edu. Level, literacy, decrease access to med. care, care home, rehab)? @ -none Was there de-escalation of care discussed even if they declined (Discuss DNR or withdrawal of care, Hospice)? DNR status @ -no What co-morbidities impacted this encounter? (DM, HTN, Smoking, COPD, CAD, Cancer, CVA, ARF, Chemo, Hep., AIDS, mental health diagnosis, sleep apnea, mor bid obesity)? @ -none Was patient admitted / discharged? Hospital course, mention meds given and ro kiana, prescriptions, significant lab abnormalities, going to OR and other pertinent info. @ - 78 female to ER for evaluation of severe and significant weakness with altered mental status and abnormal lab testing acute kidney injury patient will be admitted for nephrology evaluation Admitted Undiagnosed new problem with uncertain prognosis? @ -no Drug Therapy requiring intensive monitoring for toxicity (Heparin, Nitro, Insulin, Cardizem)? @ -no Were any procedures done? @ -no Diagnosis/symptom? @ -Renal failure Acute, or Chronic, or Acute on Chronic? @ -Acute Uncomplicated (without systemic symptoms) or Complicated (systemic symptoms)? @ -Complicated Side effects of treatment? @ -no Exacerbation, Progression, or Severe Exacerbation? @ -exacerbation Poses a threat to life or bodily function? How? (Chest pain, USA, ID, pneumonia, PE, COPD, DKA, ARF, appy, cholecystitis, CVA, Diverticulitis, Homicidal, Suicidal, threat to staff... and all critical care pts) @ -yes extremes of age Reevaluation #5: Differential Altered Mental Status: Hypoglycemia, DKA, hypercapnia, ETOH, overdose, CO poisoning, trauma, myxedema coma, HTN encephalopathy, infection, encephalitis, psychosis, intercranial hemorrhage, hepatic encephalopathy, meningitis, CVA, this is not meant to be an all-inclusive list - Consultations Consultation #1: Spoke with sound who agrees to admit this patient Medical Decision Making - Medical Decision Making 78 female to ER for evaluation of severe and significant weakness with altered mental status and abnormal lab testing acute kidney injury patient will be admitted for nephrology evaluation - Lab Data Result diagrams: 09/05/24 05:52 09/05/24 05:52 Lab Results 08/28/24 08/28/24 08/28/24 Range/Units 17:56 17:56 17:56 WBC 15.3 H (3.8-10.6) k/uL RBC 3.86 (3.80-5.40) m/uL Hgb 12.5 (11.4-16.0) gm/dL Hct 39.7 (34.0-46.0) % MCV 102.9 H (80.0-100.0) fL MCH 32.5 (25.0-35.0) pg MCHC 31.6 (31.0-37.0) g/dL RDW 15.5 (11.5-15.5) % Plt Count 365 (150-450) k/uL MPV 8.7 Neutrophils % 81 % Lymphocytes % 11 % Monocytes % 4 % Eosinophils % 1 % Basophils % 1 % Neutrophils # 12.5 H (1.3-7.7) k/uL Lymphocytes # 1.8 (1.0-4.8) k/uL Monocytes # 0.6 (0-1.0) k/uL Eosinophils # 0.2 (0-0.7) k/uL Basophils # 0.1 (0-0.2) k/uL Hypochromasia Slight Macrocytosis Slight PT 11.6 (10.0-12.5) sec INR 1.1 (<1.2) APTT 26.8 (22.0-30.0) sec Sodium 134 L (137-145) mmol/L Potassium 4.3 (3.5-5.1) mmol/L Chloride 103 (98-107) mmol/L Carbon Dioxide 23 (22-30) mmol/L Anion Gap 8 mmol/L BUN 65 H (7-17) mg/dL Creatinine 3.73 H (0.52-1.04) mg/dL Est GFR (CKD-EPI)AfAm 13 (>60 ml/min/1.73 sqM) Est GFR (CKD-EPI)NonAf 11 (>60 ml/min/1.73 sqM) Glucose 81 (74-99) mg/dL Plasma Lactic Acid Braden (0.7-2.0) mmol/L Calcium 8.7 (8.4-10.2) mg/dL Phosphorus 5.5 H (2.5-4.5) mg/dL Magnesium 1.8 (1.6-2.3) mg/dL Total Bilirubin 0.5 (0.2-1.3) mg/dL AST 193 H (14-36) U/L ALT 129 H (4-34) U/L Alkaline Phosphatase 146 H (38-126) U/L Troponin I (0.000-0.034) ng/mL NT-Pro-B Natriuret Pep 5550 pg/mL Total Protein 5.4 L (6.3-8.2) g/dL Albumin 2.9 L (3.5-5.0) g/dL TSH 27.200 H (0.465-4.680) mIU/L Free T4 (0.78-2.19) ng/dL 08/28/24 08/28/24 08/28/24 Range/Units 17:56 17:56 17:56 WBC (3.8-10.6) k/uL RBC (3.80-5.40) m/uL Hgb (11.4-16.0) gm/dL Hct (34.0-46.0) % MCV (80.0-100.0) fL MCH (25.0-35.0) pg MCHC (31.0-37.0) g/dL RDW (11.5-15.5) % Plt Count (150-450) k/uL MPV Neutrophils % % Lymphocytes % % Monocytes % % Eosinophils % % Basophils % % Neutrophils # (1.3-7.7) k/uL Lymphocytes # (1.0-4.8) k/uL Monocytes # (0-1.0) k/uL Eosinophils # (0-0.7) k/uL Basophils # (0-0.2) k/uL Hypochromasia Macrocytosis PT (10.0-12.5) sec INR (<1.2) APTT (22.0-30.0) sec Sodium (137-145) mmol/L Potassium (3.5-5.1) mmol/L Chloride (98-107) mmol/L Carbon Dioxide (22-30) mmol/L Anion Gap mmol/L BUN (7-17) mg/dL Creatinine (0.52-1.04) mg/dL Est GFR (CKD-EPI)AfAm (>60 ml/min/1.73 sqM) Est GFR (CKD-EPI)NonAf (>60 ml/min/1.73 sqM) Glucose (74-99) mg/dL Plasma Lactic Acid Braden 1.0 (0.7-2.0) mmol/L Calcium (8.4-10.2) mg/dL Phosphorus (2.5-4.5) mg/dL Magnesium (1.6-2.3) mg/dL Total Bilirubin (0.2-1.3) mg/dL AST (14-36) U/L ALT (4-34) U/L Alkaline Phosphatase (38-126) U/L Troponin I 0.039 H* (0.000-0.034) ng/mL NT-Pro-B Natriuret Pep pg/mL Total Protein (6.3-8.2) g/dL Albumin (3.5-5.0) g/dL TSH (0.465-4.680) mIU/L Free T4 1.06 (0.78-2.19) ng/dL - EKG Data -: EKG Interpreted by Me (EKG is A-fib 71 QRS 120 QTc 384) Disposition Clinical Impression: Altered mental status, JANNETH (acute kidney injury), Weakness Disposition: ADMITTED IP TO THIS HOSP Condition: Stable Is patient prescribed a controlled substance at d/c from ED?: No Time of Disposition: 19:00
[2024-08-28] MEDS: SODIUM CHLORIDE 0.9% 1,000 ML IV STA (17:20)
[2024-08-28 18:05] LABS: Basophils # (A) 0.1 k/uL (0-0.2); Basophils % (A) 1 %; Eosinophils # (A) 0.2 k/uL (0-0.7); Eosinophils % (A) 1 %; HCT 39.7 % (34.0-46.0); HGB 12.5 gm/dL (11.4-16.0); Hypochromasia Slight; Lymphocytes # (A) 1.8 k/uL (1.0-4.8); Lymphocytes % (A) 11 %; MCH 32.5 pg (25.0-35.0); MCHC 31.6 g/dL (31.0-37.0); MCV 102.9 fL (80.0-100.0); Macrocytosis Slight; Mean Platelet Volume 8.7; Monocytes # (A) 0.6 k/uL (0-1.0); Monocytes % (A) 4 %; Neutrophils # (A) 12.5 k/uL (1.3-7.7); Neutrophils % (A) 81 %; Platelet Count 365 k/uL (150-450); RBC 3.86 m/uL (3.80-5.40); RDW 15.5 % (11.5-15.5); WBC 15.3 k/uL (3.8-10.6)
[2024-08-28 18:18] LABS: INR 1.1 (<1.2); Partial Thromboplastin Time 26.8 sec (22.0-30.0); Prothrombin Time 11.6 sec (10.0-12.5)
[2024-08-28 18:22] LABS: ALT 129 U/L (4-34); AST 193 U/L (14-36); African American GFR (CKD) 13 (>60 ml/min/1.73 sqM); Albumin 2.9 g/dL (3.5-5.0); Alkaline Phosphatase 146 U/L (38-126); Anion Gap 8 mmol/L; Blood Urea Nitrogen 65 mg/dL (7-17); Calcium 8.7 mg/dL (8.4-10.2); Carbon Dioxide 23 mmol/L (22-30); Chloride 103 mmol/L (98-107); Glucose 81 mg/dL (74-99); Magnesium 1.8 mg/dL (1.6-2.3); Non-African American GFR(CKD) 11 (>60 ml/min/1.73 sqM); Phosphorus 5.5 mg/dL (2.5-4.5); Potassium 4.3 mmol/L (3.5-5.1); Sodium 134 mmol/L (137-145); Total Bilirubin 0.5 mg/dL (0.2-1.3); Total Protein 5.4 g/dL (6.3-8.2)
[2024-08-28 18:31] LABS: NT-Pro-B-Type Natriuretic Pept 5550 pg/mL
[2024-08-28] MEDS ORDERED: MORPHINE SULFATE 4 MG/ML SYRINGE IV PRN (18:55)
[2024-08-28] MEDS ORDERED: ONDANSETRON 4 MG/2 ML VIAL IVP PRN (18:55)
[2024-08-28] MEDS ORDERED: NALOXONE 0.4 MG/ML 1 ML VIAL IV PRN (18:55)
[2024-08-28] MEDS: SODIUM CHLORIDE 0.9% 1,000 ML IV SCH (20:16)
--- NOTE | 2024-08-28 23:58 | P.HPIM ---
History of Present Illness H&P Date: 08/28/24 Chief Complaint: Recheck/abnormal lab History of present illness; 78 year old F with PMH of CKD 3B, CAD, HFrEF EF 25- 30% on 10/2023 Echo, recurrent UTI, DM, Gout, A-Fib (on Eliquis), Hypothyroid, Dementia, Gastritis presents for recheck/abnormal lab. History limited due to patient being very tired and falling asleep during most questions asked. Reports for the last 2 days she has had decreased urine output. States she also has had some suprapubic pain, as well as some dysuria during the last 2 days as well. Denies headache, chest pain, shortness of breath, nausea, vomiting, diarrhea, constipation, abdominal pain, and lower extremity swelling. Labs: WBC 15.3, MCV 102.9, neutrophils 0.5, sodium 134, BUN 65, creatinine 3.73, phosphorus 5.5, AST 193, ALT 129, alkaline phosphatase 146, troponin 0.039, BNP 5550, and TSH 27.2. Imaging: - EKG done in the ER showed heart rate of 71 bpm, atrial fibrillation with aberrant conduction or ventricular premature complexes, right bundle branch block, and QTc 394. REVIEW OF SYSTEMS: As stated above in HPI. The rest of the 14-point review of systems is negative. PHYSICAL EXAMINATION: GENERAL: The patient is alert and oriented x1, not in any acute distress. HEENT: Pupils are round and equally reacting to light. EOMI. No scleral icterus. No conjunctival pallor. Normocephalic, atraumatic. CARDIOVASCULAR: S1 and S2 present. No murmurs, rubs, or gallops. PULMONARY: Chest is clear to auscultation b/l, no wheezing or crackles. ABDOMEN: Soft, nontender, nondistended, normoactive bowel sounds. No palpable or ganomegaly. Suprapubic tenderness appreciated. MUSCULOSKELETAL: No joint swelling or deformity. EXTREMITIES: No cyanosis, clubbing, or pedal edema. NEUROLOGICAL: Gross neurological examination did not reveal any focal deficits. SKIN: No rashes. Assessment and Plan 78 year old F with PMH of CAD, HFrEF EF 25-30% on 10/2023 Echo, recurrent UTI, DM, Gout, A-Fib (on Eliquis), Hypothyroid, Dementia, Gastritis presents for recheck/abnormal lab. Patient is being worked up for JANNETH and acute metabolic encephalopathy. #Acute metabolic encephalopahty: Potentially secondary to uremia versus urinary retention versus UTI #JANNETH on chronic kidney disease: Potentially postrenal less likely medication side effect -BUN 65, creatinine 3.73 -Hold home losartan allopurinol, and metformin -Avoid nephrotoxic agents -Status post 1 L bolus NS in the ED, continue NS 75 cc/h -Bladder ultrasound -PureWick in place - Strict I&O -Nephrology consulted #Transaminitis: -Previously elevated on recent admission - liver u/s -Continue to monitor CMP #Hyperphosphatemia: -In the setting of JANNETH on CKD -Continue to monitor #Elevated troponin: -Patient denying chest pain -Trend troponins -Potentially elevated in the setting of CKD #Leukocytosis: Potentially reactive versus UTI -WBC 15.3 and neutrophils 12.5 -Patient does admit to increased to prepubic tenderness -UA and urine culture ordered -Continue to monitor CBC -Most recent cultures growing Evelyn and E. coli, possible Evelyn colonization, had pansensitive E. coli, restarted on IV ceftriaxone Chronic Conditions: #Hypertension: -Hold losartan and torsemide in setting of JANNETH -Continue home metoprolol succinate #Atrial fibrillation: -Continue home Eliquis 5 mg p.o. twice daily -Hold digoxin, digoxin level pending #Hyperlipidemia: -Continue home Lipitor 40 mg p.o. at bedtime #Dementia: -Continue home memantine 5 mg p.o. twice daily #Hypothyroidism: -Continue home Synthroid 75 mcg p.o. daily - TSH 27, downtrending from previous levels #Gout: -Changed home allopurinol 300 to allopurinol 100 mg p.o. at bedtime #Diabetes mellitus: -Hold home medication -Started on sliding scale, monitor for hypoglycemia -Accu-Cheks #CAD: -Continue home Plavix 75 mg p.o. at bedtime F: NS 75 cc/h E: None N: Regular diet DVT ppx: Eliquis 5 mg p.o. twice daily GI ppx: Continue home Protonix 40 mg p.o. daily CODE STATUS: Full code Dispo: Pending medical course Blayne Berger MD PGY-1 FM Dictation was produced using [employer] dictation software. please excuse any grammatical, word or spelling errors. The patient is admitted with an anticipated greater than 2 midnight stay as inpatient status for evaluation of JANNETH. A total of 65 minutes was spent on the care of this complex patient more than 50% of the time was spent in counseling and care coordination. I have seen and evaluated the patient today. Discussed with the resident and agree with the residents finding and plan as documented in the resident's note. Changes highlighted in blue font. Past Medical History Past Medical History: Atrial Fibrillation, Heart Failure, Dementia, Diabetes Mellitus, GERD/Reflux, Hyperlipidemia, Hypertension, Thyroid Disorder Additional Past Medical History / Comment(s): Sleep Apnea (no machine not working), hx of septicemia, neck, back and shoulder pain, uses cane and rolling walker prn, gout . pt states recent diagnosis of DM 2, metabolic encephalopathy, gout, History of Any Multi-Drug Resistant Organisms: None Reported Past Surgical History: Adenoidectomy, Bariatric Surgery, Cholecystectomy, Heart Catheterization With Stent, Hernia Repair, Joint Replacement, Tonsillectomy Additional Past Surgical History / Comment(s): GASTRIC SLEEVE (2010- DR MENDEZ), CARPAL TUNNEL MARILYN, CATARACTS, INGUINAL HERNIA, MARILYN TOTAL KNEES, Bilateral TOTAL HIPs, injections in back for spinal stenosis and cervical injections., pain clinic procedures. Past Anesthesia/Blood Transfusion Reactions: No Reported Reaction, Motion S ickness Date of Last Stent Placement:: 11/07/23 Past Psychological History: Anxiety, Depression Smoking Status: Never smoker Past Alcohol Use History: None Reported Past Drug Use History: None Reported - Past Family History Mother Additional Family Medical History / Comment(s): heart disease Father Family Medical History: Coronary Artery Disease (CAD), CVA/TIA Additional Family Medical History / Comment(s): heart disease Medications and Allergies Home Medications Medication Instructions Recorded Confirmed Type FLUoxetine HCL [PROzac] 60 mg PO HS 08/02/20 08/28/24 History Zafirlukast [Accolate] 20 mg PO BID 08/02/20 08/28/24 History allopurinoL [Zyloprim] 300 mg PO HS 08/02/20 08/28/24 History Apixaban [Eliquis] 5 mg PO BID #60 tab 10/16/23 08/28/24 Rx Memantine [Namenda] 5 mg PO BID tab 03/24/24 08/28/24 Rx Levothyroxine Sodium [Synthroid] 75 mcg PO DAILY@0600 05/08/24 08/28/24 History Nitroglycerin Sl Tabs [Nitrostat] 0.4 mg SL Q5M PRN 05/08/24 08/28/24 History Bismuth Subsalicylate 524 mg PO Q4H PRN 06/25/24 08/28/24 History [Pepto-Bismol] L.acidoph,Paracasei, B.lactis 1 cap PO DAILY 06/25/24 08/28/24 History [Probiotic] Pantoprazole Sodium [Protonix] 40 mg PO DAILY@0600 06/25/24 08/28/24 History Promethazine HCl 12.5 mg PO AC-TID@,,06/25/24 08/28/24 History metFORMIN HCL [Glucophage] 500 mg PO BID 06/25/24 08/28/24 History Calcium Carbonate [Tums] 500 mg PO QID PRN 08/05/24 08/28/24 History Estradiol Cream [Estrace Cream 1 gm VAGINAL MOTH 08/05/24 08/28/24 History 0.01%] Methenamine Hippurate 1 gm PO BID 08/05/24 08/28/24 History Digoxin [Digitek] 125 mcg PO DIRECTED 08/16/24 08/28/24 History Atorvastatin [Lipitor] 40 mg PO HS tab 08/21/24 08/28/24 Rx Fluconazole [Diflucan] 100 mg PO DAILY #10 tab 08/21/24 08/28/24 Rx Losartan [Cozaar] 12.5 mg PO DAILY tab 08/21/24 08/28/24 Rx Clopidogrel [Plavix] 75 mg PO HS 08/28/24 08/28/24 History Cranberry 450mg 1 tab PO DAILY 08/28/24 08/28/24 History Metoprolol Succinate (ER) [Toprol 100 mg PO HS 08/28/24 08/28/24 History XL] Metoprolol Succinate (ER) [Toprol 50 mg PO HS 08/28/24 08/28/24 History Xl] Torsemide [Demadex] 20 mg PO DAILY@0600 08/28/24 08/28/24 History ondansetron HCL [Zofran] 8 mg PO Q8HR PRN 08/28/24 08/28/24 History Allergies Allergy/AdvReac Type Severity Reaction Status Date / Time sulfamethoxazole AdvReac Unknown STOMACH Verified 08/28/24 20:16 [From Bactrim] PAIN trimethoprim [From Bactrim] AdvReac Unknown STOMACH Verified 08/28/24 20:16 PAIN spironolactone AdvReac Unknown Verified 08/28/24 20:16 [From Aldactone] HORSE SERUM TETANAS Allergy Severe Anaphylaxis Uncoded 08/28/24 20:16 Novacaine Allergy Anaphylaxis Uncoded 08/28/24 20:16 Physical Exam Vitals: Vital Signs Temp Pulse Resp BP Pulse Ox 08/28/24 21:32 64 16 110/60 95 08/28/24 18:44 61 18 109/75 95 08/28/24 16:13 97.7 F 58 L 18 107/66 95 Intake and Output 08/28/24 08/28/24 08/28/24 06:59 14:59 22:59 Other: Weight 74.616 kg Results CBC & Chem 7: 08/28/24 17:56 08/28/24 17:56 Labs: Abnormal Lab Results - Last 24 Hours (Table) 08/28/24 08/28/24 08/28/24 Range/Units 17:56 17:56 17:56 WBC 15.3 H (3.8-10.6) k/uL MCV 102.9 H (80.0-100.0) fL Neutrophils # 12.5 H (1.3-7.7) k/uL Sodium 134 L (137-145) mmol/L BUN 65 H (7-17) mg/dL Creatinine 3.73 H (0.52-1.04) mg/dL Phosphorus 5.5 H (2.5-4.5) mg/dL AST 193 H (14-36) U/L ALT 129 H (4-34) U/L Alkaline Phosphatase 146 H (38-126) U/L Troponin I 0.039 H* (0.000-0.034) ng/mL Total Protein 5.4 L (6.3-8.2) g/dL Albumin 2.9 L (3.5-5.0) g/dL TSH 27.200 H (0.465-4.680) mIU/L
--- NOTE | 2024-08-29 01:29 | US ---
EXAMINATION TYPE: US abdomen comp/pelvis limited DATE OF EXAM: 08/29/2024 COMPARISON: US 03/05/24, US 05/11/24 CLINICAL INDICATION: Female, 78 years old with history of transaminitis; Transaminitis. Patient poor historian TECHNIQUE: Grayscale color Doppler imaging of the abdomen and pelvis. FINDINGS: EXAM MEASUREMENTS: Liver Length: 13.3 cm Gallbladder Wall: Surgically absent cm CBD: 0.4 cm Spleen: 10.3 cm Right Kidney: 9.5 x 5.0 x 4.8 cm Left Kidney: 8.0 x 4.7 x 4.0 cm Extremely limited exam due to patient unable to take breaths, lack of patient mobility and patient body habitus. Intercostal views used for a large portion of the exam Pancreas: Obscured by bowel gas Liver: Difficult to visualize, intercostal views used. appears wnl as best seen Gallbladder: Surgically absent CBD: wnl as best seen Spleen: wnl as best seen Right Kidney: Previous cysts visualized unable to visualize today due to rib shadows Left Kidney: Previous cysts visualized unable to visualize today due to rib shadows Upper IVC: wnl Abd Aorta: wnl Bladder: wnl Bilateral Jets Seen attempted, not visualized today Incidental findings: 1: there is a 4.4 x 3.5cm anechoic area seen anterior to the left kidney and inferior to the spleen 2. There is a 6.4 x 2.1 x 5.3cm fluid collection seen posterior to the bladder IMPRESSION: Suboptimal study. No obvious suspicious intrahepatic mass or intrahepatic biliary dilatat ion. Consider CT follow-up to better evaluate incidental findings noted in body of report. [facility], , 08/29/2024 1:26 AM
[2024-08-29 03:31] LABS: Appearance,Urine Clear (Clear); Bacteria,Urine Rare /hpf; Bilirubin,Urine Negative (Negative); Blood,Urine Small (Negative); Color,Urine Yellow; Glucose,Urine (UA) Negative (Negative); Ketones,Urine Negative (Negative); Leukocyte Esterase,Urine Large (Negative); Nitrite,Urine Negative (Negative); PH, Urine 5.5 (5.0-8.0); Protein,Urine 1+ (Negative); RBC,Urine 7 /hpf (0-5); Specific Gravity,Urine 1.014 (1.001-1.035); Squamous Epithelial Cell,Urine 1 /hpf (0-4); Urobilinogen,Urine <2.0 mg/dL (<2.0); WBC,Urine 87 /hpf (0-5)
[2024-08-29] MEDS: LEVOTHYROXINE 75 MCG TAB PO SCH (05:29)
[2024-08-29] MEDS: PANTOPRAZOLE 40 MG TABLET PO SCH (05:30)
[2024-08-29 06:45] LABS: Basophils # (A) 0.1 k/uL (0-0.2); Basophils % (A) 1 %; Eosinophils # (A) 0.3 k/uL (0-0.7); Eosinophils % (A) 2 %; HCT 38.6 % (34.0-46.0); HGB 11.9 gm/dL (11.4-16.0); Hypochromasia Slight; Lymphocytes # (A) 1.5 k/uL (1.0-4.8); Lymphocytes % (A) 11 %; MCH 31.9 pg (25.0-35.0); MCHC 30.7 g/dL (31.0-37.0); Macrocytosis Moderate; Mean Platelet Volume 8.7; Monocytes # (A) 0.6 k/uL (0-1.0); Monocytes % (A) 4 %; Neutrophils # (A) 11.1 k/uL (1.3-7.7); Neutrophils % (A) 81 %; Platelet Count 308 k/uL (150-450); RBC 3.71 m/uL (3.80-5.40); RDW 15.9 % (11.5-15.5); WBC 13.6 k/uL (3.8-10.6)
[2024-08-29 06:59] LABS: ALT 144 U/L (4-34); AST 212 U/L (14-36); African American GFR (CKD) 14 (>60 ml/min/1.73 sqM); Albumin 2.8 g/dL (3.5-5.0); Alkaline Phosphatase 144 U/L (38-126); Anion Gap 8 mmol/L; Blood Urea Nitrogen 64 mg/dL (7-17); Calcium 8.6 mg/dL (8.4-10.2); Carbon Dioxide 23 mmol/L (22-30); Chloride 106 mmol/L (98-107); Glucose 55 mg/dL (74-99); Magnesium 1.7 mg/dL (1.6-2.3); Non-African American GFR(CKD) 12 (>60 ml/min/1.73 sqM); Phosphorus 4.9 mg/dL (2.5-4.5); Sodium 137 mmol/L (137-145); Total Bilirubin 0.5 mg/dL (0.2-1.3); Total Protein 5.2 g/dL (6.3-8.2)
[2024-08-29] MEDS: MEMANTINE 5 MG TAB PO SCH (09:38)
[2024-08-29] MEDS: MONTELUKAST 10 MG TAB PO SCH (09:38)
[2024-08-29] MEDS: APIXABAN 5 MG TAB PO SCH (09:38)
--- NOTE | 2024-08-29 11:08 | P.NPCON ---
History of Present Illness - Reason for Consult acute renal failure, chronic renal failure - History of Present Illness Reason for consultation: Acute kidney injury on chronic kidney disease History of present illness: Patient is a 78-year-old female seen in renal consultation for acute kidney injury on chronic kidney disease. Patient has chronic kidney disease stage IIIa with baseline creatinine in the range of 1-1.2. Creatinine was 3.7 on admission and is 3.37 today. Patient presents from extended-care facility. She is not a reliable historian and is alert and oriented x 1. It is noted in the chart the patient was sent to the hospital due to abnormal labs. It is noted patient was having suprapubic pain and dysuria for 2 days prior to admission. No vomiting or diarrhea. She is currently on IV antibiotics. She is receiving IV fluids. Also received a liter bolus in the ER. She was on losartan outpatient which is currently held. I do not see any NSAIDs or diuretics on her home medication list. Patient does have a history of diastolic CHF with severe pulmonary hypertension and diabetes. Hemodynamically stable. No fever. Vital signs are stable. General: No acute distress. HEENT: Head exam is unremarkable. LUNGS: No audible rhonchi or wheezes. HEART: Rate and Rhythm are regular. ABDOMEN: Nontender. EXTREMITITES: No edema. Past Medical History Past Medical History: Atrial Fibrillation, Heart Failure, Dementia, Diabetes Mellitus, GERD/Reflux, Hyperlipidemia, Hypertension, Thyroid Disorder Additional Past Medical History / Comment(s): Sleep Apnea (no machine not working), hx of septicemia, neck, back and shoulder pain, uses cane and rolling walker prn, gout . pt states recent diagnosis of DM 2, metabolic encephalopathy, gout, History of Any Multi-Drug Resistant Organisms: None Reported Past Surgical History: Adenoidectomy, Bariatric Surgery, Cholecystectomy, Heart Catheterization With Stent, Hernia Repair, Joint Replacement, Tonsillectomy Additional Past Surgical History / Comment(s): GASTRIC SLEEVE (2010- DR MENDEZ), CARPAL TUNNEL MARILYN, CATARACTS, INGUINAL HERNIA, MARILYN TOTAL KNEES, Bilateral TOTAL HIPs, injections in back for spinal stenosis and cervical injections., pain clinic procedures. Past Anesthesia/Blood Transfusion Reactions: No Reported Reaction, Motion Sickness Date of Last Stent Placement:: 11/07/23 Past Psychological History: Anxiety, Depression Smoking Status: Never smoker Past Alcohol Use History: None Reported Past Drug Use History: None Reported - Past Family History Mother Additional Family Medical History / Comment(s): heart disease Father Family Medical History: Coronary Artery Disease (CAD), CVA/TIA Additional Family Medical History / Comment(s): heart disease Medications and Allergies Home Medications Medication Instructions Recorded Confirmed Type FLUoxetine HCL [PROzac] 60 mg PO HS 08/02/20 08/28/24 History Zafirlukast [Accolate] 20 mg PO BID 08/02/20 08/28/24 History allopurinoL [Zyloprim] 300 mg PO HS 08/02/20 08/28/24 History Apixaban [Eliquis] 5 mg PO BID #60 tab 10/16/23 08/28/24 Rx Memantine [Namenda] 5 mg PO BID tab 03/24/24 08/28/24 Rx Levothyroxine Sodium [Synthroid] 75 mcg PO DAILY@0600 05/08/24 08/28/24 History Nitroglycerin Sl Tabs [Nitrostat] 0.4 mg SL Q5M PRN 05/08/24 08/28/24 History Bismuth Subsalicylate 524 mg PO Q4H PRN 06/25/24 08/28/24 History [Pepto-Bismol] L.acidoph,Paracasei, B.lactis 1 cap PO DAILY 06/25/24 08/28/24 History [Probiotic] Pantoprazole Sodium [Protonix] 40 mg PO DAILY@0600 06/25/24 08/28/24 History Promethazine HCl 12.5 mg PO AC-TID@07,11,16 06/25/24 08/28/24 History metFORMIN HCL [Glucophage] 500 mg PO BID 06/25/24 08/28/24 History Calcium Carbonate [Tums] 500 mg PO QID PRN 08/05/24 08/28/24 History Estradiol Cream [Estrace Cream 1 gm VAGINAL MOTH 08/05/24 08/28/24 History 0.01%] Methenamine Hippurate 1 gm PO BID 08/05/24 08/28/24 History Digoxin [Digitek] 125 mcg PO DIRECTED 08/16/24 08/28/24 History Atorvastatin [Lipitor] 40 mg PO HS tab 08/21/24 08/28/24 Rx Fluconazole [Diflucan] 100 mg PO DAILY #10 tab 08/21/24 08/28/24 Rx Losartan [Cozaar] 12.5 mg PO DAILY tab 08/21/24 08/28/24 Rx Clopidogrel [Plavix] 75 mg PO HS 08/28/24 08/28/24 History Cranberry 450mg 1 tab PO DAILY 08/28/24 08/28/24 History Metoprolol Succinate (ER) [Toprol 100 mg PO HS 08/28/24 08/28/24 History XL] Metoprolol Succinate (ER) [Toprol 50 mg PO HS 08/28/24 08/28/24 History Xl] Torsemide [Demadex] 20 mg PO DAILY@0600 08/28/24 08/28/24 History ondansetron HCL [Zofran] 8 mg PO Q8HR PRN 08/28/24 08/28/24 History Allergies Allergy/AdvReac Type Severity Reaction Status Date / Time sulfamethoxazole AdvReac Unknown STOMACH Verified 08/28/24 20:16 [From Bactrim] PAIN trimethoprim [From Bactrim] AdvReac Unknown STOMACH Verified 08/28/24 20:16 PAIN spironolactone AdvReac Unknown Verified 08/28/24 20:16 [From Aldactone] HORSE SERUM TETANAS Allergy Severe Anaphylaxis Uncoded 08/28/24 20:16 Novacaine Allergy Anaphylaxis Uncoded 08/28/24 20:16 Physical Exam Vitals: Vital Signs Temp Pulse Resp BP Pulse Ox 08/29/24 09:42 59 L 16 104/65 96 08/29/24 08:28 58 L 16 97/63 94 L 08/29/24 05:30 97.6 F 62 16 121/68 97 08/29/24 02:38 57 L 17 113/74 95 08/28/24 23:00 57 L 18 119/81 97 08/28/24 22:00 60 16 110/60 96 08/28/24 21:32 64 16 110/60 95 08/28/24 18:44 61 18 109/75 95 08/28/24 16:13 97.7 F 58 L 18 107/66 95 Intake and Output 08/28/24 08/29/24 08/29/24 22:59 06:59 14:59 Output Total 1150 Balance -1150 Output: Urine 100 Post Void Residual 1050 Other: Weight 74.616 kg Results - Lab Results Most recent lab results Calcium 8.6 mg/dL (8.4-10.2) 08/29/24 05:52 Phosphorus 4.9 mg/dL (2.5-4.5) H 08/29/24 05:52 Magnesium 1.7 mg/dL (1.6-2.3) 08/29/24 05:52 08/29/24 05:52 08/29/24 05:52 Assessment and Plan Plan: Assessment: 1. Acute kidney injury secondary to ATN secondary to hypovolemia/infection. Also noted to have urinary retention overnight and bladder scan this morning showed 300 cc of urine. Creatinine 3.7 on admission and is 3.37 today. No hydronephrosis noted on ultrasound. Left kidney atrophic. 2. Chronic kidney disease stage IIIa with baseline creatinine 1-1.2 secondary to nephrosclerosis. 3. Acute cystitis on antibiotics. 4. Diabetes mellitus. 5. Chronic diastolic CHF with severe pulmonary hypertension, moderate mitral regurgitation. Plan: Maintain IV fluids. Follow-up cultures. Avoid nephrotoxins. Continue to monitor renal function and urine output. Monitor bladder scans closely and insert Navarrete catheter if retaining more than 300 cc of urine persistently. Thank you for the consultation. I will continue to follow the patient with you during her hospital stay.
--- NOTE | 2024-08-29 11:39 | XR ---
EXAMINATION TYPE: XR KUB portable DATE OF EXAM: 08/29/2024 11:29 AM COMPARISON: None. CLINICAL INDICATION: Female, 78 years old with history of JANNETH, TECHNIQUE: Single view of the abdomen. FINDINGS: Small bowel demonstrates no evidence for dilatation or air fluid levels. Gas and fecal material is seen in non-distended colon. No convincing evidence for pneumoperitoneum. No unusual calcifications. The lung bases are clear. The osseous structures are intact. IMPRESSION: 1. Overall nonobstructive bowel gas pattern. [facility], , 08/29/2024 11:36 AM
--- NOTE | 2024-08-29 13:24 | P.PN ---
Subjective Progress Note Date: 08/29/24 History of present illness; 78 year old F with PMH of CKD 3B, CAD, HFrEF EF 25- 30% on 10/2023 Echo, recurrent UTI, DM, Gout, A-Fib (on Eliquis), Hypothyroid, Dementia, Gastritis presents for recheck/abnormal lab. History limited due to patient being very tired and falling asleep during most questions asked. Reports for the last 2 days she has had decreased urine output. States she also has had some suprapubic pain, as well as some dysuria during the last 2 days as well. Denies headache, chest pain, shortness of breath, nausea, vomiting, diarrhea, constipation, abdominal pain, and lower extremity swelling. Labs: WBC 15.3, MCV 102.9, neutrophils 0.5, sodium 134, BUN 65, creatinine 3.73, phosphorus 5.5, AST 193, ALT 129, alkaline phosphatase 146, troponin 0.039, BNP 5550, and TSH 27.2. Imaging: - EKG done in the ER showed heart rate of 71 bpm, atrial fibrillation with aberrant conduction or ventricular premature complexes, right bundle branch block, and QTc 394. 08/29/2024 patient seen and examined at bedside. Patient reported that she is still experiencing suprapubic tenderness but her alertness and wakefulness has improved. WBC 13.6 hemoglobin 11.9 platelet count 308,000 sodium 137 potassium 4 chloride 106 bicarb 23 BUN 64 creatinine 3.37 glucose 55 calcium 8.6 phosphorus 4.9 AST 212 ALT 144 alk phos 144 troponin 0.032 albumin 2.8. Urinalysis show +1 protein large leukocyte Estrace small blood 87 WBC. Digoxin level 2.5. Liver ultrasound reported as suboptimal study to consider CT to explore anechoic area anterior to the left kidney and inferior to the spleen and some fluid collection posterior to the bladder Review of systems: Pertinent positives and negatives as discussed in HPI, a complete review of systems was performed and all other systems are negative. Pertinent imaging and labs reviewed. Physical examination: Vital signs reviewed General: non toxic, no distress, appears at stated age Derm: no unusual rashes/lesions, warm Head: atraumatic, normocephalic, symmetric Eyes: EOMI, anicteric sclera, pupils equal round reactive to light ENT: Nose and ears atraumatic Neck: No cervical lymphadenopathy, trachea midline, supple Mouth: no lip lesion, mucus membranes moist Cardiovascular: S1S2 reg, no murmur Lungs: CTA bilateral, no rhonchi, no rales, no accessory muscle use Abdominal: soft, suprapubic area tender to light palpation, no guarding Ext: muscle strength 5 out of 5 in all 4 extremities grossly, no gross muscle atrophy, no contractures, positive dorsalis pedis pulse bilateral, no e extremity heavenly Neuro: CN II-XI grossly intact, no gross focal neuro deficits Psych: Alert and oriented x3, appropriate affect and mood Assessment and Plan 78 year old F with PMH of CAD, HFrEF EF 25-30% on 10/2023 Echo, recurrent UTI, DM, Gout, A-Fib (on Eliquis), Hypothyroid, Dementia, Gastritis presents for recheck/abnormal lab. Patient is being worked up for JANNETH and acute metabolic encephalopathy. #Acute metabolic encephalopahty: Potentially secondary to uremia versus urinary retention versus UTI versus digoxin toxicity #JANNETH on chronic kidney disease: Potentially postrenal less likely medication side effect -BUN 65, creatinine 3.73 -KUB x-ray -Hold home losartan and metformin -Avoid nephrotoxic agents -Status post 1 L bolus NS in the ED, continue NS 75 cc/h -Straight cath done. Bladder ultrasound to check for retention -PureWick in place - Strict I&O -Nephrology consulted #Transaminitis: -Previously elevated on recent admission - liver u/s reported as suboptimal study to consider CT to explore anechoic area anterior to the left kidney and inferior to the spleen and some fluid collection posterior to the bladder -Continue to monitor CMP -No right upper quadrant pain #Hyperphosphatemia: -In the setting of JANNETH on CKD -Continue to monitor #Elevated troponin, resolved -Patient denying chest pain -Troponin peaked at 0.039 -Elevated in the setting of CKD #Leukocytosis: Potentially reactive versus UTI -WBC 15.3 and neutrophils 12.5 -Patient does admit to increased to prepubic tenderness -UA +1 protein large leukocyte Estrace small blood 87 WBC. - urine culture pending -Continue to monitor CBC -Most recent cultures growing Evelyn and E. coli, possible Evelyn colonization, had pansensitive E. coli, restarted on IV ceftriaxone Chronic Conditions: #. Hypertension: -Hold losartan and torsemide in setting of JANNETH -Continue home metoprolol succinate #. Atrial fibrillation #. Digoxin toxicity -Continue home Eliquis 5 mg p.o. twice daily -Hold digoxin, digoxin level 2.5. Adjust home dose on discharge #. Hyperlipidemia: -Continue home Lipitor 40 mg p.o. at bedtime #. Dementia: -Continue home memantine 5 mg p.o. twice daily #. Hypothyroidism: -Continue home Synthroid 75 mcg p.o. daily - TSH 27, downtrending from previous levels #. Gout: -Changed home allopurinol 300 to allopurinol 100 mg p.o. at bedtime #Diabetes mellitus: -Hold home medication -Started on sliding scale, monitor for hypoglycemia -Accu-Cheks #CAD: -Continue home Plavix 75 mg p.o. at bedtime F: NS 75 cc/h E: None N: Regular diet DVT ppx: Eliquis 5 mg p.o. twice daily GI ppx: Continue home Protonix 40 mg p.o. daily CODE STATUS: Full code Dispo: Pending medical course Najma Barone MD PGY-1/Field Service Engineer Dictation was produced using [employer] dictation software. please excuse any grammatical, word or spelling errors. Patient is severely ill, needs close monitoring. Prognosis guarded. I have seen and evaluated the patient today. Discussed with the resident and a gree with the residents finding and plan as documented in the resident's note. Changes highlighted in blue font. Objective - Vital Signs Vital signs: Vital Signs Temp 97.6 F 08/29/24 05:30 Pulse 62 08/29/24 05:30 Resp 16 08/29/24 05:30 BP 121/68 08/29/24 05:30 Pulse Ox 97 08/29/24 05:30 FiO2 Intake & Output 08/28/24 08/28/24 08/29/24 06:59 18:59 06:59 Output Total 1150 Balance -1150 Weight 74.616 kg Output: Urine 100 Post Void Residual 1050 - Labs CBC & Chem 7: 08/29/24 05:52 08/29/24 05:52 Labs: Abnormal Lab Results - Last 24 Hours (Table) 08/28/24 08/28/24 08/28/24 Range/Units 17:56 17:56 17:56 WBC 15.3 H (3.8-10.6) k/uL RBC (3.80-5.40) m/uL MCV 102.9 H (80.0-100.0) fL MCHC (31.0-37.0) g/dL RDW (11.5-15.5) % Neutrophils # 12.5 H (1.3-7.7) k/uL Sodium 134 L (137-145) mmol/L BUN 65 H (7-17) mg/dL Creatinine 3.73 H (0.52-1.04) mg/dL Phosphorus 5.5 H (2.5-4.5) mg/dL AST 193 H (14-36) U/L ALT 129 H (4-34) U/L Alkaline Phosphatase 146 H (38-126) U/L Troponin I 0.039 H* (0.000-0.034) ng/mL Total Protein 5.4 L (6.3-8.2) g/dL Albumin 2.9 L (3.5-5.0) g/dL TSH 27.200 H (0.465-4.680) mIU/L Urine Protein (Negative) Urine Blood (Negative) Ur Leukocyte Esterase (Negative) Urine RBC (0-5) /hpf Urine WBC (0-5) /hpf Urine Bacteria (None) /hpf 08/29/24 08/29/24 Range/Units 02:35 05:52 WBC 13.6 H (3.8-10.6) k/uL RBC 3.71 L (3.80-5.40) m/uL MCV 104.0 H (80.0-100.0) fL MCHC 30.7 L (31.0-37.0) g/dL RDW 15.9 H (11.5-15.5) % Neutrophils # 11.1 H (1.3-7.7) k/uL Sodium (137-145) mmol/L BUN (7-17) mg/dL Creatinine (0.52-1.04) mg/dL Phosphorus (2.5-4.5) mg/dL AST (14-36) U/L ALT (4-34) U/L Alkaline Phosphatase (38-126) U/L Troponin I (0.000-0.034) ng/mL Total Protein (6.3-8.2) g/dL Albumin (3.5-5.0) g/dL TSH (0.465-4.680) mIU/L Urine Protein 1+ H (Negative) Urine Blood Small H (Negative) Ur Leukocyte Esterase Large H (Negative) Urine RBC 7 H (0-5) /hpf Urine WBC 87 H (0-5) /hpf Urine Bacteria Rare H (None) /hpf
[2024-08-29 20:42] LABS: Glucose,Whole Blood 66 mg/dL (70-110)
[2024-08-29] MEDS: CLOPIDOGREL 75 MG TAB PO SCH (20:45)
[2024-08-29] MEDS: allopurinoL 300 MG TAB PO SCH (20:45)
[2024-08-29] MEDS: METOPROLOL SUCCINATE (ER) 100 MG TAB.ER.24H PO SCH (20:45)
[2024-08-29] MEDS: METOPROLOL SUCCINATE (ER) 50 MG TAB.ER.24H PO SCH (20:46)
[2024-08-29] MEDS: ATORVASTATIN 40 MG TAB PO SCH (20:46)
[2024-08-29] MEDS: FLUoxetine HCL 20 MG CAP PO SCH (20:46)
[2024-08-29 21:14] LABS: Glucose,Whole Blood 81 mg/dL (70-110)
[2024-08-30 06:08] LABS: Glucose,Whole Blood 103 mg/dL (70-110)
[2024-08-30 09:58] LABS: Anisocytosis Slight; Basophils # (A) 0.1 k/uL (0-0.2); Basophils % (A) 1 %; Eosinophils # (A) 0.3 k/uL (0-0.7); Eosinophils % (A) 3 %; HCT 38.5 % (34.0-46.0); Hypochromasia Moderate; Lymphocytes # (A) 1.1 k/uL (1.0-4.8); Lymphocytes % (A) 11 %; MCH 32.9 pg (25.0-35.0); MCHC 31.1 g/dL (31.0-37.0); MCV 105.7 fL (80.0-100.0); Macrocytosis Moderate; Mean Platelet Volume 8.9; Monocytes # (A) 0.4 k/uL (0-1.0); Monocytes % (A) 4 %; Neutrophils # (A) 7.9 k/uL (1.3-7.7); Neutrophils % (A) 81 %; Platelet Count 303 k/uL (150-450); RBC 3.64 m/uL (3.80-5.40); RDW 16.1 % (11.5-15.5); WBC 9.9 k/uL (3.8-10.6)
[2024-08-30 10:12] LABS: ALT 204 U/L (4-34); AST 417 U/L (14-36); African American GFR (CKD) 27 (>60 ml/min/1.73 sqM); Albumin 2.8 g/dL (3.5-5.0); Alkaline Phosphatase 203 U/L (38-126); Anion Gap 7 mmol/L; Blood Urea Nitrogen 53 mg/dL (7-17); Calcium 8.8 mg/dL (8.4-10.2); Carbon Dioxide 22 mmol/L (22-30); Chloride 110 mmol/L (98-107); Glucose 135 mg/dL (74-99); Magnesium 1.7 mg/dL (1.6-2.3); Non-African American GFR(CKD) 23 (>60 ml/min/1.73 sqM); Sodium 139 mmol/L (137-145); Total Bilirubin 0.6 mg/dL (0.2-1.3); Total Protein 5.4 g/dL (6.3-8.2)
[2024-08-30 11:39] LABS: Glucose,Whole Blood 127 mg/dL (70-110)
--- NOTE | 2024-08-30 12:47 | P.PN ---
Subjective patient is seen for follow-up for acute kidney injury. Renal function is improving. Patient is maintained on IV fluids. Serum creatinine decreased to 2.0 from 3.3 yesterday. Patient is pleasantly confused Objective - Vital Signs Vital signs: Vital Signs Temp 97.5 F L 08/30/24 08:20 Pulse 69 08/30/24 08:20 Resp 17 08/30/24 08:20 BP 124/70 08/30/24 08:20 Pulse Ox 95 08/30/24 08:35 FiO2 Intake & Output 08/29/24 08/30/24 08/30/24 18:59 06:59 18:59 Output Total 800 300 Balance -800 -300 Weight 75 kg Output: Urine 800 300 Other: Voiding Method Indwelling Catheter Indwelling Catheter # Bowel Movements 1 - Exam patient is awake, comfortable, no acute distress. Examination of the heart S1 and S2 Examination of the lungs bilateral breath sounds are heard Abdomen is soft nontender Examination of lower extremities shows no evidence of edema Patient is pleasantly confused. Moving all 4 extremities. - Labs CBC & Chem 7: 08/30/24 09:13 08/30/24 09:13 Labs: Abnormal Lab Results - Last 24 Hours (Table) 08/29/24 08/30/24 08/30/24 Range/Units 20:40 09:13 09:13 RBC 3.64 L (3.80-5.40) m/uL MCV 105.7 H (80.0-100.0) fL RDW 16.1 H (11.5-15.5) % Neutrophils # 7.9 H (1.3-7.7) k/uL Chloride 110 H (98-107) mmol/L BUN 53 H (7-17) mg/dL Creatinine 2.01 H (0.52-1.04) mg/dL Glucose 135 H (74-99) mg/dL POC Glucose (mg/dL) 66 L (70-110) mg/dL AST 417 H (14-36) U/L ALT 204 H (4-34) U/L Alkaline Phosphatase 203 H (38-126) U/L Total Protein 5.4 L (6.3-8.2) g/dL Albumin 2.8 L (3.5-5.0) g/dL 08/30/24 Range/Units 11:35 RBC (3.80-5.40) m/uL MCV (80.0-100.0) fL RDW (11.5-15.5) % Neutrophils # (1.3-7.7) k/uL Chloride (98-107) mmol/L BUN (7-17) mg/dL Creatinine (0.52-1.04) mg/dL Glucose (74-99) mg/dL POC Glucose (mg/dL) 127 H (70-110) mg/dL AST (14-36) U/L ALT (4-34) U/L Alkaline Phosphatase (38-126) U/L Total Protein (6.3-8.2) g/dL Albumin (3.5-5.0) g/dL Microbiology - Last 24 Hours (Table) 08/29/24 06:26 Urine Culture - Final Urine,Catheterized Assessment and Plan Assessment: 1. Acute kidney injury secondary to ATN secondary to hypovolemia/infection. Also noted to have urinary retention overnight and bladder scan this morning showed 300 cc of urine. Creatinine 3.7 on admission and is 3.37 today. No hydronephrosis noted on ultrasound. Left kidney atrophic. 2. Chronic kidney disease stage IIIa with baseline creatinine 1-1.2 secondary to nephrosclerosis. 3. Acute cystitis on antibiotics. 4. Diabetes mellitus. 5. Chronic diastolic CHF with severe pulmonary hypertension, moderate mitral regurgitation. 6. Urine retention with indwelling Navarrete catheter Plan: continue with IV fluids. Repeat labs in a.m.
--- NOTE | 2024-08-30 14:22 | P.PN ---
Subjective Progress Note Date: 08/30/24 History of present illness; 78 year old F with PMH of CKD 3B, CAD, HFrEF EF 25- 30% on 10/2023 Echo, recurrent UTI, DM, Gout, A-Fib (on Eliquis), Hypothyroid, Dementia, Gastritis presents for recheck/abnormal lab. History limited due to patient being very tired and falling asleep during most questions asked. Reports for the last 2 days she has had decreased urine output. States she also has had some suprapubic pain, as well as some dysuria during the last 2 days as well. Denies headache, chest pain, shortness of breath, nausea, vomiting, diarrhea, constipation, abdominal pain, and lower extremity swelling. Labs: WBC 15.3, MCV 102.9, neutrophils 0.5, sodium 134, BUN 65, creatinine 3.73, phosphorus 5.5, AST 193, ALT 129, alkaline phosphatase 146, troponin 0.039, BNP 5550, and TSH 27.2. Imaging: - EKG done in the ER showed heart rate of 71 bpm, atrial fibrillation with aberrant conduction or ventricular premature complexes, right bundle branch block, and QTc 394. 08/29/2024 patient seen and examined at bedside. Patient reported that she is still experiencing suprapubic tenderness but her alertness and wakefulness has improved. WBC 13.6 hemoglobin 11.9 platelet count 308,000 sodium 137 potassium 4 chloride 106 bicarb 23 BUN 64 creatinine 3.37 glucose 55 calcium 8.6 phosphorus 4.9 AST 212 ALT 144 alk phos 144 troponin 0.032 albumin 2.8. Urinalysis show +1 protein large leukocyte Estrace small blood 87 WBC. Digoxin level 2.5. Liver ultrasound reported as suboptimal study to consider CT to explore anechoic area anterior to the left kidney and inferior to the spleen and some fluid collection posterior to the bladder 08/30/2024 patient seen and examined at bedside. On interview, patient is confused. Per patient, she reported that her suprapubic pain is gone but she still feels some bladder fullness despite having a catheter. WBC 9.9 hemoglobin 12 platelet count 303,000 sodium 139 potassium 4 chloride 110 bicarb 22 BUN 53 creatinine 2. 01 glucose 135 calcium 8.8 AST 417 ALT 204 alk phos 203 albumin 2.8. KUB x-ray was negative for stones Review of systems: Pertinent positives and negatives as discussed in HPI, a complete review of systems was performed and all other systems are negative. Pertinent imaging and labs reviewed. Physical examination: Vital signs reviewed General: non toxic, no distress, appears at stated age Derm: no unusual rashes/lesions, warm Head: atraumatic, normocephalic, symmetric Eyes: EOMI, anicteric sclera, pupils equal round reactive to light ENT: Nose and ears atraumatic Neck: No cervical lymphadenopathy, trachea midline, supple Mouth: no lip lesion, mucus membranes moist Cardiovascular: S1S2 reg, no murmur Lungs: CTA bilateral, no rhonchi, no rales, no accessory muscle use Abdominal: soft, suprapubic area tender to light palpation, no guarding Ext: muscle strength 5 out of 5 in all 4 extremities grossly, no gross muscle atrophy, no contractures, positive dorsalis pedis pulse bilateral, no e extremity heavenly Neuro: CN II-XI grossly intact, no gross focal neuro deficits Psych: Alert but confused, appropriate affect and mood Assessment and Plan 78 year old F with PMH of CAD, HFrEF EF 25-30% on 10/2023 Echo, recurrent UTI, DM, Gout, A-Fib (on Eliquis), Hypothyroid, Dementia, Gastritis presents for recheck/abnormal lab. Patient is being worked up for JANNETH and acute metabolic encephalopathy. #Acute metabolic encephalopahty: Potentially secondary to uremia versus urinary retention versus UTI versus digoxin toxicity #JANNETH on chronic kidney disease: Potentially postrenal less likely medication side effect, improving -KUB x-ray was negative for stones -Hold home losartan allopurinol, and metformin -Avoid nephrotoxic agents -Status post 1 L bolus NS in the ED -continue NS 75 cc/h -Straight cath done. Bladder ultrasound to check for retention -On Navarrete catheter - Strict I&O -Fall precautions -Nephrology following -Mental status not at baseline #Transaminitis -Previously elevated on recent admission. Still continues to be elevated today. Patient experiences no right upper quadrant pain - liver u/s reported as suboptimal study to consider CT to explore anechoic area anterior to the left kidney and inferior to the spleen and some fluid collection posterior to the bladder -GGT levels -Continue to monitor CMP #Hyperphosphatemia: -In the setting of JANNETH on CKD -Continue to monitor #Elevated troponin, resolved -Patient denying chest pain -Troponin peaked at 0.039 -Elevated in the setting of CKD #Leukocytosis: Potentially reactive versus UTI -WBC 15.3 and neutrophils 12.5 -Patient does admit to increased to prepubic tenderness -UA +1 protein large leukocyte Estrace small blood 87 WBC. - urine culture pending -Continue to monitor CBC -Most recent cultures growing Evelyn and E. coli, possible Evelyn colonization, had pansensitive E. coli, restarted on IV ceftriaxone -Continue IV ceftriaxone 2 g IVPB daily on day 3 Chronic Conditions: #. Hypertension: -Hold losartan and torsemide in setting of JANNETH -Continue home metoprolol succinate #. Atrial fibrillation #. Digoxin toxicity -Continue home Eliquis 5 mg p.o. twice daily -Hold digoxin, digoxin level 2.5. Adjust home dose on discharge #. Hyperlipidemia: -Continue home Lipitor 40 mg p.o. at bedtime #. Dementia: -Continue home memantine 5 mg p.o. twice daily #. Hypothyroidism: -Continue home Synthroid 75 mcg p.o. daily - TSH 27, downtrending from previous levels #. Gout: -Changed home allopurinol 300 to allopurinol 100 mg p.o. at bedtime #Diabetes mellitus: -Hold home medication -Started on sliding scale, monitor for hypoglycemia -Accu-Cheks #CAD: -Continue home Plavix 75 mg p.o. at bedtime F: NS 75 cc/h E: None N: Regular diet DVT ppx: Eliquis 5 mg p.o. twice daily GI ppx: Continue home Protonix 40 mg p.o. daily CODE STATUS: Full code Dispo: Pending medical course Najma Barone MD PGY-1/[employer] Dictation was produced using [employer] dictation software. please excuse any grammatical, word or spelling errors. I have seen and evaluated the patient today. Discussed with the resident and agree with the residents finding and plan as documented in the resident's note. Changes highlighted in blue font. Objective - Vital Signs Vital signs: Vital Signs Temp 97.5 F L 08/30/24 08:20 Pulse 69 08/30/24 08:20 Resp 17 08/30/24 08:20 BP 124/70 08/30/24 08:20 Pulse Ox 95 08/30/24 08:35 FiO2 Intake & Output 08/29/24 08/30/24 08/30/24 18:59 06:59 18:59 Intake Total 118 Output Total 800 300 Balance -800 -300 118 Weight 75 kg Intake: Oral 118 Output: Urine 800 300 Other: Voiding Method Indwelling Catheter Indwelling Catheter # Bowel Movements 1 - Labs CBC & Chem 7: 08/30/24 09:13 08/30/24 09:13 Labs: Abnormal Lab Results - Last 24 Hours (Table) 08/29/24 08/30/24 08/30/24 Range/Units 20:40 09:13 09:13 RBC 3.64 L (3.80-5.40) m/uL MCV 105.7 H (80.0-100.0) fL RDW 16.1 H (11.5-15.5) % Neutrophils # 7.9 H (1.3-7.7) k/uL Chloride 110 H (98-107) mmol/L BUN 53 H (7-17) mg/dL Creatinine 2.01 H (0.52-1.04) mg/dL Glucose 135 H (74-99) mg/dL POC Glucose (mg/dL) 66 L (70-110) mg/dL AST 417 H (14-36) U/L ALT 204 H (4-34) U/L Alkaline Phosphatase 203 H (38-126) U/L Total Protein 5.4 L (6.3-8.2) g/dL Albumin 2.8 L (3.5-5.0) g/dL 08/30/24 Range/Units 11:35 RBC (3.80-5.40) m/uL MCV (80.0-100.0) fL RDW (11.5-15.5) % Neutrophils # (1.3-7.7) k/uL Chloride (98-107) mmol/L BUN (7-17) mg/dL Creatinine (0.52-1.04) mg/dL Glucose (74-99) mg/dL POC Glucose (mg/dL) 127 H (70-110) mg/dL AST (14-36) U/L ALT (4-34) U/L Alkaline Phosphatase (38-126) U/L Total Protein (6.3-8.2) g/dL Albumin (3.5-5.0) g/dL Microbiology - Last 24 Hours (Table) 08/29/24 06:26 Urine Culture - Final Urine,Catheterized
[2024-08-30 16:41] LABS: Glucose,Whole Blood 352 mg/dL (70-110)
[2024-08-30 16:43] LABS: Glucose,Whole Blood 153 mg/dL (70-110)
[2024-08-30 20:48] LABS: Glucose,Whole Blood 131 mg/dL (70-110)
[2024-08-30] MEDS: ZINC OXIDE PASTE (Z-GUARD) 1 APPLIC TOPICAL PRN (20:52)
[2024-08-31 06:27] LABS: Glucose,Whole Blood 94 mg/dL (70-110)
[2024-08-31 08:51] LABS: ALT 201 U/L (4-34); AST 331 U/L (14-36); African American GFR (CKD) 41 (>60 ml/min/1.73 sqM); Albumin 2.5 g/dL (3.5-5.0); Alkaline Phosphatase 177 U/L (38-126); Anion Gap 6 mmol/L; Blood Urea Nitrogen 37 mg/dL (7-17); Calcium 8.6 mg/dL (8.4-10.2); Carbon Dioxide 20 mmol/L (22-30); Chloride 114 mmol/L (98-107); Glucose 78 mg/dL (74-99); Non-African American GFR(CKD) 35 (>60 ml/min/1.73 sqM); Sodium 140 mmol/L (137-145); Total Bilirubin 0.4 mg/dL (0.2-1.3)
--- NOTE | 2024-08-31 10:48 | P.PN ---
Subjective patient is seen for follow-up for acute kidney injury. Renal function is improving. Patient is maintained on IV fluids. Serum creatinine decreased to 1.4 from 3.7 on admission Patient is pleasantly confused. She is having breakfast Objective - Vital Signs Vital signs: Vital Signs Temp 98.2 F 08/31/24 08:25 Pulse 57 L 08/31/24 08:25 Resp 17 08/31/24 08:25 BP 120/80 08/31/24 08:25 Pulse Ox 96 08/31/24 08:25 FiO2 Intake & Output 08/30/24 08/31/24 08/31/24 18:59 06:59 18:59 Intake Total 236 Output Total 550 800 Balance -314 -800 Weight 71.5 kg Intake: Oral 236 Output: Urine 550 800 Other: Voiding Method Indwelling Catheter Indwelling Catheter Indwelling Catheter - Exam patient is awake, comfortable, no acute distress. Examination of the heart S1 and S2 Examination of the lungs bilateral breath sounds are heard Abdomen is soft nontender Examination of lower extremities shows no evidence of edema Patient is pleasantly confused. Moving all 4 extremities. - Labs CBC & Chem 7: 08/30/24 09:13 08/31/24 08:04 Labs: Abnormal Lab Results - Last 24 Hours (Table) 08/30/24 08/30/24 08/30/24 Range/Units 09:13 11:35 16:39 Chloride (98-107) mmol/L Carbon Dioxide (22-30) mmol/L BUN (7-17) mg/dL Creatinine (0.52-1.04) mg/dL POC Glucose (mg/dL) 127 H 352 H (70-110) mg/dL GGT 203 H (0-38) U/L AST (14-36) U/L ALT (4-34) U/L Alkaline Phosphatase (38-126) U/L Total Protein (6.3-8.2) g/dL Albumin (3.5-5.0) g/dL 08/30/24 08/30/24 08/31/24 Range/Units 16:42 20:46 08:04 Chloride 114 H (98-107) mmol/L Carbon Dioxide 20 L (22-30) mmol/L BUN 37 H (7-17) mg/dL Creatinine 1.43 H (0.52-1.04) mg/dL POC Glucose (mg/dL) 153 H 131 H (70-110) mg/dL GGT (0-38) U/L AST 331 H (14-36) U/L ALT 201 H (4-34) U/L Alkaline Phosphatase 177 H (38-126) U/L Total Protein 5.0 L (6.3-8.2) g/dL Albumin 2.5 L (3.5-5.0) g/dL Microbiology - Last 24 Hours (Table) 08/29/24 06:26 Urine Culture - Final Urine,Catheterized Assessment and Plan Assessment: 1. Acute kidney injury secondary to ATN secondary to hypovolemia/infection and urine retention. Currently with indwelling Navarrete catheter. Creatinine 3.7 on admission and is 1.4 today. No hydronephrosis noted on ultrasound. Left kidney atrophic. 2. Chronic kidney disease stage IIIa with baseline creatinine 1-1.2 secondary to nephrosclerosis. 3. Acute cystitis on antibiotics. 4. Diabetes mellitus. 5. Chronic diastolic CHF with severe pulmonary hypertension, moderate mitral regurgitation. 6. Urine retention with indwelling Nvaarrete catheter Plan: continue with IV fluids, decrease rate Repeat labs in a.m.
[2024-08-31 11:16] LABS: Glucose,Whole Blood 104 mg/dL (70-110)
[2024-08-31 11:49] LABS: Basophils # (A) 0.1 k/uL (0-0.2); Basophils % (A) 2 %; Eosinophils # (A) 0.3 k/uL (0-0.7); Eosinophils % (A) 4 %; HCT 41.4 % (34.0-46.0); HGB 12.5 gm/dL (11.4-16.0); Hypochromasia Marked; Lymphocytes # (A) 1.1 k/uL (1.0-4.8); Lymphocytes % (A) 15 %; MCH 32.3 pg (25.0-35.0); MCHC 30.2 g/dL (31.0-37.0); MCV 106.8 fL (80.0-100.0); Macrocytosis Marked; Mean Platelet Volume 8.2; Monocytes # (A) 0.4 k/uL (0-1.0); Monocytes % (A) 6 %; Neutrophils # (A) 5.2 k/uL (1.3-7.7); Neutrophils % (A) 71 %; Platelet Count 277 k/uL (150-450); RBC 3.87 m/uL (3.80-5.40); RDW 15.5 % (11.5-15.5); WBC 7.3 k/uL (3.8-10.6)
--- NOTE | 2024-08-31 15:39 | P.PN ---
Subjective Progress Note Date: 08/31/24 Subjective: Patient seen and examined at bedside. No acute events overnight. Continues to be encephalopathic. Pertinent positives and negatives as discussed above, a complete review of systems was performed and all other systems are negative. Vitals Signs Reviewed. General: Nontoxic, no distress, appears at stated age Derm: Warm, dry Head: Atraumatic, normocephalic, symmetric Eyes: EOMI, no lid lag, anicteric sclera Mouth: No lip lesion, mucus membranes moist Cardiovascular: S1S2 reg, no murmur Lungs: CTA bilateral, no rhonchi, no rales, no accessory muscle use Abdominal: Soft, nontender to palpation, no guarding, no appreciable organomegaly Ext: No gross muscle atrophy, no edema, no contractures Neuro: CN II-XI grossly intact, no focal neuro deficits Psych: Alert, oriented x 1, appropriate affect Data Reviewed Today: Pertinent Labs: WBC 7.3, hemoglobin 12.5, creatinine 1.43, bicarb 20, AST 331, ALT 201, ALP 177 Imaging: No new imaging Assessment and Plan: #Acute metabolic encephalopahty: Potentially secondary to uremia versus urinary retention versus UTI versus digoxin toxicity #JANNETH on chronic kidney disease: Potentially postrenal less likely medication side effect, improving #Urinary tract infection #Leukocytosis, resolved -Continue to hold nephrotoxic medications -Nephrology note reviewed, normal saline decreased to 50 cc an hour. -Continue ceftriaxone 2 g IV every 24 hours #Transaminitis, improving -Liver ultrasound showed within normal limits #Hyperphosphatemia: -In the setting of JANENTH on CKD -Continue to monitor #Elevated troponin, resolved -Patient denying chest pain -Troponin peaked at 0.039 -Elevated in the setting of CKD Chronic Conditions: #. Hypertension: -Hold losartan and torsemide in setting of JANNETH -Continue home metoprolol succinate #. Atrial fibrillation #. Digoxin toxicity -Continue home Eliquis 5 mg p.o. twice daily -Hold digoxin, digoxin level 2.5. Due to concern for digoxin toxicity #. Hyperlipidemia: -Continue home Lipitor 40 mg p.o. at bedtime #. Dementia: -Continue home memantine 5 mg p.o. twice daily #. Hypothyroidism: -Continue home Synthroid 75 mcg p.o. daily - TSH 27, downtrending from previous levels #. Gout: -Changed home allopurinol 300 to allopurinol 100 mg p.o. at bedtime #Diabetes mellitus: -Hold home medication -Started on sliding scale, monitor for hypoglycemia -Accu-Cheks #CAD: -Continue home Plavix 75 mg p.o. at bedtime DVT ppx: Eliquis Code status: Full code Anticipated discharge place: Pending clinical course Anticipated discharge time: Pending clinical course Objective - Vital Signs Vital signs: Vital Signs Temp 97.9 F 08/31/24 12:00 Pulse 57 L 08/31/24 14:00 Resp 17 08/31/24 14:00 BP 120/64 08/31/24 12:00 Pulse Ox 95 08/31/24 12:00 FiO2 Intake & Output 08/30/24 08/31/24 08/31/24 18:59 06:59 18:59 Intake Total 236 590 Output Total 550 800 Balance -314 -800 590 Weight 71.5 kg Intake: Intake, IV Titration 350 Amount Sodium Chloride 0.9% 1, 300 000 ml @ 50 mls/hr IV . Q20H [facility] Rx#:[id number] cefTRIAXone 2 gm In 50 Sodium Chloride 0.9% 50 ml @ 100 mls/hr IVPB Q24HR [facility] Rx#:[id number] Oral 236 240 Output: Urine 550 800 Other: Voiding Method Indwelling Catheter Indwelling Catheter Indwelling Catheter - Labs CBC & Chem 7: 08/31/24 10:14 08/31/24 08:04 Labs: Abnormal Lab Results - Last 24 Hours (Table) 08/30/24 08/30/24 08/30/24 Range/Units 09:13 16:39 16:42 MCV (80.0-100.0) fL MCHC (31.0-37.0) g/dL Macrocytosis Chloride (98-107) mmol/L Carbon Dioxide (22-30) mmol/L BUN (7-17) mg/dL Creatinine (0.52-1.04) mg/dL POC Glucose (mg/dL) 352 H 153 H (70-110) mg/dL GGT 203 H (0-38) U/L AST (14-36) U/L ALT (4-34) U/L Alkaline Phosphatase (38-126) U/L Total Protein (6.3-8.2) g/dL Albumin (3.5-5.0) g/dL 08/30/24 08/31/24 08/31/24 Range/Units 20:46 08:04 10:14 MCV 106.8 H (80.0-100.0) fL MCHC 30.2 L (31.0-37.0) g/dL Macrocytosis Marked A Chloride 114 H (98-107) mmol/L Carbon Dioxide 20 L (22-30) mmol/L BUN 37 H (7-17) mg/dL Creatinine 1.43 H (0.52-1.04) mg/dL POC Glucose (mg/dL) 131 H (70-110) mg/dL GGT (0-38) U/L AST 331 H (14-36) U/L ALT 201 H (4-34) U/L Alkaline Phosphatase 177 H (38-126) U/L Total Protein 5.0 L (6.3-8.2) g/dL Albumin 2.5 L (3.5-5.0) g/dL Microbiology - Last 24 Hours (Table) 08/29/24 06:26 Urine Culture - Final Urine,Catheterized
[2024-08-31 16:30] LABS: Glucose,Whole Blood 102 mg/dL (70-110)
[2024-08-31 20:01] LABS: Glucose,Whole Blood 117 mg/dL (70-110)
[2024-09-01 06:00] LABS: Glucose,Whole Blood 91 mg/dL (70-110)
[2024-09-01] MEDS: METOPROLOL SUCCINATE (ER) 100 MG TAB.ER.24H PO SCH (08:15)
[2024-09-01 08:42] LABS: Basophils # (A) 0.1 k/uL (0-0.2); Basophils % (A) 1 %; Eosinophils # (A) 0.3 k/uL (0-0.7); Eosinophils % (A) 4 %; HCT 42.5 % (34.0-46.0); HGB 12.5 gm/dL (11.4-16.0); Hypochromasia Marked; Lymphocytes # (A) 1.2 k/uL (1.0-4.8); Lymphocytes % (A) 16 %; MCH 31.8 pg (25.0-35.0); MCHC 29.3 g/dL (31.0-37.0); MCV 108.5 fL (80.0-100.0); Macrocytosis Marked; Mean Platelet Volume 8.3; Monocytes # (A) 0.4 k/uL (0-1.0); Monocytes % (A) 6 %; Neutrophils # (A) 5.4 k/uL (1.3-7.7); Neutrophils % (A) 71 %; Platelet Count 302 k/uL (150-450); RBC 3.92 m/uL (3.80-5.40); RDW 15.9 % (11.5-15.5); WBC 7.6 k/uL (3.8-10.6)
[2024-09-01 10:36] LABS: African American GFR (CKD) 53 (>60 ml/min/1.73 sqM); Anion Gap 6 mmol/L; Blood Urea Nitrogen 25 mg/dL (7-17); Carbon Dioxide 20 mmol/L (22-30); Chloride 117 mmol/L (98-107); Glucose 120 mg/dL (74-99); Magnesium 1.5 mg/dL (1.6-2.3); Non-African American GFR(CKD) 46 (>60 ml/min/1.73 sqM); Potassium 3.7 mmol/L (3.5-5.1); Sodium 143 mmol/L (137-145)
--- NOTE | 2024-09-01 10:44 | P.CRDCN ---
History of Present Illness History of present illness: HISTORY OF PRESENT ILLNESS: This is a 78-year-old female with a past medical history significant for persistent atrial fibrillation, hypertension, hyperlipidemia, coronary artery disease, ischemic cardiomyopathy, and valvular heart disease. Patient follows in the office with Dr. Garibay. We have been asked to see the patient in consultation for atrial fibrillation. Patient examined at the bedside. Patient is admitted to the hospital secondary to urinary tract infection, acute kidney injury, and metabolic encephalopathy. Patient is confused at the time of examination. She denies any chest pain or pressure. Denies any shortness of breath. Vital signs are stable. Telemetry reveals atrial fibrillation with controlled ventricular rate. It is noted that the patient was in the office on August 15, 2024. Patient's metoprolol succinate was increased to 100 mg twice a day and she was started on digoxin 125mcg daily. DIAGNOSTICS: - EKG reveals atrial fibrillation with controlled ventricular rate - Laboratory data: WBC 7.3. Hemoglobin 12.5. Platelet count 277. Sodium 140. Potassium 4.0. BUN 37. Creatinine 1.43. AST 331. ALT 201. Troponin 0.039. 0.032. - Current home cardiac medications include Lipitor 40 mg at night, digoxin 125mcg daily, losartan 12.5 mg daily, metoprolol succinate 150 mg at night although this was recently changed at her office visit, Plavix 75 mg at night, Demadex 20 mg daily, Eliquis 5 mg twice a day - Most recent echocardiogram obtained in August 2024 revealed ejection fraction 50 to 55%, severe pulmonary hypertension, moderate MR, mild to moderate AR, moderate to severe TR, small pericardial effusion - Cardiac catheterization history: October 2023 revealing mid LAD 80%, mild CAD in circumflex and RCA. Patient underwent stenting of the proximal LAD. REVIEW OF SYSTEMS: At the time of my exam: CONSTITUTIONAL: Denies fever or chills. HEENT: Denies blurred vision, vision changes, or eye pain. Denies hemoptysis CARDIOVASCULAR: Denies chest pain. Denies orthopnea. Denies PND. Denies palpitations RESPIRATORY: Denies shortness of breath. GASTROINTESTINAL: Denies abdominal pain. Denies nausea or vomiting. HEMATOLOGIC: Denies bleeding disorders. GENITOURINARY: Denies any blood in urine. SKIN: Denies pruitis. Denies rash. PHYSICAL EXAM: VITAL SIGNS: Reviewed. GENERAL: Well-developed in no acute distress. HEENT: Head is normocephalic. Pupils are equal, round. Sclerae anicteric. Mucous membranes of the mouth are moist. Neck supple. No JVD or thyromegaly LUNGS: Respirations even and unlabored. Lungs essentially clear to auscultation bilaterally. HEART: Irregular rate and rhythm. S1 and S2 heard. ABDOMEN: Soft. Nondistended. Nontender. EXTREMITIES: Normal range of motion. No clubbing or cyanosis. Peripheral p ulses intact. No lower extremity edema NEUROLOGIC: Awake and alert. Pleasantly confused. ASSESSMENT: Acute metabolic encephalopathy Acute kidney injury Minimally elevated troponin, secondary to poor renal clearance, no evidence of myocardial injury or ischemia Urinary tract infection Possible digoxin toxicity Persistent atrial fibrillation with controlled ventricular rate Coronary artery disease with previous stenting to the proximal LAD, October 2023 History of ischemic cardiomyopathy with improved EF Valvular heart disease Transaminitis PLAN: 2D echo obtained and reviewed Change metoprolol succinate to 75 mg twice a day Hold statin due to transaminitis Digoxin has been discontinued Hold Demadex and losartan due to acute kidney injury. Continue to monitor renal function. Nephrology following. Continue telemetry monitoring Further recommendations pending patient course Nurse practitioner note has been reviewed by physician. Signing provider agrees with the documented findings, assessment, and plan of care documented by DATA MODELING ARCHITECT as a scribe. Past Medical History Past Medical History: Atrial Fibrillation, Heart Failure, Dementia, Diabetes Mellitus, GERD/Reflux, Hyperlipidemia, Hypertension, Memory Impairment, Renal Disease, Thyroid Disorder Additional Past Medical History / Comment(s): Sleep Apnea (no machine not working), hx of septicemia, neck, back and shoulder pain, gout, DM 2, metabolic encephalopathy, bedbound over the past month, recurrent UTIs History of Any Multi-Drug Resistant Organisms: None Reported Past Surgical History: Adenoidectomy, Bariatric Surgery, Cholecystectomy, Heart Catheterization With Stent, Hernia Repair, Joint Replacement, Tonsillectomy Additional Past Surgical History / Comment(s): GASTRIC SLEEVE (2010- DR MENDEZ), CARPAL TUNNEL MARILYN, CATARACTS, INGUINAL HERNIA, MARILYN TOTAL KNEES, Bilateral TOTAL HIPs, injections in back for spinal stenosis and cervical injections., pain clinic procedures. Past Anesthesia/Blood Transfusion Reactions: Motion Sickness Date of Last Stent Placement:: 11/07/23 Past Psychological History: Anxiety, Depression Smoking Status: Never smoker Past Alcohol Use History: None Reported Past Drug Use History: None Reported Additional Drug Use History / Comment(s): cbd oil in the past. - Past Family History Mother Additional Family Medical History / Comment(s): heart disease Father Family Medical History: Coronary Artery Disease (CAD), CVA/TIA Additional Family Medical History / Comment(s): heart disease Medications and Allergies Home Medications Medication Instructions Recorded Confirmed Type FLUoxetine HCL [PROzac] 60 mg PO HS 08/02/20 08/28/24 History Zafirlukast [Accolate] 20 mg PO BID 08/02/20 08/28/24 History allopurinoL [Zyloprim] 300 mg PO HS 08/02/20 08/28/24 History Apixaban [Eliquis] 5 mg PO BID #60 tab 10/16/23 08/28/24 Rx Memantine [Namenda] 5 mg PO BID tab 03/24/24 08/28/24 Rx Levothyroxine Sodium [Synthroid] 75 mcg PO DAILY@0600 05/08/24 08/28/24 History Nitroglycerin Sl Tabs [Nitrostat] 0.4 mg SL Q5M PRN 05/08/24 08/28/24 History Bismuth Subsalicylate 524 mg PO Q4H PRN 06/25/24 08/28/24 History [Pepto-Bismol] L.acidoph,Paracasei, B.lactis 1 cap PO DAILY 06/25/24 08/28/24 History [Probiotic] Pantoprazole Sodium [Protonix] 40 mg PO DAILY@0600 06/25/24 08/28/24 History Promethazine HCl 12.5 mg PO AC-TID@07,11,16 06/25/24 08/28/24 History metFORMIN HCL [Glucophage] 500 mg PO BID 06/25/24 08/28/24 History Calcium Carbonate [Tums] 500 mg PO QID PRN 08/05/24 08/28/24 History Estradiol Cream [Estrace Cream 1 gm VAGINAL MOTH 08/05/24 08/28/24 History 0.01%] Methenamine Hippurate 1 gm PO BID 08/05/24 08/28/24 History Digoxin [Digitek] 125 mcg PO DIRECTED 08/16/24 08/28/24 History Atorvastatin [Lipitor] 40 mg PO HS tab 08/21/24 08/28/24 Rx Fluconazole [Diflucan] 100 mg PO DAILY #10 tab 08/21/24 08/28/24 Rx Losartan [Cozaar] 12.5 mg PO DAILY tab 08/21/24 08/28/24 Rx Clopidogrel [Plavix] 75 mg PO HS 08/28/24 08/28/24 History Cranberry 450mg 1 tab PO DAILY 08/28/24 08/28/24 History Metoprolol Succinate (ER) [Toprol 100 mg PO HS 08/28/24 08/28/24 History XL] Metoprolol Succinate (ER) [Toprol 50 mg PO HS 08/28/24 08/28/24 History Xl] Torsemide [Demadex] 20 mg PO DAILY@0600 08/28/24 08/28/24 History ondansetron HCL [Zofran] 8 mg PO Q8HR PRN 08/28/24 08/28/24 History Allergies Allergy/AdvReac Type Severity Reaction Status Date / Time sulfamethoxazole AdvReac Unknown STOMACH Verified 08/28/24 20:16 [From Bactrim] PAIN trimethoprim [From Bactrim] AdvReac Unknown STOMACH Verified 08/28/24 20:16 PAIN spironolactone AdvReac Unknown Verified 08/28/24 20:16 [From Aldactone] HORSE SERUM TETANAS Allergy Severe Anaphylaxis Uncoded 08/28/24 20:16 Novacaine Allergy Anaphylaxis Uncoded 08/28/24 20:16 Physical Exam Vitals: Vital Signs Temp Pulse Resp BP Pulse Ox 09/01/24 04:05 97.4 F L 66 20 124/71 94 L 08/31/24 23:00 75 18 142/88 98 08/31/24 19:50 97.5 F L 63 14 134/82 96 08/31/24 16:10 98.5 F 66 17 119/68 96 08/31/24 14:00 57 L 17 08/31/24 12:00 97.9 F 69 17 120/64 95 08/31/24 08:25 98.2 F 57 L 17 120/80 96 08/31/24 08:21 95 Intake and Output 08/31/24 09/01/24 09/01/24 22:59 06:59 14:59 Intake Total 120 Output Total 750 Balance 120 -750 Intake: Oral 120 Output: Urine 750 Other: Voiding Method Indwelling Catheter Indwelling Catheter # Bowel Movements 0 Weight 70 kg Results 09/01/24 08:13 09/01/24 08:13 Cardiac Enzymes 08/31/24 Range/Units 08:04 AST 331 H (14-36) U/L CBC 08/31/24 Range/Units 10:14 WBC 7.3 (3.8-10.6) k/uL RBC 3.87 (3.80-5.40) m/uL Hgb 12.5 (11.4-16.0) gm/dL Hct 41.4 (34.0-46.0) % Plt Count 277 (150-450) k/uL Comprehensive Metabolic Panel 08/31/24 Range/Units 08:04 Sodium 140 (137-145) mmol/L Potassium 4.0 (3.5-5.1) mmol/L Chloride 114 H (98-107) mmol/L Carbon Dioxide 20 L (22-30) mmol/L BUN 37 H (7-17) mg/dL Creatinine 1.43 H (0.52-1.04) mg/dL Glucose 78 (74-99) mg/dL Calcium 8.6 (8.4-10.2) mg/dL AST 331 H (14-36) U/L ALT 201 H (4-34) U/L Alkaline Phosphatase 177 H (38-126) U/L Total Protein 5.0 L (6.3-8.2) g/dL Albumin 2.5 L (3.5-5.0) g/dL Current Medications Generic Name Dose Route Start Last Admin Trade Name Dipeshq PRN Reason Stop Dose Admin Allopurinol 100 mg 08/29/24 21:00 08/31/24 19:55 Allopurinol 300 Mg Tab PO 100 mg HS CLIVE Administration Apixaban 5 mg 08/29/24 09:00 08/31/24 19:55 Apixaban 5 Mg Tab PO 5 mg BID CLIVE Administration Protocol Atorvastatin Calcium 40 mg 08/29/24 21:00 08/31/24 19:55 Atorvastatin 40 Mg Tab PO 40 mg HS CLIVE Administration Clopidogrel Bisulfate 75 mg 08/29/24 21:00 08/31/24 19:55 Clopidogrel 75 Mg Tab PO 75 mg HS CLIVE Administration Fluoxetine HCl 60 mg 08/29/24 21:00 08/31/24 19:55 Fluoxetine Hcl 20 Mg Cap PO 60 mg HS CLIVE Administration Sodium Chloride 1,000 mls @ 50 mls/hr 08/28/24 19:00 08/31/24 19:54 Saline 0.9% IV 50 mls/hr .Q20H CLIVE Administration Ceftriaxone Sodium 2 gm/ 50 mls @ 100 mls/hr 08/29/24 09:00 08/31/24 08:57 Sodium Chloride IVPB 100 mls/hr Q24HR CLIVE Administration Protocol Levothyroxine Sodium 75 mcg 08/29/24 06:00 09/01/24 06:23 Levothyroxine 75 Mcg Tab PO 75 mcg DAILY@0600 CLIVE Administration Memantine 5 mg 08/29/24 09:00 08/31/24 19:55 Memantine 5 Mg Tab PO 5 mg BID CLIVE Administration Metoprolol Succinate 50 mg 08/29/24 21:00 08/31/24 19:55 Metoprolol Succinate (Er) 50 Mg Tab.Er.24h PO 50 mg HS CLIVE Administration Metoprolol Succinate 100 mg 08/29/24 21:00 08/31/24 19:55 Metoprolol Succinate (Er) 100 Mg Tab.Er.24h PO 100 mg HS CLIVE Administration Montelukast Sodium 10 mg 08/29/24 09:00 08/31/24 08:57 Montelukast 10 Mg Tab PO 10 mg DAILY CLIVE Administration Naloxone HCl 0.2 mg 08/28/24 18:55 Naloxone 0.4 Mg/Ml 1 Ml Vial IV Q2M PRN Opioid Reversal Ondansetron HCl 4 mg 08/28/24 18:55 Ondansetron 4 Mg/2 Ml Vial IVP Q8HR PRN Nausea And Vomiting Pantoprazole Sodium 40 mg 08/29/24 06:00 09/01/24 06:23 Pantoprazole 40 Mg Tablet PO 40 mg DAILY@0600 CLIVE Administration Petrolatum 1 applic 08/30/24 06:16 08/30/24 20:52 Zinc Oxide Paste (Z-Guard) 1 Applic TOPICAL 1 applic BID PRN Administration Wound Healing Protocol Intake and Output 08/31/24 09/01/24 09/01/24 22:59 06:59 14:59 Intake Total 120 Output Total 750 Balance 120 -750 Intake: Oral 120 Output: Urine 750 Other: Voiding Method Indwelling Catheter Indwelling Catheter # Bowel Movements 0 Weight 70 kg 08/31/24 10:14 08/31/24 08:04
[2024-09-01 11:17] LABS: Glucose,Whole Blood 196 mg/dL (70-110)
--- NOTE | 2024-09-01 11:21 | P.PN ---
Subjective patient is seen for follow-up for acute kidney injury. Renal function is improving. Patient is maintained on IV fluids. Serum creatinine decreased to 1.1 from 3.7 on admission Patient is pleasantly confused. Objective - Vital Signs Vital signs: Vital Signs Temp 97.4 F L 09/01/24 08:00 Pulse 65 09/01/24 08:00 Resp 18 09/01/24 08:00 BP 114/67 09/01/24 08:00 Pulse Ox 94 L 09/01/24 08:00 FiO2 Intake & Output 08/31/24 09/01/24 09/01/24 18:59 06:59 18:59 Intake Total 710 180 Output Total 450 750 Balance 260 -750 180 Weight 70 kg Intake: Intake, IV Titration 350 Amount Sodium Chloride 0.9% 1, 300 000 ml @ 50 mls/hr IV . Q20H CLIVE Rx#:[id number] cefTRIAXone 2 gm In 50 Sodium Chloride 0.9% 50 ml @ 100 mls/hr IVPB Q24HR CLIVE Rx#:[id number] Oral 360 180 Output: Urine 450 750 Other: Voiding Method Indwelling Catheter Indwelling Catheter Indwelling Catheter # Bowel Movements 0 - Exam patient is awake, comfortable, no acute distress. Examination of the heart S1 and S2 Examination of the lungs bilateral breath sounds are heard Abdomen is soft nontender Examination of lower extremities shows no evidence of edema Patient is pleasantly confused. Moving all 4 extremities. - Labs CBC & Chem 7: 09/01/24 08:13 09/01/24 08:13 Labs: Abnormal Lab Results - Last 24 Hours (Table) 08/31/24 08/31/24 09/01/24 Range/Units 10:14 19:59 08:13 MCV 106.8 H 108.5 H (80.0-100.0) fL MCHC 30.2 L 29.3 L (31.0-37.0) g/dL RDW 15.9 H (11.5-15.5) % Macrocytosis Marked A Marked A Chloride (98-107) mmol/L Carbon Dioxide (22-30) mmol/L BUN (7-17) mg/dL Creatinine (0.52-1.04) mg/dL Glucose (74-99) mg/dL POC Glucose (mg/dL) 117 H (70-110) mg/dL Magnesium (1.6-2.3) mg/dL 09/01/24 09/01/24 Range/Units 08:13 11:16 MCV (80.0-100.0) fL MCHC (31.0-37.0) g/dL RDW (11.5-15.5) % Macrocytosis Chloride 117 H (98-107) mmol/L Carbon Dioxide 20 L (22-30) mmol/L BUN 25 H (7-17) mg/dL Creatinine 1.15 H (0.52-1.04) mg/dL Glucose 120 H (74-99) mg/dL POC Glucose (mg/dL) 196 H (70-110) mg/dL Magnesium 1.5 L (1.6-2.3) mg/dL Assessment and Plan Assessment: 1. Acute kidney injury secondary to ATN secondary to hypovolemia/infection and urine retention. Currently with indwelling Navarrete catheter. Creatinine 3.7 on admission and is 1.4 today. No hydronephrosis noted on ultrasound. Left kidney atrophic. 2. Chronic kidney disease stage IIIa with baseline creatinine 1-1.2 secondary to nephrosclerosis. 3. A. fib with controlled heart rate 4. Diabetes mellitus. 5. Chronic diastolic CHF with severe pulmonary hypertension, moderate mitral regurgitation. 6. Urine retention with indwelling Navarrete catheter Plan: DC IV fluids if tolerating oral intake
--- NOTE | 2024-09-01 11:25 | P.CNNES ---
History of Present Illness Consult date: 09/01/24 Reason for Consult: altered mental status Chief complaint: "I feel confused" History of Present Illness: Ms. Brito is a 78-year-old female with history of chronic kidney disease, coronary artery disease, CHF with ejection fraction of 25 to 50%, urinary tract infections, gastroesophageal reflux disease, diabetes, gout, atrial fibrillation, hypothyroidism, dementia for which she takes Namenda, atrial fibrillation who was admitted to [facility] on August 28 as she was confused and falling asleep during interviewing. She had been complaining of some decreased urine output as well as dysuria over the past couple of days and was noted to have a urinary tract infection with 87 white blood cells and large leukocyte esterase for which she is currently on ceftriaxone 75 mg daily. It has been noted that she has been "pleasantly confused" by staff during the day and neurology was consulted for further management recommendations. Such as by nursing staff she does not appear to be sleeping well and sleeps mostly during the day. She the patient does not denies any significant hallucinations or significant paranoia however she does say she is "placed in strange places". Review of Systems Constitutional: Reports as per HPI Neurological: Reports confusion Past Medical History Past Medical History: Atrial Fibrillation, Heart Failure, Dementia, Diabetes Mellitus, GERD/Reflux, Hyperlipidemia, Hypertension, Memory Impairment, Renal Disease, Thyroid Disorder Additional Past Medical History / Comment(s): Sleep Apnea (no machine not working), hx of septicemia, neck, back and shoulder pain, gout, DM 2, metabolic encephalopathy, bedbound over the past month, recurrent UTIs History of Any Multi-Drug Resistant Organisms: None Reported Past Surgical History: Adenoidectomy, Bariatric Surgery, Cholecystectomy, Heart Catheterization With Stent, Hernia Repair, Joint Replacement, Tonsillectomy Additional Past Surgical History / Comment(s): GASTRIC SLEEVE (2010- DR MENDEZ), CARPAL TUNNEL MARILYN, CATARACTS, INGUINAL HERNIA, MARILYN TOTAL KNEES, Bilateral TOTAL HIPs, injections in back for spinal stenosis and cervical injections., pain clinic procedures. Past Anesthesia/Blood Transfusion Reactions: Motion Sickness Date of Last Stent Placement:: 11/07/23 Past Psychological History: Anxiety, Depression Smoking Status: Never smoker Past Alcohol Use History: None Reported Past Drug Use History: None Reported Additional Drug Use History / Comment(s): cbd oil in the past. - Past Family History Mother Additional Family Medical History / Comment(s): heart disease Father Family Medical History: Coronary Artery Disease (CAD), CVA/TIA Additional Family Medical History / Comment(s): heart disease Medications and Allergies Home Medications Medication Instructions Recorded Confirmed Type FLUoxetine HCL [PROzac] 60 mg PO HS 08/02/20 08/28/24 History Zafirlukast [Accolate] 20 mg PO BID 08/02/20 08/28/24 History allopurinoL [Zyloprim] 300 mg PO HS 08/02/20 08/28/24 History Apixaban [Eliquis] 5 mg PO BID #60 tab 10/16/23 08/28/24 Rx Memantine [Namenda] 5 mg PO BID tab 03/24/24 08/28/24 Rx Levothyroxine Sodium [Synthroid] 75 mcg PO DAILY@0600 05/08/24 08/28/24 History Nitroglycerin Sl Tabs [Nitrostat] 0.4 mg SL Q5M PRN 05/08/24 08/28/24 History Bismuth Subsalicylate 524 mg PO Q4H PRN 06/25/24 08/28/24 History [Pepto-Bismol] L.acidoph,Paracasei, B.lactis 1 cap PO DAILY 06/25/24 08/28/24 History [Probiotic] Pantoprazole Sodium [Protonix] 40 mg PO DAILY@0600 06/25/24 08/28/24 History Promethazine HCl 12.5 mg PO AC-TID@07,11,16 06/25/24 08/28/24 History metFORMIN HCL [Glucophage] 500 mg PO BID 06/25/24 08/28/24 History Calcium Carbonate [Tums] 500 mg PO QID PRN 08/05/24 08/28/24 History Estradiol Cream [Estrace Cream 1 gm VAGINAL MOTH 08/05/24 08/28/24 History 0.01%] Methenamine Hippurate 1 gm PO BID 08/05/24 08/28/24 History Digoxin [Digitek] 125 mcg PO DIRECTED 08/16/24 08/28/24 History Atorvastatin [Lipitor] 40 mg PO HS tab 08/21/24 08/28/24 Rx Fluconazole [Diflucan] 100 mg PO DAILY #10 tab 08/21/24 08/28/24 Rx Losartan [Cozaar] 12.5 mg PO DAILY tab 08/21/24 08/28/24 Rx Clopidogrel [Plavix] 75 mg PO HS 08/28/24 08/28/24 History Cranberry 450mg 1 tab PO DAILY 08/28/24 08/28/24 History Metoprolol Succinate (ER) [Toprol 100 mg PO HS 08/28/24 08/28/24 History XL] Metoprolol Succinate (ER) [Toprol 50 mg PO HS 08/28/24 08/28/24 History Xl] Torsemide [Demadex] 20 mg PO DAILY@0600 08/28/24 08/28/24 History ondansetron HCL [Zofran] 8 mg PO Q8HR PRN 08/28/24 08/28/24 History Allergies Allergy/AdvReac Type Severity Reaction Status Date / Time sulfamethoxazole AdvReac Unknown STOMACH Verified 08/28/24 20:16 [From Bactrim] PAIN trimethoprim [From Bactrim] AdvReac Unknown STOMACH Verified 08/28/24 20:16 PAIN spironolactone AdvReac Unknown Verified 08/28/24 20:16 [From Aldactone] HORSE SERUM TETANAS Allergy Severe Anaphylaxis Uncoded 08/28/24 20:16 Novacaine Allergy Anaphylaxis Uncoded 08/28/24 20:16 Physical Examination - Vital Signs Vital Signs: Vital Signs Temp Pulse Resp BP Pulse Ox 09/01/24 08:00 97.4 F L 65 18 114/67 94 L 09/01/24 04:05 97.4 F L 66 20 124/71 94 L 08/31/24 23:00 75 18 142/88 98 08/31/24 19:50 97.5 F L 63 14 134/82 96 08/31/24 16:10 98.5 F 66 17 119/68 96 08/31/24 14:00 57 L 17 08/31/24 12:00 97.9 F 69 17 120/64 95 Intake and Output 08/31/24 09/01/24 09/01/24 22:59 06:59 14:59 Intake Total 120 180 Output Total 750 Balance 120 -750 180 Intake: Oral 120 180 Output: Urine 750 Other: Voiding Method Indwelling Catheter Indwelling Catheter Indwelling Catheter # Bowel Movements 0 Weight 70 kg - Constitutional General appearance: average body habitus, no acute distress - EENT EENT: PERRL - Respiratory Respiratory: lungs clear - Cardiovascular Cardiovascular: regular rate, no murmurs Extremities: no peripheral edema bilaterally - Gastrointestinal Gastrointestinal: normoactive bowel sounds, non-tender - Neurologic Cranial nerve examination: PERRL, EOMI, face symmetric, tongue midline Speech examination: intact Sensorimotor examination: intact Detailed motor examination: full strength in all major muscle groups Detailed sensory examination: intact Reflex and gait examination: intact - Psychiatric Psychiatric: mood/affect appropriate Results - Laboratory Findings CBC and BMP: 09/01/24 08:13 09/01/24 08:13 Abnormal Lab Findings: Abnormal Labs 08/28/24 08/28/24 08/28/24 17:56 17:56 17:56 WBC 15.3 H RBC MCV 102.9 H MCHC RDW Neutrophils # 12.5 H Macrocytosis Sodium 134 L Chloride Carbon Dioxide BUN 65 H Creatinine 3.73 H Glucose POC Glucose (mg/dL) Phosphorus 5.5 H Magnesium GGT AST 193 H ALT 129 H Alkaline Phosphatase 146 H Troponin I 0.039 H* Total Protein 5.4 L Albumin 2.9 L TSH 27.200 H Urine Protein Urine Blood Ur Leukocyte Esterase Urine RBC Urine WBC Urine Bacteria 08/29/24 08/29/24 08/29/24 02:35 05:52 05:52 WBC 13.6 H RBC 3.71 L MCV 104.0 H MCHC 30.7 L RDW 15.9 H Neutrophils # 11.1 H Macrocytosis Sodium Chloride Carbon Dioxide BUN 64 H Creatinine 3.37 H Glucose 55 L POC Glucose (mg/dL) Phosphorus 4.9 H Magnesium GGT AST 212 H ALT 144 H Alkaline Phosphatase 144 H Troponin I Total Protein 5.2 L Albumin 2.8 L TSH Urine Protein 1+ H Urine Blood Small H Ur Leukocyte Esterase Large H Urine RBC 7 H Urine WBC 87 H Urine Bacteria Rare H 08/29/24 08/30/24 08/30/24 20:40 09:13 09:13 WBC RBC 3.64 L MCV 105.7 H MCHC RDW 16.1 H Neutrophils # 7.9 H Macrocytosis Sodium Chloride 110 H Carbon Dioxide BUN 53 H Creatinine 2.01 H Glucose 135 H POC Glucose (mg/dL) 66 L Phosphorus Magnesium GGT AST 417 H ALT 204 H Alkaline Phosphatase 203 H Troponin I Total Protein 5.4 L Albumin 2.8 L TSH Urine Protein Urine Blood Ur Leukocyte Esterase Urine RBC Urine WBC Urine Bacteria 08/30/24 08/30/24 08/30/24 09:13 11:35 16:39 WBC RBC MCV MCHC RDW Neutrophils # Macrocytosis Sodium Chloride Carbon Dioxide BUN Creatinine Glucose POC Glucose (mg/dL) 127 H 352 H Phosphorus Magnesium GGT 203 H AST ALT Alkaline Phosphatase Troponin I Total Protein Albumin TSH Urine Protein Urine Blood Ur Leukocyte Esterase Urine RBC Urine WBC Urine Bacteria 08/30/24 08/30/24 08/31/24 16:42 20:46 08:04 WBC RBC MCV MCHC RDW Neutrophils # Macrocytosis Sodium Chloride 114 H Carbon Dioxide 20 L BUN 37 H Creatinine 1.43 H Glucose POC Glucose (mg/dL) 153 H 131 H Phosphorus Magnesium GGT AST 331 H ALT 201 H Alkaline Phosphatase 177 H Troponin I Total Protein 5.0 L Albumin 2.5 L TSH Urine Protein Urine Blood Ur Leukocyte Esterase Urine RBC Urine WBC Urine Bacteria 08/31/24 08/31/24 09/01/24 10:14 19:59 08:13 WBC RBC MCV 106.8 H 108.5 H MCHC 30.2 L 29.3 L RDW 15.9 H Neutrophils # Macrocytosis Marked A Marked A Sodium Chloride Carbon Dioxide BUN Creatinine Glucose POC Glucose (mg/dL) 117 H Phosphorus Magnesium GGT AST ALT Alkaline Phosphatase Troponin I Total Protein Albumin TSH Urine Protein Urine Blood Ur Leukocyte Esterase Urine RBC Urine WBC Urine Bacteria 09/01/24 08:13 WBC RBC MCV MCHC RDW Neutrophils # Macrocytosis Sodium Chloride 117 H Carbon Dioxide 20 L BUN 25 H Creatinine 1.15 H Glucose 120 H POC Glucose (mg/dL) Phosphorus Magnesium 1.5 L GGT AST ALT Alkaline Phosphatase Troponin I Total Protein Albumin TSH Urine Protein Urine Blood Ur Leukocyte Esterase Urine RBC Urine WBC Urine Bacteria Assessment and Plan Assessment: Confusion secondary likely to metabolic encephalopathy from urinary tract infection. Plan: #1 I will attempt to regulate this patient's sleep cycle with 5 mg of melatonin in the evening. Number Will hold off on Seroquel for now as the patient does not appear to be actively hallucinating or agitated and I do not want to sedate her during the day. Number next I have also ordered a serum ammonia level to check for other causes for metabolic encephalopathy. Number next will consider an EEG if she exhibits significantly confused behavior or seizure activity. Number next neurology will continue to follow the patient in house and I will see her tomorrow.
[2024-09-01] MEDS ORDERED: DEXTROSE 50% SYRINGE 50 ML IVP PRN ×2 (11:51)
--- NOTE | 2024-09-01 11:54 | P.PN ---
Subjective Progress Note Date: 09/01/24 History of present illness; 78 year old F with PMH of CKD 3B, CAD, HFrEF EF 25- 30% on 10/2023 Echo, recurrent UTI, DM, Gout, A-Fib (on Eliquis), Hypothyroid, Dementia, Gastritis presents for recheck/abnormal lab. History limited due to patient being very tired and falling asleep during most questions asked. Reports for the last 2 days she has had decreased urine output. States she also has had some suprapubic pain, as well as some dysuria during the last 2 days as well. Denies headache, chest pain, shortness of breath, nausea, vomiting, diarrhea, constipation, abdominal pain, and lower extremity swelling. Labs: WBC 15.3, MCV 102.9, neutrophils 0.5, sodium 134, BUN 65, creatinine 3.73, phosphorus 5.5, AST 193, ALT 129, alkaline phosphatase 146, troponin 0.039, BNP 5550, and TSH 27.2. Imaging: - EKG done in the ER showed heart rate of 71 bpm, atrial fibrillation with aberrant conduction or ventricular premature complexes, right bundle branch block, and QTc 394. 08/29/2024 patient seen and examined at bedside. Patient reported that she is still experiencing suprapubic tenderness but her alertness and wakefulness has improved. WBC 13.6 hemoglobin 11.9 platelet count 308,000 sodium 137 potassium 4 chloride 106 bicarb 23 BUN 64 creatinine 3.37 glucose 55 calcium 8.6 phosphorus 4.9 AST 212 ALT 144 alk phos 144 troponin 0.032 albumin 2.8. Urinalysis show +1 protein large leukocyte Estrace small blood 87 WBC. Digoxin level 2.5. Liver ultrasound reported as suboptimal study to consider CT to explore anechoic area anterior to the left kidney and inferior to the spleen and some fluid collection posterior to the bladder 08/30/2024 patient seen and examined at bedside. On interview, patient is confused. Per patient, she reported that her suprapubic pain is gone but she still feels some bladder fullness despite having a catheter. WBC 9.9 hemoglobin 12 platelet count 303,000 sodium 139 potassium 4 chloride 110 bicarb 22 BUN 53 creatinine 2. 01 glucose 135 calcium 8.8 AST 417 ALT 204 alk phos 203 albumin 2.8. KUB x-ray was negative for stones 08/31/2024 Patient seen and examined at bedside. No acute events overnight. Continues to be encephalopathic. WBC 7.3, hemoglobin 12.5, creatinine 1.43, bicarb 20, AST 331, ALT 201, ALP 177 09/01/2024 patient seen and examined at bedside. No acute events overnight. Patient still encephalopathic. Still on a Navarrete catheter. WBC 7.6 hemoglobin 12.5 chloride 117 bicarb 20 BUN 25 creatinine 1.15 calcium 1.5 Review of systems: Pertinent positives and negatives as discussed in HPI, a complete review of systems was performed and all other systems are negative. Pertinent imaging and labs reviewed. Physical examination: Vital signs reviewed General: non toxic, no distress, appears at stated age Derm: no unusual rashes/lesions, warm Head: atraumatic, normocephalic, symmetric Eyes: EOMI, anicteric sclera, pupils equal round reactive to light ENT: Nose and ears atraumatic Neck: No cervical lymphadenopathy, trachea midline, supple Mouth: no lip lesion, mucus membranes moist Cardiovascular: S1S2 reg, no murmur Lungs: CTA bilateral, no rhonchi, no rales, no accessory muscle use Abdominal: soft, suprapubic area tender to light palpation, no guarding Ext: muscle strength 5 out of 5 in all 4 extremities grossly, no gross muscle atrophy, no contractures, positive dorsalis pedis pulse bilateral, no extremity heavenly Neuro: CN II-XI grossly intact, no gross focal neuro deficits Psych: Alert and oriented x 0, appropriate affect and mood Assessment and Plan 78 year old F with PMH of CAD, HFrEF EF 25-30% on 10/2023 Echo, recurrent UTI, DM, Gout, A-Fib (on Eliquis), Hypothyroid, Dementia, Gastritis presents for recheck/abnormal lab. Patient is being worked up for JANNETH and acute metabolic encephalopathy. #Acute metabolic encephalopahty: Potentially secondary to uremia versus urinary retention versus UTI versus digoxin toxicity #JANNETH on chronic kidney disease: Potentially postrenal less likely medication side effect, improving #Urinary tract infection #Leukocytosis, resolved -BUN 65, creatinine 3.73 -KUB x-ray was negative for stones -Echo pending -EEG -Vitamin B12 levels -Hold home losartan allopurinol, and metformin -Avoid nephrotoxic agents -Status post 1 L bolus NS in the ED -IVF NS 50 cc/h. Goal to discontinue if tolerating oral intake -Straight cath done. Bladder ultrasound to check for retention -On Navarrete catheter - Strict I&O -Fall precautions -Nephrology consulted -serum ammonia ordered and 5 mg melatonin for the evening. Hold Seroquel #Transaminitis, improving -Previously elevated on recent admission. Still continues to be elevated today. Patient experiences no right upper quadrant pain - liver u/s reported as suboptimal study to consider CT to explore anechoic area anterior to the left kidney and inferior to the spleen and some fluid collection posterior to the bladder -GGT 203 -Continue to monitor CMP #Hyperphosphatemia -In the setting of JANNETH on CKD -Continue to monitor #Elevated troponin, resolved -Patient denying chest pain -Troponin peaked at 0.039 -Elevated in the setting of CKD #Leukocytosis: Potentially reactive versus UTI, resolved -WBC 7.6 -Patient does admit to increased to prepubic tenderness -UA +1 protein large leukocyte Estrace small blood 87 WBC. - urine culture pending -Continue to monitor CBC -Most recent cultures growing Evelyn and E. coli, possible Evelyn colonization, had pansensitive E. coli, restarted on IV ceftriaxone -Continue IV ceftriaxone 2 g IVPB daily on day 5 Chronic Conditions: #. Hypertension: -Hold losartan and torsemide in setting of JANNETH -Continue home metoprolol succinate #. Atrial fibrillation #. Digoxin toxicity -Continue home Eliquis 5 mg p.o. twice daily -Hold digoxin, digoxin level 2.5. Adjust home dose on discharge #. Hyperlipidemia: -Continue home Lipitor 40 mg p.o. at bedtime #. Dementia: -Continue home memantine 5 mg p.o. twice daily #. Hypothyroidism: -Increase home Synthroid 112 mcg p.o. daily - TSH 27, downtrending from previous levels #. Gout: -Changed home allopurinol 300 to allopurinol 100 mg p.o. at bedtime #Diabetes mellitus: -Hold home medication -Started on sliding scale, monitor for hypoglycemia -Accu-Cheks #CAD: -Continue home Plavix 75 mg p.o. at bedtime F: NS 50 cc/h E: None N: Regular diet DVT ppx: Eliquis 5 mg p.o. twice daily GI ppx: Continue home Protonix 40 mg p.o. daily CODE STATUS: Full code Dispo: Pending medical course Najma Barone MD PGY-1/Supervisor [employer] Dictation was produced using [employer] dictation software. please excuse any grammatical, word or spelling errors. I have seen and evaluated the patient today. Discussed with the resident and agree with the residents finding and plan as documented in the resident's note. Changes highlighted in blue font. Objective - Vital Signs Vital signs: Vital Signs Temp 97.4 F L 09/01/24 04:05 Pulse 66 09/01/24 04:05 Resp 20 09/01/24 04:05 BP 124/71 09/01/24 04:05 Pulse Ox 94 L 09/01/24 04:05 FiO2 Intake & Output 08/31/24 09/01/24 09/01/24 18:59 06:59 18:59 Intake Total 710 Output Total 450 750 Balance 260 -750 Weight 70 kg Intake: Intake, IV Titration 350 Amount Sodium Chloride 0.9% 1, 300 000 ml @ 50 mls/hr IV . Q20H [facility] Rx#:[id number] cefTRIAXone 2 gm In 50 Sodium Chloride 0.9% 50 ml @ 100 mls/hr IVPB Q24HR [facility] Rx#:[id number] Oral 360 Output: Urine 450 750 Other: Voiding Method Indwelling Catheter Indwelling Catheter # Bowel Movements 0 - Labs CBC & Chem 7: 09/01/24 08:13 09/01/24 08:13 Labs: Abnormal Lab Results - Last 24 Hours (Table) 08/31/24 08/31/24 08/31/24 Range/Units 08:04 10:14 19:59 MCV 106.8 H (80.0-100.0) fL MCHC 30.2 L (31.0-37.0) g/dL Macrocytosis Marked A Chloride 114 H (98-107) mmol/L Carbon Dioxide 20 L (22-30) mmol/L BUN 37 H (7-17) mg/dL Creatinine 1.43 H (0.52-1.04) mg/dL POC Glucose (mg/dL) 117 H (70-110) mg/dL AST 331 H (14-36) U/L ALT 201 H (4-34) U/L Alkaline Phosphatase 177 H (38-126) U/L Total Protein 5.0 L (6.3-8.2) g/dL Albumin 2.5 L (3.5-5.0) g/dL
[2024-09-01] MEDS: INSULIN ASPART (NovoLOG) 100 UNIT/ML VIAL SQ SCH (13:46)
--- NOTE | 2024-09-01 15:51 | CDI ---
Documentation Clarification Form Date: 09/01/2024 03:27:36 PM From: Carol Eubanks RN, CCDS Phone: [phone] Admit Date: 08/28/2024 06:56:00 PM Patient Name: Trisha Brito Visit Number: [id number] Discharge Date: ATTENTION: The Clinical Documentation Specialists (CDI) and [facility] Coding Staff appreciate your assistance in clarifying documentation. Please respond to the clarification below the line at the bottom and electronically sign. The CDI & [facility] Coding staff will review the response and follow-up if needed. Please note: Queries are made part of the Legal Health Record. If you have any questions, please contact the author of this message via ITS. Doctor Jose Carrasco Conflicting documentation has been found in the medical record. As attending physician, please provide clarification. 08/29/24 Nephrology consult and subsequent progress notes: Chronic diastolic CHF with severe pulmonary hypertension, moderate mitral regurgitation. 08/29/24 H/P: Assessment PMH: HFrEF EF 25-30% on 10/2023 Echo. 08/18/24 ECHO: LVEF is estimated at 50-55%. Mildly increased posterior wall thickness. Moderate mitral regurgitation Mild to moderate aortic regurgitation, severe pulmonary hypertension, Dilated RV Trace pericardial effusion History/Risk Factors: Atrial Fibrillation, Heart Failure, Dementia, Diabetes Mellitus, GERD/Reflux, Hyperlipidemia, Hypertension, Thyroid Clinical Indicators: 78-year-old female with known history of congestive heart failure, coronary artery disease. - EKG reveals atrial fibrillation with controlled ventricular rate 08/28 Labs: PNB 5550 09/01 Cardiology consult: - Most recent echocardiogram obtained in August 2024 revealed ejection fraction 50 to 55%, severe pulmonary hypertension, moderate MR, mild to moderate AR, moderate to severe TR, small pericardial effusion. Treatment: Cardiac, Telemetry monitoring Metoprolol Succinate 75 MG PO BID Hold demadex and Losartan due to acute kidney injury Monitor renal function Please clarify which diagnosis is most appropriate: [ x ] Chronic Diastolic Congestive heart failure [ ] Chronic Systolic Congestive heart failure [ ] Other (please specify) [ ] Unable to determine (Template Last Revised: December 2020) MTDD
[2024-09-01 16:16] LABS: Glucose,Whole Blood 104 mg/dL (70-110)
[2024-09-01] MEDS: MELATONIN 5 MG TABLET PO SCH (20:00)
[2024-09-01] MEDS: METOPROLOL SUCCINATE (ER) 25 MG TAB.ER.24H PO SCH (20:00)
[2024-09-01 20:04] LABS: Glucose,Whole Blood 114 mg/dL (70-110)
--- NOTE | 2024-09-01 21:37 | EEG ---
ELECTROENCEPHALOGRAM REPORT BRIEF HISTORY: Ms. Brito is a 78-year-old female with history of kidney disease, coronary artery disease, and congestive heart failure, admitted with drowsy mental status with decreased urine output as well as dysuria, found to have urinary tract infection. CURRENT MEDICATIONS: Include, 1. Allopurinol. 2. Eliquis. 3. Ceftriaxone. 4. Prozac. 5. Levothyroxine. 6. Namenda. 7. Metoprolol. 8. Singulair. 9. Chase. CHARACTERIZATION OF RECORD: This 23-minute electroencephalogram was characterized by background rhythm of 4 to 6 Hertz generalized theta activity in addition to some myogenic artifact 10 to 12 Hertz in the bifrontal area. There were some superimposed 10 to 11 Hertz rhythms as well, which possibly suggest benzodiazepine use. Photic stimulation was performed. It did run out, resulting in a driving response and urinary frequency. No distinct sleep features were noted on this electroencephalogram. There was no evidence of photic driving at any frequency. In conclusion, this is an abnormal electroencephalogram secondary to significant background slowing with possible triphasic morphology indicative of a likely metabolic encephalopathy. MMODL / IJN: [id number] /
[2024-09-02 05:57] LABS: Glucose,Whole Blood 84 mg/dL (70-110)
[2024-09-02] MEDS: LEVOTHYROXINE 112 MCG TAB PO SCH (06:15)
[2024-09-02 07:11] LABS: Basophils # (A) 0.1 k/uL (0-0.2); Basophils % (A) 1 %; Eosinophils # (A) 0.3 k/uL (0-0.7); Eosinophils % (A) 5 %; HCT 34.7 % (34.0-46.0); HGB 10.7 gm/dL (11.4-16.0); Hypochromasia Marked; Lymphocytes # (A) 1.2 k/uL (1.0-4.8); Lymphocytes % (A) 19 %; MCH 32.9 pg (25.0-35.0); MCHC 30.8 g/dL (31.0-37.0); MCV 106.8 fL (80.0-100.0); Macrocytosis Marked; Mean Platelet Volume 8.5; Monocytes # (A) 0.4 k/uL (0-1.0); Monocytes % (A) 6 %; Neutrophils # (A) 4.4 k/uL (1.3-7.7); Neutrophils % (A) 68 %; Platelet Count 263 k/uL (150-450); RBC 3.25 m/uL (3.80-5.40); WBC 6.5 k/uL (3.8-10.6)
[2024-09-02 07:35] LABS: ALT 244 U/L (4-34); AST 441 U/L (14-36); African American GFR (CKD) 56 (>60 ml/min/1.73 sqM); Albumin 2.6 g/dL (3.5-5.0); Alkaline Phosphatase 276 U/L (38-126); Anion Gap 4 mmol/L; Blood Urea Nitrogen 18 mg/dL (7-17); Calcium 8.8 mg/dL (8.4-10.2); Carbon Dioxide 23 mmol/L (22-30); Chloride 114 mmol/L (98-107); Glucose 75 mg/dL (74-99); Non-African American GFR(CKD) 49 (>60 ml/min/1.73 sqM); Phosphorus 2.4 mg/dL (2.5-4.5); Potassium 3.6 mmol/L (3.5-5.1); Sodium 141 mmol/L (137-145); Total Bilirubin 0.4 mg/dL (0.2-1.3); Total Protein 5.1 g/dL (6.3-8.2)
[2024-09-02] MEDS: APIXABAN 2.5 MG TABLET PO SCH (09:16)
--- NOTE | 2024-09-02 10:27 | CT ---
EXAMINATION TYPE: CT brain wo con CT DLP: 1096.4 mGycm, Automated exposure control for dose reduction was used. DATE OF EXAM: 09/02/2024 10:19 AM COMPARISON: CT brain C-spine 08/05/2024 CLINICAL INDICATION:Female, 78 years old with history of acute encephalopathy, Acute encephalopathy TECHNIQUE: Brain: Multiple axial CT images of the brain were obtained without IV contrast. . Coronal and sagitta l reformats reviewed. FINDINGS: Brain: Extra-axial spaces: No abnormal extra-axial fluid collections. Ventricular system: Within normal limits Cerebral parenchyma: Age-appropriate mild cerebral volume loss. No acute intraparenchymal hemorrhage or mass effect. The garrison-white junction is well differentiated. Scattered hypoattenuating areas are seen within the periventricular white matter. Empty sella redemonstrated with smooth remodeling and sellar enlargement. Cerebellum: Unremarkable. Mass effect: No evidence of midline shift. Intracranial vasculature: Atherosclerotic calcifications of the intracranial vessels. Soft tissues: Normal. Calvarium/osseous structures: No depressed skull fracture. Paranasal sinuses and mastoid air cells: Clear Visualized orbits: Bilateral aphakia IMPRESSION: 1. No acute intracranial process. 2. Nonspecific white matter changes, likely secondary to chronic small vessel ischemic disease. [facility], , 09/02/2024 10:25 AM
--- NOTE | 2024-09-02 10:48 | P.PN ---
Subjective Progress Note Date: 09/02/24 Principal diagnosis: Altered Mental Status/Metabolic Encephalopathy, Urinary Tract Infection Ms. Brito is a 78-year-old female with history of chronic kidney disease, coronary artery disease, CHF with ejection fraction of 25 to 50%, urinary tract infections, gastroesophageal reflux disease, diabetes, gout, atrial fibrillation, hypothyroidism, dementia for which she takes Namenda, atrial fibrillation who was admitted to [facility] on August 28 as she was confused and falling asleep during interviewing. She had been complaining of some decreased urine output as well as dysuria over the past couple of days and was noted to have a urinary tract infection with 87 white blood cells and large leukocyte esterase for which she is currently on ceftriaxone 75 mg daily. It has been noted that she has been "pleasantly confused" by staff during the day and neurology was consulted for further management recommendations. Such as by nursing staff she does not appear to be sleeping well and sleeps mostly during the day. On 09/01/24 the patient does denied any significant hallucinations or significant paranoia however she does say she is "placed in strange places". On neurology follow-up on September 02, the patient remains sleepy confined to her bed. She does not know she is at hospital but is able to remember this fact after approximately 3 minutes after being told. She is able to follow some simple commands but has difficulty with complex commands. Exam: Her cranial nerves II through XII appear intact confrontation bilaterally. She is able to raise both arms with strength of approximately 4+ to 5- out of 5. Lower extremities will raise her strength of at least 3 out of 5 however there may be some motivational weakness as well. Sensory examination is intact to light touch. Reflex emanation reveals trace to 1+ reflexes and symmetric bi laterally. Pertinent studies include electroencephalogram from September 01 which reveals a background slowing at 4 to 6 Hz with some myogenic artifact in the bifrontal area and superimposed 10 to 11 Hz beta rhythm possibly consistent with benzodiazepine use a CT of the head was performed this morning September 02 which does not rule any acute findings but evidence of a nonspecific small vessel disease. Conclusion: Ms. Brito is a 78-year-old female with admission on August 28 for altered mental status. She has an urinary tract infection and is completed a course of ceftriaxone. Her mental status appears mildly improved at this time but likely she has some underlying dementia. Plan: 1. The patient's EEG from yesterday not reveal any evidence of epileptiform discharges. 2. Her CT from this morning does not reveal any evidence of infarct or intra or intracranial hemorrhage. 3. neurology will continue to follow the patient in house. I expect her mental status will improve gradually with resumption of her urinary tract infection. Objective - Vital Signs Vital signs: Vital Signs Temp 97.8 F 09/02/24 05:09 Pulse 64 09/02/24 05:09 Resp 15 09/02/24 05:09 BP 129/81 09/02/24 05:09 Pulse Ox 97 09/02/24 05:09 FiO2 Intake & Output 09/01/24 09/02/24 09/02/24 18:59 06:59 18:59 Intake Total 180 Output Total 450 450 Balance -270 -450 Weight 72.5 kg Intake: Oral 180 Output: Urine 450 450 Other: Voiding Method Indwelling Catheter Indwelling Catheter - Labs CBC & Chem 7: 09/02/24 06:08 09/02/24 06:08 Labs: Abnormal Lab Results - Last 24 Hours (Table) 09/01/24 09/01/24 09/02/24 Range/Units 11:16 20:03 06:08 RBC (3.80-5.40) m/uL Hgb (11.4-16.0) gm/dL MCV (80.0-100.0) fL MCHC (31.0-37.0) g/dL RDW (11.5-15.5) % Macrocytosis Chloride 114 H (98-107) mmol/L BUN 18 H (7-17) mg/dL Creatinine 1.09 H (0.52-1.04) mg/dL POC Glucose (mg/dL) 196 H 114 H (70-110) mg/dL Phosphorus 2.4 L (2.5-4.5) mg/dL AST 441 H (14-36) U/L ALT 244 H (4-34) U/L Alkaline Phosphatase 276 H (38-126) U/L Total Protein 5.1 L (6.3-8.2) g/dL Albumin 2.6 L (3.5-5.0) g/dL 09/02/24 Range/Units 06:08 RBC 3.25 L (3.80-5.40) m/uL Hgb 10.7 L (11.4-16.0) gm/dL MCV 106.8 H (80.0-100.0) fL MCHC 30.8 L (31.0-37.0) g/dL RDW 16.0 H (11.5-15.5) % Macrocytosis Marked A Chloride (98-107) mmol/L BUN (7-17) mg/dL Creatinine (0.52-1.04) mg/dL POC Glucose (mg/dL) (70-110) mg/dL Phosphorus (2.5-4.5) mg/dL AST (14-36) U/L ALT (4-34) U/L Alkaline Phosphatase (38-126) U/L Total Protein (6.3-8.2) g/dL Albumin (3.5-5.0) g/dL
--- NOTE | 2024-09-02 10:55 | P.PN ---
Subjective HISTORY OF PRESENT ILLNESS: This is a 78-year-old female with a past medical history significant for persistent atrial fibrillation, hypertension, hyperlipidemia, coronary artery disease, ischemic cardiomyopathy, and valvular heart disease. Patient follows in the office with Dr. Garibay. We have been asked to see the patient in consultation for atrial fibrillation. Patient examined at the bedside. Patient is admitted to the hospital secondary to urinary tract infection, acute kidney injury, and metabolic encephalopathy. Patient is confused at the time of examination. She denies any chest pain or pressure. Denies any shortness of breath. Vital signs are stable. Telemetry reveals atrial fibrillation with controlled ventricular rate. It is noted that the patient was in the office on August 15, 2024. Patient's metoprolol succinate was increased to 100 mg twice a day and she was started on digoxin 125mcg daily. DIAGNOSTICS: - EKG reveals atrial fibrillation with controlled ventricular rate - Laboratory data: WBC 7.3. Hemoglobin 12.5. Platelet count 277. Sodium 140. Potassium 4.0. BUN 37. Creatinine 1.43. AST 331. ALT 201. Troponin 0.039. 0.032. - Current home cardiac medications include Lipitor 40 mg at night, digoxin 125mcg daily, losartan 12.5 mg daily, metoprolol succinate 150 mg at night although this was recently changed at her office visit, Plavix 75 mg at night, Demadex 20 mg daily, Eliquis 5 mg twice a day - Most recent echocardiogram obtained in August 2024 revealed ejection fraction 50 to 55%, severe pulmonary hypertension, moderate MR, mild to moderate AR, moderate to severe TR, small pericardial effusion - Cardiac catheterization history: October 2023 revealing mid LAD 80%, mild CAD in circumflex and RCA. Patient underwent stenting of the proximal LAD. 09/02/2024 Patient examined this morning at the bedside. Patient remains pleasantly confused. No complaints of chest pain or pressure. She denies shortness of breath. Telemetry reveals atrial fibrillation with controlled ventricular rate. Patient's LFTs continue to increase today. AST 441. ALT 244. Alkaline phosphatase 276. PHYSICAL EXAM: VITAL SIGNS: Reviewed. GENERAL: Well-developed in no acute distress. HEENT: Head is normocephalic. Pupils are equal, round. Sclerae anicteric. Mucous membranes of the mouth are moist. Neck supple. No JVD or thyromegaly LUNGS: Respirations even and unlabored. Lungs essentially clear to auscultation bilaterally. HEART: Irregular rate and rhythm. S1 and S2 heard. ABDOMEN: Soft. Nondistended. Nontender. EXTREMITIES: Normal range of motion. No clubbing or cyanosis. Peripheral p ulses intact. No lower extremity edema NEUROLOGIC: Awake and alert. Pleasantly confused. ASSESSMENT: Acute metabolic encephalopathy Acute kidney injury Minimally elevated troponin, secondary to poor renal clearance, no evidence of myocardial injury or ischemia Urinary tract infection Possible digoxin toxicity Persistent atrial fibrillation with controlled ventricular rate Coronary artery disease with previous stenting to the proximal LAD, October 2023 History of ischemic cardiomyopathy with improved EF Valvular heart disease Transaminitis PLAN: 2D echo obtained and reviewed Continue metoprolol succinate 75 mg twice a day Hold statin due to transaminitis Digoxin has been discontinued Hold Demadex and losartan due to acute kidney injury. Continue to monitor renal function. Nephrology following. Decrease Eliquis to 2.5 mg twice a day due to worsening transaminitis Continue telemetry monitoring Further recommendations pending patient course Nurse practitioner note has been reviewed by physician. Signing provider agrees with the documented findings, assessment, and plan of care documented by [employer]ER as a scribe. Objective - Vital Signs Vital signs: Vital Signs Temp 97.8 F 09/02/24 05:09 Pulse 64 09/02/24 05:09 Resp 15 09/02/24 05:09 BP 129/81 09/02/24 05:09 Pulse Ox 97 09/02/24 05:09 FiO2 Intake & Output 09/01/24 09/02/24 09/02/24 18:59 06:59 18:59 Intake Total 180 Output Total 450 450 Balance -270 -450 Weight 72.5 kg Intake: Oral 180 Output: Urine 450 450 Other: Voiding Method Indwelling Catheter Indwelling Catheter - Labs CBC & Chem 7: 09/02/24 06:08 09/02/24 06:08 Labs: Abnormal Lab Results - Last 24 Hours (Table) 09/01/24 09/01/24 09/02/24 Range/Units 11:16 20:03 06:08 RBC (3.80-5.40) m/uL Hgb (11.4-16.0) gm/dL MCV (80.0-100.0) fL MCHC (31.0-37.0) g/dL RDW (11.5-15.5) % Macrocytosis Chloride 114 H (98-107) mmol/L BUN 18 H (7-17) mg/dL Creatinine 1.09 H (0.52-1.04) mg/dL POC Glucose (mg/dL) 196 H 114 H (70-110) mg/dL Phosphorus 2.4 L (2.5-4.5) mg/dL AST 441 H (14-36) U/L ALT 244 H (4-34) U/L Alkaline Phosphatase 276 H (38-126) U/L Total Protein 5.1 L (6.3-8.2) g/dL Albumin 2.6 L (3.5-5.0) g/dL 09/02/24 Range/Units 06:08 RBC 3.25 L (3.80-5.40) m/uL Hgb 10.7 L (11.4-16.0) gm/dL MCV 106.8 H (80.0-100.0) fL MCHC 30.8 L (31.0-37.0) g/dL RDW 16.0 H (11.5-15.5) % Macrocytosis Marked A Chloride (98-107) mmol/L BUN (7-17) mg/dL Creatinine (0.52-1.04) mg/dL POC Glucose (mg/dL) (70-110) mg/dL Phosphorus (2.5-4.5) mg/dL AST (14-36) U/L ALT (4-34) U/L Alkaline Phosphatase (38-126) U/L Total Protein (6.3-8.2) g/dL Albumin (3.5-5.0) g/dL
[2024-09-02 11:31] LABS: Glucose,Whole Blood 111 mg/dL (70-110)
--- NOTE | 2024-09-02 11:39 | P.PN ---
Subjective patient is seen for follow-up for acute kidney injury. Renal function is improving. S/p IVF Serum creatinine decreased to 1.0 from 3.7 on admission Patient is pleasantly confused. Objective - Vital Signs Vital signs: Vital Signs Temp 98.0 F 09/02/24 08:30 Pulse 60 09/02/24 08:30 Resp 16 09/02/24 08:30 BP 123/87 09/02/24 08:30 Pulse Ox 98 09/02/24 08:30 FiO2 Intake & Output 09/01/24 09/02/24 09/02/24 18:59 06:59 18:59 Intake Total 180 Output Total 450 450 Balance -270 -450 Weight 72.5 kg Intake: Oral 180 Output: Urine 450 450 Other: Voiding Method Indwelling Catheter Indwelling Catheter Indwelling Catheter - Exam patient is awake, comfortable, no acute distress. Examination of the heart S1 and S2 Examination of the lungs bilateral breath sounds are heard Abdomen is soft nontender Examination of lower extremities shows no evidence of edema Patient is pleasantly confused. Moving all 4 extremities. - Labs CBC & Chem 7: 09/02/24 06:08 09/02/24 06:08 Labs: Abnormal Lab Results - Last 24 Hours (Table) 09/01/24 09/02/24 09/02/24 Range/Units 20:03 06:08 06:08 RBC 3.25 L (3.80-5.40) m/uL Hgb 10.7 L (11.4-16.0) gm/dL MCV 106.8 H (80.0-100.0) fL MCHC 30.8 L (31.0-37.0) g/dL RDW 16.0 H (11.5-15.5) % Macrocytosis Marked A Chloride 114 H (98-107) mmol/L BUN 18 H (7-17) mg/dL Creatinine 1.09 H (0.52-1.04) mg/dL POC Glucose (mg/dL) 114 H (70-110) mg/dL Phosphorus 2.4 L (2.5-4.5) mg/dL AST 441 H (14-36) U/L ALT 244 H (4-34) U/L Alkaline Phosphatase 276 H (38-126) U/L Total Protein 5.1 L (6.3-8.2) g/dL Albumin 2.6 L (3.5-5.0) g/dL 09/02/24 Range/Units 11:29 RBC (3.80-5.40) m/uL Hgb (11.4-16.0) gm/dL MCV (80.0-100.0) fL MCHC (31.0-37.0) g/dL RDW (11.5-15.5) % Macrocytosis Chloride (98-107) mmol/L BUN (7-17) mg/dL Creatinine (0.52-1.04) mg/dL POC Glucose (mg/dL) 111 H (70-110) mg/dL Phosphorus (2.5-4.5) mg/dL AST (14-36) U/L ALT (4-34) U/L Alkaline Phosphatase (38-126) U/L Total Protein (6.3-8.2) g/dL Albumin (3.5-5.0) g/dL Assessment and Plan Assessment: 1. Acute kidney injury secondary to ATN secondary to hypovolemia/infection and urine retention. Currently with indwelling Navarrete catheter. Creatinine 3.7 on admission and is 1.0 today. No hydronephrosis noted on ultrasound. Left kidney atrophic. 2. Chronic kidney disease stage IIIa with baseline creatinine 1-1.2 secondary to nephrosclerosis. 3. A. fib with controlled heart rate 4. Diabetes mellitus. 5. Chronic diastolic CHF with severe pulmonary hypertension, moderate mitral regurgitation. 6. Urine retention with indwelling Navarrete catheter Plan: continue to encourage oral intake
--- NOTE | 2024-09-02 11:46 | P.PN ---
Subjective Progress Note Date: 09/02/24 History of present illness; 78 year old F with PMH of CKD 3B, CAD, HFrEF EF 25- 30% on 10/2023 Echo, recurrent UTI, DM, Gout, A-Fib (on Eliquis), Hypothyroid, Dementia, Gastritis presents for recheck/abnormal lab. History limited due to patient being very tired and falling asleep during most questions asked. Reports for the last 2 days she has had decreased urine output. States she also has had some suprapubic pain, as well as some dysuria during the last 2 days as well. Denies headache, chest pain, shortness of breath, nausea, vomiting, diarrhea, constipation, abdominal pain, and lower extremity swelling. Labs: WBC 15.3, MCV 102.9, neutrophils 0.5, sodium 134, BUN 65, creatinine 3.73, phosphorus 5.5, AST 193, ALT 129, alkaline phosphatase 146, troponin 0.039, BNP 5550, and TSH 27.2. Imaging: - EKG done in the ER showed heart rate of 71 bpm, atrial fibrillation with aberrant conduction or ventricular premature complexes, right bundle branch block, and QTc 394. 08/29/2024 patient seen and examined at bedside. Patient reported that she is still experiencing suprapubic tenderness but her alertness and wakefulness has improved. WBC 13.6 hemoglobin 11.9 platelet count 308,000 sodium 137 potassium 4 chloride 106 bicarb 23 BUN 64 creatinine 3.37 glucose 55 calcium 8.6 phosphorus 4.9 AST 212 ALT 144 alk phos 144 troponin 0.032 albumin 2.8. Urinalysis show +1 protein large leukocyte Estrace small blood 87 WBC. Digoxin level 2.5. Liver ultrasound reported as suboptimal study to consider CT to explore anechoic area anterior to the left kidney and inferior to the spleen and some fluid collection posterior to the bladder 08/30/2024 patient seen and examined at bedside. On interview, patient is confused. Per patient, she reported that her suprapubic pain is gone but she still feels some bladder fullness despite having a catheter. WBC 9.9 hemoglobin 12 platelet count 303,000 sodium 139 potassium 4 chloride 110 bicarb 22 BUN 53 creatinine 2. 01 glucose 135 calcium 8.8 AST 417 ALT 204 alk phos 203 albumin 2.8. KUB x-ray was negative for stones 08/31/2024 Patient seen and examined at bedside. No acute events overnight. Continues to be encephalopathic. WBC 7.3, hemoglobin 12.5, creatinine 1.43, bicarb 20, AST 331, ALT 201, ALP 177 09/01/2024 patient seen and examined at bedside. No acute events overnight. Patient still encephalopathic. Still on a Navarrete catheter. WBC 7.6 hemoglobin 12.5 chloride 117 bicarb 20 BUN 25 creatinine 1.15 calcium 1.5 09/02/2024 patient seen and examined at bedside. No acute events overnight. Patient is still encephalopathic. Patient still placed on a Navarrete catheter. WBC 6.5 hemoglobin 10.7 MCV 106 sodium 141 potassium 3.6 chloride 114 BUN 19 creatinine 1.09 phosphorus 2.4 total bilirubin 0.4 AST 441 ALT 244 alk phos 276 albumin 2.6 Review of systems: Pertinent positives and negatives as discussed in HPI, a complete review of systems was performed and all other systems are negative. Pertinent imaging and labs reviewed. Physical examination: Vital signs reviewed General: non toxic, no distress, appears at stated age Derm: no unusual rashes/lesions, warm Head: atraumatic, normocephalic, symmetric Eyes: EOMI, anicteric sclera, pupils equal round reactive to light ENT: Nose and ears atraumatic Neck: No cervical lymphadenopathy, trachea midline, supple Mouth: no lip lesion, mucus membranes moist Cardiovascular: S1S2 reg, no murmur Lungs: CTA bilateral, no rhonchi, no rales, no accessory muscle use Abdominal: soft, suprapubic area tender to light palpation, no guarding Ext: muscle strength 5 out of 5 in all 4 extremities grossly, no gross muscle atrophy, no contractures, positive dorsalis pedis pulse bilateral, no extremity heavenly Neuro: CN II-XI grossly intact, no gross focal neuro deficits Psych: Alert and oriented x 1, appropriate affect and mood Assessment and Plan 78 year old F with PMH of CAD, HFrEF EF 25-30% on 10/2023 Echo, recurrent UTI, DM, Gout, A-Fib (on Eliquis), Hypothyroid, Dementia, Gastritis presents for recheck/abnormal lab. Patient is being worked up for JANNETH and acute metabolic encephalopathy. #Acute metabolic encephalopahty: Unknown etiology #Hypoactive delirium #JANNETH on chronic kidney disease: Potentially postrenal less likely medication side effect, improving #Urinary tract infection status post antibiotics #Leukocytosis, resolved -BUN 37, creatinine 1.43 -KUB x-ray was negative for stones -CT brain without contrast -Echo pending -EEG is abnormal for metabolic encephalopathy -Vitamin B12 levels -Hold home losartan and metformin -Avoid nephrotoxic agents -IVF discontinued -Status post ceftriaxone 2 g IVPB daily on 09/02 -On Navarrete catheter - Strict I&O -Fall precautions -Nephrology following -Neuro consulted serum ammonia ordered and 5 mg melatonin for the evening. Hold Seroquel -Started on oral Tylenol 500 every 6 hours scheduled has been possibly causing delirium #Transaminitis, stable -Previously elevated on recent admission. Still continues to be elevated today. Patient experiences no right upper quadrant pain - liver u/s reported as suboptimal study to consider CT to explore anechoic area anterior to the left kidney and inferior to the spleen and some fluid collection posterior to the bladder -GGT 203 -Continue to monitor CMP #Hyperphosphatemia -In the setting of JANNETH on CKD -Continue to monitor #Elevated troponin, resolved -Patient denying chest pain -Troponin peaked at 0.039 -Elevated in the setting of CKD #Leukocytosis: Potentially reactive versus UTI, resolved -UA +1 protein large leukocyte Estrace small blood 87 WBC. - urine culture negative -Continue to monitor CBC -Most recent cultures growing Evelyn and E. coli, possible Evelyn colonization, had pansensitive E. coli, restarted on IV ceftriaxone -Status post ceftriaxone 2 g IVPB daily on 09/02 Chronic Conditions: #. Hypertension: -Hold losartan and torsemide in setting of JANNETH -Continue home metoprolol succinate #. Atrial fibrillation #. Digoxin toxicity -Continue home Eliquis 5 mg p.o. twice daily -Hold digoxin, digoxin level 2.5. Adjust home dose on discharge #. Hyperlipidemia: -Continue home Lipitor 40 mg p.o. at bedtime #. Dementia: -Continue home memantine 5 mg p.o. twice daily #. Hypothyroidism: -Increase home Synthroid 112 mcg p.o. daily - TSH 27, downtrending from previous levels #. Gout: -Changed home allopurinol 300 to allopurinol 100 mg p.o. at bedtime #Diabetes mellitus: -Hold home medication -Started on sliding scale, monitor for hypoglycemia -Accu-Cheks #CAD: -Continue home Plavix 75 mg p.o. at bedtime F: Oral intake E: None N: Regular diet DVT ppx: Eliquis 5 mg p.o. twice daily GI ppx: Continue home Protonix 40 mg p.o. daily CODE STATUS: Full code Dispo: Pending medical course Najma Barone MD PGY-1/Super[employer] Dictation was produced using [employer] dictation software. please excuse any grammatical, word or spelling errors. I have seen and evaluated the patient today. Discussed with the resident and agree with the residents finding and plan as documented in the resident's note. Changes highlighted in blue font. Objective - Vital Signs Vital signs: Vital Signs Temp 97.8 F 09/02/24 05:09 Pulse 64 09/02/24 05:09 Resp 15 09/02/24 05:09 BP 129/81 09/02/24 05:09 Pulse Ox 97 09/02/24 05:09 FiO2 Intake & Output 09/01/24 09/02/24 09/02/24 18:59 06:59 18:59 Intake Total 180 Output Total 450 450 Balance -270 -450 Weight 72.5 kg Intake: Oral 180 Output: Urine 450 450 Other: Voiding Method Indwelling Catheter Indwelling Catheter - Labs CBC & Chem 7: 09/02/24 06:08 09/02/24 06:08 Labs: Abnormal Lab Results - Last 24 Hours (Table) 09/01/24 09/01/24 09/01/24 Range/Units 08:13 08:13 11:16 MCV 108.5 H (80.0-100.0) fL MCHC 29.3 L (31.0-37.0) g/dL RDW 15.9 H (11.5-15.5) % Macrocytosis Marked A Chloride 117 H (98-107) mmol/L Carbon Dioxide 20 L (22-30) mmol/L BUN 25 H (7-17) mg/dL Creatinine 1.15 H (0.52-1.04) mg/dL Glucose 120 H (74-99) mg/dL POC Glucose (mg/dL) 196 H (70-110) mg/dL Magnesium 1.5 L (1.6-2.3) mg/dL 09/01/24 Range/Units 20:03 MCV (80.0-100.0) fL MCHC (31.0-37.0) g/dL RDW (11.5-15.5) % Macrocytosis Chloride (98-107) mmol/L Carbon Dioxide (22-30) mmol/L BUN (7-17) mg/dL Creatinine (0.52-1.04) mg/dL Glucose (74-99) mg/dL POC Glucose (mg/dL) 114 H (70-110) mg/dL Magnesium (1.6-2.3) mg/dL
[2024-09-02] MEDS: polyethylene glycoL 3350 17 GM POWD.PACK PO SCH (12:27)
[2024-09-02 14:18] VITALS: BMI 25.7
[2024-09-02 16:41] LABS: Glucose,Whole Blood 88 mg/dL (70-110)
[2024-09-02] MEDS: ACETAMINOPHEN TAB 500 MG TAB PO SCH (16:47)
[2024-09-02 19:56] LABS: Glucose,Whole Blood 95 mg/dL (70-110)
[2024-09-03 05:55] LABS: Glucose,Whole Blood 84 mg/dL (70-110)
[2024-09-03 06:39] LABS: Anisocytosis Slight; Basophils # (A) 0.1 k/uL (0-0.2); Basophils % (A) 1 %; Eosinophils # (A) 0.3 k/uL (0-0.7); Eosinophils % (A) 5 %; HCT 34.4 % (34.0-46.0); HGB 10.9 gm/dL (11.4-16.0); Hypochromasia Marked; Lymphocytes # (A) 1.4 k/uL (1.0-4.8); Lymphocytes % (A) 21 %; MCH 33.5 pg (25.0-35.0); MCHC 31.6 g/dL (31.0-37.0); MCV 105.8 fL (80.0-100.0); Macrocytosis Moderate; Mean Platelet Volume 8.6; Monocytes # (A) 0.4 k/uL (0-1.0); Monocytes % (A) 6 %; Neutrophils # (A) 4.2 k/uL (1.3-7.7); Neutrophils % (A) 65 %; Platelet Count 267 k/uL (150-450); RBC 3.25 m/uL (3.80-5.40); RDW 16.1 % (11.5-15.5); WBC 6.5 k/uL (3.8-10.6)
[2024-09-03 06:59] LABS: ALT 233 U/L (4-34); AST 396 U/L (14-36); African American GFR (CKD) 64 (>60 ml/min/1.73 sqM); Albumin 2.5 g/dL (3.5-5.0); Alkaline Phosphatase 279 U/L (38-126); Anion Gap 2 mmol/L; Blood Urea Nitrogen 14 mg/dL (7-17); Calcium 8.6 mg/dL (8.4-10.2); Carbon Dioxide 22 mmol/L (22-30); Chloride 115 mmol/L (98-107); Glucose 82 mg/dL (74-99); Non-African American GFR(CKD) 55 (>60 ml/min/1.73 sqM); Potassium 3.7 mmol/L (3.5-5.1); Sodium 139 mmol/L (137-145); Total Bilirubin 0.5 mg/dL (0.2-1.3)
[2024-09-03] MEDS: TORSEMIDE 20 MG TAB PO SCH (11:10)
--- NOTE | 2024-09-03 11:14 | P.PN ---
Subjective Progress Note Date: 09/03/24 Principal diagnosis: Altered Mental Status with UTI. rachell Brito is a 78-year-old female with history of chronic kidney disease, coronary artery disease, CHF with ejection fraction of 25 to 50%, urinary tract infections, gastroesophageal reflux disease, diabetes, gout, at rial fibrillation, hypothyroidism, dementia for which she takes Namenda, atrial fibrillation who was admitted to [facility] on August 28 as she was confused and falling asleep during interviewing. She had been complaining of some decreased urine output as well as dysuria over the past couple of days and was noted to have a urinary tract infection with 87 white blood cells and large leukocyte esterase for which she is currently on ceftriaxone 75 mg daily. It has been noted that she has been "pleasantly confused" by staff during the day and neurology was consulted for further management recommendations. Such as by nursing staff she does not appear to be sleeping well and sleeps mostly during the day. On 09/01/24 the patient does denied any significant hallucinations or significant paranoia however she does say she is "placed in strange places". On neurology follow-up on September 02, the patient remains sleepy confined to her bed. She does not know she is at hospital but is able to remember this fact after approximately 3 minutes after being told. She was able to follow some simple commands but has difficulty with complex commands. She was placed on melatonin 5 mg nightly to help regulate her sleep. On evaluation September 03, 2024, the patient apparently slept well overnight. She is off of antibiotics at this time. On evaluation. The patient was drowsy but was able to be oriented to the hospital though she could not divine with her location from visual cues. She did remember that she was in the hospital after approximately 3 to 5 minutes. On physical exam cranial nerves II through XII were normal and she had at least 3 out of 5 strength in the lower extremities. At this time she appears pleasantly confused though this is apparently worse than her home status, though family does note she has mild dementia. Pertinent studies include electroencephalogram from September 01 which reveals a background slowing at 4 to 6 Hz with some myogenic artifact in the bifrontal area and superimposed 10 to 11 Hz beta rhythm possibly consistent with benzodiazepine use a CT of the head was performed this morning September 02 which does not rule any acute findings but evidence of a nonspecific small vessel disease. Conclusion: Ms. Brito is a 78-year-old female with admission on August 28 for altered mental status. She has an urinary tract infection and is completed a course of ceftriaxone. Her mental status appears mildly improved at this time but likely she has some underlying dementia. 1. We will continue with nighttime melatonin 5 mg to help regulate her sleep. 2. It appears that the patient is making some mild progress with improved mental status. 3. neurology will continue to follow her in house, though it may be on an intermittent basis from now on. Objective - Vital Signs Vital signs: Vital Signs Temp 98.0 F 09/03/24 08:20 Pulse 61 09/03/24 08:20 Resp 16 09/03/24 08:20 BP 155/82 09/03/24 08:20 Pulse Ox 97 09/03/24 08:20 FiO2 Intake & Output 09/02/24 09/03/24 09/03/24 18:59 06:59 18:59 Intake Total 540 120 Output Total 800 350 Balance -260 -350 120 Weight 72.5 kg 74.5 kg Intake: Oral 540 120 Output: Urine 800 350 Post Void Residual 0 Other: Voiding Method Indwelling Catheter Indwelling Catheter - Labs CBC & Chem 7: 09/03/24 06:20 09/03/24 06:20 Labs: Abnormal Lab Results - Last 24 Hours (Table) 09/02/24 09/02/24 09/02/24 Range/Units 06:08 11:29 11:43 RBC (3.80-5.40) m/uL Hgb (11.4-16.0) gm/dL MCV (80.0-100.0) fL RDW (11.5-15.5) % Chloride (98-107) mmol/L POC Glucose (mg/dL) 111 H (70-110) mg/dL Magnesium 1.5 L (1.6-2.3) mg/dL AST (14-36) U/L ALT (4-34) U/L Alkaline Phosphatase (38-126) U/L Total Protein (6.3-8.2) g/dL Albumin (3.5-5.0) g/dL Vitamin B12 1915.0 H (200.0-944.0) pg/mL 09/03/24 09/03/24 Range/Units 06:20 06:20 RBC 3.25 L (3.80-5.40) m/uL Hgb 10.9 L (11.4-16.0) gm/dL MCV 105.8 H (80.0-100.0) fL RDW 16.1 H (11.5-15.5) % Chloride 115 H (98-107) mmol/L POC Glucose (mg/dL) (70-110) mg/dL Magnesium (1.6-2.3) mg/dL AST 396 H (14-36) U/L ALT 233 H (4-34) U/L Alkaline Phosphatase 279 H (38-126) U/L Total Protein 5.0 L (6.3-8.2) g/dL Albumin 2.5 L (3.5-5.0) g/dL Vitamin B12 (200.0-944.0) pg/mL
[2024-09-03 11:23] LABS: Glucose,Whole Blood 174 mg/dL (70-110)
--- NOTE | 2024-09-03 11:48 | P.PN ---
Subjective Progress Note Date: 09/03/24 History of present illness; 78 year old F with PMH of CKD 3B, CAD, HFrEF EF 25- 30% on 10/2023 Echo, recurrent UTI, DM, Gout, A-Fib (on Eliquis), Hypothyroid, Dementia, Gastritis presents for recheck/abnormal lab. History limited due to patient being very tired and falling asleep during most questions asked. Reports for the last 2 days she has had decreased urine output. States she also has had some suprapubic pain, as well as some dysuria during the last 2 days as well. Denies headache, chest pain, shortness of breath, nausea, vomiting, diarrhea, constipation, abdominal pain, and lower extremity swelling. Labs: WBC 15.3, MCV 102.9, neutrophils 0.5, sodium 134, BUN 65, creatinine 3.73, phosphorus 5.5, AST 193, ALT 129, alkaline phosphatase 146, troponin 0.039, BNP 5550, and TSH 27.2. Imaging: - EKG done in the ER showed heart rate of 71 bpm, atrial fibrillation with aberrant conduction or ventricular premature complexes, right bundle branch block, and QTc 394. 08/29/2024 patient seen and examined at bedside. Patient reported that she is still experiencing suprapubic tenderness but her alertness and wakefulness has improved. WBC 13.6 hemoglobin 11.9 platelet count 308,000 sodium 137 potassium 4 chloride 106 bicarb 23 BUN 64 creatinine 3.37 glucose 55 calcium 8.6 phosphorus 4.9 AST 212 ALT 144 alk phos 144 troponin 0.032 albumin 2.8. Urinalysis show +1 protein large leukocyte Estrace small blood 87 WBC. Digoxin level 2.5. Liver ultrasound reported as suboptimal study to consider CT to explore anechoic area anterior to the left kidney and inferior to the spleen and some fluid collection posterior to the bladder 08/30/2024 patient seen and examined at bedside. On interview, patient is confused. Per patient, she reported that her suprapubic pain is gone but she still feels some bladder fullness despite having a catheter. WBC 9.9 hemoglobin 12 platelet count 303,000 sodium 139 potassium 4 chloride 110 bicarb 22 BUN 53 creatinine 2. 01 glucose 135 calcium 8.8 AST 417 ALT 204 alk phos 203 albumin 2.8. KUB x-ray was negative for stones 08/31/2024 Patient seen and examined at bedside. No acute events overnight. Continues to be encephalopathic. WBC 7.3, hemoglobin 12.5, creatinine 1.43, bicarb 20, AST 331, ALT 201, ALP 177 09/01/2024 patient seen and examined at bedside. No acute events overnight. Patient still encephalopathic. Still on a Navarrete catheter. WBC 7.6 hemoglobin 12.5 chloride 117 bicarb 20 BUN 25 creatinine 1.15 calcium 1.5 09/02/2024 patient seen and examined at bedside. No acute events overnight. Patient is still encephalopathic. Patient still placed on a Navarrete catheter. WBC 6.5 hemoglobin 10.7 MCV 106 sodium 141 potassium 3.6 chloride 114 BUN 19 creatinine 1.09 phosphorus 2.4 total bilirubin 0.4 AST 441 ALT 244 alk phos 276 albumin 2.6 09/03/2024 patient seen and examined at bedside. Patient noted to have better mentation today but still confused and lethargic. Patient has no acute events overnight. WBC 6.5 hemoglobin 10.9 platelet count 267,000 sodium 139 potassium 3.7 chloride 115 BUN 14 creatinine 0.98 glucose 82 AST 396 ALT 233 alk phos 279 albumin 2.5 Review of systems: Pertinent positives and negatives as discussed in HPI, a complete review of systems was performed and all other systems are negative. Pertinent imaging and labs reviewed. Physical examination: Vital signs reviewed General: non toxic, no distress, on Navarrete catheter Derm: no unusual rashes/lesions, warm Head: atraumatic, normocephalic, symmetric Eyes: EOMI, anicteric sclera, pupils equal round reactive to light ENT: Nose and ears atraumatic Neck: No cervical lymphadenopathy, trachea midline, supple Mouth: no lip lesion, mucus membranes moist Cardiovascular: S1S2 reg, no murmur Lungs: CTA bilateral, no rhonchi, no rales, no accessory muscle use Abdominal: soft, suprapubic area tender to light palpation, no guarding Ext: muscle strength 5 out of 5 in all 4 extremities grossly, no gross muscle atrophy, no contractures, positive dorsalis pedis pulse bilateral, no extremity edema Neuro: CN II-XI grossly intact, no gross focal neuro deficits Psych: Alert and oriented x 2, appropriate affect and mood Assessment and Plan 78 year old F with PMH of CAD, HFrEF EF 25-30% on 10/2023 Echo, recurrent UTI, DM, Gout, A-Fib (on Eliquis), Hypothyroid, Dementia, Gastritis presents for recheck/abnormal lab. Patient is being worked up for JANNETH and acute metabolic encephalopathy. #Acute metabolic encephalopahty: Potentially secondary to uremia versus urinary retention versus UTI versus digoxin toxicity #JANNETH on chronic kidney disease: Potentially postrenal less likely medication side effect, improving #Urinary tract infection #Leukocytosis, resolved -BUN 37, creatinine 1.43 -KUB x-ray was negative for stones -CT brain without contrast -Echo pending -EEG is abnormal for metabolic encephalopathy -Vitamin B12 levels -Hold home losartan allopurinol, and metformin -Avoid nephrotoxic agents -Status post 1 L bolus NS in the ED -IVF discontinued -Status post ceftriaxone 2 g IVPB daily on 09/02 -Straight cath done. Bladder ultrasound to check for retention -On Navarrete catheter - Strict I&O -Fall precautions -Nephrology following -Per cardiology, Eliquis decreased to 2.5 mg twice daily and restart Demadex today. -Neuro consulted serum ammonia ordered and 5 mg melatonin for the evening. Hold Seroquel #Transaminitis, stable -Previously elevated on recent admission. Still continues to be elevated today. Patient experiences no right upper quadrant pain - liver u/s reported as suboptimal study to consider CT to explore anechoic area anterior to the left kidney and inferior to the spleen and some fluid collection posterior to the bladder -GGT 203 -Continue to monitor CMP #Hyperphosphatemia -In the setting of JANNETH on CKD -Continue to monitor #Elevated troponin, resolved -Patient denying chest pain -Troponin peaked at 0.039 -Elevated in the setting of CKD #Leukocytosis: Potentially reactive versus UTI, resolved -UA +1 protein large leukocyte Estrace small blood 87 WBC. - urine culture negative -Continue to monitor CBC -Most recent cultures growing Evelyn and E. coli, possible Evelyn colonization, had pansensitive E. coli, restarted on IV ceftriaxone -Status post ceftriaxone 2 g IVPB daily on 09/02 Chronic Conditions: #. Hypertension: -Resume losartan and torsemide today -Continue home metoprolol succinate #. Atrial fibrillation #. Digoxin toxicity -Continue home Eliquis 5 mg p.o. twice daily -Hold digoxin, digoxin level 2.5. Adjust home dose on discharge #. Hyperlipidemia: -Continue home Lipitor 40 mg p.o. at bedtime #. Dementia: -Continue home memantine 5 mg p.o. twice daily #. Hypothyroidism: -Increase home Synthroid 112 mcg p.o. daily - TSH 27, downtrending from previous levels #. Gout: -Changed home allopurinol 300 to allopurinol 100 mg p.o. at bedtime #Diabetes mellitus: -Hold home medication -Started on sliding scale, monitor for hypoglycemia -Accu-Cheks #CAD: -Continue home Plavix 75 mg p.o. at bedtime F: Oral intake E: None N: Regular diet DVT ppx: Eliquis 2.5mg p.o. twice daily GI ppx: Continue home Protonix 40 mg p.o. daily CODE STATUS: Full code Dispo: Pending medical course. Likely discharge to rehab facility. Najma Barone MD PGY-1/Complaint Evaluation Officer Dictation was produced using [employer] dictation software. please excuse any grammatical, word or spelling errors. I have seen and evaluated the patient today. Discussed with the resident and agree with the residents finding and plan as documented in the resident's note. Changes highlighted in blue font. Objective - Vital Signs Vital signs: Vital Signs Temp 98.0 F 09/03/24 08:20 Pulse 61 09/03/24 08:20 Resp 16 09/03/24 08:20 BP 155/82 09/03/24 08:20 Pulse Ox 97 09/03/24 08:20 FiO2 Intake & Output 09/02/24 09/03/24 09/03/24 18:59 06:59 18:59 Intake Total 540 120 Output Total 800 350 Balance -260 -350 120 Weight 72.5 kg 74.5 kg Intake: Oral 540 120 Output: Urine 800 350 Post Void Residual 0 Other: Voiding Method Indwelling Catheter Indwelling Catheter - Labs CBC & Chem 7: 09/03/24 06:20 09/03/24 06:20 Labs: Abnormal Lab Results - Last 24 Hours (Table) 09/02/24 09/02/24 09/03/24 Range/Units 06:08 11:43 06:20 RBC 3.25 L (3.80-5.40) m/uL Hgb 10.9 L (11.4-16.0) gm/dL MCV 105.8 H (80.0-100.0) fL RDW 16.1 H (11.5-15.5) % Chloride (98-107) mmol/L POC Glucose (mg/dL) (70-110) mg/dL Magnesium 1.5 L (1.6-2.3) mg/dL AST (14-36) U/L ALT (4-34) U/L Alkaline Phosphatase (38-126) U/L Total Protein (6.3-8.2) g/dL Albumin (3.5-5.0) g/dL Vitamin B12 1915.0 H (200.0-944.0) pg/mL 09/03/24 09/03/24 Range/Units 06:20 11:21 RBC (3.80-5.40) m/uL Hgb (11.4-16.0) gm/dL MCV (80.0-100.0) fL RDW (11.5-15.5) % Chloride 115 H (98-107) mmol/L POC Glucose (mg/dL) 174 H (70-110) mg/dL Magnesium (1.6-2.3) mg/dL AST 396 H (14-36) U/L ALT 233 H (4-34) U/L Alkaline Phosphatase 279 H (38-126) U/L Total Protein 5.0 L (6.3-8.2) g/dL Albumin 2.5 L (3.5-5.0) g/dL Vitamin B12 (200.0-944.0) pg/mL
--- NOTE | 2024-09-03 11:57 | P.PN ---
Subjective HISTORY OF PRESENT ILLNESS: This is a 78-year-old female with a past medical history significant for persistent atrial fibrillation, hypertension, hyperlipidemia, coronary artery disease, ischemic cardiomyopathy, and valvular heart disease. Patient follows in the office with Dr. Garibay. We have been asked to see the patient in consultation for atrial fibrillation. Patient examined at the bedside. Patient is admitted to the hospital secondary to urinary tract infection, acute kidney injury, and metabolic encephalopathy. Patient is confused at the time of examination. She denies any chest pain or pressure. Denies any shortness of breath. Vital signs are stable. Telemetry reveals atrial fibrillation with controlled ventricular rate. It is noted that the patient was in the office on August 15, 2024. Patient's metoprolol succinate was increased to 100 mg twice a day and she was started on digoxin 125mcg daily. DIAGNOSTICS: - EKG reveals atrial fibrillation with controlled ventricular rate - Laboratory data: WBC 7.3. Hemoglobin 12.5. Platelet count 277. Sodium 140. Potassium 4.0. BUN 37. Creatinine 1.43. AST 331. ALT 201. Troponin 0.039. 0.032. - Current home cardiac medications include Lipitor 40 mg at night, digoxin 125mcg daily, losartan 12.5 mg daily, metoprolol succinate 150 mg at night although this was recently changed at her office visit, Plavix 75 mg at night, Demadex 20 mg daily, Eliquis 5 mg twice a day - Most recent echocardiogram obtained in August 2024 revealed ejection fraction 50 to 55%, severe pulmonary hypertension, moderate MR, mild to moderate AR, moderate to severe TR, small pericardial effusion - Cardiac catheterization history: October 2023 revealing mid LAD 80%, mild CAD in circumflex and RCA. Patient underwent stenting of the proximal LAD. 09/02/2024 Patient examined this morning at the bedside. Patient remains pleasantly confused. No complaints of chest pain or pressure. She denies shortness of breath. Telemetry reveals atrial fibrillation with controlled ventricular rate. Patient's LFTs continue to increase today. AST 441. ALT 244. Alkaline phosphatase 276. 09/03/2024 Patient examined this morning the bedside. Patient remains pleasantly confused. She denies chest pain or shortness of breath. Telemetry reveals atrial fibrillation with controlled ventricular rate. Patient's kidney function has normalized. BUN 14. Creatinine 0.98. LFTs remain elevated. AST 396. ALT 233. PHYSICAL EXAM: VITAL SIGNS: Reviewed. GENERAL: Well-developed in no acute distress. HEENT: Head is normocephalic. Pupils are equal, round. Sclerae anicteric. Mucous membranes of the mouth are moist. Neck supple. No JVD or thyromegaly LUNGS: Respirations even and unlabored. Lungs essentially clear to auscultation bilaterally. HEART: Irregular rate and rhythm. S1 and S2 heard. ABDOMEN: Soft. Nondistended. Nontender. EXTREMITIES: Normal range of motion. No clubbing or cyanosis. Peripheral pulses intact. No lower extremity edema NEUROLOGIC: Awake and alert. Pleasantly confused. ASSESSMENT: Acute metabolic encephalopathy Acute kidney injury Minimally elevated troponin, secondary to poor renal clearance, no evidence of myocardial injury or ischemia Urinary tract infection Possible digoxin toxicity Persistent atrial fibrillation with controlled ventricular rate Coronary artery disease with previous stenting to the proximal LAD, October 2023 History of ischemic cardiomyopathy with improved EF Valvular heart disease Transaminitis PLAN: 2D echo obtained and reviewed Continue metoprolol succinate 75 mg twice a day Hold statin due to transaminitis Digoxin has been discontinued upon admission Resume Demadex and losartan as JANNETH has resolved Eliquis decreased to 2.5 mg twice a day due to worsening transaminitis per Dr. Jacobson Continue telemetry monitoring Patient is currently stable from a cardiac perspective Further recommendations pending patient course Nurse practitioner note has been reviewed by physician. Signing provider agrees with the documented findings, assessment, and plan of care documented by [employer] as a scribe. Objective - Vital Signs Vital signs: Vital Signs Temp 98.0 F 09/03/24 08:20 Pulse 61 09/03/24 08:20 Resp 16 09/03/24 08:20 BP 155/82 09/03/24 08:20 Pulse Ox 97 09/03/24 08:20 FiO2 Intake & Output 09/02/24 09/03/24 09/03/24 18:59 06:59 18:59 Intake Total 540 120 Output Total 800 350 Balance -260 -350 120 Weight 72.5 kg 74.5 kg Intake: Oral 540 120 Output: Urine 800 350 Post Void Residual 0 Other: Voiding Method Indwelling Catheter Indwelling Catheter - Labs CBC & Chem 7: 09/03/24 06:20 09/03/24 06:20 Labs: Abnormal Lab Results - Last 24 Hours (Table) 09/02/24 09/02/24 09/03/24 Range/Units 06:08 11:43 06:20 RBC 3.25 L (3.80-5.40) m/uL Hgb 10.9 L (11.4-16.0) gm/dL MCV 105.8 H (80.0-100.0) fL RDW 16.1 H (11.5-15.5) % Chloride (98-107) mmol/L POC Glucose (mg/dL) (70-110) mg/dL Magnesium 1.5 L (1.6-2.3) mg/dL AST (14-36) U/L ALT (4-34) U/L Alkaline Phosphatase (38-126) U/L Total Protein (6.3-8.2) g/dL Albumin (3.5-5.0) g/dL Vitamin B12 1915.0 H (200.0-944.0) pg/mL 09/03/24 09/03/24 Range/Units 06:20 11:21 RBC (3.80-5.40) m/uL Hgb (11.4-16.0) gm/dL MCV (80.0-100.0) fL RDW (11.5-15.5) % Chloride 115 H (98-107) mmol/L POC Glucose (mg/dL) 174 H (70-110) mg/dL Magnesium (1.6-2.3) mg/dL AST 396 H (14-36) U/L ALT 233 H (4-34) U/L Alkaline Phosphatase 279 H (38-126) U/L Total Protein 5.0 L (6.3-8.2) g/dL Albumin 2.5 L (3.5-5.0) g/dL Vitamin B12 (200.0-944.0) pg/mL
[2024-09-03 16:07] LABS: Glucose,Whole Blood 167 mg/dL (70-110)
[2024-09-03 20:14] LABS: Glucose,Whole Blood 164 mg/dL (70-110)
[2024-09-04 06:08] LABS: Glucose,Whole Blood 87 mg/dL (70-110)
[2024-09-04] MEDS: LOSARTAN 25 MG TAB PO SCH (08:41)
[2024-09-04 09:27] LABS: Anisocytosis Slight; Basophils # (A) 0.1 k/uL (0-0.2); Basophils % (A) 1 %; Eosinophils # (A) 0.3 k/uL (0-0.7); Eosinophils % (A) 5 %; HCT 35.9 % (34.0-46.0); HGB 11.3 gm/dL (11.4-16.0); Hypochromasia Slight; Lymphocytes # (A) 1.7 k/uL (1.0-4.8); Lymphocytes % (A) 24 %; MCH 32.5 pg (25.0-35.0); MCHC 31.4 g/dL (31.0-37.0); MCV 103.5 fL (80.0-100.0); Macrocytosis Moderate; Mean Platelet Volume 9.1; Monocytes # (A) 0.4 k/uL (0-1.0); Monocytes % (A) 6 %; Neutrophils # (A) 4.6 k/uL (1.3-7.7); Neutrophils % (A) 63 %; Platelet Count 291 k/uL (150-450); RBC 3.47 m/uL (3.80-5.40); RDW 16.6 % (11.5-15.5); WBC 7.2 k/uL (3.8-10.6)
[2024-09-04 09:43] LABS: ALT 213 U/L (4-34); AST 287 U/L (14-36); African American GFR (CKD) 60 (>60 ml/min/1.73 sqM); Albumin 2.8 g/dL (3.5-5.0); Alkaline Phosphatase 273 U/L (38-126); Anion Gap 4 mmol/L; Blood Urea Nitrogen 14 mg/dL (7-17); Calcium 8.7 mg/dL (8.4-10.2); Carbon Dioxide 26 mmol/L (22-30); Chloride 110 mmol/L (98-107); Glucose 82 mg/dL (74-99); Non-African American GFR(CKD) 52 (>60 ml/min/1.73 sqM); Potassium 3.7 mmol/L (3.5-5.1); Sodium 140 mmol/L (137-145); Total Bilirubin 0.5 mg/dL (0.2-1.3); Total Protein 5.3 g/dL (6.3-8.2)
--- NOTE | 2024-09-04 10:52 | P.PN ---
Subjective patient is seen for follow-up for acute kidney injury. Renal function is improving. S/p IVF Serum creatinine decreased to 1.0 from 3.7 on admission Patient is pleasantly confused. Restarted on torsemide. Objective - Vital Signs Vital signs: Vital Signs Temp 97.7 F 09/04/24 08:40 Pulse 73 09/04/24 08:40 Resp 17 09/04/24 08:40 BP 149/79 09/04/24 08:40 Pulse Ox 98 09/04/24 08:40 FiO2 Intake & Output 09/03/24 09/04/24 09/04/24 18:59 06:59 18:59 Intake Total 360 120 Output Total 1600 850 500 Balance -1240 -850 -380 Weight 72 kg Intake: Oral 360 120 Output: Urine 1600 850 500 Other: Voiding Method Indwelling Catheter Indwelling Catheter Indwelling Catheter - Exam patient is awake, comfortable, no acute distress. Examination of the heart S1 and S2 Examination of the lungs bilateral breath sounds are heard Abdomen is soft nontender Examination of lower extremities shows no evidence of edema Patient is pleasantly confused. Moving all 4 extremities. - Labs CBC & Chem 7: 09/04/24 09:09 09/04/24 09:09 Labs: Abnormal Lab Results - Last 24 Hours (Table) 09/03/24 09/03/24 09/03/24 Range/Units 11:21 16:05 20:12 RBC (3.80-5.40) m/uL Hgb (11.4-16.0) gm/dL MCV (80.0-100.0) fL RDW (11.5-15.5) % Chloride (98-107) mmol/L POC Glucose (mg/dL) 174 H 167 H 164 H (70-110) mg/dL AST (14-36) U/L ALT (4-34) U/L Alkaline Phosphatase (38-126) U/L Total Protein (6.3-8.2) g/dL Albumin (3.5-5.0) g/dL 09/04/24 09/04/24 Range/Units 09:09 09:09 RBC 3.47 L (3.80-5.40) m/uL Hgb 11.3 L (11.4-16.0) gm/dL MCV 103.5 H (80.0-100.0) fL RDW 16.6 H (11.5-15.5) % Chloride 110 H (98-107) mmol/L POC Glucose (mg/dL) (70-110) mg/dL AST 287 H (14-36) U/L ALT 213 H (4-34) U/L Alkaline Phosphatase 273 H (38-126) U/L Total Protein 5.3 L (6.3-8.2) g/dL Albumin 2.8 L (3.5-5.0) g/dL Assessment and Plan Assessment: 1. Acute kidney injury secondary to ATN secondary to hypovolemia/infection and urine retention. Currently with indwelling Navarrete catheter. Creatinine 3.7 on admission and is 1.0 today. No hydronephrosis noted on ultrasound. Left kidney atrophic. 2. Chronic kidney disease stage IIIa with baseline creatinine 1-1.2 secondary to nephrosclerosis. 3. A. fib with controlled heart rate 4. Diabetes mellitus. 5. Chronic diastolic CHF with severe pulmonary hypertension, moderate mitral regurgitation. 6. Urine retention with indwelling Navarrete catheter Plan: continue to encourage oral intake Continue with torsemide. Consider decreasing dose if serum creatinine has further increased tomorrow.
[2024-09-04 11:17] LABS: Glucose,Whole Blood 145 mg/dL (70-110)
--- NOTE | 2024-09-04 11:28 | P.PN ---
Subjective Progress Note Date: 09/04/24 History of present illness; 78 year old F with PMH of CKD 3B, CAD, HFrEF EF 25- 30% on 10/2023 Echo, recurrent UTI, DM, Gout, A-Fib (on Eliquis), Hypothyroid, Dementia, Gastritis presents for recheck/abnormal lab. History limited due to patient being very tired and falling asleep during most questions asked. Reports for the last 2 days she has had decreased urine output. States she also has had some suprapubic pain, as well as some dysuria during the last 2 days as well. Denies headache, chest pain, shortness of breath, nausea, vomiting, diarrhea, constipation, abdominal pain, and lower extremity swelling. Labs: WBC 15.3, MCV 102.9, neutrophils 0.5, sodium 134, BUN 65, creatinine 3.73, phosphorus 5.5, AST 193, ALT 129, alkaline phosphatase 146, troponin 0.039, BNP 5550, and TSH 27.2. Imaging: - EKG done in the ER showed heart rate of 71 bpm, atrial fibrillation with aberrant conduction or ventricular premature complexes, right bundle branch block, and QTc 394. 08/29/2024 patient seen and examined at bedside. Patient reported that she is still experiencing suprapubic tenderness but her alertness and wakefulness has improved. WBC 13.6 hemoglobin 11.9 platelet count 308,000 sodium 137 potassium 4 chloride 106 bicarb 23 BUN 64 creatinine 3.37 glucose 55 calcium 8.6 phosphorus 4.9 AST 212 ALT 144 alk phos 144 troponin 0.032 albumin 2.8. Urinalysis show +1 protein large leukocyte Estrace small blood 87 WBC. Digoxin level 2.5. Liver ultrasound reported as suboptimal study to consider CT to explore anechoic area anterior to the left kidney and inferior to the spleen and some fluid collection posterior to the bladder 08/30/2024 patient seen and examined at bedside. On interview, patient is confused. Per patient, she reported that her suprapubic pain is gone but she still feels some bladder fullness despite having a catheter. WBC 9.9 hemoglobin 12 platelet count 303,000 sodium 139 potassium 4 chloride 110 bicarb 22 BUN 53 creatinine 2. 01 glucose 135 calcium 8.8 AST 417 ALT 204 alk phos 203 albumin 2.8. KUB x-ray was negative for stones 08/31/2024 Patient seen and examined at bedside. No acute events overnight. Continues to be encephalopathic. WBC 7.3, hemoglobin 12.5, creatinine 1.43, bicarb 20, AST 331, ALT 201, ALP 177 09/01/2024 patient seen and examined at bedside. No acute events overnight. Patient still encephalopathic. Still on a Navarrete catheter. WBC 7.6 hemoglobin 12.5 chloride 117 bicarb 20 BUN 25 creatinine 1.15 calcium 1.5 09/02/2024 patient seen and examined at bedside. No acute events overnight. Patient is still encephalopathic. Patient still placed on a Navarrete catheter. WBC 6.5 hemoglobin 10.7 MCV 106 sodium 141 potassium 3.6 chloride 114 BUN 19 creatinine 1.09 phosphorus 2.4 total bilirubin 0.4 AST 441 ALT 244 alk phos 276 albumin 2.6 09/03/2024 patient seen and examined at bedside. Patient noted to have better mentation today but still confused and lethargic. Patient has no acute events overnight. WBC 6.5 hemoglobin 10.9 platelet count 267,000 sodium 139 potassium 3.7 chloride 115 BUN 14 creatinine 0.98 glucose 82 AST 396 ALT 233 alk phos 279 albumin 2.5 09/04/2024 patient seen and examined at bedside. Patient was noted to have waxi ng and waning from confusion but is alert and awake and cooperative. No acute events overnight. WBC 7.2 hemoglobin 11.3 platelet count 291,000 sodium 140 potassium 3.7 bicarb 26 BUN 14 creatinine 1.04 glucose 82 AST 27 ALT 2013 ALP 273 albumin 2.8 calcium 8.7 Review of systems: Pertinent positives and negatives as discussed in HPI, a complete review of systems was performed and all other systems are negative. Pertinent imaging and labs reviewed. Physical examination: Vital signs reviewed General: non toxic, no distress, on Navarrete catheter Derm: no unusual rashes/lesions, warm Head: atraumatic, normocephalic, symmetric Eyes: EOMI, anicteric sclera, pupils equal round reactive to light ENT: Nose and ears atraumatic Neck: No cervical lymphadenopathy, trachea midline, supple Mouth: no lip lesion, mucus membranes moist Cardiovascular: S1S2 reg, no murmur Lungs: CTA bilateral, no rhonchi, no rales, no accessory muscle use Abdominal: soft, suprapubic area tender to light palpation, no guarding Ext: muscle strength 5 out of 5 in all 4 extremities grossly, no gross muscle atrophy, no contractures, positive dorsalis pedis pulse bilateral, no extremity edema Neuro: CN II-XI grossly intact, no gross focal neuro deficits Psych: Alert and oriented x 1, appropriate affect and mood Assessment and Plan 78 year old F with PMH of CAD, HFrEF EF 25-30% on 10/2023 Echo, recurrent UTI, DM, Gout, A-Fib (on Eliquis), Hypothyroid, Dementia, Gastritis presents for recheck/abnormal lab. Patient is being worked up for JANNETH and acute metabolic encephalopathy. #Acute metabolic encephalopahty: Unknown etiology #Hypoactive delirium #JANNETH on chronic kidney disease: Potentially postrenal less likely medication side effect, resolved #Urinary tract infection status post antibiotics #Leukocytosis, resolved -KUB x-ray was negative for stones -CT brain without contrast no acute process with nonspecific white matter changes -Echo done last 08/18 ejection fraction of 50 to 55% moderate mitral regurgitation mild to moderate aortic regurgitation and severe pulmonary hypertension -EEG is abnormal for metabolic encephalopathy -Vitamin B12 levels 1914 -Hold home losartan and metformin -Avoid nephrotoxic agents -Status post ceftriaxone 2 g IVPB daily on 09/02 -Continue oral Tylenol 500 every 6 hours scheduled has been possibly causing delirium -On Navarrete catheter - Strict I&O -Fall precautions -Nephrology following -Per cardiology, Eliquis decreased to 2.5 mg twice daily and restart Demadex. Metoprolol succinate 75 mg twice daily. Discontinue digoxin. -Neuro consulted. 5 mg melatonin for the evening. Hold Seroquel -Delirium improving with scheduled Tylenol, continue 500 every 6 hours #Transaminitis, stable -Previously elevated on recent admission. Still continues to be elevated today. Patient experiences no right upper quadrant pain - liver u/s reported as suboptimal study to consider CT to explore anechoic area anterior to the left kidney and inferior to the spleen and some fluid collection posterior to the bladder -GGT 203 -Continue to monitor CMP #Hyperphosphatemia -In the setting of JANNETH on CKD -Continue to monitor #Elevated troponin, resolved -Patient denying chest pain -Troponin peaked at 0.039 -Elevated in the setting of CKD #Leukocytosis: Potentially reactive versus UTI, resolved -UA +1 protein large leukocyte Estrace small blood 87 WBC. - urine culture negative -Continue to monitor CBC -Most recent cultures growing Evelyn and E. coli, possible Evelyn colonization, had pansensitive E. coli, restarted on IV ceftriaxone -Status post ceftriaxone 2 g IVPB daily on 09/02 Chronic Conditions: #. Hypertension: -Hold losartan and torsemide in setting of JANNETH #. Atrial fibrillation #. Digoxin toxicity -Continue home Eliquis 5 mg p.o. twice daily -Discontinue digoxin per cardiology #. Hyperlipidemia: -Continue home Lipitor 40 mg p.o. at bedtime #. Dementia: -Continue home memantine 5 mg p.o. twice daily #. Hypothyroidism: -Increase home Synthroid 112 mcg p.o. daily - TSH 27, downtrending from previous levels #. Gout: -Changed home allopurinol 300 to allopurinol 100 mg p.o. at bedtime #Diabetes mellitus: -Hold home medication -Started on sliding scale, monitor for hypoglycemia -Accu-Cheks #CAD: -Continue home Plavix 75 mg p.o. at bedtime F: Oral intake E: None N: Regular diet DVT ppx: Eliquis 2.5mg p.o. twice daily GI ppx: Continue home Protonix 40 mg p.o. daily CODE STATUS: Full code Dispo: Pending medical course. Likely discharge to rehab facility. Najma Barone MD PGY-1/Music Researcher Dictation was produced using [employer] dictation software. please excuse any grammatical, word or spelling errors. I have seen and evaluated the patient today. Discussed with the resident and agree with the residents finding and plan as documented in the resident's note. Changes highlighted in blue font. Objective - Vital Signs Vital signs: Vital Signs Temp 98.2 F 09/04/24 03:41 Pulse 63 09/04/24 03:41 Resp 16 09/04/24 03:41 BP 144/87 09/04/24 03:41 Pulse Ox 96 09/04/24 03:41 FiO2 Intake & Output 09/03/24 09/03/24 09/04/24 06:59 18:59 06:59 Intake Total 360 Output Total 350 1600 850 Balance -350 -9915 -746 Weight 74.5 kg 72 kg Intake: Oral 360 Output: Urine 350 1600 850 Other: Voiding Method Indwelling Catheter Indwelling Catheter Indwelling Catheter - Labs CBC & Chem 7: 09/04/24 09:09 09/04/24 09:09 Labs: Abnormal Lab Results - Last 24 Hours (Table) 09/03/24 09/03/24 09/03/24 Range/Units 06:20 11:21 16:05 Chloride 115 H (98-107) mmol/L POC Glucose (mg/dL) 174 H 167 H (70-110) mg/dL AST 396 H (14-36) U/L ALT 233 H (4-34) U/L Alkaline Phosphatase 279 H (38-126) U/L Total Protein 5.0 L (6.3-8.2) g/dL Albumin 2.5 L (3.5-5.0) g/dL 09/03/24 Range/Units 20:12 Chloride (98-107) mmol/L POC Glucose (mg/dL) 164 H (70-110) mg/dL AST (14-36) U/L ALT (4-34) U/L Alkaline Phosphatase (38-126) U/L Total Protein (6.3-8.2) g/dL Albumin (3.5-5.0) g/dL
--- NOTE | 2024-09-04 13:47 | P.PN ---
Subjective HISTORY OF PRESENT ILLNESS: This is a 78-year-old female with a past medical history significant for persistent atrial fibrillation, hypertension, hyperlipidemia, coronary artery disease, ischemic cardiomyopathy, and valvular heart disease. Patient follows in the office with Dr. Garibay. We have been asked to see the patient in consultation for atrial fibrillation. Patient examined at the bedside. Patient is admitted to the hospital secondary to urinary tract infection, acute kidney injury, and metabolic encephalopathy. Patient is confused at the time of examination. She denies any chest pain or pressure. Denies any shortness of breath. Vital signs are stable. Telemetry reveals atrial fibrillation with controlled ventricular rate. It is noted that the patient was in the office on August 15, 2024. Patient's metoprolol succinate was increased to 100 mg twice a day and she was started on digoxin 125mcg daily. DIAGNOSTICS: - EKG reveals atrial fibrillation with controlled ventricular rate - Laboratory data: WBC 7.3. Hemoglobin 12.5. Platelet count 277. Sodium 140. Potassium 4.0. BUN 37. Creatinine 1.43. AST 331. ALT 201. Troponin 0.039. 0.032. - Current home cardiac medications include Lipitor 40 mg at night, digoxin 125mcg daily, losartan 12.5 mg daily, metoprolol succinate 150 mg at night although this was recently changed at her office visit, Plavix 75 mg at night, Demadex 20 mg daily, Eliquis 5 mg twice a day - Most recent echocardiogram obtained in August 2024 revealed ejection fraction 50 to 55%, severe pulmonary hypertension, moderate MR, mild to moderate AR, moderate to severe TR, small pericardial effusion - Cardiac catheterization history: October 2023 revealing mid LAD 80%, mild CAD in circumflex and RCA. Patient underwent stenting of the proximal LAD. 09/02/2024 Patient examined this morning at the bedside. Patient remains pleasantly confused. No complaints of chest pain or pressure. She denies shortness of breath. Telemetry reveals atrial fibrillation with controlled ventricular rate. Patient's LFTs continue to increase today. AST 441. ALT 244. Alkaline phosphatase 276. 09/03/2024 Patient examined this morning the bedside. Patient remains pleasantly confused. She denies chest pain or shortness of breath. Telemetry reveals atrial fibrillation with controlled ventricular rate. Patient's kidney function has normalized. BUN 14. Creatinine 0.98. LFTs remain elevated. AST 396. ALT 233. 09/04/2024 Patient examined this morning at the bedside. Patient's confusion seems to be slowly improving. Patient currently denies chest pain or pressure. Denies shortness of breath. Blood pressure remains elevated with a systolic in the 140s. [place] reveals atrial fibrillation with controlled ventricular rate in the 70s. PHYSICAL EXAM: VITAL SIGNS: Reviewed. GENERAL: Well-developed in no acute distress. HEENT: Head is normocephalic. Pupils are equal, round. Sclerae anicteric. Mucous membranes of the mouth are moist. Neck supple. No JVD or thyromegaly LUNGS: Respirations even and unlabored. Lungs essentially clear to auscultation bilaterally. HEART: Irregular rate and rhythm. S1 and S2 heard. ABDOMEN: Soft. Nondistended. Nontender. EXTREMITIES: Normal range of motion. No clubbing or cyanosis. Peripheral pulses intact. No lower extremity edema NEUROLOGIC: Awake and alert. Pleasantly confused. ASSESSMENT: Acute metabolic encephalopathy, improving Acute kidney injury resolved Minimally elevated troponin, secondary to poor renal clearance, no evidence of myocardial injury or ischemia Urinary tract infection Possible digoxin toxicity Persistent atrial fibrillation with controlled ventricular rate Coronary artery disease with previous stenting to the proximal LAD, October 2023 History of ischemic cardiomyopathy with improved EF Valvular heart disease Transaminitis PLAN: Continue metoprolol succinate 75 mg twice a day Hold statin due to transaminitis Digoxin has been discontinued upon admission Demadex resumed yesterday Losartan resumed yesterday. Increase dosage to 25 mg today for optimal blood pressure control Creased Eliquis back to 5 mg twice a day Continue telemetry monitoring Patient is currently stable from a cardiac perspective Further recommendations pending patient course Nurse practitioner note has been reviewed by physician. Signing provider agrees with the documented findings, assessment, and plan of care documented by TRAILER MECHANIC as a scribe. Objective - Vital Signs Vital signs: Vital Signs Temp 97.7 F 09/04/24 08:40 Pulse 65 09/04/24 12:07 Resp 15 09/04/24 12:07 BP 139/67 09/04/24 12:07 Pulse Ox 96 09/04/24 12:07 FiO2 Intake & Output 09/03/24 09/04/24 09/04/24 18:59 06:59 18:59 Intake Total 360 120 Output Total 1600 850 500 Balance -1240 -850 -380 Weight 72 kg Intake: Oral 360 120 Output: Urine 1600 850 500 Other: Voiding Method Indwelling Catheter Indwelling Catheter Indwelling Catheter - Labs CBC & Chem 7: 09/04/24 09:09 09/04/24 09:09 Labs: Abnormal Lab Results - Last 24 Hours (Table) 09/03/24 09/03/24 09/04/24 Range/Units 16:05 20:12 09:09 RBC 3.47 L (3.80-5.40) m/uL Hgb 11.3 L (11.4-16.0) gm/dL MCV 103.5 H (80.0-100.0) fL RDW 16.6 H (11.5-15.5) % Chloride (98-107) mmol/L POC Glucose (mg/dL) 167 H 164 H (70-110) mg/dL AST (14-36) U/L ALT (4-34) U/L Alkaline Phosphatase (38-126) U/L Total Protein (6.3-8.2) g/dL Albumin (3.5-5.0) g/dL 09/04/24 09/04/24 Range/Units 09:09 11:15 RBC (3.80-5.40) m/uL Hgb (11.4-16.0) gm/dL MCV (80.0-100.0) fL RDW (11.5-15.5) % Chloride 110 H (98-107) mmol/L POC Glucose (mg/dL) 145 H (70-110) mg/dL AST 287 H (14-36) U/L ALT 213 H (4-34) U/L Alkaline Phosphatase 273 H (38-126) U/L Total Protein 5.3 L (6.3-8.2) g/dL Albumin 2.8 L (3.5-5.0) g/dL
[2024-09-04 16:11] LABS: Glucose,Whole Blood 131 mg/dL (70-110)
[2024-09-04 20:00] VITALS: RESP 16
[2024-09-04 20:10] LABS: Glucose,Whole Blood 153 mg/dL (70-110)
[2024-09-04] MEDS: APIXABAN 5 MG TAB PO SCH (20:50)
[2024-09-05 04:20] VITALS: TEMP 97.4
[2024-09-05 06:02] LABS: Glucose,Whole Blood 97 mg/dL (70-110)
[2024-09-05 07:31] LABS: Anisocytosis Slight; Basophils # (A) 0.1 k/uL (0-0.2); Basophils % (A) 2 %; Eosinophils # (A) 0.3 k/uL (0-0.7); Eosinophils % (A) 4 %; HCT 36.7 % (34.0-46.0); HGB 11.2 gm/dL (11.4-16.0); Hypochromasia Marked; Lymphocytes # (A) 1.6 k/uL (1.0-4.8); Lymphocytes % (A) 26 %; MCH 32.8 pg (25.0-35.0); MCHC 30.6 g/dL (31.0-37.0); MCV 106.9 fL (80.0-100.0); Macrocytosis Marked; Mean Platelet Volume 9.1; Monocytes # (A) 0.4 k/uL (0-1.0); Monocytes % (A) 7 %; Neutrophils # (A) 3.5 k/uL (1.3-7.7); Neutrophils % (A) 59 %; Platelet Count 271 k/uL (150-450); RBC 3.43 m/uL (3.80-5.40); RDW 16.6 % (11.5-15.5)
[2024-09-05] MEDS: LOSARTAN 25 MG TAB PO SCH (08:54)
[2024-09-05] MEDS ORDERED: ACETAMINOPHEN TAB 500 MG TAB PO PRN (09:38)
[2024-09-05 10:01] LABS: ALT 203 U/L (4-34); AST 237 U/L (14-36); African American GFR (CKD) 54 (>60 ml/min/1.73 sqM); Albumin 2.5 g/dL (3.5-5.0); Alkaline Phosphatase 257 U/L (38-126); Anion Gap 4 mmol/L; Blood Urea Nitrogen 18 mg/dL (7-17); Calcium 8.5 mg/dL (8.4-10.2); Carbon Dioxide 24 mmol/L (22-30); Chloride 111 mmol/L (98-107); Glucose 92 mg/dL (74-99); Non-African American GFR(CKD) 47 (>60 ml/min/1.73 sqM); Phosphorus 3.6 mg/dL (2.5-4.5); Potassium 3.4 mmol/L (3.5-5.1); Sodium 139 mmol/L (137-145); Total Bilirubin 0.5 mg/dL (0.2-1.3); Total Protein 4.9 g/dL (6.3-8.2)
--- NOTE | 2024-09-05 10:50 | P.PN ---
Subjective Progress Note Date: 09/05/24 Principal diagnosis: Altered mental status with underlying dementia and recent urinary tract infection. rachell Brito is a 78-year-old female with history of chronic kidney di sease, coronary artery disease, CHF with ejection fraction of 25 to 50%, urinary tract infections, gastroesophageal reflux disease, diabetes, gout, atrial fibrillation, hypothyroidism, dementia for which she takes Namenda, atrial fibrillation who was admitted to [facility] on August 28 as she was confused and falling asleep during interviewing. She had been complaining of some decreased urine output as well as dysuria over the past couple of days and was noted to have a urinary tract infection with 87 white blood cells and large leukocyte esterase for which she is currently on ceftriaxone 75 mg daily. It has been noted that she has been "pleasantly confused" by staff during the day and neurology was consulted for further management recommendations. Such as by nursing staff she does not appear to be sleeping well and sleeps mostly during the day. On 09/01/24 the patient does denied any significant hallucinations or significant paranoia however she does say she is "placed in strange places". On neurology follow-up on September 02, the patient remains sleepy confined to her bed. She does not know she is at hospital but is able to remember this fact after approximately 3 minutes after being told. She was able to follow some simple commands but has difficulty with complex commands. She was placed on melatonin 5 mg nightly to help regulate her sleep. On evaluation September 03, 2024, the patient apparently slept well overnight. She is off of antibiotics at this time. On evaluation. The patient was drowsy but was able to be oriented to the hospital though she could not divine with her location from visual cues. She did remember that she was in the hospital after approximately 3 to 5 minutes. On physical exam cranial nerves II through XII were normal and she had at least 3 out of 5 strength in the lower extremities. At this time she appears pleasantly confused though this is apparently worse than her home status, though family does note she has mild dementia. On reevaluation on September 05, 2024, she has been noted by nursing staff to sleep well through the night and is actually getting up to her chair with physical therapy this morning. When evaluated, the patient appears quite alert and is able to recall my name as well as follow simple commands but not complex commands. She does not appear to have any significant neurologic focality at this time. Pertinent studies include electroencephalogram from September 01 which reveals a background slowing at 4 to 6 Hz with some myogenic artifact in the bifrontal area and superimposed 10 to 11 Hz beta rhythm possibly consistent with benzodiazepine use a CT of the head was performed this morning September 02 which does not rule any acute findings but evidence of a nonspecific small vessel disease. Conclusion: Ms. Brito is a 78-year-old female with admission on August 28 for altered mental status. She has an urinary tract infection and is completed a course of ceftriaxone. Her mental status appears mildly improved at this time but likely she has some underlying dementia. 1. I would recommend continuing melatonin 5 mg nightly upon discharge. 2. The patient appears to be making gradual progress towards improved mental status; however, she does have a history of underlying dementia for which she takes Namenda and fall should follow-up with a neurologist upon discharge for this diagnosis. 3. Neurology will tentatively sign off for now but if the patient has a decline in her mental status please recall a reconsult as needed. Objective - Vital Signs Vital signs: Vital Signs Temp 97.4 F L 09/05/24 08:10 Pulse 59 L 09/05/24 08:10 Resp 16 09/05/24 08:10 BP 127/80 09/05/24 08:10 Pulse Ox 95 09/05/24 08:10 FiO2 Intake & Output 09/04/24 09/05/24 09/05/24 18:59 06:59 18:59 Intake Total 358 236 Output Total 1700 Balance -1342 236 Weight 71.5 kg Intake: Oral 358 236 Output: Urine 1700 Other: Voiding Method Indwelling Catheter Indwelling Catheter Indwelling Catheter # Voids 1 # Bowel Movements 0 - Labs CBC & Chem 7: 09/05/24 05:52 09/05/24 05:52 Labs: Abnormal Lab Results - Last 24 Hours (Table) 09/04/24 09/04/24 09/04/24 Range/Units 11:15 16:07 20:08 RBC (3.80-5.40) m/uL Hgb (11.4-16.0) gm/dL MCV (80.0-100.0) fL MCHC (31.0-37.0) g/dL RDW (11.5-15.5) % Macrocytosis Potassium (3.5-5.1) mmol/L Chloride (98-107) mmol/L BUN (7-17) mg/dL Creatinine (0.52-1.04) mg/dL POC Glucose (mg/dL) 145 H 131 H 153 H (70-110) mg/dL AST (14-36) U/L ALT (4-34) U/L Alkaline Phosphatase (38-126) U/L Total Protein (6.3-8.2) g/dL Albumin (3.5-5.0) g/dL 09/05/24 09/05/24 Range/Units 05:52 05:52 RBC 3.43 L (3.80-5.40) m/uL Hgb 11.2 L (11.4-16.0) gm/dL MCV 106.9 H (80.0-100.0) fL MCHC 30.6 L (31.0-37.0) g/dL RDW 16.6 H (11.5-15.5) % Macrocytosis Marked A Potassium 3.4 L (3.5-5.1) mmol/L Chloride 111 H (98-107) mmol/L BUN 18 H (7-17) mg/dL Creatinine 1.12 H (0.52-1.04) mg/dL POC Glucose (mg/dL) (70-110) mg/dL AST 237 H (14-36) U/L ALT 203 H (4-34) U/L Alkaline Phosphatase 257 H (38-126) U/L Total Protein 4.9 L (6.3-8.2) g/dL Albumin 2.5 L (3.5-5.0) g/dL
--- NOTE | 2024-09-05 11:22 | P.PN ---
Subjective HISTORY OF PRESENT ILLNESS: This is a 78-year-old female with a past medical history significant for persistent atrial fibrillation, hypertension, hyperlipidemia, coronary artery disease, ischemic cardiomyopathy, and valvular heart disease. Patient follows in the office with Dr. Graibay. We have been asked to see the patient in consultation for atrial fibrillation. Patient examined at the bedside. Patient is admitted to the hospital secondary to urinary tract infection, acute kidney injury, and metabolic encephalopathy. Patient is confused at the time of examination. She denies any chest pain or pressure. Denies any shortness of breath. Vital signs are stable. Telemetry reveals atrial fibrillation with controlled ventricular rate. It is noted that the patient was in the office on August 15, 2024. Patient's metoprolol succinate was increased to 100 mg twice a day and she was started on digoxin 125mcg daily. DIAGNOSTICS: - EKG reveals atrial fibrillation with controlled ventricular rate - Laboratory data: WBC 7.3. Hemoglobin 12.5. Platelet count 277. Sodium 140. Potassium 4.0. BUN 37. Creatinine 1.43. AST 331. ALT 201. Troponin 0.039. 0.032. - Current home cardiac medications include Lipitor 40 mg at night, digoxin 125mcg daily, losartan 12.5 mg daily, metoprolol succinate 150 mg at night although this was recently changed at her office visit, Plavix 75 mg at night, Demadex 20 mg daily, Eliquis 5 mg twice a day - Most recent echocardiogram obtained in August 2024 revealed ejection fraction 50 to 55%, severe pulmonary hypertension, moderate MR, mild to moderate AR, moderate to severe TR, small pericardial effusion - Cardiac catheterization history: October 2023 revealing mid LAD 80%, mild CAD in circumflex and RCA. Patient underwent stenting of the proximal LAD. 09/02/2024 Patient examined this morning at the bedside. Patient remains pleasantly confused. No complaints of chest pain or pressure. She denies shortness of breath. Telemetry reveals atrial fibrillation with controlled ventricular rate. Patient's LFTs continue to increase today. AST 441. ALT 244. Alkaline phosphatase 276. 09/03/2024 Patient examined this morning the bedside. Patient remains pleasantly confused. She denies chest pain or shortness of breath. Telemetry reveals atrial fibrillation with controlled ventricular rate. Patient's kidney function has normalized. BUN 14. Creatinine 0.98. LFTs remain elevated. AST 396. ALT 233. 09/04/2024 Patient examined this morning at the bedside. Patient's confusion seems to be slowly improving. Patient currently denies chest pain or pressure. Denies shortness of breath. Blood pressure remains elevated with a systolic in the 140s. Parker reveals atrial fibrillation with controlled ventricular rate in the 70s. 09/05/2024 Patient examined this morning at the bedside. Patient currently denies chest pain or pressure. She denies shortness of breath. She is eating breakfast at the time of examination. Patient's blood pressures in the 140s overnight. However blood pressure this morning 127/80. AST 237. ALT 203. PHYSICAL EXAM: VITAL SIGNS: Reviewed. GENERAL: Well-developed in no acute distress. HEENT: Head is normocephalic. Pupils are equal, round. Sclerae anicteric. Mucous membranes of the mouth are moist. Neck supple. No JVD or thyromegaly LUNGS: Respirations even and unlabored. Lungs essentially clear to auscultation bilaterally. HEART: Irregular rate and rhythm. S1 and S2 heard. ABDOMEN: Soft. Nondistended. Nontender. EXTREMITIES: Normal range of motion. No clubbing or cyanosis. Peripheral pulses intact. No lower extremity edema NEUROLOGIC: Awake and alert. Pleasantly confused. ASSESSMENT: Acute metabolic encephalopathy, improving Acute kidney injury resolved Minimally elevated troponin, secondary to poor renal clearance, no evidence of myocardial injury or ischemia Urinary tract infection Possible digoxin toxicity Persistent atrial fibrillation with controlled ventricular rate Coronary artery disease with previous stenting to the proximal LAD, October 2023 History of ischemic cardiomyopathy with improved EF Valvular heart disease Transaminitis PLAN: Continue metoprolol succinate 75 mg twice a day Hold statin due to transaminitis Digoxin has been discontinued upon admission Continue additional cardiac medications Continue telemetry monitoring Patient is currently stable from a cardiac perspective Discharge per medicine Further recommendations pending patient course Nurse practitioner note has been reviewed by physician. Signing provider agrees with the documented findings, assessment, and plan of care documented by CAMP [employer]OSS as a scribe. Objective - Vital Signs Vital signs: Vital Signs Temp 97.4 F L 09/05/24 08:10 Pulse 59 L 09/05/24 08:10 Resp 16 09/05/24 08:10 BP 127/80 09/05/24 08:10 Pulse Ox 95 09/05/24 08:10 FiO2 Intake & Output 09/04/24 09/05/2424 18:59 06:59 18:59 Intake Total 358 236 Output Total 1700 Balance -1342 236 Weight 71.5 kg Intake: Oral 358 236 Output: Urine 1700 Other: Voiding Method Indwelling Catheter Indwelling Catheter Indwelling Catheter # Voids 1 # Bowel Movements 0 - Labs CBC & Chem 7: 09/05/24 05:52 09/05/24 05:52 Labs: Abnormal Lab Results - Last 24 Hours (Table) 09/04/24 09/04/24 09/05/24 Range/Units 16:07 20:08 05:52 RBC (3.80-5.40) m/uL Hgb (11.4-16.0) gm/dL MCV (80.0-100.0) fL MCHC (31.0-37.0) g/dL RDW (11.5-15.5) % Macrocytosis Potassium 3.4 L (3.5-5.1) mmol/L Chloride 111 H (98-107) mmol/L BUN 18 H (7-17) mg/dL Creatinine 1.12 H (0.52-1.04) mg/dL POC Glucose (mg/dL) 131 H 153 H (70-110) mg/dL AST 237 H (14-36) U/L ALT 203 H (4-34) U/L Alkaline Phosphatase 257 H (38-126) U/L Total Protein 4.9 L (6.3-8.2) g/dL Albumin 2.5 L (3.5-5.0) g/dL 09/05/24 Range/Units 05:52 RBC 3.43 L (3.80-5.40) m/uL Hgb 11.2 L (11.4-16.0) gm/dL MCV 106.9 H (80.0-100.0) fL MCHC 30.6 L (31.0-37.0) g/dL RDW 16.6 H (11.5-15.5) % Macrocytosis Marked A Potassium (3.5-5.1) mmol/L Chloride (98-107) mmol/L BUN (7-17) mg/dL Creatinine (0.52-1.04) mg/dL POC Glucose (mg/dL) (70-110) mg/dL AST (14-36) U/L ALT (4-34) U/L Alkaline Phosphatase (38-126) U/L Total Protein (6.3-8.2) g/dL Albumin (3.5-5.0) g/dL
[2024-09-05 11:45] LABS: Glucose,Whole Blood 133 mg/dL (70-110)
[2024-09-05] MEDS: LOSARTAN 25 MG TAB PO STA (12:09)
[2024-09-05 12:46] VITALS: BP 136/60; PULSE 63
--- NOTE | 2024-09-05 13:12 | P.DS ---
Providers Date of admission: 08/28/24 18:56 Attending physician: Belen Sorto MD Consults: 08/28/24 18:55 Consult Physician Routine Consulting Provider: Vishal Blount Consult Reason/Comments: JANNETH,CKD Do you want consulting provider notified?: Yes 08/31/24 17:18 Consult Physician Routine Consulting Provider: Philipp Ulrich Consult Reason/Comments: afib, pt known to dr castillo Do you want consulting provider notified?: Yes, Notify in am 09/01/24 10:04 Consult Physician Routine Consulting Provider: Joe Mayes Consult Reason/Comments: encephalopathy Do you want consulting provider notified?: Yes [facility] Course: Hospital Course: History of present illness; 78 year old F with PMH of CKD 3B, CAD, HFrEF EF 25- 30% on 10/2023 Echo, recurrent UTI, DM, Gout, A-Fib (on Eliquis), Hypothyroid, Dementia, Gastritis presents for recheck/abnormal lab. History limited due to patient being very tired and falling asleep during most questions asked. Repo rts for the last 2 days she has had decreased urine output. States she also has had some suprapubic pain, as well as some dysuria during the last 2 days as well. Denies headache, chest pain, shortness of breath, nausea, vomiting, diarrhea, constipation, abdominal pain, and lower extremity swelling. Labs in the ED showed WBC 15.3, MCV 102.9, neutrophils 0.5, sodium 134, BUN 65, creatinine 3.73, phosphorus 5.5, AST 193, ALT 129, alkaline phosphatase 146, troponin 0.039, BNP 5550, and TSH 27.2. Imaging on admission showed EKG done in the ER showed heart rate of 71 bpm, atrial fibrillation with aberrant conduction or ventricular premature complexes, right bundle branch block, and QTc 394. Patient was admitted for evaluation of acute metabolic encephalopathy, transaminitis and JANNETH. Patient was placed on IVF normal saline, nephrotoxic agents were held, he was placed on Navarrete catheter. Patient also noted to have elevated troponins and cardiology was consulted and advised discontinue digoxin. BUN and creatinine down trended on 09/03 but patient continued to be confused. Per family, patient usually has long-term altered mentation whenever she has a UTI. Levothyroxine increased to 112 mcg. Neurology consulted and at time to optimize patient's lipid 5 mg melatonin and Seroquel was held. EEG done was noted to have metabolic encephalopathy. Patient placed on scheduled Tylenol 500 mg p.o. due to concern for uncontrolled pain causing delirium. Despite patient being confused, patient has not had any new symptoms or complaints since admission. Patient is discharged today to correction and prescribed melatonin, MiraLAX, and as needed Tylenol. Advised family to have patient follow-up with PCP on outpatient basis including optimization of lipid control in the setting of stable transaminitis. Final Diagnosis: #Acute metabolic encephalopahty: Unknown etiology, stable #Hypoactive delirium, stable #JANNETH on chronic kidney disease: Potentially postrenal less likely medication side effect, resolved #Urinary tract infection status post antibiotics, resolved #Leukocytosis, resolved #Transaminitis, stable #Elevated troponin, resolved #Hypertension #Atrial fibrillation, stable #Digoxin toxicity, resolved #Hyperlipidemia #Dementia #Hypothyroidism #Gout #Diabetes mellitus #CAD Physical examination: Vital signs reviewed General: non toxic, no distress, appears at stated age, normal weight Derm: no unusual rashes/lesions, warm Head: atraumatic, normocephalic, symmetric Eyes: EOMI, anicteric sclera, pupils equal round reactive to light ENT: Nose and ears atraumatic Neck: No cervical lymphadenopathy, trachea midline, supple Mouth: no lip lesion, mucus membranes moist Cardiovascular: S1S2 reg, no murmur Lungs: CTA bilateral, no rhonchi, no rales, no accessory muscle use Abdominal: soft, nondistended, nontender to palpation, no guarding Ext: muscle strength 5 out of 5 in all 4 extremities grossly, no gross muscle atrophy, no contractures, positive dorsalis pedis pulse bilateral, no edema Neuro: CN II-XI grossly intact, no gross focal neuro deficits Psych: Alert and oriented to self, appropriate affect and mood I saw and evaluated the patient during the timmons and critical portions of this encounter, and discussed the case in detail with the resident author of this note, I agree with the Assessment and Plan, and my changes, if any, are highlighted in blue. Patient Condition at Discharge: Stable Plan - Discharge Summary Discharge Rx Participant: No New Discharge Prescriptions: New Losartan [Cozaar] 25 mg PO DAILY #90 tab Levothyroxine Sodium [Synthroid] 112 mcg PO DAILY@0630 #0 tab Melatonin 5 mg PO HS tab polyethylene glycoL 3350 [Miralax] 17 gm PO DAILY packet Acetaminophen Tab [Tylenol] 500 mg PO Q6HR PRN tab PRN Reason: Breakthrough Pain Continue FLUoxetine HCL [PROzac] 60 mg PO HS allopurinoL [Zyloprim] 300 mg PO HS Zafirlukast [Accolate] 20 mg PO BID Memantine [Namenda] 5 mg PO BID tab Nitroglycerin Sl Tabs [Nitrostat] 0.4 mg SL Q5M PRN PRN Reason: Chest Pain Pantoprazole Sodium [Protonix] 40 mg PO DAILY@0600 Torsemide [Demadex] 20 mg PO DAILY@0600 Cranberry 450mg 1 tab PO DAILY Apixaban [Eliquis] 5 mg PO BID #60 tab metFORMIN HCL [Glucophage] 500 mg PO BID L.acidoph,Paracasei, B.lactis [Probiotic] 1 cap PO DAILY Bismuth Subsalicylate [Pepto-Bismol] 524 mg PO Q4H PRN PRN Reason: Gi Upset Calcium Carbonate [Tums] 500 mg PO QID PRN PRN Reason: Gi Upset Estradiol Cream [Estrace Cream 0.01%] 1 gm VAGINAL MOTH Methenamine Hippurate 1 gm PO BID ondansetron HCL [Zofran] 8 mg PO Q8HR PRN PRN Reason: Nausea And Vomiting Clopidogrel [Plavix] 75 mg PO HS Metoprolol Succinate (ER) [Toprol XL] 50 mg PO HS Metoprolol Succinate (ER) [Toprol XL] 100 mg PO HS Discontinued Atorvastatin [Lipitor] 40 mg PO HS tab Levothyroxine Sodium [Synthroid] 75 mcg PO DAILY@0600 Promethazine HCl 12.5 mg PO AC-TID@07,11,16 Digoxin [Digitek] 125 mcg PO DIRECTED Losartan [Cozaar] 12.5 mg PO DAILY tab Fluconazole [Diflucan] 100 mg PO DAILY #10 tab Discharge Medication List FLUoxetine HCL [PROzac] 60 mg PO HS 08/02/20 [History] Zafirlukast [Accolate] 20 mg PO BID 08/02/20 [History] allopurinoL [Zyloprim] 300 mg PO HS 08/02/20 [History] Apixaban [Eliquis] 5 mg PO BID #60 tab 10/16/23 [Rx] Memantine [Namenda] 5 mg PO BID tab 03/24/24 [Rx] Nitroglycerin Sl Tabs [Nitrostat] 0.4 mg SL Q5M PRN 05/08/24 [History] Bismuth Subsalicylate [Pepto-Bismol] 524 mg PO Q4H PRN 06/25/24 [History] L.acidoph,Paracasei, B.lactis [Probiotic] 1 cap PO DAILY 06/25/24 [History] Pantoprazole Sodium [Protonix] 40 mg PO DAILY@0600 06/25/24 [History] metFORMIN HCL [Glucophage] 500 mg PO BID 06/25/24 [History] Calcium Carbonate [Tums] 500 mg PO QID PRN 08/05/24 [History] Estradiol Cream [Estrace Cream 0.01%] 1 gm VAGINAL MOTH 08/05/24 [History] Methenamine Hippurate 1 gm PO BID 08/05/24 [History] Clopidogrel [Plavix] 75 mg PO HS 08/28/24 [History] Cranberry 450mg 1 tab PO DAILY 08/28/24 [History] Metoprolol Succinate (ER) [Toprol XL] 50 mg PO HS 08/28/24 [History] Metoprolol Succinate (ER) [Toprol XL] 100 mg PO HS 08/28/24 [History] Torsemide [Demadex] 20 mg PO DAILY@0600 08/28/24 [History] ondansetron HCL [Zofran] 8 mg PO Q8HR PRN 08/28/24 [History] Acetaminophen Tab [Tylenol] 500 mg PO Q6HR PRN tab 09/05/24 [Rx] Levothyroxine Sodium [Synthroid] 112 mcg PO DAILY@0630 #0 tab 09/05/24 [Rx] Losartan [Cozaar] 25 mg PO DAILY #90 tab 09/05/24 [Rx] Melatonin 5 mg PO HS tab 09/05/24 [Rx] polyethylene glycoL 3350 [Miralax] 17 gm PO DAILY packet 09/05/24 [Rx] Follow up Appointment(s)/Referral(s): Blas Williamson DO [Primary Care Provider] - 1-2 days Activity/Diet/Wound Care/Special Instructions: Please see PCP Discharge Disposition: TRANSFER TO SNF/ECF
[2024-09-06] MEDS ORDERED: LOSARTAN 25 MG TAB PO SCH (09:00)
[2024-09-06] MEDS ORDERED: LOSARTAN 50 MG TAB PO SCH (09:00)
== END 2024-09-05 14:55 | DRG 689 ==
LOC: EC 16:09 → 3SCARD 18:56
PROVIDERS: ADMIT Internal Medicine; ATTEND Internal Medicine
DX: N30.00 Acute cystitis without hematuria (principal); G93.41 Metabolic encephalopathy; N17.0 Acute kidney failure with tubular necrosis; I48.19 Other persistent atrial fibrillation; I13.0 Hypertensive heart and chronic kidney disease with heart failure and stage 1 through stage 4 chronic kidney disease, or unspecified chronic kidney disease; I50.32 Chronic diastolic (congestive) heart failure; F03.93 Unspecified dementia, unspecified severity, with mood disturbance; F03.94 Unspecified dementia, unspecified severity, with anxiety; I27.20 Pulmonary hypertension, unspecified; E83.39 Other disorders of phosphorus metabolism; N18.32 Chronic kidney disease, stage 3b; E11.22 Type 2 diabetes mellitus with diabetic chronic kidney disease; E03.9 Hypothyroidism, unspecified; E78.5 Hyperlipidemia, unspecified; I25.5 Ischemic cardiomyopathy; I25.10 Atherosclerotic heart disease of native coronary artery without angina pectoris; E86.1 Hypovolemia; F32.A Depression, unspecified; I08.0 Rheumatic disorders of both mitral and aortic valves; I45.10 Unspecified right bundle-branch block; M10.9 Gout, unspecified; R74.01 Elevation of levels of liver transaminase levels; G47.30 Sleep apnea, unspecified; K21.9 Gastro-esophageal reflux disease without esophagitis; T46.0X5A Adverse effect of cardiac-stimulant glycosides and drugs of similar action, initial encounter; Z79.01 Long term (current) use of anticoagulants; Z79.02 Long term (current) use of antithrombotics/antiplatelets; Z79.84 Long term (current) use of oral hypoglycemic drugs; Z79.890 Hormone replacement therapy; Z79.899 Other long term (current) drug therapy; Z87.440 Personal history of urinary (tract) infections; Z95.5 Presence of coronary angioplasty implant and graft; Z98.84 Bariatric surgery status; Z88.4 Allergy status to anesthetic agent; Z88.2 Allergy status to sulfonamides; Z88.8 Allergy status to other drugs, medicaments and biological substances; Z82.49 Family history of ischemic heart disease and other diseases of the circulatory system
CPT/HCPCS: 36415; 51701; 51798; 70450; 74018; 76700; 76857; 80048; 80053; 80162; 81001; 82140; 82607; 82977; 83036; 83605; 83735; 83880; 84100; 84439; 84443; 84484; 85025; 85610; 85730; 87086; 93005; 94760; 95816; 96361; 96365; 96366; 99285